=== PATIENT | male | born 1960 | race Caucasian/White ===

== ENCOUNTER 2020-02-14 16:19 | Inpatient (IN) ==
[2020-02-14] MEDS ORDERED: PIPERACILLIN/TAZOBACTAM 4.5 GM/120 ML BAG IV ONE (16:47)
[2020-02-14] MEDS ORDERED: SODIUM CHLORIDE 0.9% 1000ML 2,000 ML IV ONE (16:47)
[2020-02-14] MEDS ORDERED: ACETAMINOPHEN 1,000 MG/100 ML VIAL IV STA (16:47)
[2020-02-14] MEDS ORDERED: PIPERACILL/TAZOBAC CONSULT ACTIVE PRN ×2 (16:47→21:33)
--- NOTE | 2020-02-14 17:05 | Emergency Department Note ---
Impression & Plan Sepsis, Cellulitis, Elevated troponin, Acute hypokalemia ED Provider Note NAME: GUSTAVO DODD AGE: 59 SEX: M ARRIVES VIA: Walk-In INFORMANT: Patient, ED PROVIDER(S): Zelalem Dos Santos MD CHIEF COMPLAINT: Weakness, fever PLAN: Disposition: Admit MEDICAL DECISION MAKING: The patient is a pleasant 59-year-old gentleman with a past medical history of basal cell carcinoma who presents emergency department with fevers and increased confusion over the past 48 hours with generalized weakness and body aches in the setting of having a suspected basal cell carcinoma resection of the left forehead nonhealing lesion that had been present for approximately 2 years with a family history of skin cancer on 02/09, he was prescribed Bactrim for prophylaxis but he did not get this filled till yesterday, in the setting of having symptoms of vertigo over the past several weeks for which she had an order for an outpatient MRI of his brain. On arrival the patient is in no acute distress, afebrile with stable vital signs. He appears clinically dry. He has a 4 cm suture site of the left forehead with mild surrounding erythema and warmth without any purulent discharge. Neck is supple full range of motion. He has no focal neuro deficits though he does exhibit generalized weakness throughout. Abdomen is benign. EKG without overt acute ischemia. Chest x-ray negative for acute cardiopulmonary process. WBC 18.8K with neutrophil predominance. H/H 11.1/34.prior values for comparison. Platelets within normal limits. Chemistry without acidosis. Potassium 3.3 with repletion provided. AST 108 and otherwise electrolytes and LFTs unremarkable. Troponin 0.997, mildly elevated suspected to be related to demand. Procalcitonin is significantly elevated at 7.15. Upon arrival given the patient's presentation he was ordered for empiric broad- spectrum antibiotics with Zosyn and vancomycin. Patient's COVID-19 PCR was negative. On reevaluation patient was feeling improved after IV fluid hydration, APAP, antibiotics. I did review his results with the patient and his at the bedside and communicated our concern for sepsis. He is agreeable for admission. Case was discussed with Dr. Boyd, [facility] hospitalist, who will evaluate the patient for admission. CT abd pelvis, per preliminary [facility] report with evidence of cirrhosis. Otherwise, no acute process. Triage Nursing notes reviewed and agree them. Prior medical records reviewed Vital Signs: reviewed and remarkable for no significant abnormalities Differential diagnosis: Viral syndrome, otitis, pharyngitis, pneumonia, influenza, meningitis, urinary tract infection, sepsis, bacteremia, as well as other pathologies. ER treatment provided: See below Diagnostics interpreted by me: ECG: Sinus tachycardia, 118 bpm, no ectopy, nonspecific ST and T wave abnormality, no overt ST elevation or depression, QTC 555, QRS 96. Cardiac Monitoring: An order for continuous cardiac monitoring was placed and demonstrated sinus tachycardia, 118 bpm, no ectopy. Laboratory studies: See below Imaging studies: SINGLE VIEW CHEST CLINICAL HISTORY: Sepsis. FINDINGS: An AP, portable, upright chest radiograph is compared to study dated 04/07/2015. The examination is degraded by portable technique, apical lordotic positioning, and patient rotation. The heart is enlarged noting atherosclerotic calcification of the thoracic aorta. The pulmonary vasculature is noncongested. The lungs and pleural spaces are clear. No pneumothorax is seen. The bony thorax is grossly intact. IMPRESSION: Cardiomegaly with no active disease in the chest. -- UNENHANCED CT OF THE BRAIN; CT ANGIOGRAM OF THE BRAIN; CT ANGIOGRAM OF THE NECK CLINICAL HISTORY: Change in mental status. Vertigo. COMPARISON STUDY: No priors. TECHNIQUE: Unenhanced axial CT scan of the brain is performed. Subsequently, following the IV administration of 119 of Optiray 320, CT angiogram of the head and neck was performed from the aortic arch to the vertex. Images are reviewed in the axial, sagittal, and coronal planes. 3-D MIPS images are created and assessed. IV contrast was administered without complication. All measurements were calculated based on NASCET criteria. A dose lowering technique was utilized adhering to the principles of ALARA. CT DOSE: 1215.53 mGy.cm FINDINGS: Brain parenchyma: There is minimal microangiopathic disease. There is no hemorrhage, mass effect, or evidence of acute territorial ischemia by CT criteria. There is no evidence of enhancing mass lesion on the angiogram phase images. The ventricles, sulci, and cisterns are normal in configuration. Qureshi- white matter differentiation is preserved. A chronic lacunar infarct is noted in the right swartz radiata. No extra-axial fluid collection is seen. Thoracic aorta: There is atherosclerotic calcification of the thoracic aorta. Visualized portions of the thoracic aorta are normal in caliber. The aortic arch demonstrates standard 3-vessel anatomy. Right carotid arterial system: The right common carotid artery is widely patent, as are the right internal and external carotid arteries. Calcified plaque is noted in the carotid bulb. Left carotid arterial system: The left common carotid artery is widely patent, as are the left internal and external carotid arteries. Calcified plaque is noted in the carotid bulb. Vertebral arteries: The vertebral arteries are widely patent bilaterally noting a right-sided dominance. Subclavian arteries: Widely patent bilaterally. Intracranial vasculature: There is atherosclerotic calcification of the cavernous carotid arteries. The internal carotid arteries are patent at the skull base, as are the anterior and middle cerebral arteries bilaterally. The vertebrobasilar system and posterior cerebral arteries are widely patent. The right vertebral artery is dominant. 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 No additional aneurysm is identified. There is no high-grade stenosis or focal vessel cut off seen throughout the intracranial circulation. Jugular veins: Patent bilaterally. Dural sinuses: Patent. Lung apices: Partially visualized upper lobe lung parenchyma appears clear. A mildly enlarged right paratracheal lymph node measures 1.8 x 1.0 cm. Soft tissues: The visualized pharyngeal soft tissues are normal in appearance noting angiographic phase technique. The oropharyngeal airway appears widely patent. The salivary and thyroid glands are normal in appearance. No cervical lymphadenopathy is seen. Skeletal structures: The calvarium appears intact. The cervical spine is within normal limits. No lytic or blastic lesion is seen. Orbits: The bony orbits are intact. Orbital contents are normal as imaged. Sinuses and mastoids: The paranasal sinuses are clear. The mastoid air cells are well pneumatized. IMPRESSION: 1. There is no hemorrhage, mass effect, or evidence of acute territorial ischemia by CT criteria. 2. Unremarkable CT angiogram of the neck. 3. 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 4. Otherwise unremarkable CT angiogram of the brain. 5. A pathologically indeterminant and mildly enlarged right paratracheal lymph node is seen in the upper chest. -- [facility] Preliminary Findings Only See Final Report For Complete Findings CT ABDOMEN & PELVIS Without Contrast: There is a slightly nodular surface to the liver. The portal vein is mildly dilated measuring 1.9 cm in diameter. The spleen is upper limits of normal measuring 15 cm. Consider mild cirrhosis. No ascites is present. Constipation with 6 cm of stool in the rectum. No dilated bowel loops are present. The appendix is normal. No acute inflammatory changes are seen i nvolving the bowel. There is contrast within the renal collecting system bilaterally. No hydronephr osis or ureterolithiasis is seen. There is a 15 mm calcified sigmoid diverticula abutting the posterior bladder wall. Moderate osteophytosis in the lower thoracic and lower lumbar spine. No acute fracture or subluxation is seen.. Incidental note is made of mild cardiomegaly and moderate coronary and valvular calcification. Radiologist: Florian Moe MD Study ready at 20:24 and initial results transmitted at 20:44 Consultation(s): Case was discussed with Dr. Boyd, [facility] hospitalist, who will evaluate the patient for admission. HPI: The patient is a pleasant 59-year-old gentleman with a past medical history of basal cell carcinoma who presents emergency department with fevers and increased confusion over the past 48 hours with generalized weakness and body aches in the setting of having a suspected basal cell carcinoma resection of the left forehead nonhealing lesion that had been present for approximately 2 years with a family history of skin cancer on 02/09, he was prescribed Bactrim for prophylaxis but he did not get this filled till yesterday, in the setting of having symptoms of vertigo over the past several weeks for which outpatient MRI of his brain was ordered. Denies cough, congestion, CP, SOB, nausea, vomiting, diarrhea. ROS: See above HPI for pertinent positives & negatives. A total of 10 systems reviewed and were otherwise negative. PAST MEDICAL HISTORY:See Below PAST SURGICAL HISTORY:See Below FAMILY HISTORY:See Below SOCIAL HISTORY:See Below HOME MEDICATIONS:See Below ALLERGIES:See Below VITALS:See Below PHYSICAL EXAMINATION: GENERAL: Awake, alert, ill-appearing, in no distress HENT: Normocephalic, atraumatic. Oropharynx with dry mucous membranes and otherwise unremarkable. EYES: Normal conjunctiva. Sclera non-icteric. EOMI. No nystamgus. PEARRL. NECK: Supple. No nuchal rigidity. FROM. No JVD. RESPIRATORY: Clear to auscultation. CARDIAC: Regular rate, normal rhythm. Extremities warm and well perfused. Pulses equal. ABDOMEN: Soft, non-distended. No tenderness to palpation. No rebound or guarding. No masses. RECTAL: Deferred. MUSCULOSKELETAL: Chest examination reveals no tenderness. The back is symmetrical on inspection without obvious abnormality. There is no CVA tenderness to palpation. No joint edema. LOWER EXTREMITIES: Calves are equal size bilaterally and non-tender. No edema. No discoloration. NEURO: Normal sensorium. No focal sensory or motor deficits noted. Speech is fluent though he does have some delayed responses to questions. He has generalized weakness in all extremities with 4/5 strength. Intact finger-to- nose. SKIN: No rash or jaundice noted. ED COURSE: Critical Care: I have personally spent greater than 45 minutes of critical care time in the di rect management of this patient. This includes bedside care, interpretation of diagnostic studies, and testing, discussion with consultants, patient, and family members, and other required patient management activities. This 45 minutes is in excess of all separately billable procedures. Zelalem Dos Santos MD Past Med/Surg History Medical History Asthma Benign essential hypertension Diabetes mellitus Obstructive sleep apnea Surgical History History of vasectomy Family History Father Heart disease Hypertension, Onset Age: 50 Kidney disease, Onset Age: 30 Kidney stones as young man Myocardial infarction Passed in 2006 with heart attack age 78 Brother Asthma Prostate cancer, Onset Age: 61 Treated Radiation and hormonal. Cancer younger brother, skin cancer Mother Cancer Skin cancer Brother Cancer skin cancer Denies family history of Ovarian cancer Diabetes Breast cancer Lung cancer Colorectal cancer Stroke Social History Smoking Status: Never smoker Second Hand Exposure: No; Do You Dip or Chew Tobacco: No; Hx Alcohol Use: Yes Alcohol type: beer Alcohol Intake Frequency: 2-4 x/Month Hx Substance Use: No Preferred Language: Mohawk Communication Ability: Effective Communication Ability Comment: [place] Hearing Ability: Hard of Hearing Bin Filler Required: No Beliefs That Will Affect Care: None marital status: Current Living Situation: Spouse current occupational status: employed 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 How many Children do You have: 0 How many Children do You have Comment: 1 step child Other Information That Helps Us Care for You: No Feels Safe at Home: Yes Safety Concerns: Feels Safe At This Time Childhood Exposure to Second-Hand Smoke: No Seatbelt Use: always Sunscreen Use: Yes Assistive Devices: CPAP and Glasses Allergies Allergies Allergy/AdvReac Type Severity Reaction Status Date / Time No Known Allergies Allergy Verified 02/10/20 11:31 Home Meds Home Medications Medication Instructions Recorded Confirmed ibuprofen [Advil] 400 mg PO Q6H PRN 02/14/20 02/14/20 Previous Rx's Medication Instructions Recorded sulfamethoxazole 800 1 tab PO BID 14 Days #28 tab 02/12/20 mg-trimethoprim 160 mg tablet Results & Data (ED) Vital Signs Vital Signs - 24 hr 02/14/20 16:22 02/14/20 16:40 02/14/20 16:45 Temperature 39.4 C H Temperature Source Oral Pulse Rate 125 H 119 H 117 H Pulse Rate [Apical] Pulse Rate from SpO2 Sensor 120 H 117 H Pulse Rhythm [Apical] Pulse Strength [Apical] Respiratory Rate 18 28 H 33 H Respiratory Effort / Characteristics Non-Labored Respiratory Depth Normal Respiratory Pattern Blood Pressure 124/70 114/66 119/69 Blood Pressure [Left Arm] Blood Pressure Mean 88 74 90 Blood Pressure Mean [Left Arm] Pulse Oximetry 97 95 95 Oxygen Delivery Method Room Air Sepsis Recent Fever Within 48 Hours Yes Sepsis New/Unexplained Change in Mental Status Yes Sepsis Action Taken by Nursing Physician Notified 02/14/20 16:50 02/14/20 17:00 02/14/20 17:15 Temperature Temperature Source Pulse Rate 117 H 122 H Pulse Rate [Apical] Pulse Rate from SpO2 Sensor 117 H 123 H Pulse Rhythm [Apical] Pulse Strength [Apical] Respiratory Rate 22 21 14 Respiratory Effort / Characteristics Non-Labored Respiratory Depth Respiratory Pattern Blood Pressure 121/72 108/58 L Blood Pressure [Left Arm] Blood Pressure Mean 88 79 Blood Pressure Mean [Left Arm] Pulse Oximetry 93 94 92 Oxygen Delivery Method Room Air Sepsis Recent Fever Within 48 Hours Sepsis New/Unexplained Change in Mental Status Sepsis Action Taken by Nursing 02/14/20 17:30 02/14/20 17:34 02/14/20 17:45 Temperature Temperature Source Pulse Rate 112 H 109 H Pulse Rate [Apical] Pulse Rate from SpO2 Sensor Pulse Rhythm [Apical] Pulse Strength [Apical] Respiratory Rate 22 Respiratory Effort / Characteristics Non-Labored Respiratory Depth Respiratory Pattern Blood Pressure 101/66 101/51 L Blood Pressure [Left Arm] Blood Pressure Mean 72 54 Blood Pressure Mean [Left Arm] Pulse Oximetry 93 Oxygen Delivery Method Room Air Sepsis Recent Fever Within 48 Hours Sepsis New/Unexplained Change in Mental Status Sepsis Action Taken by Nursing 02/14/20 18:00 02/14/20 18:18 02/14/20 18:23 Temperature Temperature Source Pulse Rate 87 98 H 96 H Pulse Rate [Apical] Pulse Rate from SpO2 Sensor 98 H 96 H Pulse Rhythm [Apical] Pulse Strength [Apical] Respiratory Rate 10 L Respiratory Effort / Characteristics Respiratory Depth Respiratory Pattern Blood Pressure 104/59 L 104/61 Blood Pressure [Left Arm] Blood Pressure Mean 73 70 Blood Pressure Mean [Left Arm] Pulse Oximetry 96 96 Oxygen Delivery Method Sepsis Recent Fever Within 48 Hours Sepsis New/Unexplained Change in Mental Status Sepsis Action Taken by Nursing 02/14/20 18:30 02/14/20 18:48 02/14/20 19:00 Temperature 36.7 C Temperature Source Oral Pulse Rate 95 H 89 Pulse Rate [Apical] Pulse Rate from SpO2 Sensor 95 H Pulse Rhythm [Apical] Pulse Strength [Apical] Respiratory Rate 25 H 29 H Respiratory Effort / Characteristics Non-Labored Respiratory Depth Respiratory Pattern Blood Pressure 109/63 106/63 Blood Pressure [Left Arm] Blood Pressure Mean 70 78 Blood Pressure Mean [Left Arm] Pulse Oximetry 96 Oxygen Delivery Method Room Air Sepsis Recent Fever Within 48 Hours Sepsis New/Unexplained Change in Mental Status Sepsis Action Taken by Nursing 02/14/20 19:15 02/14/20 19:30 02/14/20 19:34 Temperature Temperature Source Pulse Rate 102 H 89 Pulse Rate [Apical] 90 Pulse Rate from SpO2 Sensor 89 Pulse Rhythm [Apical] Regular Pulse Strength [Apical] Normal Respiratory Rate 26 H 16 18 Respiratory Effort / Characteristics Respiratory Depth Normal Respiratory Pattern Regular Blood Pressure 121/73 98/59 L Blood Pressure [Left Arm] 98/59 L Blood Pressure Mean 92 71 Blood Pressure Mean [Left Arm] 72 Pulse Oximetry 97 97 Oxygen Delivery Method Room Air Sepsis Recent Fever Within 48 Hours Sepsis New/Unexplained Change in Mental Status Sepsis Action Taken by Nursing Laboratory Data Attestation: I reviewed the patient's lab results. Result diagrams: 02/14/20 16:50 02/14/20 16:50 Lab Results 02/14/20 02/14/2020 Range/Units 16:50 16:50 16:50 WBC 18.83 H (4.8-10.8) K/uL RBC 3.67 L (4.7-6.1) M/uL Hgb 11.1 L (14.0-18.0) g/dL POC Hgb (14.0-18.0) g/dl Hct 34.0 L (42-52) % POC Hct (42-52) % MCV 92.6 (80-100) fL MCH 30.2 (25-34) pg MCHC 32.6 (32-36) g/dL RDW Std Deviation 44.1 (36.4-46.3) fL RDW Coeff of Arely 13.1 (11.5-14.5) % Plt Count 160 (130-400) K/uL MPV 10.8 H (7.4-10.4) fL Immature Gran % (Auto) 0.3 % Neut % (Auto) 89.7 % Lymph % (Auto) 5.1 % Harris % (Auto) 4.8 % Eos % (Auto) 0.0 % Baso % (Auto) 0.1 % Neut # (Auto) 16.89 H (1.4-6.5) K/uL Lymph # (Auto) 0.96 L (1.2-3.4) K/uL Harris # (Auto) 0.91 H (0.11-0.59) K/uL Eos # (Auto) 0.00 (0-0.5) K/uL Baso # (Auto) 0.01 (0-0.2) K/uL Immature Gran # (Auto) 0.06 H (0.00-0.02) K/uL PT 13.7 H (9.0-12.0) Seconds INR 1.3 H (0.9-1.1) APTT 31.1 H (21.0-31.0) Seconds PTT Ratio 1.1 POC Sodium (135-144) mmol/L Sodium 131 L (136-145) mmol/L POC Potassium (3.3-5.0) mmol/L Potassium 3.3 L (3.5-5.1) mmol/L POC Chloride (101-112) mmol/L Chloride 97 L (98-107) mmol/L Carbon Dioxide 26 (21-32) mmol/L POC Total CO2 (24-31) mmol/L Anion Gap 8.0 (3-11) POC Anion Gap (16-25) mmol/L POC BUN (7-18) mg/dl BUN 16 (7-18) mg/dl Creatinine 1.15 (0.6-1.4) mg/dl POC Creatinine (0.6-1.3) mg/dl Est Cr Clr Drug Dosing 73.8 ml/min Est GFR ( Amer) 79.7 Est GFR (Non-Af Amer) 68.8 BUN/Creatinine Ratio 13.8 (10-20) Glucose 122 H (70-99) mg/dl POC Glucose (other) (70-99) mg/dl Lactate (0.4-2.0) mmol/L Calcium 9.2 (8.5-10.1) mg/dl POC Ioniz Calcium Kade (1.12-1.32) mmol/l Phosphorus 2.8 (2.5-4.9) mg/dl Magnesium 1.9 (1.8-2.4) mg/dl Total Bilirubin 1.1 H (0.2-1) mg/dl Direct Bilirubin 0.4 H (0-0.2) mg/dl AST 108 H (15-37) U/L ALT 30 (12-78) U/L Alkaline Phosphatase 93 (45-117) U/L Troponin I 0.997 H* (0-0.045) ng/ml Total Protein 6.9 (6.4-8.2) gm/dl Albumin 2.7 L (3.4-5.0) gm/dl Globulin 4.1 H (2.5-4.0) gm/dl Albumin/Globulin Ratio 0.7 L (0.9-2) Lipase 236 (73-393) U/L Procalcitonin (0-0.5) ng/ml TSH 1.350 (0.300-4.500) uIu/ml Urine Color Urine Appearance (Clear) Urine pH (4.5-7.5) Ur Specific [place] (1.000-1.030) Urine Protein (Negative) Urine Glucose (UA) (Negative) Urine Ketones (Negative) Urine Blood (Negative) Urine Nitrite (Negative) Urine Bilirubin (Negative) Urine Urobilinogen (Negative) Ur Leukocyte Esterase (Negative) Urine WBC (Auto) (0-5) /hpf Urine RBC (Auto) (0-4) /hpf U Hyaline Cast (Auto) (0-5) /lpf U Epithel Cells (Auto) (0-5) /lpf Urine Bacteria (Auto) (Negative) Urine Yeast Ethyl Alcohol mg/dL (0-3) mg/dl COVID-19 Eval Order COVID-19 PCR (Negative) 02/14/20 02/14/20 02/14/20 Range/Units 16:50 16:50 16:50 WBC (4.8-10.8) K/uL RBC (4.7-6.1) M/uL Hgb (14.0-18.0) g/dL POC Hgb (14.0-18.0) g/dl Hct (42-52) % POC Hct (42-52) % MCV (80-100) fL MCH (25-34) pg MCHC (32-36) g/dL RDW Std Deviation (36.4-46.3) fL RDW Coeff of Arely (11.5-14.5) % Plt Count (130-400) K/uL MPV (7.4-10.4) fL Immature Gran % (Auto) % Neut % (Auto) % Lymph % (Auto) % Harris % (Auto) % Eos % (Auto) % Baso % (Auto) % Neut # (Auto) (1.4-6.5) K/uL Lymph # (Auto) (1.2-3.4) K/uL Harris # (Auto) (0.11-0.59) K/uL Eos # (Auto) (0-0.5) K/uL Baso # (Auto) (0-0.2) K/uL Immature Gran # (Auto) (0.00-0.02) K/uL PT (9.0-12.0) Seconds INR (0.9-1.1) APTT (21.0-31.0) Seconds PTT Ratio POC Sodium (135-144) mmol/L Sodium (136-145) mmol/L POC Potassium (3.3-5.0) mmol/L Potassium (3.5-5.1) mmol/L POC Chloride (101-112) mmol/L Chloride (98-107) mmol/L Carbon Dioxide (21-32) mmol/L POC Total CO2 (24-31) mmol/L Anion Gap (3-11) POC Anion Gap (16-25) mmol/L POC BUN (7-18) mg/dl BUN (7-18) mg/dl Creatinine (0.6-1.4) mg/dl POC Creatinine (0.6-1.3) mg/dl Est Cr Clr Drug Dosing ml/min Est GFR ( Amer) Est GFR (Non-Af Amer) BUN/Creatinine Ratio (10-20) Glucose (70-99) mg/dl POC Glucose (other) (70-99) mg/dl Lactate (0.4-2.0) mmol/L Calcium (8.5-10.1) mg/dl POC Ioniz Calcium Kade (1.12-1.32) mmol/l Phosphorus (2.5-4.9) mg/dl Magnesium (1.8-2.4) mg/dl Total Bilirubin (0.2-1) mg/dl Direct Bilirubin (0-0.2) mg/dl AST (15-37) U/L ALT (12-78) U/L Alkaline Phosphatase (45-117) U/L Troponin I (0-0.045) ng/ml Total Protein (6.4-8.2) gm/dl Albumin (3.4-5.0) gm/dl Globulin (2.5-4.0) gm/dl Albumin/Globulin Ratio (0.9-2) Lipase (73-393) U/L Procalcitonin 7.15 H (0-0.5) ng/ml TSH (0.300-4.500) uIu/ml Urine Color Urine Appearance (Clear) Urine pH (4.5-7.5) Ur Specific [place] (1.000-1.030) Urine Protein (Negative) Urine Glucose (UA) (Negative) Urine Ketones (Negative) Urine Blood (Negative) Urine Nitrite (Negative) Urine Bilirubin (Negative) Urine Urobilinogen (Negative) Ur Leukocyte Esterase (Negative) Urine WBC (Auto) (0-5) /hpf Urine RBC (Auto) (0-4) /hpf U Hyaline Cast (Auto) (0-5) /lpf U Epithel Cells (Auto) (0-5) /lpf Urine Bacteria (Auto) (Negative) Urine Yeast Ethyl Alcohol mg/dL (0-3) mg/dl COVID-19 Eval Order Covid[address] [facility] COVID-19 PCR NEGATIVE (Negative) 02/14/20 02/14/20 02/14/20 Range/Units 17:06 17:10 19:20 WBC (4.8-10.8) K/uL RBC (4.7-6.1) M/uL Hgb (14.0-18.0) g/dL POC Hgb 11.6 L (14.0-18.0) g/dl Hct (42-52) % POC Hct 34 L (42-52) % MCV (80-100) fL MCH (25-34) pg MCHC (32-36) g/dL RDW Std Deviation (36.4-46.3) fL RDW Coeff of Arely (11.5-14.5) % Plt Count (130-400) K/uL MPV (7.4-10.4) fL Immature Gran % (Auto) % Neut % (Auto) % Lymph % (Auto) % Harris % (Auto) % Eos % (Auto) % Baso % (Auto) % Neut # (Auto) (1.4-6.5) K/uL Lymph # (Auto) (1.2-3.4) K/uL Harris # (Auto) (0.11-0.59) K/uL Eos # (Auto) (0-0.5) K/uL Baso # (Auto) (0-0.2) K/uL Immature Gran # (Auto) (0.00-0.02) K/uL PT (9.0-12.0) Seconds INR (0.9-1.1) APTT (21.0-31.0) Seconds PTT Ratio POC Sodium 131 L (135-144) mmol/L Sodium (136-145) mmol/L POC Potassium 3.3 (3.3-5.0) mmol/L Potassium (3.5-5.1) mmol/L POC Chloride 94 L (101-112) mmol/L Chloride (98-107) mmol/L Carbon Dioxide (21-32) mmol/L POC Total CO2 23 L (24-31) mmol/L Anion Gap (3-11) POC Anion Gap 19.0 (16-25) mmol/L POC BUN 16 (7-18) mg/dl BUN (7-18) mg/dl Creatinine (0.6-1.4) mg/dl POC Creatinine 0.9 (0.6-1.3) mg/dl Est Cr Clr Drug Dosing ml/min Est GFR ( Amer) Est GFR (Non-Af Amer) BUN/Creatinine Ratio (10-20) Glucose (70-99) mg/dl POC Glucose (other) 127 H (70-99) mg/dl Lactate 1.1 (0.4-2.0) mmol/L Calcium (8.5-10.1) mg/dl POC Ioniz Calcium Kade 1.12 (1.12-1.32) mmol/l Phosphorus (2.5-4.9) mg/dl Magnesium (1.8-2.4) mg/dl Total Bilirubin (0.2-1) mg/dl Direct Bilirubin (0-0.2) mg/dl AST (15-37) U/L ALT (12-78) U/L Alkaline Phosphatase (45-117) U/L Troponin I (0-0.045) ng/ml Total Protein (6.4-8.2) gm/dl Albumin (3.4-5.0) gm/dl Globulin (2.5-4.0) gm/dl Albumin/Globulin Ratio (0.9-2) Lipase (73-393) U/L Procalcitonin (0-0.5) ng/ml TSH (0.300-4.500) uIu/ml Urine Color Yellow Urine Appearance Clear (Clear) Urine pH 5.0 (4.5-7.5) Ur Specific [place] > 1.045 H (1.000-1.030) Urine Protein 1+ H (Negative) Urine Glucose (UA) Negative (Negative) Urine Ketones Negative (Negative) Urine Blood 3+ H (Negative) Urine Nitrite Negative (Negative) Urine Bilirubin Negative (Negative) Urine Urobilinogen Negative (Negative) Ur Leukocyte Esterase Negative (Negative) Urine WBC (Auto) 1-5 (0-5) /hpf Urine RBC (Auto) 0-4 (0-4) /hpf U Hyaline Cast (Auto) 1-5 (0-5) /lpf U Epithel Cells (Auto) 5-10 H (0-5) /lpf Urine Bacteria (Auto) Negative (Negative) Urine Yeast Not Reportable Ethyl Alcohol mg/dL (0-3) mg/dl COVID-19 Eval Order COVID-19 PCR (Negative) 02/14/20 Range/Units 19:22 WBC (4.8-10.8) K/uL RBC (4.7-6.1) M/uL Hgb (14.0-18.0) g/dL POC Hgb (14.0-18.0) g/dl Hct (42-52) % POC Hct (42-52) % MCV (80-100) fL MCH (25-34) pg MCHC (32-36) g/dL RDW Std Deviation (36.4-46.3) fL RDW Coeff of Arely (11.5-14.5) % Plt Count (130-400) K/uL MPV (7.4-10.4) fL Immature Gran % (Auto) % Neut % (Auto) % Lymph % (Auto) % Harris % (Auto) % Eos % (Auto) % Baso % (Auto) % Neut # (Auto) (1.4-6.5) K/uL Lymph # (Auto) (1.2-3.4) K/uL Harris # (Auto) (0.11-0.59) K/uL Eos # (Auto) (0-0.5) K/uL Baso # (Auto) (0-0.2) K/uL Immature Gran # (Auto) (0.00-0.02) K/uL PT (9.0-12.0) Seconds INR (0.9-1.1) APTT (21.0-31.0) Seconds PTT Ratio POC Sodium (135-144) mmol/L Sodium (136-145) mmol/L POC Potassium (3.3-5.0) mmol/L Potassium (3.5-5.1) mmol/L POC Chloride (101-112) mmol/L Chloride (98-107) mmol/L Carbon Dioxide (21-32) mmol/L POC Total CO2 (24-31) mmol/L Anion Gap (3-11) POC Anion Gap (16-25) mmol/L POC BUN (7-18) mg/dl BUN (7-18) mg/dl Creatinine (0.6-1.4) mg/dl POC Creatinine (0.6-1.3) mg/dl Est Cr Clr Drug Dosing ml/min Est GFR ( Amer) Est GFR (Non-Af Amer) BUN/Creatinine Ratio (10-20) Glucose (70-99) mg/dl POC Glucose (other) (70-99) mg/dl Lactate (0.4-2.0) mmol/L Calcium (8.5-10.1) mg/dl POC Ioniz Calcium Kade (1.12-1.32) mmol/l Phosphorus (2.5-4.9) mg/dl Magnesium (1.8-2.4) mg/dl Total Bilirubin (0.2-1) mg/dl Direct Bilirubin (0-0.2) mg/dl AST (15-37) U/L ALT (12-78) U/L Alkaline Phosphatase (45-117) U/L Troponin I (0-0.045) ng/ml Total Protein (6.4-8.2) gm/dl Albumin (3.4-5.0) gm/dl Globulin (2.5-4.0) gm/dl Albumin/Globulin Ratio (0.9-2) Lipase (73-393) U/L Procalcitonin (0-0.5) ng/ml TSH (0.300-4.500) uIu/ml Urine Color Urine Appearance (Clear) Urine pH (4.5-7.5) Ur Specific [place] (1.000-1.030) Urine Protein (Negative) Urine Glucose (UA) (Negative) Urine Ketones (Negative) Urine Blood (Negative) Urine Nitrite (Negative) Urine Bilirubin (Negative) Urine Urobilinogen (Negative) Ur Leukocyte Esterase (Negative) Urine WBC (Auto) (0-5) /hpf Urine RBC (Auto) (0-4) /hpf U Hyaline Cast (Auto) (0-5) /lpf U Epithel Cells (Auto) (0-5) /lpf Urine Bacteria (Auto) (Negative) Urine Yeast Ethyl Alcohol mg/dL < 3.0 (0-3) mg/dl COVID-19 Eval Order COVID-19 PCR (Negative) Administered Medications Acetaminophen (Acetaminophen 325 Mg Tab) 650 mg PO Q4H PRN PRN Reason: Pain or Fever Stop: 03/15/20 21:32 Last Admin: 02/15/20 02:58 Dose: 650 mg Documented by: [id number] Heparin Sodium (Porcine) (Heparin Sod 5,000 Unit/0.5 Ml Vial) 5,000 units SQ Q12 PIPER Stop: 03/15/20 21:59 Last Admin: 02/14/20 22:02 Dose: Not Given Documented by: [id number] Potassium Chloride/Sodium Chloride (Normal Saline W/20 Meq Kcl) 20 meq in 1,000 mls @ 100 mls/hr IV .Q10H PIPER Stop: 03/15/20 21:59 Last Admin: 02/14/20 22:15 Dose: 100 mls/hr Documented by: [id number] Vancomycin HCl 1,250 mg/ (Sodium Chloride) 275 mls @ 200 mls/hr IV Q12H PIPER; Protocol Stop: 02/17/20 03:59 Last Admin: 02/15/20 02:57 Dose: 200 mls/hr Documented by: [id number] Piperacillin Sod/Tazobactam (Sod 3.375 gm/ Dextrose) 115 mls @ 28.75 mls/hr IV Q8H PIPER; Protocol Stop: 02/16/20 21:59 Last Infusion: 02/15/20 02:30 Dose: 0 mls/hr Documented by: [id number] Admin: 02/14/20 22:23 Dose: 28.8 mls/hr Documented by: [id number] Discontinued Medications Sodium Chloride (Nss 1000ml) 2,000 mls @ 999 mls/hr IV .Q2H1M ONE Stop: 02/14/20 18:47 Last Infusion: 02/14/20 19:11 Dose: 0 mls/hr Documented by: [id number] Admin: 02/14/20 17:02 Dose: 999 mls/hr Documented by: [id number] Acetaminophen (Ofirmev) 1,000 mg in 100 mls @ 400 mls/hr IV NOW STA Stop: 02/14/20 17:01 Last Infusion: 02/14/20 17:17 Dose: 0 mls/hr Documented by: [id number] Admin: 02/14/20 17:02 Dose: 400 mls/hr Documented by: [id number] Piperacillin Sod/Tazobactam Sod (Zosyn) 4.5 gm in 120 mls @ 240 mls/hr IV NOW ONE Stop: 02/14/20 17:16 Last Infusion: 02/14/20 17:40 Dose: 0 mls/hr Documented by: [id number] Admin: 02/14/20 17:10 Dose: 240 mls/hr Documented by: [id number] Vancomycin HCl 1,750 mg/ (Sodium Chloride) 535 mls @ 200 mls/hr IV NOW ONE Stop: 02/14/20 19:58 Last Infusion: 02/14/20 21:43 Dose: 0 mls/hr Documented by: [id number] Admin: 02/14/20 18:21 Dose: 200 mls/hr Documented by: [id number] Lorazepam (Ativan) 1 mg in 2 mls @ 2 mls/min IV NOW STA Stop: 02/14/20 19:00 Last Admin: 02/14/20 19:24 Dose: 2 mls/min Documented by: [id number] Potassium Chloride (K Duncan / Wtr) 10 meq in 100 mls @ 100 mls/hr IV Q1H PIPER Stop: 02/14/20 21:14 Last Admin: 02/14/20 22:23 Dose: Not Given Documented by: [id number] Infusion: 02/14/20 21:43 Dose: 0 mls/hr Documented by: [id number] Admin: 02/14/20 20:45 Dose: 100 mls/hr Documented by: [id number] Multivitamins 10 ml/ Thiamine HCl 100 mg/ Folic Acid 1 mg/Sodium Chloride 1,011.2 mls @ 1,011.2 mls/hr IV .Q1H ONE Stop: 02/14/20 20:00 Last Infusion: 02/14/20 20:49 Dose: 0 mls/hr Documented by: [id number] Admin: 02/14/20 19:32 Dose: 1,011.2 mls/hr Documented by: [id number] Albumin Human (Albumin 25%) 50 mls @ 50 mls/hr IV Q1H PIPER Stop: 02/14/20 22:29 Last Infusion: 02/14/20 22:36 Dose: 0 mls/hr Documented by: [id number] Admin: 02/14/20 22:12 Dose: 50 mls/hr Documented by: [id number] Infusion: 02/14/20 22:12 Dose: 0 mls/hr Documented by: [id number] Infusion: 02/14/20 22:10 Dose: 0 mls/hr Documented by: [id number] Admin: 02/14/20 22:01 Dose: 50 mls/hr Documented by: [id number] Potassium Chloride (K Duncan / Wtr) 10 meq in 100 mls @ 100 mls/hr IV 2215 ONE Stop: 02/14/20 23:14 Last Infusion: 02/14/20 23:27 Dose: 0 mls/hr Documented by: [id number] Admin: 02/14/20 22:23 Dose: 100 mls/hr Documented by: [id number] Ioversol (Optiray 320 125ml) 119 ml IV ONCE ONE Stop: 02/14/20 18:07 Last Admin: 02/14/20 18:06 Dose: 119 ml Documented by: [id number] Ketorolac Tromethamine (Ketorolac Tromethamine 15 Mg/Ml Vial) 15 mg IV NOW STA Stop: 02/14/20 19:02 Last Admin: 02/14/20 19:24 Dose: 15 mg Documented by: [id number] Discharge Plan Visit Data Chief Complaint: Weakness Stated Complaint: VERTIGO ED Provider: Zelalem Dos Santos Discharge Problem: Sepsis, Cellulitis, Elevated troponin, Acute hypokalemia Patient Disposition: Admitted As Inpatient Discharge Instructions Interventions: ED Discharge Assessment Last Done: 02/14/20 21:14 Discharge Problem: Sepsis Qualifiers: Sepsis type: sepsis due to unspecified organism Sepsis acute organ dysfunction status: with acute organ dysfunction Severe sepsis acute organ dysfunction type: unspecified Severe sepsis shock status: without septic shock Qualified Code(s): A41.9 - Sepsis, unspecified organism
[2020-02-14 17:12] LABS: Basophils # (auto) 0.01 K/uL (0-0.2); Basophils % (auto) 0.1 %; Hemoglobin 11.1 g/dL (14.0-18.0); Immature Granulocytes # (auto) 0.06 K/uL (0.00-0.02); Immature Granulocytes % (auto) 0.3 %; Lymphocytes # (auto) 0.96 K/uL (1.2-3.4); Lymphocytes % (auto) 5.1 %; Mean Corpuscular Hemoglobin 30.2 pg (25-34); Mean Corpuscular Hgb Conc 32.6 g/dL (32-36); Mean Corpuscular Volume 92.6 fL (80-100); Mean Platelet Volume 10.8 fL (7.4-10.4); Monocytes # (auto) 0.91 K/uL (0.11-0.59); Monocytes % (auto) 4.8 %; Neutrophils # (auto) 16.89 K/uL (1.4-6.5); Neutrophils % (auto) 89.7 %; Platelet Count 160 K/uL (130-400); RDW Coefficient of Variation 13.1 % (11.5-14.5); RDW Standard Deviation 44.1 fL (36.4-46.3); Red Blood Count 3.67 M/uL (4.7-6.1); White Blood Count 18.83 K/uL (4.8-10.8)
[2020-02-14] MEDS ORDERED: VANCOMYCIN HCL 1,750 MG in SODIUM CHLORIDE 0.9% 500 ML IV ONE (17:18)
[2020-02-14] MEDS ORDERED: VANCOMYCIN CONSULT ACTIVE PRN ×2 (17:18→21:33)
[2020-02-14 17:22] LABS: iSTAT Creatinine 0.9 mg/dl (0.6-1.3); iSTAT Hemoglobin 11.6 g/dl (14.0-18.0); iSTAT Ionized Calcium 1.12 mmol/l (1.12-1.32); iSTAT Potassium 3.3 mmol/L (3.3-5.0)
[2020-02-14 17:23] LABS: INR 1.3 (0.9-1.1); Partial Thromboplastin Ratio 1.1; Partial Thromboplastin Time 31.1 Seconds (21.0-31.0); Prothrombin Time 13.7 Seconds (9.0-12.0)
[2020-02-14 17:32] LABS: Albumin Level 2.7 gm/dl (3.4-5.0); BUN Creatinine Ratio 13.8 (10-20); Bilirubin Direct 0.4 mg/dl (0-0.2); Calcium 9.2 mg/dl (8.5-10.1); Creatinine Clr Calc Pharmacy 73.8 ml/min; Est GFR (African American) 79.7; Est GFR (Non-African American) 68.8; Magnesium 1.9 mg/dl (1.8-2.4); Potassium 3.3 mmol/L (3.5-5.1)
--- NOTE | 2020-02-14 17:38 | XRay Report ---
SINGLE VIEW CHEST CLINICAL HISTORY: Sepsis. FINDINGS: An AP, portable, upright chest radiograph is compared to study dated 04/07/2015. The examina tion is degraded by portable technique, apical lordotic positioning, and patient rotation. The heart is enlarged noting atherosclerotic calcification of the thoracic aorta. The pulmonary vasculature is noncongested. The lungs and pleural spaces are clear. No pneumothorax is seen. The bony thorax is gr ossly intact. IMPRESSION: Cardiomegaly with no active disease in the chest. ACT 112: Negative or not required by law. Electronically signed by: Nahun Hager M.D. 02/14/2020 5:37 PM
[2020-02-14 17:53] LABS: Albumin Globulin Ratio 0.7 (0.9-2); Bilirubin,Total 1.1 mg/dl (0.2-1); Globulin 4.1 gm/dl (2.5-4.0); Phosphorus 2.8 mg/dl (2.5-4.9); Thyroid Stimulating Hormone 1.35 uIu/ml (0.300-4.500); Total Protein 6.9 gm/dl (6.4-8.2); Troponin I 0.997 ng/ml (0-0.045)
[2020-02-14] MEDS ORDERED: OPTIRAY 320 125ml IV ONE (18:06)
--- NOTE | 2020-02-14 18:34 | CT Scan Report ---
UNENHANCED CT OF THE BRAIN; CT ANGIOGRAM OF THE BRAIN; CT ANGIOGRAM OF THE NECK CLINICAL HISTORY: Change in mental status. Vertigo. COMPARISON STUDY: No priors. TECHNIQUE: Unenhanced axial CT scan of the brain is performed. Subsequently, following the IV adminis tration of 119 of Optiray 320, CT angiogram of the head and neck was performed from the aortic arch t o the vertex. Images are reviewed in the axial, sagittal, and coronal planes. 3-D MIPS images are cre ated and assessed. IV contrast was administered without complication. All measurements were calculate d based on NASCET criteria. A dose lowering technique was utilized adhering to the principles of ALA RA. CT DOSE: 1215.53 mGy.cm FINDINGS: Brain parenchyma: There is minimal microangiopathic disease. There is no hemorrhage, mass effect, or evidence of acute territorial ischemia by CT criteria. There is no evidence of enhancing mass lesion on the angiogram phase images. The ventricles, sulci, and cisterns are normal in configuration. Qureshi- white matter differentiation is preserved. A chronic lacunar infarct is noted in the right swartz rad iata. No extra-axial fluid collection is seen. Thoracic aorta: There is atherosclerotic calcification of the thoracic aorta. Visualized portions of the thoracic aorta are normal in caliber. The aortic arch demonstrates standard 3-vessel anatomy. Right carotid arterial system: The right common carotid artery is widely patent, as are the right int ernal and external carotid arteries. Calcified plaque is noted in the carotid bulb. Left carotid arterial system: The left common carotid artery is widely patent, as are the left director internal communications al and external carotid arteries. Calcified plaque is noted in the carotid bulb. Vertebral arteries: The vertebral arteries are widely patent bilaterally noting a right-sided dominan ce. Subclavian arteries: Widely patent bilaterally. Intracranial vasculature: There is atherosclerotic calcification of the cavernous carotid arteries. T he internal carotid arteries are patent at the skull base, as are the anterior and middle cerebral ar teries bilaterally. The vertebrobasilar system and posterior cerebral arteries are widely patent. The right vertebral artery is dominant. 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 No additional aneurysm is identified. There is no high-grade stenosis or focal vessel cut off seen throughout the intracranial circulation. Jugular veins: Patent bilaterally. Dural sinuses: Patent. Lung apices: Partially visualized upper lobe lung parenchyma appears clear. A mildly enlarged right p aratracheal lymph node measures 1.8 x 1.0 cm. Soft tissues: The visualized pharyngeal soft tissues are normal in appearance noting angiographic pha se technique. The oropharyngeal airway appears widely patent. The salivary and thyroid glands are nor mal in appearance. No cervical lymphadenopathy is seen. Skeletal structures: The calvarium appears intact. The cervical spine is within normal limits. No lyt ic or blastic lesion is seen. Orbits: The bony orbits are intact. Orbital contents are normal as imaged. Sinuses and mastoids: The paranasal sinuses are clear. The mastoid air cells are well pneumatized. IMPRESSION: 1. There is no hemorrhage, mass effect, or evidence of acute territorial ischemia by CT criteria. 2. Unremarkable CT angiogram of the neck. 3. 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 4. Otherwise unremarkable CT angiogram of the brain. 5. A pathologically indeterminant and mildly enlarged right paratracheal lymph node is seen in the up per chest. ACT 112: Negative or not required by law. Electronically signed by: Nahun Hager M.D. 02/14/2020 6:33 PM
[2020-02-14] MEDS ORDERED: LORazepam 1 MG/2 ML VIAL IV STA (18:59)
[2020-02-14] MEDS ORDERED: MULTI-VITAMIN INFUSION 10 ML, THIAMINE HCL 100 MG, FOLIC ACID 1 MG in SODIUM CHLORIDE 0... IV ONE (19:01)
[2020-02-14] MEDS ORDERED: KETOROLAC TROMETHAMINE 15 MG/ML VIAL IV STA (19:01)
[2020-02-14 19:34] LABS: Appearance Urine Clear (Clear); Bacteria Urine Automated Negative (Negative); Bilirubin Urine Negative (Negative); Blood Urine 3+ (Negative); Color Urine Yellow; Glucose Urine UA Negative (Negative); Ketones Urine Negative (Negative); Leukocyte Esterase Urine Negative (Negative); Nitrite Urine Negative (Negative); Protein Urine 1+ (Negative); RBC Urine Automated 0-4 /hpf (0-4); Specific Gravity Urine > 1.045 (1.000-1.030); Urobilinogen Urine Negative (Negative)
--- NOTE | 2020-02-14 20:09 | History & Physical Report ---
Date of Service February 14, 2020 Assessment & Plan (1) Elevated troponin: The patient will be admitted to telemetry for serial cardiac enzymes, serial EKG's, cardiac rhythm monitoring and a 2-D echocardiogram with Dopplers. Troponin upon admission 0.997. Patient with new heart murmur, symptoms of generalized weakness, confusion, vertigo and sepsis over the past month Concern regarding possibility of endocarditis. Continue vancomycin IV and Zosyn IV begun in the ED for empiric treatment. Consult cardiology Present on Admission?: Yes (2) Heart murmur: See above Present on Admission?: Yes (3) Vertigo: MRI brain had been arranged outpatient setting per PCP due to concerns regarding an acoustic neuroma. We also be concerned regarding possibility of septic emboli. Present on Admission?: Yes (4) Confusion: As noted above. Order MRI brain to further assess vertigo and confusion, with possibility of septic emboli Present on Admission?: Yes (5) Generalized weakness: Part of symptom complex Present on Admission?: Yes (6) Sepsis: Empiric treatment as noted above Present on Admission?: Yes (7) Urinary incontinence: Unclear etiology. We will need assessment for BPH if not already performed. It infection, potential source for endocarditis and/or septic emboli. Present on Admission?: Yes (8) Abnormal LFTs: Follow serial laboratories May be alcohol-related Order acute hepatitis profile If labs are still elevated in the morning, may consider getting ultrasound right upper quadrant Present on Admission?: Yes (9) Hypokalemia: Receiving K riders in the ED x2 Place on NSS + KCl 20 mEq 100 mils per hour Repeat laboratories in a.m. Present on Admission?: Yes (10) Alcohol use: Unclear actual volume of alcohol patient intakes. He is receiving a banana bag from the ED. We will place on thiamine 100 mg p.o. daily, folic acid 1 mg p.o. daily and multivitamin daily Present on Admission?: Yes (11) COVID-19 ruled out by laboratory testing: History of Present Illness Chief Complaint: The patient was brought to the emergency department due to worsening confusion, generalized weakness and body aches over the past 48 hours Primary Care Provider: Sebastian Greene MD The patient is a 59-year-old male with a past medical history including basal cell skin cancer, central positional vertigo, urinary incontinence and osteoarthritis of the right knee. He reports that for approximately 1 month he has had persistent and intermittently worsening symptoms of vertigo. Over the past 48 hours he has experienced worsening confusion, generalized muscle aches and body aches, generalized weakness and fatigue. He denies any recent travels or sick exposures. He reports that alcohol use is twice weekly. He denies any tick bites. He has not had any symptoms prior to the past month. He did see his PCP, who had arranged for an MRI of brain to be done sometime this week. In the emergency department, work-up included abnormal labs: AST 108, troponin 0 0.997, albumin 2.7, pro-Bull 7.15, potassium 3.3, sodium 131. Patient was COVID-[address] of the head without contrast was normal. 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 In the emergency department, patient was given a banana bag, vancomycin 1750 mg IV, Zosyn 4.5 g IV, Tylenol 1 g IV, Toradol 15 mg IV, Lorazepam 1 mg IV and normal saline boluses of 2 L. Allergies Allergy/AdvReac Type Severity Reaction Status Date / Time No Known Allergies Allergy Verified 02/10/20 11:31 Home Medications Home Medications Medication Instructions Recorded Confirmed Type sulfamethoxazole 800 1 tab PO BID 14 Days #28 tab 02/12/20 02/14/20 Rx mg-trimethoprim 160 mg tablet ibuprofen [Advil] 400 mg PO Q6H PRN 02/14/20 02/14/20 History Past Med/Surg History Medical History Asthma Benign essential hypertension Diabetes mellitus Obstructive sleep apnea Surgical History History of vasectomy Family History Father Heart disease Hypertension, Onset Age: 50 Kidney disease, Onset Age: 30 Kidney stones as young man Myocardial infarction Passed in 2005 with heart attack age 78 Brother Asthma Prostate cancer, Onset Age: 61 Treated Radiation and hormonal. 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: No marital status: Current Living Situation: Spouse current occupational status: employed 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 How many Children do You have: 0 How many Children do You have Comment: 1 step child Feels Safe at Home: Yes Childhood Exposure to Second-Hand Smoke: No Seatbelt Use: always Sunscreen Use: Yes Review of Systems Review of Systems: The patient denies chest pain, palpitations, shortness of breath, dyspnea on exertion, cough, lower extremity swelling, sore throat, fevers, chills, sweats, nausea, vomiting, diarrhea , constipation, abdominal pain, pelvic pain, blood in urine or stool, dysuria, urinary frequency or urgency, headache, memory loss, loss of consciousness, rash, abnormal bruising or bleeding, focal weakness, numbness or tingling in arms or legs, neck pain, or night sweats. The review of systems is otherwise negative other than for that already noted above, and at least 10 systems have been reviewed. Physical Exam Physical Exam: The patient is awake, alert and oriented 3, looks unkempt, sutures in left upper frontal forehead area, sitting upright in bed and in no acute distress. HEENT--PERRL, EOMI, mucous membranes and oropharynx dry. Neck--supple. No JVD. No bruits. Thyroid normal, trachea midline, no adenopathy. Heart--normal S1 and S2. No murmurs, rubs or gallops. Lungs--clear bilaterally, no respiratory distress, no accessory muscle use. Abdomen--normal bowel sounds and soft. Nontender. Nondistended. Extremities--no cyanosis or clubbing. Dermatologic--normal skin turgor, normal color, no abnormal lymph nodes, no rash. Neurologic--cranial nerves II through XII grossly intact. Rheumatologic--normal range of motion. Psychiatric--normal affect. Results & Data Results & Data ([facility]) Vital Signs (Past 12 Hours) Vital Signs Temp Pulse Pulse Resp BP BP Pulse Ox 02/14/20 19:34 90 18 98/59 L 97 02/14/20 19:30 89 16 98/59 L 97 02/14/20 19:15 102 H 26 H 121/73 02/14/20 19:00 89 29 H 106/63 02/14/20 18:48 98.1 F 02/14/20 18:30 95 H 25 H 109/63 96 02/14/20 18:23 96 H 10 L 104/61 96 02/14/20 18:18 98 H 96 02/14/20 18:00 87 104/59 L 02/14/20 17:45 109 H 101/51 L 02/14/20 17:34 22 93 02/14/20 17:30 112 H 101/66 02/14/20 17:15 122 H 14 108/58 L 92 02/14/20 17:00 117 H 21 121/72 94 02/14/20 16:50 22 93 02/14/20 16:45 117 H 33 H 119/69 95 02/14/20 16:40 119 H 28 H 114/66 95 02/14/20 16:22 102.9 F H 125 H 18 124/70 97 Laboratory Results Laboratory Results WBC 18.83 K/uL (4.8-10.8) H 02/14/20 16:50 RBC 3.67 M/uL (4.7-6.1) L 02/14/20 16:50 Hgb 11.1 g/dL (14.0-18.0) L 02/14/20 16:50 POC Hgb 11.6 g/dl (14.0-18.0) L 02/14/20 17:06 Hct 34.0 % (42-52) L 02/14/20 16:50 POC Hct 34 % (42-52) L 02/14/20 17:06 MCV 92.6 fL (80-100) 02/14/20 16:50 MCH 30.2 pg (25-34) 02/14/20 16:50 MCHC 32.6 g/dL (32-36) 02/14/20 16:50 RDW Std Deviation 44.1 fL (36.4-46.3) 02/14/20 16:50 RDW Coeff of Arely 13.1 % (11.5-14.5) 02/14/20 16:50 Plt Count 160 K/uL (130-400) 02/14/20 16:50 MPV 10.8 fL (7.4-10.4) H 02/14/20 16:50 Immature Gran % (Auto) 0.3 % 02/14/20 16:50 Neut % (Auto) 89.7 % 02/14/20 16:50 Lymph % (Auto) 5.1 % 02/14/20 16:50 [place] % (Auto) 4.8 % 02/14/20 16:50 Eos % (Auto) 0.0 % 02/14/20 16:50 Baso % (Auto) 0.1 % 02/14/20 16:50 Neut # (Auto) 16.89 K/uL (1.4-6.5) H 02/14/20 16:50 Lymph # (Auto) 0.96 K/uL (1.2-3.4) L 02/14/20 16:50 Acadia # (Auto) 0.91 K/uL (0.11-0.59) H 02/14/20 16:50 Eos # (Auto) 0.00 K/uL (0-0.5) 02/14/20 16:50 Baso # (Auto) 0.01 K/uL (0-0.2) 02/14/20 16:50 Immature Gran # (Auto) 0.06 K/uL (0.00-0.02) H 02/14/20 16:50 PT 13.7 Seconds (9.0-12.0) H 02/14/20 16:50 INR 1.3 (0.9-1.1) H 02/14/20 16:50 APTT 31.1 Seconds (21.0-31.0) H 02/14/20 16:50 PTT Ratio 1.1 02/14/20 16:50 POC Sodium 131 mmol/L (135-144) L 02/14/20 17:06 Sodium 131 mmol/L (136-145) L 02/14/20 16:50 POC Potassium 3.3 mmol/L (3.3-5.0) 02/14/20 17:06 Potassium 3.3 mmol/L (3.5-5.1) L 02/14/20 16:50 POC Chloride 94 mmol/L (101-112) L 02/14/20 17:06 Chloride 97 mmol/L (98-107) L 02/14/20 16:50 Carbon Dioxide 26 mmol/L (21-32) 02/14/20 16:50 POC Total CO2 23 mmol/L (24-31) L 02/14/20 17:06 Anion Gap 8.0 (3-11) 02/14/20 16:50 POC Anion Gap 19.0 mmol/L (16-25) 02/14/20 17:06 POC BUN 16 mg/dl (7-18) 02/14/20 17:06 BUN 16 mg/dl (7-18) 02/14/20 16:50 Creatinine 1.15 mg/dl (0.6-1.4) 02/14/20 16:50 POC Creatinine 0.9 mg/dl (0.6-1.3) 02/14/20 17:06 Est Cr Clr Drug Dosing 73.8 ml/min 02/14/20 16:50 Est GFR ( Amer) 79.7 02/14/20 16:50 Est GFR (Non-Af Amer) 68.8 02/14/20 16:50 BUN/Creatinine Ratio 13.8 (-) 02/14/20 16:50 Glucose 122 mg/dl (70-99) H 02/14/20 16:50 POC Glucose (other) 127 mg/dl (70-99) H 02/14/20 17:06 Lactate 1.1 mmol/L (0.4-2.0) 02/14/20 17:10 Calcium 9.2 mg/dl (8.5-10.1) 02/14/20 16:50 POC Ioniz Calcium Kade 1.12 mmol/l (1.12-1.32) 02/14/20 17:06 Phosphorus 2.8 mg/dl (2.5-4.9) 02/14/20 16:50 Magnesium 1.9 mg/dl (1.8-2.4) 02/14/20 16:50 Total Bilirubin 1.1 mg/dl (0.2-1) H 02/14/20 16:50 Direct Bilirubin 0.4 mg/dl (0-0.2) H 02/14/20 16:50 AST 108 U/L (15-37) H 02/14/20 16:50 ALT 30 U/L (12-78) 02/14/20 16:50 Alkaline Phosphatase 93 U/L (45-117) 02/14/20 16:50 Troponin I 0.997 ng/ml (0-0.045) H* 02/14/20 16:50 Total Protein 6.9 gm/dl (6.4-8.2) 02/14/20 16:50 Albumin 2.7 gm/dl (3.4-5.0) L 02/14/20 16:50 Globulin 4.1 gm/dl (2.5-4.0) H 02/14/20 16:50 Albumin/Globulin Ratio 0.7 (0.9-2) L 02/14/20 16:50 Lipase 236 U/L (73-393) 02/14/20 16:50 Procalcitonin 7.15 ng/ml (0-0.5) H 02/14/20 16:50 TSH 1.350 uIu/ml (0.300-4.500) 02/14/20 16:50 Urine Color Yellow 02/14/20 19:20 Urine Appearance Clear (Clear) 02/14/20 19:20 Urine pH 5.0 (4.5-7.5) 02/14/20 19:20 Ur Specific [place] > 1.045 (1.000-1.030) H 02/14/20 19:20 Urine Protein 1+ (Negative) H 02/14/20 19:20 Urine Glucose (UA) Negative (Negative) 02/14/20 19:20 Urine Ketones Negative (Negative) 02/14/20 19:20 Urine Blood 3+ (Negative) H 02/14/20 19:20 Urine Nitrite Negative (Negative) 02/14/20 19:20 Urine Bilirubin Negative (Negative) 02/14/20 19:20 Urine Urobilinogen Negative (Negative) 02/14/20 19:20 Ur Leukocyte Esterase Negative (Negative) 02/14/20 19:20 Urine WBC (Auto) 1-5 /hpf (0-5) 02/14/20 19:20 Urine RBC (Auto) 0-4 /hpf (0-4) 02/14/20 19:20 U Hyaline Cast (Auto) 1-5 /lpf (0-5) 02/14/20 19:20 U Epithel Cells (Auto) 5-10 /lpf (0-5) H 02/14/20 19:20 Urine Bacteria (Auto) Negative (Negative) 02/14/20 19:20 Urine Yeast Not Reportable 02/14/20 19:20 Ethyl Alcohol mg/dL < 3.0 mg/dl (0-3) 02/14/20 19:22 COVID-19 Eval Order Covid19 Done at [facility] 02/14/20 16:50 COVID-19 PCR NEGATIVE (Negative) 02/14/20 16:50 Diagnostic Findings [facility], [place] [phone] XRay Report Patient: GUSTAVO DODD Date: 02/14/20 MR#: [id number]: [address] [facility] Acct ID:[id number]: [facility]: 1960[facility] Zip[facility] [place] [address] Age: 59Location: ED Sex: MRoom/Bed: Att Phy:Diagnosis: VERTIGO Tameka Phy: Sebastian Greene, MDService Date: 02/14/20 Fam Phy:Interpreting Phy: Nahun Hager MD Admit Phy: Ordering Phy: Zelalem Dos Santos M.D. cc: ~ SINGLE VIEW CHEST CLINICAL HISTORY: Sepsis. FINDINGS: An AP, portable, upright chest radiograph is compared to study dated 04/07/2015. The examination is degraded by portable technique, apical lordotic positioning, and patient rotation. The heart is enlarged noting atherosclerotic calcification of the thoracic aorta. The pulmonary vasculature is noncongested. The lungs and pleural spaces are clear. No pneumothorax is seen. The bony thorax is grossly intact. IMPRESSION: Cardiomegaly with no active disease in the chest. ACT 112: Negative or not required by law. Electronically signed by: Nahun Hager M.D. 02/14/2020 5:37 PM Dictated: 02/14/201735 Transcribed: 02/14/201735 [place], [place] [phone] CT Scan Report Patient: GUSTAVO DODD Date: 02/14/20 MR#: [id number]: [address] Acct ID:[id number]: Date: 1960[place] [facility] [address] Age: 59Location: ED Sex: MRoom/Bed: Att Phy:Diagnosis: VERTIGO Tameka Phy: GreeneSebastian, MDService Date: 02/14/20 [facility] Phy:Interpreting Phy: Nahun Hager MD Admit Phy: Ordering Phy: Zelalem Dos Santos M.D. cc: ~ UNENHANCED CT OF THE BRAIN; CT ANGIOGRAM OF THE BRAIN; CT ANGIOGRAM OF THE NECK CLINICAL HISTORY: Change in mental status. Vertigo. COMPARISON STUDY: No priors. TECHNIQUE: Unenhanced axial CT scan of the brain is performed. Subsequently, following the IV administration of 119 of Optiray 320, CT angiogram of the head and neck was performed from the aortic arch to the vertex. Images are reviewed in the axial, sagittal, and coronal planes. 3-D MIPS images are created and assessed. IV contrast was administered without complication. All measurements were calculated based on NASCET criteria. A dose lowering technique was utilized adhering to the principles of ALARA. CT DOSE: 1215.53 mGy.cm FINDINGS: Brain parenchyma: There is minimal microangiopathic disease. There is no hemorrhage, mass effect, or evidence of acute territorial ischemia by CT criteria. There is no evidence of enhancing mass lesion on the angiogram phase images. The ventricles, sulci, and cisterns are normal in configuration. Qureshi- white matter differentiation is preserved. A chronic lacunar infarct is noted in the right swartz radiata. No extra-axial fluid collection is seen. Thoracic aorta: There is atherosclerotic calcification of the thoracic aorta. Visualized portions of the thoracic aorta are normal in caliber. The aortic arch demonstrates standard 3-vessel anatomy. Right carotid arterial system: The right common carotid artery is widely patent, as are the right internal and external carotid arteries. Calcified plaque is noted in the carotid bulb. Left carotid arterial system: The left common carotid artery is widely patent, as are the left internal and external carotid arteries. Calcified plaque is noted in the carotid bulb. Vertebral arteries: The vertebral arteries are widely patent bilaterally noting a right-sided dominance. Subclavian arteries: Widely patent bilaterally. Intracranial vasculature: There is atherosclerotic calcification of the cavernous carotid arteries. The internal carotid arteries are patent at the skull base, as are the anterior and middle cerebral arteries bilaterally. The vertebrobasilar system and posterior cerebral arteries are widely patent. The right vertebral artery is dominant. 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 No additional aneurysm is identified. There is no high-grade stenosis or focal vessel cut off seen throughout the intracranial circulation. Jugular veins: Patent bilaterally. Dural sinuses: Patent. Lung apices: Partially visualized upper lobe lung parenchyma appears clear. A mildly enlarged right paratracheal lymph node measures 1.8 x 1.0 cm. Soft tissues: The visualized pharyngeal soft tissues are normal in appearance noting angiographic phase technique. The oropharyngeal airway appears widely patent. The salivary and thyroid glands are normal in appearance. No cervical lymphadenopathy is seen. Skeletal structures: The calvarium appears intact. The cervical spine is within normal limits. No lytic or blastic lesion is seen. Orbits: The bony orbits are intact. Orbital contents are normal as imaged. Sinuses and mastoids: The paranasal sinuses are clear. The mastoid air cells are well pneumatized. IMPRESSION: 1. There is no hemorrhage, mass effect, or evidence of acute territorial ischemia by CT criteria. 2. Unremarkable CT angiogram of the neck. 3. 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 4. Otherwise unremarkable CT angiogram of the brain. 5. A pathologically indeterminant and mildly enlarged right paratracheal lymph node is seen in the upper chest. ACT 112: Negative or not required by law. Electronically signed by: Nahun Hager M.D. 02/14/2020 6:33 PM Dictated: 02/14/201819 Transcribed: 02/14/201819 Code Status & VTE Plan Code Status Full code VTE Prophylaxis Plan VTE Prophylaxis will be ordered: Yes PG Care Time/CCT Total # of Minutes Spent Total Time Spent with Patient: Total time spent is greater than 50% in coord ination of care (as documented) at patient's floor/unit and/or counseling patient: Coding Level of Care Code 53604 OBS Care - Level 3 Diagnoses Elevated troponin R77.8 Heart murmur R01.1 Vertigo R42 Confusion R41.0 Generalized weakness R53.1 Sepsis A41.9; R65.20 Sepsis acute organ dysfunction status: with acute organ dysfunction Sepsis type: sepsis due to unspecified organism Severe sepsis acute organ dysfunction type: unspecified Severe sepsis shock status: without septic shock Urinary incontinence R32 Abnormal LFTs R94.5 Hypokalemia E87.6 Alcohol use Z72.89 COVID-19 ruled out by laboratory testing Z03.818 (1) Sepsis Sepsis acute organ dysfunction status: with acute organ dysfunction Sepsis type: sepsis due to unspecified organism Severe sepsis acute organ dysfunction type: unspecified Severe sepsis shock status: without septic shock Qualified Code(s): A41.9 - Sepsis, unspecified organism; R65.20 - Severe sepsis without septic shock
[2020-02-14] MEDS: POTASSIUM CHLORIDE / WTR 10 MEQ/100 ML PLCT IV SCH ×2 (20:45→22:23)
[2020-02-14] MEDS ORDERED: ONDANSETRON INJ 2 MG/ML 2 ML VIAL IV PRN (21:33)
[2020-02-14] MEDS ORDERED: MAGNESIUM HYDROXIDE SUSP 30 ML UDC PO PRN (21:33)
[2020-02-14] MEDS ORDERED: ALUMINUM/MAGNESIUM SUSP 30 ML UDC PO PRN (21:33)
[2020-02-14] MEDS ORDERED: LORazepam 3 MG/6 ML VIAL IV PRN (21:34)
[2020-02-14] MEDS ORDERED: LORazepam 1 MG/2 ML VIAL IV PRN (21:34)
[2020-02-14] MEDS ORDERED: LORazepam 2 MG/4 ML VIAL IV PRN (21:34)
[2020-02-14] MEDS ORDERED: ATIVAN IV ALCOHOL WITHDRAWL IV PRN (21:34)
[2020-02-14] MEDS: ALBUMIN 25% 50 ML IV SCH ×2 (22:01→22:12)
[2020-02-14] MEDS: HEPARIN SOD 5,000 UNIT/0.5 ML VIAL SQ SCH (22:02)
[2020-02-14] MEDS ORDERED: POTASSIUM CHLORIDE / WTR 10 MEQ/100 ML PLCT IV ONE (22:15)
[2020-02-14] MEDS: NSS + 20MEQ KCL 20 MEQ/1,000 ML BAG IV SCH (22:15)
[2020-02-14] MEDS: PIPERACILLIN/TAZOBACTAM 3.375 GM in DEXTROSE 5% 100 ML IV SCH (22:23)
[2020-02-14 22:52] LABS: Hepatitis B Surface Antigen Neg (Neg)
[2020-02-14 23:21] LABS: Hepatitis C IgG 13Yrs+Old_Rflx Neg (Neg)
[2020-02-15] MEDS: ACETAMINOPHEN 325 MG TAB PO PRN (02:58)
[2020-02-15] MEDS ORDERED: VANCOMYCIN HCL 1,250 MG in SODIUM CHLORIDE 0.9% 250 ML IV SCH (04:00)
[2020-02-15] MEDS ORDERED: IBUPROFEN 200 MG TAB PO STA (04:30)
[2020-02-15] MEDS: PIPERACILLIN/TAZOBACTAM 3.375 GM in DEXTROSE 5% 100 ML IV SCH (05:56)
--- NOTE | 2020-02-15 07:06 | CT Scan Report ---
CT SCAN OF THE ABDOMEN AND PELVIS WITHOUT CONTRAST CLINICAL HISTORY: sepsis, urinary urgency COMPARISON STUDY: No previous studies for comparison. TECHNIQUE: CT scan of the abdomen and pelvis was performed from the lung bases to the proximal femurs . Images are reviewed in the axial, sagittal, and coronal planes. IV contrast was not administered fo r this examination. A dose lowering technique was utilized adhering to the principles of ALARA. CT DOSE: 697.19 mGy.cm FINDINGS: Lower chest: There are dependent atelectatic changes. There are coronary artery calcifications. Liver: The liver has a cirrhotic morphology. There is a 1 cm hypodense lesion within the left lobe pe ripherally. There is an 8 mm hypodense lesion within the right lobe. A third 5 mm lesion is also visu alized within the right lobe. Gallbladder: Unremarkable. Spleen: Enlarged measuring 14.5 cm. Pancreas: Unremarkable. Adrenal glands: Unremarkable. Kidneys: There is contrast and excretion secondary to a prior enhanced CT scan. There is a 14 mm righ t renal cyst Bowel: There are no transition zones indicate bowel obstruction. There is no evidence of acute divert iculitis. There is no evidence of acute appendicitis. Peritoneum: There is no intraperitoneal free air or abdominal ascites. Vasculature: The abdominal aorta is normal in course and caliber. Adenopathy: None. Pelvic viscera: The bladder, and pelvic viscera are unremarkable. Skeletal structures: No destructive osseous lesions are seen. IMPRESSION: 1. No evidence of bowel obstruction. No evidence of free air 2. Cirrhotic morphology the liver. Mild splenomegaly. 3. No evidence of acute diverticulitis. No evidence of acute appendicitis. 4. Small hepatic hypodensities, possibly cysts but incompletely characterized on this noncontrast reina dy ACT 112: Negative or not required by law. Electronically signed by: Kole Wolfe M.D. 02/15/2020 7:04 AM
[2020-02-15] MEDS: FOLIC ACID 1 MG TAB PO SCH (08:25)
[2020-02-15] MEDS: ASPIRIN 81 MG ECTAB PO SCH (08:25)
[2020-02-15] MEDS: HEPARIN SOD 5,000 UNIT/0.5 ML VIAL SQ SCH ×2 (08:25→20:32)
[2020-02-15] MEDS: CEROVITE ADV FORMULA TAB PO SCH (08:25)
[2020-02-15] MEDS: THIAMINE HCL 100 MG TAB PO SCH (08:25)
[2020-02-15] MEDS: NSS + 20MEQ KCL 20 MEQ/1,000 ML BAG IV SCH ×2 (08:48→22:40)
[2020-02-15 08:56] LABS: Hematocrit (blood only) 30.2 % (42-52); Immature Granulocytes # (auto) 0.02 K/uL (0.00-0.02); Immature Granulocytes % (auto) 0.2 %; Lymphocytes # (auto) 0.85 K/uL (1.2-3.4); Lymphocytes % (auto) 6.7 %; Mean Corpuscular Hemoglobin 30.6 pg (25-34); Mean Corpuscular Hgb Conc 33.1 g/dL (32-36); Mean Corpuscular Volume 92.4 fL (80-100); Monocytes # (auto) 0.25 K/uL (0.11-0.59); Neutrophils # (auto) 11.54 K/uL (1.4-6.5); Neutrophils % (auto) 91.1 %; Platelet Count 104 K/uL (130-400); RDW Coefficient of Variation 13.2 % (11.5-14.5); RDW Standard Deviation 44.8 fL (36.4-46.3); Red Blood Count 3.27 M/uL (4.7-6.1); White Blood Count 12.66 K/uL (4.8-10.8)
[2020-02-15 09:34] LABS: Albumin Level 2.2 gm/dl (3.4-5.0); BUN Creatinine Ratio 18.3 (10-20); Calcium 8.4 mg/dl (8.5-10.1); Creatinine Clr Calc Pharmacy 85.9 ml/min; Est GFR (African American) 95.5; Est GFR (Non-African American) 82.4; Potassium 3.3 mmol/L (3.5-5.1)
[2020-02-15 09:38] LABS: Albumin Globulin Ratio 0.7 (0.9-2); Bilirubin,Total 1.1 mg/dl (0.2-1); Globulin 3.4 gm/dl (2.5-4.0); Total Protein 5.6 gm/dl (6.4-8.2); Troponin I 0.58 ng/ml (0-0.045)
[2020-02-15] MEDS ORDERED: GADOBUTROL 65ML VIAL IV ONE (11:04)
--- NOTE | 2020-02-15 11:24 | Magnetic Resonance Report ---
MRI OF THE BRAIN WITHOUT AND WITH IV CONTRAST CLINICAL HISTORY: Vertigo, endocarditis concerns for septic emboli. COMPARISON STUDY: Head CT and CTA of the head February 14, 2020. TECHNIQUE: Utilizing a 1.5 Ambreen magnet and dedicated coil, multiplanar, multiecho imaging of the br ain was performed pre and postcontrast administration. IV administration of 8.5 mL of Gadavist contr ast was uneventful. FINDINGS: The diffusion-weighted sequence demonstrates multiple foci of increased signal intensity wi thin the bilateral cerebellar hemispheres, the largest of which is an 8 mm focus within the right cer ebellar hemisphere. This is mildly hyperintense on the diffusion-weighted sequence and slightly hypoi ntense on the ADC map. There is an adjacent 5 mm focus. Note is also made of a 5 mm focus of restrict ed diffusion within the left cerebellar hemisphere that is slightly hypointense on the ADC map. A few small foci of increased signal intensity within the right frontoparietal region are noted on diffusi on-weighted sequence, the largest of which is an 11 x 8 mm periventricular right frontal lobe focus o n axial image 13. This demonstrates mild enhancement on postcontrast images. This focus is slightly h yperintense on the ADC map. A 5 mm periventricular left frontal lobe focus on image 14 is hypointense on the ADC map. There is an additional 3 mm superior left frontal lobe focus of restricted diffusion . There is no mass effect. There is no hemorrhage. Ventricular system is normal. The basilar cisterns are patent. No additional sites of abnormal parenchymal enhancement are present. Calvarial signal is normal. Orbits are unremarkable. Additional white matter T2 hyperintense foci reflect small vessel d isease. IMPRESSION: Multiple small supratentorial and infratentorial infarcts. These are consistent with embo lic infarcts, likely septic given the history. The largest 11 x 8 mm periventricular right frontal lo be infarct demonstrates mild enhancement. These infarcts are acute to subacute and may be of slightly varying ages given the appearance on the ADC map. ACT 112: Negative or not required by law. Electronically signed by: Taz Grant M.D. 02/15/2020 11:23 AM
[2020-02-15] MEDS: NAFCILLIN SODIUM 2,000 MG in DEXTROSE 5% 100 ML IV SCH ×3 (11:52→20:31)
--- NOTE | 2020-02-15 13:33 | XCELERA ---
[id number]
--- NOTE | 2020-02-15 15:10 | Cardiology Consultation ---
Date of Consultation February 15, 2020 Assessment & Plan (1) Endocarditis: IV abx x6 weeks Follow blood cultures and sensitivities No need for TAYLOR as vegetation is visible on atrial side of posterior mitral leaflet on TTE (2) Severe aortic stenosis: Plan for surveillance echo Outpatient cardiology follow up Abx prophylaxis for endocarditis and severely calcified aortic valve Fasting lipid panel tomorrow morning; if w/ hyperlipidemia, plan to start statin (3) Elevated troponin: Troponin peaked at 0.997 Repeat troponin 0.580 This is likely demand ischemia secondary to severe aortic stenosis Supervising Physician Co-Signing Physician Notes Patient seen and examined with Dr. Fuentes. Agree with her assessment and plan. Impression: 1. 2 x 0.8 cm vegetation seen on the atrial side of the posterior mitral leaflet. 2. Severe, asymptomatic aortic stenosis. 3. Severe left ventricle hypertrophy. 4. Mild troponin elevation, demand ischemia. 5. Mild mitral stenosis. Suggest: 1. Agree with long-term IV antibiotics. 2. No need for TAYLOR as vegetation visible on transthoracic echocardiogram. 3. Surveillance echocardiograms. History of Present Illness Attending Physician: Edmond Smyth DO History of Present Illness Wilian Monteiro is a 59 yo male who was admitted to the hospital yesterday evening with elevated troponin and new heart murmur in the setting of acute vertigo x4 weeks. Pt reports that he has had an intentional 100 lb. weight loss over the past 1.5 years. Patient lost this weight by changing his diet (including portion control), walking 3.5 miles per day for exercise, weight lifting a few times per week for additional exercise, and working at [employer] (staying busy on his feet throughout the day). He hit his 100 pound weight loss aaliyah about 5 weeks ago. Interestingly, patient started with an acute episode of vertigo about 4 weeks ago during a shift at [employer]. He describes the vertigo as feeling like the room is rocking and moving around him. These episodes of vertigo have been intermittent over the past 4 weeks but slightly improved and decreased in frequency about 2 weeks ago. Patient also had decreased appetite at onset of vertigo and he reports an additional unintentional 10 pound weight loss. His appetite has slowly returned to baseline over the past 2 weeks. The vertigo is exacerbated with positional changes, most specifically upon standing. He was seen by his PCP for this concern on Saturday (02/10/20, 5 days ago) and an MRI was ordered. During that PCP visit, patient also had excision of basal cell carcinoma from his left frontal scalp. Pt states that he was prescribed Bactrim DS but he admits that he was unable to get this abx from the pharmacy until Saturday (2 days ago) so he did not start taking it until that time. At the end of last week (about 4 days ago), patient had a gradual onset of not feeling well. He states that he overall felt generalized malaise/generalized weakness and Saturday morning (2 days ago), he woke up with chills and his clothes soaked in sweat. Yesterday evening patient presented to the ED due to some confusion, generalized weakness, and body aches. He also reports that he was febrile with Tmax of 102.9 F. He was COVID-negative on testing. Patient was found to have elevated troponin at 0.997 and a new heart murmur. Leukocytosis at 18.83. Hgb and Hct 11.1 and 34.0. Na 131, K 3.3, Cr 1.15. He was started on vancomycin IV and Zosyn IV. Blood cx positive x1 w/ staph aureus. On evaluation today, patient states that he is feeling much better. He does report persistent intermittent dizziness, especially with positional changes and standing. He denies CP, palpitations, tachycardia, LOC, or syncope. He also denies LAKE, changes in vision, abdominal pain, nausea, vomiting, changes in bowel habits, leg pain, or leg swelling. Medical hx: Patient does report a remote history of HTN and hyperlipidemia when [he] weighed 300 pounds. He states that he was previously on an antihypertensive but he discontinued that medication approximately 8 years ago. Patient is not compliant with outpatient follow up and he admits to not seeing his PCP or any physician regularly over the past ~8 years. He is currently not on any medications as an outpatient other than Advil prn for pain and Bactrim s/p the basal cell carcinoma removal from his left frontal scalp. He denies a personal hx of [place]. Family hx: Father at age 78 from fatal [place]; he also had skin cancer. Mom is alive, age 86, and she is doing well. He has 3 brothers, one of whom has prostate cancer and another one with skin cancer. Social hx: Alcohol use previously -- drinking a couple beers a few times a week but denies alcohol use in the past 4 weeks since onset of vertigo. Never smoker. No other drug use. Allergies Allergy/AdvReac Type Severity Reaction Status Date / Time No Known Allergies Allergy Verified 02/10/20 11:31 Home Medications Home Medications Medication Instructions Recorded Confirmed Type sulfamethoxazole 800 1 tab PO BID 14 Days #28 tab 02/12/20 02/14/20 Rx mg-trimethoprim 160 mg tablet ibuprofen [Advil] 400 mg PO Q6H PRN 02/14/20 02/14/20 History Patient History Medical History (Updated 02/15/20 @ 15:34 by Lizette Fuentes DO) Asthma Benign essential hypertension Diabetes mellitus Endocarditis Obstructive sleep apnea Severe aortic stenosis Surgical History History of vasectomy Family History Father Heart disease Hypertension, Onset Age: 50 Kidney disease, Onset Age: 30 Kidney stones as young man Myocardial infarction Passed in 2005 with heart attack age 78 Brother Asthma Prostate cancer, Onset Age: 61 Treated Radiation and hormonal. Cancer younger brother, skin cancer Mother Cancer Skin cancer Brother Cancer skin cancer Denies family history of Ovarian cancer Diabetes Breast cancer Lung cancer Colorectal cancer Stroke Social History Smoking Status: Never smoker Second Hand Exposure: No; Do You Dip or Chew Tobacco: No; Hx Alcohol Use: Yes Alcohol type: beer Alcohol Intake Frequency: 2-4 x/Month Hx Substance Use: No Preferred Language: [place] Communication Ability: Effective Communication Ability Comment: [facility] Hearing Ability: Hard of Hearing Legal Nurse Consultant Required: No Beliefs That Will Affect Care: None marital status: Current Living Situation: Spouse current occupational status: employed 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 How many Children do You have: 0 How many Children do You have Comment: 1 step child Other Information That Helps Us Care for You: No Feels Safe at Home: Yes Safety Concerns: Feels Safe At This Time Childhood Exposure to Second-Hand Smoke: No Seatbelt Use: always Sunscreen Use: Yes Assistive Devices: None Review of Systems Constitutional: + fever, + chills, + body aches, + fatigue and + weakness Eyes: no worsening vision and no problem reported Ear, Nose, Mouth, Throat: + dizziness; no sore throat Respiratory: no cough and no dyspnea Cardiovascular: no chest pain, no palpitations, no lightheadedness, no syncope and no edema Gastrointestinal: no abdominal pain, no nausea, no vomiting and no diarrhea/loose stools Musculoskeletal: no swelling Neurologic: + dizziness; no headache(s) Physical Exam Physical Exam: GENERAL: Appears well. No acute distress. Well developed and well nourished. Vital signs reviewed. EYES: EOMI. Anicteric sclerae. HENT: Moist mucous membranes. RESPIRATORY: Clear to auscultation bilaterally. No wheezing, rales, or rhonchi. CARDIOVASCULAR: Regular rate and rhythm. 3/6 crescendo decrescendo systolic murmur; S2 is not heard at the apex. No edema. ABDOMEN: Soft, non-tender and non-distended. No palpable masses. Normal bowel sounds. EXTREMITIES: No edema. Non-tender. SKIN: Warm, dry. On left frontal scalp, there is an ~2cm incision with sutures in place that is well-healing w/ minimal surrounding erythema, no discharge or bleeding from healing incision. NEUROLOGIC: A/Ox3. Normal speech. No facial droop. No focal deficits. PSYCHIATRIC: Cooperative. Appropriate mood and affect. Results & Data ([facility]) Vital Signs (Past 12 Hours) Vital Signs Temp Pulse Resp BP Pulse Ox 02/15/20 12:26 36.6 C 86 19 95/58 L 96 02/15/20 07:58 36.3 C L 91 H 20 98/56 L 95 02/15/20 06:12 38 C H 02/15/20 04:29 39.4 C H 129 H 20 94/55 L 95 PG Care Time/CCT Total # of Minutes Spent Total Time Spent with Patient: Total time spent is greater than 50% in coordination of care (as documented) at patient's floor/unit and/or counseling patient: Coding Level of Care Code 00356 Inpt Consult Level 4 Diagnoses Endocarditis I38 Severe aortic stenosis I35.0 Elevated troponin R77.8
--- NOTE | 2020-02-15 15:45 | Electrocardiogram Report ---
Test Reason : Blood Pressure : / mmHG Vent. Rate : 118 BPM Atrial Rate : 118 BPM P-R Int : 144 ms QRS Dur : 096 ms QT Int : 396 ms P-R-T Axes : 006 024 095 degrees QTc Int : 555 ms Sinus tachycardia Nonspecific ST and T wave abnormality Minimal voltage criteria for LVH, may be normal variant Prolonged QT Abnormal ECG No previous ECGs available Confirmed by Gallito De La Rosa ([id number]) on 02/15/2020 3:44:49 PM Referred By: REFERRED SELF Confirmed By:Gallito De La Rosa
--- NOTE | 2020-02-15 16:06 | Electrocardiogram Report ---
Test Reason : Blood Pressure : / mmHG Vent. Rate : 098 BPM Atrial Rate : 098 BPM P-R Int : 166 ms QRS Dur : 102 ms QT Int : 390 ms P-R-T Axes : 062 015 118 degrees QTc Int : 497 ms Normal sinus rhythm Minimal voltage criteria for LVH, may be normal variant Prolonged QT Abnormal ECG When compared with ECG of 14-FEB-2020 16:48, (unconfirmed) T wave inversion more evident in Lateral leads Confirmed by Gallito De La Rosa ([id number]) on 02/15/2020 4:05:45 PM Referred By: REFERRED SELF Confirmed By:Gallito De La Rosa
--- NOTE | 2020-02-15 17:00 | Hospitalist Progress Note ---
Date of Service February 15, 2020 Assessment & Plan (1) Endocarditis: diagnosis based on MSSA positive blood cultures and vegetation on posterior mitral valve continue Nafcillin IV MRI brain with numerous septic emboli which would explain vertigo, confusion, fevers over past few weeks repeat blood cultures tomorrow consult ID for recommendations, anticipating 6 weeks of IV antibiotics could be difficult because patient does not have insurance (2) Elevated troponin: The patient will be admitted to telemetry for serial cardiac enzymes, serial EKG's, cardiac rhythm monitoring and a 2-D echocardiogram with Dopplers. Troponin upon admission 0.99, trending down no concern for ischemia at this time, he has endocarditis (3) Heart murmur: loudest at apex has mitral regurgitation from vegetation but also has that is severe (4) Vertigo: MRI brain had been arranged outpatient setting per PCP due to concerns regarding an acoustic neuroma. MRI brain today 02/14 shows numerous septic emboli (5) Confusion: As noted above. related to septic emboli (6) Generalized weakness: Part of symptom complex (7) Sepsis: Empiric treatment as noted above continue Nafcillin no signs of sepsis at this time (8) Urinary incontinence: Unclear etiology. We will need assessment for BPH if not already performed. It infection, potential source for endocarditis and/or septic emboli. (9) Abnormal LFTs: Follow serial laboratories May be alcohol-related Order acute hepatitis profile (10) Hypokalemia: Receiving K riders in the ED x2 Place on NSS + KCl 20 mEq 100 mils per hour Repeat laboratories in a.m. K is stable today (11) Alcohol use: Unclear actual volume of alcohol patient intakes. He is receiving a banana bag from the ED. We will place on thiamine 100 mg p.o. daily, folic acid 1 mg p.o. daily and multivitamin daily (12) COVID-19 ruled out by laboratory testing: (13) Severe aortic stenosis: Admission and Anticipated Discharge Date Admission Date: February 14, 2020 Subjective patient says he is feeling better in general since starting antibiotics had a fever, sweats this morning reviewed labs, WBC going down blood cultures positive for MSSA discussed with Dr. De La Rosa, he notes a vegetation on posterior mitral valve leaflet MRI brain with numerous septic emboli he says he has an appetite today no new neurological symptoms discussed with CM, patient does not have insurance, will make home IV antibiotics difficult/expensive Review of Systems Review of Systems: All systems reviewed & are unremarkable except as noted in Subjective Constitutional: + fever, + chills, + sweats and + weakness; no fatigue Respiratory: no cough and no dyspnea Cardiovascular: no chest pain, no syncope and no edema Gastrointestinal: + early satiety; no abdominal pain, no nausea, no vomiting, no constipation and no diarrhea/loose stools Physical Exam Constitutional: WD/WN, vitals as above Neck: trachea midline, no thyromegaly Respiratory: normal respiratory effort, lungs clear to auscultation Cardiovascular: Rate/Rhythm: regular rate and regular rhythm Heart Sounds: normal S1, normal S2 and + murmur (systolic, louder at apex) Vessels: no JVD Extremities: normal capillary refill; no edema Gastrointestinal (Abdomen): normal bowel sounds, soft, nontender, no hepatosplenomegaly Musculoskeletal: no cyanosis or clubbing, extremities motor strength 5/5 Skin: no rashes, warm and dry Neurologic: patellar DTR's 2+ bilat, sensation intact and PERRL, EOMI, accommodation nl, no face palsy, no dysarthria Psychiatric: A+Ox3, euthymic affect Lymphatic: no cervical or axillary lymphadenopathy Results & Data Results & Data ([facility]) Vital Signs (Past 12 Hours) Vital Signs Temp Pulse Resp BP Pulse Ox 02/15/20 15:17 36.7 C 94 H 21 95/61 L 97 02/15/20 12:26 36.6 C 86 19 95/58 L 96 02/15/20 07:58 36.3 C L 91 H 20 98/56 L 95 02/15/20 06:12 38 C H Laboratory Results Laboratory Results - last 24 hr 02/14/20 02/14/20 02/14/20 16:50 16:50 16:50 WBC 18.83 H RBC 3.67 L Hgb 11.1 L POC Hgb Hct 34.0 L POC Hct MCV 92.6 MCH 30.2 MCHC 32.6 RDW Std Deviation 44.1 RDW Coeff of Arely 13.1 Plt Count 160 MPV 10.8 H Immature Gran % (Auto) 0.3 Neut % (Auto) 89.7 Lymph % (Auto) 5.1 Norton % (Auto) 4.8 Eos % (Auto) 0.0 Baso % (Auto) 0.1 Neut # (Auto) 16.89 H Lymph # (Auto) 0.96 L Norton # (Auto) 0.91 H Eos # (Auto) 0.00 Baso # (Auto) 0.01 Immature Gran # (Auto) 0.06 H PT 13.7 H INR 1.3 H APTT 31.1 H PTT Ratio 1.1 POC Sodium Sodium 131 L POC Potassium Potassium 3.3 L POC Chloride Chloride 97 L Carbon Dioxide 26 POC Total CO2 Anion Gap 8.0 POC Anion Gap POC BUN BUN 16 Creatinine 1.15 POC Creatinine Est Cr Clr Drug Dosing 73.8 Est GFR ( Amer) 79.7 Est GFR (Non-Af Amer) 68.8 BUN/Creatinine Ratio 13.8 Glucose 122 H POC Glucose (other) Lactate Calcium 9.2 POC Ioniz Calcium Kade Phosphorus 2.8 Magnesium 1.9 Total Bilirubin 1.1 H Direct Bilirubin 0.4 H AST 108 H ALT 30 Alkaline Phosphatase 93 Troponin I 0.997 H* Total Protein 6.9 Albumin 2.7 L Globulin 4.1 H Albumin/Globulin Ratio 0.7 L Lipase 236 Folate Procalcitonin TSH 1.350 Urine Color Urine Appearance Urine pH Ur Specific Icard Urine Protein Urine Glucose (UA) Urine Ketones Urine Blood Urine Nitrite Urine Bilirubin Urine Urobilinogen Ur Leukocyte Esterase Urine WBC (Auto) Urine RBC (Auto) U Hyaline Cast (Auto) U Epithel Cells (Auto) Urine Bacteria (Auto) Urine Yeast Ethyl Alcohol mg/dL COVID-19 Eval Order COVID-19 PCR Hepatitis A IgM Ab Hep Bs Antigen Hep B Core IgM Ab Hepatitis C Antibody Bld Cult Staph aureus PCR Blood Culture MRSA PCR 02/14/20 02/14/20 02/14/20 16:50 16:50 16:50 WBC RBC Hgb POC Hgb Hct POC Hct MCV MCH MCHC RDW Std Deviation RDW Coeff of Arely Plt Count MPV Immature Gran % (Auto) Neut % (Auto) Lymph % (Auto) Norton % (Auto) Eos % (Auto) Baso % (Auto) Neut # (Auto) Lymph # (Auto) Norton # (Auto) Eos # (Auto) Baso # (Auto) Immature Gran # (Auto) PT INR APTT PTT Ratio POC Sodium Sodium POC Potassium Potassium POC Chloride Chloride Carbon Dioxide POC Total CO2 Anion Gap POC Anion Gap POC BUN BUN Creatinine POC Creatinine Est Cr Clr Drug Dosing Est GFR ( Amer) Est GFR (Non-Af Amer) BUN/Creatinine Ratio Glucose POC Glucose (other) Lactate Calcium POC Ioniz Calcium Kade Phosphorus Magnesium Total Bilirubin Direct Bilirubin AST ALT Alkaline Phosphatase Troponin I Total Protein Albumin Globulin Albumin/Globulin Ratio Lipase Folate Procalcitonin 7.15 H TSH Urine Color Urine Appearance Urine pH Ur Specific Icard Urine Protein Urine Glucose (UA) Urine Ketones Urine Blood Urine Nitrite Urine Bilirubin Urine Urobilinogen Ur Leukocyte Esterase Urine WBC (Auto) Urine RBC (Auto) U Hyaline Cast (Auto) U Epithel Cells (Auto) Urine Bacteria (Auto) Urine Yeast Ethyl Alcohol mg/dL COVID-19 Eval Order Covid19 Done at [facility] COVID-19 PCR NEGATIVE Hepatitis A IgM Ab Hep Bs Antigen Hep B Core IgM Ab Hepatitis C Antibody Bld Cult Staph aureus PCR Blood Culture MRSA PCR 02/14/20 02/14/20 02/14/20 16:50 17:06 17:10 WBC RBC Hgb POC Hgb 11.6 L Hct POC Hct 34 L MCV MCH MCHC RDW Std Deviation RDW Coeff of Arely Plt Count MPV Immature Gran % (Auto) Neut % (Auto) Lymph % (Auto) Norton % (Auto) Eos % (Auto) Baso % (Auto) Neut # (Auto) Lymph # (Auto) Norton # (Auto) Eos # (Auto) Baso # (Auto) Immature Gran # (Auto) PT INR APTT PTT Ratio POC Sodium 131 L Sodium POC Potassium 3.3 Potassium POC Chloride 94 L Chloride Carbon Dioxide POC Total CO2 23 L Anion Gap POC Anion Gap 19.0 POC BUN 16 BUN Creatinine POC Creatinine 0.9 Est Cr Clr Drug Dosing Est GFR ( Amer) Est GFR (Non-Af Amer) BUN/Creatinine Ratio Glucose POC Glucose (other) 127 H Lactate 1.1 Calcium POC Ioniz Calcium Kade 1.12 Phosphorus Magnesium Total Bilirubin Direct Bilirubin AST ALT Alkaline Phosphatase Troponin I Total Protein Albumin Globulin Albumin/Globulin Ratio Lipase Folate Procalcitonin TSH Urine Color Urine Appearance Urine pH Ur Specific Icard Urine Protein Urine Glucose (UA) Urine Ketones Urine Blood Urine Nitrite Urine Bilirubin Urine Urobilinogen Ur Leukocyte Esterase Urine WBC (Auto) Urine RBC (Auto) U Hyaline Cast (Auto) U Epithel Cells (Auto) Urine Bacteria (Auto) Urine Yeast Ethyl Alcohol mg/dL COVID-19 Eval Order COVID-19 PCR Hepatitis A IgM Ab Hep Bs Antigen Hep B Core IgM Ab Hepatitis C Antibody Bld Cult Staph aureus PCR Positive A Blood Culture MRSA PCR Negative 02/14/20 02/14/20 02/14/20 19:20 19:22 21:48 WBC RBC Hgb POC Hgb Hct POC Hct MCV MCH MCHC RDW Std Deviation RDW Coeff of Arely Plt Count MPV Immature Gran % (Auto) Neut % (Auto) Lymph % (Auto) Norton % (Auto) Eos % (Auto) Baso % (Auto) Neut # (Auto) Lymph # (Auto) Norton # (Auto) Eos # (Auto) Baso # (Auto) Immature Gran # (Auto) PT INR APTT PTT Ratio POC Sodium Sodium POC Potassium Potassium POC Chloride Chloride Carbon Dioxide POC Total CO2 Anion Gap POC Anion Gap POC BUN BUN Creatinine POC Creatinine Est Cr Clr Drug Dosing Est GFR ( Amer) Est GFR (Non-Af Amer) BUN/Creatinine Ratio Glucose POC Glucose (other) Lactate Calcium POC Ioniz Calcium Kade Phosphorus Magnesium Total Bilirubin Direct Bilirubin AST ALT Alkaline Phosphatase Troponin I Total Protein Albumin Globulin Albumin/Globulin Ratio Lipase Folate 15.10 Procalcitonin TSH Urine Color Yellow Urine Appearance Clear Urine pH 5.0 Ur Specific Icard > 1.045 H Urine Protein 1+ H Urine Glucose (UA) Negative Urine Ketones Negative Urine Blood 3+ H Urine Nitrite Negative Urine Bilirubin Negative Urine Urobilinogen Negative Ur Leukocyte Esterase Negative Urine WBC (Auto) 1-5 Urine RBC (Auto) 0-4 U Hyaline Cast (Auto) 1-5 U Epithel Cells (Auto) 5-10 H Urine Bacteria (Auto) Negative Urine Yeast Not Reportable Ethyl Alcohol mg/dL < 3.0 COVID-19 Eval Order COVID-19 PCR Hepatitis A IgM Ab Hep Bs Antigen Hep B Core IgM Ab Hepatitis C Antibody Bld Cult Staph aureus PCR Blood Culture MRSA PCR 02/14/20 02/14/20 02/15/20 21:48 21:48 08:32 WBC 12.66 H RBC 3.27 L Hgb 10.0 L POC Hgb Hct 30.2 L POC Hct MCV 92.4 MCH 30.6 MCHC 33.1 RDW Std Deviation 44.8 RDW Coeff of Arely 13.2 Plt Count 104 L MPV 11.0 H Immature Gran % (Auto) 0.2 Neut % (Auto) 91.1 Lymph % (Auto) 6.7 Norton % (Auto) 2.0 Eos % (Auto) 0.0 Baso % (Auto) 0.0 Neut # (Auto) 11.54 H Lymph # (Auto) 0.85 L Norton # (Auto) 0.25 Eos # (Auto) 0.00 Baso # (Auto) 0.00 Immature Gran # (Auto) 0.02 PT INR APTT PTT Ratio POC Sodium Sodium POC Potassium Potassium POC Chloride Chloride Carbon Dioxide POC Total CO2 Anion Gap POC Anion Gap POC BUN BUN Creatinine POC Creatinine Est Cr Clr Drug Dosing Est GFR ( Amer) Est GFR (Non-Af Amer) BUN/Creatinine Ratio Glucose POC Glucose (other) Lactate Calcium POC Ioniz Calcium Kade Phosphorus Magnesium Total Bilirubin Direct Bilirubin AST ALT Alkaline Phosphatase Troponin I Total Protein Albumin Globulin Albumin/Globulin Ratio Lipase Folate Procalcitonin TSH Urine Color Urine Appearance Urine pH Ur Specific Icard Urine Protein Urine Glucose (UA) Urine Ketones Urine Blood Urine Nitrite Urine Bilirubin Urine Urobilinogen Ur Leukocyte Esterase Urine WBC (Auto) Urine RBC (Auto) U Hyaline Cast (Auto) U Epithel Cells (Auto) Urine Bacteria (Auto) Urine Yeast Ethyl Alcohol mg/dL COVID-19 Eval Order COVID-19 PCR Hepatitis A IgM Ab Pending Hep Bs Antigen Neg Hep B Core IgM Ab Pending Hepatitis C Antibody Neg Bld Cult Staph aureus PCR Blood Culture MRSA PCR 02/15/20 08:32 WBC RBC Hgb POC Hgb Hct POC Hct MCV MCH MCHC RDW Std Deviation RDW Coeff of Arely Plt Count MPV Immature Gran % (Auto) Neut % (Auto) Lymph % (Auto) Norton % (Auto) Eos % (Auto) Baso % (Auto) Neut # (Auto) Lymph # (Auto) Norton # (Auto) Eos # (Auto) Baso # (Auto) Immature Gran # (Auto) PT INR APTT PTT Ratio POC Sodium Sodium 139 D POC Potassium Potassium 3.3 L POC Chloride Chloride 106 Carbon Dioxide 25 POC Total CO2 Anion Gap 8.0 POC Anion Gap POC BUN BUN 18 Creatinine 0.99 POC Creatinine Est Cr Clr Drug Dosing 85.9 Est GFR ( Amer) 95.5 Est GFR (Non-Af Amer) 82.4 BUN/Creatinine Ratio 18.3 Glucose 127 H POC Glucose (other) Lactate Calcium 8.4 L POC Ioniz Calcium Kade Phosphorus Magnesium Total Bilirubin 1.1 H Direct Bilirubin AST 80 H ALT 28 Alkaline Phosphatase 68 Troponin I 0.580 H* Total Protein 5.6 L Albumin 2.2 L Globulin 3.4 Albumin/Globulin Ratio 0.7 L Lipase Folate Procalcitonin TSH Urine Color Urine Appearance Urine pH Ur Specific Icard Urine Protein Urine Glucose (UA) Urine Ketones Urine Blood Urine Nitrite Urine Bilirubin Urine Urobilinogen Ur Leukocyte Esterase Urine WBC (Auto) Urine RBC (Auto) U Hyaline Cast (Auto) U Epithel Cells (Auto) Urine Bacteria (Auto) Urine Yeast Ethyl Alcohol mg/dL COVID-19 Eval Order COVID-19 PCR Hepatitis A IgM Ab Hep Bs Antigen Hep B Core IgM Ab Hepatitis C Antibody Bld Cult Staph aureus PCR Blood Culture MRSA PCR Microbiology 02/14/20 17:10 Blood Aerobic Blood Culture - Preliminary No growth in Aerobic bottle after 24 hours. 02/14/20 17:10 Blood Anaerobic Blood Culture - Preliminary Gram positive cocci in chains 02/14/20 19:20 Urine,Clean Catch Urine Culture - Preliminary No growth - Less than 1,000 colonies/mL, Final report to follow. 02/14/20 16:50 Blood Aerobic Blood Culture - Preliminary Gram positive cocci clusters 02/14/20 16:50 Blood Anaerobic Blood Culture - Preliminary Gram positive cocci clusters Medications Administered Current Inpatient Medications Acetaminophen (Acetaminophen 325 Mg Tab) 650 mg PO Q4H PRN PRN Reason: Pain or Fever Stop: 03/15/20 21:32 Last Admin: 02/15/20 02:58 Dose: 650 mg Documented by: Al Hydrox/Mg Hydrox/Simethicone (Aluminum/Magnesium Susp 30 Ml Udc) 15 ml PO Q4H PRN PRN Reason: Dyspepsia Stop: 03/15/20 21:32 Aspirin (Aspirin 81 Mg Ectab) [facility] [place] Stop: 03/16/20 08:59 Last Admin: 02/15/20 08:25 Dose: 81 mg Documented by: Folic Acid (Folic Acid 1 Mg Tab) 1 mg PO QAM [facility] Stop: 03/16/20 08:59 Last Admin: 02/15/20 08:25 Dose: 1 mg Documented by: Heparin Sodium (Porcine) (Heparin Sod 5,000 Unit/0.5 Ml Vial) 5,000 units SQ Q12 [facility] Stop: 03/15/20 21:59 Last Admin: 02/15/20 08:25 Dose: 5,000 units Documented by: Potassium Chloride/Sodium Chloride (Normal Saline W/20 Meq Kcl) 20 meq in 1,000 mls @ 100 mls/hr IV .Q10H PIPER Stop: 03/15/20 21:59 Last Admin: 02/15/20 08:48 Dose: 100 mls/hr Documented by: Lorazepam (Ativan) 1 mg in 2 mls @ 2 mls/min IV UD PRN; Protocol PRN Reason: EtOH Withdrawl AWSS Score 6,7 Stop: 03/15/20 21:33 Lorazepam (Ativan) 2 mg in 4 mls @ 4 mls/min IV UD PRN; Protocol PRN Reason: EtOH Withdrawl AWSS Score 8,9 Stop: 03/15/20 21:33 Lorazepam (Ativan) 3 mg in 6 mls @ 4 mls/min IV ONCE PRN; Protocol PRN Reason: EtOH Withdrawl AWSS Score >=10 Stop: 03/15/20 21:33 Nafcillin Sodium 2,000 mg/ (Dextrose) 100 mls @ 100 mls/hr IV Q4H PIPER; Protocol Stop: 02/29/20 11:59 Last Infusion: 02/15/20 16:45 Dose: Infused Documented by: Magnesium Hydroxide (Magnesium Hydroxide Susp 30 Ml Udc) 30 ml PO Q12H PRN PRN Reason: Constipation Stop: 03/15/20 21:32 Multivitamins/Minerals (Cerovite Adv Formula Tab) 1 tab PO QAM [facility] Stop: 03/16/20 08:59 Last Admin: 02/15/20 08:25 Dose: 1 tab Documented by: Ondansetron HCl (Ondansetron Inj 2 Mg/Ml 2 Ml Vial) 4 mg IV Q6H PRN PRN Reason: Nausea Stop: 03/15/20 21:32 Thiamine HCl (Thiamine Hcl 100 Mg Tab) 100 mg PO QAM [facility] Stop: 03/16/20 08:59 Last Admin: 02/15/20 08:25 Dose: 100 mg Documented by: PG Care Time/CCT Total # of Minutes Spent Total Time Spent: 37 Total Time Spent with Patient: Total time spent is greater than 50% in coordination of care (as documented) at patient's floor/unit and/or counseling patient: Coding Level of Care Code 57768 Subseq Hosp Care Lvl 3 Diagnoses Endocarditis I38 Elevated troponin R77.8 Heart murmur R01.1 Vertigo R42 Confusion R41.0 Generalized weakness R53.1 Sepsis A41.9; R65.20 Sepsis acute organ dysfunction status: with acute organ dysfunction Sepsis type: sepsis due to unspecified organism Severe sepsis acute organ dysfunction type: unspecified Severe sepsis shock status: without septic shock Urinary incontinence R32 Abnormal LFTs R94.5 Hypokalemia E87.6 Alcohol use Z72.89 COVID-19 ruled out by laboratory testing Z03.818 Severe aortic stenosis I35.0 (1) Sepsis Sepsis acute organ dysfunction status: with acute organ dysfunction Sepsis type: sepsis due to unspecified organism Severe sepsis acute organ dysfunction type: unspecified Severe sepsis shock status: without septic shock Qualified Code(s): A41.9 - Sepsis, unspecified organism; R65.20 - Severe sepsis without septic shock
[2020-02-16] MEDS: NAFCILLIN SODIUM 2,000 MG in DEXTROSE 5% 100 ML IV SCH ×6 (00:20→19:41)
[2020-02-16] MEDS: ACETAMINOPHEN 325 MG TAB PO PRN ×3 (01:16→19:41)
[2020-02-16 02:52] LABS: Hepatitis A Antibody IgM NON-REACTIVE (NON-REACTIVE); Hepatitis B Core Antibody IgM NON-REACTIVE (NON-REACTIVE)
[2020-02-16 07:27] LABS: Chol HDL Ratio 5; Cholesterol 81 mg/dl (0-200); HDL Cholesterol 16 mg/dl; LDL Cholesterol Calculated 43 mg/dl; Triglycerides 111 mg/dl (0-150); VLDL Cholesterol 22 mg/dl
[2020-02-16] MEDS: NSS + 20MEQ KCL 20 MEQ/1,000 ML BAG IV SCH ×2 (08:08→19:41)
[2020-02-16] MEDS: THIAMINE HCL 100 MG TAB PO SCH (08:11)
[2020-02-16] MEDS: FOLIC ACID 1 MG TAB PO SCH (08:11)
[2020-02-16] MEDS: ASPIRIN 81 MG ECTAB PO SCH (08:11)
[2020-02-16] MEDS: HEPARIN SOD 5,000 UNIT/0.5 ML VIAL SQ SCH ×2 (08:11→19:41)
[2020-02-16] MEDS: CEROVITE ADV FORMULA TAB PO SCH (08:11)
[2020-02-16 08:13] LABS: Hematocrit (blood only) 29.8 % (42-52); Hemoglobin 9.8 g/dL (14.0-18.0); Mean Corpuscular Hemoglobin 30.7 pg (25-34); Mean Corpuscular Hgb Conc 32.9 g/dL (32-36); Mean Corpuscular Volume 93.4 fL (80-100); RDW Coefficient of Variation 13.2 % (11.5-14.5); RDW Standard Deviation 45.1 fL (36.4-46.3); Red Blood Count 3.19 M/uL (4.7-6.1); White Blood Count 9.14 K/uL (4.8-10.8)
[2020-02-16 08:19] LABS: BUN Creatinine Ratio 18.6 (10-20); Calcium 8.2 mg/dl (8.5-10.1); Creatinine Clr Calc Pharmacy 107.8 ml/min; Est GFR (African American) 113.1; Est GFR (Non-African American) 97.6; Potassium 3.4 mmol/L (3.5-5.1)
[2020-02-16 08:32] LABS: Mean Platelet Volume 11.1 fL (7.4-10.4); Platelet Count 99 K/uL (130-400)
[2020-02-16 08:33] LABS: Echinocytes 1+; Eosinophils # (auto) 0.03 K/uL (0-0.5); Eosinophils % (auto) 0.3 %; Giant Platelets 1+; Immature Granulocytes # (auto) 0.03 K/uL (0.00-0.02); Immature Granulocytes % (auto) 0.3 %; Lymphocytes # (auto) 0.57 K/uL (1.2-3.4); Lymphocytes % (auto) 6.2 %; Monocytes # (auto) 0.56 K/uL (0.11-0.59); Monocytes % (auto) 6.1 %; Neutrophils # (auto) 7.95 K/uL (1.4-6.5); Neutrophils % (auto) 87.1 %; Platelet Estimate Decreased (Normal)
--- NOTE | 2020-02-16 10:28 | Cardiology Consultation ---
Date of Consultation February 16, 2020 Assessment & Plan (1) Endocarditis: IV abx x6 weeks per medicine team. No need for TAYLOR as vegetation is visible on atrial side of posterior mitral leaflet on TTE (2) Severe aortic stenosis: Plan for surveillance echo Outpatient cardiology follow up Abx for endocarditis and severely calcified aortic valve Fasting lipid profile without hyperlipidemia; no evidence to start statin at this time. (3) Elevated troponin: Troponin peaked at 0.997, repeat troponin 0.580 at 0832 on 02/15/20. This is likely demand ischemia secondary to severe aortic stenosis History of Present Illness Attending Physician: Edmond Smyth DO History of Present Illness Patient seen and evaluated at bedside this morning. Currently being treated for endocarditis with Nafcillin IV. He reports worsening generalized weakness and fatigue. He has a good appetite and is eating well without nausea or vomiting. Patient has no new complaints or concerns today. He denies CP, SOB, lightheadedness, dizziness, tachycardia, palpitations, or edema. Allergies Allergy/AdvReac Type Severity Reaction Status Date / Time No Known Allergies Allergy Verified 02/10/20 11:31 Home Medications Home Medications Medication Instructions Recorded Confirmed Type sulfamethoxazole 800 1 tab PO BID 14 Days #28 tab 02/12/20 02/14/20 Rx mg-trimethoprim 160 mg tablet ibuprofen [Advil] 400 mg PO Q6H PRN 02/14/20 02/14/20 History Patient History Medical History (Updated 02/15/20 @ 15:34 by Lizette Fuentes DO) Asthma Benign essential hypertension Diabetes mellitus Endocarditis Obstructive sleep apnea Severe aortic stenosis Surgical History History of vasectomy Family History Father Heart disease Hypertension, Onset Age: 50 Kidney disease, Onset Age: 30 Kidney stones as young man Myocardial infarction Passed in 2006 with heart attack age 78 Brother Asthma Prostate cancer, Onset Age: 61 Treated Radiation and hormonal. Cancer younger brother, skin cancer Mother Cancer Skin cancer Brother Cancer skin cancer Denies family history of Ovarian cancer Diabetes Breast cancer Lung cancer Colorectal cancer Stroke Social History Smoking Status: Never smoker Second Hand Exposure: No; Do You Dip or Chew Tobacco: No; Hx Alcohol Use: Yes Alcohol type: beer Alcohol Intake Frequency: 2-4 x/Month Hx Substance Use: No Preferred Language: Yi Communication Ability: Effective Communication Ability Comment: [place] Hearing Ability: Hard of Hearing Solderer Required: No Beliefs That Will Affect Care: None marital status: Current Living Situation: Spouse current occupational status: employed 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 How many Children do You have: 0 How many Children do You have Comment: 1 step child Other Information That Helps Us Care for You: No Feels Safe at Home: Yes Safety Concerns: Feels Safe At This Time Childhood Exposure to Second-Hand Smoke: No Seatbelt Use: always Sunscreen Use: Yes Assistive Devices: Walker Review of Systems Constitutional: + body aches, + fatigue and + weakness; no fever and no chills Ear, Nose, Mouth, Throat: no dizziness Respiratory: no cough and no dyspnea Cardiovascular: no chest pain, no dyspnea, no palpitations, no lightheadedness, no syncope, no edema and no calf pain Gastrointestinal: no abdominal pain, no nausea and no vomiting Musculoskeletal: no swelling Neurologic: no dizziness and no headache(s) Physical Exam Physical Exam: GENERAL: Appears well but tired. No acute distress. Vital signs reviewed. EYES: EOMI. Anicteric sclerae. HENT: Moist mucous membranes. RESPIRATORY: Clear to auscultation bilaterally. No wheezing, rales, or rhonchi. CARDIOVASCULAR: Regular rate and rhythm. 3/6 crescendo decrescendo systolic murmur; S2 is not heard at the apex. No edema. ABDOMEN: Soft and non-tender. Normal bowel sounds. EXTREMITIES: No edema. Non-tender. SKIN: Warm and dry. Healing laceration, ~2cm, on left frontal scalp s/p excision of basal cell carcinoma; sutures are in place, well healing without discharge, minimal surrounding erythema. PSYCHIATRIC: Cooperative. Appropriate mood and affect. Results & Data ([facility]) Vital Signs (Past 12 Hours) Vital Signs Temp Pulse Pulse Resp BP Pulse Ox 02/16/20 07:28 36.8 C 85 19 111/70 97 02/16/20 03:58 36.6 C 82 17 97/59 L 97 02/15/20 23:59 96 H 02/15/20 23:28 37.8 C H 98 H 17 100/63 94 PG Care Time/CCT Total # of Minutes Spent Total Time Spent with Patient: Total time spent is greater than 50% in coordination of care (as documented) at patient's floor/unit and/or counseling patient: Coding Diagnoses Endocarditis I38 Severe aortic stenosis I35.0 Elevated troponin R77.8
--- NOTE | 2020-02-16 11:05 | Cardiology Progress Note ---
Date of Service February 16, 2020 Assessment & Plan (1) Endocarditis: IV abx x6 weeks per medicine team. No need for TAYLOR as vegetation is visible on atrial side of posterior mitral leaflet on TTE (2) Severe aortic stenosis: Plan for surveillance echo Outpatient cardiology follow up Abx for endocarditis and severely calcified aortic valve Fasting lipid profile without hyperlipidemia; no evidence to start statin at this time. (3) Elevated troponin: Troponin peaked at 0.997, repeat troponin 0.580 at 0832 on 02/15/20. This is likely demand ischemia secondary to severe aortic stenosis Admission and Anticipated Discharge Date Admission Date: February 14, 2020 Subjective Patient seen and evaluated at bedside this morning. Currently being treated for endocarditis with Nafcillin IV. He reports worsening generalized weakness and fatigue. He has a good appetite and is eating well without nausea or vomiting. Patient has no new complaints or concerns today. He denies CP, SOB, lightheadedness, dizziness, tachycardia, palpitations, or edema. Review of Systems Review of Systems: CONSTITUTIONAL: + fatigue, + weakness; no fever and no chills RESP: no cough and no dyspnea CARDIO: no chest pain, no dyspnea, no palpitations, no lightheadedness, no syncope, no edema, and no calf pain GI: no abdominal pain, no nausea, and no vomiting MS: no swelling NEURO: no dizziness and no headaches Physical Exam Physical Exam: GENERAL: Appears well but tired. No acute distress. Vital signs reviewed. EYES: EOMI. Anicteric sclerae. HENT: Moist mucous membranes. RESPIRATORY: Clear to auscultation bilaterally. No wheezing, rales, or rhonchi. CARDIOVASCULAR: Regular rate and rhythm. 3/6 crescendo decrescendo systolic murmur; S2 is not heard at the apex. No edema. ABDOMEN: Soft and non-tender. Normal bowel sounds. EXTREMITIES: No edema. Non-tender. SKIN: Warm and dry. Healing laceration, ~2cm, on left frontal scalp s/p excision of basal cell carcinoma; sutures are in place, well healing without discharge, minimal surrounding erythema. PSYCHIATRIC: Cooperative. Appropriate mood and affect. Results & Data ([facility]) Vital Signs (Past 12 Hours) Vital Signs Temp Pulse Pulse Resp BP Pulse Ox 02/16/20 07:28 36.8 C 85 19 111/70 97 10/13/20 03:58 36.6 C 82 17 97/59 L 97 02/15/20 23:59 96 H 02/15/20 23:28 37.8 C H 98 H 17 100/63 94 PG Care Time/CCT Total # of Minutes Spent Total Time Spent with Patient: Total time spent is greater than 50% in coordination of care (as documented) at patient's floor/unit and/or counseling patient: Coding Level of Care Code 06841 Subseq Hosp Care Lvl 3 Diagnoses Endocarditis I38 Severe aortic stenosis I35.0 Elevated troponin R77.8
--- NOTE | 2020-02-16 12:45 | Hospitalist Progress Note ---
Date of Service February 16, 2020 Assessment & Plan (1) Endocarditis: diagnosis based on MSSA positive blood cultures and vegetation on posterior mitral valve continue Nafcillin IV, still spiking fevers, will change to Vancomycin, await ID consult MRI brain with numerous septic emboli which would explain vertigo, confusion, fevers over past few weeks repeat blood cultures drawn today WBC is normal at 9k consult ID for recommendations, anticipating 6 weeks of IV antibiotics could be difficult because patient does not have insurance (2) Elevated troponin: Troponin upon admission 0.99, trending down no concern for ischemia at this time, he has endocarditis no wall motion changes on echo (3) Heart murmur: loudest at apex has mitral regurgitation from vegetation but also has that is severe (4) Vertigo: MRI brain had been arranged outpatient setting per PCP due to concerns regarding an acoustic neuroma. MRI brain 02/14 shows numerous septic emboli (5) Confusion: As noted above. related to septic emboli (6) Generalized weakness: Part of symptom complex (7) Sepsis: Empiric treatment as noted above change back to Vancomycin as he has fevers on the Nafcillin no signs of sepsis at this time (8) Urinary incontinence: Unclear etiology. We will need assessment for BPH if not already performed. It infection, potential source for endocarditis and/or septic emboli. (9) Abnormal LFTs: Follow serial laboratories May be alcohol-related hepatitis B/C negative (10) Hypokalemia: K up to 3.4 (11) Alcohol use: Unclear actual volume of alcohol patient intakes. He is receiving a banana bag from the ED. We will place on thiamine 100 mg p.o. daily, folic acid 1 mg p.o. daily and multivitamin daily (12) Severe aortic stenosis: noted on echo Admission and Anticipated Discharge Date Admission Date: February 14, 2020 Subjective patient doing okay today, still with a fever, not eating great but better than previous days reviewed lab work, WBC is normal at 9k, Hb 9.8, plts 99k, K is 3.4, Cr 0.79 discussed plan with patient for ID consult and likely needing 6 weeks of IV ant ibiotics he says that the insurance he belongs to will help pay the costs explained that he will likely be here the rest of the week Review of Systems Review of Systems: All systems reviewed & are unremarkable except as noted in Subjective Constitutional: + fever, + sweats, + fatigue and + weakness; no chills Respiratory: no cough and no dyspnea Cardiovascular: no chest pain and no edema Gastrointestinal: no abdominal pain, no nausea, no vomiting, no constipation and no diarrhea/loose stools Physical Exam Constitutional: WD/WN, vitals as above Neck: trachea midline, no thyromegaly Respiratory: normal respiratory effort, lungs clear to auscultation Cardiovascular: Rate/Rhythm: regular rate and regular rhythm Heart Sounds: normal S1, normal S2 and + murmur (systolic, louder at apex) Vessels: no JVD Extremities: normal capillary refill; no edema Gastrointestinal (Abdomen): normal bowel sounds, soft, nontender, no hepatosplenomegaly Musculoskeletal: no cyanosis or clubbing, extremities motor strength 5/5 Skin: no rashes, warm and dry Neurologic: patellar DTR's 2+ bilat, sensation intact and PERRL, EOMI, accommodation nl, no face palsy, no dysarthria Psychiatric: A+Ox3, euthymic affect Lymphatic: no cervical or axillary lymphadenopathy Results & Data Results & Data ([facility]) Vital Signs (Past 12 Hours) Vital Signs Temp Pulse Resp BP Pulse Ox 02/16/20 12:08 38.7 C H 99 H 19 109/69 99 02/16/20 07:28 36.8 C 85 19 111/70 97 02/16/20 03:58 36.6 C 82 17 97/59 L 97 Laboratory Results Laboratory Results - last 24 hr 02/14/20 02/16/20 02/16/20 21:48 06:33 06:37 WBC 9.14 RBC 3.19 L Hgb 9.8 L Hct 29.8 L MCV 93.4 MCH 30.7 MCHC 32.9 RDW Std Deviation 45.1 RDW Coeff of Arely 13.2 Plt Count 99 L MPV 11.1 H Immature Gran % (Auto) 0.3 Neut % (Auto) 87.1 Lymph % (Auto) 6.2 Real % (Auto) 6.1 Eos % (Auto) 0.3 Baso % (Auto) 0.0 Neut # (Auto) 7.95 H Lymph # (Auto) 0.57 L Real # (Auto) 0.56 Eos # (Auto) 0.03 Baso # (Auto) 0.00 Immature Gran # (Auto) 0.03 H Platelet Estimate Decreased L Giant Platelets 1+ Echinocytes 1+ Sodium Potassium Chloride Carbon Dioxide Anion Gap BUN Creatinine Est Cr Clr Drug Dosing Est GFR ( Amer) Est GFR (Non-Af Amer) BUN/Creatinine Ratio Glucose Calcium Triglycerides 111 Cholesterol 81 LDL Cholesterol, Calc 43 VLDL Cholesterol, Calc 22 HDL Cholesterol 16 Cholesterol/HDL Ratio 5 Hepatitis A IgM Ab NON-REACTIVE Hep B Core IgM Ab NON-REACTIVE 02/16/20 06:37 WBC RBC Hgb Hct MCV MCH MCHC RDW Std Deviation RDW Coeff of Arely Plt Count MPV Immature Gran % (Auto) Neut % (Auto) Lymph % (Auto) Real % (Auto) Eos % (Auto) Baso % (Auto) Neut # (Auto) Lymph # (Auto) Real # (Auto) Eos # (Auto) Baso # (Auto) Immature Gran # (Auto) Platelet Estimate Giant Platelets Echinocytes Sodium 138 Potassium 3.4 L Chloride 107 Carbon Dioxide 26 Anion Gap 5.0 BUN 15 Creatinine 0.79 Est Cr Clr Drug Dosing 107.8 Est GFR ( Amer) 113.1 Est GFR (Non-Af Amer) 97.6 BUN/Creatinine Ratio 18.6 Glucose 112 H Calcium 8.2 L Triglycerides Cholesterol LDL Cholesterol, Calc VLDL Cholesterol, Calc HDL Cholesterol Cholesterol/HDL Ratio Hepatitis A IgM Ab Hep B Core IgM Ab Medications Administered Current Inpatient Medications Acetaminophen (Acetaminophen 325 Mg Tab) 650 mg PO Q4H PRN PRN Reason: Pain or Fever Stop: 03/15/20 21:32 Last Admin: 02/16/20 12:13 Dose: 650 mg Documented by: Al Hydrox/Mg Hydrox/Simethicone (Aluminum/Magnesium Susp 30 Ml Udc) 15 ml PO Q4H PRN PRN Reason: Dyspepsia Stop: 03/15/20 21:32 Aspirin (Aspirin 81 Mg Ectab) [facility] Stop: 03/16/20 08:59 Last Admin: 02/16/20 08:11 Dose: 81 mg Documented by: Folic Acid (Folic Acid 1 Mg Tab) 1 mg PO QAM [facility] Stop: 03/16/20 08:59 Last Admin: 02/16/20 08:11 Dose: 1 mg Documented by: Heparin Sodium (Porcine) (Heparin Sod 5,000 Unit/0.5 Ml Vial) 5,000 units SQ Q12 [facility] Stop: 03/15/20 21:59 Last Admin: 02/16/20 08:11 Dose: 5,000 units Documented by: Potassium Chloride/Sodium Chloride (Normal Saline W/20 Meq Kcl) 20 meq in 1,000 mls @ 100 mls/hr IV .Q10H [facility] Stop: 03/15/20 21:59 Last Admin: 02/16/20 08:08 Dose: 100 mls/hr Documented by: Lorazepam (Ativan) 1 mg in 2 mls @ 2 mls/min IV UD PRN; Protocol PRN Reason: EtOH Withdrawl AWSS Score 6,7 Stop: 03/15/20 21:33 Lorazepam (Ativan) 2 mg in 4 mls @ 4 mls/min IV UD PRN; Protocol PRN Reason: EtOH Withdrawl AWSS Score 8,9 Stop: 03/15/20 21:33 Lorazepam (Ativan) 3 mg in 6 mls @ 4 mls/min IV ONCE PRN; Protocol PRN Reason: EtOH Withdrawl AWSS Score >=10 Stop: 03/15/20 21:33 Nafcillin Sodium 2,000 mg/ (Dextrose) 100 mls @ 100 mls/hr IV Q4H [facility]; Protocol Stop: 02/29/20 11:59 Last Infusion: 02/16/20 12:28 Dose: Infused Documented by: Magnesium Hydroxide (Magnesium Hydroxide Susp 30 Ml Udc) 30 ml PO Q12H PRN PRN Reason: Constipation Stop: 03/15/20 21:32 Multivitamins/Minerals (Cerovite Adv Formula Tab) 1 tab PO QAM [facility] Stop: 03/16/20 08:59 Last Admin: 02/16/20 08:11 Dose: 1 tab Documented by: Ondansetron HCl (Ondansetron Inj 2 Mg/Ml 2 Ml Vial) 4 mg IV Q6H PRN PRN Reason: Nausea Stop: 03/15/20 21:32 Thiamine HCl (Thiamine Hcl 100 Mg Tab) 100 mg PO QAM [facility] Stop: 03/16/20 08:59 Last Admin: 02/16/20 08:11 Dose: 100 mg Documented by: PG Care Time/CCT Total # of Minutes Spent Total Time Spent with Patient: Total time spent is greater than 50% in coordination of care (as documented) at patient's floor/unit and/or counseling patient: Coding Level of Care Code 65344 Subseq Hosp Care Lvl 3 Diagnoses Endocarditis I38 Elevated troponin R77.8 Heart murmur R01.1 Vertigo R42 Confusion R41.0 Generalized weakness R53.1 Sepsis A41.9; R65.20 Sepsis acute organ dysfunction status: with acute organ dysfunction Sepsis type: sepsis due to unspecified organism Severe sepsis acute organ dysfunction type: unspecified Severe sepsis shock status: without septic shock Urinary incontinence R32 Abnormal LFTs R94.5 Hypokalemia E87.6 Alcohol use Z72.89 Severe aortic stenosis I35.0 (1) Sepsis Sepsis acute organ dysfunction status: with acute organ dysfunction Sepsis type: sepsis due to unspecified organism Severe sepsis acute organ dysfunction type: unspecified Severe sepsis shock status: without septic shock Qualified Code(s): A41.9 - Sepsis, unspecified organism; R65.20 - Severe sepsis without septic shock
--- NOTE | 2020-02-16 14:13 | Electrocardiogram Report ---
Test Reason : Blood Pressure : / mmHG Vent. Rate : 090 BPM Atrial Rate : 000 BPM P-R Int : 000 ms QRS Dur : 096 ms QT Int : 424 ms P-R-T Axes : 000 004 089 degrees QTc Int : 518 ms Normal sinus rhythm Minimal voltage criteria for LVH, may be normal variant ( Saw product ) Prolonged QT Abnormal ECG When compared with ECG of 15-FEB-2020 06:49, Nonspecific T wave abnormality, improved in Lateral leads Confirmed by Gallito De La Rosa ([id number]) on 02/16/2020 2:12:41 PM Referred By: REFERRED SELF Confirmed By:Gallito De La Rosa
[2020-02-16] MEDS ORDERED: VANCOMYCIN TROUGH ONE (15:30)
[2020-02-16] MEDS ORDERED: VANCOMYCIN HCL 1,000 MG in SODIUM CHLORIDE 0.9% 250 ML IV SCH (21:45)
[2020-02-16] MEDS ORDERED: VANCOMYCIN CONSULT ACTIVE PRN (21:45)
[2020-02-16] MEDS ORDERED: VANCOMYCIN HCL 2,250 MG in SODIUM CHLORIDE 0.9% 500 ML IV SCH (22:00)
[2020-02-17] MEDS ORDERED: IBUPROFEN 200 MG TAB PO ONE (00:09)
[2020-02-17] MEDS: ACETAMINOPHEN 325 MG TAB PO PRN (00:17)
[2020-02-17] MEDS ORDERED: SODIUM CHLORIDE 0.9% 1000ML 1,000 ML IV ONE (00:32)
[2020-02-17 01:06] LABS: Eosinophils # (auto) 0.04 K/uL (0-0.5); Eosinophils % (auto) 0.3 %; Hematocrit (blood only) 31.5 % (42-52); Hemoglobin 10.6 g/dL (14.0-18.0); Immature Granulocytes # (auto) 0.04 K/uL (0.00-0.02); Immature Granulocytes % (auto) 0.3 %; Lymphocytes # (auto) 0.92 K/uL (1.2-3.4); Mean Corpuscular Hemoglobin 31.2 pg (25-34); Mean Corpuscular Volume 92.6 fL (80-100); Mean Platelet Volume 11.5 fL (7.4-10.4); Monocytes # (auto) 0.62 K/uL (0.11-0.59); Monocytes % (auto) 5.4 %; Neutrophils # (auto) 9.81 K/uL (1.4-6.5); Platelet Count 121 K/uL (130-400); RDW Coefficient of Variation 13.4 % (11.5-14.5); RDW Standard Deviation 44.8 fL (36.4-46.3); White Blood Count 11.43 K/uL (4.8-10.8)
[2020-02-17 01:34] LABS: Creatinine Clr Calc Pharmacy 110.6 ml/min; Est GFR (African American) 114.3; Est GFR (Non-African American) 98.6; Potassium 3.7 mmol/L (3.5-5.1)
[2020-02-17 01:35] LABS: Albumin Level 2.2 gm/dl (3.4-5.0); BUN Creatinine Ratio 20.7 (10-20); Calcium 7.9 mg/dl (8.5-10.1)
[2020-02-17 01:40] LABS: Albumin Globulin Ratio 0.6 (0.9-2); Bilirubin,Total 0.6 mg/dl (0.2-1); Globulin 3.5 gm/dl (2.5-4.0); Mean Corpuscular Hgb Conc 33.7 g/dL (32-36); Total Protein 5.7 gm/dl (6.4-8.2)
[2020-02-17] MEDS ORDERED: VANCOMYCIN HCL 1,500 MG in SODIUM CHLORIDE 0.9% 500 ML IV SCH (06:00)
[2020-02-17] MEDS: NSS + 20MEQ KCL 20 MEQ/1,000 ML BAG IV SCH ×2 (08:11→10:39)
[2020-02-17] MEDS: THIAMINE HCL 100 MG TAB PO SCH (08:13)
[2020-02-17] MEDS: ASPIRIN 81 MG ECTAB PO SCH (08:13)
[2020-02-17] MEDS: FOLIC ACID 1 MG TAB PO SCH (08:13)
[2020-02-17] MEDS: CEROVITE ADV FORMULA TAB PO SCH (08:13)
[2020-02-17] MEDS: HEPARIN SOD 5,000 UNIT/0.5 ML VIAL SQ SCH ×2 (08:13→22:19)
[2020-02-17] MEDS ORDERED: NAFCILLIN SODIUM 2,000 MG in DEXTROSE 5% 100 ML IV ONE (10:15)
--- NOTE | 2020-02-17 10:25 | Hospitalist Progress Note ---
Date of Service February 17, 2020 Assessment & Plan (1) Endocarditis: diagnosis based on MSSA positive blood cultures and vegetation on posterior mitral valve continue Nafcillin 12gm/day total, currently on 2gm IV q4 Nafcillin provides [employer] penetration MRI brain with numerous septic emboli which would explain vertigo, confusion, fevers over past few weeks repeat blood cultures drawn 02/15, still positive WBC is 11k consult ID for recommendations -- need negative blood cultures, then place PICC, treat with nafcillin for 6 weeks will need to follow labs weekly can refer for follow up with ID as outpatient in a few weeks once he is discharged (2) Elevated troponin: Troponin upon admission 0.99, trending down no concern for ischemia at this time, he has endocarditis no wall motion changes on echo (3) Heart murmur: loudest at apex has mitral regurgitation from vegetation but also has that is severe (4) Vertigo: MRI brain had been arranged outpatient setting per PCP due to concerns regarding an acoustic neuroma. MRI brain 02/14 shows numerous septic emboli PT/OT consulted (5) Confusion: As noted above. related to septic emboli (6) Generalized weakness: Part of symptom complex (7) Sepsis: Empiric treatment as noted above continue Nafcillin no signs of sepsis at this time (8) Urinary incontinence: Unclear etiology. We will need assessment for BPH if not already performed. It infection, potential source for endocarditis and/or septic emboli. (9) Abnormal LFTs: Follow serial laboratories May be alcohol-related hepatitis B/C negative (10) Hypokalemia: resolved (11) Alcohol use: Unclear actual volume of alcohol patient intakes. continue thiamine 100 mg p.o. daily, folic acid 1 mg p.o. daily and multivitamin daily (12) Severe aortic stenosis: noted on echo Admission and Anticipated Discharge Date Admission Date: February 14, 2020 Subjective patient says he is feeling a lot better today, breathing well, no fever/chills this morning reviewed ID consult, appreciate recommendations for Nafcillin for [employer] penetration needs blood cultures to be clean, the place PICC, plan for 6 weeks from negative cultures patient aware of the plan he is eating great, no nausea or vomiting c/o back pain, he says it is chronic, worse with sleeping in hospital bed reviewed labs, WBC 11k, Hb 10.6, plts 121, Cr 0.77 and electrolytes stable blood cultures from 02/15 still positive Review of Systems Review of Systems: All systems reviewed & are unremarkable except as noted in Subjective Constitutional: + fatigue and + weakness; no fever, no chills and no sweats Musculoskeletal: + back pain Physical Exam Constitutional: WD/WN, vitals as above Neck: trachea midline, no thyromegaly Respiratory: normal respiratory effort, lungs clear to auscultation Cardiovascular: Rate/Rhythm: regular rate and regular rhythm Heart Sounds: normal S1, normal S2 and + murmur (systolic, louder at apex) Vessels: no JVD Extremities: normal capillary refill; no edema Gastrointestinal (Abdomen): normal bowel sounds, soft, nontender, no hepatosplenomegaly Musculoskeletal: no cyanosis or clubbing, extremities motor strength 5/5 Skin: no rashes, warm and dry Neurologic: patellar DTR's 2+ bilat, sensation intact and PERRL, EOMI, accommodation nl, no face palsy, no dysarthria Psychiatric: A+Ox3, euthymic affect Lymphatic: no cervical or axillary lymphadenopathy Results & Data Results & Data ([facility]) Vital Signs (Past 12 Hours) Vital Signs Temp Pulse Pulse Resp BP Pulse Ox 02/17/20 07:53 36.4 C L 88 19 107/66 97 02/17/20 03:39 36.7 C 98 H 14 98/61 L 94 02/16/20 23:59 87 02/16/20 23:51 37.8 C H 100 H 16 128/78 95 Laboratory Results Laboratory Results - last 24 hr 02/17/20 02/17/20 02/17/20 00:55 00:55 00:55 WBC 11.43 H RBC 3.40 L Hgb 10.6 L Hct 31.5 L MCV 92.6 MCH 31.2 MCHC 33.7 RDW Std Deviation 44.8 RDW Coeff of Arely 13.4 Plt Count 121 L MPV 11.5 H Immature Gran % (Auto) 0.3 Neut % (Auto) 86.0 Lymph % (Auto) 8.0 Elk % (Auto) 5.4 Eos % (Auto) 0.3 Baso % (Auto) 0.0 Neut # (Auto) 9.81 H Lymph # (Auto) 0.92 L Elk # (Auto) 0.62 H Eos # (Auto) 0.04 Baso # (Auto) 0.00 Immature Gran # (Auto) 0.04 H Sodium 138 Potassium 3.7 Chloride 110 H Carbon Dioxide 21 Anion Gap 7.0 BUN 16 Creatinine 0.77 Est Cr Clr Drug Dosing 110.6 Est GFR ( Amer) 114.3 Est GFR (Non-Af Amer) 98.6 BUN/Creatinine Ratio 20.7 H Glucose 108 H Lactate 1.2 Calcium 7.9 L Total Bilirubin 0.6 D AST 40 H ALT 27 Alkaline Phosphatase 86 Total Protein 5.7 L Albumin 2.2 L Globulin 3.5 Albumin/Globulin Ratio 0.6 L Medications Administered Current Inpatient Medications Acetaminophen (Acetaminophen 325 Mg Tab) 650 mg PO Q4H PRN PRN Reason: Pain or Fever Stop: 03/15/20 21:32 Last Admin: 02/17/20 00:17 Dose: 650 mg Documented by: Al Hydrox/Mg Hydrox/Simethicone (Aluminum/Magnesium Susp 30 Ml Udc) 15 ml PO Q4 H PRN PRN Reason: Dyspepsia Stop: 03/15/20 21:32 Aspirin (Aspirin 81 Mg Ectab) [facility] Stop: 03/16/20 08:59 Last Admin: 02/17/20 08:13 Dose: 81 mg Documented by: Folic Acid (Folic Acid 1 Mg Tab) 1 mg PO QAM [facility] Stop: 03/16/20 08:59 Last Admin: 02/17/20 08:13 Dose: 1 mg Documented by: Heparin Sodium (Porcine) (Heparin Sod 5,000 Unit/0.5 Ml Vial) 5,000 units SQ Q12 [facility] Stop: 03/15/20 21:59 Last Admin: 02/17/20 08:13 Dose: 5,000 units Documented by: Potassium Chloride/Sodium Chloride (Normal Saline W/20 Meq Kcl) 20 meq in 1,000 mls @ 100 mls/hr IV .Q10H [facility] Stop: 03/15/20 21:59 Last Admin: 02/17/20 08:11 Dose: 100 mls/hr Documented by: Lorazepam (Ativan) 1 mg in 2 mls @ 2 mls/min IV UD PRN; Protocol PRN Reason: EtOH Withdrawl AWSS Score 6,7 Stop: 03/15/20 21:33 Lorazepam (Ativan) 2 mg in 4 mls @ 4 mls/min IV UD PRN; Protocol PRN Reason: EtOH Withdrawl AWSS Score 8,9 Stop: 03/15/20 21:33 Lorazepam (Ativan) 3 mg in 6 mls @ 4 mls/min IV ONCE PRN; Protocol PRN Reason: EtOH Withdrawl AWSS Score >=10 Stop: 03/15/20 21:33 Nafcillin Sodium 2,000 mg/ (Dextrose) 108 mls @ 100 mls/hr IV Q4H [facility] Stop: 03/30/20 13:59 Nafcillin Sodium 2,000 mg/ (Dextrose) 108 mls @ 100 mls/hr IV ONE ONE Stop: 02/17/20 11:19 Magnesium Hydroxide (Magnesium Hydroxide Susp 30 Ml Udc) 30 ml PO Q12H PRN PRN Reason: Constipation Stop: 03/15/20 21:32 Multivitamins/Minerals (Cerovite Adv Formula Tab) 1 tab PO QAM [facility] Stop: 03/16/20 08:59 Last Admin: 02/17/20 08:13 Dose: 1 tab Documented by: Ondansetron HCl (Ondansetron Inj 2 Mg/Ml 2 Ml Vial) 4 mg IV Q6H PRN PRN Reason: Nausea Stop: 03/15/20 21:32 Thiamine HCl (Thiamine Hcl 100 Mg Tab) 100 mg PO QAM [facility] Stop: 03/16/20 08:59 Last Admin: 02/17/20 08:13 Dose: 100 mg Documented by: PG Care Time/CCT Total # of Minutes Spent Total Time Spent with Patient: Total time spent is greater than 50% in coordi nation of care (as documented) at patient's floor/unit and/or counseling patient: Coding Level of Care Code 90340 Subseq Hosp Care Lvl 2 Diagnoses Endocarditis I38 Elevated troponin R77.8 Heart murmur R01.1 Vertigo R42 Confusion R41.0 Generalized weakness R53.1 Sepsis A41.9; R65.20 Sepsis acute organ dysfunction status: with acute organ dysfunction Sepsis type: sepsis due to unspecified organism Severe sepsis acute organ dysfunction type: unspecified Severe sepsis shock status: without septic shock Urinary incontinence R32 Abnormal LFTs R94.5 Hypokalemia E87.6 Alcohol use Z72.89 Severe aortic stenosis I35.0 (1) Sepsis Sepsis acute organ dysfunction status: with acute organ dysfunction Sepsis type: sepsis due to unspecified organism Severe sepsis acute organ dysfunction type: unspecified Severe sepsis shock status: without septic shock Qualified Code(s): A41.9 - Sepsis, unspecified organism; R65.20 - Severe sepsis without septic shock
--- NOTE | 2020-02-17 10:54 | Cardiology Progress Note ---
Date of Service February 17, 2020 Assessment & Plan (1) Endocarditis: Continue IV abx per ID and medicine team. Vegetation (2 x 0.8 cm) visible on atrial side of posterior mitral leaflet on TTE; no need for TAYLOR at this time (2) Severe aortic stenosis: Will need outpatient surveillance echos Outpatient cardiology follow up Abx for endocarditis and severely calcified aortic valve Fasting lipid profile without hyperlipidemia; no evidence to start statin at this time Plan to recheck FLP in 1 year (3) Elevated troponin: Troponin peaked at 0.997, repeat troponin 0.580 at 0832 on 02/15/20. This is likely demand ischemia secondary to severe aortic stenosis Admission and Anticipated Discharge Date Admission Date: February 14, 2020 Supervising Physician Co-Signing Physician Notes Patient seen and examined with Dr. Fuentes. Agree with her assessment plan. Subjective Patient seen and evaluated in room this morning; he was laying in bed and only complaint was chronic back pain, exacerbated by laying in the hospital bed. Patient requested to get OOB to chair. With assistance of NA, we helped patient transfer to chair at bedside. He reports that this sitting in the chair does slightly decrease the back pain. He has no other complaints or concerns today. Patient states that he is overall "feeling much better." He is currently afebrile and denies sweats or chills. He also denies CP, SOB, lightheadedness, dizziness, nausea, vomiting, or LE swelling. Review of Systems Review of Systems: CONSTITUTIONAL: no fever, no sweats and no chills RESP: no cough and no dyspnea CARDIO: no chest pain, no dyspnea, no palpitations, no lightheadedness, no syncope, no edema, and no calf pain GI: no abdominal pain, no nausea, and no vomiting MS: +back pain and no swelling NEURO: no dizziness and no headaches Physical Exam Physical Exam: GENERAL: Appears well. No acute distress. Vital signs reviewed. EYES: EOMI. Anicteric sclerae. HENT: Moist mucous membranes. RESPIRATORY: Clear to auscultation bilaterally. No wheezing, rales, or rhonchi. CARDIOVASCULAR: Regular rate and rhythm. 3/6 crescendo decrescendo systolic murmur. No edema. ABDOMEN: Soft and non-tender. Normal bowel sounds. EXTREMITIES: No edema. Non-tender. SKIN: Warm and dry. PSYCHIATRIC: Cooperative. Appropriate mood and affect. Results & Data ([facility]) Vital Signs (Past 12 Hours) Vital Signs Temp Pulse Pulse Resp BP Pulse Ox 02/17/20 07:53 36.4 C L 88 19 107/66 97 02/17/20 03:39 36.7 C 98 H 14 98/61 L 94 02/16/20 23:59 87 02/16/20 23:51 37.8 C H 100 H 16 128/78 95 PG Care Time/CCT Total # of Minutes Spent Total Time Spent with Patient: Total time spent is greater than 50% in coordination of care (as documented) at patient's floor/unit and/or counseling patient: Coding Level of Care Code 59933 Subseq Hosp Care Lvl 3 Diagnoses Endocarditis I38 Severe aortic stenosis I35.0 Elevated troponin R77.8
[2020-02-17] MEDS: NAFCILLIN SODIUM 2,000 MG in DEXTROSE 5% 100 ML IV SCH ×3 (13:45→22:19)
[2020-02-17] MEDS ORDERED: VANCOMYCIN TROUGH ONE ×2 (21:30→23:30)
[2020-02-18] MEDS: NAFCILLIN SODIUM 2,000 MG in DEXTROSE 5% 100 ML IV SCH ×6 (01:50→21:57)
[2020-02-18] MEDS: ACETAMINOPHEN 325 MG TAB PO PRN (06:44)
[2020-02-18 08:31] LABS: Basophils # (auto) 0.02 K/uL (0-0.2); Basophils % (auto) 0.1 %; Eosinophils # (auto) 0.05 K/uL (0-0.5); Eosinophils % (auto) 0.4 %; Hematocrit (blood only) 28.6 % (42-52); Hemoglobin 9.3 g/dL (14.0-18.0); Immature Granulocytes # (auto) 0.08 K/uL (0.00-0.02); Immature Granulocytes % (auto) 0.6 %; Lymphocytes # (auto) 0.91 K/uL (1.2-3.4); Lymphocytes % (auto) 6.8 %; Mean Corpuscular Hemoglobin 30.4 pg (25-34); Mean Corpuscular Hgb Conc 32.5 g/dL (32-36); Mean Corpuscular Volume 93.5 fL (80-100); Mean Platelet Volume 11.1 fL (7.4-10.4); Monocytes # (auto) 0.93 K/uL (0.11-0.59); Neutrophils # (auto) 11.37 K/uL (1.4-6.5); Neutrophils % (auto) 85.1 %; Platelet Count 122 K/uL (130-400); RDW Coefficient of Variation 13.6 % (11.5-14.5); RDW Standard Deviation 46.5 fL (36.4-46.3); Red Blood Count 3.06 M/uL (4.7-6.1); White Blood Count 13.36 K/uL (4.8-10.8)
[2020-02-18] MEDS: HEPARIN SOD 5,000 UNIT/0.5 ML VIAL SQ SCH ×2 (08:32→22:00)
[2020-02-18] MEDS: THIAMINE HCL 100 MG TAB PO SCH (08:38)
[2020-02-18] MEDS: CEROVITE ADV FORMULA TAB PO SCH (08:39)
[2020-02-18] MEDS: ASPIRIN 81 MG ECTAB PO SCH (08:39)
[2020-02-18] MEDS: FOLIC ACID 1 MG TAB PO SCH (08:39)
[2020-02-18 09:14] LABS: Calcium 8.4 mg/dl (8.5-10.1); Creatinine Clr Calc Pharmacy 108.9 ml/min; Est GFR (Non-African American) 96.6; Potassium 2.8 mmol/L (3.5-5.1)
[2020-02-18] MEDS: POTASSIUM CHLORIDE CRTAB 20 MEQ TABCR PO SCH ×2 (15:00→22:00)
--- NOTE | 2020-02-18 22:25 | Hospitalist Progress Note ---
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 MRI brain with numerous septic emboli which would explain vertigo, confusion, fevers over past few weeks repeat blood cultures drawn 02/15, still positive WBC is 13k, still with periodic fevers consult ID for recommendations -- need negative blood cultures, then place PICC, treat with nafcillin for 6 weeks will need to follow labs weekly can refer for follow up with ID as outpatient in a few weeks once he is discharged (2) Elevated troponin: Troponin upon admission 0.99, trending down no concern for ischemia at this time, he has endocarditis no wall motion changes on echo (3) Heart murmur: loudest at apex has mitral regurgitation from vegetation but also has that is severe (4) Vertigo: MRI brain had been arranged outpatient setting per PCP due to concerns regarding an acoustic neuroma. MRI brain 02/14 shows numerous septic emboli PT/OT consulted (5) Confusion: As noted above. related to septic emboli (6) Generalized weakness: Part of symptom complex (7) Sepsis: Empiric treatment as noted above continue Nafcillin no signs of sepsis at this time (8) Urinary incontinence: Unclear etiology. We will need assessment for BPH if not already performed. It infection, potential source for endocarditis and/or septic emboli. (9) Abnormal LFTs: Follow serial laboratories May be alcohol-related hepatitis B/C negative (10) Hypokalemia: resolved (11) Alcohol use: Unclear actual volume of alcohol patient intakes. continue thiamine 100 mg p.o. daily, folic acid 1 mg p.o. daily and multivitamin daily (12) Severe aortic stenosis: noted on echo Admission and Anticipated Discharge Date Admission Date: February 14, 2020 Subjective patient is doing well, no fever today, he is eating well he has been doing exercises in his room, trying to get stronger less back pain today, he is happy to have a private room reviewed labs, WBC 13k, blood cultures from two days ago with MSSA, repeat cultures drawn today d/w CM, look for cheaper option when it comes to Nafcillin Review of Systems Review of Systems: All systems reviewed & are unremarkable except as noted in Subjective Constitutional: + fever (yesterday) and + weakness; no chills, no sweats and no fatigue Respiratory: no cough and no dyspnea Cardiovascular: no chest pain, no lightheadedness, no syncope and no edema Gastrointestinal: no abdominal pain, no nausea, no vomiting, no constipation and no diarrhea/loose stools Musculoskeletal: + back pain Physical Exam Constitutional: WD/WN, vitals as above Neck: trachea midline, no thyromegaly Respiratory: normal respiratory effort, lungs clear to auscultation Cardiovascular: Rate/Rhythm: regular rate and regular rhythm Heart Sounds: normal S1, normal S2 and + murmur (systolic, louder at apex) Vessels: no JVD Extremities: normal capillary refill; no edema Gastrointestinal (Abdomen): normal bowel sounds, soft, nontender, no hepatosplenomegaly Musculoskeletal: no cyanosis or clubbing, extremities motor strength 5/5 Skin: no rashes, warm and dry Neurologic: patellar DTR's 2+ bilat, sensation intact and PERRL, EOMI, accommodation nl, no face palsy, no dysarthria Psychiatric: A+Ox3, euthymic affect Lymphatic: no cervical or axillary lymphadenopathy Results & Data Results & Data ([facility]) Vital Signs (Past 12 Hours) Vital Signs Temp Pulse Resp BP Pulse Ox 02/18/20 16:05 36.7 C 98 H 16 109/68 98 Laboratory Results Laboratory Results - last 24 hr 02/18/20 02/18/20 07:58 07:58 WBC 13.36 H RBC 3.06 L Hgb 9.3 L Hct 28.6 L MCV 93.5 MCH 30.4 MCHC 32.5 RDW Std Deviation 46.5 H RDW Coeff of Arely 13.6 Plt Count 122 L MPV 11.1 H Immature Gran % (Auto) 0.6 Neut % (Auto) 85.1 Lymph % (Auto) 6.8 [place]al[place] % (Auto) 7.0 Eos % (Auto) 0.4 Baso % (Auto) 0.1 Neut # (Auto) 11.37 H Lymph # (Auto) 0.91 L [place] # (Auto) 0.93 H Eos # (Auto) 0.05 Baso # (Auto) 0.02 Immature Gran # (Auto) 0.08 H Sodium 139 Potassium 2.8 L D Chloride 109 H Carbon Dioxide 22 Anion Gap 8.0 BUN 10 D Creatinine 0.81 Est Cr Clr Drug Dosing 108.9 Est GFR ( Amer) 112.0 Est GFR (Non-Af Amer) 96.6 BUN/Creatinine Ratio 12.0 Glucose 107 H Calcium 8.4 L Microbiology 02/14/20 17:10 Blood Aerobic Blood Culture - Preliminary No growth in Aerobic bottle after 48 hours. 02/14/20 17:10 Blood Anaerobic Blood Culture - Preliminary Enterococcus faecalis Staphylococcus aureus 02/16/20 08:14 Blood Aerobic Blood Culture - Preliminary Staphylococcus aureus 02/16/20 08:14 Blood Anaerobic Blood Culture - Preliminary No growth in Anaerobic bottle after 48 hours. 02/16/20 08:22 Blood Aerobic Blood Culture - Preliminary Staphylococcus aureus 02/16/20 08:22 Blood Anaerobic Blood Culture - Final 02/14/20 16:50 Blood Aerobic Blood Culture - Final Staphylococcus aureus 02/14/20 16:50 Blood Anaerobic Blood Culture - Final Staphylococcus aureus 02/14/20 19:20 Urine,Clean Catch Urine Culture - Final No growth - less than 1,000 colonies/mL. Medications Administered Current Inpatient Medications Acetaminophen (Acetaminophen 325 Mg Tab) 650 mg PO Q4H PRN PRN Reason: Pain or Fever Stop: 03/15/20 21:32 Last Admin: 02/18/20 06:44 Dose: 650 mg Documented by: Al Hydrox/Mg Hydrox/Simethicone (Aluminum/Magnesium Susp 30 Ml Udc) 15 ml PO Q4H PRN PRN Reason: Dyspepsia Stop: 03/15/20 21:32 Aspirin (Aspirin 81 Mg Ectab) 81 mg PO [facility] Stop: 03/16/20 08:59 Last Admin: 02/18/20 08:39 Dose: 81 mg Documented by: Folic Acid (Folic Acid 1 Mg Tab) [facility] Stop: 03/16/20 08:59 Last Admin: 02/18/20 08:39 Dose: 1 mg Documented by: Heparin Sodium (Porcine) (Heparin Sod 5,000 Unit/0.5 Ml Vial) 5,000 units SQ Q12 [facility] Stop: 03/15/20 21:59 Last Admin: 02/18/20 22:00 Dose: 5,000 units Documented by: Nafcillin Sodium 2,000 mg/ (Dextrose) 108 mls @ 100 mls/hr IV Q4H [facility] Stop: 03/30/20 13:59 Last Admin: 02/18/20 21:57 Dose: 100 mls/hr Documented by: Magnesium Hydroxide (Magnesium Hydroxide Susp 30 Ml Udc) 30 ml PO Q12H PRN PRN Reason: Constipation Stop: 03/15/20 21:32 Last Admin: 02/18/20 11:53 Dose: 30 ml Documented by: Multivitamins/Minerals (Cerovite Adv Formula Tab) 1 tab PO [facility] Stop: 03/16/20 08:59 Last Admin: 02/18/20 08:39 Dose: 1 tab Documented by: Ondansetron HCl (Ondansetron Inj 2 Mg/Ml 2 Ml Vial) 4 mg IV Q6H PRN PRN Reason: Nausea Stop: 03/15/20 21:32 Potassium Chloride (Potassium Chloride 20 Meq Tabcr) 20 meq PO TID [facility] Stop: 03/19/20 13:59 Last Admin: 02/18/20 22:00 Dose: 20 meq Documented by: Thiamine HCl (Thiamine Hcl 100 Mg Tab) 100 mg PO QAM [facility] Stop: 03/16/20 08:59 Last Admin: 02/18/20 08:38 Dose: 100 mg Documented by: PG Care Time/CCT Total # of Minutes Spent Total Time Spent with Patient: Total time spent is greater than 50% in coordination of care (as documented) at patient's floor/unit and/or counseling patient: Coding Level of Care Code 42227 Subseq Hosp Care Lvl 2 Diagnoses Endocarditis I38 Elevated troponin R77.8 Heart murmur R01.1 Vertigo R42 Confusion R41.0 Generalized weakness R53.1 Sepsis A41.9; R65.20 Sepsis acute organ dysfunction status: with acute organ dysfunction Sepsis type: sepsis due to unspecified organism Severe sepsis acute organ dysfunction type: unspecified Severe sepsis shock status: without septic shock Urinary incontinence R32 Abnormal LFTs R94.5 Hypokalemia E87.6 Alcohol use Z72.89 Severe aortic stenosis I35.0 (1) Sepsis Sepsis acute organ dysfunction status: with acute organ dysfunction Sepsis type: sepsis due to unspecified organism Severe sepsis acute organ dysfunction type: unspecified Severe sepsis shock status: without septic shock Qualified Code(s): A41.9 - Sepsis, unspecified organism; R65.20 - Severe sepsis without septic shock
[2020-02-19] MEDS: NAFCILLIN SODIUM 2,000 MG in DEXTROSE 5% 100 ML IV SCH ×7 (02:56→21:10)
[2020-02-19] MEDS: ACETAMINOPHEN 325 MG TAB PO PRN ×2 (06:24→23:36)
[2020-02-19 08:26] LABS: Basophils # (auto) 0.01 K/uL (0-0.2); Basophils % (auto) 0.1 %; Eosinophils # (auto) 0.03 K/uL (0-0.5); Eosinophils % (auto) 0.3 %; Hematocrit (blood only) 27.4 % (42-52); Hemoglobin 9.1 g/dL (14.0-18.0); Immature Granulocytes # (auto) 0.06 K/uL (0.00-0.02); Immature Granulocytes % (auto) 0.5 %; Lymphocytes # (auto) 0.74 K/uL (1.2-3.4); Lymphocytes % (auto) 6.5 %; Mean Corpuscular Hgb Conc 33.2 g/dL (32-36); Mean Corpuscular Volume 93.2 fL (80-100); Mean Platelet Volume 10.8 fL (7.4-10.4); Monocytes # (auto) 0.88 K/uL (0.11-0.59); Monocytes % (auto) 7.7 %; Neutrophils # (auto) 9.71 K/uL (1.4-6.5); Neutrophils % (auto) 84.9 %; Platelet Count 120 K/uL (130-400); RDW Coefficient of Variation 13.7 % (11.5-14.5); RDW Standard Deviation 46.9 fL (36.4-46.3); Red Blood Count 2.94 M/uL (4.7-6.1); White Blood Count 11.43 K/uL (4.8-10.8)
[2020-02-19] MEDS: CEROVITE ADV FORMULA TAB PO SCH (08:38)
[2020-02-19] MEDS: THIAMINE HCL 100 MG TAB PO SCH (08:38)
[2020-02-19] MEDS: POTASSIUM CHLORIDE CRTAB 20 MEQ TABCR PO SCH ×3 (08:38→21:11)
[2020-02-19] MEDS: ASPIRIN 81 MG ECTAB PO SCH (08:38)
[2020-02-19] MEDS: FOLIC ACID 1 MG TAB PO SCH (08:38)
[2020-02-19] MEDS: HEPARIN SOD 5,000 UNIT/0.5 ML VIAL SQ SCH ×2 (08:39→21:11)
[2020-02-19 08:51] LABS: BUN Creatinine Ratio 13.5 (10-20); Calcium 8.3 mg/dl (8.5-10.1); Creatinine Clr Calc Pharmacy 108.9 ml/min; Est GFR (Non-African American) 96.6
--- NOTE | 2020-02-19 09:59 | Cardiology Progress Note ---
Date of Service February 19, 2020 Assessment & Plan (1) Endocarditis: -vegetation noted on the atrial side of the posterior mitral leaflet. -blood cultures positive for methicillin sensitive Staph aureus. -continue IV nafcillin. (2) Severe aortic stenosis: -asymptomatic thus far. -will continue with surveillance echocardiograms. (3) Elevated troponin: -likely a supply demand mismatch at time of presentation. -troponin peaked at 0.99. Admission and Anticipated Discharge Date Admission Date: February 14, 2020 Subjective The patient is resting comfortably in the bedside chair without complaints of chest pain or dyspnea. Low back pain is improving. Physical Exam Physical Exam: In general is well-developed well-nourished white male in no acute distress. HEENT exam is negative. Neck is supple with delayed and prolonged carotid upstrokes. Transmitted murmur is noted bilaterally. No JVD. Lungs are clear without rales, rhonchi, or wheezes. Abdomen is obese without bruits. Extremities reveal intact radial artery pulses bilaterally. There is 1 to 2+ nonpitting edema in the pretibial regions bilaterally. Results & Data ([facility]) Vital Signs (Past 12 Hours) Vital Signs Temp Pulse Pulse Resp BP BP Pulse Ox 02/19/20 08:17 36.9 C 93 H 18 110/70 96 02/19/20 00:30 37.4 C 110 H 24 122/63 93 02/18/20 23:04 36.8 C 110 H 18 120/69 97 PG Care Time/CCT Total # of Minutes Spent Total Time Spent with Patient: Total time spent is greater than 50% in coordination of care (as documented) at patient's floor/unit and/or counseling patient: Coding Level of Care Code 82899 Subseq Hosp Care Lvl 3 Diagnoses Endocarditis I38 Severe aortic stenosis I35.0 Elevated troponin R77.8
--- NOTE | 2020-02-19 22:35 | Hospitalist Progress Note ---
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 MRI brain with numerous septic emboli which would explain vertigo, confusion, fevers over past few weeks repeat blood cultures drawn 02/15 were positive for MSSA repeat blood cultures on 02/17 show no growth thus far no fever today for 24 hours, WBC down to 11k hopeful that his cultures will be sterile finally consult ID for recommendations -- need negative blood cultures, then place PICC, treat with nafcillin for 6 weeks will need to follow labs weekly can refer for follow up with ID as outpatient in a few weeks once he is discharged (2) Elevated troponin: Troponin upon admission 0.99, trending down no concern for ischemia at this time, he has endocarditis no wall motion changes on echo (3) Heart murmur: loudest at apex has mitral regurgitation from vegetation but also has that is severe (4) Vertigo: MRI brain had been arranged outpatient setting per PCP due to concerns regarding an acoustic neuroma. MRI brain 02/14 shows numerous septic emboli PT/OT consulted (5) Confusion: As noted above. related to septic emboli (6) Generalized weakness: Part of symptom complex (7) Sepsis: Empiric treatment as noted above continue Nafcillin no signs of sepsis at this time (8) Urinary incontinence: Unclear etiology. We will need assessment for BPH if not already performed. It infection, potential source for endocarditis and/or septic emboli. (9) Abnormal LFTs: Follow serial laboratories May be alcohol-related hepatitis B/C negative (10) Hypokalemia: low at 3.0 but improving continue 20mEq TID replacement (11) Alcohol use: Unclear actual volume of alcohol patient intakes. continue thiamine 100 mg p.o. daily, folic acid 1 mg p.o. daily and multivitamin daily (12) Severe aortic stenosis: noted on echo Admission and Anticipated Discharge Date Admission Date: February 14, 2020 Subjective patient feeling the best he has felt in days no fever for 24 hours which is a first for him blood cultures from yesterday show no growth so far he feels like he is getting stronger he had a BM yesterday reviewed labs, K is 3.0, WBC is 11k, Hb 9 discussed that if blood cultures show no growth through tomorrow then we can get a PICC on Saturday Review of Systems Review of Systems: All systems reviewed & are unremarkable except as noted in Subjective Constitutional: no fever, no chills and no sweats Respiratory: no cough and no dyspnea Cardiovascular: no chest pain, no palpitations, no syncope and no edema Gastrointestinal: no abdominal pain, no nausea, no vomiting, no constipation and no diarrhea/loose stools Physical Exam Constitutional: WD/WN, vitals as above Neck: trachea midline, no thyromegaly Respiratory: normal respiratory effort, lungs clear to auscultation Cardiovascular: Rate/Rhythm: regular rate and regular rhythm Heart Sounds: normal S1, normal S2 and + murmur (systolic, louder at apex) Vessels: no JVD Extremities: normal capillary refill; no edema Gastrointestinal (Abdomen): normal bowel sounds, soft, nontender, no hepatosplenomegaly Musculoskeletal: no cyanosis or clubbing, extremities motor strength 5/5 Skin: no rashes, warm and dry Neurologic: patellar DTR's 2+ bilat, sensation intact and PERRL, EOMI, accommodation nl, no face palsy, no dysarthria Psychiatric: A+Ox3, euthymic affect Lymphatic: no cervical or axillary lymphadenopathy Results & Data Results & Data ([facility]) Vital Signs (Past 12 Hours) Vital Signs Temp Pulse Resp BP Pulse Ox 02/19/20 15:14 36.8 C 90 16 125/70 99 Laboratory Results Laboratory Results - last 24 hr 02/19/20 02/19/20 08:11 08:11 WBC 11.43 H RBC 2.94 L Hgb 9.1 L Hct 27.4 L MCV 93.2 MCH 31.0 MCHC 33.2 RDW Std Deviation 46.9 H RDW Coeff of Arely 13.7 Plt Count 120 L MPV 10.8 H Immature Gran % (Auto) 0.5 Neut % (Auto) 84.9 Lymph % (Auto) 6.5 [place]iken % (Auto) 7.7 Eos % (Auto) 0.3 Baso % (Auto) 0.1 Neut # (Auto) 9.71 H Lymph # (Auto) 0.74 L [place]iken # (Auto) 0.88 H Eos # (Auto) 0.03 Baso # (Auto) 0.01 Immature Gran # (Auto) 0.06 H Sodium 138 Potassium 3.0 L Chloride 106 Carbon Dioxide 25 Anion Gap 7.0 BUN 11 Creatinine 0.81 Est Cr Clr Drug Dosing 108.9 Est GFR ( Amer) 112.0 Est GFR (Non-Af Amer) 96.6 BUN/Creatinine Ratio 13.5 Glucose 119 H Calcium 8.3 L Medications Administered Current Inpatient Medications Acetaminophen (Acetaminophen 325 Mg Tab) 650 mg PO Q4H PRN PRN Reason: Pain or Fever Stop: 03/15/20 21:32 Last Admin: 02/19/20 06:24 Dose: 650 mg Documented by: Al Hydrox/Mg Hydrox/Simethicone (Aluminum/Magnesium Susp 30 Ml Udc) 15 ml PO Q4H PRN PRN Reason: Dyspepsia Stop: 03/15/20 21:32 Aspirin (Aspirin 81 Mg Ectab) 81 mg PO [facility] Stop: 03/16/20 08:59 Last Admin: 02/19/20 08:38 Dose: 81 mg Documented by: Folic Acid (Folic Acid 1 Mg Tab) 1 mg PO [facility] Stop: 03/16/20 08:59 Last Admin: 02/19/20 08:38 Dose: 1 mg Documented by: Heparin Sodium (Porcine) (Heparin Sod 5,000 Unit/0.5 Ml Vial) 5,000 units SQ Q12 [facility] Stop: 03/15/20 21:59 Last Admin: 02/19/20 21:11 Dose: 5,000 units Documented by: Nafcillin Sodium 2,000 mg/ (Dextrose) 108 mls @ 100 mls/hr IV Q4H [facility] Stop: 03/30/20 13:59 Last Infusion: 02/19/20 22:15 Dose: Infused Documented by: Magnesium Hydroxide (Magnesium Hydroxide Susp 30 Ml Udc) 30 ml PO Q12H PRN PRN Reason: Constipation Stop: 03/15/20 21:32 Last Admin: 02/18/20 11:53 Dose: 30 ml Documented by: Multivitamins/Minerals (Cerovite Adv Formula Tab) 1 tab PO [facility] Stop: 03/16/20 08:59 Last Admin: 02/19/20 08:38 Dose: 1 tab Documented by: Ondansetron HCl (Ondansetron Inj 2 Mg/Ml 2 Ml Vial) 4 mg IV Q6H PRN PRN Reason: Nausea Stop: 03/15/20 21:32 Potassium Chloride (Potassium Chloride 20 Meq Tabcr) 20 meq PO TID [facility] Stop: 03/19/20 13:59 Last Admin: 02/19/20 21:11 Dose: 20 meq Documented by: Thiamine HCl (Thiamine Hcl 100 Mg Tab) 100 mg PO QAM [facility] Stop: 03/16/20 08:59 Last Admin: 02/19/20 08:38 Dose: 100 mg Documented by: PG Care Time/CCT Total # of Minutes Spent Total Time Spent with Patient: Total time spent is greater than 50% in coordination of care (as documented) at patient's floor/unit and/or counseling patient: Coding Level of Care Code 12162 Subseq Hosp Care Lvl 2 Diagnoses Endocarditis I38 Elevated troponin R77.8 Heart murmur R01.1 Vertigo R42 Confusion R41.0 Generalized weakness R53.1 Sepsis A41.9; R65.20 Sepsis acute organ dysfunction status: with acute organ dysfunction Sepsis type: sepsis due to unspecified organism Severe sepsis acute organ dysfunction type: unspecified Severe sepsis shock status: without septic shock Urinary incontinence R32 Abnormal LFTs R94.5 Hypokalemia E87.6 Alcohol use Z72.89 Severe aortic stenosis I35.0 (1) Sepsis Sepsis acute organ dysfunction status: with acute organ dysfunction Sepsis type: sepsis due to unspecified organism Severe sepsis acute organ dysfunction type: unspecified Severe sepsis shock status: without septic shock Qualified Code(s): A41.9 - Sepsis, unspecified organism; R65.20 - Severe sepsis without septic shock
[2020-02-20] MEDS: NAFCILLIN SODIUM 2,000 MG in DEXTROSE 5% 100 ML IV SCH ×6 (01:53→22:55)
[2020-02-20 06:04] LABS: Basophils # (auto) 0.01 K/uL (0-0.2); Basophils % (auto) 0.1 %; Eosinophils # (auto) 0.06 K/uL (0-0.5); Eosinophils % (auto) 0.6 %; Hematocrit (blood only) 26.9 % (42-52); Hemoglobin 8.8 g/dL (14.0-18.0); Immature Granulocytes # (auto) 0.05 K/uL (0.00-0.02); Immature Granulocytes % (auto) 0.5 %; Lymphocytes # (auto) 0.96 K/uL (1.2-3.4); Lymphocytes % (auto) 10.2 %; Mean Corpuscular Hemoglobin 30.6 pg (25-34); Mean Corpuscular Hgb Conc 32.7 g/dL (32-36); Mean Corpuscular Volume 93.4 fL (80-100); Monocytes # (auto) 0.82 K/uL (0.11-0.59); Monocytes % (auto) 8.8 %; Neutrophils # (auto) 7.47 K/uL (1.4-6.5); Neutrophils % (auto) 79.8 %; Platelet Count 139 K/uL (130-400); RDW Standard Deviation 47.1 fL (36.4-46.3); Red Blood Count 2.88 M/uL (4.7-6.1); White Blood Count 9.37 K/uL (4.8-10.8)
[2020-02-20 06:38] LABS: BUN Creatinine Ratio 15.5 (10-20); Calcium 8.6 mg/dl (8.5-10.1); Creatinine Clr Calc Pharmacy 119.2 ml/min; Est GFR (African American) 116.2; Est GFR (Non-African American) 100.3; Potassium 3.2 mmol/L (3.5-5.1)
[2020-02-20] MEDS: POTASSIUM CHLORIDE CRTAB 20 MEQ TABCR PO SCH ×3 (09:48→20:28)
[2020-02-20] MEDS: ACETAMINOPHEN 325 MG TAB PO PRN ×2 (09:48→23:00)
[2020-02-20] MEDS: THIAMINE HCL 100 MG TAB PO SCH (09:48)
[2020-02-20] MEDS: HEPARIN SOD 5,000 UNIT/0.5 ML VIAL SQ SCH ×2 (09:49→20:28)
[2020-02-20] MEDS: FOLIC ACID 1 MG TAB PO SCH (09:49)
[2020-02-20] MEDS: CEROVITE ADV FORMULA TAB PO SCH (09:49)
[2020-02-20] MEDS: ASPIRIN 81 MG ECTAB PO SCH (09:49)
--- NOTE | 2020-02-20 18:56 | Hospitalist Progress Note ---
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 MRI brain with numerous septic emboli which would explain vertigo, confusion, fevers over past few weeks repeat blood cultures drawn 02/15 were positive for MSSA repeat blood cultures on 02/17 show no growth thus far at 48 hours no fever for 48 hours, WBC down to 9k hopeful that his cultures will be sterile finally consult ID for recommendations -- need negative blood cultures, then place PICC, treat with nafcillin for 6 weeks will need to follow labs weekly can refer for follow up with ID as outpatient in a few weeks once he is discharged (2) Elevated troponin: Troponin upon admission 0.99, trending down no concern for ischemia at this time, he has endocarditis no wall motion changes on echo (3) Heart murmur: loudest at apex has mitral regurgitation from vegetation but also has that is severe (4) Vertigo: MRI brain had been arranged outpatient setting per PCP due to concerns regarding an acoustic neuroma. MRI brain 02/14 shows numerous septic emboli PT/OT consulted (5) Confusion: As noted above. related to septic emboli (6) Generalized weakness: Part of symptom complex (7) Sepsis: Empiric treatment as noted above continue Nafcillin no signs of sepsis at this time (8) Urinary incontinence: Unclear etiology. We will need assessment for BPH if not already performed. It infection, potential source for endocarditis and/or septic emboli. (9) Abnormal LFTs: Follow serial laboratories May be alcohol-related hepatitis B/C negative (10) Hypokalemia: low at 3.0 but improving continue 20mEq TID replacement (11) Alcohol use: Unclear actual volume of alcohol patient intakes. continue thiamine 100 mg p.o. daily, folic acid 1 mg p.o. daily and multivitamin daily (12) Severe aortic stenosis: noted on echo Admission and Anticipated Discharge Date Admission Date: February 14, 2020 Subjective patient doing well, no fever for 36 hours blood cultures still negative eating really well has some mild back pain Review of Systems Review of Systems: All systems reviewed & are unremarkable except as noted in Subjective Physical Exam Constitutional: WD/WN, vitals as above Neck: trachea midline, no thyromegaly Respiratory: normal respiratory effort, lungs clear to auscultation Cardiovascular: Rate/Rhythm: regular rate and regular rhythm Heart Sounds: normal S1, normal S2 and + murmur (systolic, louder at apex) Vessels: no JVD Extremities: normal capillary refill; no edema Gastrointestinal (Abdomen): normal bowel sounds, soft, nontender, no hepatosplenomegaly Musculoskeletal: no cyanosis or clubbing, extremities motor strength 5/5 Skin: no rashes, warm and dry Neurologic: patellar DTR's 2+ bilat, sensation intact and PERRL, EOMI, accommodation nl, no face palsy, no dysarthria Psychiatric: A+Ox3, euthymic affect Lymphatic: no cervical or axillary lymphadenopathy Results & Data Results & Data ([facility]) Vital Signs (Past 12 Hours) Vital Signs Temp Pulse Resp BP Pulse Ox 02/20/20 15:24 37.3 C 88 16 106/66 98 02/20/20 08:38 37.0 C 93 H 18 94/63 L 97 Laboratory Results Laboratory Results - last 24 hr 02/20/20 02/20/20 05:25 05:25 WBC 9.37 RBC 2.88 L Hgb 8.8 L Hct 26.9 L MCV 93.4 MCH 30.6 MCHC 32.7 RDW Std Deviation 47.1 H RDW Coeff of Arely 14.0 Plt Count 139 MPV 11.0 H Immature Gran % (Auto) 0.5 Neut % (Auto) 79.8 Lymph % (Auto) 10.2 Stewart % (Auto) 8.8 Eos % (Auto) 0.6 Baso % (Auto) 0.1 Neut # (Auto) 7.47 H Lymph # (Auto) 0.96 L Stewart # (Auto) 0.82 H Eos # (Auto) 0.06 Baso # (Auto) 0.01 Immature Gran # (Auto) 0.05 H Sodium 138 Potassium 3.2 L Chloride 107 Carbon Dioxide 25 Anion Gap 6.0 BUN 12 Creatinine 0.74 Est Cr Clr Drug Dosing 119.2 Est GFR ( Amer) 116.2 Est GFR (Non-Af Amer) 100.3 BUN/Creatinine Ratio 15.5 Glucose 96 Calcium 8.6 Medications Administered Current Inpatient Medications Acetaminophen (Acetaminophen 325 Mg Tab) 650 mg PO Q4H PRN PRN Reason: Pain or Fever Stop: 03/15/20 21:32 Last Admin: 02/20/20 09:48 Dose: 650 mg Documented by: Al Hydrox/Mg Hydrox/Simethicone (Aluminum/Magnesium Susp 30 Ml Udc) 15 ml PO Q4H PRN PRN Reason: Dyspepsia Stop: 03/15/20 21:32 Aspirin (Aspirin 81 Mg Ectab) 81 mg PO [facility] Stop: 03/16/20 08:59 Last Admin: 02/20/20 09:49 Dose: 81 mg Documented by: Folic Acid (Folic Acid 1 Mg Tab) 1 mg PO [facility] Stop: 03/16/20 08:59 Last Admin: 02/20/20 09:49 Dose: 1 mg Documented by: Heparin Sodium (Porcine) (Heparin Sod 5,000 Unit/0.5 Ml Vial) 5,000 units SQ Q12 [facility] Stop: 03/15/20 21:59 Last Admin: 02/20/20 09:49 Dose: 5,000 units Documented by: Nafcillin Sodium 2,000 mg/ (Dextrose) 108 mls @ 100 mls/hr IV Q4H [facility] Stop: 03/30/20 13:59 Last Admin: 02/20/20 18:07 Dose: 100 mls/hr Documented by: Magnesium Hydroxide (Magnesium Hydroxide Susp 30 Ml Udc) 30 ml PO Q12H PRN PRN Reason: Constipation Stop: 03/15/20 21:32 Last Admin: 02/18/20 11:53 Dose: 30 ml Documented by: Multivitamins/Minerals (Cerovite Adv Formula Tab) 1 tab PO [facility] Stop: 03/16/20 08:59 Last Admin: 02/20/20 09:49 Dose: 1 tab Documented by: Ondansetron HCl (Ondansetron Inj 2 Mg/Ml 2 Ml Vial) 4 mg IV Q6H PRN PRN Reason: Nausea Stop: 03/15/20 21:32 Potassium Chloride (Potassium Chloride 20 Meq Tabcr) 20 meq PO TID [facility] Stop: 03/19/20 13:59 Last Admin: 02/20/20 14:04 Dose: 20 meq Documented by: Thiamine HCl (Thiamine Hcl 100 Mg Tab) 100 mg PO [facility] Stop: 03/16/20 08:59 Last Admin: 02/20/20 09:48 Dose: 100 mg Documented by: PG Care Time/CCT Total # of Minutes Spent Total Time Spent with Patient: Total time spent is greater than 50% in coordination of care (as documented) at patient's floor/unit and/or counseling p atient: Coding Level of Care Code 32378 Subseq Hosp Care Lvl 2 Diagnoses Endocarditis I38 Elevated troponin R77.8 Heart murmur R01.1 Vertigo R42 Confusion R41.0 Generalized weakness R53.1 Sepsis A41.9; R65.20 Sepsis acute organ dysfunction status: with acute organ dysfunction Sepsis type: sepsis due to unspecified organism Severe sepsis acute organ dysfunction type: unspecified Severe sepsis shock status: without septic shock Urinary incontinence R32 Abnormal LFTs R94.5 Hypokalemia E87.6 Alcohol use Z72.89 Severe aortic stenosis I35.0 (1) Sepsis Sepsis acute organ dysfunction status: with acute organ dysfunction Sepsis type: sepsis due to unspecified organism Severe sepsis acute organ dysfunction type: unspecified Severe sepsis shock status: without septic shock Qualified Code(s): A41.9 - Sepsis, unspecified organism; R65.20 - Severe sepsis without septic shock
[2020-02-21] MEDS: NAFCILLIN SODIUM 2,000 MG in DEXTROSE 5% 100 ML IV SCH ×5 (01:38→17:14)
[2020-02-21] MEDS: ACETAMINOPHEN 325 MG TAB PO PRN ×2 (08:43→17:19)
[2020-02-21] MEDS: ASPIRIN 81 MG ECTAB PO SCH (08:44)
[2020-02-21] MEDS: THIAMINE HCL 100 MG TAB PO SCH (08:45)
[2020-02-21] MEDS: FOLIC ACID 1 MG TAB PO SCH (08:45)
[2020-02-21] MEDS: CEROVITE ADV FORMULA TAB PO SCH (08:45)
[2020-02-21] MEDS: POTASSIUM CHLORIDE CRTAB 20 MEQ TABCR PO SCH ×2 (08:45→14:17)
[2020-02-21] MEDS: HEPARIN SOD 5,000 UNIT/0.5 ML VIAL SQ SCH (08:47)
[2020-02-21] MEDS: traMADol HCL 50 MG TABLET PO PRN ×3 (11:33→19:15)
[2020-02-21] MEDS ORDERED: FUROSEMIDE 40 MG in SYRINGE 0 ML IV ONE (12:00)
--- NOTE | 2020-02-21 15:26 | Discharge Summary ---
Date of Service February 21, 2020 Admission HPI Per Admitting Provider The patient is a 59-year-old male with a past medical history including basal cell skin cancer, central positional vertigo, urinary incontinence and osteoarthritis of the right knee. He reports that for approximately 1 month he has had persistent and intermittently worsening symptoms of vertigo. Over the past 48 hours he has experienced worsening confusion, generalized muscle aches and body aches, generalized weakness and fatigue. He denies any recent travels or sick exposures. He reports that alcohol use is twice weekly. He denies any tick bites. He has not had any symptoms prior to the past month. He did see his PCP, who had arranged for an MRI of brain to be done sometime this week. In the emergency department, work-up included abnormal labs: AST 108, troponin 0 0.997, albumin 2.7, pro-Bull 7.15, potassium 3.3, sodium 131. Patient was COVID-[address] of the head without contrast was normal. 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 In the emergency department, patient was given a banana bag, vancomycin 1750 mg IV, Zosyn 4.5 g IV, Tylenol 1 g IV, Toradol 15 mg IV, Lorazepam 1 mg IV and normal saline boluses of 2 L. 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, severe mitral regurgitation, developing heart failure Discharge Exam Constitutional WD/WN, vitals as above Neck trachea midline, no thyromegaly Respiratory normal respiratory effort, lungs clear to auscultation Cardiovascular Rate/Rhythm: regular rate and regular rhythm Heart Sounds: normal S1, normal S2 and + murmur (systolic, louder at apex) Vessels: no JVD Extremities: normal capillary refill and + edema (pitting to the knees bilate rally) Gastrointestinal (Abdomen) normal bowel sounds, soft, nontender, no hepatosplenomegaly Musculoskeletal no cyanosis or clubbing, extremities motor strength 5/5 Skin no rashes, warm and dry Neurologic patellar DTR's 2+ bilat, sensation intact and PERRL, EOMI, accommodation nl, no face palsy, no dysarthria Psychiatric A+Ox3, euthymic affect Lymphatic no cervical or axillary lymphadenopathy Discharge Data Allergies Allergy/AdvReac Type Severity Reaction Status Date / Time No Known Allergies Allergy Verified 02/10/20 11:31 Consultations 02/14/20 19:04 ED Decision to Admit Stat 02/14/20 21:33 Consult Cardiology Routine Consult Case Management - Discharge Planning Routine 02/15/20 15:10 Consult Infectious Diseases Routine 02/21/20 15:13 Burn CD for patient Stat Ordered Studies 02/14/20 16:47 CT head/brain wo con Stat 02/14/20 16:57 CT angio head w con Stat CT angio neck with con Stat 02/14/20 18:58 CT abd pelvis wo con Urgent 02/15/20 09:18 MR brain wo/w con Urgent Hospital Course (1) Endocarditis: diagnosis based on MSSA positive blood cultures and vegetation on posterior mitral valve on 02/14 treated with Nafcillin 12gm/day total, currently on 2gm IV q4 since 02/14 MRI brain with numerous septic emboli which would explain vertigo, confusion, fevers over past few weeks of note, his [employer] [place] symptoms have been completely resolved for a week now repeat blood cultures drawn 02/15 were positive for MSSA repeat blood cultures on 02/17 showed no growth at 48 hours but now have gram positive cocci in clusters final results from cultures from 02/17 still pending would suggest repeating blood cultures at [facility] no fever for 72 hours, WBC down to 9k will transfer to [facility] [place] based on repeat echo on 02/20 with worsening mitral reg urgitation continue Nafcillin but will need ID consult, probably need more than one antibiotic at this point spoke with cardiothoracic surgeon Dr. Franz, no emergent need for valve replacement but will need one in future, prefers sterile blood cultures first (2) Mitral regurgitation: repeat echo on 02/20 with 3x2cm mass on posterior mitral valve consistent with vegetation the E wave was measured at 3.2, increased from 1.7 on 02/14 proj engineer suggests severe mitral regurgitation developing peripheral edema, lungs are clear (3) Heart failure: developing significant peripheral edema over past 48 hours due to severe and severe mitral regurgitation gave a dose of Lasix 40mg IV this morning, excellent response suspect Lasix 40mg IV BID will be sufficient but defer to cardiology at [facility] [place] (4) Elevated troponin: Troponin upon admission 0.99, trended down no concern for ischemia at this time, he has endocarditis no wall motion changes on echo will need left heart cath prior to valve, can be done at [facility] [place] (5) Vertigo: MRI brain 02/14 shows numerous septic emboli PT/OT consulted, doing well, no REAL E[employer] [place] symptoms (6) Confusion: As noted above. related to septic emboli resolved (7) Generalized weakness: improving, PT/OT consulted (8) Sepsis: Empiric treatment as noted above continue Nafcillin no signs of sepsis at this time (9) Urinary incontinence: Unclear etiology. (10) Abnormal LFTs: improved hepatitis B/C negative (11) Hypokalemia: low at 3.0 but improving continue 20mEq TID replacement may need more now that he will be on lasix (12) Alcohol use: Unclear actual volume of alcohol patient intakes. continue thiamine 100 mg p.o. daily, folic acid 1 mg p.o. daily and multivitamin daily (13) Severe aortic stenosis: noted on echo certainly could be making mitral regurgitation worse (14) DVT prophylaxis: has been on Heparin 5000 q12 since time of admission Total Time Total Time Spent Total Time Spent (In Minutes): 60 minutes Total Time Includes: Examination of the Patient, Discharge Planning, Medication Reconciliation and Communication With Other Providers (Dr. Ritter, physicians at [facility] over the phone for transfer) Discharge Plan Discharge Items Patient Disposition: Transfer Acute Care Hospital Reason For Visit: SEPSIS, POSSIBLE ENDOCARDITIS Discharge Diagnosis: MSSA bacteremia Mitral valve endocarditis, posterior leaflet Severe mitral regurgitation Acute heart failure Vertigo/confusion due to septic emboli to brain Condition on Discharge: Serious Activity: Resume your previous activity Non-emergency contact: Primary Care Provider Call non-emergency contact if: you have any medication questions Follow-up/Referrals: Sebastian Greene MD [Primary Care Provider] - Diet: Carb Consistent or DM2 and Heart Healthy Fluids: 1500ml (6 cups) Addtl Attending Provider Instructions: transfer to [facility] will be under care of the Internal Medicine service with consults to ID, cardiology, cardiothoracic surgery Pending Studies at Discharge: No Stand-Alone Forms: My [facility] Skilled Items Patient informed of condition?: Yes DNR: No Discharge Level of Care: Other Communicable Disease: No Discharge Prognosis: Deteriorating Lines: Peripheral IV Urinary Catheter: No Medications and DC Order Prescriptions: Discontinued sulfamethoxazole-trimethoprim 800-160 mg tablet 1 tab PO BID 14 Days Qty: 28 RF: 0 ibuprofen [Advil] 100 mg Tablet 400 mg PO Q6H PRN (Reason: Fever Or Pain) RF: 0 Discharge Orders: Discharge Order (Routine); Ordered 02/21/20 Ordered By: Edmond Smyth Admission Data Admit Date/Time: 02/14/20 20:08 Attending Provider: Edmond Smyth Admit Provider: Ab Boyd Primary Care Provider: Sebastian Greene Other Providers: Ab Boyd ; Gallito De La Rosa ; Tj Villasenor ; Tiana Fraser ; Dwayne Moe I. ; Aditya Gray II ; Dilcia Porras ; John Maya ; [facility] Coding Level of Care Code D/C Day Management >30 mins Diagnoses Endocarditis I38 Mitral regurgitation I34.0 Heart failure I50.9 Elevated troponin R77.8 Vertigo R42 Confusion R41.0 Generalized weakness R53.1 Sepsis A41.9; R65.20 Sepsis acute organ dysfunction status: with acute organ dysfunction Sepsis type: sepsis due to unspecified organism Severe sepsis acute organ dysfunction type: unspecified Severe sepsis shock status: without septic shock Urinary incontinence R32 Abnormal LFTs R94.5 Hypokalemia E87.6 Alcohol use Z72.89 Severe aortic stenosis I35.0 DVT prophylaxis Z29.9
== END 2020-02-21 19:45 | disposition short-term general hospital (02) | DRG 871 ==
LOC: ED 16:19 → SUATTDRO 20:08 → 2S 20:08 → 3E 02-17 10:17

== ENCOUNTER 2023-12-05 11:25 | Inpatient (IN) ==
[2023-12-05 12:11] LABS: Basophils # (auto) 0.02 K/uL (0.00-0.20); Basophils % (auto) 0.3 %; Eosinophils # (auto) 0.29 K/uL (0.00-0.50); Eosinophils % (auto) 4.4 %; Hematocrit (blood only) 34.2 % (42.0-52.0); Hemoglobin 10.3 g/dl (14.0-18.0); Immature Granulocytes # (auto) 0.02 K/uL (0.01-0.20); Immature Granulocytes % (auto) 0.3 %; Lymphocytes # (auto) 0.64 K/uL (1.20-3.40); Lymphocytes % (auto) 9.6 %; Mean Corpuscular Hgb Conc 30.1 g/dL (32.0-36.0); Mean Corpuscular Volume 92.9 fL (80.0-100.0); Mean Platelet Volume 11.2 fL (9.4-12.4); Neutrophils # (auto) 5.07 K/uL (1.40-6.50); Neutrophils % (auto) 76.4 %; Platelet Count 198 K/uL (130-400); RDW Coefficient of Variation 16.5 % (11.5-14.5); RDW Standard Deviation 57.1 fL (36.4-46.3); Red Blood Count 3.68 M/uL (4.70-6.10); White Blood Count 6.64 K/ul (4.8-10.8)
[2023-12-05 12:24] LABS: Alanine Aminotransferase 9 U/L (7-52); Albumin Globulin Ratio 1.3 (0.9-2); Albumin Level 4.2 gm/dl (3.4-5.0); Alkaline Phosphatase 85 U/L (34-104); Anion Gap 11 (3-11); Aspartate Aminotransferase 18 U/L (13-39); Blood Urea Nitrogen 37 mg/dl (6-23); Calcium 9.8 mg/dl (8.6-10.3); Carbon Dioxide 27 mmol/L (21-32); Chloride 99 mmol/L (98-107); Est GFR (African American) 46.3 ml/min; Globulin 3.2 gm/dl (2.5-4.0); Glucose 81 mg/dl (70-99(Fasting)); Lipase 13 U/L (11-82); Potassium 4.2 mmol/L (3.5-5.1); Sodium 137 mmol/L (136-145); Total Protein 7.4 gm/dl (6.0-8.3)
[2023-12-05 12:30] LABS: Troponin I High Sensitivity 42.4 pg/ml (0-20)
--- NOTE | 2023-12-05 12:37 | XRay Report ---
XR chest 1V portable HISTORY: Chest pain, nonspecific COMPARISON: Chest 02/14/2020. FINDINGS: No pneumothorax. There are poststernotomy changes and cardiac valve prostheses. The heart i s mildly enlarged. There are calcifications within the aortic knob. There is mild central pulmonary v ascular congestion without overt edema. Small right pleural effusion and right basilar densities are noted. IMPRESSION: 1. Cardiomegaly with mild congestive change. 2. Small right pleural effusion with nonspecific right basilar densities. This favors atelectasis fro m the pleural effusion. ACT 112: Negative or not required by law. Electronically signed by: Jv Cobos M.D. 12/05/2023 12:36 PM
--- NOTE | 2023-12-05 12:40 | Emergency Department Note ---
Impression & Plan Anasarca, USHA (acute kidney injury), Pleural effusion, Anemia ED Provider Note NAME: GUSTAVO DODD AGE: 63 SEX: M : 1960 ARRIVES VIA: Walk-In INFORMANT: Patient, the patient's significant other ED PROVIDER(S): Galltio Guaman DO CHIEF COMPLAINT: Swelling HPI: The patient is a 63-year-old male who has a history of endocarditis who presented to the emergency department for an evaluation of lower extremity swelling. The patient's been having worsening symptoms over the course last few weeks. He went to see his audit partner today. He was felt to be suffering from severe volume overload. He was sent to the emergency department for further evaluation and likely inpatient management. The patient himself denies having any chest pain but has noted some shortness of breath especially with exertion as well as orthopnea. He denies having any fever. He is noticed abdominal swelling as well. The patient states has been compliant with his outpatient medications. ROS: See above HPI for pertinent positives & negatives. A total of 10 systems reviewed and were otherwise negative. PAST MEDICAL HISTORY: See Below PAST SURGICAL HISTORY: See Below FAMILY HISTORY: See Below SOCIAL HISTORY: See Below HOME MEDICATIONS: See Below ALLERGIES: See Below VITALS: See Below PHYSICAL EXAMINATION: GENERAL: Patient is awake alert in no acute distress patient is resting comfortably and showing no signs of anxiety EYES: The conjunctivae are clear. The pupils are round and reactive. EARS, NOSE, MOUTH AND THROAT: The nose is without any evidence of any deformity. Mucous membranes are moist. Tongue is midline. NECK: The neck is nontender and supple. RESPIRATORY: Diminished breath sounds are noted both bases. There were rales at both bases. There is no tachypnea or conversational dyspnea. CARDIOVASCULAR: Irregular heart sounds were noted to auscultation. Mild systolic murmur was appreciated. There is no MUSCULOSKELETAL/EXTREMITIES: There is no evidence of gross deformity full range of motion is noted in the hips and shoulders. SKIN: Chronic venous stasis changes were noted to both lower extremities. There is pedal edema noted in both lower extremities. NEUROLOGIC: Patient is awake alert and oriented x3 MEDICAL DECISION MAKING: The patient is a 63-year-old male who presented to the emergency department for an evaluation of difficulty with leg swelling and weakness. The patient has a history of a valve replaced in the past because of endocarditis. The patient was seen in his audit partner office today and sent to the emergency department for further evaluation. The patient was experiencing anasarca. The patient was felt to be a candidate for inpatient management for his volume overload. I discussed the patient's laboratory and radiographic studies with him. I discussed his condition with the on-call [facility] Hospitalist group. They have agreed to evaluate the patient in the emergency department for further management and disposition. Triage Nursing notes reviewed. Prior medical records reviewed Vital Signs: reviewed and remarkable for no significant abnormalities Differential diagnosis: Reactive airway disease, pneumonia, pneumothorax, COPD, CHF, infections, cardiac ischemia, pulmonary embolism, musculoskeletal, gastrointestinal, as well as other pathologies. ER treatment provided: See below Diagnostics interpreted by me: ECG: EKG was obtained in the emergency department. My interpretation is atrial fibrillation at 85 bpm. No PVCs were noted. Low voltage was noted throughout. Nonspecific ST segment abnormalities are noted. This was compared to a tracing from February 16, 2020. The changes are new compared to the previous tracing. Cardiac Monitoring: An order was placed for continuous cardiac monitoring. The monitor shows a rate of 102 bpm with atrial fibrillation. Laboratory studies: As stated above and show below. Imaging studies: See below. Radiographic imaging was reviewed by myself Consultation(s): I discussed this case with Soumya who is on-call for the [facility] Hospitalist group. Past Med/Surg History Problem List (Updated 12/05/23 @ 13:43 by Jazmín Cobb PA-C) USHA (acute kidney injury) Scrotal erythema Chronic venous stasis Chronic atrial fibrillation Acute on chronic right-sided heart failure Prerenal azotemia Hypokalemia Hypokalemia Abnormal breath sounds Cerebellar ataxia Polyuria Bacteremia due to Enterococcus H/O heart valve replacement with bioprosthetic valve Gait instability RLS (restless legs syndrome) Excessive daytime sleepiness Screening PSA (prostate specific antigen) Nocturia Bacteremia due to Staphylococcus aureus (Acute 02/22/20) Cirrhosis of liver (Acute 02/28/20) Hematochezia (Acute 02/24/20) History of aortic valve replacement (Acute 03/07/20) History of mitral valve replacement (Acute 03/07/20) Hypervolemia (Acute 03/01/20) Injury of kidney (Acute 03/01/20) Intracranial septic embolism (Acute 02/22/20) Sleep apnea in adult Malnutrition DVT prophylaxis Heart failure Mitral regurgitation Severe aortic stenosis Endocarditis Acute hypokalemia (Acute) Alcohol use Generalized weakness Heart murmur Hypokalemia Basal cell carcinoma Screening PSA (prostate specific antigen) Central positional vertigo Osteoarthritis of knee Medical History Embolic stroke involving cerebellar artery Acute hypoxemic respiratory failure (03/01/20) Confusion Abnormal LFTs Elevated troponin Cellulitis Sepsis Vertigo Urinary incontinence Benign essential hypertension Asthma Obstructive sleep apnea Surgical History History of vasectomy Family History Father Heart disease Hypertension, Onset Age: 50 Kidney disease, Onset Age: 30 Kidney stones as young man Myocardial infarction Passed in 2005 with heart attack age 78 Brother Asthma Prostate cancer, Onset Age: 61 Treated Radiation and hormonal. Cancer younger brother, skin cancer Mother Cancer Skin cancer Brother Cancer skin cancer Denies family history of Ovarian cancer Diabetes Breast cancer Lung cancer Colorectal cancer Stroke Social History Smoking Status: Never smoker Second Hand Exposure: No; Do You Dip or Chew Tobacco: No; Hx Alcohol Use: Yes Alcohol type: beer Alcohol Intake Frequency: 2-4 x/Month Hx Substance Use: No Preferred Language: Irish Communication Ability: Effective Communication Ability Comment: PALA Hearing Ability: Hard of Hearing Securities Attorney Required: No Beliefs That Will Affect Care: None marital status: Current Living Situation: Spouse current occupational status: employed 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 How many Children do You have: 0 How many Children do You have Comment: 1 step child Feels Safe at Home: Yes Childhood Exposure to Second-Hand Smoke: No Seatbelt Use: always Sunscreen Use: Yes Assistive Devices: Glasses Allergies Allergies Allergy/AdvReac Type Severity Reaction Status Date / Time amoxicillin Allergy Intermediate Rash Verified 12/05/23 13:07 cyclobenzaprine AdvReac Intermediate Rash Verified 12/05/23 13:07 Home Meds Home Medications Medication Instructions Recorded Confirmed apixaban 5 mg tablet 5 mg PO DAILY 12/05/23 12/05/23 aspirin 81 mg capsule 81 mg PO DAILY 12/05/23 12/05/23 atenolol 50 mg tablet 50 mg PO BID 12/05/23 12/05/23 chlorthalidone 25 mg tablet 50 mg PO MOWEFR 12/05/23 12/05/23 cholecalciferol (vitamin D3) 125 125 mcg PO DAILY 12/05/23 12/05/23 mcg (5,000 unit) tablet (Vitamin D3) coenzyme Q10 100 mg capsule 100 mg PO DAILY 12/05/23 12/05/23 (CoQ-10) furosemide 40 mg tablet 40 mg PO DAILY 12/05/23 12/05/23 magnesium 100 mg capsule 100 mg PO DAILY 12/05/23 12/05/23 olmesartan 20 mg tablet 20 mg PO DAILY 12/05/23 12/05/23 potassium chloride 20 mEq 20 meq PO WEFR 12/05/23 12/05/23 tablet,extended release Results & Data (ED) Vital Signs Vital Signs - 24 hr 12/05/23 11:29 12/05/23 12:41 12/05/23 12:43 Temperature 36.3 C L Temperature Source Oral Pulse Rate 99 H 75 Pulse Rate [Apical] 75 Pulse Rhythm Regular Pulse Rhythm [Apical] Regular Pulse Strength [Apical] Normal Respiratory Rate 24 Respiratory Effort / Characteristics Non-Labored Spontaneous Non-Labored Spontaneous Respiratory Depth Normal Normal Blood Pressure 131/84 Blood Pressure [Right Arm] 133/77 Blood Pressure Mean 99 Blood Pressure Mean [Right Arm] 95 Blood Pressure Position [Right Arm] Semi-fowlers Pulse Oximetry 95 93 94 Oxygen Delivery Method Room Air Room Air Room Air Sepsis Recent Fever Within 48 Hours No Sepsis New/Unexplained Change in Mental Status N/A Sepsis Action Taken by Nursing No Action Required 12/05/23 13:03 Temperature Temperature Source Pulse Rate 102 H Pulse Rate [Apical] Pulse Rhythm Pulse Rhythm [Apical] Pulse Strength [Apical] Respiratory Rate Respiratory Effort / Characteristics Respiratory Depth Blood Pressure Blood Pressure [Right Arm] Blood Pressure Mean Blood Pressure Mean [Right Arm] Blood Pressure Position [Right Arm] Pulse Oximetry Oxygen Delivery Method Sepsis Recent Fever Within 48 Hours Sepsis New/Unexplained Change in Mental Status Sepsis Action Taken by Shelter Medications Current Medication List: was personally reviewed by me Laboratory Data Attestation: I reviewed the patient's lab results. 12/05/23 11:53 12/05/23 11:53 Lab Results 12/05/23 12/05/23 Range/Units 11:53 12:15 WBC 6.64 (4.8-10.8) K/ul RBC 3.68 L (4.70-6.10) M/uL Hgb 10.3 L (14.0-18.0) g/dl Hct 34.2 L (42.0-52.0) % MCV 92.9 (80.0-100.0) fL MCH 28.0 (25.0-34.0) pg MCHC 30.1 L (32.0-36.0) g/dL RDW Std Deviation 57.1 H (36.4-46.3) fL RDW Coeff of Arely 16.5 H (11.5-14.5) % Plt Count 198 (130-400) K/uL MPV 11.2 (9.4-12.4) fL Immature Gran % (Auto) 0.3 % Neut % (Auto) 76.4 % Lymph % (Auto) 9.6 % [place] % (Auto) 9.0 % Eos % (Auto) 4.4 % Baso % (Auto) 0.3 % Neut # (Auto) 5.07 (1.40-6.50) K/uL Lymph # (Auto) 0.64 L (1.20-3.40) K/uL [place] # (Auto) 0.60 H (0.11-0.59) K/uL Eos # (Auto) 0.29 (0.00-0.50) K/uL Baso # (Auto) 0.02 (0.00-0.20) K/uL Immature Gran # (Auto) 0.02 (0.01-0.20) K/uL PT Cancelled INR Cancelled APTT Cancelled PTT Ratio Cancelled Sodium 137 (136-145) mmol/L Potassium 4.2 (3.5-5.1) mmol/L Chloride 99 (98-107) mmol/L Carbon Dioxide 27 (21-32) mmol/L Anion Gap 11 (3-11) BUN 37 H (6-23) mg/dl Creatinine 1.76 H (0.6-1.4) mg/dl Est Cr Clr Drug Dosing Not Reportable Est GFR ( Amer) 46.3 ml/min Est GFR (Non-Af Amer) 40.0 ml/min BUN/Creatinine Ratio 21.0 H (10-20) Glucose 81 (70-99(Fasting)) mg/dl Calcium 9.8 (8.6-10.3) mg/dl Total Bilirubin 1.0 (0.2-1.0) mg/dl AST 18 (13-39) U/L ALT 9 (7-52) U/L Alkaline Phosphatase 85 (34-104) U/L Troponin I High Sens 42.4 H (0-20) pg/ml B-Natriuretic Peptide 1079 H (0-100) pg/ml Total Protein 7.4 (6.0-8.3) gm/dl Albumin 4.2 (3.4-5.0) gm/dl Globulin 3.2 (2.5-4.0) gm/dl Albumin/Globulin Ratio 1.3 (0.9-2) Lipase 13 (11-82) U/L Urine Color Yellow Urine Appearance Clear (Clear) Urine pH 5.5 (4.5-7.5) Ur Specific [place] 1.008 (1.000-1.030) Urine Protein Negative (Negative) Urine Glucose (UA) Negative (Negative) Urine Ketones Negative (Negative) Urine Blood Trace H (Negative) Urine Nitrite Negative (Negative) Urine Bilirubin Negative (Negative) Urine Urobilinogen Negative (Negative) Ur Leukocyte Esterase Negative (Negative) Urine WBC (Auto) 0-5 (0-5) /hpf Urine RBC (Auto) 3-5 H (0-2) /hpf U Hyaline Cast (Auto) 0-2 (0-2) /lpf U Epithel Cells (Auto) 0-2 (0-2) /hpf Urine Bacteria (Auto) None Seen (None Seen) Administered Medications Discontinued Medications Furosemide (Furosemide 40 Mg/4 Ml Vial) 40 mg IV ONE ONE Stop: 12/05/23 13:24 Last Admin: 12/05/23 13:32 Dose: 40 mg Documented By: JULIAN Imaging Data Attestation: I personally reviewed and interpreted this imaging study as follows: My Impression: 1 view chest x-ray was obtained in the emergency department. My interpretation is right-sided pleural effusion, final report below. Radiologist's Impression: Chest X-Ray 08/01/24 11:33 XR chest 1V portable HISTORY: Chest pain, nonspecific COMPARISON: Chest 02/14/2020. FINDINGS: No pneumothorax. There are poststernotomy changes and cardiac valve prostheses. The heart is mildly enlarged. There are calcifications within the aortic knob. There is mild central pulmonary vascular congestion without overt edema. Small right pleural effusion and right basilar densities are noted. IMPRESSION: 1. Cardiomegaly with mild congestive change. 2. Small right pleural effusion with nonspecific right basilar densities. This favors atelectasis from the pleural effusion. ACT 112: Negative or not required by law. Electronically signed by: Jv Cobos M.D. 12/05/2023 12:36 PM Discharge Plan Visit Data Chief Complaint: Referred by Doctor Stated Complaint: REF BY DOC, FLUID RETENTION, RELATED HEART ISSUES ED Provider: Gallito Guaman Discharge Problem: Anasarca, USHA (acute kidney injury), Pleural effusion, Anemia Patient Disposition: Being Evaluated by Hospitalist Forms Stand Alone Forms: [facility] Prescriptions Prescriptions: No Action furosemide 40 mg Tablet 40 mg PO DAILY chlorthalidone 25 mg Tablet 50 mg PO MOWEFR magnesium 100 mg Capsule 100 mg PO DAILY atenolol 50 mg Tablet 50 mg PO BID olmesartan 20 mg Tablet 20 mg PO DAILY coenzyme Q10 [CoQ-10] 100 mg Capsule 100 mg PO DAILY cholecalciferol (vitamin D3) [Vitamin D3] 125 mcg (5,000 unit) Tablet 125 mcg PO DAILY apixaban 5 mg Tablet 5 mg PO DAILY potassium chloride 20 mEq Tablet Extended Release 20 meq PO MOWEFR aspirin 81 mg Capsule 81 mg PO DAILY Referrals Referrals: PCP,NO [Physician] -
[2023-12-05 12:46] LABS: Appearance Urine Clear (Clear); Bacteria Urine Automated None Seen (None Seen); Bilirubin Urine Negative (Negative); Blood Urine Trace (Negative); Cast Urine Automated 0-2 /lpf (0-2); Color Urine Yellow; Epithelial Cell Urine Auto 0-2 /hpf (0-2); Glucose Urine UA Negative (Negative); Ketones Urine Negative (Negative); Leukocyte Esterase Urine Negative (Negative); Nitrite Urine Negative (Negative); Protein Urine Negative (Negative); Specific Gravity Urine 1.008 (1.000-1.030); Urobilinogen Urine Negative (Negative); WBC Urine Automated 0-5 /hpf (0-5); pH Urine 5.5 (4.5-7.5)
--- NOTE | 2023-12-05 12:49 | History & Physical Report ---
Date of Service December 05, 2023 Assessment & Plan (1) Acute on chronic right-sided heart failure: (2) History of mitral valve replacement: (3) History of aortic valve replacement: (4) Chronic atrial fibrillation: (5) Chronic venous stasis: (6) Scrotal erythema: (7) USHA (acute kidney injury): Plan This is a 63-year-old male who has significant past medical history of mitral valve endocarditis with both Staph aureus and Enterococcus facialis bacteremia with large mitral vegetation, leaflet perforation, perivalvular abscess along with subsequent aortic valve stenosis in which pt underwent bioprosthetic MVR and AVR in Feb, chronic atrial fibrillation, 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 Acute on chronic right-sided heart failure history of bioprosthetic mitral and aortic valve replacements history of endocarditis elevated troponin admit to PCU obtain echocardiogram to evaluate prosthesis and overall heart function Echavarria catheter placed, strict I's and O's, daily standing weights, FR 1800 mL give Lasix 40mg IV x 1 now and start 40mg IV BID, may need titrated based on response recent TSH 4.93 and t4 1.3 cycle trops, likely demand ischemia in setting of volume overload USHA ? if component of CKD, cr elevated > 1.4 since September pt also reports taking 6 advil daily due to arthritis avoid nephrotoxic agents, monitor renal function may improve with diuresis, consider nephro consult if worsening Chronic Atrial fibrillation continue atenolol, obtain echo continue apixaban, pt reports only taking once daily due to increased bleeding with twice daily, will administer twice daily while inpt and monitor Chronic ambulatory dysfunction Hx of CVA due to septic emboli at baseline pt is able to self transfer, but mostly stays in wheel chair PT/OT Scrotal Edema Scrotal wound Chronic b/l venous stasis change consult wound care VENUS on CPAP at HS: bringing in machine DVT ppx: Eliquis FULL CODE PCP: Yuriy Dempsey Dispo: admit to PCU for IV diuresis Pt was seen and examined in collaboration with Dr. Liang, please see addendum A total of 76 minutes was spent coordinating, documenting, and providing care for this patient excluding time spent in the performance of separately billed services. This included personally viewing all current laboratories and imaging studies, medication reconciliation, outpatient chart review, and discussion with specialists. 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 He just recently establish with new primary care provider Yuriy Roselyn. he was seen in clinic today by Dr. Young. His report was reviewed. Postoperatively from his valve replacements he followed with [facility] cardiology and those reports described past intolerance to loop diuretics resulting in nausea and vomiting although patient has most recently been on Lasix for the last few days without these such symptoms. He also has been maintained on chlorthalidone 50 mg 3 times a week. He states over the last year he notes increased lower extremity swelling. He does not monitor his weights but states, "if you put 2 and 2 together I have likely gained weight." He complains of shortness of breath at rest as well as with exertion, orthopnea and has been required to sleep with his head elevated for the last 4 months. He also reports significant scrotal swelling, pain and redness. He has been using [id number] creams and ointments without much relief. In clinic patient today was noted to be significantly edematous with anasarca and was referred to the ED for admission and IV diuresis. In ED patient was remained hemodynamically stable and he is saturating without oxygen supplementation. Lab work notable for H&H 10.3 and 34.2, BUN 37, creatinine 1.76, troponin 42.4, BNP 1079 and chest x-ray that revealed cardiomegaly with mild vascular congestion and small right pleural effusion. His medications were reviewed and reconciled. He reports taking his medications daily. He currently is maintained on Eliquis once a day. He states when he took it twice a day this causes significant bleeding and therefore he will not take it twice a day. He has also been maintained on aspirin therapy. He does not smoke or drink alcohol. His is at bedside who also helps elicit history. At baseline patient is able to do self transfers but mostly remains in a wheelchair. He also reports mostly been incontinent of urine and states this has been due to his history of stroke. He last moved his bowels this morning. He reports he has severe osteoarthritis and balance dysfunction. Because of this he utilizes advil 6 tabs daily. Allergies Allergy/AdvReac Type Severity Reaction Status Date / Time amoxicillin Allergy Intermediate Rash Verified 12/05/23 13:07 cyclobenzaprine AdvReac Intermediate Rash Verified 12/05/23 13:07 Home Medications Medication Instructions Recorded Confirmed Type apixaban 5 mg tablet 5 mg PO DAILY 12/05/23 12/05/23 History aspirin 81 mg capsule 81 mg PO DAILY 12/05/23 12/05/23 History atenolol 50 mg tablet 50 mg PO BID 12/05/23 12/05/23 History chlorthalidone 25 mg tablet 50 mg PO MOWEFR 12/05/23 12/05/23 History cholecalciferol (vitamin D3) 125 125 mcg PO DAILY 12/05/23 12/05/23 History mcg (5,000 unit) tablet (Vitamin D3) coenzyme Q10 100 mg capsule 100 mg PO DAILY 12/05/23 12/05/23 History (CoQ-10) furosemide 40 mg tablet 40 mg PO DAILY 12/05/23 12/05/23 History magnesium 100 mg capsule 100 mg PO DAILY 12/05/23 12/05/23 History olmesartan 20 mg tablet 20 mg PO DAILY 12/05/23 12/05/23 History potassium chloride 20 mEq 20 meq PO MOWEFR 12/05/23 12/05/23 History tablet,extended release Past Med/Surg History Problem List (Updated 12/05/23 @ 15:32 by John Wallace) Sleep apnea History of endocarditis USHA (acute kidney injury) Scrotal erythema Chronic venous stasis Chronic atrial fibrillation Acute on chronic right-sided heart failure Prerenal azotemia Hypokalemia Hypokalemia Abnormal breath sounds Cerebellar ataxia Polyuria Bacteremia due to Enterococcus H/O heart valve replacement with bioprosthetic valve Gait instability RLS (restless legs syndrome) Excessive daytime sleepiness Screening PSA (prostate specific antigen) Nocturia Bacteremia due to Staphylococcus aureus (Acute 02/22/20) Cirrhosis of liver (Acute 02/28/20) Hematochezia (Acute 02/24/20) History of aortic valve replacement (Acute 03/07/20) History of mitral valve replacement (Acute 03/07/20) Hypervolemia (Acute 03/01/20) Injury of kidney (Acute 03/01/20) Intracranial septic embolism (Acute 02/22/20) Sleep apnea in adult Malnutrition DVT prophylaxis Heart failure Mitral regurgitation Severe aortic stenosis Endocarditis Acute hypokalemia (Acute) Alcohol use Generalized weakness Heart murmur Hypokalemia Basal cell carcinoma Screening PSA (prostate specific antigen) Central positional vertigo Osteoarthritis of knee Medical History Embolic stroke involving cerebellar artery Acute hypoxemic respiratory failure (03/01/20) Confusion Abnormal LFTs Elevated troponin Cellulitis Sepsis Vertigo Urinary incontinence Benign essential hypertension Asthma Obstructive sleep apnea Surgical History History of vasectomy Family History Father Heart disease Hypertension, Onset Age: 50 Kidney disease, Onset Age: 30 Kidney stones as young man Myocardial infarction Passed in 2005 with heart attack age 78 Brother Asthma Prostate cancer, Onset Age: 61 Treated Radiation and hormonal. Cancer younger brother, skin cancer Mother Cancer Skin cancer Brother Cancer skin cancer Denies family history of Ovarian cancer Diabetes Breast cancer Lung cancer Colorectal cancer Stroke Social History Smoking Status: Never smoker Second Hand Exposure: No; Do You Dip or Chew Tobacco: No; Hx Alcohol Use: No Hx Substance Use: No Preferred Language: [place] Communication Ability: Effective Communication Ability Comment: [place] Hearing Ability: Hard of Hearing Pc Technician Required: No Beliefs That Will Affect Care: None marital status: Current Living Situation: Spouse current occupational status: employed 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 How many Children do You have: 0 How many Children do You have Comment: 1 step child Other Information That Helps Us Care for You: No Feels Safe at Home: Yes Safety Concerns: Feels Safe At This Time Childhood Exposure to Second-Hand Smoke: No Seatbelt Use: always Sunscreen Use: Yes Assistive Devices: CPAP and Walker Review of Systems Review of Systems: All systems reviewed & are unremarkable except as noted in HPI & below Physical Exam Physical Exam: Constitutional: Chronically ill appearing M, WD/WN, vitals as above, NAD, sitting up in bed, pleasant, conversing easily Head: Normocephalic, Atraumatic Eyes: PERRL, conjunctivae normal, anicteric sclerae ENMT: external ear and nose normal, oropharynx normal Neck: trachea midline, no thyromegaly normal visual inspection Respiratory: normal respiratory effort, lungs clear to auscultation, no wheeze, rales, rhonchi. Normal insp/exp effort, no accessory muscle use Cardiovascular: IRR/IRR 1/6 LISETH LUSB, +2 bilateral edema through proximal lower ext, b/l scaly venous stasis changes Vessels: no JVD or carotid bruit Chest: normal inspection of chest Abdomen: Distended protuberant abdomen, firm NT, +BS Musculoskeletal: no cyanosis or clubbing, AROM x 4 Skin: no rashes, warm and dry normal turgor Neurologic: PERRL, EOMI, accommodation nl, no face palsy, no dysarthria CN's II-XI intact bilaterally and moves all extremities Psychiatric: A+Ox3, euthymic affect Lymphatic: no cervical or axillary lymphadenopathy : +erythematous scrotal area, swollen scrotum, +echavarria cath draining yellow urine Results & Data Results & Data Vital Signs (Past 12 Hours) Vital Signs Temp Pulse Resp BP Pulse Ox O2 Del Method 12/05/23 11:29 36.3 C L 99 H 20 131/84 95 Room Air Laboratory Results I have independently reviewed and interpreted patient's admitting labs including CBC, CMP, bnp, mag and troponin. Diagnostic Findings Chest X-Ray 12/05/23 11:33 XR chest 1V portable HISTORY: Chest pain, nonspecific COMPARISON: Chest 02/14/2020. FINDINGS: No pneumothorax. There are poststernotomy changes and cardiac valve prostheses. The heart is mildly enlarged. There are calcifications within the aortic knob. There is mild central pulmonary vascular congestion without overt edema. Small right pleural effusion and right basilar densities are noted. IMPRESSION: 1. Cardiomegaly with mild congestive change. 2. Small right pleural effusion with nonspecific right basilar densities. This favors atelectasis from the pleural effusion. ACT 112: Negative or not required by law. Electronically signed by: Jv Cobos M.D. 12/05/2023 12:36 PM ECG Additional Comments: I have independently reviewed and interpreted patient's admitting EKG which revealed: afib, left post fasicular block, qtc 462ms COVID-19 Results Results COVID-19 Adm Lab Results: RBC 3.68 M/uL (4.70-6.10) L 12/05/23 WBC 6.64 K/ul (4.8-10.8) 12/05/23 Hgb 10.3 g/dl (14.0-18.0) L 12/05/23 Hct 34.2 % (42.0-52.0) L 12/05/23 Plt Count 198 K/uL (130-400) 12/05/23 Neutrophils (%) (Auto) 76.4 % 12/05/23 Lymphocytes (%) (Auto) 9.6 % 12/05/23 Monocytes # (Auto) 0.60 K/uL (0.11-0.59) H 12/05/23 Eosinophils # (Auto) 0.29 K/uL (0.00-0.50) 12/05/23 Immature Granulocyte % (Auto) 0.3 % 12/05/23 Neutrophils # (Auto) 5.07 K/uL (1.40-6.50) 12/05/23 Lymphocytes # (Auto) 0.64 K/uL (1.20-3.40) L 12/05/23 Monocytes # (Auto) 0.60 K/uL (0.11-0.59) H 12/05/23 Eosinophils # (Auto) 0.29 K/uL (0.00-0.50) 12/05/23 Basophils # (Auto) 0.02 K/uL (0.00-0.20) 12/05/23 Immature Granulocyte # (Auto) 0.02 K/uL (0.01-0.20) 4 Na 137 mmol/L (136-145) 12/05/23 K 4.2 mmol/L (3.5-5.1) 12/05/23 Cl 99 mmol/L (98-107) 12/05/23 CO2 27 mmol/L (21-32) 12/05/23 Anion Gap 11 (3-11) 12/05/23 BUN 37 mg/dl (6-23) H 12/05/23 Creatinine 1.76 mg/dl (0.6-1.4) H 12/05/23 BUN/Creatinine Ratio 21.0 (10-20) H 12/05/23 Glucose Level 81 mg/dl (70-99(Fasting)) 12/05/23 Ca 9.8 mg/dl (8.6-10.3) 12/05/23 Total Bilirubin 1.0 mg/dl (0.2-1.0) 12/05/23 AST/SGOT 18 U/L (13-39) 12/05/23 ALT/SGPT 9 U/L (7-52) 12/05/23 Alkaline Phosphatase 85 U/L (34-104) 12/05/23 Total Protein 7.4 gm/dl (6.0-8.3) 12/05/23 Albumin 4.2 gm/dl (3.4-5.0) 12/05/23 Globulin 3.2 gm/dl (2.5-4.0) 12/05/23 Albumin/Globulin Ratio 1.3 (0.9-2) 12/05/23 PTT 30 Seconds (21-31) 12/05/23 INR 1.2 (0.9-1.1) H 12/05/23 Chest X-Ray 12/05/23 Code Status & VTE Plan Code Status FULL CODE VTE Prophylaxis Plan VTE Prophylaxis will be ordered: No Reason for no VTE drug order: Treatment not indicated Supervising Physician Co-Signing Physician Notes Patient was seen and examined independently at bedside. Chart reviewed. Case discussed with Jazmín BOWIE and agree with the documentation above with regards to HPI, PE and A/P. Being admitted for acute on chronic right right sided failure with USHA and is on iv lasix 40 bid and having good diuresis, on echavarria. Cardio following. Follow response to diuretics, labs in am. Rest as per the note above.
[2023-12-05] MEDS: FUROSEMIDE 40 MG/4 ML VIAL IV ONE (13:32)
--- NOTE | 2023-12-05 15:08 | Cardiology Consultation ---
Date of Consultation December 05, 2023 Assessment & Plan (1) Acute on chronic right-sided heart failure: (2) USHA (acute kidney injury): (3) Chronic atrial fibrillation: (4) History of aortic valve replacement: (5) History of mitral valve replacement: (6) History of endocarditis: (7) Sleep apnea: Plan Acute on chronic decompensated right heart failure, underlying severe RV dysfunction, severe pulmonary hypertension, chronic atrial fibrillation Recommendations: 1. Furosemide 40 mg IV twice a day to start 2. Consider retrial of spironolactone pending renal dysfunction 3. Lara catheter 4. Strict I's and O's 5. Daily standing weights if possible 6. Restrict sodium to less than 1,500 mg/day 7. Restrict fluids to less than 2,000 mL/day 8. Home CPAP QHS and when napping during the day. 9. Discontinue and avoid NSAID's 10. Change atenolol to metoprolol succinate 11. Continue apixaban (Eliquis) anticoagulation 12. Maintain telemetry 13. Daily labs I spent a total of 48 minutes on the date of service in preparation, delivery, and documentation of the care provided to this patient excluding any time spent in the performance of separately billed services. This visit was a split-shared visit with the substantive portion of the medical decision making performed by the supervising simonizer/billing provider. Supervising Physician Co-Signing Physician Notes Patient was seen and personally examined. Inpatient studies at outpatient evaluation reviewed in detail. Assessment and plan as defined above. Care and management discussed personally with advanced provider and endorsed Subacute presentation with profound right heart failure manifesting as marked lower extremity edema increased abdominal girth and weight gain. Echocardiogram with preserved LV systolic function with hypokinetic right heart. Moderately elevated valve prosthesis gradients aortic and mitral and significant elevation in right heart pressure We will plan on diuresis as above patient already responding to IV furosemide but suspect greater than 30 pounds of volume overload I spent a total of 20 minutes on the date of service in preparation, delivery, and documentation of the care provided to this patient excluding any time spent in the perform History of Present Illness Reason for Consultation: CHF Requesting Physician: Mihaela Gongoraist Service Attending Physician: [facility] History of Present Illness Mr. Wilian Monteiro is a complex 63-year-old male who established cardiology care with Dr. Haskins on December 05, 2023 having previously been followed by [facility]. Patient notably markedly volume overloaded on presentation, chronically volume overloaded though with significant worsening over the last 3 to 4 weeks. Patient describes "blowing up like a balloon." Notes worsening shortness of breath, orthopnea without PND, abdominal bloating/distention, penile/scrotal edema, and worsening bilateral lower extremity peripheral edema. Weights not obtained due to inability to stand on the scale. Notes past poor tolerance to loop diuretics. Recent medication changes included changing chlorthalidone from daily to 2 tablets 3 days/week in September 2023, the addition of Benicar, titration of atenolol to twice per day, and the addition of furosemide on December 03, 2023. EKG on presentation revealed atrial fibrillation. Telemetry without significant arrhythmias. Chest x-ray revealed cardiomegaly with mild congestive change, small right pleural effusion. Patient notes receiving 40 mg of IV Lasix with significant urine output and some improvement in dyspnea. No chest pain. No palpitations. No PND. No dizziness or syncope. No fevers or chills. Past Medical and Surgical History: History of mitral valve endocarditis, MSSA bacteremia February 2020 Preoperative severe aortic valve stenosis February 22, 2022 Coronary Angiography ([facility]): Right dominant coronary anatomy, without obstructive coronary artery disease. 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 Father with an NV of 78. 3 brothers, oldest with prostate cancer. Social History: Never smoker. No smokeless tobacco. No alcohol. No illegal drug use. to [place]. 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 Primarily wheelchair-bound Allergies Allergy/AdvReac Type Severity Reaction Status Date / Time amoxicillin Allergy Intermediate Rash Verified 12/05/23 13:07 cyclobenzaprine AdvReac Intermediate Rash Verified 12/05/23 13:07 Home Medications Medication Instructions Recorded Confirmed Type apixaban 5 mg tablet 5 mg PO DAILY 12/05/23 12/05/23 History aspirin 81 mg capsule 81 mg PO DAILY 12/05/23 12/05/23 History atenolol 50 mg tablet 50 mg PO BID 12/05/23 12/05/23 History chlorthalidone 25 mg tablet 50 mg PO MOWEFR 12/05/23 12/05/23 History cholecalciferol (vitamin D3) 125 125 mcg PO DAILY 12/05/23 12/05/23 History mcg (5,000 unit) tablet (Vitamin D3) coenzyme Q10 100 mg capsule 100 mg PO DAILY 12/05/23 12/05/23 History (CoQ-10) furosemide 40 mg tablet 40 mg PO DAILY 12/05/23 12/05/23 History magnesium 100 mg capsule 100 mg PO DAILY 12/05/23 12/05/23 History olmesartan 20 mg tablet 20 mg PO DAILY 12/05/23 12/05/23 History potassium chloride 20 mEq 20 meq PO MOWEFR 12/05/23 12/05/23 History tablet,extended release Patient History Medical History Embolic stroke involving cerebellar artery Acute hypoxemic respiratory failure (03/01/20) Confusion Abnormal LFTs Elevated troponin Cellulitis Sepsis Vertigo Urinary incontinence Benign essential hypertension Asthma Obstructive sleep apnea Surgical History History of vasectomy Family History Father Heart disease Hypertension, Onset Age: 50 Kidney disease, Onset Age: 30 Kidney stones as young man Myocardial infarction Passed in 2005 with heart attack age 78 Brother Asthma Prostate cancer, Onset Age: 61 Treated Radiation and hormonal. Cancer younger brother, skin cancer Mother Cancer Skin cancer Brother Cancer skin cancer Denies family history of Ovarian cancer Diabetes Breast cancer Lung cancer Colorectal cancer Stroke Social History Smoking Status: Never smoker Second Hand Exposure: No; Do You Dip or Chew Tobacco: No; Hx Alcohol Use: No Hx Substance Use: No Preferred Language: Spanish Communication Ability: Effective Communication Ability Comment: [place] Hearing Ability: Hard of Hearing Drafting Instructor Required: No Beliefs That Will Affect Care: None marital status: Current Living Situation: Spouse current occupational status: employed 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 How many Children do You have: 0 How many Children do You have Comment: 1 step child Other Information That Helps Us Care for You: No Feels Safe at Home: Yes Safety Concerns: Feels Safe At This Time Childhood Exposure to Second-Hand Smoke: No Seatbelt Use: always Sunscreen Use: Yes Assistive Devices: CPAP and Walker Review of Systems Review of Systems: Complete Review of Systems is as stated above, negative, or noncontributory. Physical Exam Physical Exam: General: A&Ox3. NAD. Hard of hearing. HENT: Normocephalic. Atraumatic. Eyes: PER. Conjunctiva pink, sclera clear. Neck: JVD. HJR. Heart: Irregularly irregular at 100 bpm. Grade II/ systolic murmur heard best at the LLSB. No diastolic murmur appreciated. No rub. Lungs: Diminished. Left basilar rales. No wheeze. Abdomen: +BS. Somewhat firm. Nontender. No masses or organomegaly. Extremities: 2-3+ chronic indurated edema. Cool extremities. No clubbing. Left great toenail lifted, first and second toenail bloody from recent mechanical injury. Pulses: radial=2/4, posterior tibial=0/4. Results & Data Vital Signs (Past 12 Hours) Vital Signs Temp Pulse Pulse Resp BP BP Pulse Ox 12/05/23 14:08 102 H 22 129/68 90 12/05/23 13:03 102 H 12/05/23 12:43 75 24 133/77 94 12/05/23 12:41 75 24 93 12/05/23 11:29 36.3 C L 99 H 20 131/84 95 O2 Del Method 12/05/23 14:08 Room Air 12/05/23 13:03 12/05/23 12:43 Room Air 12/05/23 12:41 Room Air 12/05/23 11:29 Room Air Laboratory Results Cardiac Enzymes 12/05/23 Range/Units 11:53 AST 18 (13-39) U/L Troponin I High Sens 42.4 H (0-20) pg/ml B-Natriuretic Peptide 1079 H (0-100) pg/ml Coagulation 12/05/23 Range/Units 11:53 PT Cancelled APTT Cancelled B-Natriuretic Peptide 1079 H (0-100) pg/ml CBC 12/05/23 Range/Units 11:53 WBC 6.64 (4.8-10.8) K/ul RBC 3.68 L (4.70-6.10) M/uL Hgb 10.3 L (14.0-18.0) g/dl Hct 34.2 L (42.0-52.0) % Plt Count 198 (130-400) K/uL Neut # (Auto) 5.07 (1.40-6.50) K/uL Lymph # (Auto) 0.64 L (1.20-3.40) K/uL Rabun # (Auto) 0.60 H (0.11-0.59) K/uL Eos # (Auto) 0.29 (0.00-0.50) K/uL Baso # (Auto) 0.02 (0.00-0.20) K/uL Comprehensive Metabolic Panel 12/05/23 Range/Units 11:53 Sodium 137 (136-145) mmol/L Potassium 4.2 (3.5-5.1) mmol/L Chloride 99 (98-107) mmol/L Carbon Dioxide 27 (21-32) mmol/L BUN 37 H (6-23) mg/dl Creatinine 1.76 H (0.6-1.4) mg/dl Glucose 81 (70-99(Fasting)) mg/dl Calcium 9.8 (8.6-10.3) mg/dl AST 18 (13-39) U/L ALT 9 (7-52) U/L Alkaline Phosphatase 85 (34-104) U/L Total Protein 7.4 (6.0-8.3) gm/dl Albumin 4.2 (3.4-5.0) gm/dl Diagnostic Findings August 11, 2022 TTE Interpretation Summary ([facility]) Technically difficult study due to body habitus per the report Normal left ventricular wall motion with exception of paradoxical septal motion consistent with right ventricular volume overload, LVEF 65% [id number] concentric LVH Moderate dilatation of the right ventricle Severe right ventricular hypokinesis Moderate left atrial dilatation Well-seated aortic valve replacement LV OT/aortic valve ratio is 0.4 consistent with possible mild prosthetic stenosis, trace to mild insufficiency Well-seated mitral valve replacement with mean diastolic mitral valve gradient of 9 millimeters Hg suggestive of some degree of prosthetic stenosis trace mitral regurgitation noted [id number]-[id number] tricuspid regurgitation, pulmonary artery systolic pressure severely elevated at 65 millimeters Hg EKG on 12/05/2023 revealed atrial fibrillation at 91 beats per minute, age undetermined inferior infarct pattern present, otherwise nonspecific diffuse T- wave flattening and baseline artifact present. TTE: Completed prior to my evaluation, pending interpretation
[2023-12-05] MEDS ORDERED: ONDANSETRON INJ 2 MG/ML 2 ML VIAL IV PRN (15:27)
[2023-12-05] MEDS ORDERED: FAMOTIDINE 20 MG TAB PO PRN (15:27)
[2023-12-05 15:52] LABS: INR 1.2 (0.9-1.1); Partial Thromboplastin Ratio 1.1; Partial Thromboplastin Time 30 Seconds (21-31); Prothrombin Time 12.6 Seconds (9.0-12.0)
[2023-12-05] MEDS: Patient's HEIGHT &/or WEIGHT Needed STA (16:55)
[2023-12-05] MEDS: ACETAMINOPHEN 325 MG TAB PO PRN (16:55)
--- OUTSIDE RECORDS SUMMARY | 2023-12-05 18:58 | External Medical Summary | Summary of Care ---
Author Name Unknown Organization [facility] Address [address] [place] [address] Phone [phone] Care Team Providers Care Truck Supervisor Name Role Phone SeptemberDirk MD Primary Care Provider [phone] Reason for Visit * Reason Comments eRx-Medication Refill Encounter Details Date Type Department Care Team (Late st Contact Info) Description 11/01/2023 Refill [facility] [address] [facility] [place] [id number] SeptemberDirk MD [address] [place] [address] Allergies Active Allergy Reactions Criticality Noted Date Comments Bumetanide Nausea/vomiting 09/15/2020 Cyclobenzaprine Rash 09/15/2020 Apixaban Nausea/vomiting 09/15/2020 Furosemide Nausea/vomiting 09/15/2020 Penicillins Rash 12/20/2016 Vomiting per patient Ropinirole Rash 09/15/2020 documented as of this encounter (statuses as of 11/01/2023) Medications Medication Sig Dispensed Refills Start Date End Date Status Potassium Chloride ER 20 MEQ Oral Tablet Extended Release Take 20 mEq by mouth daily. 20 meq daily then 2 tabs three times a week with the chlorthalidone Active Aspirin 81 MG Oral Tablet Chewable Take 1 Tablet by mouth in the morning. Active Vitamin D3 125 MCG (5000 UT) Oral Capsule Take 1 Capsule by mouth in the morning. Active Multivitamin Adult Oral Tablet Take by mouth daily. Active CoQ10 100 MG Oral Capsule Take by mouth daily. Active Magnesium 100 MG Oral Capsule Take 1 Capsule by mouth in the morning. Active Atenolol 50 MG Oral Tablet (Tenormin) Take 1 Tablet by mouth in the morning. Active Potassium Chloride ER 20 MEQ Oral Tablet Extended Release Take 1 Tablet by mouth in the morning. Active Chlorthalidone 25 MG Oral Tablet (Hygroton)Indic ations:Chronic right-sided heart failure (HCC),Hypertens ion goal BP (blood pressure) < 140/90 Take 2 Tablets by mouth in the morning. Three times weekly. 180 Tablet 3 4 Active Olmesartan Medoxomil 20 MG Oral Tablet (Benicar)Indica tions:Hypertens ion goal BP (blood pressure) < 140/90,Chronic right-sided heart failure (HCC) Take 1 Tablet by mouth in the morning. 90 Tablet 3 4 Active Apixaban 5 MG Oral Tablet (Eliquis) Take 1 Tablet by mouth in the morning and 1 Tablet before bedtime. 180 Tablet 3 4 Active Apixaban 5 MG Oral Tablet (Eliquis) Take 1 Tablet by mouth daily. 11/01/19 24 Discontinued documented as of this encounter (statuses as of 11/01/2023) Active Problems Problem Noted Date Diagnosed Date Chronic right-sided heart failure 09/10/2023 Chronic venous stasis dermatitis 09/10/2023 History of endocarditis 09/10/2023 Overview: 2020 Hypertension goal BP (blood pressure) < 140/90 0 09/10/2023 S/P AVR 09/10/2023 S/P MVR (mitral valve repair) 09/10/2023 Poor balance 09/10/2023 documented as of this encounter (statuses as of 11/01/2023) Social History Tobacco Use Types Packs/Day Years Used Date Smoking Tobacco: Never Smokeless Tobacco: Never Alcohol Use Standard Drinks/Week Comments No 0 (1 standard drink = 0.6 oz pur e alcohol) Sex and Gender Information Value Date Recorded Sex Assigned at Not on file Gender Identity Not on file Sexual Orientation Not on file Job Start Date Occupation Industry Not on file Not on file Not on file documented as of this encounter Miscellaneous Notes * Telephone Encounter - Dirk Teran MD - 11/01/2023 4:45 PM EDTSigned Prescriptions: Disp Refills Apixaban 5 MG Oral Tablet (Eliquis) 180 Ta*3 Sig: Take 1 Tablet by mouth in the morning and 1 Tablet before bedtime.Authorizing Provider: DIRK TERAN * Telephone Encounter - Milena Shipley [facility] - 11/01/2023 2:52 PM EDTPending Prescriptions: Disp Refills Apixaban 5 MG Oral Tablet (Eliquis) Sig: Take 1 Tablet by mouth. Electronically signed by Milena Shipley [facility] at 11/01/2023 2:52 PM EDT * Telephone Encounter - Milena Shipley RP - 11/01/2023 2:48 PM EDT Eliquis documented as "historical" at 09/15/2020 OV for 1 tablet daily. Per adherence tracker, med not filled. Per pcp OV on 09/09, Eliquis 5 mg documented as pt taking 1 tab twice daily. Pharmacists cannot authorize refills for meds listed as "historical" in chart. Please approve with updated directions if appropriate. Thank you, Milena Shipley, PharmD Clinical Pharmacist [facility] [phone] 11/01/2023, 2:49 PM Electronically signed by Milena Shipley [facility] at 11/01/2023 2:52 PM EDT documented in this encounter Plan of Treatment Upcoming Encounters Date Type Department Care Team (Latest Contact Info) Description 12/02/2023 8:40 AM EDT Office Visit [address] [phone] Dirk Teran MD [address] [facility] [place] [address] 12/05/2023 10:00 AM EDT Office Visit Cardiology, [facility] [address] [place] [address] Armin Young, [address] [place] [address] 12/19/2023 1:39 PM EDT Hospital Encounter [facility], Operating Room [facility] [address] [place] [phone] Titi Burgos MD [address] [place] [address] 12/19/2023 1:39 PM EDT - 12/19/2023 2:18 PM EDT Surgery OR [facility], Operating Room [facility] [address] [place] [phone] Titi Burgos MD [address] [place] [address] LEFT EXTRACAPSULAR CATARACT REMOVAL WITH INTRAOCULAR LENS 12/31/2023 10:31 AM EDT Hospital Encounter [facility], Operating Room [facility] [address] [place] [phone] Titi Burgos MD [address] [place] [address] 12/31/2023 10:31 AM EDT - 12/31/2023 11:10 AM EDT Surgery OR [facility], Operating Room [facility] [address] [place] [phone] Titi Burgos MD [address] Rai [address] [place] [id number] RIGHT EXTRACAPSULAR CATARACT REMOVAL WITH INTRAOCULAR LENS 04/01/2024 10:40 AM EST Office Visit [facility] [address] [place] [phone] September, Dirk Olvera MD [address] [place] [address] Scheduled Procedures Name Priority Associated Diagnoses Date/Ti me EXTRACAPSULAR CATARACT REMOVAL WITH INTRAOCULAR LENS Combined 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 cataract of left eye 12/19/2023 1:39 PM EDT EXTRACAPSULAR CATARACT REMOVAL WITH INTRAOCULAR LENS Combined 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 cataract of right eye 12/31/2023 10:31 AM EDT Health Maintenance Due Date Last Done Comments Pneumococcal Vaccine: Pediatrics (0 to 5 Years) and At-Risk Patients (6 to 64 Years) (1 of 2 - PCV) 1965 Depression Screening 1971 HIV Screening 1974 Albumin/Creatinine Ratio 1977 Hepatitis C Screening 1977 DTaP,Tdap,and Td Vaccines (1 - Tdap) 1978 Colonoscopy 2004 Fecal Occult Blood Test 2004 Sigmoidoscopy 2004 Zoster Vaccines (1 of 2) 2009 COVID-19 Vaccine (1 - 2022-2 4 season) 2023 Influenza Vaccine (FLU shot) (Season Ended) 2024 GFR 10/14/2024 10/15/2023, 09/10/2023, 09/15/2020 Cologuard 10/08/2025 10/08/2022 Colorectal Cancer Screening 10/08/2025 Diabetes Screening 10/14/2026 10/15/2023, 09/10/2023, 09/10/2023 Lipid Panel 09/09/2028 09/10/2023 GARDASIL-HPV IMMUNIZATION SERIES Aged Out No longer eligible b ased on patient's age to complete this topic Hepatitis B Aged Out No longer eligi ble based on patient's age to complete this topic MENINGOCOCCAL (MENACTRA/MENVEO) Aged Out No longer eligible b ased on patient's age to complete this topic documented as of this encounter Medical Devices Not on filedocumented as of this encounter Care Teams Truck Supervisor Relationship Specialty Start Date End Date September, Dirk Olvera MD [address] [facility] [place] [id number] PCP - General Family Medicine 09/10/23 documented as of this encounter
--- OUTSIDE RECORDS SUMMARY | 2023-12-05 18:58 | External Medical Summary | Summary of Care ---
Author Name Unknown Organization [facility] Address [address] [place] [address] Phone [phone] Care Team Providers Care Sr. Operations Manager Name Role Phone RoselynYuriy MD Primary Care Provider [phone] Reason for Visit * Reason Onset Date Comments MyCode Nonconsent - Not interested at this time 12/02/2023 Encounter Details Date Type Department Care Team (Late st Contact Info) Description 12/02/2023 Orders Only Outcomes Research Department [address] [place] [address] Flori Kelly CHRA MyCode Nonconsent Documentation Allergies Active Allergy Reactions Criticality Noted Date Comments Bumetanide Nausea/vomiting 09/15/2020 Cyclobenzaprine Rash 09/15/2020 Furosemide Nausea/vomiting 09/15/2020 Penicillins Rash 12/20/2016 Vomiting per patient Ropinirole Rash 09/15/2020 documented as of this encounter (statuses as of 12/02/2023) Medications Medication Sig Dispensed Refills Start Date End Date Status Potassium Chloride ER 20 MEQ Oral Tablet Extended Release Take 1 Tablet by mouth in the morning. 20 meq daily then 2 tabs three times a week with the chlorthalidone . Active Aspirin 81 MG Oral Tablet Chewable Take 1 Tablet by mouth in the morning. Active Vitamin D3 125 MCG (5000 UT) Oral Capsule Take 1 Capsule by mouth in the morning. Active Multivitamin Adult Oral Tablet Take by mouth daily. Active CoQ10 100 MG Oral Capsule Take by mouth daily. Acti ve Magnesium 100 MG Oral Capsule Take 1 Capsule by mouth in the morning. Active Atenolol 50 MG Oral Tablet (Tenormin) Take 1 Tablet by mouth in the morning. Active Chlorthalidone 25 MG Oral Tablet (Hygroton)Indicat ions:Chronic right-sided heart failure (HCC),Hypertensio n goal BP (blood pressure) < 140/90 Take 2 Tablets by mouth in the morning. Three times weekly. 180 Tablet 3 09/10/2023 Active Olmesartan Medoxomil 20 MG Oral Tablet (Benicar)Indicati ons:Hypertension goal BP (blood pressure) < 140/90,Chronic right-sided heart failure (HCC) Take 1 Tablet by mouth in the morning. 90 Tablet 3 09/27/2023 Active Apixaban 5 MG Oral Tablet (Eliquis) Take 1 Tablet by mouth in the morning and 1 Tablet before bedtime. 180 Tablet 3 11/01/2023 Active Furosemide 40 MG Oral Tablet (Lasix)Indication s:Anasarca,Lower extremity edema Take 1 Tablet by mouth in the morning. 30 Tablet 11 12/02/2023 Active documented as of this encounter (statuses as of 12/02/2023) Active Problems Problem Noted Date Diagnosed Date Chronic right-sided heart failure 09/10/2023 Chronic venous stasis dermatitis 09/10/2023 History of endocarditis 09/10/2023 Overview: 2020 Hypertension goal BP (blood pressure) < 140/90 0 09/10/2023 S/P AVR 09/10/2023 S/P MVR (mitral valve repair) 09/10/2023 Poor balance 09/10/2023 documented as of this encounter (statuses as of 12/02/2023) Social History Tobacco Use Types Packs/Day Years [...] on file documented as of this encounter Progress Notes * Flori Kelly CHRA - 12/02/2023 9:15 AM EDT Jolene Nonconsent Documentation Wilian Monteiro was approached in the clinic regarding participation in the [employer] and did not consent. documented in this encounter Plan of Treatment Upcoming Encounters Date Type Department Care Team (Latest Contact Info) Description 12/02/2023 9:40 AM EDT Laboratory Laboratory, [place] [address] [facility] [address] [place], Laboratory [address] [facility] [place] [address] Arrived 12/05/2023 10:00 AM EDT Office Visit Cardiology, [facility] [address] [place] [address] Armin Young DO [address] [place] [address] 12/11/2023 1:00 PM EDT Cardiac Studies Cardiac Studies, [facility] [address] [place] [address] 12/19/2023 1:40 PM EDT Hospital Encounter OR [facility], Operating Room [facility] [address] [place] [address] Titi Burgos MD [address] [address] 12/19/2023 1:40 PM EDT - 12/19/2023 2:19 PM EDT Surgery OR [facility], Operating Room [facility] [address] [place] [address] Titi Burgos MD [address] [place] [address], [place] [address] LEFT EXTRACAPSULAR CATARACT REMOVAL WITH INTRAOCULAR LENS 12/31/2023 10:31 AM EDT Hospital Encounter OR [facility], Operating Room [facility] [address] [place] [address] Titi Burgos MD [address] [place] [address] 12/31/2023 10:31 AM EDT - 12/31/2023 11:10 AM EDT Surgery OR [facility], Operating Room [facility] [address] [place] [address] Titi Burgos MD [address] [place] [address] RIGHT EXTRACAPSULAR CATARACT REMOVAL WITH INTRAOCULAR LENS 01/03/2024 7:40 AM EDT Office Visit [facility] [address] [place] [address] SeptemberYuriy MD [address] [place] [address] Scheduled Procedures Name Priority Associated Diagnoses Date/Ti me EXTRACAPSULAR CATARACT REMOVAL WITH INTRAOCULAR LENS Combined 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 cataract of left eye 12/19/2023 1:40 PM EDT EXTRACAPSULAR CATARACT REMOVAL WITH INTRAOCULAR [...] 4 season) 2023 Influenza Vaccine (FLU shot) (#1) 2024 GFR 10/14/2024 10/15/2023, 09/10/2023, 09/15/2020 Cologuard 10/08/2025 10/08/2022 Colorectal Cancer Screening 10/08/2025 Diabetes Screening 10/14/2026 10/15/2023, 09/10/2023, 09/10/2023 Lipid Panel 09/09/2028 09/10/2023 HPV (Gardasil) Vaccine Aged Out No lo nger eligible based on patient's age to complete this topic Hepatitis B Vaccine Aged Out No longe r eligible based on patient's age to complete this topic MENINGOCOCCAL (MENACTRA/MENVEO) Aged Out No longer eligible b ased on patient's age to complete this topic documented as of this encounter Medical Devices Not on filedocumented as of this encounter Care Teams Sr. Operations Manager Relationship Specialty Start Date End Date September, Yuriy Olvera MD [address] [place] [address] PCP - General Family Medicine 09/10/23 documented as of this encounter
--- OUTSIDE RECORDS SUMMARY | 2023-12-05 18:58 | External Medical Summary | Summary of Care ---
Author Name Unknown Organization [facility] Address [address] [place] [address] Phone [phone] Care Team Providers Care Business Office Technology Instructor Name Role Phone SeptemberYuriy MD Primary Care Provider Reason for Visit * Reason Onset Date Comments Appointment 09/10/2023 Encounter Details Date Type Department Care Team (Late st Contact Info) Description 09/10/2023 Telephone [facility] [place] [address] [place] [facility] [address] SeptemberYuriy MD [address] [place] [address] Appointment Allergies Active Allergy Reactions Criticality Noted Date Comments Bumetanide Nausea/vomiting 09/15/2020 Cyclobenzaprine Rash 09/15/2020 Apixaban Nausea/vomiting 09/15/2020 Furosemide Nausea/vomiting 09/15/2020 Penicillins Rash 12/20/2016 Vomiting per patient Ropinirole Rash 09/15/2020 documented as of this encounter (statuses as of 11/02/2023) Medications Medication Sig Dispensed Refills Start Date [...] times weekly. 180 Tablet 3 09/10/2023 Active documented as of this encounter (statuses as of 11/02/2023) Active Problems Problem Noted Date Diagnosed Date Chronic right-sided heart failure 09/10/2023 Chronic venous stasis dermatitis 09/10/2023 History of endocarditis 09/10/2023 Overview: 2020 Hypertension goal BP (blood pressure) < 140/90 0 09/10/2023 S/P AVR 09/10/2023 S/P MVR (mitral valve repair) 09/10/2023 Poor balance 09/10/2023 documented as of this encounter (statuses as of 11/02/2023) Social History Tobacco Use Types Packs/Day Years [...] encounter Miscellaneous Notes * Telephone Encounter - Jv Stevens OSA - 09/10/2023 9:29 AM EDT Is this for a new patient, referral, I am not ure what to do here. There is new patient appts available if that is the case. There is also return appts for almost all providers available as well. Please advise. Please let me know. * Telephone Encounter - Genny Buenrostro OSA - 09/10/2023 9:16 AM EDT Please call Pt to Schedule Cardiology. I wasn't able to find an appt. documented in this encounter Plan of Treatment Upcoming Encounters Date Type Department Care Team (Latest Contact Info) Description 12/02/2023 8:40 AM EDT Office Visit [facility] [address] [place] [facility] [phone] SeptemberYuriy MD [address] [place] [facility] [address] 12/05/2023 10:00 AM EDT Office Visit Cardiology, [facility] [address] [place] [address] Armin Young DO [address] [place] [address] 12/19/2023 1:39 PM EDT Hospital Encounter OR [facility], Operating Room [facility] [address] [place] [phone] Titi Burgos MD [address] [address] 12/19/2023 1:39 PM EDT - 12/19/2023 2:18 PM EDT Surgery OR [facility], Operating Room [facility] [address] [place] [address] Titi Burgos MD [address] [place] [address] LEFT EXTRACAPSULAR CATARACT REMOVAL WITH INTRAOCULAR LENS 12/31/2023 10:31 AM EDT Hospital Encounter OR [facility], Operating Room [facility] [address] [place] [address] Titi Burgos MD [address] [address] 12/31/2023 10:31 AM EDT - 12/31/2023 11:10 AM EDT Surgery OR [facility], Operating Room [facility] [address] [place] [address] Titi Burgos MD [address] [place] [address] RIGHT EXTRACAPSULAR CATARACT REMOVAL WITH INTRAOCULAR LENS 04/01/2024 10:40 AM EST Office Visit [facility] [address] [place] [address] SeptemberYuriy MD [address] [place] [address] Scheduled Procedures Name Priority Associated Diagnoses Date/Ti [...] filedocumented as of this encounter Care Teams Business Office Technology Instructor Relationship Specialty Start Date End Date September, Yuriy Olvera MD [address] [place] [address] PCP - General Family Medicine 09/10/23 documented as of this encounter
--- OUTSIDE RECORDS SUMMARY | 2023-12-05 18:58 | External Medical Summary | Summary of Care ---
Author Name Unknown Organization [facility] Address [address] [facility] [place] [address] Phone [phone] Care Team Providers Care Shuttle Driver Name Role Phone RoselynYuriy MD Primary Care Provider [phone] Reason for Visit * Reason Onset Date Comments Medical Records Request 12/02/2023 Encounter Details Date Type Department Care Team (Late st Contact Info) Description 12/02/2023 Telephone Cardiology, [facility] [address] [place] [address] Armin Young, [address] [place] [address] Medical Records Request Allergies Active Allergy Reactions Criticality Noted Date Comments Bumetanide Nausea/vomiting 09/15/2020 Cyclobenzaprine Rash 09/15/2020 Furosemide Nausea/vomiting 09/15/2020 Penicillins Rash 12/20/2016 Vomiting per patient Ropinirole Rash 09/15/2020 documented as of this encounter (statuses as of 12/03/2023) Medications Medication Sig Dispensed Refills Start Date [...] as of this encounter (statuses as of 12/03/2023) Active Problems Problem Noted Date Diagnosed Date Chronic right-sided heart failure 09/10/2023 Chronic venous stasis dermatitis 09/10/2023 History of endocarditis 09/10/2023 Overview: 2020 Hypertension goal BP (blood pressure) < 140/90 0 09/10/2023 S/P AVR 09/10/2023 S/P MVR (mitral valve repair) 09/10/2023 Poor balance 09/10/2023 documented as of this encounter (statuses as of 12/03/2023) Social History Tobacco Use Types Packs/Day Years [...] encounter Miscellaneous Notes * Telephone Encounter - Raina Thornton CMA - 12/03/2023 4:20 PM EDT Faxed stat records request to [facility] (F: [phone]) and received transmission confirmation. * Telephone Encounter - Torri Riggins OSA - 12/03/2023 8:48 AM EDT Person calling: Wilian Relationship to patient: self Number to return call: [phone] Reason for call(brief): medical history Pharmacy: na Provider Name:Dr. Young Detailed message to office:Patient was only following outpatient with Dr. Ritter. He had his procedure with Dr. Gallito Honeycutt in [place]. Thanks * Telephone Encounter - Ebonie Ricci CMA - 12/02/2023 4:35 PM EDT Left detailed message on patient's identified VM attempted to collect information on patient's previous cardiac hx. It appears he was previously following with Dr. Ritter at [facility]? Review of chart shows patient has hx of AVR & MVR - where was this performed? documented in this encounter Plan of Treatment Upcoming Encounters Date Type Department Care Team (Latest Contact Info) Description 12/05/2023 10:00 AM EDT Office Visit Cardiology, [facility] [address] [address] Armin Young, [address] [place] [address] 12/11/2023 1:00 PM EDT [facility] [address] [address] 12/19/2023 1:40 PM EDT Hospital Encounter OR [facility], Operating Room [facility] [address] [phone] Titi Burgos MD [address] [place] [address] 12/19/2023 1:40 PM EDT - 12/19/2023 2:19 PM EDT Surgery OR [facility], Operating Room [facility] [address] [place] [facility] [place] [address] Titi Burgos MD [address] [address] LEFT EXTRACAPSULAR CATARACT REMOVAL WITH INTRAOCULAR LENS 12/31/2023 10:31 AM EDT Hospital Encounter [facility] [place] [address] Titi Burgos MD [address] [place] [address] 12/31/2023 10:31 AM EDT - 12/31/2023 11:10 AM EDT Surgery OR [facility], Operating Room [facility] [address] [place] [address] Titi Burgos MD [address] [place] [address] RIGHT EXTRACAPSULAR CATARACT REMOVAL WITH INTRAOCULAR LENS 01/03/2024 7:40 AM EDT Office Visit [facility] [address] [place] [address] MayYuriy MD [address] [place], [place] [address] Scheduled Procedures Name Priority Associated Diagnoses Date/Ti [...] of 2) 2009 COVID-19 Vaccine (1 - season) 2023 Influenza Vaccine (FLU shot) (#1) 2024 GFR 12/01/2024 12/02/2023, 10/04, 09/10/2023, Additional history exists Cologuard 10/08/2025 10/08/2022 Colorectal Cancer Screening 10/08/2025 Diabetes Screening 12/01/2026 12/02/2023, 0 10/15/2023, 09/10/2023, Additional history exists Lipid Panel 09/09/2028 09/10/2023 HPV (Gardasil) Vaccine Aged Out No lo nger eligible based on patient's age to complete this topic Hepatitis B Vaccine Aged Out No longe r eligible based on patient's age to complete this topic MENINGOCOCCAL (MENACTRA/MENVEO) Aged Out No longer eligible based on patient's age to complete this topic documented as of this encounter Medical Devices Not on filedocumented as of this encounter Care Teams Shuttle Driver Relationship Specialty Start Date End Date September, Yuriy Olvera MD [address] [place] [address] PCP - General Family Medicine 09/10/23 documented as of this encounter
--- OUTSIDE RECORDS SUMMARY | 2023-12-05 18:58 | External Medical Summary ---
Author Name Unknown Address Unknown Organization [id number]:[facility] [place] - [address] [facility] [address] [facility] [address] Laboratory Report Ordering Provider Test Date Status 12/02/2023 09:41:36 Final Observation Date Value Abnormality Reference (Units ) Status TSH 12/02/2023 09:41:36 4.93 Above high normal 0. 27-4.20 (uIU/mL) Final Performing Location [facility] - [address] [facility] [address]
--- OUTSIDE RECORDS SUMMARY | 2023-12-05 18:58 | External Medical Summary ---
Author Name Unknown Address Unknown Organization [id number][place] [place] [address] [facility] [place] [address] Laboratory Report Ordering Provider Test Date Status 12/02/2023 09:41:36 Final Observation Date Value Abnormality Reference (Units ) Status BUN 12/02/2023 09:41:36 30 Above high normal 6-20 (mg/dL) Final Creatinine 12/02/2023 09:41:36 1.5 Above high normal 0.6-1.2 (mg/dL) Final Glomerular filtration rate/1.73 sq M.predicted [Volume Rate/Area] in Serum, Plasma or Blood by Creatinine-based formula (CKD-EPI) 12/02/2023 09:41:36 52 Below low normal >=60 (mL/min) Final eGFR is calculated based on the CKD-EPI 2020 equation. Sodium 12/02/2023 09:41:36 142 135-146 (m mol/L) Final Potassium 12/02/2023 09:41:36 4.7 3.5-5.1 (m mol/L) Final Cl 12/02/2023 09:41:36 102 98-107 (mm ol/L) Final CO2 12/02/2023 09:41:36 27 22-32 (mmo l/L) Final Anion gap 12/02/2023 09:41:36 13 7-15 (mmol /L) Final Glucose 12/02/2023 09:41:36 81 70-120 (mg /dL) Final Albumin 12/02/2023 09:41:36 4.1 3.8-5.0 (g /dL) Final AST (Aspartate aminotransferase) 12/02/2023 09:41:36 17 10-50 (U/L) Final Alk Phos 12/02/2023 09:41:36 95 35-130 (U/ L) Final Bilirubin, Total 12/02/2023 09:41:36 0.7 <=1 .2 (mg/dL) Final Calcium 12/02/2023 09:41:36 9.4 8.4-10.2 ( mg/dL) Final Protein 12/02/2023 09:41:36 6.6 6.0-8.3 (g /dL) Final ALT (Alanine aminotransferase) 12/02/2023 09:41:36 11 10-50 (U/L) Final Performing Location [facility] [place] [address] [facility] [address]
--- OUTSIDE RECORDS SUMMARY | 2023-12-05 18:58 | External Medical Summary | Summary of Care ---
Author Name Unknown Organization [facility] Address [address] [place] [address] Phone [phone] Care Team Providers Care Spot Facer Name Role Phone SeptemberYuriy MD Primary Care Provider [phone] Reason for Visit * Reason Onset Date Comments Medication Management 09/17/2023 Encounter Details Date Type Department Care Team (Late st Contact Info) Description 09/17/2023 Telephone [facility] [address] [place] [address] SeptemberYuriy MD [address] [place] [address] Medication Management Allergies Active Allergy Reactions Criticality Noted Date Comments Bumetanide Nausea/vomiting 09/15/2020 Cyclobenzaprine Rash 09/15/2020 Apixaban Nausea/vomiting 09/15/2020 Furosemide Nausea/vomiting 09/15/2020 Penicillins Rash 12/20/2016 Vomiting per patient Ropinirole Rash 09/15/2020 documented as of this encounter (statuses as of 10/02/2023) Medications Medication Sig Dispensed Refills Start Date [...] Capsule by mouth in the morning. Active Apixaban 5 MG Oral Tablet (Eliquis) Take 1 Tablet by mouth daily. Active Atenolol 50 MG Oral Tablet (Tenormin) [...] the morning. 90 Tablet 3 09/27/2023 Active documented as of this encounter (statuses as of 10/02/2023) Active Problems Problem Noted Date Diagnosed Date Chronic right-sided heart failure 09/10/2023 Chronic venous stasis dermatitis 09/10/2023 History of endocarditis 09/10/2023 Overview: 2020 Hypertension goal BP (blood pressure) < 140/90 0 09/10/2023 S/P AVR 09/10/2023 S/P MVR (mitral valve repair) 09/10/2023 Poor balance 09/10/2023 documented as of this encounter (statuses as of 10/02/2023) Social History Tobacco Use Types Packs/Day Years [...] encounter Miscellaneous Notes * Telephone Encounter - Nancy Momin LPN - 10/02/2023 8:07 AM EDT Patient aware and verbalized understanding, will comply He started the medication on Saturday. Lab appt scheduled. * Telephone Encounter - Ariadna Isaacs OSA - 10/02/2023 8:04 AM EDT Reason for patient's call: Returning Call Caller was transferred to [facility] at the nurse line. * Telephone Encounter - Julia Schuster LPN - 10/01/2023 4:35 PM EDT Left a message for the patient to return our call. * Telephone Encounter - Yuriy Dempsey MD - 09/27/2023 2:23 PM EDT Medication sent to [facility] in [place]. He should monitor blood pressures on home BP cuff to ensure not hypotensive. Repeat BMP to monitor kidney function and electrolytes in 2 weeks. Order placed. Yuriy Dempsey MD * Telephone Encounter - Dianne Madera OSA - 09/26/2023 3:31 PM EDT Patient calling to find out why his medication has not been called in yet * Telephone Encounter - Irish Lafleur OSA - 09/24/2023 11:24 AM EDT Patient has been notified of the message and is agreeable to start the medication * Telephone Encounter - Arlen Cullen LPN - 09/17/2023 11:39 AM EDT Detailed message left on identified machine. If patient calls back please find out if he is agreeable to starting medication * Telephone Encounter - Arlen Cullen LPN - 09/17/2023 11:37 AM EDT ----- Message from Yuriy Dempsey MD sent at 09/13/2023 4:50 PM EDT ----- Lab work notable for elevated creatinine and decreased GFR. If this remains high over the next few months, he will be diagnosed with chronic kidney disease. Given borderline elevated blood pressures at the appointment and impaired kidney function, I would recommend starting low dose olmesartan which will help control BP while also providing protection to the kidneys. If agreeable, will send medication to desired pharmacy. Yuriy Dempsey MD documented in this encounter Plan of Treatment Upcoming Encounters Date Type Department Care Team (Latest Contact Info) Description 10/15/2023 9:30 AM EDT Laboratory Laboratory, [place] [address] [place] [address] [facility] [address] [place] [address] 12/02/2023 8:40 AM EDT Office Visit [facility] [address] [facility] [place] [address] Yuriy Dempsey MD [address] [place] [address] 12/05/2023 10:00 AM EDT Office Visit Cardiology, [facility] [address] [address] Armin Young, [address] [address] 12/19/2023 1:38 PM EDT Hospital Encounter OR [facility], Operating Room [facility] [address] [address] Titi Burgos MD [address] [place] [address] 12/19/2023 1:38 PM EDT - 12/19/2023 2:17 PM EDT Surgery OR [facility], Operating Room [facility] [address] [place] [address] Titi Burgos MD [address] [place] [address] LEFT EXTRACAPSULAR CATARACT REMOVAL WITH INTRAOCULAR LENS 12/31/2023 10:31 AM EDT Hospital Encounter OR [facility], Operating Room [facility] [address] [place] [address] Titi Burgos MD [address] [place] [address] 12/31/2023 10:31 AM EDT - 12/31/2023 11:10 AM EDT Surgery OR [facility], Operating Room [facility] [address] [place] [address] Titi Burgos MD [address] [place] [address] RIGHT EXTRACAPSULAR CATARACT REMOVAL WITH INTRAOCULAR LENS 04/01/2024 10:40 AM EST Office Visit [facility] [address] [facility] [place] [phone] Yuriy Dempsey MD [address] [facility] [place] [address] Scheduled Orders Name Type Priority Associated Diagnoses Orde r Schedule BASIC METABOLIC PANEL Lab Routine Hypertension goal BP (blood pressure) < 140/90 Chronic right-sided heart failure (HCC) Expected: 09/27/2023 (Approximate), Expires: 09/26/2024 Scheduled Procedures Name Priority Associated Diagnoses Date/Ti me EXTRACAPSULAR CATARACT REMOVAL WITH INTRAOCULAR LENS Combined 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 cataract of left eye 12/19/2023 1:38 PM EDT EXTRACAPSULAR CATARACT REMOVAL WITH INTRAOCULAR [...] Vaccine (FLU shot) (Season Ended) 2024 GFR 09/09/2024 09/10/2023, 09/15/2020 Cologuard 10/08/2025 10/08/2022 Colorectal Cancer Screening 10/08/2025 Diabetes Screening 09/09/2026 09/10/2023, 09/10/2023 Lipid Panel 09/09/2028 09/10/2023 GARDASIL-HPV [...] Not on filedocumented as of this encounter Visit Diagnoses Diagnosis Hypertension goal BP (blood pressure) < 140/90- Primary Unspecified essential hypertension Chronic right-sided heart failure (HCC) Congestive heart failure, unspecified Combined 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 cataract of left eye Other and combined forms of senile cataract Combined 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 cataract of right eye Other and combined forms of senile cataract documented in this encounter Care Teams Spot Facer Relationship Specialty Start Date End Date May, Yuriy Olvera MD [address] [place] [address] PCP - General Family Medicine 09/10/23 documented as of this encounter
--- OUTSIDE RECORDS SUMMARY | 2023-12-05 18:58 | External Medical Summary | Summary of Care ---
Author Name Unknown Organization [facility] Address [address] [place] [address] Phone [phone] Care Team Providers Care Head Refrigerating Engineer Name Role Phone SeptemberYuriy MD Primary Care Provider [phone] Reason for Visit * Reason Onset Date Comments Other 09/11/2023 Encounter Details Date Type Department Care Team (Late st Contact Info) Description 09/11/2023 Telephone [facility] [address] [place] [address] SeptemberYuriy MD [address] [place] [address] Other Allergies Active Allergy Reactions Criticality Noted Date Comments Bumetanide Nausea/vomiting 09/15/2020 Cyclobenzaprine Rash 09/15/2020 Apixaban Nausea/vomiting 09/15/2020 Furosemide Nausea/vomiting 09/15/2020 Penicillins Rash 12/20/2016 Vomiting per patient Ropinirole Rash 09/15/2020 documented as of this encounter (statuses as of 10/29/2023) Medications Medication Sig Dispensed Refills Start Date [...] as of this encounter (statuses as of 10/29/2023) Active Problems Problem Noted Date Diagnosed Date Chronic right-sided heart failure 09/10/2023 Chronic venous stasis dermatitis 09/10/2023 History of endocarditis 09/10/2023 Overview: 2020 Hypertension goal BP (blood pressure) < 140/90 0 09/10/2023 S/P AVR 09/10/2023 S/P MVR (mitral valve repair) 09/10/2023 Poor balance 09/10/2023 documented as of this encounter (statuses as of 10/29/2023) Social History Tobacco Use Types Packs/Day Years [...] encounter Miscellaneous Notes * Telephone Encounter - Julia Schuster LPN - 09/13/2023 9:43 AM EDT Forms faxed to Dr. Ritter's office. 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 Yuriy Dempsey MD * Telephone Encounter - Agata Garcia OSA - 09/12/2023 3:04 PM EDT Please send forms to stop blood thinner for dental procedure to Dr. Ritter Phone # for Dr. Ritter [phone] * Telephone Encounter - Julia Schuster LPN - 09/11/2023 5:56 PM EDT If patient calls back please inform him that the dentists office is requesting that he holds his anticoagulation medication (Eliquis) and this needs to be ok'ed by his ground support equipment assembler as they prescribedthis medication and Dr. Dempsey has only seen the patient one time on 09/10/2023. Dr. Dempsey is requesting cardiology fill out the form. Would the patient like me to send the forms over to Dr. Ritter's office? * Telephone Encounter - Juliette Zapata LPN - 09/11/2023 4:45 PM EDT Pt calling back, he is confused as to why cardiology needs to be envolved? The dentist prescribed abx to take prior to tooth extraction due to having heart valves replaces this would reduce his risk of infection. He last saw Dr Ritter with [facility] over a year ago. * Telephone Encounter - Nancy Robles LPN - 09/11/2023 3:40 PM EDT Patient states that he is in the process of changing cardiologists He is requesting that PCP (Dr. Dempsey) complete the form Please advise * Telephone Encounter - Julia Schuster LPN - 09/11/2023 11:03 AM EDT Left generic message on answering machine asking patient to return our call. If patient calls back please ask him to contact his Winding Machine Operator to get clearance for oral surgery. Paperwork for oral surgery was sent here that we can send to his Cardiologists office if a fax number or office is supplied. documented in this encounter Plan of Treatment Upcoming Encounters Date Type Department Care Team (Latest Contact Info) Description 12/02/2023 8:40 AM EDT Office Visit [facility] [address] [place] [phone] Yuriy Dempsey MD [address] [place] [address] 12/05/2023 10:00 AM EDT Office Visit Cardiology, [facility] [address] [place] [address] Armin Young DO [address] [place] [address] 12/19/2023 1:39 PM EDT Hospital Encounter OR [facility], Operating Room [facility] [address] [place] [phone] Titi Burgos MD [address] [address] 12/19/2023 1:39 PM EDT - 12/19/2023 2:18 PM EDT Surgery OR [facility], Operating Room [facility] [address] [place] [phone] Titi Burgos MD [address] [place] [address] LEFT EXTRACAPSULAR CATARACT REMOVAL WITH INTRAOCULAR LENS 12/31/2023 10:31 AM EDT Hospital Encounter OR [facility], Operating Room [facility] [address] [place] [phone] Titi Burgos MD [address] [address] 12/31/2023 10:31 AM EDT - 12/31/2023 11:10 AM EDT Surgery OR [facility], Operating Room [facility] [address] [place] [phone] Titi Burgos MD [address] [place] [address] RIGHT EXTRACAPSULAR CATARACT REMOVAL WITH INTRAOCULAR LENS 04/01/2024 10:40 AM EST Office Visit [facility] [address] [place] [phone] SeptemberYuriy MD [address] [place] [address] Scheduled Procedures Name Priority Associated Diagnoses Date/Ti [...] filedocumented as of this encounter Care Teams Head Refrigerating Engineer Relationship Specialty Start Date End Date September, Yuriy Olvera MD [address] [place] [address] PCP - General Family Medicine 09/10/23 documented as of this encounter
--- OUTSIDE RECORDS SUMMARY | 2023-12-05 18:58 | External Medical Summary | Summary of Care ---
Author Name Unknown Organization [facility] Address [address] [place] [address] Phone [phone] Care Team Providers Care Machine Setter Automatic Name Role Phone Yuriy Dempsey MD Primary Care Provider [phone] Reason for Visit * Reason Comments Outpatient Testing Encounter Details Date Type Department Care Team (Late st Contact Info) Description 12/02/2023 9:40 AM EDT Laboratory Laboratory, [place] [address] [place] [address] [facility] [address] [place] [address] Anasarca; Lower extremity edema Allergies Active Allergy Reactions Criticality Noted Date [...] dermatitis 09/10/2023 History of endocarditis 09/10/2023 Overview: 2019 Hypertension goal BP (blood pressure) < 140/90 [...] on file documented as of this encounter Plan of Treatment Upcoming Encounters Date Type Department Care Team (Latest Contact Info) Description 12/05/2023 10:00 AM EDT Office Visit Cardiology, [address] [place] [address] Armin Young, [address] [place] [address] 12/11/2023 1:00 PM EDT Cardiac Studies Cardiac Studies, [facility] [address] [place] [address] 12/19/2023 1:40 PM EDT Hospital Encounter OR [facility], Operating Room [facility] [address] [place] [address] Titi Burgos MD [address] [place] [address] 12/19/2023 1:40 PM EDT - 12/19/2023 2:19 PM EDT Surgery OR [facility], Operating Room [facility] [address] [place] [address] Titi Burgos MD [address] [place] [address] LEFT EXTRACAPSULAR CATARACT REMOVAL WITH INTRAOCULAR LENS 12/31/2023 10:31 AM EDT Hospital Encounter OR [facility], Operating Room [facility] [address] [place] [address] Titi Burgos MD [address] [place] [address] 12/31/2023 10:31 AM EDT - 12/31/2023 11:10 AM EDT Surgery OR [facility], Operating Room [facility] [address] [place] [address] Titi Burgos MD [address] [place] [address] RIGHT EXTRACAPSULAR CATARACT REMOVAL WITH INTRAOCULAR LENS 01/03/2024 7:40 AM EDT Office Visit [facility] [address] [place] [address] Yuriy Dempsey MD [address] [place] [address] Pending Results Name Type Priority Associated Diagnoses Date /Time CBC WITH WBC DIFFERENTIAL Lab Routine Anasarca Lower extremity edema 12/02/2023 9:41 AM EDT COMPREHENSIVE METABOLIC PANEL Lab Routine Anasarca Lower extremity edema 12/02/2023 9:41 AM EDT BNP, NT-PRO Lab Routine Anasarca Lower extremity edema 12/02/2023 9:41 AM EDT TSH WITH FREE T4 IF INDICATED Lab Routine Anasarca Lower extremity edema 12/02/2023 9:41 AM EDT CBC Lab Routine Anasarca Lower extremity edema 12/02/2023 9:41 AM EDT DIFFERENTIAL, AUTOMATED Lab Routine Anasarca Lower extremity edema 12/02/2023 9:41 AM EDT Scheduled Procedures Name Priority Associated Diagnoses Date/Ti [...] as of this encounter Visit Diagnoses Diagnosis Anasarca Edema Lower extremity edema Edema Combined 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 cataract of left eye Other and combined forms of senile cataract Combined 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 cataract of right eye Other and combined forms of senile cataract documented in this encounter Care Teams Machine Setter Automatic Relationship Specialty Start Date End Date September, Yuriy Olvera MD [address] [place] [address] PCP - General Family Medicine 09/10/23 documented as of this encounter
--- OUTSIDE RECORDS SUMMARY | 2023-12-05 18:58 | External Medical Summary ---
Author Name Unknown Address Unknown Organization [id number]:LABORATORY [facility] - [address] [place] [address] Laboratory Report Ordering Provider Test Date Status 12/02/2023 09:41:36 Final Observation Date Value Abnormality Reference (Units ) Status SYNC LEUKOCYTES IN BLOOD BY AUTOMATED COUNT 12/02/2023 09:41:36 6.17 4.00-10.80 (K/uL) Final Segs 12/02/2023 09:41:36 76.5 Above high normal 40.0-75.0 (%) Final Lymphs % 12/02/2023 09:41:36 9.6 Below low normal 18.0-42.0 (%) Final Monos 12/02/2023 09:41:36 10.0 1.0-11.0 (%) Final Eosinophils 12/02/2023 09:41:36 3.2 0.0-6.0 (%) Final Basos 12/02/2023 09:41:36 0.2 0.0-2.0 (%) Final Immature Granulocyte, Percent 12/02/2023 09:41:36 0.5 0.0-2.0 (%) Final Absolute Segs 12/02/2023 09:41:36 4.72 1.80-7.70 (K/uL) Final Lymphs, absolute 12/02/2023 09:41:36 0.59 Below low normal 1.00-4.80 (K/ul) Final Monos, Abs 12/02/2023 09:41:36 0.62 0.00-1.10 (K/uL) Final Eos, Abs 12/02/2023 09:41:36 0.20 0.00-0.70 (K/uL) Final Basos, Abs 12/02/2023 09:41:36 0.01 0.00-0.20 (K/uL) Final Immature Granulocytes, Number 12/02/2023 09:41:36 0.03 0.00-0.20 (K/uL) Final Performing Location LABORATORY [facility] - [address] [facility] [address]
--- OUTSIDE RECORDS SUMMARY | 2023-12-05 18:58 | External Medical Summary ---
Author Name Unknown Address Unknown Organization [id number]:[facility] [address] [facility] [address] Laboratory Report Ordering Provider Test Date Status 12/02/2023 09:41:36 Final Observation Date Value Abnormality Reference (Units ) Status WBC, Total 12/02/2023 09:41:36 6.17 4.00-10.80 (K/uL) Final RBC 12/02/2023 09:41:36 3.35 4.50-5.25 (M/uL) Final Hemoglobin 12/02/2023 09:41:36 9.8 Below low normal 14.0-16.8 (g/dL) Final HCT 12/02/2023 09:41:36 32.6 Below low normal 40.0-48.4 (%) Final MCV 12/02/2023 09:41:36 97.3 82.0-99.5 (fL) Final MCH 12/02/2023 09:41:36 29.3 27.0-34.0 (pg) Final MCHC 12/02/2023 09:41:36 30.1 32.0-36.0 (g/dL) Final RDW 12/02/2023 09:41:36 16.8 11.5-15.5 (%) Final Platelets 12/02/2023 09:41:36 178 140-400 (K/uL) Final MPV 12/02/2023 09:41:36 11.0 6.6-11.1 (fL) Final Nucleated erythrocytes/100 leukocytes [Ratio] in Blood by Automated count 12/02/2023 09:41:36 0 <=0 (/100 WBCs) Final Performing Location [facility] [place] [address] [place] [address]
--- OUTSIDE RECORDS SUMMARY | 2023-12-05 18:58 | External Medical Summary ---
Author Name Unknown Address Unknown Organization [id number]:[facility] [place] [address] [place] [address] Laboratory Report Ordering Provider Test Date Status DIRK,12/02/2023 09:41:36 Final Exclude Heart Failure: <300 pg/mL
Diagnose Heart Failure:
Age <50 yr: >450 pg/mL
50-75 yr: >900 pg/mL
>75 yr: >1800 pg/mL
GFR is 30-59 mL/min: >1200 pg/mL or Age- adjusted values
GFR <30 mL/min: do not use, not reliable

Prognostic threshold: 1000 pg/mL Observation Date Value Abnormality Reference (Units ) Status BNP, Pro-hormone 12/02/2023 09:41:36 9811 Above high no rmal <300 (pg/mL) Final Performing Location [facility] [place] [address] [place] [address]
--- OUTSIDE RECORDS SUMMARY | 2023-12-05 18:58 | External Medical Summary ---
Author Name Unknown Address Unknown Organization [id number]:LABORATORY [facility] - [address] [place] [address] Laboratory Report Ordering Provider Test Date Status 12/02/2023 09:41:36 Final Observation Date Value Abnormality Reference (Units ) Status T4, Free 12/02/2023 09:41:36 1.3 0.9-1.7 (n g/dL) Final Performing Location LABORATORY [facility] - [address] [place] [address]
--- OUTSIDE RECORDS SUMMARY | 2023-12-05 18:58 | External Medical Summary ---
Author Name Unknown Address Unknown Organization K01[place] [place] [facility] [address] [facility] [address] Laboratory Report Ordering Provider Test Date Status 10/15/2023 09:33:27 Final Observation Date Value Abnormality Reference (Units ) Status BUN 10/15/2023 09:33:27 27 Above high normal 6-20 (mg/dL) Final Creatinine 10/15/2023 09:33:27 1.5 Above high normal 0.6-1.2 (mg/dL) Final Glomerular filtration rate/1.73 sq M.predicted [Volume Rate/Area] in Serum, Plasma or Blood by Creatinine-based formula (CKD-EPI) 10/15/2023 09:33:27 50 Below low normal >=60 (mL/min) Final eGFR is calculated based on the CKD-EPI 2020 equation Sodium 10/15/2023 09:33:27 140 135-146 (m mol/L) Final Potassium 10/15/2023 09:33:27 4.6 3.5-5.1 (m mol/L) Final Cl 10/15/2023 09:33:27 101 98-107 (mm ol/L) Final CO2 10/15/2023 09:33:27 28 22-32 (mmo l/L) Final Anion gap 10/15/2023 09:33:27 11 7-15 (mmol /L) Final Glucose 10/15/2023 09:33:27 81 70-120 (mg /dL) Final Calcium 10/15/2023 09:33:27 9.3 8.4-10.2 ( mg/dL) Final Performing Location [facility] [place] [address] [place] [address]
--- OUTSIDE RECORDS SUMMARY | 2023-12-05 18:58 | External Medical Summary | Summary of Care ---
Author Name Unknown Organization [facility] Address [address] [place] [address] Phone [phone] Care Team Providers Care Line Tester Name Role Phone SeptemberYuriy MD Primary Care Provider [phone] Reason for Visit * Reason Comments Outpatient Testing Encounter Details Date Type Department Care Team (Late st Contact Info) Description 10/15/2023 9:30 AM EDT Laboratory Laboratory, [place] [address] [place] [address] [place], Laboratory [address] [place] [address] Hypertension goal BP (blood pressure) < 140/90; Chronic right-sided heart failure (HCC) Allergies Active Allergy Reactions Criticality Noted Date Comments Bumetanide Nausea/vomiting 09/15/2020 Cyclobenzaprine Rash 09/15/2020 Apixaban Nausea/vomiting 09/15/2020 Furosemide Nausea/vomiting 09/15/2020 Penicillins Rash 12/20/2016 Vomiting per patient Ropinirole Rash 09/15/2020 documented as of this encounter (statuses as of 10/15/2023) Medications Medication Sig Dispensed Refills Start Date [...] as of this encounter (statuses as of 10/15/2023) Active Problems Problem Noted Date Diagnosed Date Chronic right-sided heart failure 09/10/2023 Chronic venous stasis dermatitis 09/10/2023 History of endocarditis 09/10/2023 Overview: 2020 Hypertension goal BP (blood pressure) < 140/90 0 09/10/2023 S/P AVR 09/10/2023 S/P MVR (mitral valve repair) 09/10/2023 Poor balance 09/10/2023 documented as of this encounter (statuses as of 10/15/2023) Social History Tobacco Use Types Packs/Day Years [...] Description 12/02/2023 8:40 AM EDT [facility] [place] [address] [facility] [address] Yuriy Dempsey MD [address] [place] [address] 12/05/2023 10:00 AM EDT Office Visit Cardiology, [facility] [address] [place] [address] Armin Young, [address] [place] [address] 12/19/2023 1:39 PM EDT Hospital Encounter OR [facility], Operating Room [facility] [address] [place] [address] Titi Burgos MD [address] [address] 12/19/2023 1:39 PM EDT - 12/19/2023 2:18 PM EDT Surgery OR [facility], Operating Room [facility] [address] [place] [address] Titi Burgos MD [address] [address] LEFT EXTRACAPSULAR CATARACT REMOVAL WITH INTRAOCULAR LENS 12/31/2023 10:31 AM EDT Hospital Encounter OR [facility], Operating Room [facility] [address] [place] [address] Titi Burgos MD [address] [place] [address] 12/31/2023 10:31 AM EDT - 12/31/2023 11:10 AM EDT Surgery OR [facility], Operating Room [facility] [address] [place] [address] Titi Burgos MD [address] [address] RIGHT EXTRACAPSULAR CATARACT REMOVAL WITH INTRAOCULAR LENS 04/01/2024 10:40 AM EST Office Visit [facility] [address] [place] [phone] Yuriy Dempsey MD [address] [place] [address] Pending Results Name Type Priority Associated Diagnoses Date /Time BASIC METABOLIC PANEL Lab Routine Hypertension goal BP (blood pressure) < 140/90 Chronic right-sided heart failure (HCC) 10/15/2023 9:33 AM EDT Scheduled Procedures Name Priority Associated [...] Diagnosis Hypertension goal BP (blood pressure) < 140/90 Unspecified essential hypertension Chronic right-sided heart failure (HCC) Congestive heart failure, unspecified Combined 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 cataract of left eye Other and combined forms of senile cataract Combined 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 cataract of right eye Other and combined forms of senile cataract documented in this encounter Care Teams Line Tester Relationship Specialty Start Date End Date September, Yuriy Olvera MD [address] [place] [address] PCP - General Family Medicine 09/10/23 documented as of this encounter
--- OUTSIDE RECORDS SUMMARY | 2023-12-05 18:58 | External Medical Summary | Summary of Care ---
Author Name Unknown Organization [facility] Address [address] [facility] [address] Phone [phone] Care Team Providers Care Highway Administrative Engineer Name Role Phone SeptemberYuriy MD Primary Care Provider [phone] Reason for Referral * Precert (Within 10 days (routine)) - Authorized Specialty Diagnoses / Procedures Referred By Contac t Referred To Contact Cardiac Studies Diagnoses Anasarca Lower extremity edema S/P AVR S/P MVR (mitral valve repair) Procedures ECHO, COMPLETE (2D), TRANS-THORACIC Yuriy Dempsey MD [address] [address] Referral ID Status Reason Start Date Expiration Date V isits Requested Visits Authorized [id number] Authorized Precert 12/02/2023 999 999 Reason for Visit * Reason Comments pre-op exam Cataracts Encounter Details Date Type Department Care Team (Late st Contact Info) Description 12/02/2023 8:40 AM EDT Office Visit [facility] [address] [phone] Yuriy Dempsey MD [address] [place] [place] [phone] Cortical age-related cataract of both eyes*; Anasarca; Lower extremity edema; Hypertension goal BP (blood pressure) < 140/90; Chronic right-sided heart failure (HCC); S/P AVR; S/P MVR (mitral valve repair) Allergies Active Allergy Reactions Criticality Noted Date [...] before bedtime. 180 Tablet 3 4 Active Furosemide 40 MG Oral Tablet (Lasix)Indicati ons:Anasarca,Lo wer extremity edema Take 1 Tablet by mouth in the morning. 30 Tablet 11 4 Active Potassium Chloride ER 20 MEQ Oral Tablet Extended Release Take 1 Tablet by mouth in the morning. 12/02/19 24 Discontinued documented as of this encounter [...] on file documented as of this encounter Last Filed Vital Signs Vital Sign Reading Time Taken Comments Blood Pressure 112/80 12/02/2023 8:41 AM EDT Pulse 76 12/02/2023 8:41 AM EDT Temperature 36.6 C (97.8 F) 12/02/2023 8:41 AM ED T Respiratory Rate 18 12/02/2023 8:41 AM EDT Oxygen Saturation - - Inhaled Oxygen Concentration - - Weight - - Height - - Body Mass Index - - documented in this encounter Progress Notes * Yuriy Dempsey MD - 12/02/2023 8:50 AM EDT Images from the original note were not included. Assessment and Plan 1. Cortical age-related cataract of both eyes Patient appropriate to proceed with surgery. No changes to medications. 2. Anasarca Tense edema of the lower extremities bilaterally with scrotal edema and edema of left>right arm.Vitals stable so we will evaluate on an outpatient basis for now. Worsening heart failure versus liver disease versus kidney disease. Lab work as below for further evaluation. Echocardiogram to evaluate aortic and mitral valve. Follow up with Cardiology as scheduled this week. Start Lasix 40 mg luis fernando y. - CBC WITH WBC DIFFERENTIAL; Future - COMPREHENSIVE METABOLIC PANEL; Future - BNP, NT-PRO; Future - TSH WITH FREE T4 IF INDICATED; Future - ECHO, COMPLETE (2D), TRANS-THORACIC; Future - Furosemide 40 MG Oral Tablet (Lasix); Take 1 Tablet by mouth in the morning. Dispense: 30 Tablet;Refill: 11 3. Lower extremity edema - CBC WITH WBC DIFFERENTIAL; Future - COMPREHENSIVE METABOLIC PANEL; Future - BNP, NT-PRO; Future - TSH WITH FREE T4 IF INDICATED; Future - ECHO, COMPLETE (2D), TRANS-THORACIC; Future - Furosemide 40 MG Oral Tablet (Lasix); Take 1 Tablet by mouth in the morning. Dispense: 30 Tablet;Refill: 11 4. Hypertension goal BP (blood pressure) < 140/90 5. Chronic right-sided heart failure (HCC) 6. S/P AVR - ECHO, COMPLETE (2D), TRANS-THORACIC; Future 7. S/P MVR (mitral valve repair) - ECHO, COMPLETE (2D), TRANS-THORACIC; Future Wrap-Up Follow up as scheduled. History of Present Illness The patient is a 63 year old male with past medical history of hypertension, chronic right-sided heart failure status post aortic valve replacement and mitral valve repair anticoagulated on Eliquis who presents for preop evaluation prior to cataract surgery scheduled for 12/19/2023 and 12/31/[address] Burgos. Patient reports difficulty seeing television shows and halos around lights. He does have transportation to and from the appointment. No changes to medications are required prior to surgery. Patient does note lower extremity edema worsening over the last 2 months. He also has has some edema in the left hand. Difficulty getting a weight due to patient being wheelchair-bound. Medication should not be contributory. He does have a history of right-sided heart failure and aortic valve replacement along with mitral valve repair in 2019. Denies chest pain or shortness of breath specifically. He was not currently taking any diuretics other than chlorthalidone. He does have follow up with Cardiology on 12/05/2023. No past medical history on file. No past surgical history on file. No family history on file. Social History Socioeconomic History Marital status: Spouse name: Not on file Number of children: Not on file Years of education: Not on file Highest education level: Not on file Occupational History Not on file Tobacco Use Smoking status: Never Smokeless tobacco: Never Substance and Sexual Activity Alcohol use: No Drug use: No Sexual activity: Not on file Other Topics Concern Not on file Social History Narrative Not on file Social Determinants of Health Financial Resource Strain: Not on file Food Insecurity: Not on file Transportation Needs: Not on file Social Connections: Unknown (12/02/2023) Social Connections How often do you feel lonely or isolated from those around you? (Adult - for ages 18 years and over): Not on file Housing Stability: Not on file Review of patient's allergies indicates: Allergen Reactions Bumex [Bumetanide] Nausea/vomiting Cyclobenzaprine Rash Lasix [Furosemide] Nausea/vomiting Penicillins Rash Vomiting per patient Ropinirole Rash Physical Exam Vitals: 12/02/23 0841 Temp: 36.6 C (97.8 F) Pulse: 76 Resp: 18 BP: 112/80 Physical Exam Physical Exam Vitals reviewed. Constitutional: General: He is not in acute distress. Comments: Using wheelchair for mobility. Cardiovascular: Rate and Rhythm: Normal rate and regular rhythm. Pulmonary: Effort: Pulmonary effort is normal. No respiratory distress. Musculoskeletal: Comments: Tense edema of the lower extremities bilaterally. Scrotal edema present. Edema of the left arm. Skin: Comments: Stasis dermatitis of the legs bilaterally. Neurological: General: No focal deficit present. Mental Status: He is alert. This note has been completed in part utilizing [employer] Speech Voice Recognition Software. Due to technical limitations of the software, grammatical errors, random word insertions, prounoun errors, and incomplete sentences may occur. Any formal questions or concerns about the content, text, or information contained within the body of this dictation should be directly addressed to the provider for clarification. documented in this encounter Nursing Notes * Yoly Hernández LPN - 12/02/2023 8:41 AM EDT The patient has been properly identified by confirmation of name and date of . Chief Complaint Patient presents with pre-op exam Cataracts documented in this encounter Plan of Treatment Upcoming Encounters Date Type Department Care Team (Latest Contact Info) Description 12/02/2023 9:40 AM EDT Laboratory Laboratory, [facility] [address] [place] [phone] [facility] [address] [place] [address] Anasarca; Lower extremity edema 12/05/2023 10:00 AM EDT Office Visit Cardiology, [facility] [place] [address] [place] [address] Armin Young, [address] [place] [address] 12/11/2023 1:00 PM EDT Cardiac Studies Cardiac Studies, [facility] [place] [address] [place] [address] 12/19/2023 1:40 PM EDT Hospital Encounter OR [facility], Operating Room [facility] [address] [place] [phone] Titi Burgos MD [address] [address] 12/19/2023 1:40 PM EDT - 12/19/2023 2:19 PM EDT Surgery OR [facility], Operating Room [facility] [address] [place] [phone] Titi Burgos MD [address] [place] [address] LEFT EXTRACAPSULAR CATARACT REMOVAL WITH INTRAOCULAR LENS 12/31/2023 10:31 AM EDT Hospital Encounter OR [facility], Operating Room [facility] [address] [place] [phone] Titi Burgos MD [address] [address] 12/31/2023 10:31 AM EDT - 12/31/2023 11:10 AM EDT Surgery OR [facility], Operating Room [facility] [address] [place] [phone] Titi Burgos MD [address] [place] [address] RIGHT EXTRACAPSULAR CATARACT REMOVAL WITH INTRAOCULAR LENS 01/03/2024 7:40 AM EDT Office Visit [facility] [address] [place] [address] SeptemberYuriy MD [address] [facility] [place] [address] Scheduled Orders Name Type Priority Associated Diagnoses Orde r Schedule CBC WITH WBC DIFFERENTIAL Lab Routine Anasarca Lower extremity edema Expected: 12/02/2023 (Approximate), Expires: 12/01/2024 COMPREHENSIVE METABOLIC PANEL Lab Routine Anasarca Lower extremity edema Expected: 12/02/2023 (Approximate), Expires: 12/01/2024 BNP, NT-PRO Lab Routine Anasarca Lower extremity edema Expected: 12/02/2023 (Approximate), Expires: 12/01/2024 TSH WITH FREE T4 IF INDICATED Lab Routine Anasarca Lower extremity edema Expected: 12/02/2023 (Approximate), Expires: 12/01/2024 ECHO, COMPLETE (2D), TRANS-THORACIC Echocardiology Routine Anasarca Lower extremity edema S/P AVR S/P MVR (mitral valve repair) Expected: 12/02/2023 (Approximate), Expires: 12/01/2024 Scheduled Procedures Name Priority Associated Diagnoses Date/Ti [...] as of this encounter Visit Diagnoses Diagnosis Cortical age-related cataract of both eyes- Primary Cortical senile cataract Anasarca Edema Lower extremity edema Edema Hypertension goal BP (blood pressure) < 140/90 Unspecified essential hypertension Chronic right-sided heart failure (HCC) Congestive heart failure, unspecified S/P AVR Heart valve replaced by other means S/P MVR (mitral valve repair) Other postprocedural status Anasarca Edema Lower extremity edema Edema Combined 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 cataract of left eye Other and combined forms of senile cataract Combined 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 cataract of right eye Other and combined forms of senile cataract documented in this encounter Care Teams Highway Administrative Engineer Relationship Specialty Start Date End Date September, Yuriy Olvera MD [address] [place] [address] PCP - General Family Medicine 09/10/23 documented as of this encounter
--- OUTSIDE RECORDS SUMMARY | 2023-12-05 18:58 | External Medical Summary | Summary of Care ---
Author Name Unknown Organization [facility] Address [address] [facility] [address] [place] [address] Phone [phone] Care Team Providers Care Textile Stylist Name Role Phone RoselynYuriy MD Primary Care Provider [phone] Reason for Visit * Reason Onset Date Comments Medical Records Request 12/02/2023 Encounter Details Date Type Department Care Team (Late st Contact Info) Description 12/02/2023 Telephone Cardiology, [facility] [address] [place] [address] Armin Young, [address] [place] [address] Medical Records Request Allergies Active Allergy Reactions Criticality Noted Date Comments Bumetanide Nausea/vomiting 09/15/2020 Cyclobenzaprine Rash 09/15/2020 Furosemide Nausea/vomiting 09/15/2020 Penicillins Rash 12/20/2016 Vomiting per patient Ropinirole Rash 09/15/2020 documented as of this encounter (statuses as of 12/04/2023) Medications Medication Sig Dispensed Refills Start Date [...] as of this encounter (statuses as of 12/04/2023) Active Problems Problem Noted Date Diagnosed Date Chronic right-sided heart failure 09/10/2023 Chronic venous stasis dermatitis 09/10/2023 History of endocarditis 09/10/2023 Overview: 2020 Hypertension goal BP (blood pressure) < 140/90 0 09/10/2023 S/P AVR 09/10/2023 S/P MVR (mitral valve repair) 09/10/2023 Poor balance 09/10/2023 documented as of this encounter (statuses as of 12/04/2023) Social History Tobacco Use Types Packs/Day Years [...] encounter Miscellaneous Notes * Telephone Encounter - Armin Young DO - 12/04/2023 2:13 PM EDT Records received and reviewed. [facility] nursing team Armin J Hannah, DO * Telephone Encounter - Raina Thornton CMA - 12/03/2023 4:20 PM EDT Faxed stat records request to [facility] (F: [phone]) and received transmission confirmation. * Telephone Encounter - Torri Riggins OSA - 12/03/2023 8:48 AM EDT Person calling: Wilian Relationship to patient: self Number to return call: [phone] Reason for call(brief): medical history Pharmacy: na Provider Name:Dr. Young Detailed message to office:Patient was only following outpatient with Dr. Ritter. He had his procedure with Dr. Gallito Honeycutt in [place]. Thanks * Telephone Encounter - Ebonie Ricci CMA - 12/02/2023 4:35 PM EDT Left detailed message on patient's identified VM attempted to collect information on patient's previous cardiac hx. It appears he was previously following with Dr. Ritter at [facility]? Review of chart shows patient has hx of AVR & MVR - where was this performed? documented in this encounter Plan of Treatment Upcoming Encounters Date Type Department Care Team (Latest Contact Info) Description 12/05/2023 10:00 AM EDT Office Visit Cardiology, [facility] [address] [facility] [place] [address] Armin Young DO [address] [place] [address] 12/11/2023 1:00 PM EDT Cardiac Studies Cardiac Studies, [facility] [address] [place] [address] 12/19/2023 1:40 PM EDT Hospital Encounter OR [facility], Operating Room [facility] [address] [place] [address] Titi Burgos MD [address] [address] 12/19/2023 1:40 PM EDT - 12/19/2023 2:19 PM EDT Surgery OR [facility], Operating Room [facility] [address] [place] [phone] Titi Burgos MD [address] [address] LEFT EXTRACAPSULAR CATARACT REMOVAL WITH INTRAOCULAR LENS 12/31/2023 10:31 AM EDT Hospital Encounter OR [facility], Operating Room [facility] [address] [place] [phone] Titi Burgos MD [address] [address] 12/31/2023 10:31 AM EDT - 12/31/2023 11:10 AM EDT Surgery OR [facility], Operating Room [facility] [address] [place] [phone] Titi Burgos MD [address] [address] RIGHT EXTRACAPSULAR CATARACT REMOVAL WITH INTRAOCULAR LENS 01/03/2024 7:40 AM EDT Office Visit [facility] [address] [place] [facility] [place] [address] Yuriy Dempsey MD [address] [place] [address] Scheduled Procedures Name Priority Associated Diagnoses Date/Ti [...] filedocumented as of this encounter Care Teams Textile Stylist Relationship Specialty Start Date End Date September, Yuriy Olvera MD [address] [place] [address] PCP - General Family Medicine 09/10/23 documented as of this encounter
--- OUTSIDE RECORDS SUMMARY | 2023-12-05 18:59 | External Medical Summary | Summary of Care ---
Author Name Unknown Organization [facility] Address [address] [place] [place] [place] [address] Phone [phone] Care Team Providers Care Director [place] Sales Name Role Phone SeptemberYuriy MD Primary Care Provider Reason for Referral * Evaluate & Treat - Unlimited Visits (Within 10 days (routine)) - Pending Review Specialty Diagnoses / Procedures Referred By Dante duval Referred To Contact Physical Therapy / Physical Medicine And Rehab Diagnoses Poor balance Primary osteoarthritis of both knees Yuriy Dempsey MD [address] [place] [address] Referral ID Status Reason Start Date Expiration Date Visits Requested Visits Authorized [id number] Pending Review Specialty Services Required 09/17/2023 999 999 Question Answer Referral Priority Within 10 days (routine) Where should this appointment be scheduled? Ramonita Comments Knee pain Reason for Visit * Reason Onset Date Comments Advice 09/16/2023 Referral 09/16/2023 Fax 09/16/2023 Encounter Details Date Type Department Care Team (Late st Contact Info) Description 09/16/2023 [facility]phone [facility] [address] [phone] Yuriy Dempsey MD [address] [place] [address] Advice; Referral; Fax Allergies Active Allergy Reactions Criticality Noted Date Comments Bumetanide Nausea/vomiting 09/15/2020 Cyclobenzaprine Rash 09/15/2020 Apixaban Nausea/vomiting 09/15/2020 Furosemide Nausea/vomiting 09/15/2020 Penicillins Rash 12/20/2016 Vomiting per patient Ropinirole Rash 09/15/2020 documented as of this encounter (statuses as of 09/18/2023) Medications Medication Sig Dispensed Refills Start Date End Date Status Potassium Chloride ER 20 MEQ Oral Tablet Extended Release Take 20 mEq by mouth daily. 20 meq daily then 2 tabs three times a week with the chlorthalidone 0 Active Aspirin 81 MG Oral Tablet Chewable Take 1 Tablet by mouth in the morning. 0 Active Vitamin D3 125 MCG (5000 UT) Oral Capsule Take 1 Capsule by mouth in the morning. 0 Active Multivitamin Adult Oral Tablet Take by mouth daily. 0 Active CoQ10 100 MG Oral Capsule Take by mouth daily. 0 Acti ve Magnesium 100 MG Oral Capsule Take 1 Capsule by mouth in the morning. 0 Active Apixaban 5 MG Oral Tablet (Eliquis) Take 1 Tablet by mouth daily. 0 Active Atenolol 50 MG Oral Tablet (Tenormin) Take 1 Tablet by mouth in the morning. 0 Active Potassium Chloride ER 20 MEQ Oral Tablet Extended Release Take 1 Tablet by mouth in the morning. 0 Active Chlorthalidone 25 MG Oral Tablet (Hygroton)Indicat ions:Chronic right-sided heart failure (HCC),Hypertensio n goal BP (blood pressure) < 140/90 Take 2 Tablets by mouth in the morning. Three times weekly. 180 Tablet 3 09/10/2023 Active documented as of this encounter (statuses as of 09/18/2023) Active Problems Problem Noted Date Diagnosed Date Chronic right-sided heart failure 09/10/2023 Chronic venous stasis dermatitis 09/10/2023 History of endocarditis 09/10/2023 Overview: 2019 Hypertension goal BP (blood pressure) < 140/90 0 09/10/2023 S/P AVR 09/10/2023 S/P MVR (mitral valve repair) 09/10/2023 Poor balance 09/10/2023 documented as of this encounter (statuses as of 09/18/2023) Social History Tobacco Use Types Packs/Day Years [...] encounter Miscellaneous Notes * Telephone Encounter - Monika Helton OSA - 09/18/2023 9:49 AM EDT Caller requesting the following information to be faxed: Name/Company of caller: Wilian Monteiro Information requested to be faxed: PT referral Fax number: [phone] Attention to Name/Company: [facility] Any additional information?: * Telephone Encounter - Yuriy Dempsey MD - 09/17/2023 12:36 PM EDT Referral to PT placed. Yuriy Dempsey MD * Telephone Encounter - Arpita Barkley LPN - 09/17/2023 12:00 PM EDT Can a referral be placed, thank you! * Telephone Encounter - Ariadna Isaacs OSA - 09/16/2023 11:16 AM EDT Has the patient been seen for this problem? (Y/N)?: Y If No, an appt needs to be scheduled before a referral will be placed (exception: proceed with referral request if referral request is for a yearly routine appointment with speciality) Patient Name: Wilian Monteiro Patient Primary care provider: Yuriy Dempsey MD Does this need to be an insurance referral (Y/N)?: Y If Yes, does the insurance referral need to be placed into the [employer] system? Name of preferred specialist: [facility] Type of specialist: Physical Therapy Location of specialist: [facility] Phone #: Specialist's Fax #: NA Reason for visit: PT for Knees Date of visit: 09/23/2023 documented in this encounter Plan of Treatment Upcoming Encounters Date Type Department Care Team (Late st Contact Info) Description 04/01/2024 10:40 AM EST Office Visit [facility] [address] [place] [address] SeptemberYuriy MD [address] [place] [address] Scheduled Referrals Name Type Priority Associated Diagnoses Orde r Schedule PHYSICAL THERAPY REFERRAL OP Referral Within 10 days (routine) Poor balance Primary osteoarthritis of both knees Ordered: 09/17/2023 Health Maintenance Due Date Last Done Comments [...] as of this encounter Visit Diagnoses Diagnosis Poor balance- Primary Other symptoms involving nervous and musculoskeletal systems Primary osteoarthritis of both knees Primary localized osteoarthrosis, lower leg documented in this encounter Care Teams Director [place] Sales Relationship Specialty Start Date End Date September, Yuriy Olvera MD [address] [place] [address] PCP - General Family Medicine 09/10/23 documented as of this encounter
--- OUTSIDE RECORDS SUMMARY | 2023-12-05 18:59 | External Medical Summary | Summary of Care ---
Author Name Unknown Organization [facility] Address [address] [place] [address] Phone [phone] Care Team Providers Care Retreader Name Role Phone SeptemberYuriy MD Primary Care Provider [phone] Reason for Visit * Reason Onset Date Comments Referral 09/18/2023 PT Referral Encounter Details Date Type Department Care Team (Late st Contact Info) Description 09/18/2023 Telephone [facility] [address] [place] [address] SeptemberYuriy MD [address] [place] [address] Referral (PT Referral) Allergies Active Allergy Reactions Criticality Noted Date Comments Bumetanide Nausea/vomiting 09/15/2020 Cyclobenzaprine Rash 09/15/2020 Apixaban Nausea/vomiting 09/15/2020 Furosemide Nausea/vomiting 09/15/2020 Penicillins Rash 12/20/2016 Vomiting per patient Ropinirole Rash 09/15/2020 documented as of this encounter (statuses as of 09/20/2023) Medications Medication Sig Dispensed Refills Start Date [...] as of this encounter (statuses as of 09/20/2023) Active Problems Problem Noted Date Diagnosed Date Chronic right-sided heart failure 09/10/2023 Chronic venous stasis dermatitis 09/10/2023 History of endocarditis 09/10/2023 Overview: 2020 Hypertension goal BP (blood pressure) < 140/90 0 09/10/2023 S/P AVR 09/10/2023 S/P MVR (mitral valve repair) 09/10/2023 Poor balance 09/10/2023 documented as of this encounter (statuses as of 09/20/2023) Social History Tobacco Use Types Packs/Day Years [...] encounter Miscellaneous Notes * Telephone Encounter - Linsey Barajas OSA - 09/20/2023 12:19 PM EDT LMOM. Letter sent. 09/20/2023 * Telephone Encounter - Linsey Barajas OSA - 09/18/2023 8:38 AM EDT LMOM asking patient where he wants to go for PT. 09/18/2023 documented in this encounter Plan of Treatment Upcoming Encounters Date Type Department Care Team (Late st Contact Info) Description 12/02/2023 8:40 AM EDT Office Visit [place] [address] [place] [facility] [place] [phone] SeptemberYuriy MD [address] [place] [address] 12/05/2023 10:00 AM EDT Office Visit Cardiology, [facility] [address] [facility] [place] [address] Armin Young DO [address] [facility] [place] [address] 04/01/2024 10:40 AM EST Office Visit [facility] [address] [place] [facility] [place] [phone] Yuriy Dempsey MD [address] [place] [address] Health Maintenance Due Date Last Done Comments [...] filedocumented as of this encounter Care Teams Retreader Relationship Specialty Start Date End Date September, Yuriy Olvera MD [address] [place] [address] PCP - General Family Medicine 09/10/23 documented as of this encounter
--- OUTSIDE RECORDS SUMMARY | 2023-12-05 18:59 | External Medical Summary | Summary of Care ---
Author Name Unknown Organization [facility] Address [address] [facility] [place] [address] Phone [phone] Care Team Providers Care Shirt Operator Name Role Phone SeptemberYuriy MD Primary Care Provider [phone] Reason for Visit * Reason Onset Date Comments Appointment 09/18/2023 Encounter Details Date Type Department Care Team (Late st Contact Info) Description 09/18/2023 Telephone Cardiology, [facility] [address] [place] [address] Armin Young, [address] [place] [address] Appointment Allergies Active Allergy Reactions Criticality Noted [...] encounter Miscellaneous Notes * Telephone Encounter - Malou Boles OSA - 09/18/2023 11:15 AM EDT Pt returned call and is aware of appt date and time * Telephone Encounter - Malou Boles OSA - 09/18/2023 10:38 AM EDT Called pt back to give pt Date and Time of Cardiology appt LMOM to call [phone] Pt is scheduled for new pt 12/05/23 at 10:[address] Young at [facility] Cardiology Pt only wanted appt at [facility] documented in this encounter Plan of Treatment Upcoming Encounters Date Type Department Care Team (Late st Contact Info) Description 12/05/2023 10:00 AM EDT Office Visit Cardiology, [facility] [address] [place] [address] Armin Young, [address] [place] [address] 04/01/2024 10:40 AM EST Office Visit [facility] [address] [place] [address] September, Yuriy Olvera MD [address] [place] [address] Health Maintenance Due Date Last Done Comments [...] filedocumented as of this encounter Care Teams Shirt Operator Relationship Specialty Start Date End Date September, Yuriy Olvera MD [address] [place] [address] PCP - General Family Medicine 09/10/23 documented as of this encounter
--- OUTSIDE RECORDS SUMMARY | 2023-12-05 18:59 | External Medical Summary | Summary of Care ---
Author Name Unknown Organization [facility] Address [address] [facility] [place] [place] [address] Phone [phone] Care Team Providers Care Hole Filler Name Role Phone Yuriy Dempsey MD Primary Care Provider [phone] Reason for Referral * Evaluate & Treat - Unlimited Visits (Within 10 days (routine)) - Authorized Specialty Diagnoses / Procedures Referred By Contact Referred To Contact Cardiovascular Medicine / Cardiology Diagnoses Chronic right-sided heart failure (HCC) Yuriy Dempsey MD [address] [place] [address] Referral ID Status Reason Start Date Expiration Date Visits Requested Visits Authorized [id number] Authorized Specialty Services Required 09/10/2023 999 999 Question Answer Referral Priority Within 10 days (routine) Where should this appointment be scheduled? [facility] To which of the following clinics are you referring your patient? Heart Failure Clinic Comments Right sided heart failure, previously following with [facility] Reason for Visit * Reason Comments NEW PATIENT Pt here today to yosef lacy PCP. Encounter Details Date Type Department Care Team (Latest Contact Info) Description 09/10/2023 8:00 AM EDT [facility] [address] [place] [address] Yuriy Dempsey MD [address] [place] [address] Chronic right-sided heart failure (HCC)*; Chronic venous stasis dermatitis; History of endocarditis; Hypertension goal BP (blood pressure) < 140/90; S/P AVR; S/P MVR (mitral valve repair); Poor balance; Screening for cardiovascular condition; Screening for diabetes mellitus Allergies Active Allergy Reactions Criticality Noted Date Comments Bumetanide Nausea/vomiting 09/15/2020 Cyclobenzaprine Rash 09/15/2020 Apixaban Nausea/vomiting 09/15/2020 Furosemide Nausea/vomiting 09/15/2020 Penicillins Rash 12/20/2016 Vomiting per patient Ropinirole Rash 09/15/2020 documented as of this encounter (statuses as of 09/10/2023) Medications Medication Sig Dispensed Refills Start Date [...] Oral Capsule Take by mouth daily. 0 Active Magnesium 100 MG Oral Capsule Take [...] 0 Active Chlorthalidone 25 MG Oral Tablet (Hygroton)Mehnaz cations:Chroni c right-sided heart failure (HCC),Hyperten alf goal BP (blood pressure) < 140/90 Take 2 Tablets by mouth in the morning. Three times weekly. 180 Tablet 3 4 Active Metoprolol Tartrate 50 MG Oral Tablet (Lopressor) Take 50 mg by mouth 2 times a day. 0 09/10/19 24 Discontinued(Devon mclain preference/disc ontinuation) Chlorthalidone 25 MG Oral Tablet (Hygroton) Take 1 Tablet by mouth. Three times weekly 0 09/10/19 24 Discontinued traMADol HCl 50 MG Oral Tablet (Ultram) Take 50 mg by mouth every 6 hours as needed. 0 09/10/19 24 Discontinued(Wi dication List Clean Up) Melatonin 5 MG Oral Capsule Take 5 mg by mouth at bedtime. 0 09/10/19 24 Discontinued(Pa tient preference/disc ontinuation) Gabapentin 100 MG Oral Capsule (Neurontin) Take 100 mg by mouth at bedtime. 0 09/10/19 24 Discontinued(Pa tient preference/disc ontinuation) documented as of this encounter (statuses as of 09/10/2023) Active Problems Problem Noted Date Diagnosed Date Chronic right-sided heart failure 09/10/2023 Chronic venous stasis dermatitis 09/10/2023 History of endocarditis 09/10/2023 Overview: 2019 Hypertension goal BP (blood pressure) < 140/90 0 09/10/2023 S/P AVR 09/10/2023 S/P MVR (mitral valve repair) 09/10/2023 Poor balance 09/10/2023 documented as of this encounter (statuses as of 09/10/2023) Social History Tobacco Use Types Packs/Day Years [...] Sign Reading Time Taken Comments Blood Pressure 140/82 09/10/2023 8:05 AM EDT Pulse 103 09/10/2023 8:05 AM EDT Temperature 37 C (98.6 F) 09/10/2023 8:05 AM EDT Respiratory Rate 18 09/10/2023 8:05 AM EDT Oxygen Saturation 98% 09/10/2023 8:05 AM EDT Inhaled Oxygen Concentration - - Weight 120.7 kg (266 lb) 09/10/2023 8:05 AM EDT Height 172.7 cm (5' 8") 09/10/2023 8:05 AM EDT Body Mass Index 40.45 09/10/2023 8:05 AM EDT documented in this encounter Progress Notes * Yuriy Dempsey MD - 09/10/2023 7:54 AM EDT Images from the original note were not included. Assessment and Plan Patient presents to establish care with the office. He has a history of right- sided heart failure. Currently is taking atenolol and chlorthalidone for blood pressure control. He unfortunately has nottolerated loop diuretics in the past. We will increase his chlorthalidone to 50 mg daily. We did discuss risk of electrolyte abnormalities, however, patient is agreeable given he was tolerated this well recently. Declined trial of loop diuretic again. We need to check renal function along with electrolytes. This will be done today. I would consider an Evans/Arb for better blood pressure control as long as renal function allows it. 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 He should continue his aspirin and Eliquis. We will refer to Cardiology through [facility] per his request. He should continue to wrap his legs to assist with chronic venous stasis dermatitis. He should continue to follow with [facility] for his impaired balance. We did discuss potential referral to the balance Center at [facility] if things continue to worsen. This all seems to be stemming from the embolic foci in the brain that were noted in early 2020. From a health maintenance perspective he was up-to-date on colon cancer screening. We will discuss vaccines at next appointment. Screening lab work was ordered as below. We will see him every 6 months. 1. Chronic right-sided heart failure (HCC) - Chlorthalidone 25 MG Oral Tablet (Hygroton); Take 2 Tablets by mouth in the morning. Three times weekly. Dispense: 180 Tablet; Refill: 3 - CARDIOLOGY REFERRAL OP 2. Chronic venous stasis dermatitis 3. History of endocarditis 4. Hypertension goal BP (blood pressure) < 140/90 - Chlorthalidone 25 MG Oral Tablet (Hygroton); Take 2 Tablets by mouth in the morning. Three times weekly. Dispense: 180 Tablet; Refill: 3 - COMPREHENSIVE METABOLIC PANEL; Future - CBC; Future 5. S/P AVR 6. S/P MVR (mitral valve repair) 7. Poor balance 8. Screening for cardiovascular condition - LIPID PANEL WITH DIRECT LDL IF TG IS HIGH; Future 9. Screening for diabetes mellitus - HEMOGLOBIN A1C; Future Wrap-Up Follow up in 6 months. History of Present Illness The patient is a 63 year old male with past medical history of endocarditis, atrial fibrillation oneliquis, HTN, s/p MVR, s/p AVR who presents to establish care with the office. Patient is a 63-year-old male who presents to establish care with the office. We reviewed his past medical history. He has a history of right-sided heart failure, history of aortic and mitral valve replacement following endocarditis in 2019, atrial fibrillation. His current medications include atenolol 50 mg once daily, Eliquis 5 mg twice daily, chlorthalidone 25 mg daily. He was previously on Lasix and Bumex per Cardiology, however, he did not tolerate the Lasix due to nausea and vomiting and did not tolerate the Bumex due to urinary frequency. He tells me today he would rather than be on Bumex and have to stand at the toilet for the entire day. Due to his intolerance of loop diuretics he was transitioned back to chlorthalidone which he was tolerated well. Blood pressure in office today is 140/82. I do not see any documentation of him being on an Evans/Arb or spironolactone previously. Does have difficulty with fluid retention especially in the legs. He has chronic venous stasis dermatitis for which he uses Telfa and Evans bandages on the legs bilaterally. He does take a baby aspirin along with magnesium and potassium supplementation. He has not had lab work in over a year per his report due to missed appointments. Following his episode of endocarditis he was on Plavix. In early 2020 Plavix was discontinued and shortly thereafter he had significant worsening imbalance. He reports that MRI of the brain followingthis episode showed new infarcts. He was evaluated by Dr. Mckeon of Neurology at that time who ordered an MRI of the C- spine and T-spine to rule out mass. Since that time his balance has been poor and he currently uses a rolling walker to ambulate. Physical Exam Vitals: 09/10/23 0805 Temp: 37 C (98.6 F) Pulse: 103 Resp: 18 SpO2: 98% BP: 140/82 BMI: 40.45 Physical Exam Physical Exam Vitals reviewed. Constitutional: General: He is not in acute distress. Comments: Using rolling walker to assist with ambulation. Cardiovascular: Rate and Rhythm: Normal rate and regular rhythm. Heart sounds: No murmur heard. Pulmonary: Effort: Pulmonary effort is normal. No respiratory distress. Breath sounds: Normal breath sounds. No wheezing. Musculoskeletal: Comments: 1+ edema of the legs bilaterally. Legs are wrapped in Evans wrap. He does have significant stasis dermatitis. Neurological: Mental Status: He is alert. Time: I spent a total of 40-54 minutes (exact time 50 mins) on the date of service in preparation, delivery, and documentation of the care provided to the patient excluding any time spent in the performance of separately billed services. This note has been completed in part utilizing [employer] Speech Voice Recognition Software. Due to technical limitations of the software, grammatical errors, random word insertions, prounoun errors, and incomplete sentences may occur. Any formal questions or concerns about the content, text, or information contained within the body of this dictation should be directly addressed to the provider for clarification. documented in this encounter Nursing Notes * Aiyana Cespedes LPN - 09/10/2023 7:56 AM EDT Chief Complaint Patient presents with NEW PATIENT Pt here today to establish a PCP. documented in this encounter Plan of Treatment Upcoming Encounters Date Type Department Care Team (Late st Contact Info) Description 04/01/2024 10:40 AM EST Office Visit [facility] [address] [place] [phone] Yuriy Dempsey MD [address] [place] [address] Pending Results Name Type Priority Associated Diagnoses Date /Time LIPID PANEL WITH DIRECT LDL IF TG IS HIGH Lab Routine Screening for cardiovascular condition 09/10/2023 8:53 AM EDT HEMOGLOBIN A1C Lab Routine Screening for diabetes mellitus 09/10/2023 8:53 AM EDT COMPREHENSIVE METABOLIC PANEL Lab Routine Hypertension goal BP (blood pressure) < 140/90 09/10/2023 8:53 AM EDT CBC Lab Routine Hypertension goal BP (blood pressure) < 140/90 09/10/2023 8:53 AM EDT Scheduled Orders Name Type Priority Associated Diagnoses Orde r Schedule LIPID PANEL WITH DIRECT LDL IF TG IS HIGH Lab Routine Screening for cardiovascular condition Expected: 09/10/2023 (Approximate), Expires: 09/09/2024 HEMOGLOBIN A1C Lab Routine Screening for diabetes mellitus Expected: 09/10/2023 (Approximate), Expires: 09/09/2024 COMPREHENSIVE METABOLIC PANEL Lab Routine Hypertension goal BP (blood pressure) < 140/90 Expected: 09/10/2023 (Approximate), Expires: 09/09/2024 CBC Lab Routine Hypertension goal BP (blood pressure) < 140/90 Expected: 09/10/2023 (Approximate), Expires: 09/09/2024 Scheduled Referrals Name Type Priority Associated Diagnoses Orde r Schedule CARDIOLOGY REFERRAL OP Referral Within 10 days (routine) Chronic right-sided heart failure (HCC) Ordered: 09/10/2023 Health Maintenance Due Date Last Done Comments Diabetes Screening 1959 Lipid Panel 1959 Pneumococcal Vaccine: Pediat rics (0 to 5 Years) and At-Risk Patients (6 to 64 Years) (1 of 2 - PCV) 1965 Depression Screening 1971 HIV Screening 1974 Albumin/Creatinine Ratio 1977 Hepatitis C Screening 1977 DTaP,Tdap,and Td Vaccines (1 - Tdap) 1978 Colonoscopy 2004 Fecal Occult Blood Test 2004 Sigmoidoscopy 2004 Zoster Vaccines (1 of 2) 2009 GFR 09/15/2021 09/15/2020 COVID-19 Vaccine (1 - 2022-2 4 season) 2023 Influenza Vaccine (FLU shot) (Season Ended) 2024 Cologuard 10/08/2025 10/08/2022 Colorectal Cancer Screening 10/08/2025 GARDASIL-HPV IMMUNIZATION SERIES Aged Out No longer eligible based on patient's age to complete this topic Hepatitis B Aged Out No longer eligi ble based on patient's age to complete this topic MENINGOCOCCAL (MENACTRA/MENVEO) Aged Out No longer eligible based on patient's age to complete this topic documented as of this encounter Medical Devices Not on filedocumented as of this encounter Visit Diagnoses Diagnosis Chronic right-sided heart failure (HCC)- Primary Congestive heart failure, unspecified Chronic venous stasis dermatitis History of endocarditis Personal history of other diseases of circulatory system Hypertension goal BP (blood pressure) < 140/90 Unspecified essential hypertension S/P AVR Heart valve replaced by other means S/P MVR (mitral valve repair) Other postprocedural status Poor balance Other symptoms involving nervous and musculoskeletal systems Screening for cardiovascular condition Screening for other and unspecified cardiovascular conditions Screening for diabetes mellitus documented in this encounter Care Teams Hole Filler Relationship Specialty Start Date End Date September, Yuriy Olvera MD [address] [place] [address] PCP - General Family Medicine 09/10/23 documented as of this encounter
--- OUTSIDE RECORDS SUMMARY | 2023-12-05 18:59 | External Medical Summary | Summary of Care ---
Author Name Unknown Organization [facility] Address [address] [place] [address] Phone [phone] Care Team Providers Care Green Tire Inspector Name Role Phone SeptemberYuriy MD Primary Care Provider [phone] Reason for Visit * Reason Onset Date Comments Medication Management 09/17/2023 Encounter Details Date Type Department Care Team (Late st Contact Info) Description 09/17/2023 Telephone [facility] [address] [place] [address] SeptemberYuriy MD [address] [place] [address] Medication Management Allergies Active Allergy Reactions Criticality Noted Date Comments Bumetanide Nausea/vomiting 09/15/2020 Cyclobenzaprine Rash 09/15/2020 Apixaban Nausea/vomiting 09/15/2020 Furosemide Nausea/vomiting 09/15/2020 Penicillins Rash 12/20/2016 Vomiting per patient Ropinirole Rash 09/15/2020 documented as of this encounter (statuses as of 10/01/2023) Medications Medication Sig Dispensed Refills Start Date [...] as of this encounter (statuses as of 10/01/2023) Active Problems Problem Noted Date Diagnosed Date Chronic right-sided heart failure 09/10/2023 Chronic venous stasis dermatitis 09/10/2023 History of endocarditis 09/10/2023 Overview: 2020 Hypertension goal BP (blood pressure) < 140/90 0 09/10/2023 S/P AVR 09/10/2023 S/P MVR (mitral valve repair) 09/10/2023 Poor balance 09/10/2023 documented as of this encounter (statuses as of 10/01/2023) Social History Tobacco Use Types Packs/Day Years [...] our call. * Telephone Encounter - Yuriy Dempsye MD - 09/27/2023 2:23 PM EDT Medication sent to [facility] in [place]. He should monitor blood pressures on home [...] Description 12/02/2023 8:40 AM EDT Office Visit [facility] [address] [facility] [address] SeptemberYuriy MD [address] [place] [address] 12/05/2023 10:00 AM EDT Office Visit Cardiology, [facility] [address] [place] [address] Armin Young DO [address] [place] [address] 12/19/2023 1:38 PM EDT Hospital Encounter [facility] Operating [facility] [address] [place] [phone] Titi Burgos MD [address] [address] 12/19/2023 1:38 PM EDT - 12/19/2023 2:17 PM EDT Surgery OR [facility] Operating Room [facility] [address] [place] [phone] Titi Burgos MD [address] [place] [address], [place] [address] LEFT EXTRACAPSULAR CATARACT REMOVAL WITH INTRAOCULAR LENS 12/31/2023 10:31 AM EDT Hospital Encounter OR [facility], Operating Room [facility] [address] [place] [phone] Titi Burgos MD [address] [address] 12/31/2023 10:31 AM EDT - 12/31/2023 11:10 AM EDT Surgery OR [facility], Operating Room [facility] [address] [place] [phone] Titi Burgos MD [address] [place] [address] RIGHT EXTRACAPSULAR CATARACT REMOVAL WITH INTRAOCULAR LENS 04/01/2024 10:40 AM EST Office Visit [facility] [address] [place] [address] SeptemberYuriy MD [address], [place] [phone] Scheduled Orders Name Type Priority Associated Diagnoses [...] cataract documented in this encounter Care Teams Green Tire Inspector Relationship Specialty Start Date End Date September, Yuriy Olvera MD [address] [place] [address] PCP - General Family Medicine 09/10/23 documented as of this encounter
--- OUTSIDE RECORDS SUMMARY | 2023-12-05 18:59 | External Medical Summary | Summary of Care ---
Author Name Unknown Organization [facility] Address [address] [place] [address] Phone [phone] Care Team Providers Care Qa Tester Name Role Phone SeptemberYuriy MD Primary Care Provider [phone] Reason for Visit * Reason Onset Date Comments Fax 09/17/2023 Encounter Details Date Type Department Care Team (Late st Contact Info) Description 09/17/2023 Telephone [facility] [address] [place] [address] SeptemberYuriy MD [address] [place] [address] Fax Allergies Active Allergy Reactions Criticality Noted Date Comments Bumetanide Nausea/vomiting 09/15/2020 Cyclobenzaprine Rash 09/15/2020 Apixaban Nausea/vomiting 09/15/2020 Furosemide Nausea/vomiting 09/15/2020 Penicillins Rash 12/20/2016 Vomiting per patient Ropinirole Rash 09/15/2020 documented as of this encounter (statuses as of 09/25/2023) Medications Medication Sig Dispensed Refills Start Date [...] as of this encounter (statuses as of 09/25/2023) Active Problems Problem Noted Date Diagnosed Date Chronic right-sided heart failure 09/10/2023 Chronic venous stasis dermatitis 09/10/2023 History of endocarditis 09/10/2023 Overview: 2020 Hypertension goal BP (blood pressure) < 140/90 0 09/10/2023 S/P AVR 09/10/2023 S/P MVR (mitral valve repair) 09/10/2023 Poor balance 09/10/2023 documented as of this encounter (statuses as of 09/25/2023) Social History Tobacco Use Types Packs/Day Years [...] encounter Miscellaneous Notes * Telephone Encounter - Arpita Barkley LPN - 09/25/2023 11:27 AM EDT Attempted to call patient , no answer left a detailed messaging informing the patient [facility] needs a clearance faxed to them and per Dr. Dempsey the clearance will need to come from [facility] due to them being the ones currently treating the patient with the anticoagulation therapy. I left the fax number for [facility] in the message as well and asked the patient to call back if hehas any questions. * Telephone Encounter - Kristi Gallagher OSA - 09/23/2023 11:57 AM EDT Forms need to be faxed per leia at [facility]. Never received. Pts surgery will need to be rescheduled til done. Please fax to [phone] * Telephone Encounter - Yuriy Dempsey MD - 09/19/2023 3:55 PM EDT Patient needs cleared by cardiology to stop his anticoagulation given his history of multiple valvereplacements. Currently following with [facility] but transitioning to [facility]. Form was previously faxed to [facility] for them to clear patient to stop anticoagulation given their knowle dge of the patient. I have only seen him once. Yuriy Dempsey MD * Telephone Encounter - Aiyana Cespedes LPN - 09/17/2023 3:20 PM EDT Forms placed on doctor's desk to be filled out. * Telephone Encounter - Leela Shaffer OSA - 09/17/2023 2:25 PM EDT Received a call asking if fax was received by office. Name/Company sending fax: dr [facility] Office What fax is pertaining to: Medical clearance for procedure on 09/23, form must be received by 09/22at 12pm Date(s) they sent request: 09/09/23 09/17/23 Verified fax number they are sending to is correct (Y or N): yes Callback Number for the clinic to call to verified if fax was received: [phone] documented in this encounter Plan of Treatment Upcoming Encounters Date Type Department Care Team (Latest Contact Info) Description 12/02/2023 8:40 AM EDT Office Visit [facility] [place] [address] [facility] [phone] Yuriy Dempsey MD [address] [facility] [address] 12/05/2023 10:00 AM EDT Office Visit Cardiology, [facility] [address] [place] [address] Armin Young DO [address] [place] [address] 12/19/2023 1:38 PM EDT Hospital Encounter OR [facility], Operating [facility] [address] [place] [phone] Titi Burgos MD [address] [address] 12/19/2023 1:38 PM EDT - 12/19/2023 2:17 PM EDT Surgery OR [facility], Operating Room [facility] [address] [place] [phone] Titi Burgos MD [address] [place] [address] LEFT EXTRACAPSULAR CATARACT REMOVAL WITH INTRAOCULAR LENS 12/31/2023 10:31 AM EDT Hospital Encounter OR [facility], Operating Room [facility] [address] [place] [phone] Titi Burgos MD [address] [place] [address] 12/31/2023 10:31 AM EDT - 12/31/2023 11:10 AM EDT Surgery OR [facility] Operating [facility] [address] [place] [phone] Titi Burgos MD [address] [place] [address], [place] [address] RIGHT EXTRACAPSULAR CATARACT REMOVAL WITH INTRAOCULAR LENS 04/01/2024 10:40 AM EST Office Visit [facility] [address] [facility] [place] [phone] SeptemberYuriy MD [address], [place] [phone] Scheduled Procedures Name Priority Associated Diagnoses Date/Ti [...] filedocumented as of this encounter Care Teams Qa Tester Relationship Specialty Start Date End Date September, Yuriy Olvera MD [address] [place] [address] PCP - General Family Medicine 09/10/23 documented as of this encounter
--- OUTSIDE RECORDS SUMMARY | 2023-12-05 18:59 | External Medical Summary | Summary of Care ---
Author Name Unknown Organization [facility] Address [address] [place] [address] Phone [phone] Care Team Providers Care Oil Burner Name Role Phone Yuriy Dempsey MD Primary Care Provider [phone] Reason for Referral * Evaluate & Treat - Unlimited Visits (Within 10 days (routine)) - Pending Review Specialty Diagnoses / Procedures Referred By Dante duval Referred To Contact Physical Therapy / Physical Medicine And Rehab Diagnoses Poor balance Primary osteoarthritis of both knees Yuriy Dempsey MD [address] [place] [address] Referral ID Status Reason Start Date Expiration Date Visits Requested Visits Authorized [id number] Pending Review Specialty Services Required 09/17/2023 999 999 Question Answer Referral Priority Within 10 days (routine) Where should this appointment be scheduled? Mihaela Comments Knee pain Reason for Visit * Reason Onset Date Comments Advice 09/16/2023 Referral 09/16/2023 Encounter Details Date Type Department Care Team (Late st Contact Info) Description 09/16/[address] [facility] [place] [address] [place] [address] Yuriy Dempsey MD [address] [place] [facility] [place] [address] Advice; Referral Allergies Active Allergy Reactions Criticality Noted Date Comments Bumetanide Nausea/vomiting 09/15/2020 Cyclobenzaprine Rash 09/15/2020 Apixaban Nausea/vomiting 09/15/2020 Furosemide Nausea/vomiting 09/15/2020 Penicillins Rash 12/20/2016 Vomiting per patient Ropinirole Rash 09/15/2020 documented as of this encounter (statuses as of 09/17/2023) Medications Medication Sig Dispensed Refills Start Date [...] as of this encounter (statuses as of 09/17/2023) Active Problems Problem Noted Date Diagnosed Date Chronic right-sided heart failure 09/10/2023 Chronic venous stasis dermatitis 09/10/2023 History of endocarditis 09/10/2023 Overview: 2020 Hypertension goal BP (blood pressure) < 140/90 0 09/10/2023 S/P AVR 09/10/2023 S/P MVR (mitral valve repair) 09/10/2023 Poor balance 09/10/2023 documented as of this encounter (statuses as of 09/17/2023) Social History Tobacco Use Types Packs/Day Years [...] encounter Miscellaneous Notes * Telephone Encounter - Yuriy Dempsey MD [...] referral need to be placed into the [employer] system? Name of preferred specialist: [facility] Type of specialist: Physical Therapy Location of specialist: [facility] Phone #: Specialist's Fax #: NA Reason for visit: PT for Knees Date of visit: 09/23/2023 documented in this encounter Plan of Treatment Upcoming Encounters Date Type Department Care Team (Late st Contact Info) Description 04/01/2024 10:40 AM EST Office Visit [facility] [address] [facility] [place] [address] Yuriy Dempsey MD [address] [place] [address] Scheduled Referrals Name Type Priority Associated Diagnoses [...] leg documented in this encounter Care Teams Oil Burner Relationship Specialty Start Date End Date September, Yuriy Olvera MD [address] [place] [address] PCP - General Family Medicine 09/10/23 documented as of this encounter
--- OUTSIDE RECORDS SUMMARY | 2023-12-05 18:59 | External Medical Summary | Summary of Care ---
Author Name Unknown Organization [facility] Address [address] [place] [address] Phone [phone] Care Team Providers Care Profiler Name Role Phone SeptemberYuriy MD Primary Care Provider [phone] Reason for Visit * Reason Onset Date Comments Referral 09/18/2023 PT Referral Encounter Details Date Type Department Care Team (Late st Contact Info) Description 09/18/2023 Telephone [facility] [address] [place] [address] SeptemberYuriy MD [address] [place] [address] Referral (PT Referral) Allergies Active Allergy Reactions Criticality Noted Date Comments Bumetanide Nausea/vomiting 09/15/2020 Cyclobenzaprine Rash 09/15/2020 Apixaban Nausea/vomiting 09/15/2020 Furosemide Nausea/vomiting 09/15/2020 Penicillins Rash 12/20/2016 Vomiting per patient Ropinirole Rash 09/15/2020 documented as of this encounter (statuses as of 09/23/2023) Medications Medication Sig Dispensed Refills Start Date [...] as of this encounter (statuses as of 09/23/2023) Active Problems Problem Noted Date Diagnosed Date Chronic right-sided heart failure 09/10/2023 Chronic venous stasis dermatitis 09/10/2023 History of endocarditis 09/10/2023 Overview: 2020 Hypertension goal BP (blood pressure) < 140/90 0 09/10/2023 S/P AVR 09/10/2023 S/P MVR (mitral valve repair) 09/10/2023 Poor balance 09/10/2023 documented as of this encounter (statuses as of 09/23/2023) Social History Tobacco Use Types Packs/Day Years [...] encounter Miscellaneous Notes * Telephone Encounter - Carolina Bustamante OSA - 09/23/2023 10:29 AM EDT Pt returning call please call pt at [phone] * Telephone Encounter - Linsey Barajas OSA - 09/20/2023 12:19 PM EDT LMOM. Letter sent. 09/20/2023 * Telephone Encounter - Linsey Barajas OSA - 09/18/2023 8:38 AM EDT LMOM asking patient where he wants to go for PT. 09/18/2023 documented in this encounter Plan of Treatment Upcoming Encounters Date Type Department Care Team (Latest Contact Info) Description 12/02/2023 8:40 AM EDT Office Visit [facility] [address] [place] [address] SeptemberYuriy MD [address] [place] [address] 12/05/2023 10:00 AM EDT Office Visit Cardiology, [facility] [address] [place] [address] Armin Young DO [address] [place] [address] 12/19/2023 1:38 PM EDT Hospital Encounter OR [facility], Operating Room [facility] [address] [place] [address] Titi Burgos MD [address] [address] 12/19/2023 1:38 PM EDT - 12/19/2023 2:17 PM EDT Surgery OR [facility], Operating Room [facility] [address] [place] [phone] Titi Burgos MD [address] [address] LEFT EXTRACAPSULAR CATARACT REMOVAL WITH INTRAOCULAR LENS 12/31/2023 12:50 PM EDT Hospital Encounter OR [facility], Operating Room [facility] [address] [place] [address] Titi Burgos MD [address] [address] 12/31/2023 12:50 PM EDT - 12/31/2023 1:29 PM EDT Surgery OR [facility], Operating Room [facility] [address] [place] [address] Titi Burgos MD [address] [address] RIGHT EXTRACAPSULAR CATARACT REMOVAL WITH INTRAOCULAR LENS 04/01/2024 10:40 AM EST Office Visit [facility] [address] [place] [address] SeptemberYuriy MD [address] [place] [address] Scheduled Procedures Name Priority Associated Diagnoses Date/Ti me EXTRACAPSULAR CATARACT REMOVAL WITH INTRAOCULAR LENS Combined 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 cataract of left eye 12/19/2023 1:38 PM EDT EXTRACAPSULAR CATARACT REMOVAL WITH INTRAOCULAR LENS Combined 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 cataract of right eye 12/31/2023 12:50 PM EDT Health Maintenance Due Date Last Done [...] filedocumented as of this encounter Care Teams Profiler Relationship Specialty Start Date End Date September, Yuriy Olvera MD [address] [place] [address] PCP - General Family Medicine 09/10/23 documented as of this encounter
--- OUTSIDE RECORDS SUMMARY | 2023-12-05 18:59 | External Medical Summary | Summary of Care ---
Author Name Unknown Organization [facility] Address [address] [place] [address] Phone [phone] Care Team Providers Care Tombstone Polisher Name Role Phone SeptemberYuriy MD Primary Care Provider [phone] Reason for Visit * Reason Onset Date Comments Referral 09/18/2023 PT Referral Encounter Details Date Type Department Care Team (Late st Contact Info) Description 09/18/2023 Telephone [facility] [address] [place] [address] SeptemberYuriy MD [address] [place] [address] Referral (PT Referral) Allergies Active [...] Description 04/01/2024 10:40 AM EST Office Visit [facility] [address] [place] [address] September, Yuriy Olvera MD [address] [place] [address] Health Maintenance Due Date Last Done Comments [...] filedocumented as of this encounter Care Teams Tombstone Polisher Relationship Specialty Start Date End Date September, Yuriy Olvera MD [address] [facility] [place] [phone] PCP - General Family Medicine 09/10/23 documented as of this encounter
--- OUTSIDE RECORDS SUMMARY | 2023-12-05 18:59 | External Medical Summary | Summary of Care ---
Author Name Unknown Organization [facility] Address [address] [place] [address] Phone [phone] Care Team Providers Care Knotter Name Role Phone SeptemberYuriy MD Primary Care Provider [phone] Reason for Visit * Reason Onset Date Comments Medication Management 09/17/2023 Encounter Details Date Type Department Care Team (Late st Contact Info) Description 09/17/[address] [facility] [address] [place] [address] SeptemberYuriy MD [address] [place] [address] Medication Management Allergies Active Allergy Reactions Criticality Noted Date Comments Bumetanide Nausea/vomiting 09/15/2020 Cyclobenzaprine Rash 09/15/2020 Apixaban Nausea/vomiting 09/15/2020 Furosemide Nausea/vomiting 09/15/2020 Penicillins Rash 12/20/2016 Vomiting per patient Ropinirole Rash 09/15/2020 documented as of this encounter (statuses as of 09/27/2023) Medications Medication Sig Dispensed Refills Start Date [...] as of this encounter (statuses as of 09/27/2023) Active Problems Problem Noted Date Diagnosed Date Chronic right-sided heart failure 09/10/2023 Chronic venous stasis dermatitis 09/10/2023 History of endocarditis 09/10/2023 Overview: 2020 Hypertension goal BP (blood pressure) < 140/90 0 09/10/2023 S/P AVR 09/10/2023 S/P MVR (mitral valve repair) 09/10/2023 Poor balance 09/10/2023 documented as of this encounter (statuses as of 09/27/2023) Social History Tobacco Use Types Packs/Day Years [...] PM EDT Medication sent to [facility] in [place]. He should monitor blood pressures on home [...] Description 12/02/2023 8:40 AM EDT Office Visit [address] [phone] Yuriy [facility] [address] [facility] [address] 12/05/2023 10:00 AM EDT Office Visit Cardiology, [facility] [address] [place] [address] Armin Young, [address] [place] [address] 12/19/2023 1:38 PM EDT Hospital Encounter OR [facility], Operating Room [facility] [address] [place] [phone] Titi Burgos MD [address] [place] [address] 12/19/2023 1:38 PM EDT - 12/19/2023 2:17 PM EDT Surgery OR [facility], Operating Room [facility] [address] [place] [address] Titi Burgos MD [address] [place] [address] LEFT EXTRACAPSULAR CATARACT REMOVAL WITH INTRAOCULAR LENS 12/31/2023 10:31 AM EDT Hospital Encounter OR [facility], Operating Room [facility] [address] [place] [address] Titi Burgos MD [address] [place] [address] 12/31/2023 10:31 AM EDT - 12/31/2023 11:10 AM EDT Surgery OR [facility], Operating Room [facility] [address] [place] [address] Titi Burgos MD [address] [facility] [address] [place] [address], [place] [address] RIGHT EXTRACAPSULAR CATARACT REMOVAL WITH INTRAOCULAR LENS 04/01/2024 10:40 AM EST Office Visit [facility] [address] [place] [facility] [place] [facility] [address] September, Yuriy Olvera MD [address] [place] [address] Scheduled Orders Name Type Priority Associated Diagnoses [...] cataract documented in this encounter Care Teams Knotter Relationship Specialty Start Date End Date September, Yuriy Olvera MD [address] [place] [address] PCP - General Family Medicine 09/10/23 documented as of this encounter
--- OUTSIDE RECORDS SUMMARY | 2023-12-05 18:59 | External Medical Summary | Summary of Care ---
Author Name Unknown Organization [facility] Address [address] [place] [address] Phone [phone] Care Team Providers Care Box Office Clerk Name Role Phone SeptemberYuriy MD Primary Care Provider [phone] Reason for Visit * Reason Onset Date Comments Referral 09/18/2023 PT Referral Encounter Details Date Type Department Care Team (Late st Contact Info) Description 09/18/2023 Telephone [facility] [address] [place] [address] SeptemberYuriy MD [address] [place] [address] Referral (PT Referral) Allergies Active [...] Telephone Encounter - Linsey Barajas OSA - 09/23/2023 10:52 AM EDT LMOM. Please see messages below when patient calls. 09/23/2023 * Telephone Encounter - Carolina Bustamante OSA - 09/23/2023 10:29 AM EDT Pt returning call please call pt at [phone] * Telephone Encounter - Linsey Barajas OSA - 09/20/2023 12:19 PM EDT LMOM. Letter sent. 09/20/2023 * Telephone Encounter - Linsey Barajas OSA - 09/18/2023 8:38 AM EDT LMOM asking patient where he wants to go for PT. 09/18/2023 documented in this encounter Plan of Treatment Upcoming Encounters Date Type Department Care Team (Latest Contact Info) Description 12/02/2023 8:40 AM EDT Office Visit [facility] [address] [place] [address] SeptemberYuriy MD [address] [place] [address] 12/05/2023 10:00 AM EDT Office Visit Cardiology, [facility] [address] [place] [address] Armin Young, [address] [place] [address] 12/19/2023 1:38 PM EDT Hospital Encounter OR [facility], Operating Room [facility] [address] [place] [phone] Titi Burgos MD [facility] [address] [address] 12/19/2023 1:38 PM EDT - 12/19/2023 2:17 PM EDT Surgery OR [facility], Operating Room [facility] [address] [place] [address] Titi Burgos MD [address] [place] [address] LEFT EXTRACAPSULAR CATARACT REMOVAL WITH INTRAOCULAR LENS 12/31/2023 12:50 PM EDT Hospital Encounter OR [facility], Operating Room [facility] [address] [place] [address] Titi Burgos MD [address] [address] 12/31/2023 12:50 PM EDT - 12/31/2023 1:29 PM EDT Surgery OR [facility], Operating Room [facility] [address] [place] [phone] Titi Burgos MD [address] [address] RIGHT EXTRACAPSULAR CATARACT REMOVAL WITH INTRAOCULAR LENS 04/01/2024 10:40 AM EST Office Visit [facility] [address] [place] [phone] Yuriy Dempsey MD [address] [place] [address] Scheduled Procedures Name Priority Associated Diagnoses Date/Ti [...] filedocumented as of this encounter Care Teams Box Office Clerk Relationship Specialty Start Date End Date September, Yuriy Olvera MD [address] [place] [address] PCP - General Family Medicine 09/10/23 documented as of this encounter
--- OUTSIDE RECORDS SUMMARY | 2023-12-05 18:59 | External Medical Summary | Summary of Care ---
Author Name Unknown Organization [facility] Address [address] [place] [address] Phone [phone] Care Team Providers Care Animal Damage Control Agent Name Role Phone SeptemberYuriy MD Primary Care Provider [phone] Reason for Visit * Reason Onset Date Comments Medication Management 09/17/2023 Encounter Details Date Type Department Care Team (Late st Contact Info) Description 09/17/2023 Telephone [facility] [address] [place] [address] SeptemberYuriy MD [address] [place] [address] Medication Management Allergies Active Allergy [...] encounter Miscellaneous Notes * Telephone Encounter - Ariadna Isaacs OSA - 10/02/2023 8:04 AM EDT Reason for patient's call: Returning Call Caller was transferred to [facility] at the nurse line. * Telephone Encounter - Julia Schuster LPN - 10/01/2023 4:35 PM EDT Left a message for the patient to return our call. * Telephone Encounter - Yuriy Dempsey MD - 09/27/2023 2:23 PM EDT Medication sent to [facility] in [place]. He should monitor blood pressures on home [...] Description 12/02/2023 8:40 AM EDT Office Visit [facility] [address] [place] [address] Yuriy Dempsey MD [address] [place] [address] 12/05/2023 10:00 AM EDT Office Visit Cardiology, [facility] [address] [place] [address] Armin Young DO [address] [place] [address] 12/19/2023 1:38 PM EDT Hospital Encounter OR [facility], Operating Room [facility] [address] [place] [phone] Titi Burgos MD [address] [address] 12/19/2023 1:38 PM EDT - 12/19/2023 2:17 PM EDT Surgery OR [facility], Operating Room [facility] [address] [place] [phone] Titi Burgos MD [address] [place] [address] LEFT EXTRACAPSULAR CATARACT REMOVAL WITH INTRAOCULAR LENS 12/31/2023 10:31 AM EDT Hospital Encounter OR [facility], Operating Room [facility] [address] [place] [phone] Titi Burgos MD [address] [place] [address] 12/31/2023 10:31 AM EDT - 12/31/2023 11:10 AM EDT Surgery OR [facility], Operating Room [facility] [address] [place] [phone] Titi Burgos MD [address] [place] [address] RIGHT EXTRACAPSULAR CATARACT REMOVAL WITH INTRAOCULAR LENS 04/01/2024 10:40 AM EST Office Visit [facility] [address] [place] [address] SeptemberYuriy MD [address] [place] [address] Scheduled Orders Name Type Priority Associated Diagnoses [...] cataract documented in this encounter Care Teams Animal Damage Control Agent Relationship Specialty Start Date End Date September, Yuriy Olvera MD [address] [place] [address] PCP - General Family Medicine 09/10/23 documented as of this encounter
--- OUTSIDE RECORDS SUMMARY | 2023-12-05 18:59 | External Medical Summary | Summary of Care ---
Author Name Unknown Organization [facility] Address [address] [place] [address] Phone [phone] Care Team Providers Care Ream Cutter Name Role Phone SeptemberYuriy MD Primary Care Provider [phone] Reason for Visit * Reason Onset Date Comments Referral 09/18/2023 PT Referral Encounter Details Date Type Department Care Team (Late st Contact Info) Description 09/18/2023 Telephone [facility] [address] [place] [address] SeptemberYuriy MD [address] [place] [address] Referral (PT Referral) Allergies Active [...] Description 04/01/2024 10:40 AM EST Office Visit [facility] [address] [place] [address] September, Yuriy Olvera MD [address] [place] [address] Health Maintenance Due Date Last Done Comments [...] filedocumented as of this encounter Care Teams Ream Cutter Relationship Specialty Start Date End Date September, Yuriy Olvera MD [address] [facility] [place] [phone] PCP - General Family Medicine 09/10/23 documented as of this encounter
--- OUTSIDE RECORDS SUMMARY | 2023-12-05 18:59 | External Medical Summary | Summary of Care ---
Author Name Unknown Organization [facility] Address [address] [place] [address] Phone [phone] Care Team Providers Care Play Writer Name Role Phone SeptemberYuriy MD Primary Care Provider [phone] Reason for Visit * Reason Onset Date Comments Fax 09/17/2023 Encounter Details Date Type Department Care Team (Late st Contact Info) Description 09/17/2023 Telephone [facility] [address] [place] [address] SeptemberYuriy MD [address] [place] [address] Fax Allergies Active Allergy Reactions [...] encounter Miscellaneous Notes * Telephone Encounter - Kristi Gallagher OSA - 09/23/2023 11:57 AM EDT Forms need to be faxed per leia at [facility] oral facial surgeons. Never received. Pts surgery will need to be rescheduled til done. Please fax to [phone] * Telephone Encounter - Yuriy Dempsey MD - 09/19/2023 3:55 PM EDT Patient needs cleared by cardiology to stop his anticoagulation given his history of multiple valvereplacements. Currently following with [facility] but transitioning to [facility] Cardiology. Form was previously faxed to [facility] Cardiology for them to clear patient to [...] call to verified if fax was received: [phone] documented in this encounter Plan of Treatment Upcoming Encounters Date Type Department Care Team (Latest Contact Info) Description 12/02/2023 8:40 AM EDT Office Visit [facility] [address] [facility] [phone] Yuriy Dempsey MD [address] [place] [address] 12/05/2023 10:00 AM EDT Office Visit Cardiology, [facility] [address] [place] [address] Armin Young, DO [address] [place] [address] 12/19/2023 1:38 PM EDT Hospital Encounter OR [facility], Operating Room [facility] [address] [place] [address] Titi Burgos MD [address] [place] [address] 12/19/2023 1:38 PM EDT - 12/19/2023 2:17 PM EDT Surgery OR [facility], Operating Room [facility] [address] [place] [address] Titi Burgos MD [address] [place] [address] LEFT EXTRACAPSULAR CATARACT REMOVAL WITH INTRAOCULAR LENS 12/31/2023 12:50 PM EDT Hospital Encounter OR [facility], Operating Room [facility] [address] [place] [address] Titi Burgos MD [address] [place] [address] 12/31/2023 12:50 PM EDT - 12/31/2023 1:29 PM EDT Surgery OR [facility], Operating Room [facility] [address] [place] [address] Titi Burgos MD [address] [place] [address] RIGHT EXTRACAPSULAR CATARACT REMOVAL WITH INTRAOCULAR LENS 04/01/2024 10:40 AM EST Office Visit [facility] [address] [place] [phone] Yuriy Dempsey MD [address] [place] [address] Scheduled Procedures Name Priority Associated Diagnoses Date/Ti [...] filedocumented as of this encounter Care Teams Play Writer Relationship Specialty Start Date End Date September, Yuriy Olvera MD [address] [facility] [place] [address] PCP - General Family Medicine 09/10/23 documented as of this encounter
--- OUTSIDE RECORDS SUMMARY | 2023-12-05 19:00 | External Medical Summary ---
Author Name Unknown Address Unknown Organization [id number]:[facility] - [address] [facility] [place] [address] Laboratory Report Ordering Provider Test Date Status 09/10/2023 08:53:03 Final Observation Date Value Abnormality Reference (Units ) Status BUN 09/10/2023 08:53:03 18 6-20 (mg/dL) Final Creatinine 09/10/2023 08:53:03 1.4 Above high normal 0.6-1.2 (mg/dL) Final Glomerular filtration rate/1.73 sq M.predicted [Volume Rate/Area] in Serum, Plasma or Blood by Creatinine-based formula (CKD-EPI) 09/10/2023 08:53:03 59 Below low normal >=60 (mL/min) Final eGFR is calculated based on the CKD-EPI 2020 equation Sodium 09/10/2023 08:53:03 136 135-146 (m mol/L) Final Potassium 09/10/2023 08:53:03 4.3 3.5-5.1 (m mol/L) Final Cl 09/10/2023 08:53:03 97 Below low normal 98- 107 (mmol/L) Final CO2 09/10/2023 08:53:03 28 22-32 (mmo l/L) Final Anion gap 09/10/2023 08:53:03 11 7-15 (mmol /L) Final Glucose 09/10/2023 08:53:03 95 70-120 (mg /dL) Final Albumin 09/10/2023 08:53:03 4.1 3.8-5.0 (g /dL) Final AST (Aspartate aminotransferase) 09/10/2023 08:53:03 22 10-50 (U/L) Fin al Alk Phos 09/10/2023 08:53:03 118 35-130 (U/ L) Final Bilirubin, Total 09/10/2023 08:53:03 1.1 <=1 .2 (mg/dL) Final Calcium 09/10/2023 08:53:03 9.6 8.4-10.2 ( mg/dL) Final Protein 09/10/2023 08:53:03 6.7 6.0-8.3 (g /dL) Final ALT (Alanine aminotransferase) 09/10/2023 08:53:03 17 10-50 (U/L) Catrachito basilio Performing Location [facility] - [address] [facility] [address]
--- OUTSIDE RECORDS SUMMARY | 2023-12-05 19:00 | External Medical Summary ---
Author Name Unknown Address Unknown Organization [id number]:[facility] [place] [address] [facility] [address] Laboratory Report Ordering Provider Test Date Status 09/10/2023 08:53:03 Final Observation Date Value Abnormality Reference (Units ) Status HbA1C 09/10/2023 08:53:03 5.6 4.0-5.6 (% ) Final The use of HbA1c to monitor glycemic status is based on normal hemoglobin and HbA composition. This test should not be used in patients with abnormal hemoglobin that affects the half life of the red blood cell or the in vivo glycation rates. Glucose, estimated average 09/10/2023 08:53:03 114 <126 (mg/dL) Final Performing Location [facility] [place] [address] [facility] [address]
--- OUTSIDE RECORDS SUMMARY | 2023-12-05 19:00 | External Medical Summary ---
Author Name Unknown Address Unknown Organization [id number][place] [place] [address] [facility] [address] Laboratory Report Ordering Provider Test Date Status DIRK,09/10/2023 08:53:03 Final Observation Date Value Abnormality Reference (Units ) Status Triglyceride 09/10/2023 08:53:03 41 <=174 ( mg/dL) Final Triglyceride Reference Range s (mg/dL):
<150 Acceptable
150-174 Borderline high
175-499 High
>=500 Very high Cholesterol 09/10/2023 08:53:03 120 <200 (mg /dL) Final Total Cholesterol Reference Ranges (mg/dL):
<200 Desirable
200-239 Borderline high
>=240 High HDL 09/10/2023 08:53:03 60 >39 (mg/dL ) Final HDL Cholesterol Reference Ra nges (mg/dL):
>=60 High (Desirable)
<50 Low (Undesirable) For Females
<40 Low (Undesirable) For Males NON-HDL CHOLESTEROL 09/10/2023 08:53:03 60 <=159 (mg/dL) Final Non-HDL Cholesterol Referenc e Range (mg/dL):
<100 Target level for high risk ASCVD patient
<130 Optimal for general population
130-159 Near optimal for general population
160-189 Borderline High
190-219 High
>=220 Very High LDL, (calculated) 09/10/2023 08:53:03 52 <= 129 (mg/dL) Final LDL Cholesterol Reference Ra nges (mg/dL):
<70 Target level for high risk ASCVD patient
<100 Optimal for general population
100-129 Near optimal for general population
130-159 Borderline high
160-189 High
>=190 Very high [place]forming Location [facility] [place] [address] [place] [address]
--- OUTSIDE RECORDS SUMMARY | 2023-12-05 19:00 | External Medical Summary | Summary of Care ---
Author Name Unknown Organization [facility] Address [address] [place] [address] Phone [phone] Care Team Providers Care Locks Tender Name Role Phone SeptemberYuriy MD Primary Care Provider [phone] Reason for Visit * Reason Comments Outpatient Testing Encounter Details Date Type Department Care Team (Late st Contact Info) Description 09/10/2023 9:00 AM EDT Laboratory Laboratory, [place] [address] [place] [facility] [place] [address] [place] [address] [place] [address] Screening for cardiovascular condition; Screening for diabetes mellitus; Hypertension goal BP (blood pressure) < 140/90 Allergies Active Allergy Reactions Criticality Noted Date [...] BP (blood pressure) < 140/90 0 09/10/2023 documented as of this encounter (statuses [...] as of this encounter Plan of Treatment Pending Results Name Type Priority Associated Diagnoses [...] pressure) < 140/90 09/10/2023 8:53 AM EDT Health Maintenance Due Date Last Done Comments Diabetes Screening 1959 Lipid Panel 1959 Pneumococcal Vaccine: Pediat rics (0 to 5 Years) and At-Risk Patients (6 to 64 Years) (1 of 2 - PCV) 1965 Depression Screening 1971 HIV Screening 1974 Hepatitis C Screening 1977 DTaP,Tdap,and Td Vaccines [...] as of this encounter Visit Diagnoses Diagnosis Screening for cardiovascular condition Screening for other and unspecified cardiovascular conditions Screening for diabetes mellitus Hypertension goal BP (blood pressure) < 140/90 Unspecified essential hypertension documented in this encounter Care Teams Locks Tender Relationship Specialty Start Date End Date September, Yuriy Olvera MD [address] [place] [address] PCP - General Family Medicine 09/10/23 documented as of this encounter
--- OUTSIDE RECORDS SUMMARY | 2023-12-05 19:00 | External Medical Summary ---
Author Name Unknown Address Unknown Organization [id number]:[facility] [place] - [address] [facility] [address] Laboratory Report Ordering Provider Test Date Status 09/10/2023 08:53:03 Final Observation Date Value Abnormality Reference (Units ) Status WBC, Total 09/10/2023 08:53:03 7.37 4.00-10.80 (K/uL) Final RBC 09/10/2023 08:53:03 3.59 4.50-5.25 (M/uL) Final Hemoglobin 09/10/2023 08:53:03 10.8 Below low normal 14.0-16.8 (g/dL) Final HCT 09/10/2023 08:53:03 34.6 Below low normal 40.0-48.4 (%) Final MCV 09/10/2023 08:53:03 96.4 82.0-99.5 (fL) Final MCH 09/10/2023 08:53:03 30.1 27.0-34.0 (pg) Final MCHC 09/10/2023 08:53:03 31.2 32.0-36.0 (g/dL) Final RDW 09/10/2023 08:53:03 15.0 11.5-15.5 (%) Final Platelets 09/10/2023 08:53:03 172 140-400 (K/uL) Final MPV 09/10/2023 08:53:03 11.2 6.6-11.1 (fL) Final Nucleated erythrocytes/100 leukocytes [Ratio] in Blood by Automated count 09/10/2023 08:53:03 0 <=0 (/100 WBCs) Final Performing Location [facility] [place] - [address] [place] [address]
[2023-12-05] MEDS: HYDROmorphone INJ 0.5 MG/0.5 ML SYR IV STA (20:32)
[2023-12-05] MEDS ORDERED: MELATONIN 3 MG TAB PO PRN (21:00)
[2023-12-05] MEDS: PHENAZOPYRIDINE HCL 200 MG TAB PO STA (21:06)
[2023-12-05] MEDS: APIXABAN 5 MG TABLET PO SCH (21:07)
[2023-12-05] MEDS: POTASSIUM CHLORIDE CRTAB 20 MEQ TABCR PO SCH (21:08)
[2023-12-05] MEDS: ATENOLOL 50 MG TABLET PO SCH (21:08)
[2023-12-06 06:16] LABS: Basophils # (auto) 0.01 K/uL (0.00-0.20); Basophils % (auto) 0.2 %; Eosinophils # (auto) 0.26 K/uL (0.00-0.50); Eosinophils % (auto) 5.2 %; Hematocrit (blood only) 30.1 % (42.0-52.0); Hemoglobin 9.1 g/dl (14.0-18.0); Immature Granulocytes # (auto) 0.03 K/uL (0.01-0.20); Immature Granulocytes % (auto) 0.6 %; Lymphocytes # (auto) 0.62 K/uL (1.20-3.40); Lymphocytes % (auto) 12.4 %; Mean Corpuscular Hemoglobin 28.2 pg (25.0-34.0); Mean Corpuscular Hgb Conc 30.2 g/dL (32.0-36.0); Mean Corpuscular Volume 93.2 fL (80.0-100.0); Mean Platelet Volume 10.4 fL (9.4-12.4); Monocytes # (auto) 0.62 K/uL (0.11-0.59); Monocytes % (auto) 12.4 %; Neutrophils # (auto) 3.47 K/uL (1.40-6.50); Neutrophils % (auto) 69.2 %; Platelet Count 155 K/uL (130-400); RDW Coefficient of Variation 16.5 % (11.5-14.5); RDW Standard Deviation 57.3 fL (36.4-46.3); Red Blood Count 3.23 M/uL (4.70-6.10); White Blood Count 5.01 K/ul (4.8-10.8)
[2023-12-06 06:39] LABS: Albumin Globulin Ratio 1.3 (0.9-2); Albumin Level 3.5 gm/dl (3.4-5.0); BUN Creatinine Ratio 21.2 (10-20); Bilirubin,Total 0.8 mg/dl (0.2-1.0); Calcium 8.8 mg/dl (8.6-10.3); Creatinine Clr Calc Pharmacy 46.5 ml/min; Est GFR (African American) 40.2 ml/min; Est GFR (Non-African American) 34.7 ml/min; Globulin 2.7 gm/dl (2.5-4.0); Magnesium 1.7 mg/dl (1.7-2.4); Total Protein 6.2 gm/dl (6.0-8.3)
[2023-12-06] MEDS: FUROSEMIDE 40 MG/4 ML VIAL IV SCH (08:14)
[2023-12-06] MEDS: CHOLECALCIFEROL 125 MCG (5,000 UNITS) TAB PO SCH (08:19)
[2023-12-06] MEDS: ASPIRIN 81 MG ECTAB PO SCH (08:19)
[2023-12-06] MEDS: PHENAZOPYRIDINE HCL 200 MG TAB PO SCH (08:22)
[2023-12-06] MEDS ORDERED: NON-FORMULARY MEDICATION (Coenzyme Q10 [Coq-10] 100 mg Capsule) PO SCH (09:00)
--- NOTE | 2023-12-06 09:14 | Cardiology Progress Note ---
Date of Service December 06, 2023 Assessment & Plan (1) Acute on chronic right-sided heart failure: (2) USHA (acute kidney injury): (3) Chronic atrial fibrillation: (4) History of aortic valve replacement: (5) History of mitral valve replacement: (6) History of endocarditis: (7) Sleep apnea: Plan Acute on chronic decompensated right heart failure Elevated AVR velocities at 3.3 m/s likely consistent with size of valve present. Bioprosthetic mitral valve not well-visualized, with at least moderate prosthetic valve obstruction. Severe pulmonary hypertension, RVSP elevated at greater than 60. Chronic atrial fibrillation/flutter Obstructive sleep apnea, [facility] physiology Recommendations: 1. Continue IV Furosemide 2. Hold off on low dose spironolactone, RE: renal dysfunction 3. Change atenolol 50 BID to metoprolol succinate, 50 BID for now given acute decompensation, likely needing 100 mg BID when compensated. 4. Continue apixaban (Eliquis) anticoagulation 5. Home CPAP QHS and when napping during the day. 6. Maintain telemetry 7. Daily labs 8. Lara catheter 9. Strict I's and O's 10. Daily standing weights if possible 11. Restrict sodium to less than 1,500 mg/day 12. Restrict fluids to less than 2,000 mL/day 13. No NSAID's 14. Reecho next week, additional TTE images of mitral valve prosthesis. I spent a total of 33 minutes on the date of service in preparation, delivery, and documentation of the care provided to this patient excluding any time spent in the performance of separately billed services. This visit was a split-shared visit with the substantive portion of the medical decision making performed by the supervising emergency room registered nurse/billing provider. Admission and Anticipated Discharge Date Admission Date: December 05, 2023 Supervising Physician Co-Signing Physician Notes Patient was seen and personally examined, chart, medications, telemetry reviewed. Assessment and plan as well outlined above. Care and management discussed and personally endorsed with advanced provider Acute on chronic right heart failure with marked volume overload involving abdomen and lower extremities. Responding to IV diuretics but will need to follow renal function closely. Anticoagulant apixaban. Will need to follow his renal function may potentially decline I spent a total of 18 minutes on the date of service in preparation, delivery, and documentation of the care provided to this patient excluding any time spent in the performance of separately billed services Subjective Patient seen and examined. Chart, medications, telemetry reviewed. Feeling less bloated. Frustrated with all the interruptions during breakfast. I's/O's -1250 mL overall, as recorded. December 05, 2023 TTE Interpretation Summary ([facility], Dr. Aals): Normal size left ventricle. Moderate concentric LVH. Normal LV wall motion. Ejection fraction 65 to 70%. Flattened septum consistent with RV pressure overload. Moderate to severely dilated right ventricle. Mild to moderately reduced RV systolic function. Moderately dilated left atrium. Severely dilated right atrium. Bioprosthetic aortic valve. Prosthetic valve leaflets appear mobile. Velocities are increased at 3.3 m/s but likely consistent with size of valve present. No aortic regurgitation is present. Bioprosthetic mitral valve observed, not well-visualized, appearing thickened and possibly restricted mobility. Doppler assessment reflective of moderate prosthetic valve obstruction. Significant mitral regurgitation is absent. Moderate tricuspid regurgitation. RVSP elevated at greater than 60. Telemetry: Coarse atrial fibrillation/flutter, rate controlled Review of Systems Review of Systems: Complete Review of Systems is as stated above, negative, or noncontributory. Physical Exam Physical Exam: General: A&Ox3. NAD. HENT: Normocephalic. Atraumatic. Eyes: PER. Conjunctiva pink, sclera clear. Neck: JVD. Heart: Slightly irregular at 100 bpm. Grade II/ systolic murmur heard best at the LLSB. No diastolic murmur appreciated. No rub. Lungs: Diminished. Clear. No wheeze. Abdomen: +BS. Less firm. Nontender. No masses or organomegaly. Extremities: 2+ chronic indurated edema. No clubbing. No cyanosis. Pulses: radial=2/4, posterior tibial=0/4. Results & Data Vital Signs (Past 12 Hours) Vital Signs Temp Pulse Pulse Resp BP Pulse Ox O2 Del Method 12/06/23 07:50 36.4 C L 67 18 124/73 94 Room Air 12/06/23 06:53 67 12/06/23 03:17 36.6 C 67 18 121/69 97 CPAP 12/05/23 23:06 36.9 C 79 20 112/68 95 Room Air 12/05/23 22:50 73 Laboratory Results Cardiac Enzymes 12/05/23 12/05/2324 Range/Units 11:53 15:00 05:58 AST 18 12 L (13-39) U/L Troponin I High Sens 42.4 H 42.3 H (0-20) pg/ml B-Natriuretic Peptide 1079 H (0-100) pg/ml Coagulation 12/05/23 12/05/23 Range/Units 11:53 15:00 PT Cancelled 12.6 H APTT Cancelled 30 B-Natriuretic Peptide 1079 H (0-100) pg/ml CBC 12/05/23 12/06/23 Range/Units 11:53 05:58 WBC 6.64 5.01 (4.8-10.8) K/ul RBC 3.68 L 3.23 L (4.70-6.10) M/uL Hgb 10.3 L 9.1 L (14.0-18.0) g/dl Hct 34.2 L 30.1 L (42.0-52.0) % Plt Count 198 155 (130-400) K/uL Neut # (Auto) 5.07 3.47 (1.40-6.50) K/uL Lymph # (Auto) 0.64 L 0.62 L (1.20-3.40) K/uL Trigg # (Auto) 0.60 H 0.62 H (0.11-0.59) K/uL Eos # (Auto) 0.29 0.26 (0.00-0.50) K/uL Baso # (Auto) 0.02 0.01 (0.00-0.20) K/uL Comprehensive Metabolic Panel 12/05/23 12/06/23 Range/Units 11:53 05:58 Sodium 137 141 (136-145) mmol/L Potassium 4.2 4.0 (3.5-5.1) mmol/L Chloride 99 102 (98-107) mmol/L Carbon Dioxide 27 32 (21-32) mmol/L BUN 37 H 42 H (6-23) mg/dl Creatinine 1.76 H 1.98 H (0.6-1.4) mg/dl Glucose 81 90 (70-99(Fasting)) mg/dl Calcium 9.8 8.8 (8.6-10.3) mg/dl AST 18 12 L (13-39) U/L ALT 9 7 (7-52) U/L Alkaline Phosphatase 85 75 (34-104) U/L Total Protein 7.4 6.2 (6.0-8.3) gm/dl Albumin 4.2 3.5 (3.4-5.0) gm/dl Intake and Output 12/05/23 12/06/23 12/06/23 22:59 06:59 14:59 Intake Total 100 / 200 100 / 200 Output Total 950 / 1450 500 / 1450 Balance -850 / -1250 -400 / -1250 Intake: Oral 100 / 200 100 / 200 Output: Urine Amount (Catheter) 950 / 1450 500 / 1450 Lara/Indwelling 950 / 1450 500 / 1450 Other: Weight 115.3 kg 115.4 kg Weight Measurement Method Built in [facility] Built in [facility]
[2023-12-06] MEDS: POLYETHYLENE (MIRALAX) 17 GM PACK PO PRN (13:50)
--- NOTE | 2023-12-06 16:00 | Hospitalist Progress Note ---
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 Acute on chronic right-sided heart failure History of bioprosthetic mitral and aortic valve replacements History of endocarditis Elevated troponin Remains stable in telemetry unit Has been feeling much better since admission with diuresis Lara catheter placed, strict I's and O's, daily standing weights, FR 1800 mL Lasix 40mg IV x 1 now and start 40mg IV BID, may need titrated based on response Recent TSH 4.93 and t4 1.3 Serial cardiac enzymes are unremarkable for any ACS and the mild elevation is seems to be demand ischemia Appreciate cardiology input and recommendation Echo of the heart noted Will continue current medications and monitor in the telemetry unit USHA Possible component of CKD, cr elevated > 1.4 since September Pt also reports taking 6 advil daily due to arthritis Avoid nephrotoxic agents, monitor renal function Kidney function is worse with diuretics which is 1.98 as of 12/06/2023 Expected to to be worse with continued diuresis If requires we will involve nephrology and for now monitor PRP and electrolytes Chronic Atrial fibrillation continue atenolol, obtain echo continue apixaban, pt reports only taking once daily due to increased bleeding with twice daily, will administer twice daily while inpt and monitor Rate is controlled and with continue with the current medications Chronic ambulatory dysfunction Hx of CVA due to septic emboli at baseline pt is able to self transfer, but mostly stays in wheel chair PT/OT Scrotal Edema Scrotal wound Chronic b/l venous stasis change consult wound care Secondary to fluid overload and was right-sided heart failure VENUS on CPAP at HS: bringing in machine DVT ppx: Cherelle FULL CODE PCP: Yuriy Dempsey Dispo: admit to PCU for IV diuresis Admission and Anticipated Discharge Date Admission Date: December 05, 2023 Subjective 12/06/2023 The patient was seen and examined in telemetry unit He has been feeling much better since admission Denies any significant symptoms Review of Systems Review of Systems: All systems reviewed and are unremarkable except as noted below Physical Exam Physical Exam: Lying in bed without any acute distress Constitutional: well developed, well nourished, + ill appearing and + obese Eyes: PERRL, conjunctivae normal, anicteric sclerae ENMT: external ear and nose normal, oropharynx normal Neck: trachea midline, no thyromegaly Respiratory: + respiratory distress (None to minimal respiratory distress at rest) Auscultation: + diminished lung sounds and + crackles (Minimal bibasilar crackles) Cardiovascular: Rate/Rhythm: regular rate and regular rhythm; not tachycardic Heart Sounds: normal S1, normal S2 and + murmur (2/6 ESM over precordium) Extremities: + edema (2+ edema bilaterally chronic with skin changes) Gastrointestinal (Abdomen): Inspection/Auscultation: + abdomen distended (Soft) and normal bowel sounds Percussion/Palpation: abdomen soft; abdomen nontender Musculoskeletal: No acute arthritis involving any of the joint Neurologic: normal touch/pain/proprioception and moves all extremities; no focal motor deficits Psychiatric: A+Ox3, euthymic affect Lymphatic: no cervical or axillary lymphadenopathy Results & Data Results & Data Vital Signs (Past 12 Hours) Vital Signs Temp Pulse Pulse Resp BP Pulse Ox O2 Del Method 12/06/23 15:55 37.4 C 83 20 136/77 90 Room Air 12/06/23 11:42 36.9 C 67 18 155/67 H 91 Nasal Cannula 12/06/23 07:50 36.4 C L 67 18 124/73 94 Room Air 12/06/23 06:53 67 O2 Flow Rate 12/06/23 15:55 12/06/23 11:42 1 12/06/23 07:50 12/06/23 06:53 Laboratory Results Short CBC 12/06/23 Range/Units 05:58 WBC 5.01 (4.8-10.8) K/ul Hgb 9.1 L (14.0-18.0) g/dl Hct 30.1 L (42.0-52.0) % Plt Count 155 (130-400) K/uL BMP 12/06/23 05:58 Sodium 141 Potassium 4.0 Chloride 102 Carbon Dioxide 32 BUN 42 H Creatinine 1.98 H Glucose 90 Calcium 8.8 Liver Function 12/06/23 Range/Units 05:58 Total Bilirubin 0.8 (0.2-1.0) mg/dl AST 12 L (13-39) U/L ALT 7 (7-52) U/L Alkaline Phosphatase 75 (34-104) U/L Albumin 3.5 (3.4-5.0) gm/dl Medications Administered Current Inpatient Medications Acetaminophen (Acetaminophen 325 Mg Tab) 650 mg PO Q4H PRN PRN Reason: Pain or Fever Stop: 01/04/24 15:26 Last Admin: 12/05/23 21:07 Dose: 650 mg Apixaban (Apixaban 5 Mg Tablet) 5 mg PO BID [facility] Stop: 01/04/24 20:59 Last Admin: 12/06/23 08:17 Dose: 5 mg Aspirin (Aspirin 81 Mg Ectab) 81 mg PO DAILY [facility] Stop: 01/05/24 08:59 Last Admin: 12/06/23 08:19 Dose: 81 mg Famotidine (Famotidine 20 Mg Tab) 20 mg PO DAILY PRN PRN Reason: Heartburn Stop: 01/04/24 15:26 Furosemide (Furosemide 40 Mg/4 Ml Vial) 40 mg IV BID17 [facility] Stop: 01/05/24 08:59 Last Admin: 12/06/23 08:14 Dose: 40 mg Melatonin (Melatonin 3 Mg Tab) 6 mg PO HS PRN PRN Reason: Sleep Stop: 01/04/24 20:59 Metoprolol Succinate (Metoprolol Succ 50mg Ext Rel Tab) 50 mg PO BID [facility] Stop: 01/05/24 20:59 Ondansetron HCl (Ondansetron Inj 2 Mg/Ml 2 Ml Vial) 4 mg IV Q6H PRN PRN Reason: Nausea Stop: 01/04/24 15:26 Phenazopyridine HCl (Phenazopyridine Hcl 200 Mg Tab) 200 mg PO TID [facility] Stop: 12/08/23 20:59 Last Admin: 12/06/23 13:50 Dose: 200 mg Polyethylene Glycol (Polyethylene (Miralax) 17 Gm Pack) 17 gm PO DAILY PRN PRN Reason: Constipation Stop: 01/04/24 15:26 Last Admin: 12/06/23 13:50 Dose: 17 gm Potassium Chloride (Potassium Chloride Crtab 20 Meq Tabcr) 20 meq PO BID [facility] Stop: 01/04/24 20:59 Last Admin: 12/06/23 08:17 Dose: 20 meq Vitamin D (Cholecalciferol 125 Mcg (5,000 Units) Tab) 125 mcg PO DAILY [facility] Stop: 01/05/24 08:59 Last Admin: 12/06/23 08:19 Dose: 125 mcg
[2023-12-06] MEDS: METOPROLOL SUCC 50MG EXT REL TAB PO SCH (21:50)
--- NOTE | 2023-12-06 22:19 | Electrocardiogram Report ---
Test Reason : Blood Pressure : / mmHG Vent. Rate : 085 BPM Atrial Rate : 000 BPM P-R Int : 000 ms QRS Dur : 088 ms QT Int : 384 ms P-R-T Axes : 000 205 093 degrees QTc Int : 456 ms Atrial flutter Right superior axis deviation Nonspecific ST abnormality Abnormal ECG When compared with ECG of 16-FEB-2020 06:41, Atrial flutter has replaced Sinus rhythm QRS axis Shifted left Nonspecific T wave abnormality now evident in Inferior leads QT has shortened Confirmed by Rudy Tang ([id number]) on 12/06/2023 10:19:20 PM Referred By: REFERRED SELF Confirmed By:Rudy Tang
--- NOTE | 2023-12-06 22:26 | Electrocardiogram Report ---
Test Reason : Blood Pressure : / mmHG Vent. Rate : 067 BPM Atrial Rate : 068 BPM P-R Int : 192 ms QRS Dur : 112 ms QT Int : 452 ms P-R-T Axes : 000 063 242 degrees QTc Int : 477 ms Possible Atrial flutter Nonspecific ST abnormality Abnormal ECG When compared with ECG of 05-DEC-2023 11:47, No significant change Confirmed by Rudy Tang ([id number]) on 12/06/2023 10:26:40 PM Referred By: REFERRED SELF Confirmed By:Rudy Tang
[2023-12-07 07:30] LABS: Basophils # (auto) 0.01 K/uL (0.00-0.20); Basophils % (auto) 0.2 %; Eosinophils # (auto) 0.28 K/uL (0.00-0.50); Eosinophils % (auto) 4.9 %; Hematocrit (blood only) 30.4 % (42.0-52.0); Hemoglobin 9.4 g/dl (14.0-18.0); Immature Granulocytes # (auto) 0.03 K/uL (0.01-0.20); Immature Granulocytes % (auto) 0.5 %; Lymphocytes # (auto) 0.57 K/uL (1.20-3.40); Mean Corpuscular Hemoglobin 28.6 pg (25.0-34.0); Mean Corpuscular Hgb Conc 30.9 g/dL (32.0-36.0); Mean Corpuscular Volume 92.4 fL (80.0-100.0); Mean Platelet Volume 11.2 fL (9.4-12.4); Monocytes # (auto) 0.66 K/uL (0.11-0.59); Monocytes % (auto) 11.5 %; Neutrophils # (auto) 4.17 K/uL (1.40-6.50); Neutrophils % (auto) 72.9 %; Platelet Count 162 K/uL (130-400); RDW Coefficient of Variation 16.7 % (11.5-14.5); RDW Standard Deviation 56.8 fL (36.4-46.3); Red Blood Count 3.29 M/uL (4.70-6.10); White Blood Count 5.72 K/ul (4.8-10.8)
[2023-12-07 07:36] LABS: BUN Creatinine Ratio 22.7 (10-20); Calcium 9.2 mg/dl (8.6-10.3); Creatinine Clr Calc Pharmacy 52.3 ml/min; Est GFR (African American) 46.3 ml/min; Magnesium 1.6 mg/dl (1.7-2.4); Phosphorus 3.5 mg/dl (2.5-4.9); Potassium 3.4 mmol/L (3.5-5.1)
[2023-12-07] MEDS: POTASSIUM CHLORIDE CRTAB 20 MEQ TABCR PO STA (08:59)
[2023-12-07] MEDS: MAGNESIUM OXIDE 400 MG TAB PO SCH (08:59)
--- NOTE | 2023-12-07 09:06 | Cardiology Progress Note ---
Date of Service December 07, 2023 Assessment & Plan (1) Acute on chronic right-sided heart failure: (2) USHA (acute kidney injury): (3) Chronic atrial fibrillation: (4) History of aortic valve replacement: (5) History of mitral valve replacement: (6) History of endocarditis: (7) Sleep apnea: Plan Improving signs and symptoms of acute on chronic decompensated right heart failure Elevated AVR velocities at 3.3 m/s likely consistent with size of valve present. Bioprosthetic mitral valve not well-visualized, with at least moderate prosthetic valve obstruction. Severe pulmonary hypertension, RVSP elevated at greater than 60. Chronic atrial fibrillation/flutter Obstructive sleep apnea, Pickwickian physiology Recommendations: 1. Continue IV Furosemide 2. Additional potassium supplementation now 3. Continue apixaban (Eliquis) anticoagulation 4. Home CPAP QHS and when napping during the day. 5. Maintain telemetry 6. Daily labs 7. Lara catheter 8. Strict I's and O's 9. Daily standing weights if possible 10. Restrict sodium to less than 1,500 mg/day 11. Restrict fluids to less than 2,000 mL/day 12. No NSAID's 13. Reecho next week, additional TTE images of mitral valve prosthesis. 14. Atenolol 50 BID change to metoprolol succinate 50 BID for now, likely needin g 100 mg BID when compensated. 15. ? Future trial of low dose spironolactone I spent a total of 22 minutes on the date of service in preparation, delivery, and documentation of the care provided to this patient excluding any time spent in the performance of separately billed services. This visit was a split-shared visit with the substantive portion of the medical decision making performed by the supervising grease maker/billing provider. Admission and Anticipated Discharge Date Admission Date: December 05, 2023 Supervising Physician Co-Signing Physician Notes Patient was seen and personally examined, chart, medications, telemetry reviewed. Assessment and plan as well outlined above. Care and management discussed and personally endorsed with advanced provider Acute on chronic right heart failure with marked volume overload involving abdo men and lower extremities. Responding to IV diuretics, greater than 4-1/2 L diuresis to date. Renal function improved from day prior We will continue IV diuretics with full plan as above encourage patient to use CPAP during the night as well as while sleeping during the day I spent a total of 18 minutes on the date of service in preparation, delivery, and documentation of the care provided to this patient excluding any time spent in the performance of separately billed services Subjective Patient seen and examined. Chart, medications, telemetry reviewed. Feeling better overall. Less edematous. No chest pain. Improved dyspnea. No palpitations. I's/O's -1250 mL, -3,481 ml, negative 4,731 mls overall Telemetry: Coarse atrial fibrillation/flutter, 100 bpm currently, rate controlled over the last 24 hours. December 05, 2023 TTE Interpretation Summary ([facility], Dr. Alas): Normal size left ventricle. Moderate concentric LVH. Normal LV wall motion. Ejection fraction 65 to 70%. Flattened septum consistent with RV pressure overload. Moderate to severely dilated right ventricle. Mild to moderately reduced RV systolic function. Moderately dilated left atrium. Severely dilated right atrium. Bioprosthetic aortic valve. Prosthetic valve leaflets appear mobile. Velocities are increased at 3.3 m/s but likely consistent with size of valve present. No aortic regurgitation is present. Bioprosthetic mitral valve observed, not well-visualized, appearing thickened and possibly restricted mobility. Doppler assessment reflective of moderate prosthetic valve obstruction. Significant mitral regurgitation is absent. Moderate tricuspid regurgitation. RVSP elevated at greater than 60. Review of Systems Review of Systems: Complete Review of Systems is as stated above, negative, or noncontributory. Physical Exam Physical Exam: General: A&Ox3. NAD. HENT: Normocephalic. Atraumatic. Eyes: PER. Conjunctiva pink, sclera clear. Neck: JVD. Heart: Irregularly irregular at 104 bpm. Grade II/ systolic murmur heard best at the LLSB. No diastolic murmur appreciated. No rub. Lungs: Diminished. Clear. No wheeze. Abdomen: +BS. Less firm. Nontender. No masses or organomegaly. Extremities: 1-2+ chronic indurated edema. No clubbing. No cyanosis. Pulses: radial=2/4, posterior tibial=0/4. Results & Data Vital Signs (Past 12 Hours) Vital Signs Temp Pulse Pulse Resp BP Pulse Ox O2 Del Method 12/07/23 08:28 69 12/07/23 07:58 36.8 C 74 18 121/70 90 Room Air 12/07/23 04:00 36.5 C 73 20 122/71 87 L Room Air 12/06/23 23:30 87 12/06/23 23:29 36.5 C 73 18 117/62 91 Room Air Laboratory Results CBC 12/07/23 Range/Units 06:52 WBC 5.72 (4.8-10.8) K/ul RBC 3.29 L (4.70-6.10) M/uL Hgb 9.4 L (14.0-18.0) g/dl Hct 30.4 L (42.0-52.0) % Plt Count 162 (130-400) K/uL Neut # (Auto) 4.17 (1.40-6.50) K/uL Lymph # (Auto) 0.57 L (1.20-3.40) K/uL [place] # (Auto) 0.66 H (0.11-0.59) K/uL Eos # (Auto) 0.28 (0.00-0.50) K/uL Baso # (Auto) 0.01 (0.00-0.20) K/uL Comprehensive Metabolic Panel 12/07/23 Range/Units 06:52 Sodium 143 (136-145) mmol/L Potassium 3.4 L (3.5-5.1) mmol/L Chloride 99 (98-107) mmol/L Carbon Dioxide 35 H (21-32) mmol/L BUN 40 H (6-23) mg/dl Creatinine 1.76 H (0.6-1.4) mg/dl Glucose 90 (70-99(Fasting)) mg/dl Calcium 9.2 (8.6-10.3) mg/dl Intake and Output 12/06/23 12/07/23 12/07/23 22:59 06:59 14:59 Intake Total 480 / 1320 100 / 1320 Output Total 2801 / 4801 1000 / 4801 Balance -2321 / -3481 -900 / -3481 Intake: Oral 480 / 1320 100 / 1320 Output: Urine Amount (Catheter) 2800 / 4800 1000 / 4800 Lara/Indwelling 2800 / 4800 1000 / 4800 # Bowel Movements
--- NOTE | 2023-12-07 15:52 | Hospitalist Progress Note ---
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 Acute on chronic right-sided heart failure History of bioprosthetic mitral and aortic valve replacements History of endocarditis Elevated troponin Remains stable in telemetry unit Has been feeling much better since admission with diuresis Lara catheter placed, strict I's and O's, daily standing weights, FR 1800 mL Lasix 40mg IV x 1 now and start 40mg IV BID, may need titrated based on response Recent TSH 4.93 and t4 1.3 Serial cardiac enzymes are unremarkable for any ACS and the mild elevation is seems to be demand ischemia Appreciate cardiology input and recommendation Echo of the heart noted Will continue current medications and monitor in the telemetry unit Has had negative balance of 6432 mL and he has been feeling a lot better Electrolytes will be adjusted and will continue the current dose of diuretics USHA Possible component of CKD, cr elevated > 1.4 since September Pt also reports taking 6 advil daily due to arthritis Avoid nephrotoxic agents, monitor renal function Kidney function is worse with diuretics which is 1.98 as of 12/06/2023 Expected to to be worse with continued diuresis If requires we will involve nephrology and for now monitor PRP and electrolytes Kidney function has been stable and will monitor Chronic Atrial fibrillation continue atenolol, obtain echo continue apixaban, pt reports only taking once daily due to increased bleeding with twice daily, will administer twice daily while inpt and monitor Rate is controlled and with continue with the current medications Slightly tachycardic at 105 and will observe Chronic ambulatory dysfunction Hx of CVA due to septic emboli at baseline pt is able to self transfer, but mostly stays in wheel chair PT/OT Scrotal Edema Scrotal wound Chronic b/l venous stasis change consult wound care Secondary to fluid overload and was right-sided heart failure Edema has been slightly better VENUS on CPAP at HS: bringing in machine DVT ppx: Cherelle FULL CODE PCP: Yuriy Dempsey Dispo: admit to PCU for IV diuresis Admission and Anticipated Discharge Date Admission Date: December 05, 2023 Subjective 12/06/2023 The patient was seen and examined in telemetry unit He has been feeling much better since admission Denies any significant symptoms 12/07/2023 Patient was seen and examined in telemetry unit He has been feeling much better and has had minus more than 4 L of fluid He denies any chest pain, palpitation or shortness of breath Review of Systems Review of Systems: All systems reviewed and are unremarkable except as noted below Physical Exam Physical Exam: Lying in bed without any acute distress Constitutional: well developed, well nourished, + ill appearing and + obese Eyes: PERRL, conjunctivae normal, anicteric sclerae ENMT: external ear and nose normal, oropharynx normal Neck: trachea midline, no thyromegaly Respiratory: + respiratory distress (None to minimal respiratory distress at rest) Auscultation: + diminished lung sounds and + crackles (Minimal bibasilar crackles) Cardiovascular: Rate/Rhythm: regular rate and regular rhythm; not tachycardic Heart Sounds: normal S1, normal S2 and + murmur (2/6 ESM over precordium) Extremities: + edema (2+ edema bilaterally chronic with skin changes) Gastrointestinal (Abdomen): Inspection/Auscultation: + abdomen distended (Soft) and normal bowel sounds Percussion/Palpation: abdomen soft; abdomen nontender Neurologic: normal touch/pain/proprioception and moves all extremities; no focal motor deficits Psychiatric: A+Ox3, euthymic affect Lymphatic: no cervical or axillary lymphadenopathy Results & Data Results & Data Vital Signs (Past 12 Hours) Vital Signs Temp Pulse Pulse Resp BP Pulse Ox O2 Del Method 12/07/23 15:23 105 H 12/07/23 15:12 36.2 C L 77 16 114/70 89 L CPAP 12/07/23 11:22 36.7 C 84 16 122/73 89 L Room Air 12/07/23 08:28 69 12/07/23 08:00 Room Air 12/07/23 07:58 36.8 C 74 18 121/70 90 Room Air 12/07/23 04:00 36.5 C 73 20 122/71 87 L Room Air Laboratory Results Short CBC 12/07/23 Range/Units 06:52 WBC 5.72 (4.8-10.8) K/ul Hgb 9.4 L (14.0-18.0) g/dl Hct 30.4 L (42.0-52.0) % Plt Count 162 (130-400) K/uL BMP 12/07/23 06:52 Sodium 143 Potassium 3.4 L Chloride 99 Carbon Dioxide 35 H BUN 40 H Creatinine 1.76 H Glucose 90 Calcium 9.2 Medications Administered Current Inpatient Medications Acetaminophen (Acetaminophen 325 Mg Tab) 650 mg PO Q4H PRN PRN Reason: Pain or Fever Stop: 01/04/24 15:26 Last Admin: 12/05/23 21:07 Dose: 650 mg Apixaban (Apixaban 5 Mg Tablet) 5 mg PO BID PIPER Stop: 01/04/24 20:59 Last Admin: 12/07/23 08:49 Dose: 5 mg Aspirin (Aspirin 81 Mg Ectab) 81 mg PO DAILY PIPER Stop: 01/05/24 08:59 Last Admin: 12/07/23 08:49 Dose: 81 mg Famotidine (Famotidine 20 Mg Tab) 20 mg PO DAILY PRN PRN Reason: Heartburn Stop: 01/04/24 15:26 Furosemide (Furosemide 40 Mg/4 Ml Vial) 40 mg IV [id number] [facility] Stop: 01/05/24 08:59 Last Admin: 12/07/23 08:59 Dose: 40 mg Magnesium Oxide (Magnesium Oxide 400 Mg Tab) 400 mg PO BID PIPER Stop: 01/06/24 08:59 Last Admin: 12/07/23 08:59 Dose: 400 mg Melatonin (Melatonin 3 Mg Tab) 6 mg PO HS PRN PRN Reason: Sleep Stop: 01/04/24 20:59 Metoprolol Succinate (Metoprolol Succ 50mg Ext Rel Tab) 50 mg PO BID PIPER Stop: 01/05/24 20:59 Last Admin: 12/07/23 08:49 Dose: 50 mg Ondansetron HCl (Ondansetron Inj 2 Mg/Ml 2 Ml Vial) 4 mg IV Q6H PRN PRN Reason: Nausea Stop: 01/04/24 15:26 Phenazopyridine HCl (Phenazopyridine Hcl 200 Mg Tab) 200 mg PO TID [facility] Stop: 12/08/23 20:59 Last Admin: 12/07/23 14:09 Dose: 200 mg Polyethylene Glycol (Polyethylene (Miralax) 17 Gm Pack) 17 gm PO DAILY PRN PRN Reason: Constipation Stop: 01/04/24 15:26 Last Admin: 12/06/23 13:50 Dose: 17 gm Potassium Chloride (Potassium Chloride Crtab 20 Meq Tabcr) 20 meq PO BID [facility] Stop: 01/04/24 20:59 Last Admin: 12/07/23 09:07 Dose: 20 meq Vitamin D (Cholecalciferol 125 Mcg (5,000 Units) Tab) 125 mcg PO DAILY [facility] Stop: 01/05/24 08:59 Last Admin: 12/07/23 08:49 Dose: 125 mcg
[2023-12-08 05:13] LABS: Basophils # (auto) 0.01 K/uL (0.00-0.20); Basophils % (auto) 0.2 %; Eosinophils # (auto) 0.29 K/uL (0.00-0.50); Hematocrit (blood only) 29.2 % (42.0-52.0); Immature Granulocytes # (auto) 0.02 K/uL (0.01-0.20); Immature Granulocytes % (auto) 0.3 %; Lymphocytes # (auto) 0.67 K/uL (1.20-3.40); Lymphocytes % (auto) 11.5 %; Mean Corpuscular Hemoglobin 28.7 pg (25.0-34.0); Mean Corpuscular Hgb Conc 30.8 g/dL (32.0-36.0); Mean Platelet Volume 11.1 fL (9.4-12.4); Monocytes # (auto) 0.78 K/uL (0.11-0.59); Monocytes % (auto) 13.4 %; Neutrophils # (auto) 4.04 K/uL (1.40-6.50); Neutrophils % (auto) 69.6 %; Platelet Count 165 K/uL (130-400); RDW Coefficient of Variation 16.7 % (11.5-14.5); RDW Standard Deviation 56.4 fL (36.4-46.3); Red Blood Count 3.14 M/uL (4.70-6.10); White Blood Count 5.81 K/ul (4.8-10.8)
[2023-12-08 05:26] LABS: BUN Creatinine Ratio 26.3 (10-20); Calcium 9.5 mg/dl (8.6-10.3); Creatinine Clr Calc Pharmacy 57.5 ml/min; Est GFR (Non-African American) 44.9 ml/min; Magnesium 1.6 mg/dl (1.7-2.4); Phosphorus 3.4 mg/dl (2.5-4.9); Potassium 3.6 mmol/L (3.5-5.1)
--- NOTE | 2023-12-08 08:45 | Cardiology Progress Note ---
Date of Service December 08, 2023 Assessment & Plan (1) Acute on chronic right-sided heart failure: (2) USHA (acute kidney injury): (3) Chronic atrial fibrillation: (4) History of aortic valve replacement: (5) History of mitral valve replacement: (6) History of endocarditis: (7) Sleep apnea: Plan Improving signs and symptoms of acute on chronic decompensated right heart failure Elevated AVR velocities at 3.3 m/s likely consistent with size of valve present. Bioprosthetic mitral valve not well-visualized, with at least moderate prosthetic valve obstruction. Severe pulmonary hypertension, RVSP elevated at greater than 60. Chronic atrial fibrillation/flutter Obstructive sleep apnea, Pickwickian physiology Recommendations: 1. Continue IV Furosemide as prescribed 2. Additional potassium and magnesium supplementation ordered 3. Trial low dose spironolactone tomorrow if creatinine improved. 4. Continue apixaban (Eliquis) anticoagulation 5. Home CPAP QHS and when napping during the day. 6. Maintain telemetry 7. Daily labs 8. Continue Lara catheter, strict I's and O's, sodium and fluid restrictions, No NSAID's 9. Reecho next week, additional TTE images of mitral valve prosthesis 10. Atenolol changed to metoprolol succinate this admission, rates acceptably controlled. This visit was a split-shared visit with the substantive portion of the medical decision making performed by the supervising plant and instrument engineer/billing provider. Please refer to Dr. Alas's documentation. Admission and Anticipated Discharge Date Admission Date: December 05, 2023 Supervising Physician Co-Signing Physician Notes . Assessment and plan as well outlined above. Care and management discussed and personally endorsed with advanced provider Acute on chronic right heart failure with marked volume overload involving abdomen and lower extremities. Responding to IV diuretics renal function stable We will continue IV diuretics with full plan as above encourage patient to use CPAP during the night as well as while sleeping during the day I spent a total of 15 minutes on the date of service in preparation, delivery, and documentation of the care provided to this patient excluding any time spent in the performance of separately billed services Subjective Patient seen and examined. Chart, medications, telemetry reviewed. Feeling better overall. Less bloated. Intermittent cough productive of phlegm. No subjective fevers or chills. No chest pain or discomfort. No palpitations. I's/O's -1250 mL, -3,481 ml, -3,501 (-8,232 mL's overall) Telemetry: Atrial flutter, 70's to the low 100's. Review of Systems Review of Systems: Complete Review of Systems is as stated above, negative, or noncontributory. Physical Exam Physical Exam: General: A&Ox3. NAD. HENT: Normocephalic. Atraumatic. Eyes: PER. Conjunctiva pink, sclera clear. Neck: JVD. Heart: Irregularly irregular 100 bpm. Grade II/ systolic murmur heard best at the LLSB. No diastolic murmur appreciated. No rub. Lungs: Diminished at the bases. Clear. No wheeze. No rales. No rhonchi. Abdomen: +BS. Less firm. Nontender. No masses or organomegaly. Extremities: 1-2+ chronic indurated edema. No clubbing. No cyanosis. Pulses: radial=2/4, posterior tibial=0/4. Results & Data Vital Signs (Past 12 Hours) Vital Signs Temp Pulse Pulse Resp BP Pulse Ox O2 Del Method 12/08/23 07:59 37.1 C 78 18 104/59 L 92 Nasal Cannula 12/08/23 07:36 71 12/08/23 03:08 36.6 C 77 18 118/69 93 BiPAP 12/07/23 22:52 37.0 C 100 H 18 125/72 93 CPAP 12/07/23 21:50 107 H O2 Flow Rate 12/08/23 07:59 3 12/08/23 07:36 12/08/23 03:08 12/07/23 22:52 3 12/07/23 21:50 Laboratory Results CBC 12/08/23 Range/Units 04:41 WBC 5.81 (4.8-10.8) K/ul RBC 3.14 L (4.70-6.10) M/uL Hgb 9.0 L (14.0-18.0) g/dl Hct 29.2 L (42.0-52.0) % Plt Count 165 (130-400) K/uL Neut # (Auto) 4.04 (1.40-6.50) K/uL Lymph # (Auto) 0.67 L (1.20-3.40) K/uL [place] # (Auto) 0.78 H (0.11-0.59) K/uL Eos # (Auto) 0.29 (0.00-0.50) K/uL Baso # (Auto) 0.01 (0.00-0.20) K/uL Comprehensive Metabolic Panel 12/08/23 Range/Units 04:41 Sodium 142 (136-145) mmol/L Potassium 3.6 (3.5-5.1) mmol/L Chloride 98 (98-107) mmol/L Carbon Dioxide 36 H (21-32) mmol/L BUN 42 H (6-23) mg/dl Creatinine 1.60 H (0.6-1.4) mg/dl Glucose 105 H (70-99(Fasting)) mg/dl Calcium 9.5 (8.6-10.3) mg/dl Intake and Output 12/07/23 12/08/23 12/08/23 22:59 06:59 14:59 Intake Total 650 / 750 100 / 750 Output Total 2200 / 4251 850 / 4251 Balance -1550 / -3501 -750 / -3501 Intake: Oral 650 / 750 100 / 750 Output: Urine Amount (Catheter) 2200 / 4250 850 / 4250 Lara/Indwelling 2200 / 4250 850 / 4250 Other: Weight 114.6 kg Patient Weight 12/09/23 06:59 Weight 114.6 kg Diagnostic Findings December 05, 2023 TTE Interpretation Summary ([facility], Dr. Alas): Normal size left ventricle. Moderate concentric LVH. Normal LV wall motion. Ejection fraction 65 to 70%. Flattened septum consistent with RV pressure overload. Moderate to severely dilated right ventricle. Mild to moderately reduced RV systolic function. Moderately dilated left atrium. Severely dilated right atrium. Bioprosthetic aortic valve. Prosthetic valve leaflets appear mobile. Velocities are increased at 3.3 m/s but likely consistent with size of valve present. No aortic regurgitation is present. Bioprosthetic mitral valve observed, not well-visualized, appearing thickened and possibly restricted mobility. Doppler assessment reflective of moderate prosthetic valve obstruction. Significant mitral regurgitation is absent. Moderate tricuspid regurgitation. RVSP elevated at greater than 60.
[2023-12-08] MEDS: MAGNESIUM SULFATE / D5W 1 GM/100 ML BAG IV SCH (09:47)
[2023-12-08] MEDS: POTASSIUM CHLORIDE 10 MEQ TABCR PO ONE (09:47)
--- NOTE | 2023-12-08 14:00 | Hospitalist Progress Note ---
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 Acute on chronic right-sided heart failure History of bioprosthetic mitral and aortic valve replacements History of endocarditis Elevated troponin Remains stable in telemetry unit Has been feeling much better since admission with diuresis Lara catheter placed, strict I's and O's, daily standing weights, FR 1800 mL Lasix 40mg IV x 1 now and start 40mg IV BID, may need titrated based on response Recent TSH 4.93 and t4 1.3 Serial cardiac enzymes are unremarkable for any ACS and the mild elevation is seems to be demand ischemia Appreciate cardiology input and recommendation Echo of the heart noted Will continue current medications and monitor in the telemetry unit Has had negative balance of 6432 Electrolytes will be adjusted and will continue the current dose of diuretics Clinically much better today and has had negative balance of 8132 mL Will continue current intravenous furosemide and monitor PRP and electrolytes USHA Possible component of CKD, cr elevated > 1.4 since September Pt also reports taking 6 advil daily due to arthritis Avoid nephrotoxic agents, monitor renal function Kidney function is worse with diuretics which is 1.98 as of 12/06/2023 Expected to to be worse with continued diuresis If requires we will involve nephrology and for now monitor PRP and electrolytes Kidney function has been stable and will monitor Chronic Atrial fibrillation continue atenolol, obtain echo continue apixaban, pt reports only taking once daily due to increased bleeding with twice daily, will administer twice daily while inpt and monitor Rate is controlled and with continue with the current medications Slightly tachycardic at 105 and will observe Heart rate is better controlled today at 70 Chronic ambulatory dysfunction Hx of CVA due to septic emboli at baseline pt is able to self transfer, but mostly stays in wheel chair PT/OT-Appreciate PT and OT input and recommended to continue therapy in the hospital for now Scrotal Edema Scrotal wound Chronic b/l venous stasis change consult wound care Secondary to fluid overload and was right-sided heart failure Edema has been slightly better VENUS on CPAP at HS: bringing in machine DVT ppx: Eliquis FULL CODE PCP: Yuriy Dempsey Dispo: admit to PCU for IV diuresis Admission and Anticipated Discharge Date Admission Date: December 05, 2023 Subjective 12/06/2023 The patient was seen and examined in telemetry unit He has been feeling much better since admission Denies any significant symptoms 12/07/2023 Patient was seen and examined in telemetry unit He has been feeling much better and has had minus more than 4 L of fluid He denies any chest pain, palpitation or shortness of breath 12/08/2023 The patient was seen and examined in telemetry unit He has been feeling much better and saturating normally on 3 L now Has had enough diuresis Denies any cardiac symptoms Review of Systems Review of Systems: All systems reviewed and are unremarkable except as noted below Physical Exam Physical Exam: Lying in bed without any acute distress Constitutional: well developed, well nourished, + ill appearing and + obese Eyes: PERRL, conjunctivae normal, anicteric sclerae ENMT: external ear and nose normal, oropharynx normal Neck: trachea midline, no thyromegaly Respiratory: + respiratory distress (None to minimal respiratory distress at rest) Auscultation: + diminished lung sounds and + crackles (Minimal bibasilar crackles) Cardiovascular: Rate/Rhythm: regular rate and regular rhythm; not tachycardic Heart Sounds: normal S1, normal S2 and + murmur (2/6 ESM over precordium) Extremities: + edema (2+ edema bilaterally chronic with skin changes) Gastrointestinal (Abdomen): Inspection/Auscultation: + abdomen distended (Soft) and normal bowel sounds Percussion/Palpation: abdomen soft; abdomen nontender Neurologic: normal touch/pain/proprioception and moves all extremities; no focal motor deficits Psychiatric: A+Ox3, euthymic affect Lymphatic: no cervical or axillary lymphadenopathy Results & Data Results & Data Vital Signs (Past 12 Hours) Vital Signs Temp Pulse Pulse Resp BP Pulse Ox O2 Del Method 12/08/23 12:14 36.6 C 70 18 115/66 90 Room Air 12/08/23 08:00 Nasal Cannula 12/08/23 07:59 37.1 C 78 18 104/59 L 92 Nasal Cannula 12/08/23 07:36 71 12/08/23 03:08 36.6 C 77 18 118/69 93 BiPAP O2 Flow Rate 12/08/23 12:14 12/08/23 08:00 3 12/08/23 07:59 3 12/08/23 07:36 12/08/23 03:08 Laboratory Results Short CBC 12/08/23 Range/Units 04:41 WBC 5.81 (4.8-10.8) K/ul Hgb 9.0 L (14.0-18.0) g/dl Hct 29.2 L (42.0-52.0) % Plt Count 165 (130-400) K/uL BMP 12/08/23 04:41 Sodium 142 Potassium 3.6 Chloride 98 Carbon Dioxide 36 H BUN 42 H Creatinine 1.60 H Glucose 105 H Calcium 9.5 Medications Administered Current Inpatient Medications Acetaminophen (Acetaminophen 325 Mg Tab) 650 mg PO Q4H PRN PRN Reason: Pain or Fever Stop: 01/04/24 15:26 Last Admin: 12/08/23 06:47 Dose: 650 mg Apixaban (Apixaban 5 Mg Tablet) 5 mg PO BID [facility] Stop: 01/04/24 20:59 Last Admin: 12/08/23 08:38 Dose: 5 mg Aspirin (Aspirin 81 Mg Ectab) 81 mg PO DAILY [facility] Stop: 01/05/24 08:59 Last Admin: 12/08/23 08:38 Dose: 81 mg Famotidine (Famotidine 20 Mg Tab) 20 mg PO DAILY PRN PRN Reason: Heartburn Stop: 01/04/24 15:26 Furosemide (Furosemide 40 Mg/4 Ml Vial) 40 mg IV BID17 [facility] Stop: 01/05/24 08:59 Last Admin: 12/08/23 08:38 Dose: 40 mg Magnesium Oxide (Magnesium Oxide 400 Mg Tab) 400 mg PO BID [facility] Stop: 01/06/24 08:59 Last Admin: 12/08/23 08:38 Dose: 400 mg Melatonin (Melatonin 3 Mg Tab) 6 mg PO HS PRN PRN Reason: Sleep Stop: 01/04/24 20:59 Metoprolol Succinate (Metoprolol Succ 50mg Ext Rel Tab) 50 mg PO BID [facility] Stop: 01/05/24 20:59 Last Admin: 12/08/23 08:38 Dose: 50 mg Ondansetron HCl (Ondansetron Inj 2 Mg/Ml 2 Ml Vial) 4 mg IV Q6H PRN PRN Reason: Nausea Stop: 01/04/24 15:26 Phenazopyridine HCl (Phenazopyridine Hcl 200 Mg Tab) 200 mg PO TID [facility] Stop: 12/08/23 20:59 Last Admin: 12/08/23 08:38 Dose: 200 mg Polyethylene Glycol (Polyethylene (Miralax) 17 Gm Pack) 17 gm PO DAILY PRN PRN Reason: Constipation Stop: 01/04/24 15:26 Last Admin: 12/06/23 13:50 Dose: 17 gm Potassium Chloride (Potassium Chloride Crtab 20 Meq Tabcr) 20 meq PO BID [facility] Stop: 01/04/24 20:59 Last Admin: 12/08/23 08:38 Dose: 20 meq Vitamin D (Cholecalciferol 125 Mcg (5,000 Units) Tab) 125 mcg PO DAILY [facility] Stop: 01/05/24 08:59 Last Admin: 12/08/23 08:38 Dose: 125 mcg
[2023-12-09 08:57] LABS: Basophils # (auto) 0.01 K/uL (0.00-0.20); Basophils % (auto) 0.2 %; Eosinophils % (auto) 6.3 %; Hematocrit (blood only) 31.5 % (42.0-52.0); Hemoglobin 9.3 g/dl (14.0-18.0); Immature Granulocytes # (auto) 0.03 K/uL (0.01-0.20); Immature Granulocytes % (auto) 0.5 %; Lymphocytes # (auto) 0.59 K/uL (1.20-3.40); Lymphocytes % (auto) 9.3 %; Mean Corpuscular Hgb Conc 29.5 g/dL (32.0-36.0); Mean Corpuscular Volume 94.9 fL (80.0-100.0); Mean Platelet Volume 10.9 fL (9.4-12.4); Monocytes # (auto) 0.76 K/uL (0.11-0.59); Neutrophils # (auto) 4.53 K/uL (1.40-6.50); Neutrophils % (auto) 71.7 %; Platelet Count 169 K/uL (130-400); RDW Coefficient of Variation 16.7 % (11.5-14.5); RDW Standard Deviation 58.4 fL (36.4-46.3); Red Blood Count 3.32 M/uL (4.70-6.10); White Blood Count 6.32 K/ul (4.8-10.8)
[2023-12-09 09:19] LABS: Calcium 9.4 mg/dl (8.6-10.3); Potassium 3.9 mmol/L (3.5-5.1)
[2023-12-09 09:24] LABS: BUN Creatinine Ratio 26.9 (10-20); Creatinine Clr Calc Pharmacy 58.8 ml/min; Est GFR (African American) 53.6 ml/min; Est GFR (Non-African American) 46.3 ml/min; Phosphorus 3.2 mg/dl (2.5-4.9)
[2023-12-09] MEDS: AMMONIUM LACTATE 12% LOTION 225 GM BTL EXT SCH (11:16)
--- NOTE | 2023-12-09 13:06 | Cardiology Progress Note ---
Date of Service December 09, 2023 Assessment & Plan (1) Acute on chronic right-sided heart failure: (2) USHA (acute kidney injury): (3) Chronic atrial fibrillation: (4) History of aortic valve replacement: (5) History of mitral valve replacement: (6) History of endocarditis: (7) Sleep apnea: Plan Improving signs and symptoms of acute on chronic decompensated right heart failure Elevated AVR velocities at 3.3 m/s likely consistent with size of valve present. Bioprosthetic mitral valve not well-visualized, with at least moderate prosthetic valve obstruction. Severe pulmonary hypertension, RVSP elevated at greater than 60. Chronic atrial fibrillation/flutter Obstructive sleep apnea, [place] physiology Recommendations: 1. Continue IV Furosemide as prescribed 2. Additional potassium supplementation ordered 3. Hold off on adding low dose spironolactone for now. 4. Continue apixaban (Eliquis) anticoagulation 5. Home CPAP QHS and when napping during the day. 6. Maintain telemetry 7. Daily labs 8. Continue Lara catheter, strict I's and O's, sodium and fluid restrictions, No NSAID's 9. Atenolol changed to metoprolol succinate this admission; may need to increase metoprolol after diuresis. Admission and Anticipated Discharge Date Admission Date: December 05, 2023 Supervising Physician Co-Signing Physician Notes Attending attestation: Case reviewed with the advanced practitioner. I have personally performed a history and physical examination on the patient. I have reviewed the advanced practitioner's documentation on the date of service referenced in note, and I agree with, and take responsibility for the plan of care. Acute on chronic right heart failure with massive volume overload. Making progr ess on IV diuretics. Renal function stable. Continue IV furosemide, Lara catheter. I spent a total of 20 minutes coordinating, documenting, and providing care for this patient excluding time spent in the performance of separately billed services or time spent by another provider. Armin Young, Subjective Patient seen and examined. Chart, medications, telemetry reviewed. Notes improvement every day. Intermittent cough productive of phlegm. Scrotal edema has improved by 50%. No fevers or chills. No chest pain or discomfort. No palpitations. I's/O's: -1250 mL, -3,481 ml, -3,501, -1,067 mLs (-9,299 mL's overall) Telemetry: Atrial flutter in the low 100's, occasional PVC. Review of Systems Review of Systems: Complete Review of Systems is as stated above, negative, or noncontributory. Physical Exam Physical Exam: General: A&Ox3. NAD. HENT: Normocephalic. Atraumatic. Eyes: PER. Conjunctiva pink, sclera clear. Neck: JVD. Heart: Irregularly irregular 100 bpm. Grade II/ systolic murmur heard best at the LLSB. No diastolic murmur appreciated. No rub. Lungs: Diminished at the bases. Clear. No wheeze. No rales. No rhonchi. Abdomen: +BS. Less firm. Extremities: 1-2+ chronic indurated edema. No clubbing. No cyanosis. Pulses: radial=2/4, posterior tibial=0/4. Results & Data Vital Signs (Past 12 Hours) Vital Signs Temp Pulse Pulse Resp BP Pulse Ox O2 Del Method 12/09/23 12:14 37.1 C 87 21 116/70 87 L Room Air 12/09/23 08:15 36.7 C 106 H 19 131/75 86 L Room Air 12/09/23 07:45 Nasal Cannula 12/09/23 07:32 71 12/09/23 04:00 36.5 C 76 20 123/74 93 Room Air, CPAP O2 Flow Rate 12/09/23 12:14 12/09/23 08:15 12/09/23 07:45 2 12/09/23 07:32 12/09/23 04:00 Laboratory Results CBC 12/09/23 Range/Units 08:30 WBC 6.32 (4.8-10.8) K/ul RBC 3.32 L (4.70-6.10) M/uL Hgb 9.3 L (14.0-18.0) g/dl Hct 31.5 L (42.0-52.0) % Plt Count 169 (130-400) K/uL Neut # (Auto) 4.53 (1.40-6.50) K/uL Lymph # (Auto) 0.59 L (1.20-3.40) K/uL Crisp # (Auto) 0.76 H (0.11-0.59) K/uL Eos # (Auto) 0.40 (0.00-0.50) K/uL Baso # (Auto) 0.01 (0.00-0.20) K/uL Comprehensive Metabolic Panel 12/09/23 Range/Units 08:30 Sodium 143 (136-145) mmol/L Potassium 3.9 (3.5-5.1) mmol/L Chloride 97 L (98-107) mmol/L Carbon Dioxide 40 H (21-32) mmol/L BUN 42 H (6-23) mg/dl Creatinine 1.56 H (0.6-1.4) mg/dl Glucose 108 H (70-99(Fasting)) mg/dl Calcium 9.4 (8.6-10.3) mg/dl Intake and Output 12/08/23 12/09/23 12/09/23 22:59 06:59 14:59 Intake Total 120 / 1085 Output Total 1201 / 2152 2151 Balance -1081 / -1067 -1 / -1067 Intake: Oral 120 / 885 Output: Urine Amount (Catheter) 1199 / 0 Lara/Indwelling 1199 # Bowel Movements
[2023-12-09] MEDS: POTASSIUM CHLORIDE 10 MEQ TABCR PO ONE (13:30)
--- NOTE | 2023-12-09 15:32 | Hospitalist Progress Note ---
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 Acute on chronic right-sided heart failure History of bioprosthetic mitral and aortic valve replacements History of endocarditis Elevated troponin Remains stable in telemetry unit Has been feeling much better since admission with diuresis Lara catheter placed, strict I's and O's, daily standing weights, FR 1800 mL Lasix 40mg IV x 1 now and start 40mg IV BID, may need titrated based on response Recent TSH 4.93 and t4 1.3 Serial cardiac enzymes are unremarkable for any ACS and the mild elevation is seems to be demand ischemia Appreciate cardiology input and recommendation Echo of the heart noted Will continue current medications and monitor in the telemetry unit Has had negative balance of 6432 Electrolytes will be adjusted and will continue the current dose of diuretics Clinically much better today and has had negative balance of 8132 mL Will continue current intravenous furosemide and monitor PRP and electrolytes Clinically much better with cumulative negative balance of 9849 mL Will continue intravenous Lasix for now and monitor electrolytes USHA Possible component of CKD, cr elevated > 1.4 since September Pt also reports taking 6 advil daily due to arthritis Avoid nephrotoxic agents, monitor renal function Kidney function is worse with diuretics which is 1.98 as of 12/06/2023 Expected to to be worse with continued diuresis If requires we will involve nephrology and for now monitor PRP and electrolytes Kidney function remains stable with BUN/creatinine of 42/1.56 as of 12/09/2023 which seems to be stable Chronic Atrial fibrillation continue atenolol, obtain echo continue apixaban, pt reports only taking once daily due to increased bleeding with twice daily, will administer twice daily while inpt and monitor Rate is controlled and with continue with the current medications Slightly tachycardic at 105 and will observe Heart rate is better controlled today at 70 Chronic ambulatory dysfunction Hx of CVA due to septic emboli at baseline pt is able to self transfer, but mostly stays in wheel chair PT/OT-Appreciate PT and OT input and recommended to continue therapy in the hospital for now Scrotal Edema Scrotal wound Chronic b/l venous stasis change consult wound care Secondary to fluid overload and was right-sided heart failure Edema has been much better VENUS on CPAP at HS: bringing in machine DVT ppx: Cherelle FULL CODE PCP: Yuriy Dempsey Dispo: admit to PCU for IV diuresis Admission and Anticipated Discharge Date Admission Date: December 05, 2023 Subjective 12/06/2023 The patient was seen and examined in telemetry unit He has been feeling much better since admission Denies any significant symptoms 12/07/2023 Patient was seen and examined in telemetry unit He has been feeling much better and has had minus more than 4 L of fluid He denies any chest pain, palpitation or shortness of breath 12/08/2023 The patient was seen and examined in telemetry unit He has been feeling much better and saturating normally on 3 L now Has had enough diuresis Denies any cardiac symptoms 12/09/2023 The patient was seen and examined in telemetry unit He has been feeling much better and has been requiring 2 L to maintain saturation now Denies any chest pain, palpitation or shortness of breath Edema of the legs and edema of the scrotum are much better Review of Systems Review of Systems: All systems reviewed and are unremarkable except as noted below Physical Exam Physical Exam: Lying in bed without any acute distress Constitutional: well developed, well nourished, + ill appearing and + obese Eyes: PERRL, conjunctivae normal, anicteric sclerae ENMT: external ear and nose normal, oropharynx normal Neck: trachea midline, no thyromegaly Respiratory: + respiratory distress (None to minimal respiratory distress at rest) Auscultation: + diminished lung sounds and + crackles (Minimal bibasilar crackles) Cardiovascular: Rate/Rhythm: regular rate and regular rhythm; not tachycardic Heart Sounds: normal S1, normal S2 and + murmur (2/6 ESM over precordium) Extremities: + edema (1+ edema bilaterally chronic with skin changes) Gastrointestinal (Abdomen): Inspection/Auscultation: + abdomen distended (Soft) and normal bowel sounds Percussion/Palpation: abdomen soft; abdomen nontender Neurologic: normal touch/pain/proprioception and moves all extremities; no focal motor deficits Psychiatric: A+Ox3, euthymic affect Lymphatic: no cervical or axillary lymphadenopathy Results & Data Results & Data Vital Signs (Past 12 Hours) Vital Signs Temp Pulse Pulse Resp BP Pulse Ox O2 Del Method 12/09/23 13:15 94 Nasal Cannula 12/09/23 12:14 37.1 C 87 21 116/70 87 L Room Air 12/09/23 08:15 36.7 C 106 H 19 131/75 86 L Room Air 12/09/23 07:45 Nasal Cannula 12/09/23 07:32 71 12/09/23 04:00 36.5 C 76 20 123/74 93 Room Air, CPAP O2 Flow Rate 12/09/23 13:15 2 12/09/23 12:14 12/09/23 08:15 12/09/23 07:45 2 12/09/23 07:32 12/09/23 04:00 Laboratory Results Short CBC 12/09/23 Range/Units 08:30 WBC 6.32 (4.8-10.8) K/ul Hgb 9.3 L (14.0-18.0) g/dl Hct 31.5 L (42.0-52.0) % Plt Count 169 (130-400) K/uL BMP 12/09/23 08:30 Sodium 143 Potassium 3.9 Chloride 97 L Carbon Dioxide 40 H BUN 42 H Creatinine 1.56 H Glucose 108 H Calcium 9.4 Medications Administered Current Inpatient Medications Acetaminophen (Acetaminophen 325 Mg Tab) 650 mg PO Q4H PRN PRN Reason: Pain or Fever Stop: 01/04/24 15:26 Last Admin: 12/08/23 20:26 Dose: 650 mg Apixaban (Apixaban 5 Mg Tablet) 5 mg PO BID [facility] Stop: 01/04/24 20:59 Last Admin: 12/09/23 08:30 Dose: 5 mg Aspirin (Aspirin 81 Mg Ectab) 81 mg PO DAILY [facility] Stop: 01/05/24 08:59 Last Admin: 12/09/23 08:30 Dose: 81 mg Famotidine (Famotidine 20 Mg Tab) 20 mg PO DAILY PRN PRN Reason: Heartburn Stop: 01/04/24 15:26 Furosemide (Furosemide 40 Mg/4 Ml Vial) 40 mg IV BID17 [facility] Stop: 01/05/24 08:59 Last Admin: 12/09/23 08:30 Dose: 40 mg Lactic Acid (Ammonium Lactate 12% Lotion 225 Gm Btl) 1 gm EXT BID [facility] Stop: 01/08/24 10:44 Last Admin: 12/09/23 11:16 Dose: 1 gm Magnesium Oxide (Magnesium Oxide 400 Mg Tab) 400 mg PO BID [facility] Stop: 01/06/24 08:59 Last Admin: 12/09/23 08:30 Dose: 400 mg Melatonin (Melatonin 3 Mg Tab) 6 mg PO HS PRN PRN Reason: Sleep Stop: 01/04/24 20:59 Metoprolol Succinate (Metoprolol Succ 50mg Ext Rel Tab) 50 mg PO BID [facility] Stop: 01/05/24 20:59 Last Admin: 12/09/23 08:30 Dose: 50 mg Ondansetron HCl (Ondansetron Inj 2 Mg/Ml 2 Ml Vial) 4 mg IV Q6H PRN PRN Reason: Nausea Stop: 01/04/24 15:26 Polyethylene Glycol (Polyethylene (Miralax) 17 Gm Pack) 17 gm PO DAILY PRN PRN Reason: Constipation Stop: 01/04/24 15:26 Last Admin: 12/06/23 13:50 Dose: 17 gm Potassium Chloride (Potassium Chloride Crtab 20 Meq Tabcr) 20 meq PO BID [facility] Stop: 01/04/24 20:59 Last Admin: 12/09/23 08:30 Dose: 20 meq Vitamin D (Cholecalciferol 125 Mcg (5,000 Units) Tab) 125 mcg PO DAILY [facility] Stop: 01/05/24 08:59 Last Admin: 12/09/23 08:30 Dose: 125 mcg
[2023-12-10 06:41] LABS: BUN Creatinine Ratio 26.6 (10-20); Calcium 9.3 mg/dl (8.6-10.3); Creatinine Clr Calc Pharmacy 47.3 ml/min; Est GFR (African American) 43.9 ml/min; Est GFR (Non-African American) 37.9 ml/min; Phosphorus 3.2 mg/dl (2.5-4.9)
--- NOTE | 2023-12-10 12:40 | Cardiology Progress Note ---
Date of Service December 10, 2023 Assessment & Plan (1) Acute on chronic right-sided heart failure: (2) USHA (acute kidney injury): (3) Chronic atrial fibrillation: (4) History of aortic valve replacement: (5) History of mitral valve replacement: (6) History of endocarditis: (7) Sleep apnea: Plan Improving signs and symptoms of acute on chronic decompensated right heart failure Elevated AVR velocities at 3.3 m/s likely consistent with size of valve present. Bioprosthetic mitral valve not well-visualized, with at least moderate prosthetic valve obstruction. Severe pulmonary hypertension, RVSP elevated at greater than 60. Chronic atrial fibrillation/flutter Obstructive sleep apnea, [facility] physiology Recommendations: 1. Continue IV Furosemide as prescribed.Creatinine trending up slightly as of 12/10/2023, continue 40 mg of furosemide twice daily for now, with plans to potentially reduce dose and discontinue Lara catheter on 12/11/2023. 2. Continue potassium supplementation. 3. Hold off on adding low dose spironolactone for now. 4. Continue apixaban (Eliquis) anticoagulation 5. Home CPAP QHS and when napping during the day. 6. Maintain telemetry 7. Daily labs 8. Continue Lara catheter, strict I's and O's, sodium and fluid restrictions, No NSAID's 9. Atenolol changed to metoprolol succinate this admission; may need to increase metoprolol after diuresis. Admission and Anticipated Discharge Date Admission Date: December 05, 2023 Subjective Patient seen in cardiology follow-up. He notes that he feels like his swelling and breathing has improved significantly. Continues to diurese. If intake and output is correct, net -11 L thus far this admission. Lara catheter remains in place draining clear yellow urine. Telemetry reveals atrial fibrillation in the 80s. Physical Exam Physical Exam: General: A&Ox3. NAD. HENT: Normocephalic. Atraumatic. Eyes: PER. Conjunctiva pink, sclera clear. Neck: JVD. Heart: Irregularly irregular 100 bpm. Grade II/ systolic murmur heard best at the LLSB. No diastolic murmur appreciated. No rub. Lungs: Diminished at the bases. Clear. No wheeze. No rales. No rhonchi. Abdomen: +BS. Less firm. Extremities: 1-2+ chronic indurated edema. No clubbing. No cyanosis. Pulses: radial=2/4, posterior tibial=0/4. Results & Data Vital Signs (Past 12 Hours) Vital Signs Temp Pulse Resp BP Pulse Ox O2 Del Method O2 Flow Rate 12/10/23 11:10 36.2 C L 81 17 102/65 96 Nasal Cannula 2 12/10/23 08:00 Nasal Cannula 2 12/10/23 07:45 36.9 C 107 H 18 112/67 Nasal Cannula 2 12/10/23 03:26 37.0 C 105 H 18 100/57 L 92 Nasal Cannula 2 Laboratory Results Comprehensive Metabolic Panel 12/10/23 Range/Units 05:59 Sodium 143 (136-145) mmol/L Potassium 4.0 (3.5-5.1) mmol/L Chloride 97 L (98-107) mmol/L Carbon Dioxide 39 H (21-32) mmol/L BUN 49 H (6-23) mg/dl Creatinine 1.84 H (0.6-1.4) mg/dl Glucose 103 H (70-99(Fasting)) mg/dl Calcium 9.3 (8.6-10.3) mg/dl Intake and Output 12/09/23 12/10/23 12/10/23 22:59 06:59 14:59 Intake Total 675 / 1325 50 / 1325 250 / 250 Output Total 1900 / 3750 700 / 3750 Balance -1225 / -2425 -650 / -2425 250 / 250 Intake: Oral 675 / 1325 50 / 1325 250 / 250 Output: Urine 400 / 400 Urine Amount (Catheter) 1500 / 3350 700 / 3350 Lara/Indwelling 1500 / 3350 700 / 3350 Other: Weight 103.6 kg
--- NOTE | 2023-12-10 16:37 | Hospitalist Progress Note ---
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 Acute on chronic right-sided heart failure History of bioprosthetic mitral and aortic valve replacements History of endocarditis Elevated troponin Remains stable in telemetry unit Has been feeling much better since admission with diuresis Lara catheter placed, strict I's and O's, daily standing weights, FR 1800 mL Lasix 40mg IV x 1 now and start 40mg IV BID, may need titrated based on response Recent TSH 4.93 and t4 1.3 Serial cardiac enzymes are unremarkable for any ACS and the mild elevation is seems to be demand ischemia Appreciate cardiology input and recommendation Echo of the heart noted Will continue current medications and monitor in the telemetry unit Has had negative balance of 6432 Electrolytes will be adjusted and will continue the current dose of diuretics Clinically much better today and has had negative balance of 8132 mL Will continue current intravenous furosemide and monitor PRP and electrolytes Clinically much better with cumulative negative balance of 9849 mL Will continue intravenous Lasix for now and monitor electrolytes Clinically much improved with cumulative negative balance of 12,834 mL Plan to continue intravenous Lasix today and monitor creatinine tomorrow and possible transition to oral furosemide Will ask for PT OT evaluation Will DC Lara as well USHA Possible component of CKD, cr elevated > 1.4 since September Pt also reports taking 6 advil daily due to arthritis Avoid nephrotoxic agents, monitor renal function Kidney function is worse with diuretics which is 1.98 as of 12/06/2023 Expected to to be worse with continued diuresis If requires we will involve nephrology and for now monitor PRP and electrolytes Kidney function remains stable with BUN/creatinine of 42/1.56 as of 12/09/2023 which seems to be stable Kidney function has been deteriorating with BUN and creatinine up at 49/1.8 Expected to come down with discontinuation of Lasix and giving smaller doses Chronic Atrial fibrillation continue atenolol, obtain echo continue apixaban, pt reports only taking once daily due to increased bleeding with twice daily, will administer twice daily while inpt and monitor Rate is controlled and with continue with the current medications Slightly tachycardic at 105 and will observe Heart rate is better controlled today at 70 Little tachycardic likely complicated by mild dehydration Chronic ambulatory dysfunction Hx of CVA due to septic emboli at baseline pt is able to self transfer, but mostly stays in wheel chair PT/OT-Appreciate PT and OT input and recommended to continue therapy in the hospital for now Scrotal Edema Scrotal wound Chronic b/l venous stasis change consult wound care Secondary to fluid overload and was right-sided heart failure Edema has been much better Edema of the scrotum has improved a lot VENUS on CPAP at HS: bringing in machine DVT ppx: Cherelle FULL CODE PCP: Yuriy Dempsey Dispo: admit to PCU for IV diuresis Admission and Anticipated Discharge Date Admission Date: December 05, 2023 Subjective 12/06/2023 The patient was seen and examined in telemetry unit He has been feeling much better since admission Denies any significant symptoms 12/07/2023 Patient was seen and examined in telemetry unit He has been feeling much better and has had minus more than 4 L of fluid He denies any chest pain, palpitation or shortness of breath 12/08/2023 The patient was seen and examined in telemetry unit He has been feeling much better and saturating normally on 3 L now Has had enough diuresis Denies any cardiac symptoms 12/09/2023 The patient was seen and examined in telemetry unit He has been feeling much better and has been requiring 2 L to maintain saturation now Denies any chest pain, palpitation or shortness of breath Edema of the legs and edema of the scrotum are much better 12/10/2023 The patient was seen and examined in telemetry unit He has been stable without any cardiac or respiratory symptoms Ambulating in the room without any difficulties Has been diuresing enough. Review of Systems Review of Systems: All systems reviewed and are unremarkable except as noted below Physical Exam Physical Exam: Lying in bed without any acute distress Constitutional: well developed, well nourished, + ill appearing and + obese Eyes: PERRL, conjunctivae normal, anicteric sclerae ENMT: external ear and nose normal, oropharynx normal Neck: trachea midline, no thyromegaly Respiratory: + respiratory distress (None to minimal respiratory distress at rest) Auscultation: + diminished lung sounds and + crackles (Minimal bibasilar crackles) Cardiovascular: Rate/Rhythm: regular rate and regular rhythm; not tachycardic Heart Sounds: normal S1, normal S2 and + murmur (2/6 ESM over precordium) Extremities: + edema (1+ edema bilaterally chronic with skin changes) Gastrointestinal (Abdomen): Inspection/Auscultation: + abdomen distended (Soft) and normal bowel sounds Percussion/Palpation: abdomen soft; abdomen nontender Neurologic: normal touch/pain/proprioception and moves all extremities; no focal motor deficits Psychiatric: A+Ox3, euthymic affect Lymphatic: no cervical or axillary lymphadenopathy Results & Data Results & Data Vital Signs (Past 12 Hours) Vital Signs Temp Pulse Resp BP Pulse Ox O2 Del Method O2 Flow Rate 12/10/23 14:37 36.5 C 101 H 17 104/65 94 Nasal Cannula 2 12/10/23 11:10 36.2 C L 81 17 102/65 96 Nasal Cannula 2 12/10/23 08:00 Nasal Cannula 2 12/10/23 07:45 36.9 C 107 H 18 112/67 Nasal Cannula 2 Laboratory Results [facility] [place] 12/10/23 05:59 Sodium 143 Potassium 4.0 Chloride 97 L Carbon Dioxide 39 H BUN 49 H Creatinine 1.84 H Glucose 103 H Calcium 9.3 Medications Administered Current Inpatient Medications Acetaminophen (Acetaminophen 325 Mg Tab) 650 mg PO Q4H PRN PRN Reason: Pain or Fever Stop: 01/04/24 15:26 Last Admin: 12/10/23 09:22 Dose: 650 mg Apixaban (Apixaban 5 Mg Tablet) 5 mg PO BID [facility] Stop: 01/04/24 20:59 Last Admin: 12/10/23 07:53 Dose: 5 mg Aspirin (Aspirin 81 Mg Ectab) 81 mg PO DAILY [facility] Stop: 01/05/24 08:59 Last Admin: 12/10/23 07:53 Dose: 81 mg Famotidine (Famotidine 20 Mg Tab) 20 mg PO DAILY PRN PRN Reason: Heartburn Stop: 01/04/24 15:26 Furosemide (Furosemide 40 Mg/4 Ml Vial) 40 mg IV BID17 [facility] Stop: 01/05/24 08:59 Last Admin: 12/10/23 16:32 Dose: 40 mg Lactic Acid (Ammonium Lactate 12% Lotion 225 Gm Btl) 1 gm EXT BID [facility] Stop: 01/08/24 10:44 Last Admin: 12/10/23 07:53 Dose: 1 gm Magnesium Oxide (Magnesium Oxide 400 Mg Tab) 400 mg PO BID [facility] Stop: 01/06/24 08:59 Last Admin: 12/10/23 07:53 Dose: 400 mg Melatonin (Melatonin 3 Mg Tab) 6 mg PO HS PRN PRN Reason: Sleep Stop: 01/04/24 20:59 Metoprolol Succinate (Metoprolol Succ 25mg Ext Rel Tab) 75 mg PO BID [facility] Stop: 01/09/24 20:59 Ondansetron HCl (Ondansetron Inj 2 Mg/Ml 2 Ml Vial) 4 mg IV Q6H PRN PRN Reason: Nausea Stop: 01/04/24 15:26 Polyethylene Glycol (Polyethylene (Miralax) 17 Gm Pack) 17 gm PO DAILY PRN PRN Reason: Constipation Stop: 01/04/24 15:26 Last Admin: 12/06/23 13:50 Dose: 17 gm Potassium Chloride (Potassium Chloride Crtab 20 Meq Tabcr) 20 meq PO BID [facility] Stop: 01/04/24 20:59 Last Admin: 12/10/23 09:22 Dose: 20 meq Vitamin D (Cholecalciferol 125 Mcg (5,000 Units) Tab) 125 mcg PO DAILY [facility] Stop: 01/05/24 08:59 Last Admin: 12/10/23 07:53 Dose: 125 mcg
[2023-12-10] MEDS: METOPROLOL SUCC 25MG EXT REL TAB PO SCH (21:01)
[2023-12-11 06:39] LABS: Basophils # (auto) 0.01 K/uL (0.00-0.20); Basophils % (auto) 0.2 %; Eosinophils # (auto) 0.45 K/uL (0.00-0.50); Eosinophils % (auto) 9.3 %; Hematocrit (blood only) 27.7 % (42.0-52.0); Hemoglobin 8.6 g/dl (14.0-18.0); Immature Granulocytes # (auto) 0.01 K/uL (0.01-0.20); Immature Granulocytes % (auto) 0.2 %; Lymphocytes # (auto) 0.52 K/uL (1.20-3.40); Lymphocytes % (auto) 10.7 %; Mean Corpuscular Hemoglobin 28.9 pg (25.0-34.0); Mean Platelet Volume 11.2 fL (9.4-12.4); Monocytes # (auto) 0.64 K/uL (0.11-0.59); Monocytes % (auto) 13.2 %; Neutrophils # (auto) 3.22 K/uL (1.40-6.50); Neutrophils % (auto) 66.4 %; Platelet Count 179 K/uL (130-400); RDW Coefficient of Variation 16.1 % (11.5-14.5); RDW Standard Deviation 54.8 fL (36.4-46.3); Red Blood Count 2.98 M/uL (4.70-6.10); White Blood Count 4.85 K/ul (4.8-10.8)
[2023-12-11 07:01] LABS: BUN Creatinine Ratio 31.2 (10-20); Calcium 9.1 mg/dl (8.6-10.3); Creatinine Clr Calc Pharmacy 45.6 ml/min; Est GFR (African American) 42.5 ml/min; Est GFR (Non-African American) 36.7 ml/min; Magnesium 2.1 mg/dl (1.7-2.4); Phosphorus 4.3 mg/dl (2.5-4.9); Potassium 3.9 mmol/L (3.5-5.1)
--- NOTE | 2023-12-11 11:34 | Cardiology Progress Note ---
Date of Service December 11, 2023 Assessment & Plan (1) Acute on chronic right-sided heart failure: (2) USHA (acute kidney injury): (3) Chronic atrial fibrillation: (4) History of aortic valve replacement: (5) History of mitral valve replacement: (6) History of endocarditis: (7) Sleep apnea: Plan Improving signs and symptoms of acute on chronic decompensated right heart failure Elevated AVR velocities at 3.3 m/s likely consistent with size of valve present. Bioprosthetic mitral valve not well-visualized, with at least moderate prosthetic valve obstruction. Severe pulmonary hypertension, RVSP elevated at greater than 60. Chronic atrial fibrillation/flutter Obstructive sleep apnea, [facility] physiology Repeat echo on 12/10/23, revealed unchanged valve indices. Recommendations: 1. DC IV furosemide and change to oral torsemide 20 mg daily -DC Lara catheter 2. Continue potassium supplementation. 3. Hold off on adding low dose spironolactone for now. 4. Continue apixaban (Eliquis) anticoagulation 5. Home CPAP QHS and when napping during the day. Increase activity. Admission and Anticipated Discharge Date Admission Date: December 05, 2023 Subjective Patient seen in cardiology follow-up of his chief complaint of shortness of breath and leg and abdominal edema. Is continue to diurese well. Net fluid balance -13 L. Physical Exam Physical Exam: General: A&Ox3. NAD. HENT: Normocephalic. Atraumatic. Eyes: PER. Conjunctiva pink, sclera clear. Neck: JVD. Heart: Irregularly irregular 100 bpm. Grade II/ systolic murmur heard best at the LLSB. No diastolic murmur appreciated. No rub. Lungs: Diminished at the bases. Clear. No wheeze. No rales. No rhonchi. Abdomen: +BS. Less firm. Extremities: 1+ chronic indurated edema. No clubbing. No cyanosis, chronic stasis dermatitis Results & Data Vital Signs (Past 12 Hours) Vital Signs Temp Pulse Pulse Resp BP Pulse Ox O2 Del Method 12/11/23 10:44 36.3 C L 82 17 103/63 97 Nasal Cannula 12/11/23 09:30 Nasal Cannula 12/11/23 07:41 36.7 C 86 19 113/68 92 Oxymask 12/11/23 06:15 76 12/11/23 04:00 88 CPAP 12/11/23 03:08 37.3 C 97 H 18 99/58 L 93 CPAP 12/11/23 00:00 107 H O2 Flow Rate 12/11/23 10:44 2 12/11/23 09:30 2 12/11/23 07:41 2 12/11/23 06:15 12/11/23 04:00 2 12/11/23 03:08 12/11/23 00:00 Laboratory Results CBC 12/11/23 Range/Units 06:03 WBC 4.85 (4.8-10.8) K/ul RBC 2.98 L (4.70-6.10) M/uL Hgb 8.6 L (14.0-18.0) g/dl Hct 27.7 L (42.0-52.0) % Plt Count 179 (130-400) K/uL Neut # (Auto) 3.22 (1.40-6.50) K/uL Lymph # (Auto) 0.52 L (1.20-3.40) K/uL [place] # (Auto) 0.64 H (0.11-0.59) K/uL Eos # (Auto) 0.45 (0.00-0.50) K/uL Baso # (Auto) 0.01 (0.00-0.20) K/uL Comprehensive Metabolic Panel 12/11/23 Range/Units 06:03 Sodium 143 (136-145) mmol/L Potassium 3.9 (3.5-5.1) mmol/L Chloride 98 (98-107) mmol/L Carbon Dioxide 39 H (21-32) mmol/L BUN 59 H (6-23) mg/dl Creatinine 1.89 H (0.6-1.4) mg/dl Glucose 92 (70-99(Fasting)) mg/dl Calcium 9.1 (8.6-10.3) mg/dl Intake and Output 12/10/23 12/11/23 12/11/23 22:59 06:59 14:59 Intake Total 250 / 840 100 / 840 Output Total 525 / 5 Balance 250 / -1285 -425 / -1285 Intake: Oral 250 / 840 100 / 840 Output: Urine Amount (Catheter) 525 / 2124 Lara/Indwelling / 2124 Other: Weight 101.5 kg
--- NOTE | 2023-12-11 15:24 | Hospitalist Progress Note ---
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 Acute on chronic right-sided heart failure History of bioprosthetic mitral and aortic valve replacements History of endocarditis Elevated troponin Remains stable in telemetry unit Has been feeling much better since admission with diuresis Lara catheter placed, strict I's and O's, daily standing weights, FR 1800 mL Lasix 40mg IV x 1 now and start 40mg IV BID, may need titrated based on response Recent TSH 4.93 and t4 1.3 Serial cardiac enzymes are unremarkable for any ACS and the mild elevation is seems to be demand ischemia Appreciate cardiology input and recommendation Echo of the heart noted Will continue current medications and monitor in the telemetry unit Has had negative balance of 6432 Electrolytes will be adjusted and will continue the current dose of diuretics Clinically much better today and has had negative balance of 8132 mL Will continue current intravenous furosemide and monitor PRP and electrolytes Clinically much better with cumulative negative balance of 9849 mL Will continue intravenous Lasix for now and monitor electrolytes Clinically much improved with cumulative negative balance of 12,834 mL Plan to continue intravenous Lasix today and monitor creatinine tomorrow and possible transition to oral furosemide Discontinue Lasix and monitor PRBC tomorrow and other electrolytes Ask for PT OT evaluation Will DC Lara as well USHA Possible component of CKD, cr elevated > 1.4 since September Pt also reports taking 6 advil daily due to arthritis Avoid nephrotoxic agents, monitor renal function Kidney function is worse with diuretics which is 1.98 as of 12/06/2023 Expected to to be worse with continued diuresis If requires we will involve nephrology and for now monitor PRP and electrolytes Kidney function remains stable with BUN/creatinine of 42/1.56 as of 12/09/2023 which seems to be stable Kidney function has been deteriorating with BUN and creatinine up at 49/1.8 Expected to come down with discontinuation of Lasix and giving smaller doses Creatinine has been going up gradually which is expected and will monitor Chronic Atrial fibrillation continue atenolol, obtain echo continue apixaban, pt reports only taking once daily due to increased bleeding with twice daily, will administer twice daily while inpt and monitor Rate is controlled and with continue with the current medications Slightly tachycardic at 105 and will observe Heart rate is better controlled today at 70 Little tachycardic likely complicated by mild dehydration Heart rate remains high at around 99 Chronic ambulatory dysfunction Hx of CVA due to septic emboli at baseline pt is able to self transfer, but mostly stays in wheel chair PT/OT-Appreciate PT and OT input and recommended to continue therapy in the hospital for now Scrotal Edema Scrotal wound Chronic b/l venous stasis change consult wound care Secondary to fluid overload and was right-sided heart failure Edema has been much better Edema of the scrotum has improved a lot VENUS on CPAP at HS: bringing in machine DVT ppx: Cherelle FULL CODE PCP: Yuriy Dempsey Dispo: admit to PCU for IV diuresis Admission and Anticipated Discharge Date Admission Date: December 05, 2023 Subjective 12/06/2023 The patient was seen and examined in telemetry unit He has been feeling much better since admission Denies any significant symptoms 12/07/2023 Patient was seen and examined in telemetry unit He has been feeling much better and has had minus more than 4 L of fluid He denies any chest pain, palpitation or shortness of breath 12/08/2023 The patient was seen and examined in telemetry unit He has been feeling much better and saturating normally on 3 L now Has had enough diuresis Denies any cardiac symptoms 12/09/2023 The patient was seen and examined in telemetry unit He has been feeling much better and has been requiring 2 L to maintain saturation now Denies any chest pain, palpitation or shortness of breath Edema of the legs and edema of the scrotum are much better 12/10/2023 The patient was seen and examined in telemetry unit He has been stable without any cardiac or respiratory symptoms Ambulating in the room without any difficulties Has been diuresing enough. 12/11/2023 The patient was seen and examined in telemetry unit He has been feeling much better Has had diuresis over 13 L since admission Denies any significant symptoms Review of Systems Review of Systems: All systems reviewed and are unremarkable except as noted below Physical Exam Physical Exam: Lying in bed without any acute distress Constitutional: well developed, well nourished, + ill appearing and + obese Eyes: PERRL, conjunctivae normal, anicteric sclerae ENMT: external ear and nose normal, oropharynx normal Neck: trachea midline, no thyromegaly Respiratory: + respiratory distress (None to minimal respiratory distress at rest) Auscultation: + diminished lung sounds and + crackles (Minimal bibasilar crackles) Cardiovascular: Rate/Rhythm: regular rate and regular rhythm; not tachycardic Heart Sounds: normal S1, normal S2 and + murmur (2/6 ESM over precordium) Extremities: + edema (1+ edema bilaterally chronic with skin changes) Gastrointestinal (Abdomen): Inspection/Auscultation: + abdomen distended (Soft) and normal bowel sounds Percussion/Palpation: abdomen soft; abdomen nontender Skin: Bilateral leg swelling is much better.Scrotal swelling has improved Neurologic: normal touch/pain/proprioception and moves all extremities; no focal motor deficits Psychiatric: A+Ox3, euthymic affect Lymphatic: no cervical or axillary lymphadenopathy Results & Data Results & Data Vital Signs (Past 12 Hours) Vital Signs Temp Pulse Pulse Resp BP Pulse Ox O2 Del Method 12/11/23 14:24 36.7 C 99 H 17 100/63 96 Nasal Cannula 12/11/23 13:44 108 H 12/11/23 10:44 36.3 C L 82 17 103/63 97 Nasal Cannula 12/11/23 09:30 Nasal Cannula 12/11/23 07:41 36.7 C 86 19 113/68 92 Oxymask 12/11/23 06:15 76 12/11/23 04:00 88 CPAP O2 Flow Rate 12/11/23 14:24 2 12/11/23 13:44 12/11/23 10:44 2 12/11/23 09:30 2 12/11/23 07:41 2 12/11/23 06:15 12/11/23 04:00 2 Laboratory Results Short CBC 12/11/23 Range/Units 06:03 WBC 4.85 (4.8-10.8) K/ul Hgb 8.6 L (14.0-18.0) g/dl Hct 27.7 L (42.0-52.0) % Plt Count 179 (130-400) K/uL BMP 12/11/23 06:03 Sodium 143 Potassium 3.9 Chloride 98 Carbon Dioxide 39 H BUN 59 H Creatinine 1.89 H Glucose 92 Calcium 9.1 Medications Administered Current Inpatient Medications Acetaminophen (Acetaminophen 325 Mg Tab) 650 mg PO Q4H PRN PRN Reason: Pain or Fever Stop: 01/04/24 15:26 Last Admin: 12/10/23 09:22 Dose: 650 mg Apixaban (Apixaban 5 Mg Tablet) 5 mg PO BID [facility] Stop: 01/04/24 20:59 Last Admin: 12/11/23 09:36 Dose: 5 mg Aspirin (Aspirin 81 Mg Ectab) 81 mg PO DAILY [facility] Stop: 01/05/24 08:59 Last Admin: 12/11/23 09:36 Dose: 81 mg Famotidine (Famotidine 20 Mg Tab) 20 mg PO DAILY PRN PRN Reason: Heartburn Stop: 01/04/24 15:26 Lactic Acid (Ammonium Lactate 12% Lotion 225 Gm Btl) 1 gm EXT BID [facility] Stop: 01/08/24 10:44 Last Admin: 12/11/23 09:36 Dose: 1 gm Magnesium Oxide (Magnesium Oxide 400 Mg Tab) 400 mg PO BID [facility] Stop: 01/06/24 08:59 Last Admin: 12/11/23 09:36 Dose: 400 mg Melatonin (Melatonin 3 Mg Tab) 6 mg PO HS PRN PRN Reason: Sleep Stop: 01/04/24 20:59 Metoprolol Succinate (Metoprolol Succ 25mg Ext Rel Tab) 75 mg PO BID [facility] Stop: 01/09/24 20:59 Last Admin: 12/11/23 09:36 Dose: 75 mg Ondansetron HCl (Ondansetron Inj 2 Mg/Ml 2 Ml Vial) 4 mg IV Q6H PRN PRN Reason: Nausea Stop: 01/04/24 15:26 Polyethylene Glycol (Polyethylene (Miralax) 17 Gm Pack) 17 gm PO DAILY PRN PRN Reason: Constipation Stop: 01/04/24 15:26 Last Admin: 12/06/23 13:50 Dose: 17 gm Potassium Chloride (Potassium Chloride Crtab 20 Meq Tabcr) 20 meq PO BID [facility] Stop: 01/04/24 20:59 Last Admin: 12/11/23 09:39 Dose: 20 meq Torsemide (Torsemide 20 Mg Tab) 20 mg PO QAM [facility] Stop: 01/11/24 08:59 Vitamin D (Cholecalciferol 125 Mcg (5,000 Units) Tab) 125 mcg PO DAILY [facility] Stop: 01/05/24 08:59 Last Admin: 12/11/23 09:36 Dose: 125 mcg
[2023-12-12 06:27] LABS: Basophils # (auto) 0.01 K/uL (0.00-0.20); Basophils % (auto) 0.2 %; Eosinophils # (auto) 0.48 K/uL (0.00-0.50); Eosinophils % (auto) 9.7 %; Hematocrit (blood only) 28.3 % (42.0-52.0); Hemoglobin 8.8 g/dl (14.0-18.0); Immature Granulocytes # (auto) 0.02 K/uL (0.01-0.20); Immature Granulocytes % (auto) 0.4 %; Lymphocytes # (auto) 0.57 K/uL (1.20-3.40); Lymphocytes % (auto) 11.5 %; Mean Corpuscular Hemoglobin 28.9 pg (25.0-34.0); Mean Corpuscular Hgb Conc 31.1 g/dL (32.0-36.0); Mean Corpuscular Volume 92.8 fL (80.0-100.0); Mean Platelet Volume 11.5 fL (9.4-12.4); Monocytes % (auto) 12.1 %; Neutrophils # (auto) 3.26 K/uL (1.40-6.50); Neutrophils % (auto) 66.1 %; Platelet Count 199 K/uL (130-400); RDW Coefficient of Variation 16.2 % (11.5-14.5); RDW Standard Deviation 55.9 fL (36.4-46.3); Red Blood Count 3.05 M/uL (4.70-6.10); White Blood Count 4.94 K/ul (4.8-10.8)
[2023-12-12 07:23] LABS: Calcium 9.2 mg/dl (8.6-10.3); Creatinine Clr Calc Pharmacy 45.5 ml/min; Est GFR (African American) 42.8 ml/min; Est GFR (Non-African American) 36.9 ml/min; Magnesium 2.2 mg/dl (1.7-2.4)
[2023-12-12] MEDS: TORSEMIDE 20 MG TAB PO SCH (08:47)
--- NOTE | 2023-12-12 11:23 | Cardiology Progress Note ---
Date of Service December 12, 2023 Assessment & Plan (1) Acute on chronic right-sided heart failure: (2) USHA (acute kidney injury): (3) Chronic atrial fibrillation: (4) History of aortic valve replacement: (5) History of mitral valve replacement: (6) History of endocarditis: (7) Sleep apnea: Plan Improving signs and symptoms of acute on chronic decompensated right heart failure Elevated AVR velocities at 3.3 m/s likely consistent with size of valve present. Bioprosthetic mitral valve not well-visualized, with at least moderate prosthetic valve obstruction. Severe pulmonary hypertension, RVSP elevated at greater than 60. Chronic atrial fibrillation/flutter Obstructive sleep apnea, [facility] physiology Repeat echo on 12/10/23, revealed unchanged valve indices. Recommendations: Stable for discharge on the following medications: Eliquis 5 mg twice daily Aspirin 81 mg daily Potassium chloride 20 mill equivalents daily Magnesium oxide 400 mg daily Metoprolol succinate 75 mg twice daily Torsemide 20 mg daily Outpatient cardiology follow-up to be arranged. Admission and Anticipated Discharge Date Admission Date: December 05, 2023 Subjective Patient seen in cardiology follow-up. Denies subjective complaints. Lara catheter removed yesterday and he has been irritating spontaneously. Telemetry reveals rate controlled atrial fibrillation in the 70s to 80s. Review of Systems Review of Systems: All systems reviewed & are unremarkable except as noted in HPI & below Physical Exam Physical Exam: General: A&Ox3. NAD. HENT: Normocephalic. Atraumatic. Eyes: PER. Conjunctiva pink, sclera clear. Neck: JVD. Heart: Irregularly irregular 100 bpm. Grade II/ systolic murmur heard best at the LLSB. No diastolic murmur appreciated. No rub. Lungs: Diminished at the bases. Clear. No wheeze. No rales. No rhonchi. Abdomen: +BS. Less firm. Extremities: 1+ chronic indurated edema. No clubbing. No cyanosis, chronic stasis dermatitis Results & Data Vital Signs (Past 12 Hours) Vital Signs Temp Pulse Pulse Resp BP Pulse Ox O2 Del Method 12/12/23 10:46 36.4 C L 89 19 107/69 90 Room Air 12/12/23 08:50 Nasal Cannula 12/12/23 07:19 36.6 C 83 18 109/69 98 Nasal Cannula 12/12/23 05:46 83 12/12/23 03:46 37.0 C 87 18 105/67 96 CPAP O2 Flow Rate 12/12/23 10:46 12/12/23 08:50 2 12/12/23 07:19 2 12/12/23 05:46 12/12/23 03:46
--- NOTE | 2023-12-12 12:39 | Hospitalist Progress Note ---
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 Acute on chronic right-sided heart failure H/O Bioprosthetic mitral and aortic valve replacements H/O Endocarditis Elevated troponin secondary to above Hypoxia secondary to above Severe pulmonary hypertension --CXR:Cardiomegaly with mild congestive change. Small right pleural effusion with nonspecific right basilar densities. This favors atelectasis from the pleural effusion. --ECHO: Moderate concentric LVH, EF 65 to 70%. Flattened septum consistent with RV pressure overload. Right ventricle is moderate to severely dilated. Right ventricular systolic function is mild to moderately reduced. Left atrium is moderately dilated. Right atrium is severely dilated. Bioprosthetic arctic valve. Prosthetic valve leaflets appear mobile. Velocities are increased at 3. 3 m/s but likely consistent with signs of valve present. No aortic regurgitation is present. Bioprosthetic mitral valve. Prosthetic leaflets are not well-visualized. They appear thickened and possibly restricted in mobility. Doppler assessment reflective of moderate prosthetic valve obstruction. Significant mitral regurgitation is present. Moderate tricuspid regurgitation. Right ventricular systolic pressure is elevated > 60 mmHg. -- IV Lasix transition to torsemide 20 mg daily --Continue potassium, magnesium supplement -Continue metoprolol 75 mg twice a day --Appreciate cardiology input --Weaned off of supplemental oxygen at rest --2 step: Needs 4 L supplemental oxygen with activity -- Advised to monitor weight regularly --Plan to discharge home today --Needs follow-up with cardiology on discharge Patient not interested in rehab placement USHA Possible component of CKD, cr elevated > 1.4 since September Cr:1.8 today We will advised to get repeat blood work in 1 week as outpatient monitor renal function Avoid nephrotoxic agents as able Monitor renal function Chronic Atrial fibrillation Atenolol changed to metoprolol succinate 75 mg twice a day On Eliquis for anticoagulation Chronic ambulatory dysfunction H/O CVA due to septic emboli Pt is able to self transfer, but mostly stays in wheel chair PT/OT-Appreciate PT and OT input and recommended to continue therapy in the hospital Patient refused rehab placement Scrotal Edema Scrotal wound Chronic b/l venous stasis change consult wound care Secondary to fluid overload and was right-sided heart failure Volume status much improved VENUS CPAP HS DVT px: Eliquis CODE STATUS FULL CODE Disposition Home Admission and Anticipated Discharge Date Admission Date: December 05, 2023 Subjective Patient is seen and examined at bedside States feeling better today Denies any chest pain, dyspnea, nausea, vomiting, abdominal pain Volume status much improved Discussed with cardiology today Had to stop earlier today Plan to discharge home today Not interested in rehab placement Review of Systems Review of Systems: All systems reviewed & are unremarkable except as noted in Subjective Physical Exam Physical Exam: Physical Exam: Vitals signs as noted above General Appearance:Obese, no apparent distress Head: normocephalic, Atraumatic Eyes: normal inspection, EOMI Neck: supple, Trachea midline Respiratory/Chest: Normal breath sounds, CTA, No accessory muscle use Cardiovascular: Irregularly irregular, +murmur Abdomen/GI:Soft, Non tender, Bowel sounds present Extremities/Musculoskeletal:normal inspection, Chronic venous stasis changes, 1- 2 edema Neurologic/Psych:AAOX3, grossly no focal neurological deficits Skin: normal color, warm Results & Data Results & Data Vital Signs (Past 12 Hours) Vital Signs Temp Pulse Pulse Pulse Pulse Pulse Pulse 12/12/23 11:45 103 H 104 H 102 H 97 H 12/12/23 10:46 36.4 C L 89 12/12/23 08:50 12/12/23 07:19 36.6 C 83 12/12/23 05:46 83 12/12/23 03:46 37.0 C 87 Pulse Pulse Resp Resp Resp Resp Resp 12/12/23 11:45 100 H 90 23 21 19 17 12/12/23 10:46 19 12/12/23 08:50 12/12/23 07:19 18 12/12/23 05:46 12/12/23 03:46 18 Resp Resp BP Pulse Ox Pulse Ox Pulse Ox Pulse Ox 12/12/23 11:45 19 16 83 L 85 L 86 L 12/12/23 10:46 107/69 90 12/12/23 08:50 12/12/23 07:19 109/69 98 12/12/23 05:46 12/12/23 03:46 105/67 96 Pulse Ox Pulse Ox Pulse Ox O2 Del Method O2 Flow Rate O2 Flow Rate O2 Flow Rate 12/12/23 11:45 93 83 L 89 L 1 2 12/12/23 10:46 Room Air 12/12/23 08:50 Nasal Cannula 2 12/12/23 07:19 Nasal Cannula 2 12/12/23 05:46 12/12/23 03:46 CPAP O2 Flow Rate O2 Flow Rate 12/12/23 11:45 3 4 12/12/23 10:46 12/12/23 08:50 12/12/23 07:19 12/12/23 05:46 12/12/23 03:46 Laboratory Results Short CBC 12/12/23 Range/Units 05:33 WBC 4.94 (4.8-10.8) K/ul Hgb 8.8 L (14.0-18.0) g/dl Hct 28.3 L (42.0-52.0) % Plt Count 199 (130-400) K/uL BMP 12/12/23 05:33 Sodium 144 Potassium 4.0 Chloride 99 Carbon Dioxide 34 H BUN 64 H Creatinine 1.88 H Glucose 90 Calcium 9.2
--- NOTE | 2023-12-12 13:16 | Discharge Summary ---
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 He just recently establish with new primary care provider Yuriy Dempsey. he was seen in clinic today by Dr. Young. His report was reviewed. Postoperatively from his valve replacements he followed with [facility] cardiology and those reports described past intolerance to loop diuretics resulting in nausea and vomiting although patient has most recently been on Lasix for the last few days without these such symptoms. He also has been maintained on chlorthalidone 50 mg 3 times a week. He states over the last year he notes increased lower extremity swelling. He does not monitor his weights but states, "if you put 2 and 2 together I have likely gained weight." He complains of shortness of breath at rest as well as with exertion, orthopnea and has been required to sleep with his head elevated for the last 4 months. He also reports significant scrotal swelling, pain and redness. He has been using [id number] creams and ointments without much relief. In clinic patient today was noted to be significantly edematous with anasarca and was referred to the ED for admission and IV diuresis. In ED patient was remained hemodynamically stable and he is saturating without oxygen supplementation. Lab work notable for H&H 10.3 and 34.2, BUN 37, creatinine 1.76, troponin 42.4, BNP 1079 and chest x-ray that revealed cardiomegaly with mild vascular congestion and small right pleural effusion. His medications were reviewed and reconciled. He reports taking his medications daily. He currently is maintained on Eliquis once a day. He states when he took it twice a day this causes significant bleeding and therefore he will not take it twice a day. He has also been maintained on aspirin therapy. He does not smoke or drink alcohol. His is at bedside who also helps elicit history. At baseline patient is able to do self transfers but mostly remains in a wheelchair. He also reports mostly been incontinent of urine and states this has been due to his history of stroke. He last moved his bowels this morning. He reports he has severe osteoarthritis and balance dysfunction. Because of this he utilizes advil 6 tabs daily. Admission Exam Per Admitting Provider Constitutional: Chronically ill appearing M, WD/WN, vitals as above, NAD, sitting up in bed, pleasant, conversing easily Head: Normocephalic, Atraumatic Eyes: PERRL, conjunctivae normal, anicteric sclerae ENMT: external ear and nose normal, oropharynx normal Neck: trachea midline, no thyromegaly normal visual inspection Respiratory: normal respiratory effort, lungs clear to auscultation, no wheeze, rales, rhonchi. Normal insp/exp effort, no accessory muscle use Cardiovascular: IRR/IRR 1/6 LISETH LUSB, +2 bilateral edema through proximal lower ext, b/l scaly venous stasis changes Vessels: no JVD or carotid bruit Chest: normal inspection of chest Abdomen: Distended protuberant abdomen, firm NT, +BS Musculoskeletal: no cyanosis or clubbing, AROM x 4 Skin: no rashes, warm and dry normal turgor Neurologic: PERRL, EOMI, accommodation nl, no face palsy, no dysarthria CN's II-XI intact bilaterally and moves all extremities Psychiatric: A+Ox3, euthymic affect Lymphatic: no cervical or axillary lymphadenopathy : +erythematous scrotal area, swollen scrotum, +echavarria cath draining yellow urine Principal Diagnosis Acute on chronic right-sided heart failure Hypoxia Severe pulmonary hypertension Acute kidney injury Discharge Data Allergies Allergy/AdvReac Type Severity Reaction Status Date / Time amoxicillin Allergy Intermediate Rash Verified 12/05/23 13:07 cyclobenzaprine AdvReac Intermediate Rash Verified 12/05/23 13:07 Consultations 12/05/23 12:35 ED Decision to Admit Stat 12/05/23 13:14 Consult Cardiology Routine Procedures Performed Laboratory Results WBC 4.94 K/ul (4.8-10.8) 12/12/23 05:33 RBC 3.05 M/uL (4.70-6.10) L 12/12/23 05:33 Hgb 8.8 g/dl (14.0-18.0) L 12/12/23 05:33 Hct 28.3 % (42.0-52.0) L 12/12/23 05:33 MCV 92.8 fL (80.0-100.0) 12/12/23 05:33 MCH 28.9 pg (25.0-34.0) 12/12/23 05:33 MCHC 31.1 g/dL (32.0-36.0) L 12/12/23 05:33 RDW Std Deviation 55.9 fL (36.4-46.3) H 12/12/23 05:33 RDW Coeff of Arely 16.2 % (11.5-14.5) H 12/12/23 05:33 Plt Count 199 K/uL (130-400) 12/12/23 05:33 MPV 11.5 fL (9.4-12.4) 12/12/23 05:33 Immature Gran % (Auto) 0.4 % 12/12/23 05:33 Neut % (Auto) 66.1 % 12/12/23 05:33 Lymph % (Auto) 11.5 % 12/12/23 05:33 [place] % (Auto) 12.1 % 12/12/23 05:33 Eos % (Auto) 9.7 % 12/12/23 05:33 Baso % (Auto) 0.2 % 12/12/23 05:33 Neut # (Auto) 3.26 K/uL (1.40-6.50) 12/12/23 05:33 Lymph # (Auto) 0.57 K/uL (1.20-3.40) L 12/12/23 05:33 [place] # (Auto) 0.60 K/uL (0.11-0.59) H 12/12/23 05:33 Eos # (Auto) 0.48 K/uL (0.00-0.50) 12/12/23 05:33 Baso # (Auto) 0.01 K/uL (0.00-0.20) 12/12/23 05:33 Immature Gran # (Auto) 0.02 K/uL (0.01-0.20) 12/12/23 05:33 PT 12.6 Seconds (9.0-12.0) H 12/05/23 15:00 INR 1.2 (0.9-1.1) H 12/05/23 15:00 APTT 30 Seconds (21-31) 12/05/23 15:00 PTT Ratio 1.1 12/05/23 15:00 Sodium 144 mmol/L (136-145) 12/12/23 05:33 Potassium 4.0 mmol/L (3.5-5.1) 12/12/23 05:33 Chloride 99 mmol/L (98-107) 12/12/23 05:33 Carbon Dioxide 34 mmol/L (21-32) H 12/12/23 05:33 Anion Gap 11 (3-11) 12/12/23 05:33 BUN 64 mg/dl (6-23) H 12/12/23 05:33 Creatinine 1.88 mg/dl (0.6-1.4) H 12/12/23 05:33 Est Cr Clr Drug Dosing 45.5 ml/min 12/12/23 05:33 Est GFR ( Amer) 42.8 ml/min 12/12/23 05:33 Est GFR (Non-Af Amer) 36.9 ml/min 12/12/23 05:33 BUN/Creatinine Ratio 34.0 (10-20) H 12/12/23 05:33 Glucose 90 mg/dl (70-99(Fasting)) 12/12/23 05:33 Calcium 9.2 mg/dl (8.6-10.3) 12/12/23 05:33 Phosphorus 4.3 mg/dl (2.5-4.9) D 12/11/23 06:03 Magnesium 2.2 mg/dl (1.7-2.4) 12/12/23 05:33 Total Bilirubin 0.8 mg/dl (0.2-1.0) 12/06/23 05:58 AST 12 U/L (13-39) L 12/06/23 05:58 ALT 7 U/L (7-52) 12/06/23 05:58 Alkaline Phosphatase 75 U/L (34-104) 12/06/23 05:58 Troponin I High Sens 42.3 pg/ml (0-20) H 12/05/23 15:00 B-Natriuretic Peptide 1079 pg/ml (0-100) H 12/05/23 11:53 Total Protein 6.2 gm/dl (6.0-8.3) 12/06/23 05:58 Albumin 3.5 gm/dl (3.4-5.0) 12/06/23 05:58 Globulin 2.7 gm/dl (2.5-4.0) 12/06/23 05:58 Albumin/Globulin Ratio 1.3 (0.9-2) 12/06/23 05:58 Lipase 13 U/L (11-82) 12/05/23 11:53 Urine Color Yellow 12/05/23 12:15 Urine Appearance Clear (Clear) 12/05/23 12:15 Urine pH 5.5 (4.5-7.5) 12/05/23 12:15 Ur Specific [place] 1.008 (1.000-1.030) 12/05/23 12:15 Urine Protein Negative (Negative) 12/05/23 12:15 Urine Glucose (UA) Negative (Negative) 12/05/23 12:15 Urine Ketones Negative (Negative) 12/05/23 12:15 Urine Blood Trace (Negative) H 12/05/23 12:15 Urine Nitrite Negative (Negative) 12/05/23 12:15 Urine Bilirubin Negative (Negative) 12/05/23 12:15 Urine Urobilinogen Negative (Negative) 12/05/23 12:15 Ur Leukocyte Esterase Negative (Negative) 12/05/23 12:15 Urine WBC (Auto) 0-5 /hpf (0-5) 12/05/23 12:15 Urine RBC (Auto) 3-5 /hpf (0-2) H 12/05/23 12:15 U Hyaline Cast (Auto) 0-2 /lpf (0-2) 12/05/23 12:15 U Epithel Cells (Auto) 0-2 /hpf (0-2) 12/05/23 12:15 Urine Bacteria (Auto) None Seen (None Seen) 12/05/23 12:15 Impressions Chest X-Ray 12/05/23 11:33 XR chest 1V portable HISTORY: Chest pain, nonspecific COMPARISON: Chest 02/14/2020. FINDINGS: No pneumothorax. There are poststernotomy changes and cardiac valve prostheses. The heart is mildly enlarged. There are calcifications within the aortic knob. There is mild central pulmonary vascular congestion without overt edema. Small right pleural effusion and right basilar densities are noted. IMPRESSION: 1. Cardiomegaly with mild congestive change. 2. Small right pleural effusion with nonspecific right basilar densities. This favors atelectasis from the pleural effusion. ACT 112: Negative or not required by law. Electronically signed by: Jv Cobos M.D. 12/05/2023 12:36 PM Hospital Course (1) Acute on chronic right-sided heart failure: (2) History of mitral valve replacement: (3) History of aortic valve replacement: (4) Chronic atrial fibrillation: (5) Chronic venous stasis: (6) Scrotal erythema: (7) USHA (acute kidney injury): Plan This is a 63-year-old male who has significant past medical history of mitral valve endocarditis with both Staph aureus and Enterococcus facialis bacteremia with large mitral vegetation, leaflet perforation, perivalvular abscess along with subsequent aortic valve stenosis in which pt underwent bioprosthetic MVR and AVR in Feb, chronic atrial fibrillation, 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 Acute on chronic right-sided heart failure H/O Bioprosthetic mitral and aortic valve replacements H/O Endocarditis Elevated troponin secondary to above Hypoxia secondary to above Severe pulmonary hypertension --CXR:Cardiomegaly with mild congestive change. Small right pleural effusion with nonspecific right basilar densities. This favors atelectasis from the pleural effusion. --ECHO: Moderate concentric LVH, EF 65 to 70%. Flattened septum consistent with RV pressure overload. Right ventricle is moderate to severely dilated. Right ventricular systolic function is mild to moderately reduced. Left atrium is moderately dilated. Right atrium is severely dilated. Bioprosthetic arctic valve. Prosthetic valve leaflets appear mobile. Velocities are increased at 3.3 m/s but likely consistent with signs of valve present. No aortic regurgitation is present. Bioprosthetic mitral valve. Prosthetic leaflets are not well-visualized. They appear thickened and possibly restricted in mobility. Doppler assessment reflective of moderate prosthetic valve obstruction. Significant mitral regurgitation is present. Moderate tricuspid regurgitation. Right ventricular systolic pressure is elevated > 60 mmHg. -- IV Lasix transition to torsemide 20 mg daily --Continue potassium, magnesium supplement -Continue metoprolol 75 mg twice a day --Appreciate cardiology input --Weaned off of supplemental oxygen at rest --2 step: Needs 4 L supplemental oxygen with activity -- Advised to monitor weight regularly --Plan to discharge home today --Needs follow-up with cardiology on discharge Patient not interested in rehab placement USHA Possible component of CKD, cr elevated > 1.4 since September Cr:1.8 today We will advised to get repeat blood work in 1 week as outpatient monitor renal function Avoid nephrotoxic agents as able Monitor renal function Chronic Atrial fibrillation Atenolol changed to metoprolol succinate 75 mg twice a day On Eliquis for anticoagulation Chronic ambulatory dysfunction H/O CVA due to septic emboli Pt is able to self transfer, but mostly stays in wheel chair PT/OT-Appreciate PT and OT input and recommended to continue therapy in the hospital Patient refused rehab placement Scrotal Edema Scrotal wound Chronic b/l venous stasis change consult wound care Secondary to fluid overload and was right-sided heart failure Volume status much improved VENUS CPAP HS DVT px: Eliquis CODE STATUS FULL CODE Disposition Home Total Time Total Time Spent Total Time Spent (In Minutes): 56 minutes Discharge Plan Discharge Items Patient Disposition: Home - Self-Care Reason For Visit: ACUTE/CHRONIC CHF Discharge Diagnosis: Acute on chronic right-sided heart failure Hypoxia Severe pulmonary hypertension Acute kidney injury Activity: Per Instructions section Exercise/Sports: Gradually increase as tolerated Non-emergency contact: Primary Care Provider and [employer] Call non-emergency contact if: you have any medication questions, your symptoms worsen, your pain is concerning for you and you have a fever Follow-up/Referrals: Armin Young DO [[employer]elry [employer]] - (The Cardiology office will contact you for a follow up appointment.) Yuriy Dempsey MD [Primary Care Provider] - (Date & Time 12/18/2023 12:40 PM Provider Yuriy Dempsey MD [facility] ) Diet: Heart Healthy and Low Sodium (2gm) Fluids: 2000ml (8 cups) Addtl Attending Provider Instructions: Follow-up with your primary care physician on 12/18/2023 12:40 PM Follow-up with your water pumping station engineer Dr. Young in 2-3 weeks as advised -- Get blood work (basic metabolic panel) in 1 week to monitor your renal function and follow-up with the physician for further instructions --Use oxygen via nasal cannula 4 L with activity Seek immediate medical attention if your symptoms reoccur or worsen Please take all medications as instructed on discharge list below. Please call if you have any questions or problems. You can reach a [facility] hospitalist on duty at [facility] 24 hours a day by calling [phone] Call your Primary Care doctor if any of the following symptoms or problems start or get worse: * Shortness of breath or difficulty breathing * Wake up at night short of breath * Chest pain * Cough * Swelling of your hands, feet, or legs * More fatigued or tired with your normal activity * Palpitations - sudden fast heart beats WEIGHT * Weigh yourself every morning after using the bathroom. * Use the same scale. * Wear the same amount of clothing. * Write your weight down on a chart. * Call your Primary Care doctor if you gain more than 2-3 pounds in 1-2 days. MEDICATIONS * Use this discharge instruction sheet for medication instructions. * Take your medications at the time your doctor ordered. * Do not skip a dose of your medicines. * If you miss a dose of medicine, take it as soon as possible, but DO NOT DOUBLE A DOSE. * Read your medicine information when you get home. * Know all of the side effects of your medicine. If in doubt, ask your pharmacist * Call your Primary Care doctor's office if you have any side effects. * Be sure all of your doctors know what medicine and herbs you take (including cold, flu, and herbal medicine). Take the following with you to your follow-up doctor appointments: * Weight Chart * Medication List * List of questions Do not drink excessive alcohol, beer or wine. Pending Studies at Discharge: No Stand-Alone Forms: My [facility], Smoking Cessation Medications and DC Order Prescriptions: New metoprolol succinate 25 mg Tablet Extended Release 24 Hr 75 mg PO BID 30 Days Qty: 180 1RF torsemide 20 mg Tablet 20 mg PO QAM Qty: 30 1RF potassium chloride 20 mEq Tablet,Er Particles/Crystals 20 meq PO DAILY Qty: 30 1RF famotidine 20 mg Tablet 20 mg PO DAILY PRN (Reason: heartburn) Qty: 30 0RF magnesium oxide 400 mg (241.3 mg magnesium) Tablet 400 mg PO DAILY Qty: 30 1RF Continued coenzyme Q10 [CoQ-10] 100 mg Capsule 100 mg PO DAILY cholecalciferol (vitamin D3) [Vitamin D3] 125 mcg (5,000 unit) Tablet 125 mcg PO DAILY apixaban 5 mg Tablet 5 mg PO DAILY aspirin 81 mg Capsule 81 mg PO DAILY Held olmesartan 20 mg Tablet 20 mg PO DAILY Hold Instructions: Until further recommendations from your primary care physician/water pumping station engineer Discontinued furosemide 40 mg Tablet 40 mg PO DAILY chlorthalidone 25 mg Tablet 50 mg PO MOWEFR magnesium 100 mg Capsule 100 mg PO DAILY atenolol 50 mg Tablet 50 mg PO BID potassium chloride 20 mEq Tablet Extended Release 20 meq PO MOWEFR Discharge Orders: Discharge Order (Routine); Ordered 12/12/23 Ordered By: Oswaldo Guzman Admission Data Admit Date/Time: 12/05/23 12:29 Attending Provider: Oswaldo Guzman Admit Provider: Gerber Liang Primary Care Provider: Yuriy Dempsey Other Providers: Silvestre Alas; Gerber Liang
== END 2023-12-12 17:18 | disposition home or self-care (01) | DRG 292 ==
LOC: ED 11:25 → EDINP 12:29 → SUATTDRO 12:29 → EDINP 15:05 → 4W 17:27

== ENCOUNTER 2024-11-04 10:02 | Inpatient (IN) ==
--- NOTE | 2024-11-04 10:23 | Emergency Department Note ---
Impression & Plan CHF (congestive heart failure), Shortness of breath, Anemia, Elevated troponin ED Provider Note NAME: GUSTAVO DODD AGE: 64 SEX: M : 1960 ARRIVES VIA: Walk-In INFORMANT: Patient ED PROVIDER(S): Otto Orozco DO CHIEF COMPLAINT: Shortness of breath HPI: Patient is a 64-year-old male with a past medical history of USHA, chronic A-fib, ataxia, sepsis who presents to the ER for increased swelling and weight gain associated with shortness of breath which has been getting worse over the past several weeks. He notes he chronically wears 4 L nasal cannula. He takes his furosemide intermittently as he cannot get up and go to the bathroom. Denies any headache or change in vision. No chest pain but does have significant shortness of breath. No belly pain but admits to diffuse fullness. No dysuria, urgency, or frequency. No other exacerbating or remitting factors. ADDITIONAL HISTORY OBTAINED: Per HPI Chronic Medical/Social Conditions Affecting Care: Per HPI PAST MEDICAL HISTORY:See Below PAST SURGICAL HISTORY:See Below FAMILY HISTORY:See Below SOCIAL HISTORY:See Below HOME MEDICATIONS:See Below ALLERGIES:See Below VITALS:See Below PHYSICAL EXAMINATION: GENERAL: Sitting up in bed, alert, well appearing, obese, dyspneic with conversation, on chronic 4 L nasal cannula EYE EXAM: normal conjunctiva. OROPHARYNX: Dry mucous membranes NECK: supple, no nuchal rigidity, no adenopathy, non-tender LUNGS: Clear to auscultation. Normal chest wall mechanics HEART: no murmurs, S1 normal and S2 normal ABDOMEN: abdomen soft, non-tender, normo-active bowel sounds, no masses, no rebound or guarding. UPPER EXTREMITIES: upper extremities are grossly normal. LOWER EXTREMITIES: Pitting edema tracking bilaterally up in through the abdomen NEURO EXAM: Normal sensorium, cranial nerves II-XII grossly intact, normal speech, no gross weakness of arms, no gross weakness of legs. MEDICAL DECISION MAKING: Patient is a 64-year-old male with a past medical history of CHF who presents to the ER for shortness of breath. IV was established and blood work was obtained. Patient has been noncompliant with his diuretic. Labs showed no significant leukocytosis. Chronic anemia at 8.6. BMP with a creatinine 1.7. LFTs bilirubin was unremarkable. Troponin elevated in the 20s. BNP elevated at around 1500. Lipase was normal. Chest x-ray suggestive of failure. Patient was given IV Lasix. Updated bedside. Lara was placed. Discussed case with the hospitalist Dr. Frost for further evaluation management treatment. Consults/Care Managements Discussions: Per MDM Triage Nursing notes reviewed. Limited review of prior medical records performed Vital Signs: reviewed and remarkable for no significant abnormalities Differential diagnosis: Differential diagnoses includes but is not limited to pneumonia, bronchitis, COPD/Asthma exacerbation, pneumothorax, pulmonary embolism, congestive heart failure, acute coronary syndrome ER treatment provided: See below Diagnostics interpreted by me include EKG and cardiac monitoring as listed below: -Cardiac Monitoring: An order was placed for continuous cardiac monitoring. The monitor shows a rate of 95 with sinus rhythm. -ECG: Sinus rhythm rate of 98 Left axis Poor baseline in V1 QTc 467 -Laboratory studies:Interpreted by me as stated above in MDM and shown below. Imaging studies: Xrays: As interpreted by me: Portable AP upright 1 view of the chest shows pulmonary vascular congestion and commendation with right sided pleural effusion CTs show: none Procedures:none Critical Care: None Past Med/Surg History Problem List (Updated 11/04/24 @ 13:41 by Otto Orozco DO) Elevated troponin (Acute) Anemia (Acute) Shortness of breath (Acute) CHF (congestive heart failure) (Acute) Acute right-sided heart failure Sleep apnea History of endocarditis USHA (acute kidney injury) Scrotal erythema Chronic venous stasis Chronic atrial fibrillation Acute on chronic right-sided heart failure Prerenal azotemia Hypokalemia Hypokalemia Abnormal breath sounds Cerebellar ataxia Polyuria Bacteremia due to Enterococcus H/O heart valve replacement with bioprosthetic valve Gait instability RLS (restless legs syndrome) Excessive daytime sleepiness Screening PSA (prostate specific antigen) Nocturia Bacteremia due to Staphylococcus aureus (Acute 02/22/20) Cirrhosis of liver (Acute 02/28/20) Hematochezia (Acute 02/24/20) History of aortic valve replacement (Acute 03/07/20) History of mitral valve replacement (Acute 03/07/20) Hypervolemia (Acute 03/01/20) Injury of kidney (Acute 03/01/20) Intracranial septic embolism (Acute 02/22/20) Sleep apnea in adult Malnutrition DVT prophylaxis Heart failure Mitral regurgitation Severe aortic stenosis Endocarditis Acute hypokalemia (Acute) Alcohol use Generalized weakness Heart murmur Hypokalemia Basal cell carcinoma Screening PSA (prostate specific antigen) Central positional vertigo Osteoarthritis of knee Medical History Cerebellar ataxia (2020) Bilateral cataracts BPH (benign prostatic hyperplasia) Polyuria History of restless legs syndrome Gait instability since stroke, has a balance problem, uses a cane Hx of vertigo Chronic atrial fibrillation no caridoversion, follows with Hannah (12/12/23), takes eliquis Hx of basal cell carcinoma Hx of bacteremia (2019) USHA (acute kidney injury) (12/2023) recently hospitalized at [facility] "to drain fluid from my body" and was given IV lasix, which pt. 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, unsure of cause Cirrhosis of liver Dyspnea on exertion History of asthma Acute on chronic right-sided heart failure History of embolic stroke (2020) loss of balance, MRI showed new emboli in brain, currently has balance problems, no longer follows with neuro - takes eliquis Acute hypoxemic respiratory failure (03/01/20) hx Abnormal LFTs Benign essential hypertension Obstructive sleep apnea cpap with 2L oxygen - compliant Surgical History Hx of cataract extraction left Hx of basal cell carcinoma excision Hx of mitral valve replacement (02/2020) PSH- follows with Hannah at [facility] (12/12/23) Hx of aortic valve replacement (02/2020) PSH History of vasectomy Family History Father Heart disease Hypertension, Onset Age: 50 Kidney disease, Onset Age: 30 Kidney stones as young man Myocardial infarction Passed in 2006 with heart attack age 78 Brother Asthma Prostate cancer, Onset Age: 61 Treated Radiation and hormonal. Cancer younger brother, skin cancer Mother Cancer Skin cancer Brother Cancer skin cancer Denies family history of Ovarian cancer Diabetes Breast cancer Lung cancer Colorectal cancer Stroke Social History Smoking Status: Never smoker Tobacco Type: Cigarettes Second Hand Exposure: No; Do You Dip or Chew Tobacco: No; Hx Alcohol Use: Yes Alcohol type: beer Alcohol Intake Frequency: 2-4 x/Month Hx Substance Use: No Preferred Language: Palestinian Communication Ability: Effective Communication Ability Comment: [place] Hearing Ability: Hard of Hearing Manager [place] Required: No Beliefs That Will Affect Care: None marital status: Current Living Situation: Spouse current occupational status: employed 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 How many Children do You have: 0 How many Children do You have Comment: 1 step child Feels Safe at Home: Yes Childhood Exposure to Second-Hand Smoke: No Seatbelt Use: always Sunscreen Use: Yes Assistive Devices: Cane, CPAP, Glasses and Oxygen - at Night Allergies Allergies Allergy/AdvReac Type Severity Reaction Status Date / Time amoxicillin Allergy Intermediate Rash Verified 01/22/24 06:20 cyclobenzaprine AdvReac Intermediate Rash Verified 01/22/24 06:20 Home Meds Home Medications Medication Instructions Recorded Confirmed apixaban 5 mg tablet 5 mg PO QAM 12/05/23 11/04/24 aspirin 81 mg capsule 81 mg PO QAM 12/05/23 11/04/24 cholecalciferol (vitamin D3) 125 125 mcg PO DAILY 12/05/23 11/04/24 mcg (5,000 unit) tablet (Vitamin D3) coenzyme Q10 100 mg capsule 100 mg PO DAILY 12/05/23 11/04/24 (CoQ-10) metoprolol succinate 25 mg 100 mg PO BID 01/01/24 11/04/24 tablet,extended release 24 hr spironolactone 25 mg tablet 25 mg PO DAILY 11/04/24 11/04/24 Previous Rx's Medication Instructions Recorded magnesium oxide 400 mg (241.3 mg 400 mg PO DAILY #30 tabs 12/12/23 magnesium) tablet torsemide 20 mg tablet 20 mg PO QAM #30 tabs 12/12/23 Results & Data (ED) Vital Signs Vital Signs - 24 hr 11/04/24 10:06 11/04/24 10:39 11/04/24 11:22 Temperature 36.6 C Temperature Source Temporal Artery Scan Pulse Rate 99 H 98 H Pulse Rate [Apical] 98 H Respiratory Rate 24 22 Respiratory Effort / Characteristics Spontaneous Short of Breath Non-Labored Spontaneous Respiratory Depth Normal Blood Pressure 129/79 Blood Pressure [Left Arm] 136/87 Blood Pressure Mean 95 Blood Pressure Mean [Left Arm] 103 Blood Pressure Position [Left Arm] Lying Pulse Oximetry 93 96 Oxygen Delivery Method Nasal Cannula Nasal Cannula Oxygen Flow Rate 4 Sepsis Recent Fever Within 48 Hours No Sepsis New/Unexplained Change in Mental Status N/A Sepsis Action Taken by Nursing No Action Required 11/04/24 12:44 11/04/24 13:21 Temperature Temperature Source Pulse Rate 98 H Pulse Rate [Apical] 97 H Respiratory Rate 20 20 Respiratory Effort / Characteristics Non-Labored Spontaneous Respiratory Depth Normal Blood Pressure 155/89 H Blood Pressure [Left Arm] 141/82 H Blood Pressure Mean Blood Pressure Mean [Left Arm] 101 Blood Pressure Position [Left Arm] Pulse Oximetry 99 97 Oxygen Delivery Method Nasal Cannula Nasal Cannula Oxygen Flow Rate 4 4 Sepsis Recent Fever Within 48 Hours Sepsis New/Unexplained Change in Mental Status Sepsis Action Taken by Nursing Laboratory Data 11/04/24 10:28 11/04/24 10:28 Lab Results 11/04/24 11/04/24 Range/Units 10:28 12:31 WBC 5.71 (4.8-10.8) K/ul RBC 3.11 L (4.70-6.10) M/uL Hgb 8.6 L (14.0-18.0) g/dl Hct 30.1 L (42.0-52.0) % MCV 96.8 (80.0-100.0) fL MCH 27.7 (25.0-34.0) pg MCHC 28.6 L (32.0-36.0) g/dL RDW Std Deviation 56.9 H (36.4-46.3) fL RDW Coeff of Arely 15.9 H (11.5-14.5) % Plt Count 239 (130-400) K/uL MPV 10.9 (9.4-12.4) fL Immature Gran % (Auto) 0.4 % Neut % (Auto) 70.9 % Lymph % (Auto) 11.6 % [place] % (Auto) 11.6 % Eos % (Auto) 5.3 % Baso % (Auto) 0.2 % Neut # (Auto) 4.06 (1.40-6.50) K/uL Lymph # (Auto) 0.66 L (1.20-3.40) K/uL [place] # (Auto) 0.66 H (0.11-0.59) K/uL Eos # (Auto) 0.30 (0.00-0.50) K/uL Baso # (Auto) 0.01 (0.00-0.20) K/uL Immature Gran # (Auto) 0.02 (0.01-0.20) K/uL Sodium 143 (136-145) mmol/L Potassium 3.9 (3.5-5.1) mmol/L Chloride 101 (98-107) mmol/L Carbon Dioxide 34 H (21-32) mmol/L Anion Gap 8 (3-11) BUN 45 H (6-23) mg/dl Creatinine 1.79 H (0.6-1.4) mg/dl Est Cr Clr Drug Dosing Not Reportable eGFR 41.53 BUN/Creatinine Ratio 25.1 H (10-20) Glucose 94 (70-99(Fasting)) mg/dl Calcium 9.1 (8.6-10.3) mg/dl Total Bilirubin 0.8 (0.2-1.0) mg/dl AST 18 (13-39) U/L ALT 9 (7-52) U/L Alkaline Phosphatase 96 (34-104) U/L Troponin I High Sens 26.4 H 22.6 H (0-20) pg/ml B-Natriuretic Peptide 1763 H (0-100) pg/ml Total Protein 7.6 (6.0-8.3) gm/dl Albumin 3.9 (3.4-5.0) gm/dl Globulin 3.7 (2.5-4.0) gm/dl Albumin/Globulin Ratio 1.1 (0.9-2) Lipase 17 (11-82) U/L Administered Medications Discontinued Medications Furosemide (Furosemide 40 Mg/4 Ml Vial) 80 mg IV NOW STA Stop: 11/04/24 10:24 Last Admin: 11/04/24 11:09 Dose: 80 mg Documented By: DERIAN Lidocaine HCl (Lidocaine 2% Jelly 5 Ml Tube) Confirm Administered Dose 5 ml EXT .STK-MED ONE Stop: 11/04/24 10:48 Last Admin: 11/04/24 11:25 Dose: 5 ml Documented By: DERIAN Imaging Data Radiologist's Impression: Chest X-Ray 11/04/24 10:20 XR chest 1V portable CLINICAL HISTORY: Chest pain, nonspecific COMPARISON STUDY: 12/05/2023 FINDINGS: Stable cardiac valve repair. Stable cardiomegaly with pulmonary vascular congestion. There is a small to moderate right pleural effusion and associated consolidation at the right base, increased. No pneumothorax. IMPRESSION: CHF with increased right pleural effusion and right lower lung consolidation. ACT 112: Negative or not required by law. Electronically signed by: Wade Stuart M.D. 11/04/2024 10:42 AM Discharge Plan Visit Data Chief Complaint: Swelling/Edema to Extremity Stated Complaint: WATER WEIGHT GAIN ED Provider: Otto Orozco Discharge Problem: CHF (congestive heart failure), Shortness of breath, Anemia, Elevated troponin Patient Disposition: Admitted As Inpatient Condition: Fair Discharge Instructions Interventions: ED Discharge Assessment Last Done: 11/04/24 13:21 Forms Stand Alone Forms: My [employer] Prescriptions Prescriptions: No Action coenzyme Q10 [CoQ-10] 100 mg Capsule 100 mg PO DAILY cholecalciferol (vitamin D3) [Vitamin D3] 125 mcg (5,000 unit) Tablet 125 mcg PO DAILY apixaban 5 mg Tablet 5 mg PO QAM Rx Instructions: per pt he only takes one tab daily aspirin 81 mg Capsule 81 mg PO QAM torsemide 20 mg Tablet 20 mg PO QAM Qty: 30 1RF magnesium oxide 400 mg (241.3 mg magnesium) Tablet 400 mg PO DAILY Qty: 30 1RF metoprolol succinate 25 mg tablet extended release 24 hr 100 mg PO BID spironolactone 25 mg tablet 25 mg PO DAILY Referrals Referrals: Yuriy Dempsey MD [Primary Care Provider] - Discharge Problem: CHF (congestive heart failure) Qualifiers: Heart failure type: unspecified Heart failure chronicity: acute Qualified Code(s): I50.9 - Heart failure, unspecified Anemia Qualifiers: Anemia type: unspecified type Qualified Code(s): D64.9 - Anemia, unspecified
--- NOTE | 2024-11-04 10:44 | XRay Report ---
XR chest 1V portable CLINICAL HISTORY: Chest pain, nonspecific COMPARISON STUDY: 12/05/2023 FINDINGS: Stable cardiac valve repair. Stable cardiomegaly with pulmonary vascular congestion. There is a small to moderate right pleural effusion and associated consolidation at the right base, increas ed. No pneumothorax. IMPRESSION: CHF with increased right pleural effusion and right lower lung consolidation. ACT 112: Negative or not required by law. Electronically signed by: Wade Stuart M.D. 11/04/2024 10:42 AM
[2024-11-04 10:45] LABS: Hematocrit (blood only) 30.1 % (42.0-52.0); Hemoglobin 8.6 g/dl (14.0-18.0); Immature Granulocytes # (auto) 0.02 K/uL (0.01-0.20); Immature Granulocytes % (auto) 0.4 %; Mean Corpuscular Hemoglobin 27.7 pg (25.0-34.0); Mean Corpuscular Volume 96.8 fL (80.0-100.0); Platelet Count 239 K/uL (130-400); RDW Standard Deviation 56.9 fL (36.4-46.3); Red Blood Count 3.11 M/uL (4.70-6.10); White Blood Count 5.71 K/ul (4.8-10.8)
[2024-11-04 11:06] LABS: Alanine Aminotransferase 9 U/L (7-52); Albumin Globulin Ratio 1.1 (0.9-2); Alkaline Phosphatase 96 U/L (34-104); Anion Gap 8 (3-11); Bilirubin,Total 0.8 mg/dl (0.2-1.0); Blood Urea Nitrogen 45 mg/dl (6-23); Calcium 9.1 mg/dl (8.6-10.3); Carbon Dioxide 34 mmol/L (21-32); Chloride 101 mmol/L (98-107); Globulin 3.7 gm/dl (2.5-4.0); Glucose 94 mg/dl (70-99(Fasting)); Lipase 17 U/L (11-82); Potassium 3.9 mmol/L (3.5-5.1); Sodium 143 mmol/L (136-145); Total Protein 7.6 gm/dl (6.0-8.3)
[2024-11-04] MEDS: FUROSEMIDE 40 MG/4 ML VIAL IV STA (11:09)
[2024-11-04] MEDS: LIDOCAINE 2% JELLY 5 ML TUBE EXT ONE (11:25)
--- NOTE | 2024-11-04 12:06 | History & Physical Report ---
Date of Service November 04, 2024 Assessment & Plan (1) Acute on chronic right-sided heart failure: Plan: Presented with increasing shortness of breath and increasing swelling of the legs and abdomen for the last few weeks Has been noncompliant with diuretics at home Chest x-ray evidence of acute CHF with elevated BNP Received furosemide 80 mg IV in the emergency room and will be continued Continue spironolactone Cardiology evaluation and monitor PRP and electrolytes Right pleural effusion Doubt any pneumonia associated with it If the effusion is not any better with diuretics may need to involve pulmonary for thoracentesis (2) Chronic atrial fibrillation: Plan: History of chronic atrial fibrillation Has been on beta-lisa and the rate seems to be reasonably controlled Beta-lisa doses may need to be changed due to increased heart rate Minimally increased troponin Troponin was 26.4 and will repeat another set Doubt any ACS (3) H/O heart valve replacement with bioprosthetic valve: Plan: History of endocarditis and also bioprosthetic valve replacement of aortic and mitral valve Denies any chest pain and/or palpitation Will get an echo to document cardiac function (4) History of endocarditis: (5) Chronic venous stasis: Plan: Both the legs are bandaged Will get wound care evaluation while in the hospital (6) Sleep apnea: (7) Cirrhosis of liver: Plan: Will get ultrasound of the abdomen to find out if any ascites (8) Intracranial septic embolism: (9) Generalized weakness: Plan: Complaining of decreased mobility due to weakness and pain in the knee joint Does not have any acute arthritis involving any of the joint Will get PT OT evaluation Plan DVT prophylaxis Has been on Eliquis CODE STATUS DNR/DNI Discussed with the and the patient in detail History of Present Illness Chief Complaint: Increasing swelling of legs and abdomen and shortness of breath for the last few weeks Primary Care Provider: Yuriy Dempsey MD He is a 64-year-old obese male with significant past medical history of aortic and mitral valve replacement with history of endocarditis, chronic atrial fibrillation, history of CVA due to septic emboli, ambulatory dysfunction, hypertension chronic right heart failure and also history of sleep apnea and history of cirrhosis apparently has been complaining of increasing swelling of the legs and abdomen for the last few weeks. He has been taking his torsemide the way he is supposed to be and also complaining of increasing shortness of breath at rest and with minimal ambulation for the last few weeks too. He denies any chest pain or any palpitation. No nausea or vomiting and no fever and no chills. He has chronic venous stasis on both sides. He was noted to have CHF with increase BNP in the emergency room and received 80 mg of IV Lasix and was admitted to telemetry unit for continuation of care. Allergies Allergy/AdvReac Type Severity Reaction Status Date / Time amoxicillin Allergy Intermediate Rash Verified 01/22/24 06:20 cyclobenzaprine AdvReac Intermediate Rash Verified 01/22/24 06:20 Home Medications Medication Instructions Recorded Confirmed Type apixaban 5 mg tablet 5 mg PO QAM 12/05/23 11/04/24 History aspirin 81 mg capsule 81 mg PO QAM 12/05/23 11/04/24 History cholecalciferol (vitamin D3) 125 125 mcg PO DAILY 12/05/23 11/04/24 History mcg (5,000 unit) tablet (Vitamin D3) coenzyme Q10 100 mg capsule 100 mg PO DAILY 12/05/23 11/04/24 History (CoQ-10) magnesium oxide 400 mg (241.3 mg 400 mg PO DAILY #30 tabs 12/12/23 11/04/24 Rx magnesium) tablet torsemide 20 mg tablet 20 mg PO QAM #30 tabs 12/12/23 11/04/24 Rx metoprolol succinate 25 mg 100 mg PO BID 01/01/24 11/04/24 History tablet,extended release 24 hr spironolactone 25 mg tablet 25 mg PO DAILY 11/04/24 11/04/24 History Past Med/Surg History Problem List (Updated 02/16/24 @ 00:09 by Yared Soria) Acute right-sided heart failure Sleep apnea History of endocarditis USHA (acute kidney injury) Scrotal erythema Chronic venous stasis Chronic atrial fibrillation Acute on chronic right-sided heart failure Prerenal azotemia Hypokalemia Hypokalemia Abnormal breath sounds Cerebellar ataxia Polyuria Bacteremia due to Enterococcus H/O heart valve replacement with bioprosthetic valve Gait instability RLS (restless legs syndrome) Excessive daytime sleepiness Screening PSA (prostate specific antigen) Nocturia Bacteremia due to Staphylococcus aureus (Acute 02/22/20) Cirrhosis of liver (Acute 02/28/20) Hematochezia (Acute 02/24/20) History of aortic valve replacement (Acute 03/07/20) History of mitral valve replacement (Acute 03/07/20) Hypervolemia (Acute 03/01/20) Injury of kidney (Acute 03/01/20) Intracranial septic embolism (Acute 02/22/20) Sleep apnea in adult Malnutrition DVT prophylaxis Heart failure Mitral regurgitation Severe aortic stenosis Endocarditis Acute hypokalemia (Acute) Alcohol use Generalized weakness Heart murmur Hypokalemia Basal cell carcinoma Screening PSA (prostate specific antigen) Central positional vertigo Osteoarthritis of knee Medical History Cerebellar ataxia (2020) Bilateral cataracts BPH (benign prostatic hyperplasia) Polyuria History of restless legs syndrome Gait instability since stroke, has a balance problem, uses a cane Hx of vertigo Chronic atrial fibrillation no caridoversion, follows with Hannah (12/12/23), takes eliquis Hx of basal cell carcinoma Hx of bacteremia (2019) USHA (acute kidney injury) (12/2023) recently hospitalized at [facility] "to drain fluid from my body" and was given IV lasix, which pt. 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, unsure of cause Cirrhosis of liver Dyspnea on exertion History of asthma Acute on chronic right-sided heart failure History of embolic stroke (2020) loss of balance, MRI showed new emboli in brain, currently has balance problems, no longer follows with neuro - takes eliquis Acute hypoxemic respiratory failure (03/01/20) hx Abnormal LFTs Benign essential hypertension Obstructive sleep apnea cpap with 2L oxygen - compliant Surgical History Hx of cataract extraction left Hx of basal cell carcinoma excision Hx of mitral valve replacement (02/2020) PSH- follows with Hannah at [facility] (12/12/23) Hx of aortic valve replacement (02/2020) PS History of vasectomy Family History Father Heart disease Hypertension, Onset Age: 50 Kidney disease, Onset Age: 30 Kidney stones as young man Myocardial infarction Passed in 2006 with heart attack age 77 Brother Asthma Prostate cancer, Onset Age: 61 Treated Radiation and hormonal. Cancer younger brother, skin cancer Mother Cancer Skin cancer Brother Cancer skin cancer Denies family history of Ovarian cancer Diabetes Breast cancer Lung cancer Colorectal cancer Stroke Social History Smoking Status: Never smoker Tobacco Type: Cigarettes Second Hand Exposure: No; Do You Dip or Chew Tobacco: No; Hx Alcohol Use: Yes Alcohol type: beer Alcohol Intake Frequency: 2-4 x/Month Hx Substance Use: No Preferred Language: Latvian Communication Ability: Effective Communication Ability Comment: [place] Hearing Ability: Hard of Hearing Bee Farmer Required: No Beliefs That Will Affect Care: None marital status: Current Living Situation: Spouse current occupational status: employed 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 How many Children do You have: 0 How many Children do You have Comment: 1 step child Feels Safe at Home: Yes Childhood Exposure to Second-Hand Smoke: No Seatbelt Use: always Sunscreen Use: Yes Assistive Devices: Cane, CPAP, Glasses and Oxygen - at Night Review of Systems Review of Systems: All systems reviewed and are unremarkable except as noted below Physical Exam Physical Exam: Lying in bed with minimal distress due to shortness of breath Constitutional: well developed, well nourished, + ill appearing and + obese Eyes: PERRL, conjunctivae normal, anicteric sclerae ENMT: external ear and nose normal, oropharynx normal Neck: trachea midline, no thyromegaly Respiratory: + respiratory distress ( mild to moderat e respiratory distress at rest) Cardiovascular: Rate/Rhythm: regular rate and regular rhythm; not tachycardic Heart Sounds: normal S1, normal S2 and + murmur Extremities: + edema ( 1-2+ edema bilaterally with chronic skin changes) Gastrointestinal (Abdomen): Inspection/Auscultation: + abdomen distended and normal bowel sounds Percussion/Palpation: abdomen soft; abdomen nontender Musculoskeletal: Osteoarthritis involving multiple joints but no acute arthritis Skin: Bilateral venous stasis involving the legs Neurologic: normal touch/pain/proprioception and moves all extremities; no focal motor deficits generally weak Lymphatic: no cervical or axillary lymphadenopathy Results & Data Results & Data Vital Signs (Past 12 Hours) Vital Signs Temp Pulse Pulse Resp BP BP Pulse Ox 11/04/24 11:22 98 H 22 136/87 96 11/04/24 10:39 98 H 11/04/24 10:06 36.6 C 99 H 24 129/79 93 O2 Del Method O2 Flow Rate 11/04/24 11:22 Nasal Cannula 4 11/04/24 10:39 11/04/24 10:06 Nasal Cannula Laboratory Results Short CBC 11/04/24 Range/Units 10:28 WBC 5.71 (4.8-10.8) K/ul Hgb 8.6 L (14.0-18.0) g/dl Hct 30.1 L (42.0-52.0) % Plt Count 239 (130-400) K/uL BMP 11/04/24 10:28 Sodium 143 Potassium 3.9 Chloride 101 Carbon Dioxide 34 H BUN 45 H Creatinine 1.79 H Glucose 94 Calcium 9.1 Liver Function 11/04/24 Range/Units 10:28 Total Bilirubin 0.8 (0.2-1.0) mg/dl AST 18 (13-39) U/L ALT 9 (7-52) U/L Alkaline Phosphatase 96 (34-104) U/L Albumin 3.9 (3.4-5.0) gm/dl
--- NOTE | 2024-11-04 14:19 | Cardiology Consultation ---
Date of Consultation November 04, 2024 Assessment & Plan (1) Right-sided congestive heart failure: (2) Pickwickian syndrome: (3) S/P AVR (aortic valve replacement): (4) S/P MVR (mitral valve replacement): (5) Atrial fibrillation: (6) Elevated troponin: Plan Acute on chronic decompensated right heart failure, underlying severe right ventricular dysfunction, severe pulmonary hypertension, chronic atrial fibrillation, history of endocarditis and severe aortic valve stenosis status post mitral and aortic valve replacements. Recommendations: 1. IV diuresis, evaluating response to current regimen, likely requiring continuous IV infusion +/- ongoing pulse dosing. 2. Continue spironolactone 3. Lara catheter in place 4. Strict I's and O's 5. Restrict sodium to less than 1,500 mg/day 6. Restrict fluids to less than 2,000 mL/day 7. Continue supplemental oxygen and CPAP therapy at night and when napping during the day. 8. Continue current dose of metoprolol succinate, rate control strategy for the permanent atrial fibrillation. Heart rates acceptable at present. 9. 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 Maintain telemetry 11. Daily labs 12. Discontinue and avoid NSAID's 13. Compliance with medications/diuretics addressed. Supervising Physician Co-Signing Physician Notes Patient was seen and personally examined. Full assessment and plan as outlined by advanced provider as above. Care and management discussed and personally endorsed. 64-year-old male with acute on chronic decompensated right heart failure multifactorial. Patient with at least 30 pound weight gain of fluid predomin antly manifesting in abdominal girth and lower extremity edema moderate-sized pleural effusion present Lara catheter in place and patient receiving IV Bumex. May require IV Lasix infusion Continue oxygen supplementation and CPAP at night Echocardiogram with preserved LV systolic function, normally functioning bioprosthesis in the aortic and mitral valve position. Severe right ventricular enlargement and at least moderate elevation right heart pressures History of Present Illness Reason for Consultation: CHF Requesting Physician: [facility], Dr. Gael Frost MD Attending Physician: [facility], Dr. Gael Frost MD History of Present Illness Patient is a 64-year-old male who presented to the [facility] ER on November 04, 2024 with "lots of fluid gain." Patient describes "getting behind on the medications," unable to take the prescribed diuretic regimen (torsemide 100 AM and 50 in the afternoon, spironolactone 25 mg/day) due to frequent urination, inability to stand to urinate secondary to bilateral knee pain. Describes worsening shortness of breath, orthopnea, abdominal bloating, penile/scrotal edema, and to lesser extent lower extremity peripheral edema. Patient unable to be weighed, with reported significant weight gain. Patient compliant with supplemental oxygen and CPAP therapies. Notes Advil decreases effectiveness of diuretic therapy. High-sensitivity troponin minimally elevated 26.4 -> 22.6 pg/mL. EKG without acute change. Patient chest pain-free. No palpitations, fevers, chills, nausea, vomiting, melena or hematochezia. + Intermittent epistaxis. Chest x-ray on presentation revealed congestive heart failure with moderate size right pleural effusion, possible right lower lung consolidation. Patient received 80 mg IV Lasix with brisk diuresis. Lara catheter placed. Telemetry with rate controlled chronic atrial fibrillation Patient last evaluated in the office by Dr. Young in December 2023. Four appointments canceled since, one by the provider and three by the patient. Past Medical and Surgical History: History of mitral valve endocarditis, MSSA bacteremia February 2020 Preoperative severe aortic valve stenosis February 22, 2022 Coronary Angiography ([facility]): Right dominant coronary anatomy, without obstructive coronary artery disease. 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 Father with an IN of 78. 3 brothers, oldest with prostate cancer. Social History: Never smoker. No smokeless tobacco. No alcohol. No illegal drug use. to [employer]. 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 Allergies Allergy/AdvReac Type Severity Reaction Status Date / Time amoxicillin Allergy Intermediate Rash Verified 01/22/24 06:20 cyclobenzaprine AdvReac Intermediate Rash Verified 01/22/24 06:20 Home Medications Medication Instructions Recorded Confirmed Type apixaban 5 mg tablet 5 mg PO QAM 12/05/23 11/04/24 History aspirin 81 mg capsule 81 mg PO QAM 12/05/23 11/04/24 History cholecalciferol (vitamin D3) 125 125 mcg PO DAILY 12/05/23 11/04/24 History mcg (5,000 unit) tablet (Vitamin D3) coenzyme Q10 100 mg capsule 100 mg PO DAILY 12/05/23 11/04/24 History (CoQ-10) magnesium oxide 400 mg (241.3 mg 400 mg PO DAILY #30 tabs 12/12/23 11/04/24 Rx magnesium) tablet torsemide 20 mg tablet 20 mg PO QAM #30 tabs 12/12/23 11/04/24 Rx metoprolol succinate 25 mg 100 mg PO BID 01/01/24 11/04/24 History tablet,extended release 24 hr spironolactone 25 mg tablet 25 mg PO DAILY 11/04/24 11/04/24 History Patient History Medical History Cerebellar ataxia (2020) Bilateral cataracts BPH (benign prostatic hyperplasia) Polyuria History of restless legs syndrome Gait instability since stroke, has a balance problem, uses a cane Hx of vertigo Chronic atrial fibrillation no caridoversion, follows with Hannah (12/12/23), takes eliquis Hx of basal cell carcinoma Hx of bacteremia (2019) USHA (acute kidney injury) (12/2023) recently hospitalized at [facility] "to drain fluid from my body" and was given IV lasix, which pt. 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, unsure of cause Cirrhosis of liver Dyspnea on exertion History of asthma Acute on chronic right-sided heart failure History of embolic stroke (2020) loss of balance, MRI showed new emboli in brain, currently has balance problems, no longer follows with neuro - takes eliquis Acute hypoxemic respiratory failure (03/01/20) hx Abnormal LFTs Benign essential hypertension Obstructive sleep apnea cpap with 2L oxygen - compliant Surgical History Hx of cataract extraction left Hx of basal cell carcinoma excision Hx of mitral valve replacement (02/2020) PSH- follows with Hannah at [facility] (12/12/23) Hx of aortic valve replacement (02/2020) PSH History of vasectomy Family History Father Heart disease Hypertension, Onset Age: 50 Kidney disease, Onset Age: 30 Kidney stones as young man Myocardial infarction Passed in 2006 with heart attack age 78 Brother Asthma Prostate cancer, Onset Age: 61 Treated Radiation and hormonal. Cancer younger brother, skin cancer Mother Cancer Skin cancer Brother Cancer skin cancer Denies family history of Ovarian cancer Diabetes Breast cancer Lung cancer Colorectal cancer Stroke Social History Smoking Status: Never smoker Tobacco Type: Cigarettes Second Hand Exposure: No; Do You Dip or Chew Tobacco: No; Hx Alcohol Use: Yes Alcohol type: beer Alcohol Intake Frequency: 2-4 x/Month Hx Substance Use: No Preferred Language: Greek Communication Ability: Effective Communication Ability Comment: [facility] Hearing Ability: Hard of Hearing Clinical Medical Assistant Required: No Beliefs That Will Affect Care: None marital status: Current Living Situation: Spouse current occupational status: employed 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 How many Children do You have: 0 How many Children do You have Comment: 1 step child Other Information That Helps Us Care for You: No Feels Safe at Home: Yes Safety Concerns: Feels Safe At This Time Childhood Exposure to Second-Hand Smoke: No Seatbelt Use: always Sunscreen Use: Yes Assistive Devices: Cane, CPAP, Glasses, Oxygen - at Night, Walker and Wheelchair Review of Systems Review of Systems: Complete Review of Systems is as stated above, negative, or noncontributory Physical Exam Physical Exam: General: Comfortable. Cooperative. No acute distress. Somewhat hard of hearing. HENT: Normocephalic. Atraumatic. Eyes: PER. Conjunctiva pink, sclera clear. Neck: JVD. HJR. Heart: Irregularly irregular at 90 bpm. Grade II/ systolic murmur heard best at the LLSB. No diastolic murmur appreciated. No rub. Lungs: Diminished. Decreased. Right anterior rales. No wheeze. Abdomen: +BS. Distended. Firm. Nontender. No overt organomegaly. Extremities: 2+ chronic indurated edema with thickened dry scaling, mild erythema. Pulses: Posterior tibial=0/4. Results & Data Vital Signs (Past 12 Hours) Vital Signs Temp Pulse Pulse Resp BP BP Pulse Ox 11/04/24 13:21 98 H 20 155/89 H 97 11/04/24 12:44 97 H 20 141/82 H 99 11/04/24 11:22 98 H 22 136/87 96 11/04/24 10:39 98 H 11/04/24 10:06 36.6 C 99 H 24 129/79 93 O2 Del Method O2 Flow Rate 11/04/24 13:21 Nasal Cannula 4 11/04/24 12:44 Nasal Cannula 4 11/04/24 11:22 Nasal Cannula 4 11/04/24 10:39 11/04/24 10:06 Nasal Cannula Laboratory Results Cardiac Enzymes 11/04/24 11/04/24 Range/Units 10:28 12:31 AST 18 (13-39) U/L Troponin I High Sens 26.4 H 22.6 H (0-20) pg/ml B-Natriuretic Peptide 1763 H (0-100) pg/ml Coagulation 11/04/24 Range/Units 10:28 B-Natriuretic Peptide 1763 H (0-100) pg/ml CBC 11/04/24 Range/Units 10:28 WBC 5.71 (4.8-10.8) K/ul RBC 3.11 L (4.70-6.10) M/uL Hgb 8.6 L (14.0-18.0) g/dl Hct 30.1 L (42.0-52.0) % Plt Count 239 (130-400) K/uL Neut # (Auto) 4.06 (1.40-6.50) K/uL Lymph # (Auto) 0.66 L (1.20-3.40) K/uL Hartley # (Auto) 0.66 H (0.11-0.59) K/uL Eos # (Auto) 0.30 (0.00-0.50) K/uL Baso # (Auto) 0.01 (0.00-0.20) K/uL Comprehensive Metabolic Panel 11/04/24 Range/Units 10:28 Sodium 143 (136-145) mmol/L Potassium 3.9 (3.5-5.1) mmol/L Chloride 101 (98-107) mmol/L Carbon Dioxide 34 H (21-32) mmol/L BUN 45 H (6-23) mg/dl Creatinine 1.79 H (0.6-1.4) mg/dl Glucose 94 (70-99(Fasting)) mg/dl Calcium 9.1 (8.6-10.3) mg/dl AST 18 (13-39) U/L ALT 9 (7-52) U/L Alkaline Phosphatase 96 (34-104) U/L Total Protein 7.6 (6.0-8.3) gm/dl Albumin 3.9 (3.4-5.0) gm/dl Intake and Output 11/03/24 11/04/24 11/04/24 22:59 06:59 14:59 Output Total 1000 / 1000 Balance -1000 / -1000 Output: Urine Amount (Catheter) 1000 / 1000 Coude 1000 / 1000 Other: Weight 116.5 kg Weight Measurement Method Built in [facility] Patient Weight 11/05/24 06:59 Weight 116.5 kg PG Care Time/CCT Total # of Minutes Spent Total Time Spent with Patient: Total time spent is greater than 50% in coordination of care (as documented) at patient's floor/unit and/or counseling patient: Coding Level of Care Code 14174 INT INP/OBS CARE 3/75MIN Diagnoses Right-sided congestive heart failure I50.810 Pickwickian syndrome E66.2 S/P AVR (aortic valve replacement) Z95.2 S/P MVR (mitral valve replacement) Z95.2 Atrial fibrillation I48.91 Elevated troponin R79.89
--- NOTE | 2024-11-04 16:24 | Ultrasound Report ---
Clinical history: Check for ascites Technique: A sonographic survey was performed of all 4 quadrants of the abdomen Findings: A moderate amount of ascites is seen in all 4 quadrants. No other definite abnormality is seen on this limited study Impression: Moderate amount of ascites Electronically signed by Ayo Yee 11-04-2024 4:24 PM
[2024-11-04] MEDS: METOPROLOL SUCC 50MG EXT REL TAB PO SCH (20:05)
[2024-11-05 06:17] LABS: Hematocrit (blood only) 26.9 % (42.0-52.0); Hemoglobin 7.7 g/dl (14.0-18.0); Immature Granulocytes # (auto) 0.01 K/uL (0.01-0.20); Immature Granulocytes % (auto) 0.2 %; Mean Corpuscular Hemoglobin 27.8 pg (25.0-34.0); Mean Corpuscular Volume 97.1 fL (80.0-100.0); Platelet Count 219 K/uL (130-400); RDW Standard Deviation 56.8 fL (36.4-46.3); Red Blood Count 2.77 M/uL (4.70-6.10); White Blood Count 5.38 K/ul (4.8-10.8)
[2024-11-05 06:35] LABS: Anion Gap 7.0 (3-11); Blood Urea Nitrogen 43.0 mg/dl (6-23); Calcium 8.8 mg/dl (8.6-10.3); Carbon Dioxide 36.0 mmol/L (21-32); Chloride 102.0 mmol/L (98-107); Creatinine Clr Calc Pharmacy 57.8 ml/min; Glucose 88.0 mg/dl (70-99(Fasting)); Magnesium 2.2 mg/dl (1.7-2.4); Potassium 3.9 mmol/L (3.5-5.1); Sodium 145.0 mmol/L (136-145)
[2024-11-05 06:43] LABS: Ovalocytes 1+; Polychromasia 1+
[2024-11-05] MEDS ORDERED: NON-FORMULARY MEDICATION (Coenzyme Q10 [Coq-10] 100 mg Capsule) PO SCH (09:00)
[2024-11-05] MEDS ORDERED: FUROSEMIDE 40 MG/4 ML VIAL IV SCH (09:00)
[2024-11-05] MEDS: FUROSEMIDE 40 MG/4 ML VIAL IV SCH (09:04)
[2024-11-05] MEDS: SPIRONOLACTONE 25 MG TAB PO SCH ×2 (09:04→17:08)
[2024-11-05] MEDS: ASPIRIN 81 MG ECTAB PO SCH (09:05)
[2024-11-05] MEDS: CHOLECALCIFEROL 125 MCG (5,000 UNITS) TAB PO SCH (09:05)
[2024-11-05] MEDS: MAGNESIUM OXIDE 400 MG TAB PO SCH (09:05)
[2024-11-05] MEDS: APIXABAN 5 MG TABLET PO SCH (09:05)
--- NOTE | 2024-11-05 10:29 | Cardiology Progress Note ---
Date of Service November 05, 2024 Assessment & Plan (1) Right-sided congestive heart failure: (2) Pickwickian syndrome: (3) S/P AVR (aortic valve replacement): (4) S/P MVR (mitral valve replacement): (5) Atrial fibrillation: (6) Elevated troponin: Plan Acute decompensated right heart failure, underlying severe right ventricular dysfunction, pulmonary hypertension, chronic atrial fibrillation/flutter, history of endocarditis and severe aortic valve stenosis status post mitral and aortic valve replacements. Recommendations: 1. Continue IV diuresis, increasing furosemide to 80 mg twice a day 2. Continue spironolactone 3. Lara catheter in place 4. Strict I's and O's 5. Restrict sodium to less than 1,500 mg/day 6. Restrict fluids to less than 2,000 mL/day 7. Continue supplemental oxygen and CPAP therapy at night and when napping during the day. 8. Continue current dose of metoprolol succinate, rate control strategy for the permanent atrial fibrillation. Heart rates acceptable at present. 9. Continue anticoagulation detention 10. Maintain telemetry 11. Daily labs 12. Avoid NSAID's 13. Anemia workup as per Hospitalist Service Admission and Anticipated Discharge Date Admission Date: November 04, 2024 Supervising Physician Co-Signing Physician Notes Patient was seen and personally examined. Chart, medications, telemetry reviewed. Full assessment and plan as outlined by advanced provider above. Care and management discussed in detail and personally endorsed Acute on chronic decompensated right heart failure with diffuse anasarca. Weight gain of at least 30 pounds. Patient responded to initial dose IV diuretics with only minimal improvement in lower extremity edema with significant thigh, presacral edema and increased abdominal girth present. Renal function tolerating diuresis Plan as outlined increase diuretic dosing. Furosemide 80 mg IV twice daily Increase spironolactone to 25 mg twice per day Metolazone 2.5 mg p.o. prior to next furosemide dose Continue oxygen supplementation and CPAP Chronic anemia present Checking iron indices Subjective Patient seen and examined. Chart, medications, telemetry reviewed "I need more Lasix." Urine output 3,600 mL over the past 24 hours, -2,700 mL fluid balance + Low back pain, bilateral knee pain. Breathing improved. No chest pain. No palpitations. Review of Systems Review of Systems: Complete Review of Systems is as stated above, negative, or noncontributory Physical Exam Physical Exam: General: No acute distress HENT: Normocephalic. Atraumatic. Eyes: PER. Conjunctiva pink, sclera clear. Neck: JVD. HJR. Heart: Irregularly irregular at 100 bpm. Grade II/ systolic murmur heard best at the LLSB. No diastolic murmur appreciated. No rub. Lungs: Diminished. Decreased. Right anterior rales. No wheeze. Abdomen: +BS. Distended. Firm. Nontender. No overt organomegaly. Extremities: 2+ chronic indurated edema with thickened dry scaling, mild erythema. Pulses: Posterior tibial=0/4. Results & Data Vital Signs (Past 12 Hours) Vital Signs Temp Pulse Pulse Resp BP Pulse Ox O2 Del Method 11/05/24 07:55 98 H 11/05/24 07:26 37.0 C 97 H 19 114/69 96 Nasal Cannula 11/05/24 02:38 36.4 C L 99 H 21 123/76 95 Nasal Cannula 11/04/24 22:38 36.8 C 99 H 20 115/71 96 Nasal Cannula O2 Flow Rate 11/05/24 07:55 11/05/24 07:26 4 11/05/24 02:38 4 11/04/24 22:38 4 Laboratory Results Cardiac Enzymes 11/04/24 11/04/24 11/04/24 Range/Units 10:28 12:31 16:19 AST 18 (13-39) U/L Troponin I High Sens 26.4 H 22.6 H 23.6 H (0-20) pg/ml B-Natriuretic Peptide 1763 H (0-100) pg/ml Coagulation 11/04/24 Range/Units 10:28 B-Natriuretic Peptide 1763 H (0-100) pg/ml CBC 11/04/24 11/05/24 Range/Units 10:28 05:26 WBC 5.71 5.38 (4.8-10.8) K/ul RBC 3.11 L 2.77 L (4.70-6.10) M/uL Hgb 8.6 L 7.7 L (14.0-18.0) g/dl Hct 30.1 L 26.9 L (42.0-52.0) % Plt Count 239 219 (130-400) K/uL Neut # (Auto) 4.06 3.69 (1.40-6.50) K/uL Lymph # (Auto) 0.66 L 0.58 L (1.20-3.40) K/uL Amelia # (Auto) 0.66 H 0.80 H (0.11-0.59) K/uL Eos # (Auto) 0.30 0.29 (0.00-0.50) K/uL Baso # (Auto) 0.01 0.01 (0.00-0.20) K/uL Comprehensive Metabolic Panel 11/04/24 11/05/24 Range/Units 10:28 05:26 Sodium 143 145 (136-145) mmol/L Potassium 3.9 3.9 (3.5-5.1) mmol/L Chloride 101 102 (98-107) mmol/L Carbon Dioxide 34 H 36 H (21-32) mmol/L BUN 45 H 43 H (6-23) mg/dl Creatinine 1.79 H 1.58 H (0.6-1.4) mg/dl Glucose 94 88 (70-99(Fasting)) mg/dl Calcium 9.1 8.8 (8.6-10.3) mg/dl AST 18 (13-39) U/L ALT 9 (7-52) U/L Alkaline Phosphatase 96 (34-104) U/L Total Protein 7.6 (6.0-8.3) gm/dl Albumin 3.9 (3.4-5.0) gm/dl Intake and Output 11/04/24 11/05/24 11/05/24 22:59 06:59 14:59 Intake Total 500 / 900 400 / 900 Output Total 2300 / 3600 300 / 3600 Balance -1800 / -2700 100 / -2700 Intake: Oral 500 / 900 400 / 900 Output: Urine Amount (Catheter) 2300 / 3600 300 / 3600 Coude 2300 / 3600 300 / 3600 Diagnostic Findings November 04, 2024 TTE ([facility], Dr. Alas): Normal size left ventricle. Moderate concentric LVH. Normal LV wall motion. LVEF 65 to 70%. Moderately dilated left atrium. Moderate to severely dilated right ventricle. Mildly reduced RV systolic function. Severely dilated right atrium. Bioprosthetic mitral valve, with normal gradient; bioprosthesis leaflets thickened but move well. Mitral valve velocities do not suggest significant stenosis. Mild tricuspid regurgitation. RVSP 45 to 50 mmHg. In comparison to prior study of 12/05/2023, right heart pressures are improved. Telemetry: Atrial fibrillation/flutter, heart rates in the 90s to low 100s. One 8 beat run of wide-complex tachycardia at 07:19:07 this morning, asymptomatic PG Care Time/CCT Total # of Minutes Spent Total Time Spent with Patient: Total time spent is greater than 50% in coordination of care (as documented) at patient's floor/unit and/or counseling patient: Coding Level of Care Code 09486 SUB INP/OBS CARE 3/50MIN Diagnoses Right-sided congestive heart failure I50.810 Pickwickian syndrome E66.2 S/P AVR (aortic valve replacement) Z95.2 S/P MVR (mitral valve replacement) Z95.2 Atrial fibrillation I48.91 Elevated troponin R79.89
[2024-11-05] MEDS: ACETAMINOPHEN 1,000 MG/100 ML VIAL IV STA (10:31)
--- NOTE | 2024-11-05 13:48 | Hospitalist Progress Note ---
Date of Service November 05, 2024 Assessment & Plan (1) Acute on chronic right-sided heart failure: Plan: Presented with increasing shortness of breath and increasing swelling of the legs and abdomen for the last few weeks Has been noncompliant with diuretics at home Chest x-ray evidence of acute CHF with elevated BNP Continue on IV Lasix 80 mg twice daily along with metolazone. Potassium supplement added Strict input and output monitoring (2) Chronic atrial fibrillation: Plan: History of chronic atrial fibrillation Has been on beta-lisa and the rate seems to be reasonably controlled Minimally increased troponin Demand ischemia Troponin mildly elevated with no delta gap Monitor for chest pain (3) H/O heart valve replacement with bioprosthetic valve: Plan: History of endocarditis and also bioprosthetic valve replacement of aortic and mitral valve Denies any chest pain and/or palpitation Echo shows EF of 65-70%; RV systolic function mildly reduced (4) Chronic venous stasis: Plan: Both the legs are bandaged Will get wound care evaluation while in the hospital (5) Sleep apnea: (6) Cirrhosis of liver: Plan: Moderate amount of ascites seen in Abd usg will consider paracentesis if abdomen continues to be distended after diuresis (7) Intracranial septic embolism: (8) Generalized weakness: Plan: Complaining of decreased mobility due to weakness and pain in the knee joint Does not have any acute arthritis involving any of the joint Will get PT OT evaluation Plan DVT prophylaxis Has been on Eliquis CODE STATUS DNR/DNI Time spent evaluating patient, direct bedside care, chart review, placing orders, interpretation of diagnostic studies, discussion with consultants, patient, and family members, as well as other required patient management activities is 50 minutes Please note the above document was generated using voice recognition software. It may contain grammatical, syntax or spelling errors. Any formal questions or concerns about the content, text or information contained within the body of this dictation should be directly addressed to the provider for clarification Admission and Anticipated Discharge Date Admission Date: November 04, 2024 Subjective Patient seen and examined at bedside. He reports that he is feels better compared to previous day. However continues to have significant fluid overload. Review of Systems Review of Systems: All systems reviewed & are unremarkable except as noted in Subjective Physical Exam Physical Exam: Constitutional: Awake alert oriented x 3; not in distress. Neck: trachea midline, no thyromegaly normal visual inspection Respiratory: Bilateral basal crackles present. Cardiovascular: RRR, no murmur, no edema Vessels: no JVD or carotid bruit Chest: normal inspection of chest Abdomen: normal bowel sounds, soft, nontender, no hepatosplenomegaly. Pitting edema in lower abdomen Musculoskeletal: Bilateral pitting edema 4+ present Neurologic: PERRL, EOMI, accommodation nl, no face palsy, no dysarthria CN's II- XI intact bilaterally and moves all extremities Results & Data Results & Data Vital Signs (Past 12 Hours) Vital Signs Temp Pulse Pulse Resp BP Pulse Ox O2 Del Method 11/05/24 11:38 101/63 11/05/24 11:15 36.9 C 98 H 19 96/57 L 95 Nasal Cannula 11/05/24 10:00 Nasal Cannula 11/05/24 07:55 98 H 11/05/24 07:26 37.0 C 97 H 19 114/69 96 Nasal Cannula 11/05/24 02:38 36.4 C L 99 H 21 123/76 95 Nasal Cannula O2 Flow Rate 11/05/24 11:38 11/05/24 11:15 4 11/05/24 10:00 4 11/05/24 07:55 11/05/24 07:26 4 11/05/24 02:38 4
[2024-11-05] MEDS: POTASSIUM CHLORIDE CRTAB 20 MEQ TABCR PO SCH (15:38)
[2024-11-06] MEDS: ACETAMINOPHEN 325 MG TAB PO PRN (00:12)
[2024-11-06 06:07] LABS: Anion Gap 7.0 (3-11); Blood Urea Nitrogen 47.0 mg/dl (6-23); Calcium 9.1 mg/dl (8.6-10.3); Carbon Dioxide 37.0 mmol/L (21-32); Chloride 99.0 mmol/L (98-107); Creatinine Clr Calc Pharmacy 48.3 ml/min; Glucose 94.0 mg/dl (70-99(Fasting)); Iron 35.0 mcg/dl (35-175); Magnesium 2.0 mg/dl (1.7-2.4); Potassium 4.3 mmol/L (3.5-5.1); Sodium 143.0 mmol/L (136-145); Total Iron Binding Cap Calc 427.0 mcg/dl (250-450); Transferrin 305.0 mg/dl (200-360); Transferrin (FE) Percent Satur 8.0 % (20-50)
[2024-11-06] MEDS: ACETAMINOPHEN 1,000 MG/100 ML VIAL IV STA (10:00)
[2024-11-06] MEDS: FUROSEMIDE 40 MG/4 ML VIAL IV SCH (13:36)
[2024-11-06] MEDS ORDERED: IRON SUCROSE 200 MG in SODIUM CHLORIDE 0.9% 100 ML IV ONE (13:50)
--- NOTE | 2024-11-06 14:03 | Cardiology Progress Note ---
Date of Service November 06, 2024 Assessment & Plan (1) Right-sided congestive heart failure: (2) Pickwickian syndrome: (3) S/P AVR (aortic valve replacement): (4) S/P MVR (mitral valve replacement): (5) Atrial fibrillation: (6) Elevated troponin: Plan Acute decompensated right heart failure, underlying severe right ventricular dysfunction, pulmonary hypertension, chronic atrial fibrillation/flutter, history of endocarditis and severe aortic valve stenosis status post mitral and aortic valve replacements. Recommendations: 1. Continue IV diuresis, increasing furosemide to 80 mg TID (order placed) 2. Continue spironolactone; add Jardiance 10mg qday (order placed) 3. Lara catheter in place 4. Strict I's and O's 5. Restrict sodium to less than 2,000 mg/day 6. Restrict fluids to less than 2,000 mL/day 7. Continue supplemental oxygen and CPAP therapy at night and when napping during the day. 8. Continue current dose of metoprolol succinate, rate control strategy for the permanent atrial fibrillation. Heart rates acceptable at present. 9. Continue anticoagulation care home 10. Maintain telemetry 11. Daily labs 12. Avoid NSAID's 13. Severe Iron Deficiency Anemia: Start IV iron, Venofer x 3 doses or as per pharmacy (order placed) I provided 55 min of care in regards to management of acute on chronic HFpEF Noe Lord MD Admission and Anticipated Discharge Date Admission Date: November 04, 2024 Subjective Patient seen and examined at bedside. He reports that he is feels better compared to previous day. However continues to have significant fluid overload. Review of Systems Review of Systems: Complete Review of Systems is as stated above, negative, or noncontributory Physical Exam Physical Exam: GEN: AAOx3; NAD HEENT: No JVD CV:Irregular rhythm; normal rate; no M/R/G PULM: CTA b/l; no W/R/R ABD: soft; NTND EXT: 2+ pitting edema to upper thighs Results & Data Vital Signs (Past 12 Hours) Vital Signs Temp Pulse Resp BP Pulse Ox O2 Del Method O2 Flow Rate 11/06/24 11:04 36.6 C 99 H 19 104/64 96 Nasal Cannula 4 11/06/24 08:00 Nasal Cannula 4 11/06/24 07:19 36.7 C 99 H 19 147/87 H 98 Nasal Cannula 4 11/06/24 03:08 36.7 C 96 H 20 118/72 98 Nasal Cannula 4 Results BMP Results: Sodium 143 mmol/L (136-145) 11/06/24 Potassium 4.3 mmol/L (3.5-5.1) 11/06/24 Chloride 99 mmol/L (98-107) 11/06/24 Carbon Dioxide 37 mmol/L (21-32) H 11/06/24 Anion Gap 7 (3-11) 11/06/24 BUN 47 mg/dl (6-23) H 11/06/24 Creatinine 1.89 mg/dl (0.6-1.4) H 11/06/24 Glucose 94 mg/dl (70-99(Fasting)) 11/06/24 PG Care Time/CCT Total # of Minutes Spent Total Time Spent with Patient: Total time spent is greater than 50% in coordination of care (as documented) at patient's floor/unit and/or counseling patient: Coding Level of Care Code 52426 SUB INP/OBS CARE 3/50MIN History Detailed Exam Detailed Medical Decision Making Moderate Complexity Diagnoses Right-sided congestive heart failure I50.810 Pickwickian syndrome E66.2 S/P AVR (aortic valve replacement) Z95.2 S/P MVR (mitral valve replacement) Z95.2 Atrial fibrillation I48.91 Elevated troponin R79.89 Time Spent (min) 55 Updated Medication List Medication Instructions Recorded Confirmed Type apixaban 5 mg tablet 5 mg PO QAM 12/05/23 11/04/24 History aspirin 81 mg capsule 81 mg PO QAM 12/05/23 11/04/24 History cholecalciferol (vitamin D3) 125 125 mcg PO DAILY 12/05/23 11/04/24 History mcg (5,000 unit) tablet (Vitamin D3) coenzyme Q10 100 mg capsule 100 mg PO DAILY 12/05/23 11/04/24 History (CoQ-10) magnesium oxide 400 mg (241.3 mg 400 mg PO DAILY #30 tabs 12/12/23 11/04/24 Rx magnesium) tablet torsemide 20 mg tablet 20 mg PO QAM #30 tabs 12/12/23 11/04/24 Rx metoprolol succinate 25 mg 100 mg PO BID 01/01/24 11/04/24 History tablet,extended release 24 hr spironolactone 25 mg tablet 25 mg PO DAILY 11/04/24 11/04/24 History
--- NOTE | 2024-11-06 14:22 | Hospitalist Progress Note ---
Date of Service November 06, 2024 Assessment & Plan (1) Acute on chronic right-sided heart failure: Plan: Presented with increasing shortness of breath and increasing swelling of the legs and abdomen for the last few weeks Has been noncompliant with diuretics at home Chest x-ray evidence of acute CHF with elevated BNP Echo shows EF of 65-70%; RV systolic function mildly reduced Lasix increased to 80 mg 3 times daily; Jardiance added on 11/06/2024. discussed with cardiolog Continue strict input and output monitoring (2) Chronic atrial fibrillation: Plan: History of chronic atrial fibrillation Has been on beta-lisa and the rate seems to be reasonably controlled on eliquis, continue Minimally increased troponin Demand ischemia Troponin mildly elevated with no delta gap Monitor for chest pain (3) H/O heart valve replacement with bioprosthetic valve: Plan: History of endocarditis and also bioprosthetic valve replacement of aortic and mitral valve Denies any chest pain and/or palpitation (4) Chronic venous stasis: Plan: wound care evaluated patient on 11/05/2024. (5) Sleep apnea: (6) Cirrhosis of liver: Plan: Moderate amount of ascites seen in Abd usg will consider paracentesis if abdomen continues to be distended after diuresis (7) Intracranial septic embolism: (8) Generalized weakness: Plan: Complaining of decreased mobility due to weakness and pain in the knee joint Does not have any acute arthritis involving any of the joint continue PT/OT Plan DVT prophylaxis Has been on Eliquis CODE STATUS DNR/DNI Time spent evaluating patient, direct bedside care, chart review, placing orders, interpretation of diagnostic studies, discussion with consultants, patient, and family members, as well as other required patient management activities is 50 minutes Please note the above document was generated using voice recognition software. It may contain grammatical, syntax or spelling errors. Any formal questions or concerns about the content, text or information contained within the body of this dictation should be directly addressed to the provider for clarification Admission and Anticipated Discharge Date Admission Date: November 04, 2024 Subjective Patient continues to report improvement in the symptoms. Urine output of 4800 cc in last 24 hours. Reports improvement in the bilateral leg swelling and edema Review of Systems Review of Systems: All systems reviewed & are unremarkable except as noted in Subjective Physical Exam Physical Exam: Constitutional: Awake alert oriented x 3; not in distress. Neck: trachea midline, no thyromegaly normal visual inspection Respiratory: Bilateral basal crackles present. Cardiovascular: RRR, no murmur, no edema Vessels: no JVD or carotid bruit Chest: normal inspection of chest Abdomen: normal bowel sounds, soft, nontender, no hepatosplenomegaly. Pitting edema in lower abdomen Musculoskeletal: Bilateral pitting edema 4+ present Neurologic: PERRL, EOMI, accommodation nl, no face palsy, no dysarthria CN's II- XI intact bilaterally and moves all extremities Results & Data Results & Data Vital Signs (Past 12 Hours) Vital Signs Temp Pulse Resp BP Pulse Ox O2 Del Method O2 Flow Rate 11/06/24 11:04 36.6 C 99 H 19 104/64 96 Nasal Cannula 4 11/06/24 08:00 Nasal Cannula 4 11/06/24 07:19 36.7 C 99 H 19 147/87 H 98 Nasal Cannula 4 11/06/24 03:08 36.7 C 96 H 20 118/72 98 Nasal Cannula 4
[2024-11-06] MEDS: EMPAGLIFLOZIN 10 MG TAB PO SCH (14:25)
[2024-11-06] MEDS: IRON SUCROSE 200 MG in SODIUM CHLORIDE 0.9% 100 ML IV ONE (15:10)
[2024-11-06] MEDS: POLYETHYLENE (MIRALAX) 17 GM PACK PO SCH (15:30)
[2024-11-07 06:08] LABS: Anion Gap 5.0 (3-11); Blood Urea Nitrogen 48.0 mg/dl (6-23); Calcium 9.2 mg/dl (8.6-10.3); Carbon Dioxide 42.0 mmol/L (21-32); Chloride 94.0 mmol/L (98-107); Creatinine Clr Calc Pharmacy 45.9 ml/min; Glucose 95.0 mg/dl (70-99(Fasting)); Magnesium 1.8 mg/dl (1.7-2.4); Potassium 4.4 mmol/L (3.5-5.1); Sodium 141.0 mmol/L (136-145)
[2024-11-07] MEDS: ACETAMINOPHEN 1,000 MG/100 ML VIAL IV PRN (09:51)
[2024-11-07 11:02] LABS: Uric Acid 13.5 mg/dl (2.6-7.2)
--- NOTE | 2024-11-07 11:25 | Cardiology Progress Note ---
Date of Service November 07, 2024 Assessment & Plan (1) Right-sided congestive heart failure: (2) Pickwickian syndrome: (3) S/P AVR (aortic valve replacement): (4) S/P MVR (mitral valve replacement): (5) Atrial fibrillation: (6) Elevated troponin: Plan Acute decompensated right heart failure, underlying severe right ventricular dysfunction, pulmonary hypertension, chronic atrial fibrillation/flutter, history of endocarditis and severe aortic valve stenosis status post mitral and aortic valve replacements. Recommendations: 1. Continue IV diuresis with lasix 80mg TID 2. Continue spironolactone; continue Jardiance 10mg qday 3. Lara catheter in place 4. Strict I's and O's 5. Restrict sodium to less than 2,000 mg/day 6. Restrict fluids to less than 2,000 mL/day 7. Continue supplemental oxygen and CPAP therapy at night and when napping during the day. 8. Continue current dose of metoprolol succinate, rate control strategy for the permanent atrial fibrillation. Heart rates acceptable at present. 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 Maintain telemetry 11. Daily labs 12. Avoid NSAID's 13. Severe Iron Deficiency Anemia: Continue IV iron, Venofer x 3 doses I provided 55 min of care in regards to management of acute on chronic HFpEF Noe Lord MD Admission and Anticipated Discharge Date Admission Date: November 04, 2024 Subjective Patient continues to make urine. Still volume overloaded Denies chest pain. No N/V/LAKE; afebrile. No PND or Orthopnea. Review of Systems Review of Systems: Complete Review of Systems is as stated above, negative, or noncontributory Physical Exam Physical Exam: GEN: AAOx3; NAD HEENT: No JVD CV:Irregular rhythm; normal rate; no M/R/G PULM: CTA b/l; no W/R/R ABD: soft; NTND EXT: 1+ pitting edema to upper thighs Results & Data Vital Signs (Past 12 Hours) Vital Signs Temp Pulse Pulse Resp BP Pulse Ox O2 Del Method 11/07/24 11:12 37 C 100 H 21 101/62 96 Nasal Cannula 11/07/24 09:16 99 H 11/07/24 09:01 93 Nasal Cannula 11/07/24 08:00 Nasal Cannula 11/07/24 07:13 37 C 100 H 23 122/75 94 Nasal Cannula 11/07/24 03:01 37.3 C 93 H 19 124/75 98 Nasal Cannula 11/06/24 23:47 99 H O2 Flow Rate 11/07/24 11:12 5 11/07/24 09:16 11/07/24 09:01 3 11/07/24 08:00 3 11/07/24 07:13 5 11/07/24 03:01 4 11/06/24 23:47 Results Complete Blood Count Results: RBC 2.77 M/uL (4.70-6.10) L 11/05/24 WBC 5.38 K/ul (4.8-10.8) 11/05/24 Hgb 7.7 g/dl (14.0-18.0) L 11/05/24 Hct 26.9 % (42.0-52.0) L 11/05/24 Plt Count 219 K/uL (130-400) 11/05/24 Results BMP Results: Sodium 141 mmol/L (136-145) 11/07/24 Potassium 4.4 mmol/L (3.5-5.1) 11/07/24 Chloride 94 mmol/L (98-107) L 11/07/24 Carbon Dioxide 42 mmol/L (21-32) H* 11/07/24 Anion Gap 5 (3-11) 11/07/24 BUN 48 mg/dl (6-23) H 11/07/24 Creatinine 1.99 mg/dl (0.6-1.4) H 11/07/24 Glucose 95 mg/dl (70-99(Fasting)) 11/07/24 Results Cardiology Web EHR Widget: Cardiology Consultation 11/04/24 14:10 Cardiology Progress Note 11/06/24 13:58 Electrocardiogram 12/06/23 05:02 Echocardiogram 11/04/24 15:00 Transthoracic Echocardiogram 02/15/20 09:02 Transesophageal Echocardiogram 02/29/20 00:00 Troponin I 0.580 ng/ml (0-0.045) H* 02/15/20 08:32 Troponin I High Sens 23.6 pg/ml (0-20) H 11/04/24 16:19 B-Natriuretic Peptide 1763 pg/ml (0-100) H 11/04/24 10:28 APTT 30 Seconds (21-31) 12/05/23 15:00 PT 12.6 Seconds (9.0-12.0) H 12/05/23 15:00 INR 1.2 (0.9-1.1) H 12/05/23 15:00 Sodium 141 mmol/L (136-145) 11/07/24 05:04 Potassium 4.4 mmol/L (3.5-5.1) 11/07/24 05:04 BUN 48 mg/dl (6-23) H 11/07/24 05:04 Creatinine 1.99 mg/dl (0.6-1.4) H 11/07/24 05:04 Glucose 95 mg/dl (70-99(Fasting)) 11/07/24 05:04 Magnesium 1.8 mg/dl (1.7-2.4) 11/07/24 05:04 AST 18 U/L (13-39) 11/04/24 10:28 ALT 9 U/L (7-52) 11/04/24 10:28 TSH 3.810 uIu/ml (0.300-4.500) 07/06/20 08:45 Cholesterol 81 mg/dl (0-200) 02/16/20 06:33 LDL Cholesterol, Calc 43 mg/dl 02/16/20 06:33 HDL Cholesterol 16 mg/dl 02/16/20 06:33 Triglycerides 111 mg/dl (0-150) 02/16/20 06:33 WBC 5.38 K/ul (4.8-10.8) 11/05/24 05:26 Hgb 7.7 g/dl (14.0-18.0) L 11/05/24 05:26 Plt Count 219 K/uL (130-400) 11/05/24 05:26 PG Care Time/CCT Total # of Minutes Spent Total Time Spent with Patient: Total time spent is greater than 50% in coordination of care (as documented) at patient's floor/unit and/or counseling patient: Coding [place] [address] SUB INP/OBS CARE 3/50MIN Patient Type Established History Comprehensive Exam Comprehensive Medical Decision Making High Complexity Diagnoses Right-sided congestive heart failure I50.810 Pickwickian syndrome E66.2 S/P AVR (aortic valve replacement) Z95.2 S/P MVR (mitral valve replacement) Z95.2 Atrial fibrillation I48.91 Elevated troponin R79.89 Time Spent (min) 55 Updated Medication List Medication Instructions Recorded Confirmed Type apixaban 5 mg tablet 5 mg PO QAM 12/05/23 11/04/24 History aspirin 81 mg capsule 81 mg PO QAM 12/05/23 11/04/24 History cholecalciferol (vitamin D3) 125 125 mcg PO DAILY 12/05/23 11/04/24 History mcg (5,000 unit) tablet (Vitamin D3) coenzyme Q10 100 mg capsule 100 mg PO DAILY 12/05/23 11/04/24 History (CoQ-10) magnesium oxide 400 mg (241.3 mg 400 mg PO DAILY #30 tabs 12/12/23 11/04/24 Rx magnesium) tablet torsemide 20 mg tablet 20 mg PO QAM #30 tabs 12/12/23 11/04/24 Rx metoprolol succinate 25 mg 100 mg PO BID 01/01/24 11/04/24 History tablet,extended release 24 hr spironolactone 25 mg tablet 25 mg PO DAILY 11/04/24 11/04/24 History Meds Home Medications and Allergies Home Medications Medication Instructions Recorded Confirmed Type apixaban 5 mg tablet 5 mg PO QAM 12/05/23 11/04/24 History aspirin 81 mg capsule 81 mg PO QAM 12/05/23 11/04/24 History cholecalciferol (vitamin D3) 125 125 mcg PO DAILY 12/05/23 11/04/24 History mcg (5,000 unit) tablet (Vitamin D3) coenzyme Q10 100 mg capsule 100 mg PO DAILY 12/05/23 11/04/24 History (CoQ-10) metoprolol succinate 25 mg 100 mg PO BID 01/01/24 11/04/24 History tablet,extended release 24 hr spironolactone 25 mg tablet 25 mg PO DAILY 11/04/24 11/04/24 History Allergies Allergy/AdvReac Type Severity Reaction Status Date / Time amoxicillin Allergy Intermediate Rash Verified 01/22/24 06:20 cyclobenzaprine AdvReac Intermediate Rash Verified 01/22/24 06:20
[2024-11-07] MEDS: predniSONE 20 MG TAB PO SCH (11:36)
--- NOTE | 2024-11-07 11:39 | Hospitalist Progress Note ---
Date of Service November 07, 2024 Assessment & Plan (1) Acute on chronic right-sided heart failure: Plan: Presented with increasing shortness of breath and increasing swelling of the legs and abdomen for the last few weeks Has been noncompliant with diuretics at home Chest x-ray evidence of acute CHF with elevated BNP Echo shows EF of 65-70%; RV systolic function mildly reduced Lasix increased to 80 mg 3 times daily; Jardiance added on 11/06/2024. discussed with cardiology Continue strict input and output monitoring Left knee pain Possible gout/pseudogout Patient reports increasing pain, swelling of left knee from 11/06/2024; Will obtain x-ray of the knee Empirically started on prednisone 40 mg; will monitor response Uric acid of 13.5 mg/DL (2) Chronic atrial fibrillation: Plan: History of chronic atrial fibrillation Has been on beta-lisa and the rate seems to be reasonably controlled on eliquis, continue. Patient reports that he has been taking Eliquis 5 mg once a day given his history of nosebleeds. I discussed with patient that the dosing is not adequate for stroke prophylaxis, and he is at risk for stroke but patient reports stated that he prefers to be on once a day Eliquis. Minimally increased troponin Demand ischemia Troponin mildly elevated with no delta gap Monitor for chest pain (3) H/O heart valve replacement with bioprosthetic valve: Plan: History of endocarditis and also bioprosthetic valve replacement of aortic and mitral valve Denies any chest pain and/or palpitation (4) Chronic venous stasis: Plan: wound care evaluated patient on 11/05/2024. (5) Sleep apnea: (6) Cirrhosis of liver: Plan: Moderate amount of ascites seen in Abd usg will consider paracentesis if abdomen continues to be distended after diuresis (7) Intracranial septic embolism: (8) Generalized weakness: Plan: Complaining of decreased mobility due to weakness and pain in the knee joint Does not have any acute arthritis involving any of the joint continue PT/OT Plan DVT prophylaxis Has been on Eliquis CODE STATUS DNR/DNI Time spent evaluating patient, direct bedside care, chart review, placing orders, interpretation of diagnostic studies, discussion with consultants, patient, and family members, as well as other required patient management activities is 50 minutes Please note the above document was generated using voice recognition software. It may contain grammatical, syntax or spelling errors. Any formal questions or concerns about the content, text or information contained within the body of this dictation should be directly addressed to the provider for clarification Admission and Anticipated Discharge Date Admission Date: November 04, 2024 Subjective Patient seen and examined at bedside. He reports pain in his left knee; ROM limited by pain. Urine output is reassuring with output of 6800 mL in last 24 hours. Review of Systems Review of Systems: All systems reviewed & are unremarkable except as noted in Subjective Physical Exam Physical Exam: Constitutional: Awake alert oriented x 3; not in distress. Neck: trachea midline, no thyromegaly normal visual inspection Respiratory: Bilateral basal crackles present. Cardiovascular: RRR, no murmur, no edema Vessels: no JVD or carotid bruit Chest: normal inspection of chest Abdomen: normal bowel sounds, soft, nontender, no hepatosplenomegaly. Pitting edema in lower abdomen Musculoskeletal: Bilateral pitting edema 2+ present; Chronic skin changes. Tenderness, slight increased warmth on left knee Neurologic: PERRL, EOMI, accommodation nl, no face palsy, no dysarthria CN's II- XI intact bilaterally and moves all extremities Results & Data Results & Data Vital Signs (Past 12 Hours) Vital Signs Temp Pulse Pulse Resp BP Pulse Ox O2 Del Method 11/07/24 11:12 37 C 100 H 21 101/62 96 Nasal Cannula 11/07/24 09:16 99 H 11/07/24 09:01 93 Nasal Cannula 11/07/24 08:00 Nasal Cannula 11/07/24 07:13 37 C 100 H 23 122/75 94 Nasal Cannula 11/07/24 03:01 37.3 C 93 H 19 124/75 98 Nasal Cannula 11/06/24 23:47 99 H O2 Flow Rate 11/07/24 11:12 5 11/07/24 09:16 11/07/24 09:01 3 11/07/24 08:00 3 11/07/24 07:13 5 11/07/24 03:01 4 11/06/24 23:47
[2024-11-07] MEDS: IRON SUCROSE 200 MG in SODIUM CHLORIDE 0.9% 100 ML IV SCH (13:22)
--- NOTE | 2024-11-07 13:27 | XRay Report ---
XR knee LT 1 or 2V routine CLINICAL HISTORY: Left knee pain and swelling. COMPARISON: Left knee radiographs June 29, 2020. FINDINGS: Medial translation of the femur with respect to the tibia is noted. There is severe left k nee osteoarthritis with tricompartmental joint space narrowing and osteophytosis. Inferior and superi or patellar spurring is noted. There are no acute fractures. Possible small to moderate left knee juan manuel nt effusion. IMPRESSION: 1. Severe left knee osteoarthritis. 2. No acute fractures. Possible small to moderate left knee joint effusion. ACT 112: Negative or not required by law. Electronically signed by: Taz Grant M.D. 11/07/2024 1:26 PM
[2024-11-07] MEDS ORDERED: MICONAZOLE NITRATE POWDER 85 GM EXT PRN (17:45)
[2024-11-08 06:36] LABS: Anion Gap 7.0 (3-11); Blood Urea Nitrogen 57.0 mg/dl (6-23); Calcium 9.5 mg/dl (8.6-10.3); Carbon Dioxide 42.0 mmol/L (21-32); Chloride 92.0 mmol/L (98-107); Creatinine Clr Calc Pharmacy 48.6 ml/min; Glucose 117.0 mg/dl (70-99(Fasting)); Magnesium 2.1 mg/dl (1.7-2.4); Potassium 4.6 mmol/L (3.5-5.1); Sodium 141.0 mmol/L (136-145)
--- NOTE | 2024-11-08 10:44 | Hospitalist Progress Note ---
Date of Service November 08, 2024 Assessment & Plan (1) Acute on chronic right-sided heart failure: Plan: Presented with increasing shortness of breath and increasing swelling of the legs and abdomen for the last few weeks Has been noncompliant with diuretics at home Chest x-ray evidence of acute CHF with elevated BNP Echo shows EF of 65-70%; RV systolic function mildly reduced Continue on lasix 80 mg 3 times daily;also on spironolactone Jardiance added on 11/06/2024. Continue strict input and output monitoring Left knee pain Possible gout/pseudogout Patient reports increasing pain, swelling of left knee from 11/06/2024; X-ray shows severe left knee osteoarthritis with small to moderate left knee joint effusion Empirically started on prednisone 40 mg; reports improvement Uric acid of 13.5 mg/DL; will need addition of allopurinol after acute flare has improved. (2) Chronic atrial fibrillation: Plan: History of chronic atrial fibrillation Has been on beta-lisa and the rate seems to be reasonably controlled on eliquis, continue. Patient reports that he has been taking Eliquis 5 mg once a day given his history of nosebleeds. I discussed with patient that the dosing is not adequate for stroke prophylaxis, and he is at risk for stroke but patient reports stated that he prefers to be on once a day Eliquis. Minimally increased troponin Demand ischemia Troponin mildly elevated with no delta gap Monitor for chest pain (3) H/O heart valve replacement with bioprosthetic valve: Plan: History of endocarditis and also bioprosthetic valve replacement of aortic and mitral valve Denies any chest pain and/or palpitation (4) Chronic venous stasis: Plan: wound care evaluated patient on 11/05/2024. (5) Sleep apnea: (6) Cirrhosis of liver: Plan: Moderate amount of ascites seen in Abd usg will consider paracentesis if abdomen continues to be distended after diuresis (7) Intracranial septic embolism: (8) Generalized weakness: Plan: Complaining of decreased mobility due to weakness and pain in the knee joint Does not have any acute arthritis involving any of the joint continue PT/OT Plan DVT prophylaxis Has been on Eliquis CODE STATUS DNR/DNI Time spent evaluating patient, direct bedside care, chart review, placing orders, interpretation of diagnostic studies, discussion with consultants, patient, and family members, as well as other required patient management activities is 50 minutes Please note the above document was generated using voice recognition software. It may contain grammatical, syntax or spelling errors. Any formal questions or concerns about the content, text or information contained within the body of this dictation should be directly addressed to the provider for clarification Admission and Anticipated Discharge Date Admission Date: November 04, 2024 Subjective Patient seen and examined at bedside. He reports improvement in pain of the left knee. Continued improvement in bilateral lower extremity edema. Review of Systems Review of Systems: All systems reviewed & are unremarkable except as noted in Subjective Physical Exam Physical Exam: Constitutional: Awake alert oriented x 3; not in distress. Neck: trachea midline, no thyromegaly normal visual inspection Respiratory: Bilateral basal crackles present. Cardiovascular: RRR, no murmur, no edema Vessels: no JVD or carotid bruit Chest: normal inspection of chest Abdomen: normal bowel sounds, soft, nontender, no hepatosplenomegaly. Pitting edema in lower abdomen Musculoskeletal: Bilateral pitting edema 2+ present; Chronic skin changes. Tenderness, slight increased warmth on left knee; improved Neurologic: PERRL, EOMI, accommodation nl, no face palsy, no dysarthria CN's II- XI intact bilaterally and moves all extremities Results & Data Results & Data Vital Signs (Past 12 Hours) Vital Signs Temp Pulse Pulse Resp BP Pulse Ox O2 Del Method 11/08/24 07:55 Nasal Cannula 11/08/24 07:40 36.5 C 87 20 131/81 98 Nasal Cannula 11/08/24 02:54 36.3 C L 92 H 15 115/72 99 Nasal Cannula 11/08/24 00:23 99 H 11/08/24 00:14 Nasal Cannula 11/07/24 22:55 37.0 C 97 H 16 117/70 97 Nasal Cannula O2 Flow Rate 11/08/24 07:55 2 11/08/24 07:40 4 11/08/24 02:54 2 11/08/24 00:23 11/08/24 00:14 2 11/07/24 22:55 2
--- NOTE | 2024-11-08 11:18 | Cardiology Progress Note ---
Date of Service November 08, 2024 Assessment & Plan (1) Right-sided congestive heart failure: (2) Pickwickian syndrome: (3) S/P AVR (aortic valve replacement): (4) S/P MVR (mitral valve replacement): (5) Atrial fibrillation: (6) Elevated troponin: Plan Acute decompensated right heart failure, underlying severe right ventricular dysfunction, pulmonary hypertension, chronic atrial fibrillation/flutter, history of endocarditis and severe aortic valve stenosis status post mitral and aortic valve replacements. Recommendations: 1. Continue IV diuresis with lasix 80mg TID 2. Continue spironolactone; continue Jardiance 10mg qday 3. Lara catheter in place 4. Strict I's and O's 5. Restrict sodium to less than 2,000 mg/day 6. Restrict fluids to less than 2,000 mL/day 7. Continue supplemental oxygen and CPAP therapy at night and when napping during the day. 8. Continue current dose of metoprolol succinate, rate control strategy for the permanent atrial fibrillation. Heart rates acceptable at present. 9. 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 Maintain telemetry 11. Daily labs 12. Avoid NSAID's 13. Severe Iron Deficiency Anemia: Continue IV iron, Venofer x 3 doses (total) I provided 55 min of care in regards to management of acute on chronic HFpEF Noe Lord MD Admission and Anticipated Discharge Date Admission Date: November 04, 2024 Subjective Improving LE edema. Diuresing No chest pain. No N/V/LAKE; afebrile. No PND or orthopnea. No palpitations. Review of Systems Review of Systems: Complete Review of Systems is as stated above, negative, or noncontributory Physical Exam Physical Exam: GEN: AAOx3; NAD HEENT: No JVD CV:Irregular rhythm; normal rate; no M/R/G PULM: CTA b/l; no W/R/R ABD: soft; NTND EXT: 1+ pitting edema to upper thighs Results & Data Vital Signs (Past 12 Hours) Vital Signs Temp Pulse Pulse Resp BP Pulse Ox O2 Del Method 11/08/24 07:55 Nasal Cannula 11/08/24 07:40 36.5 C 87 20 131/81 98 Nasal Cannula 11/08/24 02:54 36.3 C L 92 H 15 115/72 99 Nasal Cannula 11/08/24 00:23 99 H 11/08/24 00:14 Nasal Cannula O2 Flow Rate 11/08/24 07:55 2 11/08/24 07:40 4 11/08/24 02:54 2 11/08/24 00:23 11/08/24 00:14 2 Results BMP Results: Sodium 141 mmol/L (136-145) 11/08/24 Potassium 4.6 mmol/L (3.5-5.1) 11/08/24 Chloride 92 mmol/L (98-107) L 11/08/24 Carbon Dioxide 42 mmol/L (21-32) H* 11/08/24 Anion Gap 7 (3-11) 11/08/24 BUN 57 mg/dl (6-23) H 11/08/24 Creatinine 1.88 mg/dl (0.6-1.4) H 11/08/24 Glucose 117 mg/dl (70-99(Fasting)) H 11/08/24 Results CBC w Diff Results: RBC 2.77 M/uL (4.70-6.10) L 11/05/24 WBC 5.38 K/ul (4.8-10.8) 11/05/24 Hgb 7.7 g/dl (14.0-18.0) L 11/05/24 Hct 26.9 % (42.0-52.0) L 11/05/24 MCV 97.1 fL (80.0-100.0) 11/05/24 MCH 27.8 pg (25.0-34.0) 11/05/24 MCHC 28.6 g/dL (32.0-36.0) L 11/05/24 RDW Standard Deviation 56.8 fL (36.4-46.3) H 11/05/24 RDW Coefficient of Variation 15.9 % (11.5-14.5) H 11/05/24 Plt Count 219 K/uL (130-400) 11/05/24 MPV 11.1 fL (9.4-12.4) 11/05/24 Neutrophils (%) (Auto) 68.5 % 11/05/24 Lymphocytes (%) (Auto) 10.8 % 11/05/24 Monocytes # (Auto) 0.80 K/uL (0.11-0.59) H 11/05/24 Eosinophils # (Auto) 0.29 K/uL (0.00-0.50) 11/05/24 Immature Granulocyte % (Auto) 0.2 % 11/05/24 Neutrophils # (Auto) 3.69 K/uL (1.40-6.50) 11/05/24 Lymphocytes # (Auto) 0.58 K/uL (1.20-3.40) L 11/05/24 Monocytes # (Auto) 0.80 K/uL (0.11-0.59) H 11/05/24 Eosinophils # (Auto) 0.29 K/uL (0.00-0.50) 11/05/24 Basophils # (Auto) 0.01 K/uL (0.00-0.20) 11/05/24 Immature Granulocyte # (Auto) 0.01 K/uL (0.01-0.20) 5 Giant Platelets 1+ 02/16/20 Polychromasia 1+ 11/05/24 Echinocytes 1+ 02/16/20 Ovalocytes 1+ 11/05/24 PG Care Time/CCT Total # of Minutes Spent Total Time Spent with Patient: Total time spent is greater than 50% in coordination of care (as documented) at patient's floor/unit and/or counseling patient: [place] [address] SUB INP/OBS CARE 3/50MIN Patient Type Established History Comprehensive Exam Comprehensive Medical Decision Making High Complexity Diagnoses Right-sided congestive heart failure I50.810 Pickwickian syndrome E66.2 S/P AVR (aortic valve replacement) Z95.2 S/P MVR (mitral valve replacement) Z95.2 Atrial fibrillation I48.91 Elevated troponin R79.89 Time Spent (min) 55 Meds Home Medications and Allergies Home Medications Medication Instructions Recorded Confirmed Type apixaban 5 mg tablet 5 mg PO QAM 12/05/23 11/04/24 History aspirin 81 mg capsule 81 mg PO QAM 12/05/23 11/04/24 History cholecalciferol (vitamin D3) 125 125 mcg PO DAILY 12/05/23 11/04/24 History mcg (5,000 unit) tablet (Vitamin D3) coenzyme Q10 100 mg capsule 100 mg PO DAILY 12/05/23 11/04/24 History (CoQ-10) metoprolol succinate 25 mg 100 mg PO BID 01/01/24 11/04/24 History tablet,extended release 24 hr spironolactone 25 mg tablet 25 mg PO DAILY 11/04/24 11/04/24 History Allergies Allergy/AdvReac Type Severity Reaction Status Date / Time amoxicillin Allergy Intermediate Rash Verified 01/22/24 06:20 cyclobenzaprine AdvReac Intermediate Rash Verified 01/22/24 06:20
[2024-11-09 07:04] LABS: Anion Gap 8.0 (3-11); Blood Urea Nitrogen 64.0 mg/dl (6-23); Calcium 9.4 mg/dl (8.6-10.3); Carbon Dioxide 44.0 mmol/L (21-32); Chloride 88.0 mmol/L (98-107); Creatinine Clr Calc Pharmacy 45.8 ml/min; Glucose 98.0 mg/dl (70-99(Fasting)); Potassium 5.0 mmol/L (3.5-5.1); Sodium 140.0 mmol/L (136-145)
--- NOTE | 2024-11-09 11:44 | Cardiology Progress Note ---
Date of Service November 09, 2024 Assessment & Plan (1) Right-sided congestive heart failure: (2) Pickwickian syndrome: (3) S/P AVR (aortic valve replacement): (4) S/P MVR (mitral valve replacement): (5) Atrial fibrillation: (6) Elevated troponin: Plan Acute decompensated right heart failure, underlying severe right ventricular dysfunction, pulmonary hypertension, chronic atrial fibrillation/flutter, history of endocarditis and severe aortic valve stenosis status post mitral and aortic valve replacements. Responding well to diuretics, 4.8 L of urine output noted in the last 24 hours, negative fluid balance of 3.6 L Potassium level has trended up to 5 mmol/L. Will therefore hold spironolactone and potassium chloride for now. Recommendations: 1. Continue IV diuresis with lasix 80mg TID 2. Continue Jardiance 10mg qday 3. Lara catheter in place 4. Strict I's and O's 5. Restrict sodium to less than 2,000 mg/day 6. Restrict fluids to less than 2,000 mL/day 7. Continue supplemental oxygen and CPAP therapy at night and when napping during the day. 8. Continue current dose of metoprolol succinate, rate control strategy for the permanent atrial fibrillation. Heart rates acceptable at present. 9. 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 Maintain telemetry 11. Daily labs Amrin Young DO Admission and Anticipated Discharge Date Admission Date: November 04, 2024 Subjective Patient seen in cardiology follow up. He was sitting in the bedside chair upright, without acute complaints. Lara catheter in place. Review of Systems Review of Systems: Complete Review of Systems is as stated above, negative, or noncontributory Physical Exam Constitutional: WD/WN, vitals as above Eyes: PERRL, conjunctivae normal, anicteric sclerae Respiratory: Auscultation: + diminished lung sounds (decreased BS bilaterally at the bases ) Cardiovascular: Rate/Rhythm: + irregularly irregular Heart Sounds: + murmur (1/6 SM ) Extremities: + edema (1-2 + LE edema, chronic venous stasis changes ) Gastrointestinal (Abdomen): Percussion/Palpation: + ascites; abdomen nontender Neurologic: PERRL, EOMI, accommodation nl, no face palsy, no dysarthria Results & Data Vital Signs (Past 12 Hours) Vital Signs Temp Pulse Pulse Resp BP Pulse Ox O2 Del Method 11/09/24 10:46 36.3 C L 101 H 22 105/65 98 Nasal Cannula 11/09/24 07:31 36.5 C 20 147/82 H 99 Nasal Cannula 11/09/24 07:25 Nasal Cannula 11/09/24 03:58 36.6 C 77 18 116/73 93 CPAP 11/09/24 00:05 97 H O2 Flow Rate 11/09/24 10:46 4 11/09/24 07:31 3 11/09/24 07:25 2 11/09/24 03:58 11/09/24 00:05 Laboratory Results Comprehensive Metabolic Panel 11/09/24 Range/Units 05:29 Sodium 140 (136-145) mmol/L Potassium 5.0 (3.5-5.1) mmol/L Chloride 88 L (98-107) mmol/L Carbon Dioxide 44 H* (21-32) mmol/L BUN 64 H (6-23) mg/dl Creatinine 1.91 H (0.6-1.4) mg/dl Glucose 98 (70-99(Fasting)) mg/dl Calcium 9.4 (8.6-10.3) mg/dl Intake and Output 11/08/24 11/09/24 11/09/24 22:59 06:59 14:59 Intake Total 510 / 1160 150 / 1160 Output Total 2800 / 4801 700 / 4801 625 / 625 Balance -2290 / -3641 -550 / -3641 -625 / -625 Intake: IV 110 / 210 100 / 210 Acetaminophen 1,000 mg In 100 100 / 100 ml @ 400 mls/hr IV DAILY PRN Rx #:[id number] Iron Sucrose 200 mg In Sodium 110 / 110 Chloride 0.9% 100 ml @ 220 mls/ hr IV DAILY@1300 PIPER Rx#: [id number] Oral 400 / 950 50 / 950 Output: Urine Amount (Catheter) 2800 / 4800 700 / 4800 625 / 625 Coude 2800 / 4800 700 / 4800 625 / 625 Other: Weight 107.5 kg Weight Measurement Method Built in [facility] PG Care Time/CCT Total # of Minutes Spent Total Time Spent with Patient: Total time spent is greater than 50% in coordination of care (as documented) at patient's floor/unit and/or counseling patient: Coding Level of Care Code 61142 SUB INP/OBS CARE MIN Diagnoses Right-sided congestive heart failure I50.810 Pickwickian syndrome E66.2 S/P AVR (aortic valve replacement) Z95.2 S/P MVR (mitral valve replacement) Z95.2 Permanent atrial fibrillation I48.21 Atrial fibrillation type: permanent Elevated troponin R79.89 (5) Atrial fibrillation Atrial fibrillation type: permanent Qualified Code(s): I48.21 - Permanent atrial fibrillation
--- NOTE | 2024-11-09 11:47 | Hospitalist Progress Note ---
Date of Service November 09, 2024 Assessment & Plan (1) Acute on chronic right-sided heart failure: Plan: Presented with increasing shortness of breath and increasing swelling of the legs and abdomen for the last few weeks Has been noncompliant with diuretics at home Chest x-ray evidence of acute CHF with elevated BNP Echo shows EF of 65-70%; RV systolic function mildly reduced Continue on lasix 80 mg 3 times daily;also on spironolactone Jardiance added on 11/06/2024. Continue strict input and output monitoring Left knee pain Possible gout Patient reports increasing pain, swelling of left knee from 11/06/2024; X-ray shows severe left knee osteoarthritis with small to moderate left knee joint effusion Empirically started on prednisone 40 mg; reports improvement.He also reported previous history of pain, swelling on his left toe which seems consistent with a gout flare in the past. Uric acid of 13.5 mg/DL; will need addition of allopurinol after acute flare has improved. (2) Chronic atrial fibrillation: Plan: History of chronic atrial fibrillation Has been on beta-lisa and the rate seems to be reasonably controlled on eliquis, continue. Patient reports that he has been taking Eliquis 5 mg once a day given his history of nosebleeds. I discussed with patient that the dosing is not adequate for stroke prophylaxis, and he is at risk for stroke but patient reports stated that he prefers to be on once a day Eliquis. Minimally increased troponin Demand ischemia Troponin mildly elevated with no delta gap Monitor for chest pain (3) H/O heart valve replacement with bioprosthetic valve: Plan: History of endocarditis and also bioprosthetic valve replacement of aortic and mitral valve Denies any chest pain and/or palpitation (4) Chronic venous stasis: Plan: wound care evaluated patient on 11/05/2024. (5) Sleep apnea: (6) Cirrhosis of liver: Plan: Moderate amount of ascites seen in Abd usg will consider paracentesis if abdomen continues to be distended after diuresis (7) Intracranial septic embolism: (8) Generalized weakness: Plan: Complaining of decreased mobility due to weakness continue PT/OT Plan DVT prophylaxis Has been on Eliquis CODE STATUS DNR/DNI Time spent evaluating patient, direct bedside care, chart review, placing orders, interpretation of diagnostic studies, discussion with consultants, patient, and family members, as well as other required patient management activities is 50 minutes Please note the above document was generated using voice recognition software. It may contain grammatical, syntax or spelling errors. Any formal questions or concerns about the content, text or information contained within the body of this dictation should be directly addressed to the provider for clarification Admission and Anticipated Discharge Date Admission Date: November 04, 2024 Subjective Patient continues to report improvement in bilateral lower extremity swelling and edema. His weight has improved from 116kg on admission to 107kg. Review of Systems Review of Systems: All systems reviewed & are unremarkable except as noted in Subjective Physical Exam Physical Exam: Constitutional: Awake alert oriented x 3; not in distress. Neck: trachea midline, no thyromegaly normal visual inspection Respiratory: Bilateral basal crackles present. Cardiovascular: RRR, no murmur, no edema Vessels: no JVD or carotid bruit Chest: normal inspection of chest Abdomen: normal bowel sounds, soft, nontender, no hepatosplenomegaly. Pitting edema in lower abdomen Musculoskeletal: Bilateral pitting edema 2+ present; Chronic skin changes. Tenderness, slight increased warmth on left knee; improved Neurologic: PERRL, EOMI, accommodation nl, no face palsy, no dysarthria CN's II- XI intact bilaterally and moves all extremities Results & Data Results & Data Vital Signs (Past 12 Hours) Vital Signs Temp Pulse Pulse Resp BP Pulse Ox O2 Del Method 11/09/24 10:46 36.3 C L 101 H 22 105/65 98 Nasal Cannula 11/09/24 07:31 36.5 C 20 147/82 H 99 Nasal Cannula 11/09/24 07:25 Nasal Cannula 11/09/24 03:58 36.6 C 77 18 116/73 93 CPAP 11/09/24 00:05 97 H O2 Flow Rate 11/09/24 10:46 4 11/09/24 07:31 3 11/09/24 07:25 2 11/09/24 03:58 11/09/24 00:05
--- NOTE | 2024-11-09 18:34 | Electrocardiogram Report ---
Test Reason : Blood Pressure : */* mmHG Vent. Rate : 76 BPM Atrial Rate : 220 BPM P-R Int : * ms QRS Dur : 104 ms QT Int : 404 ms P-R-T Axes : * 237 92 degrees QTcB Int : 454 ms Atrial fibrillation Lateral infarct , age undetermined Abnormal ECG When compared with ECG of 06-Dec-2023 05:02, Lateral infarct is now Present Inferior infarct is now Present Confirmed by Marvin Lovelace ([id number]) on 11/09/2024 6:34:00 PM Referred By: REFERRED SELF Confirmed By: Marvin Lovelace
[2024-11-10 06:03] LABS: Anion Gap 9.0 (3-11); Blood Urea Nitrogen 74.0 mg/dl (6-23); Calcium 9.7 mg/dl (8.6-10.3); Carbon Dioxide 45.0 mmol/L (21-32); Chloride 86.0 mmol/L (98-107); Creatinine Clr Calc Pharmacy 42.5 ml/min; Glucose 101.0 mg/dl (70-99(Fasting)); Potassium 4.4 mmol/L (3.5-5.1); Sodium 140.0 mmol/L (136-145)
--- NOTE | 2024-11-10 11:17 | Cardiology Progress Note ---
Date of Service November 10, 2024 Assessment & Plan (1) Right-sided congestive heart failure: (2) Pickwickian syndrome: (3) S/P AVR (aortic valve replacement): (4) S/P MVR (mitral valve replacement): (5) Atrial fibrillation: Plan Acute decompensated right heart failure, underlying severe right ventricular dysfunction, pulmonary hypertension, chronic atrial fibrillation/flutter, history of endocarditis and severe aortic valve stenosis for which patient underwent surgical mitral and aortic valve replacements with bioprosthesis. Responding well to diuretics, 5 L of urine output noted in the last 24 hours, negative fluid balance of 4.5 L in last 24 hours. Doubt daily weight is accurate given the variability. Recommendations: 1. Given increase in creatinine and CO2, reduce furosemide dose from 80 mg IV TID to 80 mg x 1 today. Potassium chloride and spironolactone on hold for potassium level of 5 mmol/l on 11/09/24 which is improving 2. Continue Jardiance 10mg qday 3. Lara catheter in place 4. Strict I's and O's 5. Restrict sodium to less than 2,000 mg/day 6. Restrict fluids to less than 2,000 mL/day 7. Continue supplemental oxygen and CPAP therapy at night and when napping during the day. 8. Continue current dose of metoprolol succinate, rate control strategy for the permanent atrial fibrillation. Heart rates acceptable at present. 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 Maintain telemetry 11. Daily labs Patient with difficulty tolerating diuretics at home due in part to poor mobility with knee pain limiting his ability to get to bathroom and incontinence. Outpatient treatment with a GPP-1 agonist is a consideration to help with weight loss , take pressure off of his knees. Armin Young DO Admission and Anticipated Discharge Date Admission Date: November 04, 2024 Subjective Patient seen in cardiology follow up. Patient continues to feel subjective improvement from a stanpoint of lower extremity edema and shortness of breath. Telemetry reveals AF with ventricular rate of 100 bpm at rest. Review of Systems Review of Systems: Complete Review of Systems is as stated above, negative, or noncontributory Physical Exam Constitutional: WD/WN, vitals as above Eyes: PERRL, conjunctivae normal, anicteric sclerae Respiratory: Auscultation: + diminished lung sounds (decreased BS bilaterally at the bases ) Cardiovascular: Rate/Rhythm: + irregularly irregular Heart Sounds: + murmur (1/6 SM ) Extremities: + edema (1-2 + LE edema, chronic venous stasis changes ) Gastrointestinal (Abdomen): Percussion/Palpation: + ascites; abdomen nontender Neurologic: PERRL, EOMI, accommodation nl, no face palsy, no dysarthria Results & Data Vital Signs (Past 12 Hours) Vital Signs Temp Pulse Pulse Resp BP Pulse Ox O2 Del Method 11/10/24 07:57 80 11/10/24 07:13 36.4 C L 80 17 121/65 91 Nasal Cannula 11/10/24 02:36 36.7 C 99 H 20 107/68 90 Nasal Cannula O2 Flow Rate 11/10/24 07:57 11/10/24 07:13 4 11/10/24 02:36 4.0 Coding [place] [address] SUB INP/OBS CARE 3/50MIN Patient Type Established History Problem Focused Exam Detailed Medical Decision Making Moderate Complexity Diagnoses Right-sided congestive heart failure I50.810 Pickwickian syndrome E66.2 S/P AVR (aortic valve replacement) Z95.2 S/P MVR (mitral valve replacement) Z95.2 Permanent atrial fibrillation I48.21 Atrial fibrillation type: permanent (5) Atrial fibrillation Atrial fibrillation type: permanent Qualified Code(s): I48.21 - Permanent atrial fibrillation
[2024-11-10] MEDS: FUROSEMIDE 40 MG/4 ML VIAL IV ONE (12:10)
--- NOTE | 2024-11-10 14:43 | Hospitalist Progress Note ---
Date of Service November 10, 2024 Assessment & Plan (1) Acute on chronic right-sided heart failure: Plan: Presented with increasing shortness of breath and increasing swelling of the legs and abdomen for the last few weeks Has been noncompliant with diuretics at home Chest x-ray evidence of acute CHF with elevated BNP Echo shows EF of 65-70%; RV systolic function mildly reduced During the hospitalization, patient was diuresed with Lasix 80 mg 3 times daily with improvement in lower extremity edema and swelling. Spironolactone and Jardiance also added. Plan to switch over to p.o. diuretic at the time of discharge. Left knee pain Possible gout Patient reports increasing pain, swelling of left knee from 11/06/2024; X-ray shows severe left knee osteoarthritis with small to moderate left knee joint effusion Empirically started on prednisone 40 mg; reports improvement.He also reported previous history of pain, swelling on his left toe which seems consistent with a gout flare in the past. Uric acid of 13.5 mg/DL; will need addition of allopurinol after acute flare has improved. (2) Chronic atrial fibrillation: Plan: History of chronic atrial fibrillation Has been on beta-lisa and the rate seems to be reasonably controlled on eliquis, continue. Patient reports that he has been taking Eliquis 5 mg once a day given his history of nosebleeds. I discussed with patient that the dosing is not adequate for stroke prophylaxis, and he is at risk for stroke but patient reports stated that he prefers to be on once a day Eliquis. Minimally increased troponin Demand ischemia Troponin mildly elevated with no delta gap Monitor for chest pain (3) H/O heart valve replacement with bioprosthetic valve: Plan: History of endocarditis and also bioprosthetic valve replacement of aortic and mitral valve Denies any chest pain and/or palpitation (4) Chronic venous stasis: Plan: wound care evaluated patient on 11/05/2024. (5) Sleep apnea: (6) Cirrhosis of liver: Plan: Moderate amount of ascites seen in Abd usg will consider paracentesis if abdomen continues to be distended after diuresis (7) Intracranial septic embolism: (8) Generalized weakness: Plan: Complaining of decreased mobility due to weakness continue PT/OT Plan DVT prophylaxis Has been on Eliquis CODE STATUS DNR/DNI Time spent evaluating patient, direct bedside care, chart review, placing orders, interpretation of diagnostic studies, discussion with consultants, patient, and family members, as well as other required patient management activities is 50 minutes Please note the above document was generated using voice recognition software. It may contain grammatical, syntax or spelling errors. Any formal questions or concerns about the content, text or information contained within the body of this dictation should be directly addressed to the provider for clarification Admission and Anticipated Discharge Date Admission Date: November 04, 2024 Subjective Patient seen and examined at bedside. He continues to report feeling better; significant improvement in lower extremity edema. Denies being short of breath. No significant events overnight Review of Systems Review of Systems: All systems reviewed & are unremarkable except as noted in Subjective Physical Exam Physical Exam: Constitutional: Awake alert oriented x 3; not in distress. Neck: trachea midline, no thyromegaly normal visual inspection Respiratory: Bilateral basal crackles present. Cardiovascular: RRR, no murmur, no edema Vessels: no JVD or carotid bruit Chest: normal inspection of chest Abdomen: normal bowel sounds, soft, nontender, no hepatosplenomegaly. Pitting edema in lower abdomen Musculoskeletal: Bilateral pitting edema 1+ present; Chronic skin changes. Tenderness, slight increased warmth on left knee; improved Neurologic: PERRL, EOMI, accommodation nl, no face palsy, no dysarthria CN's II- XI intact bilaterally and moves all extremities Results & Data Results & Data Vital Signs (Past 12 Hours) Vital Signs Temp Pulse Pulse Resp BP Pulse Ox O2 Del Method 11/10/24 08:45 Nasal Cannula 11/10/24 07:57 80 11/10/24 07:13 36.4 C L 80 17 121/65 91 Nasal Cannula O2 Flow Rate 11/10/24 08:45 4 11/10/24 07:57 11/10/24 07:13 4
[2024-11-11 06:18] LABS: Blood Urea Nitrogen 77 mg/dl (6-23); Calcium 9.3 mg/dl (8.6-10.3); Carbon Dioxide > 45 mmol/L (21-32); Chloride 87 mmol/L (98-107); Creatinine Clr Calc Pharmacy 41.4 ml/min; Glucose 111 mg/dl (70-99(Fasting)); Potassium 4.2 mmol/L (3.5-5.1); Sodium 140 mmol/L (136-145)
--- NOTE | 2024-11-11 11:23 | Cardiology Progress Note ---
Date of Service November 11, 2024 Assessment & Plan (1) Right-sided congestive heart failure: (2) Pickwickian syndrome: (3) S/P AVR (aortic valve replacement): (4) S/P MVR (mitral valve replacement): (5) Atrial fibrillation: Plan Acute decompensated right heart failure, underlying severe right ventricular dysfunction, pulmonary hypertension, chronic atrial fibrillation/flutter, history of endocarditis and severe aortic valve stenosis for which patient underwent surgical mitral and aortic valve replacements with bioprosthesis. Responding well to diuretics. Recommendations: 1. Given increase in creatinine and CO2, furosemide dose decreased to 80 mg IV x 1 for 11/10 and 11/11. 2. Continue Jardiance 10mg daily 3. Lara catheter in place 4. Hold spironolactone as creatinine had trended above baseline. Anticipate need to accept some degree of azotemia to keep volume status satisfactory. 5. Now on prednisone for gout flair. 6. Continue eliquis for stroke prophylaxis. Patient with difficulty tolerating diuretics at home due in part to poor mobility with knee pain limiting his ability to get to bathroom and incontinence. Outpatient treatment with a GPP-1 agonist is a consideration to help with weight loss , take pressure off of his knees. Armin Young, DO Admission and Anticipated Discharge Date Admission Date: November 04, 2024 Subjective Patient seen in cardiology follow up. His spouse, Apoorva, accompanies him at the bedside today. Notes right knee pain and is now being treated for gout flair. Shortness of breath and leg edema markedly improved compared to initial presentation. Telemetry reveals atrial fibrillation with rate in the 80s at rest. Physical Exam Constitutional: WD/WN, vitals as above Eyes: PERRL, conjunctivae normal, anicteric sclerae Respiratory: Auscultation: + diminished lung sounds (decreased BS bilaterally at the bases ) Cardiovascular: Rate/Rhythm: + irregularly irregular Heart Sounds: + murmur (1/6 SM ) Extremities: + edema (1-2 + LE edema, chronic venous stasis changes ) Gastrointestinal (Abdomen): Percussion/Palpation: + ascites; abdomen nontender Neurologic: PERRL, EOMI, accommodation nl, no face palsy, no dysarthria Results & Data Vital Signs (Past 12 Hours) Vital Signs Temp Pulse Resp BP Pulse Ox O2 Del Method O2 Flow Rate 11/11/24 07:30 Nasal Cannula 2 11/11/24 07:12 36.5 C 66 18 111/57 L 99 Nasal Cannula 4 11/11/24 02:37 36.8 C 68 18 121/70 98 Nasal Cannula 4.0 Laboratory Results Comprehensive Metabolic Panel 11/11/24 Range/Units 05:01 Sodium 140 (136-145) mmol/L Potassium 4.2 (3.5-5.1) mmol/L Chloride 87 L (98-107) mmol/L Carbon Dioxide > 45 H* (21-32) mmol/L BUN 77 H (6-23) mg/dl Creatinine 2.08 H (0.6-1.4) mg/dl Glucose 111 H (70-99(Fasting)) mg/dl Calcium 9.3 (8.6-10.3) mg/dl Intake and Output 11/10/24 11/11/24 11/11/24 22:59 06:59 14:59 Intake Total 100 / 710 150 / 710 Output Total 1450 / 3450 1100 / 3450 Balance -1350 / -2740 -950 / -2740 Intake: Oral 100 / 710 150 / 710 Output: Urine Amount (Catheter) 1450 / 3450 1100 / 3450 Coude 1450 / 3450 1100 / 3450 Other: Weight 104 kg Weight Measurement Method [facility] Coding Level of Care Code 52498 SUB INP/OBS CARE 2/35MIN Diagnoses Right-sided congestive heart failure I50.810 Pickwickian syndrome E66.2 S/P AVR (aortic valve replacement) Z95.2 S/P MVR (mitral valve replacement) Z95.2 Permanent atrial fibrillation I48.21 Atrial fibrillation type: permanent (5) Atrial fibrillation Atrial fibrillation type: permanent Qualified Code(s): I48.21 - Permanent atrial fibrillation
[2024-11-11] MEDS: FUROSEMIDE 40 MG/4 ML VIAL IV ONE (11:48)
--- NOTE | 2024-11-11 14:04 | Hospitalist Progress Note ---
Date of Service November 11, 2024 Assessment & Plan (1) Acute on chronic right-sided heart failure: Plan: Presented with increasing shortness of breath and increasing swelling of the legs and abdomen for the last few weeks Has been noncompliant with diuretics at home Chest x-ray evidence of acute CHF with elevated BNP Echo shows EF of 65-70%; RV systolic function mildly reduced During the hospitalization, patient was diuresed with Lasix 80 mg 3 times daily with improvement in lower extremity edema and swelling. Spironolactone and Jardiance also added. Plan to switch over to p.o. diuretic at the time of discharge. Left knee pain-Resolved RIght knee pain- Acute Gout Flare Patient reports increasing pain, swelling of left knee from 11/06/2024; X-ray shows severe left knee osteoarthritis with small to moderate left knee joint effusion Empirically started on prednisone 40 mg; had improvement in left knee. Increasing pain/erythema on right knee on 11/11/2024; continue with prednisone 40 mg for now. Will obtain x-ray of the right knee. Uric acid level of 13.5 Mg per DL; will need to be started on allopurinol after gout flare is resolved with PCP. (2) Chronic atrial fibrillation: Plan: History of chronic atrial fibrillation Has been on beta-lisa and the rate seems to be reasonably controlled on eliquis, continue. Patient reports that he has been taking Eliquis 5 mg once a day given his history of nosebleeds. I discussed with patient that the dosing is not adequate for stroke prophylaxis, and he is at risk for stroke but patient reports stated that he prefers to be on once a day Eliquis. Minimally increased troponin Demand ischemia Troponin mildly elevated with no delta gap Monitor for chest pain (3) H/O heart valve replacement with bioprosthetic valve: Plan: History of endocarditis and also bioprosthetic valve replacement of aortic and mitral valve Denies any chest pain and/or palpitation (4) Chronic venous stasis: Plan: wound care evaluated patient on 11/05/2024. (5) Sleep apnea: (6) Cirrhosis of liver: Plan: Moderate amount of ascites seen in Abd usg significant improvement in abdominal distension with diuresis (7) Intracranial septic embolism: (8) Generalized weakness: Plan: Complaining of decreased mobility due to weakness continue PT/OT Plan DVT prophylaxis Has been on Eliquis CODE STATUS DNR/DNI Disposition-Possible DC to [facility] in next few days if patient continues to show signs of improvement Time spent evaluating patient, direct bedside care, chart review, placing orders, interpretation of diagnostic studies, discussion with consultants, patient, and family members, as well as other required patient management activities is 50 minutes Please note the above document was generated using voice recognition software. It may contain grammatical, syntax or spelling errors. Any formal questions or concerns about the content, text or information contained within the body of this dictation should be directly addressed to the provider for clarification Admission and Anticipated Discharge Date Admission Date: November 04, 2024 Subjective Patient seen and examined at bedside. He reports that he could not get much sleep due to noise. He reports pain in the right knee. Review of Systems Review of Systems: All systems reviewed & are unremarkable except as noted in Subjective Physical Exam Physical Exam: Constitutional: Awake alert oriented x 3; not in distress. Neck: trachea midline, no thyromegaly normal visual inspection Respiratory: Bilateral basal crackles present. Cardiovascular: RRR, no murmur, no edema Vessels: no JVD or carotid bruit Chest: normal inspection of chest Abdomen: normal bowel sounds, soft, nontender, no hepatosplenomegaly. Musculoskeletal: Bilateral pitting edema 1+ present; Chronic skin changes. left knee swelling/erythema resolved. right knee tender with erythema Neurologic: PERRL, EOMI, accommodation nl, no face palsy, no dysarthria CN's II- XI intact bilaterally and moves all extremities Results & Data Results & Data Vital Signs (Past 12 Hours) Vital Signs Temp Pulse Resp BP BP Pulse Ox O2 Del Method 11/11/24 11:45 36.4 C L 78 18 104/63 97 Nasal Cannula 11/11/24 07:30 Nasal Cannula 11/11/24 07:12 36.5 C 66 18 111/57 L 99 Nasal Cannula 11/11/24 02:37 36.8 C 68 18 121/70 98 Nasal Cannula O2 Flow Rate 11/11/24 11:45 3 11/11/24 07:30 2 11/11/24 07:12 4 11/11/24 02:37 4.0
--- NOTE | 2024-11-11 14:45 | XRay Report ---
XR knee RT 1 or 2V routine CLINICAL HISTORY: Severe right knee pain. COMPARISON: Right knee radiographs June 29, 2020. FINDINGS: There is mild medial translation of the femur with respect to the tibia. There is no joint effusion. There are no fractures. Severe medial compartment joint space narrowing is noted with bone -on-bone appearance. There is associated sclerosis and osteophytosis. There is also moderate joint sp dean narrowing with extensive osteophytosis of the patellofemoral articulation. IMPRESSION: 1. No fractures within the right knee. No joint effusion. 2. Severe tricompartmental osteoarthritis of the right knee, most pronounced within the medial compar tment. ACT 112: Negative or not required by law. Electronically signed by: Taz Grant M.D. 11/11/2024 2:44 PM
[2024-11-11] MEDS: ACETAMINOPHEN 1,000 MG/100 ML VIAL IV STA (20:59)
[2024-11-12 06:08] LABS: Anion Gap 6.0 (3-11); Blood Urea Nitrogen 80.0 mg/dl (6-23); Calcium 9.7 mg/dl (8.6-10.3); Carbon Dioxide 44.0 mmol/L (21-32); Chloride 90.0 mmol/L (98-107); Creatinine Clr Calc Pharmacy 45.8 ml/min; Glucose 115.0 mg/dl (70-99(Fasting)); Potassium 3.9 mmol/L (3.5-5.1); Sodium 140.0 mmol/L (136-145)
--- NOTE | 2024-11-12 12:15 | History & Physical Report ---
Date of Service November 12, 2024 Assessment & Plan (1) Right-sided congestive heart failure: (2) Pickwickian syndrome: (3) S/P AVR (aortic valve replacement): (4) S/P MVR (mitral valve replacement): (5) Atrial fibrillation: Plan Acute decompensated right heart failure, underlying severe right ventricular dysfunction, pulmonary hypertension, chronic atrial fibrillation/flutter, history of endocarditis and severe aortic valve stenosis for which patient underwent surgical mitral and aortic valve replacements with bioprosthesis. Responded well to diuretics. Recommendations: -Continue Eliquis 2.5 mg twice daily, I would speculate that this dose had previously been chosen due to the patient's renal insufficiency and past bleeding problems as based on his age and weight, 5 mg twice daily would be the appropriate dose for him. -Discharged on torsemide 40 mg daily, spironolactone 25 mg daily, Jardiance 10 mg daily, metoprolol succinate 100 mg twice daily, aspirin 81 mg daily. -Would ideally like for him to be on a higher dose of loop diuretic, but not feasible with regards to his limited mobility and incontinence which was previously because patient did not take any diuretic or take very intermittently. Patient with difficulty tolerating diuretics at home due in part to poor mobility with knee pain limiting his ability to get to bathroom and incontinence. Outpatient treatment with a GPP-1 agonist is a consideration to help with weight loss , take pressure off of his knees. Armin Young DO Admission and Anticipated Discharge Date Admission Date: November 04, 2024 History of Present Illness Primary Care Provider: Yuriy Dempsey MD Patient seen in cardiology follow up. Knee pain improved. Denies chest pain or shortness of breath. Allergies Allergy/AdvReac Type Severity Reaction Status Date / Time amoxicillin Allergy Intermediate Rash Verified 01/22/24 06:20 cyclobenzaprine AdvReac Intermediate Rash Verified 01/22/24 06:20 Home Medications Medication Instructions Recorded Confirmed Type apixaban 5 mg tablet 5 mg PO QAM 12/05/23 11/04/24 History aspirin 81 mg capsule 81 mg PO QAM 12/05/23 11/04/24 History cholecalciferol (vitamin D3) 125 125 mcg PO DAILY 12/05/23 11/04/24 History mcg (5,000 unit) tablet (Vitamin D3) coenzyme Q10 100 mg capsule 100 mg PO DAILY 12/05/23 11/04/24 History (CoQ-10) magnesium oxide 400 mg (241.3 mg 400 mg PO DAILY #30 tabs 12/12/23 11/04/24 Rx magnesium) tablet metoprolol succinate 25 mg 100 mg PO BID 01/01/24 11/04/24 History tablet,extended release 24 hr spironolactone 25 mg tablet 25 mg PO DAILY 11/04/24 11/04/24 History empagliflozin 10 mg tablet 10 mg PO DAILY #30 tabs 11/12/24 Rx (Jardiance) prednisone 20 mg tablet See Taper PO DAILY #30 tabs 11/12/24 Rx torsemide 20 mg tablet 40 mg (2 x 20 mg) PO QAM #30 tabs 11/12/24 11/04/24 Rx Past Med/Surg History Problem List (Updated 11/09/24 @ 11:45 by Armin Young DO) Atrial fibrillation S/P MVR (mitral valve replacement) S/P AVR (aortic valve replacement) Pickwickian syndrome Right-sided congestive heart failure Elevated troponin (Acute) Anemia (Acute) Shortness of breath (Acute) CHF (congestive heart failure) (Acute) Acute right-sided heart failure Sleep apnea History of endocarditis USHA (acute kidney injury) Scrotal erythema Chronic venous stasis Chronic atrial fibrillation Acute on chronic right-sided heart failure Prerenal azotemia Hypokalemia Hypokalemia Abnormal breath sounds Cerebellar ataxia Polyuria Bacteremia due to Enterococcus H/O heart valve replacement with bioprosthetic valve Gait instability RLS (restless legs syndrome) Excessive daytime sleepiness Screening PSA (prostate specific antigen) Nocturia Bacteremia due to Staphylococcus aureus (Acute 02/22/20) Cirrhosis of liver (Acute 02/28/20) Hematochezia (Acute 02/24/20) History of aortic valve replacement (Acute 03/07/20) History of mitral valve replacement (Acute 03/07/20) Hypervolemia (Acute 03/01/20) Injury of kidney (Acute 03/01/20) Intracranial septic embolism (Acute 02/22/20) Sleep apnea in adult Malnutrition DVT prophylaxis Heart failure Mitral regurgitation Severe aortic stenosis Endocarditis Acute hypokalemia (Acute) Alcohol use Generalized weakness Heart murmur Hypokalemia Basal cell carcinoma Screening PSA (prostate specific antigen) Central positional vertigo Osteoarthritis of knee Medical History Cerebellar ataxia (2020) Bilateral cataracts BPH (benign prostatic hyperplasia) Polyuria History of restless legs syndrome Gait instability since stroke, has a balance problem, uses a cane Hx of vertigo Chronic atrial fibrillation no caridoversion, follows with Hannah (12/12/23), takes eliquis Hx of basal cell carcinoma Hx of bacteremia (2019) USHA (acute kidney injury) (12/2023) recently hospitalized at [facility] "to drain fluid from my body" and was given IV lasix, which pt. 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, unsure of cause Cirrhosis of liver Dyspnea on exertion History of asthma Acute on chronic right-sided heart failure History of embolic stroke (2020) loss of balance, MRI showed new emboli in brain, currently has balance problems, no longer follows with neuro - takes eliquis Acute hypoxemic respiratory failure (03/01/20) hx Abnormal LFTs Benign essential hypertension Obstructive sleep apnea cpap with 2L oxygen - compliant Surgical History Hx of cataract extraction left Hx of basal cell carcinoma excision Hx of mitral valve replacement (02/2020) PSH- follows with Hannah at [facility] (12/12/23) Hx of aortic valve replacement (02/2020) PSH History of vasectomy Family History Father Heart disease Hypertension, Onset Age: 50 Kidney disease, Onset Age: 30 Kidney stones as young man Myocardial infarction Passed in 2006 with heart attack age 78 Brother Asthma Prostate cancer, Onset Age: 61 Treated Radiation and hormonal. 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 [employer] Required: No Beliefs That Will Affect Care: None marital status: Current Living Situation: Spouse current occupational status: employed 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 How many Children do You have: 0 How many Children do You have Comment: 1 step child Other Information That Helps Us Care for You: No Feels Safe at Home: Yes Safety Concerns: Feels Safe At This Time Childhood Exposure to Second-Hand Smoke: No Seatbelt Use: always Sunscreen Use: Yes Assistive Devices: Cane, Oxygen - Continuous, Walker and Wheelchair Physical Exam Constitutional: WD/WN, vitals as above Eyes: PERRL, conjunctivae normal, anicteric sclerae Respiratory: Auscultation: + diminished lung sounds (decreased BS bilaterally at the bases ) Cardiovascular: Rate/Rhythm: + irregularly irregular Heart Sounds: + murmur (1/6 SM ) Extremities: + edema (1-2 + LE edema, chronic venous stasis changes ) Gastrointestinal (Abdomen): Percussion/Palpation: + ascites; abdomen nontender Neurologic: PERRL, EOMI, accommodation nl, no face palsy, no dysarthria Results & Data Results & Data Vital Signs (Past 12 Hours) Vital Signs Temp Pulse Pulse Resp BP BP Pulse Ox 11/12/24 11:06 11/12/24 10:00 67 11/12/24 07:52 36.4 C L 67 17 112/65 97 11/12/24 04:20 36.4 C L 67 18 114/68 96 O2 Del Method O2 Flow Rate 11/12/24 11:06 Nasal Cannula, CPAP 11/12/24 10:00 11/12/24 07:52 Nasal Cannula 2 11/12/24 04:20 CPAP Laboratory Results Comprehensive Metabolic Panel 11/12/24 Range/Units 05:19 Sodium 140 (136-145) mmol/L Potassium 3.9 (3.5-5.1) mmol/L Chloride 90 L (98-107) mmol/L Carbon Dioxide 44 H* (21-32) mmol/L BUN 80 H (6-23) mg/dl Creatinine 1.88 H (0.6-1.4) mg/dl Glucose 115 H (70-99(Fasting)) mg/dl Calcium 9.7 (8.6-10.3) mg/dl Intake and Output 11/11/24 11/12/24 11/12/24 22:59 06:59 14:59 Intake Total 100 / 940 Output Total 1200 / 4500 800 / 4500 Balance -1100 / -3560 -800 / -3560 Intake: IV 100 / 100 Acetaminophen 1,000 mg In 100 100 / 100 ml @ 400 mls/hr IV NOW STA Rx#: [id number] Output: Urine Amount (Catheter) 1200 / 4500 800 / 4500 Coude 1200 / 4500 800 / 4500 Other: Weight 97.3 kg Weight Measurement Method Standing Scale Patient Weight 11/13/24 06:59 Weight 97.3 kg Code Status & VTE Plan VTE Prophylaxis Plan VTE Prophylaxis will be ordered: Yes PG Care Time/CCT Total # of Minutes Spent Total Time Spent with Patient: Total time spent is greater than 50% in coordination of care (as documented) at patient's floor/unit and/or counseling patient: Coding Level of Care Code 89124 INT INP/OBS CARE 2/55MIN Diagnoses Right-sided congestive heart failure I50.810 Pickwickian syndrome E66.2 S/P AVR (aortic valve replacement) Z95.2 S/P MVR (mitral valve replacement) Z95.2 Permanent atrial fibrillation I48.21 Atrial fibrillation type: permanent (5) Atrial fibrillation Atrial fibrillation type: permanent Qualified Code(s): I48.21 - Permanent atrial fibrillation
[2024-11-12 12:19] VITALS: BP 112/67; PULSE 70; RESP 18; TEMP 98.1; O2SAT 96
--- NOTE | 2024-11-12 15:01 | Discharge Summary ---
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 He has been taking his torsemide the way he is supposed to be and also complaining of increasing shortness of breath at rest and with minimal ambulation for the last few weeks too. He denie s any chest pain or any palpitation. No nausea or vomiting and no fever and no chills. He has chronic venous stasis on both sides. He was noted to have CHF with increase BNP in the emergency room and received 80 mg of IV Lasix and was admitted to telemetry unit for continuation of care. Admission Exam Per Admitting Provider Physical Exam: Lying in bed with minimal distress due to shortness of breath Constitutional: well developed, well nourished, + ill appearing and + obese Eyes: PERRL, conjunctivae normal, anicteric sclerae ENMT: external ear and nose normal, oropharynx normal Neck: trachea midline, no thyromegaly Respiratory: + respiratory distress ( mild to moderat e respiratory distress at rest) Cardiovascular: Rate/Rhythm: regular rate and regular rhythm; not tachycardic Heart Sounds: normal S1, normal S2 and + murmur Extremities: + edema ( 1-2+ edema bilaterally with chronic skin changes) Gastrointestinal (Abdomen): Inspection/Auscultation: + abdomen distended and normal bowel sounds Percussion/Palpation: abdomen soft; abdomen nontender Musculoskeletal: Osteoarthritis involving multiple joints but no acute arthritis Skin: Bilateral venous stasis involving the legs Neurologic: normal touch/pain/proprioception and moves all extremities; no focal motor deficits generally weak Lymphatic: no cervical or axillary lymphadenopathy Principal Diagnosis (1) Acute on chronic right-sided heart failure: (2) Acute Gout Flare Discharge Exam Constitutional: Awake alert oriented x 3; not in distress. Neck: trachea midline, no thyromegaly normal visual inspection Respiratory: Bilateral basal crackles present. Cardiovascular: RRR, no murmur, no edema Vessels: no JVD or carotid bruit Chest: normal inspection of chest Abdomen: normal bowel sounds, soft, nontender, no hepatosplenomegaly. Musculoskeletal: Bilateral pitting edema 1+ present; Chronic skin changes. left knee swelling/erythema resolved. right knee tender with erythema Neurologic: PERRL, EOMI, accommodation nl, no face palsy, no dysarthria CN's II- XI intact bilaterally and moves all extremities Discharge Data Allergies Allergy/AdvReac Type Severity Reaction Status Date / Time amoxicillin Allergy Intermediate Rash Verified 01/22/24 06:20 cyclobenzaprine AdvReac Intermediate Rash Verified 01/22/24 06:20 Consultations 11/04/24 11:24 ED Decision to Admit Stat 11/04/24 12:27 Consult Cardiology Routine Ordered Studies 11/04/24 13:33 US abdomen ltd ascites Routine Hospital Course (1) Acute on chronic right-sided heart failure: Presented with increasing shortness of breath and increasing swelling of the legs and abdomen for the last few weeks Has been noncompliant with diuretics at home Chest x-ray evidence of acute CHF with elevated BNP Echo shows EF of 65-70%; RV systolic function mildly reduced During the hospitalization, patient was diuresed with Lasix 80 mg 3 times daily with improvement in lower extremity edema and swelling. Spironolactone and Jardiance also added. Patient was placed on torsemide 40 mg at the time of the discharge. He was discharged to acute rehab. At the time of the discharge; discussion was done with patient regarding trial of void. However, patient did not want to remove the Lara citing that his knee pain has prevented him his mobility and he wont be able to go to the bathroom to urinate. I discussed doing trial of void at rehab. I also discussed the risks associated with catheter associated UTI; he verbalized understanding. Left knee pain-Resolved RIght knee pain- Acute Gout Flare Patient reports increasing pain, swelling of left knee from 11/06/2024; X-ray shows severe left knee osteoarthritis with small to moderate left knee joint effusion Empirically started on prednisone 40 mg; had improvement in left knee. Janet sing pain/erythema on right knee on 11/11/2024; prednisone was continued which resulted in improvement in the knee pain. Patient was discharged on a tapering dose of steroid. His uric acid was elevate d at 13.5; I discussed with him to follow-up with PCP and consider starting him on allopurinol to prevent further flares; he is agreeable. (2) Chronic atrial fibrillation: History of chronic atrial fibrillation Has been on beta-lisa and the rate seems to be reasonably controlled on eliquis, continue. Patient reports that he has been taking Eliquis 5 mg once a day given his history of nosebleeds. I discussed with patient that the dosing is not adequate for stroke prophylaxis, and he is at risk for stroke but patient reports stated that he prefers to be on once a day Eliquis. Please note the above document was generated using voice recognition software. It may contain grammatical, syntax or spelling errors. Any formal questions or concerns about the content, text or information contained within the body of this dictation should be directly addressed to the provider for clarification (3) H/O heart valve replacement with bioprosthetic valve: (4) Chronic venous stasis: (5) Sleep apnea: (6) Cirrhosis of liver: (7) Intracranial septic embolism: (8) Generalized weakness: Total Time Total Time Spent Total Time Spent (In Minutes): 45 Total Time Includes: Examination of the Patient, Discharge Planning, Medication Reconciliation, Communication With Other Providers and Other Discharge Plan Discharge Items Patient Disposition: Transfer Inpatient Rehab Fac Reason For Visit: CHF Discharge Diagnosis: Acute on chronic right-sided heart failure: Condition on Discharge: Fair Activity: Resume your previous activity Non-emergency contact: Primary Care Provider Call non-emergency contact if: you have any medication questions and your symptoms worsen Follow-up/Referrals: Yuriy Dempsey MD [Primary Care Provider] - 11/16/24 9:00 am (Date & Time 11/16/2024 9:00 AM Provider: Yuriy Dempsey MD [facility] ) Diet: Regular Addtl Attending Provider Instructions: You were admitted to the hospital with heart failure. You are treated with diuretics during the hospitalization leading to improvement in the leg swelling. Following medication changes has been made; Start taking torsemide 40 mg once a day Start taking Jardiance 10 mg once a day You are prescribed prednisone for the gout flare. Take it as follows; Take 40 mg daily for 4 days, then Take 20 mg for 4 days After the gout flare is over; you will need to be started on allopurinol to reduce the future risks of gout attacks. Please also discuss with your primary care doctor regarding GLP-1 agonist for weight loss/heart failure. As per your request, the Lara catheter has not been removed. You may do trial of void at the rehab. If you decide to use Lara catheter long-term; it need to be exchanged every 4 weeks. Pending Studies at Discharge: No Stand-Alone Forms: My [facility] Skilled Items Patient informed of condition?: Yes DNR: Yes Discharge Level of Care: Acute rehab Communicable Disease: No Discharge Prognosis: Stable Lines: None Urinary Catheter: Yes (Please change every 4 weeks) Medications and DC Order Prescriptions: New prednisone 20 mg Tablet See Taper PO DAILY Qty: 30 0RF Taper: Taper, Blank 40 mg DAILY for 4 Days 20 mg DAILY for 4 Days Jardiance 10 mg Tablet 10 mg PO DAILY Qty: 30 0RF Continued coenzyme Q10 [CoQ-10] 100 mg Capsule 100 mg PO DAILY cholecalciferol (vitamin D3) [Vitamin D3] 125 mcg (5,000 unit) Tablet 125 mcg PO DAILY apixaban 5 mg Tablet 5 mg PO QAM Rx Instructions: per pt he only takes one tab daily aspirin 81 mg Capsule 81 mg PO QAM magnesium oxide 400 mg (241.3 mg magnesium) Tablet 400 mg PO DAILY Qty: 30 1RF metoprolol succinate 25 mg tablet extended release 24 hr 100 mg PO BID spironolactone 25 mg tablet 25 mg PO DAILY Changed torsemide 20 mg Tablet 40 mg PO QAM Qty: 30 1RF Discharge Orders: Discharge Order (Routine); Ordered 11/12/24 Ordered By: Dani Reagan/Other Patient Handouts: Heart Failure Admission Data Admit Date/Time: 11/04/24 12:13 Attending Provider: Dani Shukla Admit Provider: Gael Frost Primary Care Provider: Yuriy Dempsey Other Providers: Deepika Askew; Armin Young; Silvestre Alas; Haja Segundo; Sebastian Singh; John Wallace; Nataly Sweeney; Chelsey Melgar; Sona Castillo; Celia Andrea; Deepika Qiu; Noe Lord; Umair Rojas; April Guidry; Merry Cabello; Elda Duke; Alber Thakkar; Samson Melo; Danielle Steiner; Cookie Boswell; Marvin Rowley; Gael Frost; [facility]
[2024-11-13] MEDS ORDERED: APIXABAN 2.5 MG TAB PO SCH (09:00)
--- NOTE | 2024-11-13 13:24 | Coding Query ---
CONGESTIVE HEART FAILURE To Promote full compliance with coding requirements relating to patient care, physician participation is requested in all cases of breakdown man uncertainty. Please assist us with the following questions. A diagnosis of Congestive Heart Failure is documented in the patient's medical record. To accurately code this diagnosis and to compare patient severity, we ask that you specify the type of heart failure by placing an X within the parenthesis (x). SYSTOLIC HEART FAILURE ( ) Acute ( ) Chronic ( ) Acute on Chronic ( ) Rheumatic ( ) Unknown DIASTOLIC HEART FAILURE ( ) Acute ( ) Chronic (X ) Acute on Chronic ( ) Rheumatic ( ) Unknown COMBINED SYSTOLIC AND DIASTOLIC HEART FAILURE ( ) Acute ( ) Chronic ( ) Acute on Chronic ( ) Rheumatic ( ) Unknown Was the CHF Present On Admission? Please check the appropriate box: (X ) Present on Admission ( ) Not Present On Admission ( ) Clinically undetermined Thank you Monica ABDI
== END 2024-11-12 14:05 | DRG 291 ==
LOC: ED 10:02 → 4W 12:13 → SUATTDRO 12:13 → 4W 13:21

== ENCOUNTER 2024-11-28 18:12 | Inpatient (IN) ==
[2024-11-28 19:00] LABS: Hematocrit (blood only) 37.6 % (42.0-52.0); Hemoglobin 12.0 g/dl (14.0-18.0); Immature Granulocytes # (auto) 0.16 K/uL (0.01-0.20); Immature Granulocytes % (auto) 0.9 %; Mean Corpuscular Hemoglobin 28.9 pg (25.0-34.0); Mean Corpuscular Volume 90.6 fL (80.0-100.0); Platelet Count 123 K/uL (130-400); RDW Standard Deviation 54.1 fL (36.4-46.3); Red Blood Count 4.15 M/uL (4.70-6.10); White Blood Count 17.80 K/ul (4.8-10.8)
[2024-11-28 19:15] LABS: Alanine Aminotransferase 17.0 U/L (7-52); Alkaline Phosphatase 112.0 U/L (34-104); Anion Gap 11.0 (3-11); Bilirubin,Total 1.6 mg/dl (0.2-1.0); Blood Urea Nitrogen 62.0 mg/dl (6-23); Calcium 9.2 mg/dl (8.6-10.3); Carbon Dioxide 32.0 mmol/L (21-32); Chloride 89.0 mmol/L (98-107); Creatinine Clr Calc Pharmacy 39.7 ml/min; Glucose 107.0 mg/dl (70-99(Fasting)); Magnesium 2.8 mg/dl (1.7-2.4); Potassium 3.6 mmol/L (3.5-5.1); Sodium 132.0 mmol/L (136-145); Total Protein 7.9 gm/dl (6.0-8.3)
[2024-11-28 19:26] LABS: INR 1.1 (0.9-1.1); Prothrombin Time 11.5 Seconds (9.0-12.0)
[2024-11-28 19:30] LABS: Thyroid Stimulating Hormone 2.123 uIu/ml (0.300-4.500)
--- NOTE | 2024-11-28 19:49 | Emergency Department Note ---
Impression & Plan Acute UTI, Generalized weakness, Elevated troponin, Fever, Renal insufficiency, Leukocytosis ED Provider Note NAME: GUSTAVO DODD AGE: 64 SEX: M : 1960 ARRIVES VIA: Ambulance INFORMANT: Patient ED PROVIDER(S): Zelalem Dos Santos MD CHIEF COMPLAINT: Generalized weakness, confusion, fever PLAN: Disposition: Admit MEDICAL DECISION MAKING: The patient is a pleasant 64-year-old gentleman with past medical history of CHF, atrial fibrillation on Eliquis, cirrhosis of the liver, CKD, restless leg syndrome who presents to the emergency department via EMS and then accompanied by his for evaluation of generalized weakness, fevers and burning with urination that began today in the setting of recently having a urinary catheter discontinued which was placed at this facility for admission for CHF and subsequent diuresis reports due to his arthritis and pain with getting up frequently to urinate the catheter was placed. He denies any urinary retention. He reports mild cough but nothing significant. On evaluation the patient is in no acute distress, febrile to 38.1 with heart in the 100s and vital signs otherwise stable. He appears euvolemic to slightly dry. EKG without overt acute ischemia. CXR negative for acute cardiopulmonary process per my personal preliminary review/interpretation. WBC 17.8 K with neutrophilia but no left shift. H/H improved from prior. Platelets 123K, nonspecific. Creatinine 2, similar to prior range of values in the setting of CKD. Chemistry without metabolic acidosis. Total bilirubin 1.6 and direct bili was 0.5, nonspecific with LFTs otherwise unremarkable. Initial high-sensitivity troponin 141 with repeat 191, nonspecific in the setting of the patient's febrile illness. BNP 1200, similar to prior in setting of history of CHF. Procalcitonin is elevated at 2.7. TSH within normal limits. UA is suspicious for infection with WBCs albeit without bacteria. Respiratory BioFire was negative. CT of the head negative for acute abnormalities. CT abdomen pelvis demonstrates evidence of cirrhosis. Cholelithiasis also noted however no evidence of cholecystitis. No ductal dilatation. Given patient's fever and leukocytosis empiric treatment initiated with IV cefepime and daptomycin. Patient and agree with plan for admission for further management. Case was discussed with Dr. Berg, [facility] hospitalist, who will evaluate the patient for admission. Triage Nursing notes reviewed and agree them. Prior/external medical records reviewed Vital Signs: reviewed Differential diagnosis: Viral syndrome, otitis, pharyngitis, pneumonia, influenza, meningitis, urinary tract infection, sepsis, bacteremia, as well as other pathologies. ER treatment provided: See below. Diagnostics interpreted by me: ECG: Atrial fibrillation, 102 bpm, ST abnormality, no overt ST ovation or depression, QTc 469, QRS 92. Cardiac Monitoring: An order for continuous cardiac monitoring was placed and demonstrated atrial fibrillation, 102 bpm, no ectopy. Laboratory studies: See below Imaging studies: See below Consultation(s): Case was discussed with Dr. Berg, [facility] hospitalist, who will evaluate the patient for admission. HPI: Per MDM. ROS: See above HPI for pertinent positives & negatives. A total of 10 systems reviewed and were otherwise negative. VITALS:See Below PHYSICAL EXAMINATION: GENERAL: Awake, alert, fatigued-appearing, in no distress HENT: Normocephalic, atraumatic. Oropharynx with dry mucous membranes and otherwise unremarkable. EYES: Normal conjunctiva. Sclera non-icteric. EOMI. No nystamgus. PEARRL. NECK: Supple. No nuchal rigidity. FROM. No JVD. RESPIRATORY: Clear to auscultation. CARDIAC: Regular rate, irregular rhythm. Extremities warm and well perfused. Pulses equal. ABDOMEN: Soft, non-distended. No tenderness to palpation. No rebound or guarding. No masses. MUSCULOSKELETAL: Chest examination reveals no tenderness. The back is symmetrical on inspection without obvious abnormality. There is no CVA tenderness to palpation. No joint edema. LOWER EXTREMITIES: Calves are equal size bilaterally and non-tender. No edema. No discoloration. NEURO: Cranial nerves II-XII grossly intact. No overt aphasia. 5/5 strength and SILT x 4 extremities. Intact [id number]. SKIN: No rash or jaundice noted. Zelalem Dos Santos MD Past Med/Surg History Problem List (Updated 11/29/24 @ 06:31 by Zelalem Dos Santos MD) Leukocytosis (Acute) Renal insufficiency (Acute) Fever (Acute) Elevated troponin (Acute) Fever Acute UTI (Acute) Atrial fibrillation S/P MVR (mitral valve replacement) S/P AVR (aortic valve replacement) Pickwickian syndrome Right-sided congestive heart failure Elevated troponin (Acute) Anemia (Acute) Shortness of breath (Acute) CHF (congestive heart failure) (Acute) Acute right-sided heart failure Sleep apnea History of endocarditis USHA (acute kidney injury) Scrotal erythema Chronic venous stasis Chronic atrial fibrillation Acute on chronic right-sided heart failure Prerenal azotemia Hypokalemia Hypokalemia Abnormal breath sounds Cerebellar ataxia Polyuria Bacteremia due to Enterococcus H/O heart valve replacement with bioprosthetic valve Gait instability RLS (restless legs syndrome) Excessive daytime sleepiness Screening PSA (prostate specific antigen) Nocturia Bacteremia due to Staphylococcus aureus (Acute 02/22/20) Cirrhosis of liver (Acute 02/28/20) Hematochezia (Acute 02/24/20) History of aortic valve replacement (Acute 03/07/20) History of mitral valve replacement (Acute 03/07/20) Hypervolemia (Acute 03/01/20) Injury of kidney (Acute 03/01/20) Intracranial septic embolism (Acute 02/22/20) Sleep apnea in adult Malnutrition DVT prophylaxis Heart failure Mitral regurgitation Severe aortic stenosis Endocarditis Acute hypokalemia (Acute) Alcohol use Generalized weakness (Acute) Heart murmur Hypokalemia Basal cell carcinoma Screening PSA (prostate specific antigen) Central positional vertigo Osteoarthritis of knee Medical History Cerebellar ataxia (2020) Bilateral cataracts BPH (benign prostatic hyperplasia) Polyuria History of restless legs syndrome Gait instability since stroke, has a balance problem, uses a cane Hx of vertigo Chronic atrial fibrillation no caridoversion, follows with Hannah (12/12/23), takes eliquis Hx of basal cell carcinoma Hx of bacteremia (2019) USHA (acute kidney injury) (12/2023) recently hospitalized at [facility] "to drain fluid from my body" and was given IV lasix, which pt. 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, unsure of cause Cirrhosis of liver Dyspnea on exertion History of asthma Acute on chronic right-sided heart failure History of embolic stroke (2020) loss of balance, MRI showed new emboli in brain, currently has balance problems, no longer follows with neuro - takes eliquis Acute hypoxemic respiratory failure (03/01/20) hx Abnormal LFTs Benign essential hypertension Obstructive sleep apnea cpap with 2L oxygen - compliant Surgical History Hx of cataract extraction left Hx of basal cell carcinoma excision Hx of mitral valve replacement (02/2020) PSH- follows with Hannah at [facility] (12/12/23) Hx of aortic valve replacement (02/2020) PSH History of vasectomy Family History Father Heart disease Hypertension, Onset Age: 50 Kidney disease, Onset Age: 30 Kidney stones as young man Myocardial infarction Passed in 2005 with heart attack age 78 Brother Asthma Prostate cancer, Onset Age: 61 Treated Radiation and hormonal. Cancer younger brother, skin cancer Mother Cancer Skin cancer Brother Cancer skin cancer Denies family history of Ovarian cancer Diabetes Breast cancer Lung cancer Colorectal cancer Stroke Social History Smoking Status: Never smoker Tobacco Type: Cigarettes Second Hand Exposure: No; Do You Dip or Chew Tobacco: No; Hx Alcohol Use: No Hx Substance Use: No Preferred Language: [place] Communication Ability: Effective Communication Ability Comment: [facility] Hearing Ability: Hard of Hearing College And Career Counselor Required: No Beliefs That Will Affect Care: None marital status: Current Living Situation: Spouse current occupational status: employed 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 How many Children do You have: 0 How many Children do You have Comment: 1 step child Other Information That Helps Us Care for You: No Feels Safe at Home: Yes Safety Concerns: Feels Safe At This Time Childhood Exposure to Second-Hand Smoke: No Seatbelt Use: always Sunscreen Use: Yes Assistive Devices: Glasses, Oxygen - Continuous and Walker Allergies Allergies Allergy/AdvReac Type Severity Reaction Status Date / Time amoxicillin Allergy Intermediate Rash Verified 01/22/24 06:20 cyclobenzaprine AdvReac Intermediate Rash Verified 01/22/24 06:20 wheat AdvReac Fatigued Unverified 11/28/24 22:46 Home Meds Home Medications Medication Instructions Recorded Confirmed apixaban 5 mg tablet 5 mg PO QAM 12/05/23 11/28/24 aspirin 81 mg capsule 81 mg PO QAM 12/05/23 11/28/24 cholecalciferol (vitamin D3) 125 125 mcg PO DAILY 12/05/23 11/28/24 mcg (5,000 unit) tablet (Vitamin D3) coenzyme Q10 100 mg capsule 100 mg PO DAILY 12/05/23 11/28/24 (CoQ-10) spironolactone 25 mg tablet 25 mg PO DAILY 11/04/24 11/28/24 allopurinol 100 mg tablet 100 mg PO DAILY 11/28/24 11/28/24 ammonium lactate 12 % lotion 1 applic topical BID 11/28/24 11/28/24 metoprolol succinate 100 mg 100 mg PO BID 11/28/24 11/28/24 tablet,extended release 24 hr Previous Rx's Medication Instructions Recorded magnesium oxide 400 mg (241.3 mg 400 mg PO DAILY #30 tabs 12/12/23 magnesium) tablet empagliflozin 10 mg tablet 10 mg PO DAILY #30 tabs 11/12/24 (Jardiance) torsemide 20 mg tablet 40 mg (2 x 20 mg) PO QAM #30 tabs 11/12/24 Results & Data (ED) Vital Signs Vital Signs - 24 hr 11/28/24 18:28 11/28/24 18:28 11/28/24 18:31 Temperature 38.1 C H Temperature Source Oral Pulse Rate 102 H 102 H Pulse Rate from SpO2 Sensor Respiratory Rate 18 Respiratory Effort / Characteristics Non-Labored Spontaneous Respiratory Depth Normal Respiratory Pattern Regular Blood Pressure 111/60 Blood Pressure Mean 77 Blood Pressure Position Sitting Pulse Oximetry 98 95 Oxygen Delivery Method Room Air Nasal Cannula Oxygen Flow Rate 4 Sepsis Recent Fever Within 48 Hours Yes Sepsis New/Unexplained Change in Mental Status N/A Sepsis Action Taken by Nursing Physician Notified 11/28/24 19:00 11/28/24 19:00 11/28/24 20:20 Temperature Temperature Source Pulse Rate 100 H 101 H Pulse Rate from SpO2 Sensor Respiratory Rate 20 16 Respiratory Effort / Characteristics Respiratory Depth Respiratory Pattern Blood Pressure 102/65 102/65 99/53 L Blood Pressure Mean 84 84 56 Blood Pressure Position Pulse Oximetry 97 98 Oxygen Delivery Method Oxygen Flow Rate Sepsis Recent Fever Within 48 Hours Sepsis New/Unexplained Change in Mental Status Sepsis Action Taken by Nursing 11/28/24 21:00 11/28/24 21:30 11/28/24 22:00 Temperature Temperature Source Pulse Rate 101 H 100 H 99 H Pulse Rate from SpO2 Sensor Respiratory Rate 23 21 21 Respiratory Effort / Characteristics Respiratory Depth Respiratory Pattern Blood Pressure 95/56 L 107/62 110/54 L Blood Pressure Mean 77 78 72 Blood Pressure Position Pulse Oximetry 98 98 94 Oxygen Delivery Method Oxygen Flow Rate Sepsis Recent Fever Within 48 Hours Sepsis New/Unexplained Change in Mental Status Sepsis Action Taken by Nursing 11/28/24 22:19 11/28/24 23:37 11/29/24 00:00 Temperature Temperature Source Pulse Rate 100 H 96 H 99 H Pulse Rate from SpO2 Sensor Respiratory Rate 18 21 Respiratory Effort / Characteristics Respiratory Depth Respiratory Pattern Blood Pressure 97/64 L 102/60 Blood Pressure Mean 72 64 Blood Pressure Position Pulse Oximetry 99 96 Oxygen Delivery Method Oxygen Flow Rate Sepsis Recent Fever Within 48 Hours Sepsis New/Unexplained Change in Mental Status Sepsis Action Taken by Nursing 11/29/24 00:30 11/29/24 01:01 11/29/24 01:06 Temperature Temperature Source Pulse Rate 99 H 99 H 99 H Pulse Rate from SpO2 Sensor 99 H Respiratory Rate 20 18 19 Respiratory Effort / Characteristics Respiratory Depth Respiratory Pattern Blood Pressure 121/64 135/70 Blood Pressure Mean 84 91 Blood Pressure Position Pulse Oximetry 98 98 99 Oxygen Delivery Method Oxygen Flow Rate Sepsis Recent Fever Within 48 Hours Sepsis New/Unexplained Change in Mental Status Sepsis Action Taken by Nursing 11/29/24 02:00 11/29/24 02:30 Temperature Temperature Source Pulse Rate 99 H 99 H Pulse Rate from SpO2 Sensor Respiratory Rate 22 20 Respiratory Effort / Characteristics Respiratory Depth Respiratory Pattern Blood Pressure 105/63 120/77 Blood Pressure Mean 74 89 Blood Pressure Position Pulse Oximetry 100 98 Oxygen Delivery Method Oxygen Flow Rate Sepsis Recent Fever Within 48 Hours Sepsis New/Unexplained Change in Mental Status Sepsis Action Taken by Nursing Laboratory Data Attestation: I reviewed the patient's lab results. 11/29/24 04:41 11/29/24 04:41 Lab Results 11/28/24 11/28/24 11/28/24 Range/Units 18:36 19:13 20:35 WBC 17.80 H (4.8-10.8) K/ul RBC 4.15 L (4.70-6.10) M/uL Hgb 12.0 L (14.0-18.0) g/dl Hct 37.6 L (42.0-52.0) % MCV 90.6 (80.0-100.0) fL MCH 28.9 (25.0-34.0) pg MCHC 31.9 L (32.0-36.0) g/dL RDW Std Deviation 54.1 H (36.4-46.3) fL RDW Coeff of Arely 16.5 H (11.5-14.5) % Plt Count 123 L (130-400) K/uL MPV 11.6 (9.4-12.4) fL Immature Gran % (Auto) 0.9 % Neut % (Auto) 88.6 % Lymph % (Auto) 2.9 % [place] % (Auto) 7.4 % Eos % (Auto) 0.1 % Baso % (Auto) 0.1 % Neut # (Auto) 15.79 H (1.40-6.50) K/uL Lymph # (Auto) 0.52 L (1.20-3.40) K/uL [place] # (Auto) 1.31 H (0.11-0.59) K/uL Eos # (Auto) 0.01 (0.00-0.50) K/uL Baso # (Auto) 0.01 (0.00-0.20) K/uL Immature Gran # (Auto) 0.16 (0.01-0.20) K/uL PT 11.5 (9.0-12.0) Seconds INR 1.1 (0.9-1.1) Sodium 132 L (136-145) mmol/L Potassium 3.6 (3.5-5.1) mmol/L Chloride 89 L (98-107) mmol/L Carbon Dioxide 32 (21-32) mmol/L Anion Gap 11 (3-11) BUN 62 H (6-23) mg/dl Creatinine 2.05 H (0.6-1.4) mg/dl Est Cr Clr Drug Dosing 39.7 ml/min eGFR 35.29 BUN/Creatinine Ratio 30.2 H (10-20) Glucose 107 H (70-99(Fasting)) mg/dl Lactate 1.3 (0.4-2.0) mmol/L Calcium 9.2 (8.6-10.3) mg/dl Phosphorus 2.8 (2.5-4.9) mg/dl Magnesium 2.8 H (1.7-2.4) mg/dl Total Bilirubin 1.6 H (0.2-1.0) mg/dl Direct Bilirubin 0.5 H (0-0.2) mg/dl AST 25 (13-39) U/L ALT 17 (7-52) U/L Alkaline Phosphatase 112 H (34-104) U/L Troponin I High Sens 141.8 H* (0-20) pg/ml B-Natriuretic Peptide 1226 H (0-100) pg/ml Total Protein 7.9 (6.0-8.3) gm/dl Albumin 3.9 (3.4-5.0) gm/dl Procalcitonin 2.76 H (0-0.5) ng/ml TSH 2.123 (0.300-4.500) uIu/ml Urine Color Yellow Urine Appearance Clear (Clear) Urine pH 6.0 (4.5-7.5) Ur Specific [place] 1.013 (1.000-1.030) Urine Protein 1+ H (Negative) Urine Glucose (UA) Trace H (Negative) Urine Ketones Trace H (Negative) Urine Blood 2+ H (Negative) Urine Nitrite Negative (Negative) Urine Bilirubin Negative (Negative) Urine Urobilinogen Negative (Negative) Ur Leukocyte Esterase 2+ H (Negative) Urine WBC (Auto) 21-50 H (0-5) /hpf Urine RBC (Auto) 0-2 (0-2) /hpf U Hyaline Cast (Auto) 3-5 H (0-2) /lpf U Epithel Cells (Auto) 0-2 (0-2) /hpf Urine Bacteria (Auto) None Seen (None Seen) Urine Comment Adenovirus (PCR) Not Detected (NotDetected) B. pertussis DNA (PCR) Not Detected (NotDetected) B.parapertussis DNA PCR Not Detected (NotDetected) C. pneumoniae DNA (PCR) Not Detected (NotDetected) Coronavirus OC43 (PCR) Not Detected (NotDetected) Coronavirus HKU1 (PCR) Not Detected (NotDetected) Coronavirus 229E (PCR) Not Detected (NotDetected) SARS-CoV-2 (PCR) Not Detected (NotDetected) Coronavirus NL63 (PCR) Not Detected (NotDetected) Human Metapneumovir PCR Not Detected (NotDetected) Influenza Type A (PCR) Not Detected (NotDetected) Influenza Type B (PCR) Not Detected (NotDetected) M. pneumoniae (PCR) Not Detected (NotDetected) Parainfluenza 1 (PCR) Not Detected (NotDetected) Parainfluenza 2 (PCR) Not Detected (NotDetected) Parainfluenza 3 (PCR) Not Detected (NotDetected) Parainfluenza 4 (PCR) Not Detected (NotDetected) RSV (PCR) Not Detected (NotDetected) Entero/Rhino (PCR) Not Detected (NotDetected) 11/28/24 Range/Units 20:38 WBC (4.8-10.8) K/ul RBC (4.70-6.10) M/uL Hgb (14.0-18.0) g/dl Hct (42.0-52.0) % MCV (80.0-100.0) fL MCH (25.0-34.0) pg MCHC (32.0-36.0) g/dL RDW Std Deviation (36.4-46.3) fL RDW Coeff of Arely (11.5-14.5) % Plt Count (130-400) K/uL MPV (9.4-12.4) fL Immature Gran % (Auto) % Neut % (Auto) % Lymph % (Auto) % [place] % (Auto) % Eos % (Auto) % Baso % (Auto) % Neut # (Auto) (1.40-6.50) K/uL Lymph # (Auto) (1.20-3.40) K/uL [place] # (Auto) (0.11-0.59) K/uL Eos # (Auto) (0.00-0.50) K/uL Baso # (Auto) (0.00-0.20) K/uL Immature Gran # (Auto) (0.01-0.20) K/uL PT (9.0-12.0) Seconds INR (0.9-1.1) Sodium (136-145) mmol/L Potassium (3.5-5.1) mmol/L Chloride (98-107) mmol/L Carbon Dioxide (21-32) mmol/L Anion Gap (3-11) BUN (6-23) mg/dl Creatinine (0.6-1.4) mg/dl Est Cr Clr Drug Dosing ml/min eGFR BUN/Creatinine Ratio (10-20) Glucose (70-99(Fasting)) mg/dl Lactate (0.4-2.0) mmol/L Calcium (8.6-10.3) mg/dl Phosphorus (2.5-4.9) mg/dl Magnesium (1.7-2.4) mg/dl Total Bilirubin (0.2-1.0) mg/dl Direct Bilirubin (0-0.2) mg/dl AST (13-39) U/L ALT (7-52) U/L Alkaline Phosphatase (34-104) U/L Troponin I High Sens 191.6 H* D (0-20) pg/ml B-Natriuretic Peptide (0-100) pg/ml Total Protein (6.0-8.3) gm/dl Albumin (3.4-5.0) gm/dl Procalcitonin (0-0.5) ng/ml TSH (0.300-4.500) uIu/ml Urine Color Urine Appearance (Clear) Urine pH (4.5-7.5) Ur Specific [place] (1.000-1.030) Urine Protein (Negative) Urine Glucose (UA) (Negative) Urine Ketones (Negative) Urine Blood (Negative) Urine Nitrite (Negative) Urine Bilirubin (Negative) Urine Urobilinogen (Negative) Ur Leukocyte Esterase (Negative) Urine WBC (Auto) (0-5) /hpf Urine RBC (Auto) (0-2) /hpf U Hyaline Cast (Auto) (0-2) /lpf U Epithel Cells (Auto) (0-2) /hpf Urine Bacteria (Auto) (None Seen) Urine Comment Adenovirus (PCR) (NotDetected) B. pertussis DNA (PCR) (NotDetected) B.parapertussis DNA PCR (NotDetected) C. pneumoniae DNA (PCR) (NotDetected) Coronavirus OC43 (PCR) (NotDetected) Coronavirus HKU1 (PCR) (NotDetected) Coronavirus 229E (PCR) (NotDetected) SARS-CoV-2 (PCR) (NotDetected) Coronavirus NL63 (PCR) (NotDetected) Human Metapneumovir PCR (NotDetected) Influenza Type A (PCR) (NotDetected) Influenza Type B (PCR) (NotDetected) M. pneumoniae (PCR) (NotDetected) Parainfluenza 1 (PCR) (NotDetected) Parainfluenza 2 (PCR) (NotDetected) Parainfluenza 3 (PCR) (NotDetected) Parainfluenza 4 (PCR) (NotDetected) RSV (PCR) (NotDetected) Entero/Rhino (PCR) (NotDetected) Administered Medications Sodium Chloride (Nss) 1,000 mls @ 50 mls/hr IV .Q20H PIPER Stop: 11/30/24 00:29 Last Admin: 11/29/24 05:11 Dose: 50 mls/hr Documented By: Discontinued Medications Sodium Chloride (Nss) 500 mls @ 999 mls/hr IV .Q31M ONE Stop: 11/28/24 20:15 Last Infusion: 11/28/24 21:06 Dose: Infused Documented By: Admin: 11/28/24 20:25 Dose: 999 mls/hr Documented By: NIRAV Daptomycin 925 mg/ Syringe 18.5 mls @ 9.25 mls/min IV NOW ONE; Protocol Stop: 11/28/24 19:58 Last Admin: 11/28/24 21:02 Dose: 9.25 mls/min Documented By: NIRAV Cefepime HCl (Maxipime 2000mg) 2,000 mg in 20 mls @ 5 mls/min IV NOW STA; Protocol Stop: 11/28/24 19:51 Last Admin: 11/28/24 20:25 Dose: 5 mls/min Documented By: NIRAV Imaging Data Radiologist's Impression: Abdomen/Pelvis CT 11/28/24 19:45 Exam(s): CT ABDOMEN + PELVIS Without Contrast EXAM: CT Abdomen and Pelvis Without Intravenous Contrast CLINICAL HISTORY: Sepsis, question urinary tract infection. TECHNIQUE: Axial computed tomography images of the abdomen and pelvis without intravenous contrast. CTDI is 25.81 mGy and DLP is 1272.31 mGy-cm. Automated exposure control was utilized for the study. A dose lowering technique was utilized adhering to the principles of ALARA. COMPARISON: CT abdomen and pelvis 02/14/2020 FINDINGS: Lung bases: Unremarkable. No mass. No consolidation. Pleural space: Small right pleural effusion. Heart: Cardiomegaly. ABDOMEN: Liver: Cirrhosis. No visualized mass. Gallbladder and bile ducts: Cholelithiasis. No ultrasound evidence of acute cholecystitis. No ductal dilation. Pancreas: Unremarkable. No ductal dilation. Spleen: Unremarkable. No splenomegaly. Adrenals: Unremarkable. No mass. Kidneys and ureters: Unremarkable. No obstructing stones. No hydronephrosis. Stomach and bowel: Unremarkable. No obstruction. No mucosal thickening. PELVIS: Appendix: Normal appendix. Bladder: Unremarkable. No stones. Reproductive: Unremarkable as visualized. ABDOMEN and PELVIS: Intraperitoneal space: Unremarkable. No free air. No significant fluid collection. Bones/joints: No acute fracture. No dislocation. Soft tissues: Gynecomastia is noted. Small bilateral fat-containing inguinal hernias. Vasculature: Mild atherosclerosis. No aneurysm. Lymph nodes: Unremarkable. No enlarged lymph nodes. IMPRESSION: 1. Cirrhosis. No visualized mass. 2. Cholelithiasis. No ultrasound evidence of acute cholecystitis. 3. Cardiomegaly. 4. Small right pleural effusion. Electronically signed by: Jaky Koch MD 11/28/24 23:[address] 11/28/24 19:45 Exam(s): CT HEAD Without Contrast EXAM: CT Head Without Intravenous Contrast CLINICAL HISTORY: Reason for exam: confusion. TECHNIQUE: Axial computed tomography images of the head/brain without intravenous contrast. CTDI is 37.95 mGy and DLP is 924 mGy-cm. Automated exposure control was utilized for the study. A dose lowering technique was utilized adhering to the principles of ALARA. COMPARISON: Prior head CT from March 17, 2022. FINDINGS: Brain: Unremarkable. No hemorrhage. Mild nonspecific white matter changes. No edema. Ventricles: Unremarkable. No ventriculomegaly. Bones/joints: Unremarkable. No acute fracture. Soft tissues: Unremarkable. Sinuses: Unremarkable as visualized. No acute sinusitis. Mastoid air cells: Unremarkable as visualized. No mastoid effusion. IMPRESSION: No evidence of acute intracranial pathology. Electronically signed by: Radha Pond MD 11/28/24 22:37 PM Discharge Plan Visit Data Chief Complaint: Illness Stated Complaint: "feeling strange" ED Provider: Zelalem Dos Santos Discharge Problem: Acute UTI, Generalized weakness, Elevated troponin, Fever, Renal insufficiency, Leukocytosis Patient Disposition: Admitted As Inpatient Condition: Fair Discharge Instructions Interventions: ED Discharge Assessment Last Done: 11/29/24 03:54 Discharge Problem: Fever Qualifiers: Fever type: unspecified Qualified Code(s): R50.9 - Fever, unspecified Leukocytosis Qualifiers: Leukocytosis type: unspecified Qualified Code(s): D72.829 - Elevated white blood cell count, unspecified
[2024-11-28 20:24] LABS: Chlamydia pneumoniae PCR Not Detected (NotDetected); Coronavirus 229E PCR Not Detected (NotDetected); Coronavirus CoV-2 (COVID19)PCR Not Detected (NotDetected); Coronavirus HKU1 PCR Not Detected (NotDetected); Coronavirus NL63 PCR Not Detected (NotDetected); Coronavirus OC43PCR Not Detected (NotDetected); Human Metapneumovirus PCR Not Detected (NotDetected); Parainfluenza Virus 1 PCR Not Detected (NotDetected); Parainfluenza Virus 2 PCR Not Detected (NotDetected); Parainfluenza Virus 3 PCR Not Detected (NotDetected); Parainfluenza Virus 4 PCR Not Detected (NotDetected); Respiratory Syncytial VirusPCR Not Detected (NotDetected); Rhinovirus/Enterovirus PCR Not Detected (NotDetected)
[2024-11-28] MEDS: SODIUM CHLORIDE 0.9% 500 ML IV ONE (20:25)
[2024-11-28] MEDS: CEFEPIME 2000MG 2,000 MG/20 ML SYR IV STA (20:25)
[2024-11-28] MEDS: DAPTOmycin 925 MG in SYRINGE 0 ML IV ONE (21:02)
[2024-11-28 21:21] LABS: Appearance Urine Clear (Clear); Bacteria Urine Automated None Seen (None Seen); Epithelial Cell Urine Auto 0-2 /hpf (0-2); Glucose Urine UA Trace (Negative); RBC Urine Automated 0-2 /hpf (0-2); WBC Urine Automated 21-50 /hpf (0-5)
--- NOTE | 2024-11-28 22:38 | CT Scan Report ---
Exam(s): CT HEAD Without Contrast EXAM: CT Head Without Intravenous Contrast CLINICAL HISTORY: Reason for exam: confusion. TECHNIQUE: Axial computed tomography images of the head/brain without intravenous contrast. CTDI is 37.95 mGy and DLP is 924 mGy-cm. Automated exposure control was utilized for the study. A dose lowering technique was utilized adhering to the principles of ALARA. COMPARISON: Prior head CT from March 17, 2022. FINDINGS: Brain: Unremarkable. No hemorrhage. Mild nonspecific white matter changes. No edema. Ventricles: Unremarkable. No ventriculomegaly. Bones/joints: Unremarkable. No acute fracture. Soft tissues: Unremarkable. Sinuses: Unremarkable as visualized. No acute sinusitis. Mastoid air cells: Unremarkable as visualized. No mastoid effusion. IMPRESSION: No evidence of acute intracranial pathology. Electronically signed by: Radha Pond MD 11/28/24 22:37 PM
--- NOTE | 2024-11-28 23:10 | CT Scan Report ---
Exam(s): CT ABDOMEN + PELVIS Without Contrast EXAM: CT Abdomen and Pelvis Without Intravenous Contrast CLINICAL HISTORY: Sepsis, question urinary tract infection. TECHNIQUE: Axial computed tomography images of the abdomen and pelvis without intravenous contrast. CTDI is 25.81 mGy and DLP is 1272.31 mGy-cm. Automated exposure control was utilized for the study. A dose lowering technique was utilized adhering to the principles of ALARA. COMPARISON: CT abdomen and pelvis 02/14/2020 FINDINGS: Lung bases: Unremarkable. No mass. No consolidation. Pleural space: Small right pleural effusion. Heart: Cardiomegaly. ABDOMEN: Liver: Cirrhosis. No visualized mass. Gallbladder and bile ducts: Cholelithiasis. No ultrasound evidence of acute cholecystitis. No ductal dilation. Pancreas: Unremarkable. No ductal dilation. Spleen: Unremarkable. No splenomegaly. Adrenals: Unremarkable. No mass. Kidneys and ureters: Unremarkable. No obstructing stones. No hydronephrosis. Stomach and bowel: Unremarkable. No obstruction. No mucosal thickening. PELVIS: Appendix: Normal appendix. Bladder: Unremarkable. No stones. Reproductive: Unremarkable as visualized. ABDOMEN and PELVIS: Intraperitoneal space: Unremarkable. No free air. No significant fluid collection. Bones/joints: No acute fracture. No dislocation. Soft tissues: Gynecomastia is noted. Small bilateral fat-containing inguinal hernias. Vasculature: Mild atherosclerosis. No aneurysm. Lymph nodes: Unremarkable. No enlarged lymph nodes. IMPRESSION: 1. Cirrhosis. No visualized mass. 2. Cholelithiasis. No ultrasound evidence of acute cholecystitis. 3. Cardiomegaly. 4. Small right pleural effusion. Electronically signed by: Jaky Koch MD 11/28/24 23:09 PM
--- NOTE | 2024-11-29 02:56 | History & Physical Report ---
Date of Service November 29, 2024 Assessment & Plan (1) Fever: Plan: 64-year-old male with past medical history significant for obstructive sleep apnea on CPAP, chronic right-sided heart failure, hypertension, chronic atrial fibrillation, CKD stage III, chronic venous stasis dermatitis, history of endocarditis, status post AVR, status post MVR, poor balance, ambulates with walker, history of CVA who lives at home with his comes in because of fevers. Patient states since 4 PM he is having fevers. Denies any headache. No runny nose or sore throat. No cough. No nausea or vomiting. No diarrhea. Has some pain while micturating and he attributes this to recent Lara catheter which was removed recently.. No chest pain. No shortness of breath. No abdominal pain. Currently resting comfortably and hemodynamically stable. Patient was recently in the hospital for acute on chronic right-sided heart failure and during that admission spironolactone Jardiance were ordered and also was discharged to rehab on torsemide 40 mg. At the time of discharge to rehab patient did not want to remove Lara. When he followed up with PCP on 11/23/2024 Lara was removed. Fever Has leukocytosis Procalcitonin 2.[address] head is okay. CT abdomen pelvis shows cholelithiasis but no evidence of acute cholecystitis Possible UTI Possible lower extremity cellulitis ER empirically give cefepime and Dapto which will be continued Will follow cultures Gentle fluids normal saline 50 mL/h Non-ST elevated LA Initial troponin 141 and repeat is 191 EKG showing junctional rhythm Patient denies any chest pain or shortness of breath Patient is on Eliquis and beta-lisa Will follow serial enzymes and echo Telemetry Will keep him n.p.o. Cardiac consult in a.m. for further recommendations Thrombocytopenia Platelets 123 Possible from ongoing infection Will follow the labs Anemia Chronic Hemoglobin is 12 which is better than previous We will follow repeat labs Chronic right-sided heart failure Continue home spironolactone and torsemide and Jardiance Getting gentle fluids monitor for volume overload Hypertension On metoprolol succinate & spironolactone and torsemide Will monitor A-fib Metoprolol succinate and Eliquis Monitor CKD stage III Presented with creatinine of 2 which is around baseline Will follow the labs Obstructive sleep apnea CPAP nightly History of CVA On Eliquis and aspirin History of bioprosthetic valve replacement History of cirrhosis of liver Continue diuretics Monitor for volume overload History of intracranial septic embolism DVT prophylaxis On Eliquis. Monitor platelets Disposition Telemetry Full code. History of Present Illness Chief Complaint: Fevers Primary Care Provider: Yuriy Dempsey MD 64-year-old male with past medical history significant for obstructive sleep apnea on CPAP, chronic right-sided heart failure, hypertension, chronic atrial fibrillation, CKD stage III, chronic venous stasis dermatitis, history of endocarditis, status post AVR, status post MVR, poor balance, ambulates with walker, history of CVA who lives at home with his comes in because of fevers. Patient states since 4 PM he is having fevers. Denies any headache. No runny nose or sore throat. No cough. No nausea or vomiting. No diarrhea. Has some pain while micturating and he attributes this to recent Lara catheter which was removed recently.. No chest pain. No shortness of breath. No abdominal pain. Currently resting comfortably and hemodynamically stable. Patient was recently in the hospital for acute on chronic right-sided heart failure and during that admission spironolactone Jardiance were ordered and also was discharged to rehab on torsemide 40 mg. At the time of discharge to rehab patient did not want to remove Lara. When he followed up with PCP on 11/23/2024 Lara was removed. Past medical history. As mentioned above Status post AVR and status post MVR as per records Social history. . No smoking. No alcohol use. No drug use. Family history. No family history on file. Allergies Allergy/AdvReac Type Severity Reaction Status Date / Time amoxicillin Allergy Intermediate Rash Verified 01/22/24 06:20 cyclobenzaprine AdvReac Intermediate Rash Verified 01/22/24 06:20 wheat AdvReac Fatigued Unverified 11/28/24 22:46 Home Medications Medication Instructions Recorded Confirmed Type apixaban 5 mg tablet 5 mg PO QAM 12/05/23 11/28/24 History aspirin 81 mg capsule 81 mg PO QAM 12/05/23 11/28/24 History cholecalciferol (vitamin D3) 125 125 mcg PO DAILY 12/05/23 11/28/24 History mcg (5,000 unit) tablet (Vitamin D3) coenzyme Q10 100 mg capsule 100 mg PO DAILY 12/05/23 11/28/24 History (CoQ-10) magnesium oxide 400 mg (241.3 mg 400 mg PO DAILY #30 tabs 12/12/23 11/28/24 Rx magnesium) tablet spironolactone 25 mg tablet 25 mg PO DAILY 11/04/24 11/28/24 History empagliflozin 10 mg tablet 10 mg PO DAILY #30 tabs 11/12/24 11/28/24 Rx (Jardiance) torsemide 20 mg tablet 40 mg (2 x 20 mg) PO QAM #30 tabs 11/12/24 11/28/24 Rx allopurinol 100 mg tablet 100 mg PO DAILY 11/28/24 11/28/24 History ammonium lactate 12 % lotion 1 applic topical BID 11/28/24 11/28/24 History metoprolol succinate 100 mg 100 mg PO BID 11/28/24 11/28/24 History tablet,extended release 24 hr Past Med/Surg History Problem List (Updated 11/29/24 @ 06:31 by Zelalem Dos Santos MD) Leukocytosis (Acute) Renal insufficiency (Acute) Fever (Acute) Elevated troponin (Acute) Fever Acute UTI (Acute) Atrial fibrillation S/P MVR (mitral valve replacement) S/P AVR (aortic valve replacement) Pickwickian syndrome Right-sided congestive heart failure Elevated troponin (Acute) Anemia (Acute) Shortness of breath (Acute) CHF (congestive heart failure) (Acute) Acute right-sided heart failure Sleep apnea History of endocarditis USHA (acute kidney injury) Scrotal erythema Chronic venous stasis Chronic atrial fibrillation Acute on chronic right-sided heart failure Prerenal azotemia Hypokalemia Hypokalemia Abnormal breath sounds Cerebellar ataxia Polyuria Bacteremia due to Enterococcus H/O heart valve replacement with bioprosthetic valve Gait instability RLS (restless legs syndrome) Excessive daytime sleepiness Screening PSA (prostate specific antigen) Nocturia Bacteremia due to Staphylococcus aureus (Acute 02/22/20) Cirrhosis of liver (Acute 02/28/20) Hematochezia (Acute 02/24/20) History of aortic valve replacement (Acute 03/07/20) History of mitral valve replacement (Acute 03/07/20) Hypervolemia (Acute 03/01/20) Injury of kidney (Acute 03/01/20) Intracranial septic embolism (Acute 02/22/20) Sleep apnea in adult Malnutrition DVT prophylaxis Heart failure Mitral regurgitation Severe aortic stenosis Endocarditis Acute hypokalemia (Acute) Alcohol use Generalized weakness (Acute) Heart murmur Hypokalemia Basal cell carcinoma Screening PSA (prostate specific antigen) Central positional vertigo Osteoarthritis of knee Medical History Cerebellar ataxia (2020) Bilateral cataracts BPH (benign prostatic hyperplasia) Polyuria History of restless legs syndrome Gait instability since stroke, has a balance problem, uses a cane Hx of vertigo Chronic atrial fibrillation no caridoversion, follows with Hannah (12/12/23), takes eliquis Hx of basal cell carcinoma Hx of bacteremia (2019) USHA (acute kidney injury) (12/2023) recently hospitalized at [facility] "to drain fluid from my body" and was given IV lasix, which pt. 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, unsure of cause Cirrhosis of liver Dyspnea on exertion History of asthma Acute on chronic right-sided heart failure History of embolic stroke (2020) loss of balance, MRI showed new emboli in brain, currently has balance problems, no longer follows with neuro - takes eliquis Acute hypoxemic respiratory failure (03/01/20) hx Abnormal LFTs Benign essential hypertension Obstructive sleep apnea cpap with 2L oxygen - compliant Surgical History Hx of cataract extraction left Hx of basal cell carcinoma excision Hx of mitral valve replacement (02/2020) PSH- follows with Hannah at [facility] (12/12/23) Hx of aortic valve replacement (02/2020) PSH History of vasectomy Family History Father Heart disease Hypertension, Onset Age: 50 Kidney disease, Onset Age: 30 Kidney stones as young man Myocardial infarction Passed in 2006 with heart attack age 78 Brother Asthma Prostate cancer, Onset Age: 61 Treated Radiation and hormonal. Cancer younger brother, skin cancer Mother Cancer Skin cancer Brother Cancer skin cancer Denies family history of Ovarian cancer Diabetes Breast cancer Lung cancer Colorectal cancer Stroke Social History Smoking Status: Never smoker Tobacco Type: Cigarettes Second Hand Exposure: No; Do You Dip or Chew Tobacco: No; Hx Alcohol Use: No Hx Substance Use: No Preferred Language: Persian Communication Ability: Effective Communication Ability Comment: ILIAMNA Hearing Ability: Hard of Hearing [employer] Required: No Beliefs That Will Affect Care: None marital status: Current Living Situation: Spouse current occupational status: employed 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 How many Children do You have: 0 How many Children do You have Comment: 1 step child Other Information That Helps Us Care for You: No Feels Safe at Home: Yes Safety Concerns: Feels Safe At This Time Childhood Exposure to Second-Hand Smoke: No Seatbelt Use: always Sunscreen Use: Yes Assistive Devices: Glasses, Oxygen - Continuous and Walker Review of Systems Review of Systems: All systems reviewed & are unremarkable except as noted in HPI & below Physical Exam Physical Exam: General- Not in acute distress Head- atraumatic Eyes- PERRL. ENT- oropharynx clear Neck- supple, no JVD. Lungs- clear to auscultation no wheezing or crackles Heart- regular rhythm; no murmur, no gallop. Abdomen- normal bowel sounds, soft, nontender, no distension Extremities- b/l lower extremity chronic skin changes seen. crusting of legs seen Neuro- alert, oriented PERRL, no facial palsy; no dysarthria; moves extremities Results & Data Results & Data Vital Signs (Past 12 Hours) Vital Signs Temp Pulse Resp BP Pulse Ox O2 Del Method O2 Flow Rate 11/29/24 02:00 99 H 22 105/63 100 11/29/24 01:06 99 H 19 99 11/29/24 01:01 99 H 18 135/70 98 11/29/24 00:30 99 H 20 121/64 98 11/29/24 00:00 99 H 21 102/60 96 11/28/24 23:37 96 H 18 97/64 L 99 11/28/24 22:19 100 H 11/28/24 22:00 99 H 21 110/54 L 94 11/28/24 21:30 100 H 21 107/62 98 11/28/24 21:00 101 H 23 95/56 L 98 11/28/24 20:20 101 H 16 99/53 L 98 11/28/24 19:00 102/65 11/28/24 19:00 100 H 20 102/65 97 11/28/24 18:31 102 H 11/28/24 18:28 95 Nasal Cannula 4 11/28/24 18:28 38.1 C H 102 H 18 111/60 98 Room Air Diagnostic Findings Laboratory Results WBC 17.80 K/ul (4.8-10.8) H 11/28/24 18:36 RBC 4.15 M/uL (4.70-6.10) L 11/28/24 18:36 Hgb 12.0 g/dl (14.0-18.0) L 11/28/24 18:36 Hct 37.6 % (42.0-52.0) L 11/28/24 18:36 MCV 90.6 fL (80.0-100.0) 11/28/24 18:36 MCH 28.9 pg (25.0-34.0) 11/28/24 18:36 MCHC 31.9 g/dL (32.0-36.0) L 11/28/24 18:36 RDW Std Deviation 54.1 fL (36.4-46.3) H 11/28/24 18:36 RDW Coeff of Arely 16.5 % (11.5-14.5) H 11/28/24 18:36 Plt Count 123 K/uL (130-400) L 11/28/24 18:36 MPV 11.6 fL (9.4-12.4) 11/28/24 18:36 Immature Gran % (Auto) 0.9 % 11/28/24 18:36 Neut % (Auto) 88.6 % 11/28/24 18:36 Lymph % (Auto) 2.9 % 11/28/24 18:36 Mcintosh % (Auto) 7.4 % 11/28/24 18:36 Eos % (Auto) 0.1 % 11/28/24 18:36 Baso % (Auto) 0.1 % 11/28/24 18:36 Neut # (Auto) 15.79 K/uL (1.40-6.50) H 11/28/24 18:36 Lymph # (Auto) 0.52 K/uL (1.20-3.40) L 11/28/24 18:36 Mcintosh # (Auto) 1.31 K/uL (0.11-0.59) H 11/28/24 18:36 Eos # (Auto) 0.01 K/uL (0.00-0.50) 11/28/24 18:36 Baso # (Auto) 0.01 K/uL (0.00-0.20) 11/28/24 18:36 Immature Gran # (Auto) 0.16 K/uL (0.01-0.20) 11/28/24 18:36 PT 11.5 Seconds (9.0-12.0) 11/28/24 18:36 INR 1.1 (0.9-1.1) 11/28/24 18:36 Sodium 132 mmol/L (136-145) L 11/28/24 18:36 Potassium 3.6 mmol/L (3.5-5.1) 11/28/24 18:36 Chloride 89 mmol/L (98-107) L 11/28/24 18:36 Carbon Dioxide 32 mmol/L (21-32) 11/28/24 18:36 Anion Gap 11 (3-11) 11/28/24 18:36 BUN 62 mg/dl (6-23) H 11/28/24 18:36 Creatinine 2.05 mg/dl (0.6-1.4) H 11/28/24 18:36 Est Cr Clr Drug Dosing 39.7 ml/min 11/28/24 18:36 eGFR 35.29 11/28/24 18:36 BUN/Creatinine Ratio 30.2 (10-20) H 11/28/24 18:36 Glucose 107 mg/dl (70-99(Fasting)) H 11/28/24 18:36 Lactate 1.3 mmol/L (0.4-2.0) 11/28/24 18:36 Calcium 9.2 mg/dl (8.6-10.3) 11/28/24 18:36 Phosphorus 2.8 mg/dl (2.5-4.9) 11/28/24 18:36 Magnesium 2.8 mg/dl (1.7-2.4) H 11/28/24 18:36 Total Bilirubin 1.6 mg/dl (0.2-1.0) H 11/28/24 18:36 Direct Bilirubin 0.5 mg/dl (0-0.2) H 11/28/24 18:36 AST 25 U/L (13-39) 11/28/24 18:36 ALT 17 U/L (7-52) 11/28/24 18:36 Alkaline Phosphatase 112 U/L (34-104) H 11/28/24 18:36 Troponin I High Sens 191.6 pg/ml (0-20) H* D 11/28/24 20:38 B-Natriuretic Peptide 1226 pg/ml (0-100) H 11/28/24 18:36 Total Protein 7.9 gm/dl (6.0-8.3) 11/28/24 18:36 Albumin 3.9 gm/dl (3.4-5.0) 11/28/24 18:36 Procalcitonin 2.76 ng/ml (0-0.5) H 11/28/24 18:36 TSH 2.123 uIu/ml (0.300-4.500) 11/28/24 18:36 Urine Color Yellow 11/28/24 20:35 Urine Appearance Clear (Clear) 11/28/24 20:35 Urine pH 6.0 (4.5-7.5) 11/28/24 20:35 Ur Specific [place] 1.013 (1.000-1.030) 11/28/24 20:35 Urine Protein 1+ (Negative) H 11/28/24 20:35 Urine Glucose (UA) Trace (Negative) H 11/28/24 20:35 Urine Ketones Trace (Negative) H 11/28/24 20:35 Urine Blood 2+ (Negative) H 11/28/24 20:35 Urine Nitrite Negative (Negative) 11/28/24 20:35 Urine Bilirubin Negative (Negative) 11/28/24 20:35 Urine Urobilinogen Negative (Negative) 11/28/24 20:35 Ur Leukocyte Esterase 2+ (Negative) H 11/28/24 20:35 Urine WBC (Auto) 21-50 /hpf (0-5) H 11/28/24 20:35 Urine RBC (Auto) 0-2 /hpf (0-2) 11/28/24 20:35 U Hyaline Cast (Auto) 3-5 /lpf (0-2) H 11/28/24 20:35 U Epithel Cells (Auto) 0-2 /hpf (0-2) 11/28/24 20:35 Urine Bacteria (Auto) None Seen (None Seen) 11/28/24 20:35 Urine Comment 11/28/24 20:35 Adenovirus (PCR) Not Detected (NotDetected) 11/28/24 19:13 B. pertussis DNA (PCR) Not Detected (NotDetected) 11/28/24 19:13 B.parapertussis DNA PCR Not Detected (NotDetected) 11/28/24 19:13 C. pneumoniae DNA (PCR) Not Detected (NotDetected) 11/28/24 19:13 Coronavirus OC43 (PCR) Not Detected (NotDetected) 11/28/24 19:13 Coronavirus HKU1 (PCR) Not Detected (NotDetected) 11/28/24 19:13 Coronavirus 229E (PCR) Not Detected (NotDetected) 11/28/24 19:13 SARS-CoV-2 (PCR) Not Detected (NotDetected) 11/28/24 19:13 Coronavirus NL63 (PCR) Not Detected (NotDetected) 11/28/24 19:13 Human Metapneumovir PCR Not Detected (NotDetected) 11/28/24 19:13 Influenza Type A (PCR) Not Detected (NotDetected) 11/28/24 19:13 Influenza Type B (PCR) Not Detected (NotDetected) 11/28/24 19:13 M. pneumoniae (PCR) Not Detected (NotDetected) 11/28/24 19:13 Parainfluenza 1 (PCR) Not Detected (NotDetected) 11/28/24 19:13 Parainfluenza 2 (PCR) Not Detected (NotDetected) 11/28/24 19:13 Parainfluenza 3 (PCR) Not Detected (NotDetected) 11/28/24 19:13 Parainfluenza 4 (PCR) Not Detected (NotDetected) 11/28/24 19:13 RSV (PCR) Not Detected (NotDetected) 11/28/24 19:13 Entero/Rhino (PCR) Not Detected (NotDetected) 11/28/24 19:13 Impressions Abdomen/Pelvis CT 11/28/24 19:45 Exam(s): CT ABDOMEN + PELVIS Without Contrast EXAM: CT Abdomen and Pelvis Without Intravenous Contrast CLINICAL HISTORY: Sepsis, question urinary tract infection. TECHNIQUE: Axial computed tomography images of the abdomen and pelvis without intravenous contrast. CTDI is 25.81 mGy and DLP is 1272.31 mGy-cm. Automated exposure control was utilized for the study. A dose lowering technique was utilized adhering to the principles of ALARA. COMPARISON: CT abdomen and pelvis 02/14/2020 FINDINGS: Lung bases: Unremarkable. No mass. No consolidation. Pleural space: Small right pleural effusion. Heart: Cardiomegaly. ABDOMEN: Liver: Cirrhosis. No visualized mass. Gallbladder and bile ducts: Cholelithiasis. No ultrasound evidence of acute cholecystitis. No ductal dilation. Pancreas: Unremarkable. No ductal dilation. Spleen: Unremarkable. No splenomegaly. Adrenals: Unremarkable. No mass. Kidneys and ureters: Unremarkable. No obstructing stones. No hydronephrosis. Stomach and bowel: Unremarkable. No obstruction. No mucosal thickening. PELVIS: Appendix: Normal appendix. Bladder: Unremarkable. No stones. Reproductive: Unremarkable as visualized. ABDOMEN and PELVIS: Intraperitoneal space: Unremarkable. No free air. No significant fluid collection. Bones/joints: No acute fracture. No dislocation. Soft tissues: Gynecomastia is noted. Small bilateral fat-containing inguinal hernias. Vasculature: Mild atherosclerosis. No aneurysm. Lymph nodes: Unremarkable. No enlarged lymph nodes. IMPRESSION: 1. Cirrhosis. No visualized mass. 2. Cholelithiasis. No ultrasound evidence of acute cholecystitis. 3. Cardiomegaly. 4. Small right pleural effusion. Electronically signed by: Jaky Koch MD 11/28/24 23:[address] 11/28/24 19:45 Exam(s): CT HEAD Without Contrast EXAM: CT Head Without Intravenous Contrast CLINICAL HISTORY: Reason for exam: confusion. TECHNIQUE: Axial computed tomography images of the head/brain without intravenous contrast. CTDI is 37.95 mGy and DLP is 924 mGy-cm. Automated exposure control was utilized for the study. A dose lowering technique was utilized adhering to the principles of ALARA. COMPARISON: Prior head CT from March 17, 2022. FINDINGS: Brain: Unremarkable. No hemorrhage. Mild nonspecific white matter changes. No edema. Ventricles: Unremarkable. No ventriculomegaly. Bones/joints: Unremarkable. No acute fracture. Soft tissues: Unremarkable. Sinuses: Unremarkable as visualized. No acute sinusitis. Mastoid air cells: Unremarkable as visualized. No mastoid effusion. IMPRESSION: No evidence of acute intracranial pathology. Electronically signed by: Radha Pond MD 11/28/24 22:37 PM ECG Additional Comments: ECG. Accelerated junctional rhythm rate of 102. ST depression in lateral leads. QTc 469 Code Status & VTE Plan VTE Prophylaxis Plan VTE Prophylaxis will be ordered: Yes
[2024-11-29] MEDS ORDERED: ACETAMINOPHEN 325 MG TAB PO PRN (03:54)
[2024-11-29] MEDS ORDERED: NITROGLYCERIN SL 0.4 MG/TAB TAB SL PRN (03:54)
[2024-11-29 04:57] LABS: Hematocrit (blood only) 30.0 % (42.0-52.0); Hemoglobin 9.7 g/dl (14.0-18.0); Immature Granulocytes # (auto) 0.05 K/uL (0.01-0.20); Immature Granulocytes % (auto) 0.4 %; Mean Corpuscular Hemoglobin 29.4 pg (25.0-34.0); Mean Corpuscular Volume 90.9 fL (80.0-100.0); Platelet Count 102 K/uL (130-400); RDW Standard Deviation 54.0 fL (36.4-46.3); Red Blood Count 3.30 M/uL (4.70-6.10); White Blood Count 11.86 K/ul (4.8-10.8)
[2024-11-29] MEDS: SODIUM CHLORIDE 0.9% 1,000 ML IV SCH (05:11)
[2024-11-29 05:21] LABS: Anion Gap 11.0 (3-11); Calcium 8.5 mg/dl (8.6-10.3); Carbon Dioxide 29.0 mmol/L (21-32); Chloride 95.0 mmol/L (98-107); Magnesium 2.8 mg/dl (1.7-2.4); Potassium 3.5 mmol/L (3.5-5.1); Sodium 135.0 mmol/L (136-145)
[2024-11-29 05:27] LABS: Blood Urea Nitrogen 63.0 mg/dl (6-23); Creatinine Clr Calc Pharmacy 45.7 ml/min; Glucose 110.0 mg/dl (70-99(Fasting))
--- NOTE | 2024-11-29 08:08 | XRay Report ---
XR chest 1V portable CLINICAL HISTORY: Sepsis COMPARISON STUDY: 11/04/2024 FINDINGS: Stable cardiac valve repair. Stable cardiomegaly with mild pulmonary vascular congestion. T here is a small right pleural effusion and mild associated consolidation at the right base, improved. No pneumothorax. IMPRESSION: CHF with small right pleural effusion, improved. ACT 112: Negative or not required by law. Electronically signed by: Wade Stuart M.D. 11/29/2024 8:06 AM
[2024-11-29] MEDS: CEFEPIME 2000MG 2,000 MG/20 ML SYR IV SCH (08:44)
[2024-11-29] MEDS: AMMONIUM LACTATE 12% LOTION 225 GM BTL EXT SCH (08:47)
[2024-11-29] MEDS ORDERED: NON-FORMULARY MEDICATION (Coenzyme Q10 [Coq-10] 100 mg Capsule) PO SCH (09:00)
--- NOTE | 2024-11-29 09:02 | Cardiology Consultation ---
Date of Consultation November 29, 2024 Assessment & Plan (1) Fever: (2) Leukocytosis: (3) Acute UTI: (4) Elevated troponin: (5) S/P MVR (mitral valve replacement): (6) S/P AVR (aortic valve replacement): (7) Pickwickian syndrome: Plan Assessment: 64 year old medically complex male presents with fever and urinary symptoms. Tachycardic on initial arrival with mild elevation in troponin without acute EKG changes. Cardiology consulted. Plan: 1. Fever 2. Leukocytosis 3. Suspected acute UTI 4. Elevated troponin -Patient with recent indwelling urinary catheter, symptomatic and removed on 11/23. suspect UTI, culture pending. Continued management per primary team -mild troponin elevation in the setting of a suspected acute infectious process with no acute EKG changes. will obtain echocardiogram to assess for any acute changes or wall motion abnormalities. History of [facility] in 2021 showing mild non- obstructive disease at [facility] [place] -Continue to monitor on telemetry -Continue Toprol xl 100mg PO BID, Torsemide 40mg PO QD, Spironolactone 25mg PO QD, Jardiance 10mg PO QDand ASA 81mg QD -Known longstanding chronic A-fib. Continue Eliquis 5. s/p MVR 6. s/p AVR -Remote history of bacteremia endocarditis with history of valve replacements. -Echocardiogram to examine for any acute abnormalities on valves in light of abnormal labs and presenting fever -Blood cultures pending. 7. Pickwickian syndrome -Euvolemic on today's exam -Continue Torsemide, Spironolactone, Toprol xl and Jardiance for HF regimen -CPAP HS Case has been discussed with Dr. Andrea. Further recommendations regarding plan of care as per her assessment. I spent a total of 50 minutes on the date of service in preparation, delivery, documentation of the care provided to the patient excluding any time spent in the performance of separately billed services. SANG Alvarez [facility] Cardiology [facility] Supervising Physician Co-Signing Physician Notes I have reviewed the advanced practitioner's documentation on the date of service referenced in note, and I agree with, and take responsibility for the plan of care. I spent a total of [30] minutes coordinating, documenting, and providing care for this patient excluding time spent in the performance of separately billed services or time spent by another provider. 64-year-old with history of heart failure with preserved ejection fraction, chronic kidney disease, hypertension, dyslipidemia history of MSSA bacteremia February 2020 post bioprosthetic mitral valve 27 mm Gloria Ward magna valve, bioprosthetic aortic valve 23 mm Gloria Ward magna valve and pericardial patch repair of the mitral valve annulus, chronic atrial fibrillation, history of CVA secondary to septic emboli recent admission from November 04 to for acute heart failure discharged to rehab and has been home for about 1 week. Yesterday had symptoms of urinary urgency frequency and burning sensation associated with chills and fever. as per also was slightly disoriented/loopy Emergency room noted to have urinary tract infection started on antibiotics, elevated troponins peak of 191 which are downtrending Vitals stable systolic murmur present Assessment and plan Elevated troponin secondary to demand supply ischemia Echocardiogram no significant change in gradients of aortic and mitral prosthetic valves. Will need to follow-up on blood cultures if positive blood cultures will likely need transesophageal echocardiogram for evaluation of the prosthetic valves. Currently appears euvolemic on torsemide Aldactone Jardiance - Paroxysmal A-fib on metoprolol continue with eliquis History of Present Illness Reason for Consultation: NSTEMI Requesting Physician: Mihaela Hospitalist Attending Physician: Gael Frost MD History of Present Illness HPI: Patient is a 64 year old male with complex cardiac history as noted below that presents for reports of "fevers". Patient also endorses pain with urination, but attributes that to his echavarria catheter being recently removed. (11/23/24) Most recent admission 11/04-11/12/24 for acute on chronic heart failure s/t "getting behind on his medications". Patient had stopped taking his diuretic therapies as prescribed at that time due to frequent urination and inability to stand due to bilateral knee pain. He was aggressively diuresed, and discharged to a rehab facility with a echavarria catheter in place. Upon seeing patient in examination today he offers no acute cardiac concerns. No chest pain, pressure or palpitations. No shortness of breath, PND, pre-syncope, syncope or edema. He reports that he feels that his catheter had become dislodged earlier in the week creating excruciating pain and then was removed on 11/23 with increased dysuria as well as urinary frequency. Patient is afebrile at time of exam. Past Medical and Surgical History: History of mitral valve endocarditis, MSSA bacteremia February 2020 Preoperative severe aortic valve stenosis February 22, 2022 Coronary Angiography ([facility]): Right dominant coronary anatomy, without obstructive coronary artery disease. 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 H/H 9.7/30.0 BNP 1226 High sensitivity troponin 141.8/191.6/157.0 Chest x-ray--CHF with small right pleural effusion, improved. CT ABD/Pelvis: IMPRESSION: 1. Cirrhosis. No visualized mass. 2. Cholelithiasis. No ultrasound evidence of acute cholecystitis. 3. Cardiomegaly. 4. Small right pleural effusion. Head CT: Negative (ordered for confusion) EKG on admission: suggest accelerated junctional rhythm, inferior infarct (cited previously), ? ST depression in lateral leads. Allergies Allergy/AdvReac Type Severity Reaction Status Date / Time amoxicillin Allergy Intermediate Rash Verified 01/22/24 06:20 cyclobenzaprine AdvReac Intermediate Rash Verified 01/22/24 06:20 wheat AdvReac Fatigued Unverified 11/28/24 22:46 Home Medications Medication Instructions Recorded Confirmed Type apixaban 5 mg tablet 5 mg PO QAM 12/05/23 11/28/24 History aspirin 81 mg capsule 81 mg PO QAM 12/05/23 11/28/24 History cholecalciferol (vitamin D3) 125 125 mcg PO DAILY 12/05/23 11/28/24 History mcg (5,000 unit) tablet (Vitamin D3) coenzyme Q10 100 mg capsule 100 mg PO DAILY 12/05/23 11/28/24 History (CoQ-10) magnesium oxide 400 mg (241.3 mg 400 mg PO DAILY #30 tabs 12/12/23 11/28/24 Rx magnesium) tablet spironolactone 25 mg tablet 25 mg PO DAILY 11/04/24 11/28/24 History empagliflozin 10 mg tablet 10 mg PO DAILY #30 tabs 11/12/24 11/28/24 Rx (Jardiance) torsemide 20 mg tablet 40 mg (2 x 20 mg) PO QAM #30 tabs 11/12/24 11/28/24 Rx allopurinol 100 mg tablet 100 mg PO DAILY 11/28/24 11/28/24 History ammonium lactate 12 % lotion 1 applic topical BID 11/28/24 11/28/24 History metoprolol succinate 100 mg 100 mg PO BID 11/28/24 11/28/24 History tablet,extended release 24 hr Patient History Medical History Cerebellar ataxia (2020) Bilateral cataracts BPH (benign prostatic hyperplasia) Polyuria History of restless legs syndrome Gait instability since stroke, has a balance problem, uses a cane Hx of vertigo Chronic atrial fibrillation no caridoversion, follows with Hannah (12/12/23), takes eliquis Hx of basal cell carcinoma Hx of bacteremia (2019) USHA (acute kidney injury) (12/2023) recently hospitalized at [facility] "to drain fluid from my body" and was given IV lasix, which pt. 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, unsure of cause Cirrhosis of liver Dyspnea on exertion History of asthma Acute on chronic right-sided heart failure History of embolic stroke (2020) loss of balance, MRI showed new emboli in brain, currently has balance problems, no longer follows with neuro - takes eliquis Acute hypoxemic respiratory failure (03/01/20) hx Abnormal LFTs Benign essential hypertension Obstructive sleep apnea cpap with 2L oxygen - compliant Surgical History Hx of cataract extraction left Hx of basal cell carcinoma excision Hx of mitral valve replacement (02/2020) PSH- follows with Hannah at [facility] (12/12/23) Hx of aortic valve replacement (02/2020) PSH History of vasectomy Family History Father Heart disease Hypertension, Onset Age: 50 Kidney disease, Onset Age: 30 Kidney stones as young man Myocardial infarction Passed in 2005 with heart attack age 78 Brother Asthma Prostate cancer, Onset Age: 61 Treated Radiation and hormonal. Cancer younger brother, skin cancer Mother Cancer Skin cancer Brother Cancer skin cancer Denies family history of Ovarian cancer Diabetes Breast cancer Lung cancer Colorectal cancer Stroke Social History Smoking Status: Never smoker Tobacco Type: Cigarettes Second Hand Exposure: No; Do You Dip or Chew Tobacco: No; Hx Alcohol Use: No Hx Substance Use: No Preferred Language: Panamanian Communication Ability: Effective Communication Ability Comment: [place]-SHAWNEE Hearing Ability: Hard of Hearing Pre Press Manager Required: No Beliefs That Will Affect Care: None marital status: Current Living Situation: Spouse current occupational status: employed 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 How many Children do You have: 0 How many Children do You have Comment: 1 step child Other Information That Helps Us Care for You: No Feels Safe at Home: Yes Safety Concerns: Feels Safe At This Time Childhood Exposure to Second-Hand Smoke: No Seatbelt Use: always Sunscreen Use: Yes Assistive Devices: Glasses, Oxygen - Continuous and Walker Review of Systems Review of Systems: All systems reviewed & are unremarkable except as noted in HPI & below Physical Exam Constitutional: well developed, well nourished and + overweight; no acute distress and not ill appearing Neck: normal visual inspection and trachea midline Respiratory: normal respiratory effort, lungs clear to auscultation Cardiovascular: Rate/Rhythm: + irregularly irregular Heart Sounds: normal S1, normal S2 and + murmur (+1/6 systolic) Vessels: dorsalis pedis pulses present; no JVD Skin: normal turgor chronic venous stasis dermatitis Psychiatric: A+Ox3, euthymic affect Results & Data Vital Signs (Past 12 Hours) Vital Signs Temp Pulse Pulse Resp BP BP Pulse Ox 11/29/24 07:06 80 20 105/69 100 11/29/24 07:03 100 H 11/29/24 06:17 80 18 95/59 L 100 11/29/24 05:57 99 07/27/25 05:36 11/29/24 05:36 36.9 C 80 20 99/63 L 98 11/29/24 05:15 83 20 95/56 L 94 11/29/24 03:00 83 19 108/66 99 11/29/24 02:30 99 H 20 120/77 98 11/29/24 02:00 99 H 22 105/63 100 11/29/24 01:06 99 H 19 99 11/29/24 01:01 99 H 18 135/70 98 11/29/24 00:30 99 H 20 121/64 98 11/29/24 00:00 99 H 21 102/60 96 11/28/24 23:37 96 H 18 97/64 L 99 11/28/24 22:19 100 H 11/28/24 22:00 99 H 21 110/54 L 94 11/28/24 21:30 100 H 21 107/62 98 11/28/24 21:00 101 H 23 95/56 L 98 O2 Del Method O2 Flow Rate 11/29/24 07:06 Nasal Cannula 4 11/29/24 07:03 11/29/24 06:17 Nasal Cannula 4 11/29/24 05:57 Nasal Cannula 4 11/29/24 05:36 Nasal Cannula 4 11/29/24 05:36 Nasal Cannula 4 11/29/24 05:15 Nasal Cannula 4 11/29/24 03:00 11/29/24 02:30 11/29/24 02:00 11/29/24 01:06 11/29/24 01:01 11/29/24 00:30 11/29/24 00:00 11/28/24 23:37 11/28/24 22:19 11/28/24 22:00 11/28/24 21:30 11/28/24 21:00 Laboratory Results Cardiac Enzymes 11/28/24 11/28/24 11/29/24 Range/Units 18:36 20:38 04:41 AST 25 (13-39) U/L Troponin I High Sens 141.8 H* 191.6 H* D 157.0 H* (0-20) pg/ml B-Natriuretic Peptide 1226 H (0-100) pg/ml Coagulation 11/28/24 Range/Units 18:36 PT 11.5 (9.0-12.0) Seconds B-Natriuretic Peptide 1226 H (0-100) pg/ml CBC 11/28/24 11/29/24 Range/Units 18:36 04:41 WBC 17.80 H 11.86 H (4.8-10.8) K/ul RBC 4.15 L 3.30 L (4.70-6.10) M/uL Hgb 12.0 L 9.7 L (14.0-18.0) g/dl Hct 37.6 L 30.0 L (42.0-52.0) % Plt Count 123 L 102 L (130-400) K/uL Neut # (Auto) 15.79 H 9.47 H (1.40-6.50) K/uL Lymph # (Auto) 0.52 L 0.92 L (1.20-3.40) K/uL [place] # (Auto) 1.31 H 1.34 H (0.11-0.59) K/uL Eos # (Auto) 0.01 0.07 (0.00-0.50) K/uL Baso # (Auto) 0.01 0.01 (0.00-0.20) K/uL Comprehensive Metabolic Panel 11/28/24 11/29/24 Range/Units 18:36 04:41 Sodium 132 L 135 L (136-145) mmol/L Potassium 3.6 3.5 (3.5-5.1) mmol/L Chloride 89 L 95 L (98-107) mmol/L Carbon Dioxide 32 29 (21-32) mmol/L BUN 62 H 63 H (6-23) mg/dl Creatinine 2.05 H 1.78 H (0.6-1.4) mg/dl Glucose 107 H 110 H (70-99(Fasting)) mg/dl Calcium 9.2 8.5 L (8.6-10.3) mg/dl Direct Bilirubin 0.5 H (0-0.2) mg/dl AST 25 (13-39) U/L ALT 17 (7-52) U/L Alkaline Phosphatase 112 H (34-104) U/L Total Protein 7.9 (6.0-8.3) gm/dl Albumin 3.9 (3.4-5.0) gm/dl Intake and Output 07/11/29/24 11/29/24 22:59 06:59 14:59 Intake Total 1000 / 1000 Output Total 250 / 450 200 / 450 150 / 150 Balance 750 / 550 -200 / 550 -150 / -150 Intake: IV 500 / 500 Sodium Chloride 0.9% 500 ml @ 500 / 500 999 mls/hr IV .Q31M [facility] Rx#: [id number] Other 500 / 500 Output: Urine 250 / 450 200 / 450 150 / 150 Other: Other Intake Source IV fluids Weight 92.6 kg 89.5 kg Weight Measurement Method Built in Bedscale Built in Bedscale Diagnostic Findings Echocardiogram 11/04/24 [facility] Moderate LVH LVEF 65-70% Left atrium moderately dilated RV moderately to severely dilated RA severely dilated Normal gradients for prosthetic aortic valve Presence of bioprosthetic mitral valve --leaflets are thickened but move well MV velocities do not suggest stenosis Mild TR right ventricular systolic pressure [id number] PG Care Time/CCT Total # of Minutes Spent Total Time Spent with Patient: Total time spent is greater than 50% in coordination of care (as documented) at patient's floor/unit and/or counseling patient: [place] [address] IN/OBS CONSULT LVL 5,80M Patient Type New Diagnoses Fever R50.9 Fever type: unspecified Leukocytosis D72.829 Leukocytosis type: unspecified Acute UTI N39.0 Elevated troponin R79.89 S/P MVR (mitral valve replacement) Z95.2 S/P AVR (aortic valve replacement) Z95.2 Pickwickian syndrome E66.2 Time Spent (min) 50 (1) Fever Fever type: unspecified Qualified Code(s): R50.9 - Fever, unspecified (2) Leukocytosis Leukocytosis type: unspecified Qualified Code(s): D72.829 - Elevated white blood cell count, unspecified
[2024-11-29] MEDS ORDERED: Nursing to Pharmacy Communication SCH (10:45)
[2024-11-29] MEDS: APIXABAN 5 MG TABLET PO SCH ×2 (10:52→11:19)
[2024-11-29] MEDS: CHOLECALCIFEROL 125 MCG (5,000 UNITS) TAB PO SCH ×2 (10:52→11:20)
[2024-11-29] MEDS: ASPIRIN 81 MG ECTAB PO SCH ×2 (10:52→11:20)
[2024-11-29] MEDS: SPIRONOLACTONE 25 MG TAB PO SCH ×2 (10:53→11:19)
[2024-11-29] MEDS: EMPAGLIFLOZIN 10 MG TAB PO SCH ×2 (10:53→11:20)
[2024-11-29] MEDS: METOPROLOL SUCC 50MG EXT REL TAB PO SCH ×2 (10:53→11:20)
[2024-11-29] MEDS: TORSEMIDE 20 MG TAB PO SCH ×2 (10:53→11:21)
[2024-11-29] MEDS: MAGNESIUM OXIDE 400 MG TAB PO SCH ×2 (10:53→11:20)
[2024-11-29 13:01] LABS: A calco-baum cmplx NotReported Not Detected (NotDetected); Bact fragilis Not Reported Not Detected (NotDetected); Blood Culture Id Panel See PCR Comment (NotDetected); C auris Not Reported Not Detected (NotDetected); Calbicans Not Reported Not Detected (NotDetected); Candida glabrata Not Reported Not Detected (NotDetected); Candida krusei Not Reported Not Detected (NotDetected); Cneoformans/gatti Not Reported Not Detected (NotDetected); Cparapsilosis Not Reported Not Detected (NotDetected); Ctropicalis Not Reported Not Detected (NotDetected); E cloacae compx Not Reported Not Detected (NotDetected); Efaecalis Not Reported Not Detected (NotDetected); Efaecium Not Reported Not Detected (NotDetected); Enterobacterales Not Reported Not Detected (NotDetected); Escherichia coli Not Reported Not Detected (NotDetected); H influenzae Not Reported Not Detected (NotDetected); K aerogenes Not Reported Not Detected (NotDetected); Koxytoca Not Reported Not Detected (NotDetected); Kpneumoniae grp Not Reported Not Detected (NotDetected); Lmonocyt Not Reported Not Detected (NotDetected); N meningitidis Not Reported Not Detected (NotDetected); P aeruginosa Not Reported Not Detected (NotDetected); Proteus spp Not Reported Not Detected (NotDetected); Salmonella spp Not Reported Not Detected (NotDetected); Staph lugdunensis Not Reported Not Detected (NotDetected); Staph spp. Not Reported Not Detected (NotDetected); Staphaureus Not Reported Not Detected (NotDetected); Staphepi Not Reported Not Detected (NotDetected); Stenmaltophilia Not Reported Not Detected (NotDetected); Strep agal(GrpB) Not Reported Not Detected (NotDetected); Strep pneum Not Reported Not Detected (NotDetected); Strep pyog (GrpA) Not Reported Not Detected (NotDetected); Strep spp Not Reported DETECTED (NotDetected)
[2024-11-29 13:34] LABS: Streptococcus spp DETECTED (NotDetected)
--- NOTE | 2024-11-29 15:24 | Communication Note ---
Date of Service: November 29, 2024 The patient was seen and examined in the emergency room in presence of significant other. He has significant past medical history including chronic atrial fibrillation, history of endocarditis and is status post AVR and is status post MVR, history of CVA, obstructive sleep apnea on CPAP and chronic preaccident heart failure was admitted with fever and noted to have increased troponin on admission. Likely has UTI and also possibility of lower extremity cellulitis and has been put on empirically cefepime and daptomycin. His serial troponins did not show any evidence of ACS and the high troponin is due to demand ischemic pattern. Awaiting urine and blood cultures and the patient remains free from any chest pain and/or palpitation. Appreciate cardiology input and recommendation and his echo did not show any significant change compared with prior echoes. Full progress note will be done tomorrow by the oncoming hospitalist. Dr Susan Frost
[2024-11-29] MEDS: DAPTOmycin 850 MG in SYRINGE 0 ML IV SCH (20:18)
[2024-11-30 06:20] LABS: Hematocrit (blood only) 31.0 % (42.0-52.0); Hemoglobin 9.9 g/dl (14.0-18.0); Immature Granulocytes # (auto) 0.04 K/uL (0.01-0.20); Immature Granulocytes % (auto) 0.5 %; Mean Corpuscular Hemoglobin 29.3 pg (25.0-34.0); Mean Corpuscular Volume 91.7 fL (80.0-100.0); Platelet Count 102 K/uL (130-400); RDW Standard Deviation 55.0 fL (36.4-46.3); Red Blood Count 3.38 M/uL (4.70-6.10); White Blood Count 8.08 K/ul (4.8-10.8)
--- NOTE | 2024-11-30 06:21 | Electrocardiogram Report ---
Test Reason : Blood Pressure : */* mmHG Vent. Rate : 102 BPM Atrial Rate : * BPM P-R Int : * ms QRS Dur : 92 ms QT Int : 360 ms P-R-T Axes : * 258 25 degrees QTcB Int : 469 ms Possible Atrial flutter Right superior axis deviation Inferior infarct (cited on or before 09-Nov-2024) Abnormal ECG When compared with ECG of 09-Nov-2024 13:18, Criteria for Lateral infarct are no longer Present Questionable change in initial forces of Inferior leads ST now depressed in Lateral leads Confirmed by Rudy Tang ([id number]) on 11/30/2024 6:21:03 AM Referred By: REFERRED SELF Confirmed By: Rudy Tang
--- NOTE | 2024-11-30 06:23 | Electrocardiogram Report ---
Test Reason : Blood Pressure : */* mmHG Vent. Rate : 100 BPM Atrial Rate : 100 BPM P-R Int : 140 ms QRS Dur : 104 ms QT Int : 392 ms P-R-T Axes : 65 -66 43 degrees QTcB Int : 509 ms Probable Atrial flutter Left axis deviation Minimal voltage criteria for LVH, may be normal variant ( Busy product ) Prolonged QT Abnormal ECG When compared with ECG of 28-Nov-2024 18:18, QT has lengthened Confirmed by Rudy Tang ([id number]) on 11/30/2024 6:23:12 AM Referred By: REFERRED SELF Confirmed By: Rudy Tang
[2024-11-30 06:40] LABS: Anion Gap 10.0 (3-11); Blood Urea Nitrogen 59.0 mg/dl (6-23); Calcium 8.8 mg/dl (8.6-10.3); Carbon Dioxide 30.0 mmol/L (21-32); Chloride 98.0 mmol/L (98-107); Creatinine Clr Calc Pharmacy 40.2 ml/min; Glucose 100.0 mg/dl (70-99(Fasting)); Magnesium 2.4 mg/dl (1.7-2.4); Potassium 3.4 mmol/L (3.5-5.1); Sodium 138.0 mmol/L (136-145)
--- NOTE | 2024-11-30 07:58 | Cardiology Progress Note ---
Date of Service November 30, 2024 Assessment & Plan (1) Fever: (2) Leukocytosis: (3) Acute UTI: (4) Elevated troponin: (5) S/P MVR (mitral valve replacement): (6) S/P AVR (aortic valve replacement): (7) Pickwickian syndrome: Plan 64 year old man presents with fever and urinary symptoms Consultation - Tachycardia; mild troponin elevation Urinary catheter secondary to retention Catheter recently removed Worsening dysuria post removal Started on Cefipime + Daptomycin Urinary Culture -Pending Hx: * HFPEF * Hx of CHF - 11/2024 - diuresed; sent to rehab with echavarria catheter secondary to urinary retention * S/P MVR (03/2020) * S/P AVR (03/2020) * Endocarditis * Obesity * CVA (septic embolic in the setting of endocarditis) * CKD Stage III * HTN * Hyperlipidemia * Chronic Venous Stasis Plan: * Fevers - resolved * Blood cultures + for Strep; Urine culture + for Proteus * Continue ABX as per primary team * ECHO -completed - no vegetation noted * If bacteremia does not clear - TAYLOR * + Aflutter/fib (chronic) * On DOAC for Afib/flutter * SBP 101 mmHG * HR better controlled * Continue Toprol XL 100 mg po BID * K+ goal 4.5-5 * Kdur 40 meq po BID on 11-30-2024 * Mag++ 2.4 * Check TSH * STOP Jardiance - + UTI * Creat 2 - no aldactone * Troponin elevation - cath at [place] in 2021 - mild, non-obstructive disease; consider nuclear stress as an outpt * 52 min spent addressing challenges, educating and advancing daily plan of care Samson Melo Admission and Anticipated Discharge Date Admission Date: November 29, 2024 Subjective Events Overnight: * None reported * Telemetry - aflutter - ventricular rate -80's; occasional bursts of ventircular rate just above 100 BPM Subjective: * No complaints Review of Systems Review of Systems: All systems reviewed & are unremarkable except as noted in HPI & below Physical Exam Physical Exam: Overweight No elevation in JVP S1S2 2/6 Systolic Murmur CTA B on anterior exam No c/c; trace edema - chronic dermatitis to bilateral LE Results & Data Vital Signs (Past 12 Hours) Vital Signs Temp Pulse Resp BP BP Pulse Ox O2 Del Method 11/30/24 07:17 36.8 C 86 18 101/62 95 Nasal Cannula 11/30/24 04:52 37.3 C 101 H 18 99/65 L 92 CPAP 11/30/24 00:00 37.5 C 103 H 18 100/64 93 Nasal Cannula 11/29/24 22:48 Nasal Cannula, Nasal CPAP 11/29/24 20:20 36.7 C 101 H 18 109/68 98 Nasal Cannula O2 Flow Rate 11/30/24 07:17 1 11/30/24 04:52 11/30/24 00:00 2 11/29/24 22:48 2 11/29/24 20:20 2.0 Laboratory Results Cardiac Enzymes 11/29/24 11/29/24 Range/Units 11:13 16:45 Troponin I High Sens 106.2 H* D 83.2 H* D (0-20) pg/ml CBC 11/30/24 Range/Units 06:03 WBC 8.08 (4.8-10.8) K/ul RBC 3.38 L (4.70-6.10) M/uL Hgb 9.9 L (14.0-18.0) g/dl Hct 31.0 L (42.0-52.0) % Plt Count 102 L (130-400) K/uL Neut # (Auto) 6.22 (1.40-6.50) K/uL Lymph # (Auto) 0.61 L (1.20-3.40) K/uL [place] # (Auto) 0.94 H (0.11-0.59) K/uL Eos # (Auto) 0.26 (0.00-0.50) K/uL Baso # (Auto) 0.01 (0.00-0.20) K/uL Comprehensive Metabolic Panel 11/30/24 Range/Units 06:03 Sodium 138 (136-145) mmol/L Potassium 3.4 L (3.5-5.1) mmol/L Chloride 98 (98-107) mmol/L Carbon Dioxide 30 (21-32) mmol/L BUN 59 H (6-23) mg/dl Creatinine 2.00 H (0.6-1.4) mg/dl Glucose 100 H (70-99(Fasting)) mg/dl Calcium 8.8 (8.6-10.3) mg/dl Intake and Output 07/27/25 07/28/25 07/28/25 22:59 06:59 14:59 Intake Total 490 / 1890 1400 / 1890 Output Total 1950 / 2800 550 / 2800 Balance -1460 / -910 850 / -910 Intake: IV 1000 / 1000 Sodium Chloride 0.9% 1,000 ml @ 1000 / 1000 50 mls/hr IV .Q20H [facility] Rx#: [id number] Oral 490 / 890 400 / 890 Output: Urine 1950 / 2800 550 / 2800 Other: Weight 90.3 kg Weight Measurement Method Built in [facility] Diagnostic Findings ECHOcardiogram: 11-29-2024 * LVEF 65-70% * Bioprosthetic AoV - mean gradient 20 - no change - trace AI * Bioprosthetic MV - mean gradient 4.3 - no significant MR * TR - mild * RVSP 30-40 mmHg Medications Administered Current Inpatient Medications Acetaminophen (Acetaminophen 325 Mg Tab) 650 mg PO Q4H PRN PRN Reason: Pain or Fever Stop: 12/29/24 03:53 Allopurinol (Allopurinol 100 Mg Tab) 100 mg PO DAILY@1100 [facility] Stop: 12/29/24 10:59 Last Admin: 11/29/24 11:19 Dose: 100 mg Apixaban (Apixaban 5 Mg Tablet) 5 mg PO QAM@1100 [facility] Stop: 12/29/24 10:59 Last Admin: 11/29/24 11:19 Dose: 5 mg Aspirin (Aspirin 81 Mg Ectab) 81 mg PO QAM@1100 [facility] Stop: 12/29/24 10:59 Last Admin: 11/29/24 11:20 Dose: 81 mg Empagliflozin (Empagliflozin 10 Mg Tab) 10 mg PO DAILY@1100 [facility] Stop: 12/29/24 10:59 Last Admin: 11/29/24 11:20 Dose: 10 mg Cefepime HCl (Maxipime 2000mg) 2,000 mg in 20 mls @ 5 mls/min IV Q12H [facility]; Protocol Stop: 12/09/24 07:59 Last Admin: 11/29/24 20:18 Dose: 5 mls/min Daptomycin 850 mg/ Syringe 17 mls @ 8.5 mls/min IV Q24H [facility]; Protocol Stop: 12/06/24 19:59 Last Admin: 11/29/24 20:18 Dose: 8.5 mls/min Lactic Acid (Ammonium Lactate 12% Lotion 225 Gm Btl) 1 gm EXT BID [facility] Stop: 12/29/24 08:59 Last Admin: 11/29/24 20:18 Dose: 1 gm Magnesium Oxide (Magnesium Oxide 400 Mg Tab) 400 mg PO DAILY@1100 [facility] Stop: 12/29/24 10:59 Last Admin: 11/29/24 11:20 Dose: 400 mg Metoprolol Succinate (Metoprolol Succ 50mg Ext Rel Tab) 100 mg PO BID@1099,2099 [facility] Stop: 12/29/24 10:59 Last Admin: 11/29/24 20:19 Dose: 100 mg Nitroglycerin (Nitroglycerin Sl 0.4 Mg/Tab Tab) 0.4 mg SL Q5M PRN PRN Reason: Chest Pain Stop: 12/29/24 03:53 Spironolactone (Spironolactone 25 Mg Tab) 25 mg PO DAILY@1099 [facility] Stop: 12/29/24 10:59 Last Admin: 11/29/24 11:19 Dose: 25 mg Torsemide (Torsemide 20 Mg Tab) 40 mg PO DAILY@1099 [facility] Stop: 12/29/24 10:59 Last Admin: 11/29/24 11:21 Dose: 40 mg Vitamin D (Cholecalciferol 125 Mcg (5,000 Units) Tab) 125 mcg PO DAILY@1099 [facility] Stop: 12/29/24 10:59 Last Admin: 11/29/24 11:20 Dose: 125 mcg PG Care Time/CCT Total # of Minutes Spent Total Time Spent with Patient: Total time spent is greater than 50% in coordination of care (as documented) at patient's floor/unit and/or counseling patient: Coding Level of Care Code 10931 SUB INP/OBS CARE 3/50MIN Diagnoses Fever R50.9 Fever type: unspecified Leukocytosis D72.829 Leukocytosis type: unspecified Acute UTI N39.0 Elevated troponin R79.89 S/P MVR (mitral valve replacement) Z95.2 S/P AVR (aortic valve replacement) Z95.2 Pickwickian syndrome E66.2 (1) Fever Fever type: unspecified Qualified Code(s): R50.9 - Fever, unspecified (2) Leukocytosis Leukocytosis type: unspecified Qualified Code(s): D72.829 - Elevated white blood cell count, unspecified
[2024-11-30] MEDS: POTASSIUM CHLORIDE CRTAB 20 MEQ TABCR PO STA (08:02)
--- NOTE | 2024-11-30 10:57 | Hospitalist Progress Note ---
Date of Service November 30, 2024 Assessment & Plan (1) Severe sepsis with acute organ dysfunction: (2) Demand ischemia: (3) Streptococcal bacteremia: (4) Urinary tract infection due to Proteus: (5) Chronic atrial fibrillation: (6) Hypokalemia: (7) Chronic hypoxic respiratory failure, on home oxygen therapy: (8) Chronic heart failure with preserved ejection fraction: (9) Chronic atrial fibrillation: Plan Patient 64-year-old gentleman presented with severe sepsis with organ dysfunction as evidenced by demand ischemia due to streptococcal bacteremia source most likely his lower extremity the cellulitis. Additionally patient with a Proteus UTI. Patient slowly improving Echocardiogram shows no definitive endocarditis Surveillance blood cultures to be drawn today Narrow antibiotics to cefepime only, discontinue daptomycin Consult infectious disease for streptococcal bacteremia Replace potassium Continue chronic cardiac meds for his congestive heart failure and atrial fibrillation, continue anticoagulation Monitor electrolytes Monitor renal function at bedside and updated Admission and Anticipated Discharge Date Admission Date: November 29, 2024 Subjective Patient still feeling quite fatigued and wiped out but improved compared to admission. No chest pain or shortness of breath Physical Exam Physical Exam: Constitutional: Alert, nontoxic, no acute distress HEENT: Mucous membranes moist. Lungs: Decreased breath sounds, prolonged, no wheezes CV: S1-S2, regular, systolic murmur Abdomen: Soft, nontender, nondistended Extremities: Some lower extremity edema, chronic lower extremity dermatitis with thickened skin and flaky skin with some mild erythema Neuro: No focal deficits Psych: Cooperative, normal mood Results & Data Results & Data Vital Signs (Past 12 Hours) Vital Signs Temp Pulse Pulse Resp BP BP Pulse Ox 11/30/24 08:00 102 H 11/30/24 07:17 36.8 C 86 18 101/62 95 11/30/24 04:52 37.3 C 101 H 18 99/65 L 92 11/30/24 00:00 37.5 C 103 H 18 100/64 93 O2 Del Method O2 Flow Rate 11/30/24 08:00 11/30/24 07:17 Nasal Cannula 1 11/30/24 04:52 CPAP 11/30/24 00:00 Nasal Cannula 2 Diagnostic Findings Reviewed imaging, laboratory and diagnostic studies. Pertinent findings as be low. WBCs 8.0 Hemoglobin 9.9, stable Potassium 3.4 Creatinine 2.0, stable Blood culture growing staph Streptococcus Urine culture growing Proteus
[2024-11-30] MEDS: MAGNESIUM HYDROXIDE SUSP 30 ML UDC PO PRN (11:03)
[2024-11-30] MEDS: POTASSIUM CHLORIDE CRTAB 20 MEQ TABCR PO SCH (11:03)
--- NOTE | 2024-11-30 14:31 | Infectious Disease Consult ---
Date of Service November 30, 2024 Telehealth Information I performed this visit using a real-time telehealth connection between my location and the patients location ([facility]). After connecting through interactive tele-video, patient was identified by name and date of and/or wristband check.Patient (or authorized healthcare payroll representative) was informed that this was a telemedicine visit and it was being conducted confidentially over secure lines. My office door was closed and no one else was present in the room with me.Patient (or authorized healthcare payroll representative) provided consent to proceed with the visit, expressed an understanding of privacy and security of the telemedicine visit, and gave permission to have a hospital payroll representative in the room in order to assist with the visit and to conduct portions of the visit, as needed. I informed the patient (or authorized healthcare payroll representative) that I reviewed their record and presented the opportunity for them to ask any questions regarding the visit today. The patient agreed to participate. Assessment & Plan (1) Streptococcal bacteremia: Plan: Assessment: Streptococcus anginosus bacteremia of unclear etiology R/o UTI w/ P mirabilis USHA on CKD Recent echavarria use (removed) Hx of endocarditis s/p AVR and MVR Hx of allergy to amox (rash) Recommendations: - continue cefepime to cover both Strep anginosus and P mirabilis - obtain TAYLOR to better evaluate the bioprosthetic valves - Repeat blood cultures (2 sets) - Will continue to follow The source of the Strep anginosus is unclear as this does not appear to be from the urinary tract: P mirabilis is discovered from the urine, instead. He may have two different infectious processes (ie., Strep bacteremi and GNR UTI) vs one (ie., Strep bacteremia). During this patient encounter, one or more of the following was provided in addition to my in person visit: disease transmission risk assessment and mitigation; public health investigation, analysis, and testing; and/or complex antimicrobial therapy counseling and treatment. I spent a total of 82 minutes coordinating, documenting, and providing care for this patient excluding time spent in the performance of separately billed services or time spent by another provider/QHP. History of Present Illness History of Present Illness This is a 64y/o male (Wilian) w/ hx of VENUS on CPAP, chronic R-sided HF, HTN, chronic A fib, CKD stage III, chronic venous stasis dermatitis, endocarditis s/p AVR and MVR (02/2020) and CVA, ambulating w/ a walker at baseline, who presented w/ [facility] for new onset fever and disorientation w/ generalized weakness (the symptoms lasted just a few hours before going to ED on Saturday). Per chart review the patient had echavarria placed for diuresis for HF, and the echavarria was malpositioned w/ pain, requiring removal of the echavarria (about 1 week ago): he had pain w/ urination after the event. Fever was noted on admission w/ leukocytosis. Strep anginosus was found on blood culture and 2 strains of P mirabilis in urine culture. He is feeling well overall but still weak. He has moderate to sever pain in b/l knees but that is chronic: nothing new. No diarrhea, n/v, abd pain, joint swelling, open wound, heachache, back pain, coughing, or chest pain. Stone, nursing staff, assisted during the encounter. Allergies Allergy/AdvReac Type Severity Reaction Status Date / Time amoxicillin Allergy Intermediate Rash Verified 01/22/24 06:20 cyclobenzaprine AdvReac Intermediate Rash Verified 01/22/24 06:20 wheat AdvReac Fatigued Unverified 11/28/24 22:46 Home Medications Medication Instructions Recorded Confirmed Type apixaban 5 mg tablet 5 mg PO QAM 12/05/23 11/28/24 History aspirin 81 mg capsule 81 mg PO QAM 12/05/23 11/28/24 History cholecalciferol (vitamin D3) 125 125 mcg PO DAILY 12/05/23 11/28/24 History mcg (5,000 unit) tablet (Vitamin D3) coenzyme Q10 100 mg capsule 100 mg PO DAILY 12/05/23 11/28/24 History (CoQ-10) magnesium oxide 400 mg (241.3 mg 400 mg PO DAILY #30 tabs 12/12/23 11/28/24 Rx magnesium) tablet spironolactone 25 mg tablet 25 mg PO DAILY 11/04/24 11/28/24 History empagliflozin 10 mg tablet 10 mg PO DAILY #30 tabs 11/12/24 11/28/24 Rx (Jardiance) torsemide 20 mg tablet 40 mg (2 x 20 mg) PO QAM #30 tabs 11/12/24 11/28/24 Rx allopurinol 100 mg tablet 100 mg PO DAILY 11/28/24 11/28/24 History ammonium lactate 12 % lotion 1 applic topical BID 11/28/24 11/28/24 History metoprolol succinate 100 mg 100 mg PO BID 11/28/24 11/28/24 History tablet,extended release 24 hr Patient History Medical History Cerebellar ataxia (2020) Bilateral cataracts BPH (benign prostatic hyperplasia) Polyuria History of restless legs syndrome Gait instability since stroke, has a balance problem, uses a cane Hx of vertigo Chronic atrial fibrillation no caridoversion, follows with Hannah (12/12/23), takes eliquis Hx of basal cell carcinoma Hx of bacteremia (2019) USHA (acute kidney injury) (12/2023) recently hospitalized at [facility] "to drain fluid from my body" and was given IV lasix, which pt. 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, unsure of cause Cirrhosis of liver Dyspnea on exertion History of asthma Acute on chronic right-sided heart failure History of embolic stroke (2020) loss of balance, MRI showed new emboli in brain, currently has balance problems, no longer follows with neuro - takes eliquis Acute hypoxemic respiratory failure (03/01/20) hx Abnormal LFTs Benign essential hypertension Obstructive sleep apnea cpap with 2L oxygen - compliant Surgical History Hx of cataract extraction left Hx of basal cell carcinoma excision Hx of mitral valve replacement (02/2020) PSH- follows with Hannah at [facility] (12/12/23) Hx of aortic valve replacement (02/2020) PS History of vasectomy Family History Father Heart disease Hypertension, Onset Age: 50 Kidney disease, Onset Age: 30 Kidney stones as young man Myocardial infarction Passed in 2006 with heart attack age 78 Brother Asthma Prostate cancer, Onset Age: 61 Treated Radiation and hormonal. Cancer younger brother, skin cancer Mother Cancer Skin cancer Brother Cancer skin cancer Denies family history of Ovarian cancer Diabetes Breast cancer Lung cancer Colorectal cancer Stroke Social History Smoking Status: Never smoker Tobacco Type: Cigarettes Second Hand Exposure: No; Do You Dip or Chew Tobacco: No; Hx Alcohol Use: No Hx Substance Use: No Preferred Language: Beninese Communication Ability: Effective Communication Ability Comment: [place] Hearing Ability: Hard of Hearing Saw Cleaner Required: No Beliefs That Will Affect Care: None marital status: Current Living Situation: Spouse current occupational status: employed 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 How many Children do You have: 0 How many Children do You have Comment: 1 step child Other Information That Helps Us Care for You: No Feels Safe at Home: Yes Safety Concerns: Feels Safe At This Time Childhood Exposure to Second-Hand Smoke: No Seatbelt Use: always Sunscreen Use: Yes Assistive Devices: Glasses, Oxygen - Continuous and Walker Review of Systems as HPI and all others negative Physical Exam Gen: no acute distress Lungs: breathing comfortably on NC Neuro: alert, awake, oriented x3, conversant Results & Data Vital Signs (Past 12 Hours) Vital Signs Temp Pulse Pulse Pulse Resp BP BP 11/30/24 11:27 36.6 C 104 H 20 107/64 11/30/24 08:00 102 H 11/30/24 07:17 36.8 C 86 18 101/62 11/30/24 04:52 37.3 C 101 H 18 99/65 L Pulse Ox O2 Del Method O2 Flow Rate 11/30/24 11:27 95 Nasal Cannula 1 11/30/24 08:00 11/30/24 07:17 95 Nasal Cannula 1 11/30/24 04:52 92 CPAP Laboratory Results WBC 17.8K ->-> 8K H 9.9 Plt 102K Cr 2 (CrCl 40.2) Troponin 191 ->-> 83 ProBNP 122 Blood cx (11/28): Streptococcus anginosus (2 of 4, the same set) UA (11/28): LE 2+, WBC 21-50 U cx (11/28): P mirabilis x2 RPPC (11/28): negative CXR: CHF with small right pleural effusion, improved. CT head: unremarkable CT A/P: 1. Cirrhosis. No visualized mass. 2. Cholelithiasis. No ultrasound evidence of acute cholecystitis. 3. Cardiomegaly. 4. Small right pleural effusion. TTE (11/29): no mention of vegetation
[2024-11-30] MEDS: APIXABAN 5 MG TABLET PO SCH (20:42)
[2024-11-30] MEDS: METOPROLOL SUCC 50MG EXT REL TAB PO SCH (21:25)
[2024-12-01] MEDS: ACETAMINOPHEN 1,000 MG/100 ML VIAL IV STA (01:12)
[2024-12-01 07:06] LABS: Anion Gap 7.0 (3-11); Blood Urea Nitrogen 64.0 mg/dl (6-23); Calcium 9.1 mg/dl (8.6-10.3); Carbon Dioxide 30.0 mmol/L (21-32); Chloride 100.0 mmol/L (98-107); Creatinine Clr Calc Pharmacy 38.5 ml/min; Glucose 92.0 mg/dl (70-99(Fasting)); Potassium 4.4 mmol/L (3.5-5.1); Sodium 137.0 mmol/L (136-145)
[2024-12-01] MEDS: TORSEMIDE 20 MG TAB PO SCH (08:26)
[2024-12-01] MEDS: MAGNESIUM OXIDE 400 MG TAB PO SCH (08:26)
[2024-12-01] MEDS: CHOLECALCIFEROL 125 MCG (5,000 UNITS) TAB PO SCH (08:27)
[2024-12-01] MEDS: ASPIRIN 81 MG ECTAB PO SCH (08:27)
[2024-12-01] MEDS: SPIRONOLACTONE 25 MG TAB PO SCH (08:29)
[2024-12-01] MEDS ORDERED: APIXABAN 5 MG TABLET PO SCH (09:00)
--- NOTE | 2024-12-01 09:03 | Cardiology Progress Note ---
Date of Service December 01, 2024 Assessment & Plan (1) Fever: (2) Leukocytosis: (3) Acute UTI: (4) Elevated troponin: (5) S/P MVR (mitral valve replacement): (6) S/P AVR (aortic valve replacement): (7) Pickwickian syndrome: Plan 64 year old man who presented to the ER with fevers and urinary symptoms. Urine culture positive Proteus mirabilis. Preliminary blood cultures positive Streptococcus anginosus. Plan: -Fevers resolved. -Continues on Cefepime per primary team/ID team. additional blood cultures pending. -ID has been consulted and recommends moving forward with TAYLOR -Patient reports that he has had a recent tooth infection/abscess; however, the dates of the initial infection seem to vary. Patient states that the infection actually occurred over a year ago, but extraction took place in jan 2024 with some prolonged issues. -Case discussed with Dr. Young with regards to moving forward with a TAYLOR to ensure no concerns for vegetation on his bioprosthetic valves. Will make NPO after midnight in preperation. -VS stable. -Continue Toprol xl 100mg PO BID. remains A-flutter on telemetry with no acute events overnight. -Continue Torsemide and Spironolactone, euvolemic on exam -Continue ASA 81mg and Eliquis. Denies any bleeding concerns. Case has been discussed with Dr. Young. Further recommendations regarding plan of care as per his assessment. I spent a total of 30 minutes on the date of service in preparation, delivery, documentation of the care provided to the patient excluding any time spent in the performance of separately billed services. SANG Alvarez [facility] Cardiology [facility] [place] Admission and Anticipated Discharge Date Admission Date: November 29, 2024 Supervising Physician Co-Signing Physician Notes Attending attestation: Case reviewed with the advanced practitioner. I have personally performed a history and physical examination on the patient. I have reviewed the advanced practitioner's documentation on the date of service referenced in note, and I agree with, and take responsibility for the plan of care. Patient has a history of [place] mitral valve endocarditis along with severe aortic valve stenosis with MSSA bacteremia, February 2020 prompting cardiac surgery at [facility] in March 2020 with placement of a bioprosthetic mitral valve and a bioprosthetic aortic valve. He also had a pericardial patch of the mitral valve annulus. His perioperative course was complicated by septic emboli to the brain. Patient with noted Streptococcus bacteremia, perhaps related to chronic venous stasis dermatitis of his lower legs which are mildly erythematous but improved compared to my most recent visit with him in the hospital at the time of his previous admission. He had a dental extraction performed in January,. At present he notes dysuria and subjective fever have improved. ID input noted and appreciated. Repeat blood cultures have been obtained with no growth thus far. Continue cefepime, aspirin, Eliquis, torsemide, metoprolol, spironolactone. Informed consent for transesophageal echocardiogram obtained. Consent form placed on his chart. With the patient's permission, I updated his spouse by phone. Questions answered to satisfaction. I spent a total of 25 minutes coordinating, documenting, and providing care for this patient excluding time spent in the performance of separately billed services or time spent by another provider. Armin Young, Subjective 12/01/2024: Patient seen and examined in follow up today. Feeling slightly better. VS stable, remains afebrile. Patient is out of bed in a chair with spouse visiting. Reports near resolution of urinary symptoms. Labs, vitals, diagnostics, telemetry and documentation reviewed. Telemetry reviewed showing A-flutter rates 70-108 bpm. Does not sustain elevated rates for prolonged period of time. Review of Systems Review of Systems: All systems reviewed & are unremarkable except as noted in HPI & below Physical Exam Constitutional: well developed, well nourished and + overweight; no acute distress and not ill appearing Neck: normal visual inspection and trachea midline Respiratory: normal respiratory effort, lungs clear to auscultation Cardiovascular: Rate/Rhythm: + irregularly irregular Heart Sounds: normal S1, normal S2 and + murmur (+1/6 systolic) Vessels: dorsalis pedis pulses present; no JVD Skin: normal turgor Psychiatric: A+Ox3, euthymic affect Results & Data Vital Signs (Past 12 Hours) Vital Signs Temp Pulse Resp BP Pulse Ox O2 Del Method O2 Flow Rate 12/01/24 07:26 36.7 C 71 18 97/63 L 99 Nasal Cannula 4 12/01/24 04:21 78 18 110/66 99 CPAP 11/30/24 21:55 37.2 C 86 18 100/63 96 Nasal Cannula Laboratory Results Comprehensive Metabolic Panel 12/01/24 Range/Units 05:59 Sodium 137 (136-145) mmol/L Potassium 4.4 D (3.5-5.1) mmol/L Chloride 100 (98-107) mmol/L Carbon Dioxide 30 (21-32) mmol/L BUN 64 H (6-23) mg/dl Creatinine 2.09 H (0.6-1.4) mg/dl Glucose 92 (70-99(Fasting)) mg/dl Calcium 9.1 (8.6-10.3) mg/dl Intake and Output 11/30/24 12/01/24 12/01/24 22:59 06:59 14:59 Intake Total 100 / 460 Output Total 500 / 1525 400 / 400 Balance -400 / -1065 -400 / -400 Intake: IV 100 / 100 Acetaminophen 1,000 mg In 100 100 / 100 ml @ 400 mls/hr IV NOW STA Rx#: [id number] Output: Urine 500 / 925 400 / 400 Other: Weight 90 kg Weight Measurement Method Built in [facility] Coding [place] [address] SUB INP/OBS CARE 3/50MIN Patient Type Established Diagnoses Fever R50.9 Fever type: unspecified Leukocytosis D72.829 Leukocytosis type: unspecified Acute UTI N39.0 Elevated troponin R79.89 S/P MVR (mitral valve replacement) Z95.2 S/P AVR (aortic valve replacement) Z95.2 Pickwickian syndrome E66.2 Time Spent (min) 55 Comment 30 minutes were spent by SANG Pinedo, [address] Young (1) Fever Fever type: unspecified Qualified Code(s): R50.9 - Fever, unspecified (2) Leukocytosis Leukocytosis type: unspecified Qualified Code(s): D72.829 - Elevated white blood cell count, unspecified
[2024-12-01] MEDS ORDERED: TORSEMIDE 20 MG TAB PO SCH (11:00)
--- NOTE | 2024-12-01 12:16 | Hospitalist Progress Note ---
Date of Service December 01, 2024 Assessment & Plan (1) Severe sepsis with acute organ dysfunction: (2) Demand ischemia: (3) Streptococcal bacteremia: (4) Urinary tract infection due to Proteus: (5) Chronic atrial fibrillation: (6) Hypokalemia: (7) Chronic hypoxic respiratory failure, on home oxygen therapy: (8) Chronic heart failure with preserved ejection fraction: (9) Chronic renal failure (CRF), stage 3b: (10) History of aortic valve replacement: (11) History of mitral valve replacement: Plan Patient significantly improved from streptococcal bacteremia and Proteus UTI. Continue cefepime Reviewed infectious disease recommendations Follow surveillance blood cultures. Reviewed cardiology recommendations that would consider TAYLOR only if bacteremia does not clear. Anticipate patient will need a prolonged course of IV antibiotics, not definitive clearly clear where streptococcal bacteremia came from. High suspicion it was from his lower extremities will need final recommendations from infectious disease Anticipate patient will need PICC line when surveillance blood cultures sterile Therapies Continue other outpatient medications Patient significantly improved can transition to [facility] Case management aware of probable need for home IV antibiotics. Voicemail left for patient's Admission and Anticipated Discharge Date Admission Date: November 29, 2024 Subjective Patient feeling significantly improved. Feels ready to go home. However, understands need for ongoing treatment for his bacteremia. Physical Exam Physical Exam: Constitutional: Alert, nontoxic HEENT: Mucous membranes moist. Lungs: Clear to auscultation, decreased, no wheezes rales or rhonchi CV: S1-S2, irregular, systolic murmur Abdomen: Soft, nontender, nondistended Extremities: No significant edema, chronic dermatitis lower extremities, ruborous changes seem to be improved, swelling decreased Neuro: No focal deficits Psych: Cooperative, normal mood Results & Data Results & Data Vital Signs (Past 12 Hours) Vital Signs Temp Pulse Resp BP Pulse Ox O2 Del Method O2 Flow Rate 12/01/24 11:13 36.7 C 91 H 18 107/68 97 Nasal Cannula 12/01/24 08:00 Nasal Cannula 2 12/01/24 07:26 36.7 C 71 18 97/63 L 99 Nasal Cannula 4 12/01/24 04:21 78 18 110/66 99 CPAP Diagnostic Findings Reviewed imaging, laboratory and diagnostic studies. Pertinent findings as below. Surveillance blood cultures pending Electrolytes stable Creatinine 2.09, essentially baseline
--- NOTE | 2024-12-01 15:29 | Infectious Disease Progress Nt ---
Date of Service December 01, 2024 Telehealth Information non-billble note. Assessment & Plan (1) Streptococcal bacteremia: Plan: Given, the susceptibility of the proteus, stop cefepime and start ampicillin to cover both Strep and Proteus. (2) UTI (urinary tract infection): Results & Data Vital Signs (Past 12 Hours) Vital Signs Temp Pulse Resp BP Pulse Ox O2 Del Method O2 Flow Rate 12/01/24 11:13 36.7 C 91 H 18 107/68 97 Nasal Cannula 12/01/24 08:00 Nasal Cannula 2 12/01/24 07:26 36.7 C 71 18 97/63 L 99 Nasal Cannula 4 12/01/24 04:21 78 18 110/66 99 CPAP
[2024-12-01] MEDS ORDERED: cefTRIAXone SODIUM 2,000 MG/50 ML BAG IV SCH (17:00)
[2024-12-02 06:13] LABS: Hematocrit (blood only) 32.8 % (42.0-52.0); Hemoglobin 10.2 g/dl (14.0-18.0); Mean Corpuscular Hemoglobin 28.8 pg (25.0-34.0); Mean Corpuscular Volume 92.7 fL (80.0-100.0); Platelet Count 128 K/uL (130-400); RDW Standard Deviation 54.4 fL (36.4-46.3); Red Blood Count 3.54 M/uL (4.70-6.10); White Blood Count 6.10 K/ul (4.8-10.8)
[2024-12-02 06:31] LABS: Anion Gap 8.0 (3-11); Blood Urea Nitrogen 64.0 mg/dl (6-23); Calcium 9.2 mg/dl (8.6-10.3); Carbon Dioxide 29.0 mmol/L (21-32); Chloride 101.0 mmol/L (98-107); Creatinine Clr Calc Pharmacy 34.6 ml/min; Glucose 111.0 mg/dl (70-99(Fasting)); Magnesium 2.4 mg/dl (1.7-2.4); Potassium 4.5 mmol/L (3.5-5.1); Sodium 138.0 mmol/L (136-145)
[2024-12-02] MEDS ORDERED: LIDOCAINE 2% 2 ML VIAL/AMP(20MG/ML) INFIL ONE (06:54)
[2024-12-02] MEDS ORDERED: PROPOFOL IV EMULSION 10 MG/ML 20 ML VIAL IV ONE ×2 (06:54→08:55)
--- NOTE | 2024-12-02 07:11 | History & Physical Bridge Note ---
Date of Service December 02, 2024 History & Physical Bridge Note I have examined the patient, reviewed the History & Physical and in the interval since the performance of the History & Physical I have noted the following changes of clinical significance: no changes noted
--- NOTE | 2024-12-02 07:16 | Anesthesiology Consultation ---
Date of Service December 02, 2024 Assessment & Plan (1) Encounter for pre-operative examination: Chart Review Chart Review: Acceptable Risk for Surgery History Surgery Operation Date: 12/02/24 07:15 Proposed Procedures p Transesophageal Echo w/Anesthesia - Armin Young DO Height/Weight Height: 5 ft 8 in Weight: 90 kg Allergies Allergy/AdvReac Type Severity Reaction Status Date / Time amoxicillin Allergy Intermediate Rash Verified 01/22/24 06:20 cyclobenzaprine AdvReac Intermediate Rash Verified 01/22/24 06:20 wheat AdvReac Fatigued Unverified 11/28/24 22:46 Medications Home Medications Medication Instructions Recorded Confirmed Last Taken apixaban 5 mg tablet 5 mg PO QAM 12/05/23 11/28/24 11/28/24 aspirin 81 mg capsule 81 mg PO QAM 12/05/23 11/28/24 11/28/24 cholecalciferol (vitamin D3) 125 125 mcg PO DAILY 12/05/23 11/28/24 11/28/24 mcg (5,000 unit) tablet (Vitamin D3) coenzyme Q10 100 mg capsule 100 mg PO DAILY 12/05/23 11/28/24 11/28/24 (CoQ-10) magnesium oxide 400 mg (241.3 mg 400 mg PO DAILY #30 tabs 12/12/23 11/28/24 11/28/24 magnesium) tablet spironolactone 25 mg tablet 25 mg PO DAILY 11/04/24 11/28/24 11/28/24 empagliflozin 10 mg tablet 10 mg PO DAILY #30 tabs 11/12/24 11/28/24 11/28/24 (Jardiance) torsemide 20 mg tablet 40 mg (2 x 20 mg) PO QAM #30 tabs 11/12/24 11/28/24 11/28/24 allopurinol 100 mg tablet 100 mg PO DAILY 11/28/24 11/28/24 11/28/24 ammonium lactate 12 % lotion 1 applic topical BID 11/28/24 11/28/24 11/28/24 metoprolol succinate 100 mg 100 mg PO BID 11/28/24 11/28/24 11/28/24 tablet,extended release 24 hr Active Medications Generic Name Dose Route Start Last Admin Trade Name Freq PRN Reason Stop Dose Admin Allopurinol 100 mg 12/01/24 09:00 12/01/24 08:27 Allopurinol 100 Mg Tab PO 12/31/24 08:59 100 mg DAILY PIPER Administration Apixaban 5 mg 11/30/24 21:00 12/01/24 20:27 Apixaban 5 Mg Tablet PO 12/30/24 20:59 5 mg BID PIPER Administration Aspirin 81 mg 12/01/24 09:00 12/01/24 08:27 Aspirin 81 Mg Ectab PO 12/31/24 08:59 81 mg QAM PIPER Administration Cefazolin Sodium 2,000 mg in 15 mls @ 3.75 mls/min 12/01/24 17:00 12/02/24 01:13 Ancef 2000mg IV 12/15/24 16:59 3.75 mls/min Q8H PIPER Administration Protocol Lactic Acid 1 gm 11/29/24 09:00 12/01/24 20:27 Ammonium Lactate 12% Lotion 225 Gm Btl EXT 12/29/24 08:59 1 gm BID PIPER Administration Magnesium Hydroxide 30 ml 11/30/24 10:41 12/01/24 08:25 Magnesium Hydroxide Susp 30 Ml Udc PO 12/30/24 10:40 30 ml BID PRN Administration Constipation Magnesium Oxide 400 mg 12/01/24 09:00 12/01/24 08:26 Magnesium Oxide 400 Mg Tab PO 12/31/24 08:59 400 mg DAILY PIPER Administration Metoprolol Succinate 100 mg 11/30/24 21:00 12/01/24 20:27 Metoprolol Succ 50mg Ext Rel Tab PO 12/30/24 20:59 100 mg BID PIPER Administration Spironolactone 25 mg 12/01/24 09:00 12/01/24 08:29 Spironolactone 25 Mg Tab PO 12/31/24 08:59 25 mg DAILY PIPER Administration Torsemide 40 mg 12/01/24 09:00 12/01/24 08:26 Torsemide 20 Mg Tab PO 12/31/24 08:59 40 mg DAILY PIPER Administration Vitamin D 125 mcg 12/01/24 09:00 12/01/24 08:27 Cholecalciferol 125 Mcg (5,000 Units) Tab PO 12/31/24 08:59 125 mcg DAILY PIPER Administration Past Medical History Medical History Cerebellar ataxia (2020) Bilateral cataracts BPH (benign prostatic hyperplasia) Polyuria History of restless legs syndrome Gait instability since stroke, has a balance problem, uses a cane Hx of vertigo Chronic atrial fibrillation no caridoversion, follows with Hannah (12/12/23), takes eliquis Hx of basal cell carcinoma Hx of bacteremia (2019) USHA (acute kidney injury) (12/2023) recently hospitalized at [facility] "to drain fluid from my body" and was given IV lasix, which pt. 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, unsure of cause Cirrhosis of liver Dyspnea on exertion History of asthma Acute on chronic right-sided heart failure History of embolic stroke (2020) loss of balance, MRI showed new emboli in brain, currently has balance problems, no longer follows with neuro - takes eliquis Acute hypoxemic respiratory failure (03/01/20) hx Abnormal LFTs Benign essential hypertension Obstructive sleep apnea cpap with 2L oxygen - compliant Past Family History Family History Father Heart disease Hypertension, Onset Age: 50 Kidney disease, Onset Age: 30 Kidney stones as young man Myocardial infarction Passed in 2006 with heart attack age 78 Brother Asthma Prostate cancer, Onset Age: 61 Treated Radiation and hormonal. Cancer younger brother, skin cancer Mother Cancer Skin cancer Brother Cancer skin cancer Denies family history of Ovarian cancer Diabetes Breast cancer Lung cancer Colorectal cancer Stroke Past Surgical History Surgical History Hx of cataract extraction left Hx of basal cell carcinoma excision Hx of mitral valve replacement (02/2020) PSH- follows with Hannah at [facility] (12/12/23) Hx of aortic valve replacement (02/2020) PSH History of vasectomy Social History Smoking Status: Never smoker Do You Dip or Chew Tobacco: No Hx Alcohol Use: No Alcohol type: beer alcohol intake frequency: 0-2 drinks per day Hx Substance Use: No substance use type: does not use Physical Exam Vital Signs Last Vital Signs Temp 37.0 C 12/02/24 03:18 Pulse 81 12/02/24 07:06 Resp 18 12/02/24 07:06 BP 104/62 12/02/24 07:06 Pulse Ox 98 12/02/24 07:06 O2 Del Method Nasal Cannula 12/02/24 07:06 O2 Flow Rate 2 12/02/24 07:06 Testing Laboratory Results 12/02/24 05:47 12/02/24 05:47 PT 11.5 Seconds (9.0-12.0) 11/28/24 18:36 INR 1.1 (0.9-1.1) 11/28/24 18:36 Urine Color Yellow 11/28/24 20:35 Urine Appearance Clear (Clear) 11/28/24 20:35 Urine pH 6.0 (4.5-7.5) 11/28/24 20:35 Ur Specific [place] 1.013 (1.000-1.030) 11/28/24 20:35 Urine Protein 1+ (Negative) H 11/28/24 20:35 Urine Glucose (UA) Trace (Negative) H 11/28/24 20:35 Urine Ketones Trace (Negative) H 11/28/24 20:35 Urine Nitrite Negative (Negative) 11/28/24 20:35 Ur Leukocyte Esterase 2+ (Negative) H 11/28/24 20:35 Urine WBC (Auto) 21-50 /hpf (0-5) H 11/28/24 20:35 Urine RBC (Auto) 0-2 /hpf (0-2) 11/28/24 20:35 U Hyaline Cast (Auto) 3-5 /lpf (0-2) H 11/28/24 20:35 U Epithel Cells (Auto) 0-2 /hpf (0-2) 11/28/24 20:35 Urine Bacteria (Auto) None Seen (None Seen) 11/28/24 20:35 11/30/24 14:04 Aerobic Blood Culture - Preliminary Blood No growth in Aerobic bottle after 24 hours. Anaerobic Blood Culture - Preliminary No growth in Anaerobic bottle after 24 hours. 11/30/24 12:52 Aerobic Blood Culture - Preliminary Blood No growth in Aerobic bottle after 24 hours. Anaerobic Blood Culture - Preliminary No growth in Anaerobic bottle after 24 hours. 11/28/24 20:35 Urine Culture - Final Urine,Clean Catch Proteus mirabilis Proteus mirabilis#2 11/28/24 18:36 Aerobic Blood Culture - Preliminary Blood Streptococcus anginosus Anaerobic Blood Culture - Preliminary Streptococcus anginosus 11/28/24 18:52 Aerobic Blood Culture - Preliminary Blood Streptococcus anginosus Anaerobic Blood Culture - Final Echocardiogram Date: 11/29/24 EF: 65-70% LV Function: normal aortic valve replaced - mean grad 20mmHg mitral valve replaced - normal gradients
--- NOTE | 2024-12-02 07:58 | Cardiology Progress Note ---
Date of Service December 02, 2024 Assessment & Plan Plan kyle has a history of saxman mitral valve endocarditis along with severe aortic valve stenosis with MSSA bacteremia, February 2020 prompting cardiac surgery at [facility] in March 2020 with placement of a biopro sthetic mitral valve and a bioprosthetic aortic valve. He also had a pericardial patch of the mitral valve annulus. His perioperative course was complicated by septic emboli to the brain. Patient with noted Streptococcus bacteremia, perhaps related to chronic venous stasis dermatitis of his lower legs which are mildly erythematous but improved compared to my most recent visit with him in the hospital at the time of his previous admission. He had a dental extraction performed in January,. At present he notes dysuria and subjective fever have improved. ID input noted and appreciated. Repeat blood cultures have been obtained with no growth thus far. Continue cefepime, aspirin, Eliquis, torsemide, metoprolol, spironolactone. Informed consent for transesophageal echocardiogram obtained. Consent form placed on his chart. With the patient's permission, I updated his spouse by phone. Questions answered to satisfaction. I spent a total of 25 minutes coordinating, documenting, and providing care for this patient excluding time spent in the performance of separately billed services or time spent by another provider. Admission and Anticipated Discharge Date Admission Date: November 29, 2024 Subjective Events Overnight: Subjective: Review of Systems Review of Systems: All systems reviewed & are unremarkable except as noted in HPI & below Results & Data Vital Signs (Past 12 Hours) Vital Signs Temp Pulse Resp BP Pulse Ox O2 Del Method O2 Flow Rate 12/02/24 07:06 81 18 104/62 98 Nasal Cannula 2 12/02/24 07:06 79 18 104/62 99 Nasal Cannula 2 12/02/24 03:18 37.0 C 100 H 18 107/70 99 CPAP 12/01/24 22:54 36.7 C 101 H 18 112/71 93 Nasal Cannula 12/01/24 20:15 36.7 C 92 H 18 104/68 98 Nasal Cannula Laboratory Results CBC 12/02/24 Range/Units 05:47 WBC 6.10 (4.8-10.8) K/ul RBC 3.54 L (4.70-6.10) M/uL Hgb 10.2 L (14.0-18.0) g/dl Hct 32.8 L (42.0-52.0) % Plt Count 128 L (130-400) K/uL Comprehensive Metabolic Panel 12/02/24 Range/Units 05:47 Sodium 138 (136-145) mmol/L Potassium 4.5 (3.5-5.1) mmol/L Chloride 101 (98-107) mmol/L Carbon Dioxide 29 (21-32) mmol/L BUN 64 H (6-23) mg/dl Creatinine 2.32 H (0.6-1.4) mg/dl Glucose 111 H (70-99(Fasting)) mg/dl Calcium 9.2 (8.6-10.3) mg/dl Intake and Output 12/01/24 12/02/24 12/02/24 22:59 06:59 14:59 Intake Total 300 / 1450 Output Total 650 / 2401 450 / 2401 Balance -350 / -951 -450 / -951 Intake: Oral 300 / 1450 Output: Urine 650 / 2400 450 / 2400 Other: Weight 90 kg Patient Weight 12/03/24 06:59 Weight 90 kg Medications Administered Current Inpatient Medications Acetaminophen (Acetaminophen 325 Mg Tab) 650 mg PO Q4H PRN PRN Reason: Pain or Fever Stop: 12/29/24 03:53 Allopurinol (Allopurinol 100 Mg Tab) 100 mg PO DAILY [facility] Stop: 12/31/24 08:59 Last Admin: 12/01/24 08:27 Dose: 100 mg Apixaban (Apixaban 5 Mg Tablet) 5 mg PO BID [facility] Stop: 12/30/24 20:59 Last Admin: 12/01/24 20:27 Dose: 5 mg Aspirin (Aspirin 81 Mg Ectab) 81 mg PO QAM [facility] Stop: 12/31/24 08:59 Last Admin: 12/01/24 08:27 Dose: 81 mg Cefazolin Sodium (Ancef 2000mg) 2,000 mg in 15 mls @ 3.75 mls/min IV Q8H [facility]; Protocol Stop: 12/15/24 16:59 Last Admin: 12/02/24 01:13 Dose: 3.75 mls/min Lactic Acid (Ammonium Lactate 12% Lotion 225 Gm Btl) 1 gm EXT BID [facility] Stop: 12/29/24 08:59 Last Admin: 12/01/24 20:27 Dose: 1 gm Magnesium Hydroxide (Magnesium Hydroxide Susp 30 Ml Udc) 30 ml PO BID PRN PRN Reason: Constipation Stop: 12/30/24 10:40 Last Admin: 12/01/24 08:25 Dose: 30 ml Magnesium Oxide (Magnesium Oxide 400 Mg Tab) 400 mg PO DAILY [facility] Stop: 12/31/24 08:59 Last Admin: 12/01/24 08:26 Dose: 400 mg Metoprolol Succinate (Metoprolol Succ 50mg Ext Rel Tab) 100 mg PO BID PIPER Stop: 12/30/24 20:59 Last Admin: 12/01/24 20:27 Dose: 100 mg Nitroglycerin (Nitroglycerin Sl 0.4 Mg/Tab Tab) 0.4 mg SL Q5M PRN PRN Reason: Chest Pain Stop: 12/29/24 03:53 Spironolactone (Spironolactone 25 Mg Tab) 25 mg PO DAILY [facility] Stop: 12/31/24 08:59 Last Admin: 12/01/24 08:29 Dose: 25 mg Torsemide (Torsemide 20 Mg Tab) 40 mg PO DAILY [facility] Stop: 12/31/24 08:59 Last Admin: 12/01/24 08:26 Dose: 40 mg Vitamin D (Cholecalciferol 125 Mcg (5,000 Units) Tab) 125 mcg PO DAILY PIPER Stop: 12/31/24 08:59 Last Admin: 12/01/24 08:27 Dose: 125 mcg PG Care Time/CCT Total # of Minutes Spent Total Time Spent with Patient: Total time spent is greater than 50% in coordination of care (as documented) at patient's floor/unit and/or counseling patient: Coding
--- NOTE | 2024-12-02 08:12 | Post Operative Brief Note ---
PG Immediate Post Op with CF Date of Surgery December 02, 2024 Pre & Post Diagnosis Operation Date: 12/02/24 07:15 Preprocedure diagnosis: Streptococcal bacteremia, history of prior endocarditis Postprocedure diagnosis: Retained sutures versus vegetation on the left atrial aspect of the sewing ring of the mitral valve prosthesis, mild paravalvular mitral regurgitation I identified the patient and participated in the time-out.: Yes Procedure Transesophageal echocardiogram procedure: The patient's vital signs were monitored via the standard fashion. After informed consent was obtained a timeout was performed the patient was sedated with the assistance of anesthesia service. The aortic valve bioprosthesis was adequately visualized without evidence of stenosis, regurgitation, or vegetation. The mitral valve bioprosthesis with adequately visualized. There is an echodensity on the left atrial aspect of the sewing ring of the mitral valve consistent in appearance with retained suture versus vegetation. Mild paravalvular mitral regurgitation is present. Surgeon Armin Young DO Information Technology Program Manager CECY Malloy Estimated Blood Loss 0 Findings Consistent with Post-Op Diagnosis Anesthesia Type MAC Complications none none
--- NOTE | 2024-12-02 08:22 | Anesthesiology Progress Note ---
Date of Service December 02, 2024 Anesthesia Post Procedure Vital Signs Vital Signs: Temp Pulse Resp BP Pulse Ox O2 Del Method O2 Flow Rate 12/02/24 08:15 102 H 20 93/59 L 94 Nasal Cannula 2 12/02/24 08:00 101 H 18 100/61 94 Nasal Cannula 2 12/02/24 07:06 81 18 104/62 98 Nasal Cannula 2 12/02/24 07:06 79 18 104/62 99 Nasal Cannula 2 12/02/24 03:18 37.0 C 100 H 18 107/70 99 CPAP 12/01/24 22:54 36.7 C 101 H 18 112/71 93 Nasal Cannula 12/01/24 20:15 36.7 C 92 H 18 104/68 98 Nasal Cannula 12/01/24 16:07 36.8 C 60 18 101/64 97 Nasal Cannula 4 12/01/24 11:13 36.7 C 91 H 18 107/68 97 Nasal Cannula Transfer of Care Handoff Completed per policy Notes Mental Status: alert / awake / arousable Patient Amnestic to Procedure: Yes Nausea / Vomiting: adequately controlled Pain: adequately controlled Airway Patency, RR, SpO2: stable & adequate BP & HR: stable & adequate Hydration State: stable & adequate Anesthetic Complications: no major complications apparent
--- NOTE | 2024-12-02 08:37 | Cardiology Progress Note ---
Date of Service December 02, 2024 Assessment & Plan (1) Fever: (2) Leukocytosis: (3) Acute UTI: (4) Elevated troponin: (5) S/P MVR (mitral valve replacement): (6) S/P AVR (aortic valve replacement): (7) Pickwickian syndrome: Plan Patient has a history of [place] mitral valve endocarditis along with severe aortic valve stenosis with MSSA bacteremia, February 2020 prompting cardiac surgery at [facility] in March 2020 with placement of a bioprosthetic mitral valve and a bioprosthetic aortic valve. He also had a pericardial patch of the mitral valve annulus. His perioperative course was complicated by septic emboli to the brain. Patient with noted Streptococcus bacteremia, perhaps related to chronic venous stasis dermatitis of his lower legs which are mildly erythematous but improved compared to my most recent visit with him in the hospital at the time of his previous admission. He had a dental extraction performed in January,. Transesophageal echocardiogram performed on 12/02/2024. The aortic valve prosthesis was well-visualized without evidence of vegetation. Prosthetic aortic valve function was normal without stenosis or regurgitation. The mitral valve prosthesis was adequately visualized. Prosthetic mitral stenosis is absent. There is a mild degree of paravalvular mitral regurgitation. There is an echodensity on the atrial aspect of the posterior mitral valve sewing ring consistent with retained suture versus vegetation. Given clinical history, would consider treating patient with an extended course of IV antibiotic due to clinical concerns of endocarditis. I updated the patient's spouse by phone. I spent a total of 25 minutes coordinating, documenting, and providing care for this patient excluding time spent in the performance of separately billed services or time spent by another provider. Vanessa Young, DO Admission and Anticipated Discharge Date Admission Date: November 29, 2024 Subjective Patient seen in cardiology follow up prior to, during and after TAYLOR. Patient feeling improved from a dysuria standpoint. Denies shortness of breath. No documented fever since 11/28/24. Physical Exam Constitutional: well developed, well nourished and + overweight; no acute distress and not ill appearing Neck: normal visual inspection and trachea midline Respiratory: normal respiratory effort, lungs clear to auscultation Cardiovascular: Rate/Rhythm: + irregularly irregular Heart Sounds: normal S1, normal S2 and + murmur (+1/6 systolic) Vessels: dorsalis pedis pulses present; no JVD chronic dermatitis to bilateral LE Skin: normal turgor Psychiatric: A+Ox3, euthymic affect Results & Data Vital Signs (Past 12 Hours) Vital Signs Temp Pulse Resp BP Pulse Ox O2 Del Method O2 Flow Rate 12/02/24 08:15 102 H 20 93/59 L 94 Nasal Cannula 2 12/02/24 08:00 101 H 18 100/61 94 Nasal Cannula 2 12/02/24 07:06 81 18 104/62 98 Nasal Cannula 2 12/02/24 07:06 79 18 104/62 99 Nasal Cannula 2 12/02/24 03:18 37.0 C 100 H 18 107/70 99 CPAP 12/01/24 22:54 36.7 C 101 H 18 112/71 93 Nasal Cannula Laboratory Results CBC 12/02/24 Range/Units 05:47 WBC 6.10 (4.8-10.8) K/ul RBC 3.54 L (4.70-6.10) M/uL Hgb 10.2 L (14.0-18.0) g/dl Hct 32.8 L (42.0-52.0) % Plt Count 128 L (130-400) K/uL Comprehensive Metabolic Panel 12/02/24 Range/Units 05:47 Sodium 138 (136-145) mmol/L Potassium 4.5 (3.5-5.1) mmol/L Chloride 101 (98-107) mmol/L Carbon Dioxide 29 (21-32) mmol/L BUN 64 H (6-23) mg/dl Creatinine 2.32 H (0.6-1.4) mg/dl Glucose 111 H (70-99(Fasting)) mg/dl Calcium 9.2 (8.6-10.3) mg/dl Intake and Output 12/01/24 12/02/24 12/02/24 22:59 06:59 14:59 Intake Total 300 / 1450 Output Total 650 / 2401 450 / 2401 Balance -350 / -951 -450 / -951 Intake: Oral 300 / 1450 Output: Urine 650 / 2400 450 / 2400 Other: Weight 90 kg Patient Weight 12/03/24 06:59 Weight 90 kg PG Care Time/CCT Total # of Minutes Spent Total Time Spent with Patient: Total time spent is greater than 50% in coordination of care (as documented) at patient's floor/unit and/or counseling patient: Coding Level of Care Code 41098 SUB INP/OBS CARE 2/35MIN Diagnoses Fever R50.9 Fever type: unspecified Leukocytosis D72.829 Leukocytosis type: unspecified Acute UTI N39.0 Elevated troponin R79.89 S/P MVR (mitral valve replacement) Z95.2 S/P AVR (aortic valve replacement) Z95.2 Pickwickian syndrome E66.2 (1) Fever Fever type: unspecified Qualified Code(s): R50.9 - Fever, unspecified (2) Leukocytosis Leukocytosis type: unspecified Qualified Code(s): D72.829 - Elevated white blood cell count, unspecified
[2024-12-02] MEDS: BENZOCAINE/TETRACAIN/BUTAM 50 APPLN/5 GM CAN EXT ONE (08:54)
--- NOTE | 2024-12-02 12:36 | Hospitalist Progress Note ---
Date of Service December 02, 2024 Assessment & Plan (1) Severe sepsis with acute organ dysfunction: (2) Demand ischemia: (3) Streptococcal bacteremia: (4) Urinary tract infection due to Proteus: (5) Chronic atrial fibrillation: (6) Hypokalemia: (7) Chronic hypoxic respiratory failure, on home oxygen therapy: (8) Chronic heart failure with preserved ejection fraction: (9) Chronic renal failure (CRF), stage 3b: (10) History of aortic valve replacement: (11) History of mitral valve replacement: Plan Patient significantly improved from streptococcal bacteremia and Proteus UTI. Cefepime was switched to cefazolin yesterday. Discussed w/ infectious disease provider today - awaiting sensitivities for Strep found in blood. Given repeat blood cultx negat. for 48 hrs - will place PICC line - consent obtained. TAYLOR obtained - per cardiology - Transesophageal echocardiogram performed on 12/02/2024. The aortic valve prosthesis was well-visualized without evidence of vegetation. Prosthetic aortic valve function was normal without stenosis or regurgitation. The mitral valve prosthesis was adequately visualized. Prosthetic mitral stenosis is absent. There is a mild degree of paravalvular mitral regurgitation. There is an echodensity on the atrial aspect of the posterior mitral valve sewing ring consistent with retained suture versus vegetation. Anticipate patient will need a prolonged course of IV antibiotics, not definitive clear where streptococcal bacteremia came from. High suspicion it was from his lower extremities will need final recommendations from infectious disease Therapies Continue other outpatient medications Admission and Anticipated Discharge Date Admission Date: November 29, 2024 Subjective Pt seen in follow up of bacteremia (endocarditis), UTI Currently lying in bed in NAD, overall feeling well Denies any fever, chills, chest pain or shortness of breath Discussed w/ ID - awaiting sensitivities of strep found in blood Given blood cultx now negat. for 48 hrs - will place PICC line - consent obtained Review of Systems Review of Systems: All systems reviewed & are unremarkable except as noted in Subjective Physical Exam Physical Exam: Constitutional: obese elderly M in NAD HEENT: Mucous membranes moist. Lungs: Clear to auscultation, decreased, no wheezes rales or rhonchi CV: S1-S2, irregular, systolic murmur Abdomen: Soft, nontender, nondistended, +obese Extremities: No significant edema, chronic dermatitis lower extremities, swelling decreased Neuro: awake, alert, speech fluent, no facial asymmetry, answers appropriately, moves extremities Psych: Cooperative, normal mood Results & Data Results & Data Vital Signs (Past 12 Hours) Vital Signs Temp Pulse Resp BP BP Pulse Ox O2 Del Method 12/02/24 10:59 36.8 C 61 19 106/68 99 Nasal Cannula 12/02/24 09:06 36.7 C 84 16 106/66 96 Room Air 12/02/24 08:50 36.7 C 80 16 98/62 L 95 Room Air 12/02/24 08:15 102 H 20 93/59 L 94 Nasal Cannula 12/02/24 08:00 101 H 18 100/61 94 Nasal Cannula 12/02/24 07:06 81 18 104/62 98 Nasal Cannula 12/02/24 07:06 79 18 104/62 99 Nasal Cannula 12/02/24 03:18 37.0 C 100 H 18 107/70 99 CPAP O2 Flow Rate 12/02/24 10:59 2 12/02/24 09:06 12/02/24 08:50 12/02/24 08:15 2 12/02/24 08:00 2 12/02/24 07:06 2 12/02/24 07:06 2 12/02/24 03:18 Laboratory Results 12/02/24 Range/Units 05:47 WBC 6.10 (4.8-10.8) K/ul RBC 3.54 L (4.70-6.10) M/uL Hgb 10.2 L (14.0-18.0) g/dl Hct 32.8 L (42.0-52.0) % MCV 92.7 (80.0-100.0) fL MCH 28.8 (25.0-34.0) pg MCHC 31.1 L (32.0-36.0) g/dL RDW Std Deviation 54.4 H (36.4-46.3) fL RDW Coeff of Arely 16.0 H (11.5-14.5) % Plt Count 128 L (130-400) K/uL MPV 11.4 (9.4-12.4) fL Sodium 138 (136-145) mmol/L Potassium 4.5 (3.5-5.1) mmol/L Chloride 101 (98-107) mmol/L Carbon Dioxide 29 (21-32) mmol/L Anion Gap 8 (3-11) BUN 64 H (6-23) mg/dl Creatinine 2.32 H (0.6-1.4) mg/dl Est Cr Clr Drug Dosing 34.6 ml/min eGFR 30.42 BUN/Creatinine Ratio 27.6 H (10-20) Glucose 111 H (70-99(Fasting)) mg/dl Calcium 9.2 (8.6-10.3) mg/dl Phosphorus 4.4 (2.5-4.9) mg/dl Magnesium 2.4 (1.7-2.4) mg/dl Medications Administered Current Inpatient Medications Acetaminophen (Acetaminophen 325 Mg Tab) 650 mg PO Q4H PRN PRN Reason: Pain or Fever Stop: 12/29/24 03:53 Allopurinol (Allopurinol 100 Mg Tab) 100 mg PO DAILY [facility] Stop: 12/31/24 08:59 Last Admin: 12/02/24 09:06 Dose: 100 mg Apixaban (Apixaban 5 Mg Tablet) 5 mg PO BID [facility] Stop: 12/30/24 20:59 Last Admin: 12/02/24 09:06 Dose: 5 mg Aspirin (Aspirin 81 Mg Ectab) 81 mg PO QAM [facility] Stop: 12/31/24 08:59 Last Admin: 12/02/24 09:06 Dose: 81 mg Cefazolin Sodium (Ancef 2000mg) 2,000 mg in 15 mls @ 3.75 mls/min IV Q8H [facility]; Protocol Stop: 12/15/24 16:59 Last Admin: 12/02/24 09:06 Dose: 3.75 mls/min Lactic Acid (Ammonium Lactate 12% Lotion 225 Gm Btl) 1 gm EXT BID [facility] Stop: 12/29/24 08:59 Last Admin: 12/02/24 09:06 Dose: 1 gm Magnesium Hydroxide (Magnesium Hydroxide Susp 30 Ml Udc) 30 ml PO BID PRN PRN Reason: Constipation Stop: 12/30/24 10:40 Last Admin: 12/01/24 08:25 Dose: 30 ml Magnesium Oxide (Magnesium Oxide 400 Mg Tab) 400 mg PO DAILY [facility] Stop: 12/31/24 08:59 Last Admin: 12/02/24 09:06 Dose: 400 mg Metoprolol Succinate (Metoprolol Succ 50mg Ext Rel Tab) 100 mg PO BID [facility] Stop: 12/30/24 20:59 Last Admin: 12/02/24 09:05 Dose: 100 mg Nitroglycerin (Nitroglycerin Sl 0.4 Mg/Tab Tab) 0.4 mg SL Q5M PRN PRN Reason: Chest Pain Stop: 12/29/24 03:53 Spironolactone (Spironolactone 25 Mg Tab) 25 mg PO DAILY [facility] Stop: 12/31/24 08:59 Last Admin: 12/01/24 08:29 Dose: 25 mg Torsemide (Torsemide 20 Mg Tab) 40 mg PO DAILY [facility] Stop: 12/31/24 08:59 Last Admin: 12/01/24 08:26 Dose: 40 mg Vitamin D (Cholecalciferol 125 Mcg (5,000 Units) Tab) 125 mcg PO DAILY [facility] Stop: 12/31/24 08:59 Last Admin: 12/02/24 09:05 Dose: 125 mcg
[2024-12-02] MEDS: Nursing to Pharmacy Communication SCH (16:42)
[2024-12-03 06:26] LABS: Hematocrit (blood only) 32.1 % (42.0-52.0); Hemoglobin 10.0 g/dl (14.0-18.0); Mean Corpuscular Hemoglobin 28.9 pg (25.0-34.0); Mean Corpuscular Volume 92.8 fL (80.0-100.0); Platelet Count 147 K/uL (130-400); RDW Standard Deviation 53.8 fL (36.4-46.3); Red Blood Count 3.46 M/uL (4.70-6.10); White Blood Count 7.03 K/ul (4.8-10.8)
[2024-12-03 06:52] LABS: Anion Gap 9.0 (3-11); Blood Urea Nitrogen 54.0 mg/dl (6-23); Calcium 9.2 mg/dl (8.6-10.3); Carbon Dioxide 26.0 mmol/L (21-32); Chloride 102.0 mmol/L (98-107); Creatinine Clr Calc Pharmacy 41.4 ml/min; Glucose 92.0 mg/dl (70-99(Fasting)); Magnesium 2.4 mg/dl (1.7-2.4); Potassium 4.1 mmol/L (3.5-5.1); Sodium 137.0 mmol/L (136-145)
--- NOTE | 2024-12-03 09:07 | Infectious Disease Progress Nt ---
Date of Service December 03, 2024 Telehealth Information Patient not seen today. Assessment & Plan (1) Streptococcal bacteremia: Plan 1. Cefazolin (should probably be dosed at 2g IV q 12 based on renal function) to continue through 01/10/25 (6 weeks total) 2. While on cefazolin, please obtain weekly CBC and BMP 3. Follow-up in ID clinic in the next 2-4 weeks Subjective S anginosus apparently non-viable for sensitivities, but infection clearly responding well to cephalosporin therapy. Results & Data Vital Signs (Past 12 Hours) Vital Signs Temp Pulse Pulse Resp BP Pulse Ox O2 Del Method 12/03/24 08:11 81 12/03/24 07:56 Nasal Cannula 12/03/24 07:11 37.1 C 66 20 117/73 100 Nasal Cannula 12/03/24 02:22 36.6 C 69 16 110/65 97 CPAP 12/03/24 01:16 78 12/03/24 00:15 CPAP 12/02/24 22:09 37.3 C 72 18 106/66 98 Room Air O2 Flow Rate 12/03/24 08:11 12/03/24 07:56 2 12/03/24 07:11 2.0 12/03/24 02:22 12/03/24 01:16 12/03/24 00:15 12/02/24 22:09 Laboratory Results Follow-up blood cultures from 11/30 remain negative. Diagnostic Findings TAYLOR results reviewed. Cannot rule out possible IE.
--- NOTE | 2024-12-03 11:15 | Cardiology Progress Note ---
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 Prosthetic aortic valve function was normal without stenosis or regurgitation. * Mitral valve prosthesis was adequately visualized. Prosthetic mitral stenosis is absent. There is a mild degree of paravalvular mitral regurgitation. There is an echodensity on the atrial aspect of the posterior mitral valve sewing ring consistent with retained suture versus vegetation. * Recommend extended course of IV antibiotic due to clinical concerns of endocarditis * + Aflutter/fib (chronic) * On DOAC for Afib/flutter * SBP 107 mmHG * HR better controlled - 79 BPM * Continue Toprol XL 100 mg po BID * K+ goal 4.5-5 * Kdur 40 meq po x 1 on 12-03-2024 * Mag++ 2.4 * TSH - WNL - 2.1 * Jardiance (OFF) - +UTI * Creat 2 - no aldactone * Troponin elevation - cath at [facility] in 2021 - mild, non-obstructive disease; consider nuclear stress as an outpt * Arrange for Follow Up with Cardiology when IV ABX course is completed; repeat blood cultures when ABX completed - 01/25/[address] Young * 51 min spent addressing challenges, educating and advancing daily plan of care * Please call back with any additional questions Samson Melo Admission and Anticipated Discharge Date Admission Date: November 29, 2024 Subjective Events Overnight: * None reported Telemetry: * Afib - rate controlled Subjective: * No complaints Review of Systems Review of Systems: All systems reviewed & are unremarkable except as noted in HPI & below Physical Exam Physical Exam: Overweight No elevation in JVP S1S2 2/6 Systolic Murmur CTA B on anterior exam No c/c; trace edema - chronic dermatitis to bilateral LE Results & Data Vital Signs (Past 12 Hours) Vital Signs Temp Pulse Pulse Resp BP Pulse Ox O2 Del Method 12/03/24 08:11 81 12/03/24 07:56 Nasal Cannula 12/03/24 07:11 37.1 C 66 20 117/73 100 Nasal Cannula 12/03/24 02:22 36.6 C 69 16 110/65 97 CPAP 12/03/24 01:16 78 12/03/24 00:15 CPAP O2 Flow Rate 12/03/24 08:11 12/03/24 07:56 2 12/03/24 07:11 2.0 12/03/24 02:22 12/03/24 01:16 12/03/24 00:15 Laboratory Results CBC 12/03/24 Range/Units 06:08 WBC 7.03 (4.8-10.8) K/ul RBC 3.46 L (4.70-6.10) M/uL Hgb 10.0 L (14.0-18.0) g/dl Hct 32.1 L (42.0-52.0) % Plt Count 147 (130-400) K/uL Comprehensive Metabolic Panel 12/03/24 Range/Units 06:08 Sodium 137 (136-145) mmol/L Potassium 4.1 (3.5-5.1) mmol/L Chloride 102 (98-107) mmol/L Carbon Dioxide 26 (21-32) mmol/L BUN 54 H (6-23) mg/dl Creatinine 1.94 H D (0.6-1.4) mg/dl Glucose 92 (70-99(Fasting)) mg/dl Calcium 9.2 (8.6-10.3) mg/dl Intake and Output 12/02/24 12/03/24 12/03/24 22:59 06:59 14:59 Intake Total 150 / 900 Output Total 400 / 1750 750 / 1750 300 / 300 Balance -400 / -850 -600 / -850 -300 / -300 Intake: Oral 150 / 900 Output: Urine 400 / 1750 750 / 1750 300 / 300 Other: Weight 90.2 kg Weight Measurement Method Built in [facility] Diagnostic Findings ECHOcardiogram: 11-29-2024 * LVEF 65-70% * Bioprosthetic AoV - mean gradient 20 - no change - trace AI * Bioprosthetic MV - mean gradient 4.3 - no significant MR * TR - mild * RVSP 30-40 mmHg Medications Administered Current Inpatient Medications Acetaminophen (Acetaminophen 325 Mg Tab) 650 mg PO Q4H PRN PRN Reason: Pain or Fever Stop: 12/29/24 03:53 Allopurinol (Allopurinol 100 Mg Tab) 100 mg PO DAILY [facility] Stop: 12/31/24 08:59 Last Admin: 12/03/24 09:13 Dose: 100 mg Apixaban (Apixaban 5 Mg Tablet) 5 mg PO BID [facility] Stop: 12/30/24 20:59 Last Admin: 12/03/24 09:13 Dose: 5 mg Aspirin (Aspirin 81 Mg Ectab) 81 mg PO QAM [facility] Stop: 12/31/24 08:59 Last Admin: 12/03/24 09:14 Dose: 81 mg Cefazolin Sodium (Ancef 2000mg) 2,000 mg in 15 mls @ 3.75 mls/min IV Q8H [facility]; Protocol Stop: 12/15/24 16:59 Last Admin: 12/03/24 09:16 Dose: 3.75 mls/min Lactic Acid (Ammonium Lactate 12% Lotion 225 Gm Btl) 1 gm EXT BID [facility] Stop: 12/29/24 08:59 Last Admin: 12/03/24 09:14 Dose: 1 gm Magnesium Hydroxide (Magnesium Hydroxide Susp 30 Ml Udc) 30 ml PO BID PRN PRN Reason: Constipation Stop: 12/30/24 10:40 Last Admin: 12/01/24 08:25 Dose: 30 ml Magnesium Oxide (Magnesium Oxide 400 Mg Tab) 400 mg PO DAILY [facility] Stop: 12/31/24 08:59 Last Admin: 12/03/24 09:13 Dose: 400 mg Metoprolol Succinate (Metoprolol Succ 50mg Ext Rel Tab) 100 mg PO BID [facility] Stop: 12/30/24 20:59 Last Admin: 12/03/24 09:14 Dose: 100 mg Nitroglycerin (Nitroglycerin Sl 0.4 Mg/Tab Tab) 0.4 mg SL Q5M PRN PRN Reason: Chest Pain Stop: 12/29/24 03:53 Spironolactone (Spironolactone 25 Mg Tab) 25 mg PO DAILY [facility] Stop: 12/31/24 08:59 Last Admin: 12/01/24 08:29 Dose: 25 mg Torsemide (Torsemide 20 Mg Tab) 40 mg PO DAILY [facility] Stop: 12/31/24 08:59 Last Admin: 12/01/24 08:26 Dose: 40 mg Vitamin D (Cholecalciferol 125 Mcg (5,000 Units) Tab) 125 mcg PO DAILY [facility] Stop: 12/31/24 08:59 Last Admin: 12/03/24 09:13 Dose: 125 mcg PG Care Time/CCT Total # of Minutes Spent Total Time Spent with Patient: Total time spent is greater than 50% in coordination of care (as documented) at patient's floor/unit and/or counseling patient: Coding Level of Care Code 28964 SUB INP/OBS CARE 3/50MIN Diagnoses Streptococcal bacteremia R78.81; B95.5
--- NOTE | 2024-12-03 15:33 | XRay Report ---
XR chest 1V portable CLINICAL HISTORY: Check PICC line placement COMPARISON STUDY: 11/28/2024 FINDINGS: Stable cardiac valve repair. There is an interval right PICC line with the tip at the cavoa trial junction. There is stable cardiomegaly with pulmonary vascular congestion. Stable small right p leural effusion and mild consolidation right lung base. No pneumothorax. IMPRESSION: 1. Well-positioned right PICC line. 2. Stable mild CHF with small right pleural effusion. ACT 112: Negative or not required by law. Electronically signed by: Wade Stuart M.D. 12/03/2024 3:31 PM
[2024-12-03] MEDS: ACETAMINOPHEN 1,000 MG/100 ML VIAL IV STA (21:05)
[2024-12-04 03:38] VITALS: RESP 18
[2024-12-04 05:06] LABS: Hematocrit (blood only) 31.3 % (42.0-52.0); Hemoglobin 9.7 g/dl (14.0-18.0); Mean Corpuscular Hemoglobin 28.8 pg (25.0-34.0); Mean Corpuscular Volume 92.9 fL (80.0-100.0); Platelet Count 161 K/uL (130-400); RDW Standard Deviation 54.0 fL (36.4-46.3); Red Blood Count 3.37 M/uL (4.70-6.10); White Blood Count 6.62 K/ul (4.8-10.8)
[2024-12-04 05:21] LABS: Anion Gap 8.0 (3-11); Blood Urea Nitrogen 51.0 mg/dl (6-23); Calcium 9.1 mg/dl (8.6-10.3); Carbon Dioxide 27.0 mmol/L (21-32); Chloride 102.0 mmol/L (98-107); Creatinine Clr Calc Pharmacy 38.2 ml/min; Glucose 114.0 mg/dl (70-99(Fasting)); Magnesium 2.4 mg/dl (1.7-2.4); Potassium 4.0 mmol/L (3.5-5.1); Sodium 137.0 mmol/L (136-145)
--- NOTE | 2024-12-04 08:57 | Hospitalist Progress Note ---
Date of Service December 03, 2024 Assessment & Plan (1) Severe sepsis with acute organ dysfunction: (2) Demand ischemia: (3) Streptococcal bacteremia: (4) Urinary tract infection due to Proteus: (5) Chronic atrial fibrillation: (6) Hypokalemia: (7) Chronic hypoxic respiratory failure, on home oxygen therapy: (8) Chronic heart failure with preserved ejection fraction: (9) Chronic renal failure (CRF), stage 3b: (10) History of aortic valve replacement: (11) History of mitral valve replacement: Plan Patient significantly improved from streptococcal bacteremia and Proteus UTI. Cefepime was switched to cefazolin. Discussed w/ infectious disease provider today - awaiting sensitivities for Strep found in blood however organism nonviable for sensitivities testing (discussed w/ lab and again w/ ID). ID recommendations given - cont. w/ cefazolin Per ID 1. Cefazolin (should probably be dosed at 2g IV q 12 based on renal function) to continue through 01/10/25 (6 weeks total) 2. While on cefazolin, please obtain weekly CBC and BMP 3. Follow-up in ID clinic in the next 2-4 weeks PICC line - consent obtained but line not placed yet TAYLOR obtained - per cardiology - Transesophageal echocardiogram performed on 12/02/2024. The aortic valve prosthesis was well-visualized without evidence of vegetation. Prosthetic aortic valve function was normal without stenosis or regurgitation. The mitral valve prosthesis was adequately visualized. Prosthetic mitral stenosis is absent. There is a mild degree of paravalvular mitral regurgitation. There is an echodensity on the atrial aspect of the posterior mitral valve sewing ring consistent with retained suture versus vegetation. Per cardiology - given Cr ~2 - no aldacton troponin elevation - cath at [place] in 2021 - mild, non-obstructive disease; c onsider nuclear stress as an outpt Arrange for Follow Up with Cardiology when IV ABX course is completed; repeat blood cultures when ABX completed - 01/25/[address] Young Therapies Continue other outpatient medications Admission and Anticipated Discharge Date Admission Date: November 29, 2024 Subjective Pt seen in follow up of bacteremia (endocarditis), UTI Currently lying in bed in NAD, overall feeling well Denies any fever, chills, chest pain or shortness of breath Discussed w/ ID - awaiting sensitivities of strep found in blood - > bacteria non viable for sensitivities testing - discussed today w/ lab and w/ ID PICC line - consent obtained but line not placed yet Review of Systems Review of Systems: All systems reviewed & are unremarkable except as noted in Subjective Physical Exam Physical Exam: Constitutional: obese elderly M in NAD HEENT: Mucous membranes moist. Lungs: Clear to auscultation, decreased, no wheezes rales or rhonchi CV: S1-S2, irregular, systolic murmur Abdomen: Soft, nontender, nondistended, +obese Extremities: No significant edema, chronic dermatitis lower extremities, swelling decreased Neuro: awake, alert, speech fluent, no facial asymmetry, answers appropriately, moves extremities Psych: Cooperative, normal mood Results & Data Results & Data Vital Signs (Past 12 Hours) Vital Signs Temp Pulse Pulse Resp BP Pulse Ox O2 Del Method 12/03/24 21:58 Nasal Cannula 12/03/24 21:46 74 O2 Flow Rate 12/03/24 21:58 2 12/03/24 21:46
[2024-12-04] MEDS: SENNA 8.6 MG TAB PO SCH (10:38)
[2024-12-04] MEDS: POLYETHYLENE (MIRALAX) 17 GM PACK PO SCH (10:39)
[2024-12-04 12:10] VITALS: TEMP 98.4; O2SAT 98
[2024-12-04 14:58] VITALS: BP 117/73; PULSE 79
--- NOTE | 2024-12-04 15:47 | Discharge Summary ---
Date of Service December 04, 2024 Admission HPI Per Admitting Provider 64-year-old male with past medical history significant for obstructive sleep apnea on CPAP, chronic right-sided heart failure, hypertension, chronic atrial fibrillation, CKD stage III, chronic venous stasis dermatitis, history of endocarditis, status post AVR, status post MVR, poor balance, ambulates with walker, history of CVA who lives at home with his comes in because of fevers. Patient states since 4 PM he is having fevers. Denies any headache. No runny nose or sore throat. No cough. No nausea or vomiting. No diarrhea. Has some pain while micturating and he attributes this to recent Lara catheter which was removed recently.. No chest pain. No shortness of breath. No abdominal pain. Currently resting comfortably and hemodynamically stable. Patient was recently in the hospital for acute on chronic right-sided heart failure and during that admission spironolactone Jardiance were ordered and also was discharged to rehab on torsemide 40 mg. At the time of discharge to rehab patient did not want to remove Lara. When he followed up with PCP on 11/23/2024 Lara was removed. Past medical history. As mentioned above Status post AVR and status post MVR as per records Social history. . No smoking. No alcohol use. No drug use. Family history. No family history on file. Admission Exam Per Admitting Provider General- Not in acute distress Head- atraumatic Eyes- PERRL. ENT- oropharynx clear Neck- supple, no JVD. Lungs- clear to auscultation no wheezing or crackles Heart- regular rhythm; no murmur, no gallop. Abdomen- normal bowel sounds, soft, nontender, no distension Extremities- b/l lower extremity chronic skin changes seen. crusting of legs seen Neuro- alert, oriented PERRL, no facial palsy; no dysarthria; moves extremities Principal Diagnosis Streptococcal bacteremia, presumed endocarditis UTI Discharge Exam Constitutional: obese elderly M in NAD HEENT: Mucous membranes moist. Lungs: Clear to auscultation, decreased, no wheezes rales or rhonchi CV: S1-S2, irregular, systolic murmur Abdomen: Soft, nontender, nondistended, +obese Extremities: No significant edema, chronic dermatitis lower extremities, swelling decreased Neuro: awake, alert, speech fluent, no facial asymmetry, answers appropriately, moves extremities Psych: Cooperative, normal mood Discharge Data Allergies Allergy/AdvReac Type Severity Reaction Status Date / Time amoxicillin Allergy Intermediate Rash Verified 01/22/24 06:20 cyclobenzaprine AdvReac Intermediate Rash Verified 01/22/24 06:20 wheat AdvReac Fatigued Unverified 11/28/24 22:46 Consultations 11/28/24 23:26 ED Decision to Admit Stat 11/30/24 07:50 Consult Infectious Diseases Routine 12/01/24 12:53 Consult Anesthesiology Routine Procedures Performed Operation Date: 12/02/24 07:15 Actual Procedures p Echo Transesophageal(Not Applicable) - DO margaux Garcia Echo Color Flow - DO margaux Garcia Echo Doppler Complete - Armin Young DO Ordered Studies 11/28/24 19:45 CT abd pelvis wo con Stat FINDINGS: Lung bases: Unremarkable. No mass. No consolidation. Pleural space: Small right pleural effusion. Heart: Cardiomegaly. ABDOMEN: Liver: Cirrhosis. No visualized mass. Gallbladder and bile ducts: Cholelithiasis. No ultrasound evidence of acute cholecystitis. No ductal dilation. Pancreas: Unremarkable. No ductal dilation. Spleen: Unremarkable. No splenomegaly. Adrenals: Unremarkable. No mass. Kidneys and ureters: Unremarkable. No obstructing stones. No hydronephrosis. Stomach and bowel: Unremarkable. No obstruction. No mucosal thickening. PELVIS: Appendix: Normal appendix. Bladder: Unremarkable. No stones. Reproductive: Unremarkable as visualized. ABDOMEN and PELVIS: Intraperitoneal space: Unremarkable. No free air. No significant fluid collection. Bones/joints: No acute fracture. No dislocation. Soft tissues: Gynecomastia is noted. Small bilateral fat-containing inguinal hernias. Vasculature: Mild atherosclerosis. No aneurysm. Lymph nodes: Unremarkable. No enlarged lymph nodes. IMPRESSION: 1. Cirrhosis. No visualized mass. 2. Cholelithiasis. No ultrasound evidence of acute cholecystitis. 3. Cardiomegaly. 4. Small right pleural effusion. CT head/brain wo con Stat FINDINGS: Brain: Unremarkable. No hemorrhage. Mild nonspecific white matter changes. No edema. Ventricles: Unremarkable. No ventriculomegaly. Bones/joints: Unremarkable. No acute fracture. Soft tissues: Unremarkable. Sinuses: Unremarkable as visualized. No acute sinusitis. Mastoid air cells: Unremarkable as visualized. No mastoid effusion. IMPRESSION: No evidence of acute intracranial pathology. Hospital Course (1) Severe sepsis with acute organ dysfunction: (2) Demand ischemia: (3) Streptococcal bacteremia: (4) Urinary tract infection due to Proteus: (5) Chronic atrial fibrillation: (6) Hypokalemia: (7) Chronic hypoxic respiratory failure, on home oxygen therapy: (8) Chronic heart failure with preserved ejection fraction: (9) Chronic renal failure (CRF), stage 3b: (10) History of aortic valve replacement: (11) History of mitral valve replacement: Plan Patient significantly improved from streptococcal bacteremia and Proteus UTI. Cefepime was switched to cefazolin. Discussed w/ infectious disease provider - awaiting sensitivities for Strep found in blood however organism nonviable for sensitivities testing (discussed w/ lab and again w/ ID). ID recommendations given - cont. w/ cefazolin Per ID 1. Cefazolin (should probably be dosed at 2g IV q 12 based on renal function) to continue through 01/10/25 (6 weeks total) 2. While on cefazolin, please obtain weekly CBC and BMP 3. Follow-up in ID clinic in the next 2-4 weeks PICC line placed TAYLOR obtained - per cardiology - Transesophageal echocardiogram performed on 12/02/2024. The aortic valve prosthesis was well-visualized without evidence of vegetation. Prosthetic aortic valve function was normal without stenosis or regurgitation. The mitral valve prosthesis was adequately visualized. Prosthetic mitral stenosis is absent. There is a mild degree of paravalvular mitral regurgitation. There is an echodensity on the atrial aspect of the posterior mitral valve sewing ring consistent with retained suture versus vegetation. Per cardiology - given Cr ~2 - stop aldacton troponin elevation - cath at [place] in 2021 - mild, non-obstructive disease; consider nuclear stress as an outpt Arrange for Follow Up with Cardiology when IV ABX course is completed; repeat blood cultures when ABX completed - 01/25/[address] Young Therapies Continue other outpatient medications Total Time Total Time Spent Total Time Spent (In Minutes): 40 Discharge Plan Discharge Items Patient Disposition: Home - Home Health Services Reason For Visit: ILLNESS, NSTEMI Discharge Diagnosis: Streptococcal bacteremia, presumed endocarditis UTI Condition on Discharge: Fair Activity: Per Instructions section Non-emergency contact: Primary Care Provider, Specialist and Engineering Tech Call non-emergency contact if: you have any medication questions and your symptoms worsen Follow-up/Referrals: John Wallace [Physician Raw Shellfish Preparer] - (The office will contact you with a follow up appointment.) Yuriy Dempsey MD [Primary Care Provider] - (Date & Time 12/09/2024 10:00 AM Provider: Yuriy Dempsey MD [facility], [facility] ) Diet: Heart Healthy Addtl Attending Provider Instructions: Follow up with your primary care doctor, concession cashier, infectious disease doctor. You will need to be on IV antibiotic - cefazolin , through 01/10/2025. You will need blood work weekly while on cefazolin (CBC, BMP). Follow up with ID clinic in the next 2-4 weeks. Stop taking spironolactone. Pending Studies at Discharge: Yes Studies:: repeat blood cultx results Stand-Alone Forms: My [facility] [employer] Backpack, Smoking Cessation Medications and DC Order Prescriptions: Continued coenzyme Q10 [CoQ-10] 100 mg Capsule 100 mg PO DAILY cholecalciferol (vitamin D3) [Vitamin D3] 125 mcg (5,000 unit) Tablet 125 mcg PO DAILY apixaban 5 mg Tablet 5 mg PO QAM Rx Instructions: per pt he only takes one tab daily aspirin 81 mg Capsule 81 mg PO QAM magnesium oxide 400 mg (241.3 mg magnesium) Tablet 400 mg PO DAILY Qty: 30 1RF Jardiance 10 mg Tablet 10 mg PO DAILY Qty: 30 0RF torsemide 20 mg Tablet 40 mg PO QAM Qty: 30 1RF ammonium lactate 12 % lotion 1 applic TOPICAL BID Rx Instructions: Apply to legs twice dialy allopurinol 100 mg tablet 100 mg PO DAILY metoprolol succinate 100 mg tablet extended release 24 hr 100 mg PO BID Discontinued spironolactone 25 mg tablet 25 mg PO DAILY Discharge Orders: Discharge Order (Routine); Ordered 12/04/24 Ordered By: Irvin Mcwilliams Admission Data Admit Date/Time: 11/29/24 02:46 Attending Provider: Irvin Mcwilliams Admit Provider: Terrance Berg Primary Care Provider: Yuriy Dempsey Other Providers: Yovany Maya; Terrance Berg; Tj Villasenor; Tiana Fraser; Dwayne Moe I.; Aditya Gray II; Dilcia Porras; John Maya; Lg Liz; Adina Alexander; Edmond Hardin; [facility]; [facility] Fax Other Interventions: Discharge Summary Assessment (RN) Last Done: 12/04/24 14:56
== END 2024-12-04 17:43 | disposition home health service (06) | DRG 871 ==
LOC: ED 18:12 → SUATTDRO 11-29 02:46 → EDINP 11-29 02:46 → 4W 11-29 03:54

== ENCOUNTER 2025-04-19 18:16 | Inpatient (IN) ==
[2025-04-19 19:19] LABS: Hematocrit (blood only) 31.0 % (42.0-52.0); Hemoglobin 9.1 g/dL (14.0-18.0); Immature Granulocytes # (auto) 0.03 K/uL (0.01-0.20); Immature Granulocytes % (auto) 0.5 %; Mean Corpuscular Hemoglobin 25.7 pg (25.0-34.0); Mean Corpuscular Volume 87.6 fL (80.0-100.0); Platelet Count 225 K/uL (130-400); RDW Standard Deviation 54.9 fL (36.4-46.3); Red Blood Count 3.54 M/uL (4.70-6.10); White Blood Count 6.40 K/ul (4.8-10.8)
[2025-04-19 19:37] LABS: Anion Gap 6.0 (3-11); Blood Urea Nitrogen 34.0 mg/dl (6-23); Calcium 8.8 mg/dl (8.6-10.3); Carbon Dioxide 30.0 mmol/L (21-32); Chloride 104.0 mmol/L (98-107); Creatinine Clr Calc Pharmacy 47.3 ml/min; Glucose 106.0 mg/dl (70-99(Fasting)); Lipase 12.0 U/L (11-82); Potassium 5.5 mmol/L (3.5-5.1); Sodium 140.0 mmol/L (136-145)
--- NOTE | 2025-04-19 20:02 | XRay Report ---
Clinical History: Chest pain Technique: A frontal view of the chest was obtained Comparison is made to the prior examination dated 12/03/2024 Findings: There is right lower lobe opacity that could be due to pneumonia. There is also suspected pulmonary vascular congestion. The heart is mildly enlarged. There is a prosthetic cardiac valve. Sternal wires are present. No definite pneumothorax is seen. There is a small to moderate sized right pleural effusion. No fracture is noted. No foreign body is seen Impression: 1. Cardiomegaly and pulmonary vascular congestion 2. Possible right lower lobe pneumonia 3. Right pleural effusion ACT 112: Positive. There are findings on this exam that require communication between the performing entity and the patient following Patient Test Result Information Act ([place] ACT 112) guidelines. Electronically signed by Ayo Yee 04-19-2025 7:56 PM
[2025-04-19 21:47] LABS: Magnesium 2.6 mg/dl (1.7-2.4)
[2025-04-19] MEDS: FUROSEMIDE 40 MG/4 ML VIAL IV ONE ×2 (21:54→23:54)
[2025-04-19] MEDS: CALCIUM GLUCONATE 1,000 MG/60 ML BAG IV STA (21:54)
[2025-04-19 22:11] LABS: Alanine Aminotransferase 8.0 U/L (7-52); Albumin Level 3.7 gm/dl (3.4-5.0); Alkaline Phosphatase 95.0 U/L (34-104); Bilirubin,Total 0.5 mg/dl (0.2-1.0); Total Protein 7.1 gm/dl (6.0-8.3)
[2025-04-19 22:18] LABS: INR 1.1 (0.9-1.1); Prothrombin Time 11.4 Seconds (9.0-12.0)
--- NOTE | 2025-04-19 22:24 | History & Physical Report ---
Date of Service April 19, 2025 Assessment & Plan (1) Shortness of breath: Plan: Assessment and plan below following discussion of case with ED provider and reviewing patient history/pertinent normal/abnormal diagnostic test results. Shortness of breath Multifactorial Decompensated heart failure chronic right-sided heart failure History of cardiac cirrhosis Patient presenting with pulmonary congestion and ascites Secondary to medication noncompliance Patient stopped taking home diuretics to avoid pain from severe osteoarthritis of both knees if he had to stand up and walk to the bathroom to urinate. 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 Patient open to possibility of having maintaining indwelling Lara catheter at discharge to facilitate home diuretic compliance and to avoid knee pain from needing to stand up to urinate. Strict I/Os, daily weights, CHF education, fluid restriction Cardiology consult re: decompensated CHF Follow renal function on diuretic Rx Recheck serum potassium, hold potassium supplements for now May benefit from Nephrology input Ultrasound-guided therapeutic paracentesis during confinement (Hold Eliquis in anticipation of procedure. Eliquis usually held for at least 72 hours prior to procedure as per patient. Will request a.m. provider to clarify with IR in AM.) IV heparin while Eliquis on hold Doxycycline for CAP CT chest re: pleural effusion with infiltrate rule out complicated pneumonia May need pulmonology evaluation DVT prophylaxis. IV heparin DNR Text document was generated using [employer] voice recognition software. It may contain grammatical or spelling errors. Kindly contact undersigned for clarification of any documentation item in question. History of Present Illness Chief Complaint: Shortness of breath, fluid retention Primary Care Provider: Yuriy Dempsey MD History obtained from patient and records. Medical history significant for chronic right-sided heart failure (EF 65 to 70%, TTE 2024), A-fib on Eliquis, hypertension, history of bioprosthetic AVR/MV repair, hx streptococcal endocarditis status post treatment hx CVA, VENUS on CPAP, cirrhosis, CRI on Jardiance (baseline creatinine 1.7), history of BPH with LUTS, chronic anemia (baseline hemoglobin 8-9), chronic bilateral knee arthritis Last confinement December 2024 for streptococcal bacteremia secondary to presumptive endocarditis. Patient discharged on cefazolin course. Monthly outpatient therapeutic paracenteses at [facility] following G mica washer gluer recommendations since last month. Last paracenteses was last week 5 L ascitic fluid drained. Patient stopped taking home diuretic since last week to avoid need to go to bathroom to urinate. Patient has troubled by chronic bilateral knee pain every time he has to to go to the bathroom to pee. Patient noted progressive shortness of breath, abdominal distention, weight gain and fluid retention over the last few days. No chest pain. No abdominal pain. Bilateral leg swelling with usual leg redness as per patient. Cough productive of clear sputum. No fever, no chills. No aspiration. Not sure about sick contacts. Patient compliant with CPAP. Denies OTC NSAID intake. Patient brought to ER for evaluation. 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 Allergies Allergy/AdvReac Type Severity Reaction Status Date / Time amoxicillin Allergy Intermediate Rash Verified 01/26/25 09:30 cyclobenzaprine AdvReac Intermediate Rash Verified 01/26/25 09:30 Home Medications Medication Instructions Recorded Confirmed Type apixaban 5 mg tablet 5 mg PO QAM 12/05/23 04/20/25 History aspirin 81 mg capsule 81 mg PO QAM 12/05/23 04/20/25 History cholecalciferol (vitamin D3) 125 125 mcg PO DAILY 12/05/23 04/20/25 History mcg (5,000 unit) tablet (Vitamin D3) coenzyme Q10 100 mg capsule 100 mg PO DAILY 12/05/23 04/20/25 History (CoQ-10) magnesium oxide 400 mg (241.3 mg 400 mg PO DAILY #30 tabs 12/12/23 04/20/25 Rx magnesium) tablet empagliflozin 10 mg tablet 10 mg PO DAILY #30 tabs 11/12/24 04/20/25 Rx (Jardiance) allopurinol 100 mg tablet 100 mg PO DAILY 11/28/24 01/26/25 History ammonium lactate 12 % lotion 1 applic topical BID 11/28/24 04/20/25 History metoprolol succinate 100 mg 100 mg PO BID 11/28/24 04/20/25 History tablet,extended release 24 hr potassium chloride 20 mEq 20 meq PO DAILY 01/26/25 01/26/25 History tablet,extended release(part/cryst) allopurinol 100 mg tablet 100 mg PO DAILY 04/20/25 04/20/25 History (Zyloprim) torsemide 20 mg tablet 60 mg PO BID 04/20/25 History Past Med/Surg History Problem List (Updated 04/20/25 @ 03:18 by Alvarez Stacy MD) Decompensated heart failure Fluid overload (Acute) BPH w/o urinary obs/LUTS Incomplete bladder emptying Chronic renal failure (CRF), stage 3b Chronic heart failure with preserved ejection fraction Chronic hypoxic respiratory failure, on home oxygen therapy Urinary tract infection due to Proteus Streptococcal bacteremia Demand ischemia Severe sepsis with acute organ dysfunction Leukocytosis (Acute) Renal insufficiency (Acute) Fever (Acute) Elevated troponin (Acute) Fever S/P MVR (mitral valve replacement) S/P AVR (aortic valve replacement) Pickwickian syndrome Right-sided congestive heart failure Elevated troponin (Acute) Anemia (Acute) Shortness of breath (Acute) CHF (congestive heart failure) (Acute) Acute right-sided heart failure Sleep apnea History of endocarditis USHA (acute kidney injury) Scrotal erythema Chronic venous stasis Chronic atrial fibrillation Acute on chronic right-sided heart failure Prerenal azotemia Hypokalemia Hypokalemia Abnormal breath sounds Cerebellar ataxia Polyuria Bacteremia due to Enterococcus H/O heart valve replacement with bioprosthetic valve Gait instability RLS (restless legs syndrome) Excessive daytime sleepiness Screening PSA (prostate specific antigen) Nocturia Bacteremia due to Staphylococcus aureus (Acute 02/22/20) Cirrhosis of liver (Acute 02/28/20) Hematochezia (Acute 02/24/20) History of aortic valve replacement (Acute 03/07/20) History of mitral valve replacement (Acute 03/07/20) Hypervolemia (Acute 03/01/20) Injury of kidney (Acute 03/01/20) Intracranial septic embolism (Acute 02/22/20) Sleep apnea in adult Malnutrition DVT prophylaxis Heart failure Mitral regurgitation Severe aortic stenosis Endocarditis Acute hypokalemia (Acute) Alcohol use Generalized weakness (Acute) Heart murmur Hypokalemia Basal cell carcinoma Screening PSA (prostate specific antigen) Central positional vertigo Osteoarthritis of knee Medical History Atrial fibrillation Cerebellar ataxia (2020) Bilateral cataracts BPH (benign prostatic hyperplasia) Polyuria History of restless legs syndrome Gait instability since stroke, has a balance problem, uses a cane Hx of vertigo Chronic atrial fibrillation no caridoversion, follows with Hannah (12/12/23), takes eliquis Hx of basal cell carcinoma Hx of bacteremia (2019) USHA (acute kidney injury) (12/2023) recently hospitalized at [facility] "to drain fluid from my body" and was given IV lasix, which pt. 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, unsure of cause Cirrhosis of liver Dyspnea on exertion History of asthma Acute on chronic right-sided heart failure History of embolic stroke (2020) loss of balance, MRI showed new emboli in brain, currently has balance problems, no longer follows with neuro - takes eliquis Acute hypoxemic respiratory failure (03/01/20) hx Abnormal LFTs Benign essential hypertension Obstructive sleep apnea cpap with 2L oxygen - compliant Surgical History Hx of cataract extraction left Hx of basal cell carcinoma excision Hx of mitral valve replacement (02/2020) PSH- follows with Hannah at [facility] (12/12/23) Hx of aortic valve replacement (02/2020) PSH History of vasectomy Family History Father Heart disease Hypertension, Onset Age: 50 Kidney disease, Onset Age: 30 Kidney stones as young man Myocardial infarction Passed in 2006 with heart attack age 78 Brother Asthma Prostate cancer, Onset Age: 61 Treated Radiation and hormonal. Cancer younger brother, skin cancer Mother Cancer Skin cancer Brother Cancer skin cancer Denies family history of Ovarian cancer Diabetes Breast cancer Lung cancer Colorectal cancer Stroke Social History Smoking Status: Never smoker Tobacco Type: Cigarettes Second Hand Exposure: No; Do You Dip or Chew Tobacco: No; Hx Alcohol Use: No Hx Substance Use: No Preferred Language: Burkinan Communication Ability: Effective Communication Ability Comment: [employer] [place] Hearing Ability: Hard of Hearing County Engineer Required: No Beliefs That Will Affect Care: None marital status: Current Living Situation: Alone current occupational status: employed 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 How many Children do You have: 0 How many Children do You have Comment: 1 step child Feels Safe at Home: Yes Safety Concerns: Feels Safe At This Time Childhood Exposure to Second-Hand Smoke: No Seatbelt Use: always Sunscreen Use: Yes Assistive Devices: CPAP, Glasses and Oxygen - Continuous Review of Systems Review of Systems: As per HPI, all other systems reviewed and negative Physical Exam Physical Exam: GENERAL: uncomfortable, obese, episodic tachypnea SKIN: Pallor, warm HEENT: Bespectacled, pale palpebral conjunctivae, no ptosis, moist buccal mucosa NECK : Supple, distended neck veins, no tenderness CHEST : Decreased breath sounds, no tenderness HEART : RRR, no obvious murmurs ABDOMEN: Marked distention, nontender EXTREMITIES : Bilateral LE swelling with erythema (chronic as per patient)/no tenderness, palpable pulses, no other conspicuous deformities noted NEUROLOGIC : Coherent, no facial asymmetry, no other gross focality Results & Data Results & Data Vital Signs (Past 12 Hours) Vital Signs Temp Pulse Resp BP Pulse Ox O2 Del Method O2 Flow Rate 04/19/25 22:00 84 20 133/93 100 Nasal Cannula 2 04/19/25 21:42 89 17 124/80 98 Nasal Cannula 2 04/19/25 21:00 96 H 22 130/81 100 Nasal Cannula 2 04/19/25 20:30 96 H 22 133/78 100 Nasal Cannula 2 04/19/25 20:00 96 H 23 129/74 99 Nasal Cannula 2 04/19/25 19:42 96 H 16 111/84 97 Nasal Cannula 2 04/19/25 19:42 96 H 04/19/25 19:24 125/77 04/19/25 19:24 83 26 H 125/77 100 Nasal Cannula 2 04/19/25 18:55 100 Nasal Cannula 2 04/19/25 18:17 18 04/19/25 18:17 37.2 C 98 H 18 156/108 H 98 Nasal Cannula 2 Laboratory Results Laboratory Results WBC 6.40 K/ul (4.8-10.8) 04/19/25 18:57 RBC 3.54 M/uL (4.70-6.10) L 04/19/25 18:57 Hgb 9.1 g/dL (14.0-18.0) L 04/19/25 18:57 Hct 31.0 % (42.0-52.0) L 04/19/25 18:57 MCV 87.6 fL (80.0-100.0) 04/19/25 18:57 MCH 25.7 pg (25.0-34.0) 04/19/25 18:57 MCHC 29.4 g/dL (32.0-36.0) L 04/19/25 18:57 RDW Std Deviation 54.9 fL (36.4-46.3) H 04/19/25 18:57 RDW Coeff of Arely 17.2 % (11.5-14.5) H 04/19/25 18:57 Plt Count 225 K/uL (130-400) 04/19/25 18:57 MPV 10.3 fL (9.4-12.4) 04/19/25 18:57 Immature Gran % (Auto) 0.5 % 04/19/25 18:57 Neut % (Auto) 75.9 % 04/19/25 18:57 Lymph % (Auto) 7.8 % 04/19/25 18:57 [place] % (Auto) 11.7 % 04/19/25 18:57 Eos % (Auto) 3.8 % 04/19/25 18:57 Baso % (Auto) 0.3 % 04/19/25 18:57 Neut # (Auto) 4.86 K/uL (1.40-6.50) 04/19/25 18:57 Lymph # (Auto) 0.50 K/uL (1.20-3.40) L 04/19/25 18:57 [place] # (Auto) 0.75 K/uL (0.11-0.59) H 04/19/25 18:57 Eos # (Auto) 0.24 K/uL (0.00-0.50) 04/19/25 18:57 Baso # (Auto) 0.02 K/uL (0.00-0.20) 04/19/25 18:57 Immature Gran # (Auto) 0.03 K/uL (0.01-0.20) 04/19/25 18:57 PT 11.4 Seconds (9.0-12.0) 04/19/25 19:05 INR 1.1 (0.9-1.1) 04/19/25 19:05 Sodium 140 mmol/L (136-145) 04/19/25 18:57 Potassium 5.5 mmol/L (3.5-5.1) H 04/19/25 18:57 Chloride 104 mmol/L (98-107) 04/19/25 18:57 Carbon Dioxide 30 mmol/L (21-32) 04/19/25 18:57 Anion Gap 6 (3-11) 04/19/25 18:57 BUN 34 mg/dl (6-23) H 04/19/25 18:57 Creatinine 1.91 mg/dl (0.6-1.4) H 04/19/25 18:57 Est Cr Clr Drug Dosing 47.3 ml/min 04/19/25 18:57 eGFR 38.18 04/19/25 18:57 BUN/Creatinine Ratio 17.8 (10-20) 04/19/25 18:57 Glucose 106 mg/dl (70-99(Fasting)) H 04/19/25 18:57 Calcium 8.8 mg/dl (8.6-10.3) 04/19/25 18:57 Magnesium 2.6 mg/dl (1.7-2.4) H 04/19/25 18:57 Total Bilirubin 0.5 mg/dl (0.2-1.0) 04/19/25 18:57 Direct Bilirubin 0.2 mg/dl (0-0.2) 04/19/25 18:57 AST 18 U/L (13-39) 04/19/25 18:57 ALT 8 U/L (7-52) 04/19/25 18:57 Alkaline Phosphatase 95 U/L (34-104) 04/19/25 18:57 Troponin I High Sens 17.5 pg/ml (0-20) 04/19/25 18:57 B-Natriuretic Peptide 1339 pg/ml (0-100) H 04/19/25 18:57 Total Protein 7.1 gm/dl (6.0-8.3) 04/19/25 18:57 Albumin 3.7 gm/dl (3.4-5.0) 04/19/25 18:57 Lipase 12 U/L (11-82) 04/19/25 18:57 Impressions Chest X-Ray 04/19/25 18:41 Clinical History: Chest pain Technique: A frontal view of the chest was obtained Comparison is made to the prior examination dated 12/03/2024 Findings: There is right lower lobe opacity that could be due to pneumonia. There is also suspected pulmonary vascular congestion. The heart is mildly enlarged. There is a prosthetic cardiac valve. Sternal wires are present. No definite pneumothorax is seen. There is a small to moderate sized right pleural effusion. No fracture is noted. No foreign body is seen Impression: 1. Cardiomegaly and pulmonary vascular congestion 2. Possible right lower lobe pneumonia 3. Right pleural effusion ACT 112: Positive. There are findings on this exam that require communication between the performing entity and the patient following Patient Test Result Information Act ([place] ACT 112) guidelines. Electronically signed by Ayo Yee 04-19-2025 7:56 PM Diagnostic Findings EKG as per my interpretation :Rate 95, RAD, 1 AVB, inferior infarct, no ischemia
[2025-04-19] MEDS: ACETAMINOPHEN 1,000 MG/100 ML VIAL IV STA (22:45)
[2025-04-19 22:48] LABS: Influenza A virus by PCR Negative (Neg); Influenza B virus by PCR Negative (Neg); SARS CoV2 RNA(COVID-19) Ceph NEGATIVE (Negative)
[2025-04-19] MEDS ORDERED: ACETAMINOPHEN 500 MG TAB PO PRN (22:55)
[2025-04-19] MEDS ORDERED: PROMETHAZINE 6.25 MG/50.25 ML BAG IV PRN (22:55)
[2025-04-19] MEDS ORDERED: HYDROmorphone INJ 0.5 MG/0.5 ML SYR IV PRN (22:55)
[2025-04-19] MEDS: ALBUMIN 25% 12.5 GM/50 ML VIAL IV ONE (23:54)
[2025-04-20] MEDS: FUROSEMIDE INJ 20 MG/2 ML VIAL IV ONE (00:01)
[2025-04-20] MEDS: LIDOCAINE 2% JELLY 5 ML TUBE EXT ONE (00:02)
--- NOTE | 2025-04-20 00:06 | Emergency Department Note ---
History of Present Illness General Chief Complaint: Swelling/Edema to Extremity Stated Complaint: FLUID RETENTION Time Seen by Provider: 04/19/25 18:40 History of Present Illness Provider Complaint: shortness of breath Onset (ago): day(s) (4) Consistency/Duration: + progressively worsening Relieved By: + upright position Exacerbated By: + lying flat Known history of: congestive heart failure and other (Cirrhosis) Associated symptoms: + orthopnea; no chest pain, no fever, no cough, no wheezing, no sputum production, no paresthesias, no hemoptysis, no nausea/vomiting or no abdominal pain HPI Narrative: Patient is on Eliquis. Patient reports last Eliquis dose was this morning. Patient reports he had a paracentesis done last week. Home Medications Medication Instructions Recorded Confirmed Type apixaban 5 mg tablet 5 mg PO QAM 12/05/23 01/26/25 History aspirin 81 mg capsule 81 mg PO QAM 12/05/23 01/26/25 History cholecalciferol (vitamin D3) 125 125 mcg PO DAILY 12/05/23 01/26/25 History mcg (5,000 unit) tablet (Vitamin D3) coenzyme Q10 100 mg capsule 100 mg PO DAILY 12/05/23 01/26/25 History (CoQ-10) magnesium oxide 400 mg (241.3 mg 400 mg PO DAILY #30 tabs 12/12/23 01/26/25 Rx magnesium) tablet empagliflozin 10 mg tablet 10 mg PO DAILY #30 tabs 11/12/24 01/26/25 Rx (Jardiance) torsemide 20 mg tablet 40 mg (2 x 20 mg) PO QAM #30 tabs 11/12/24 01/26/25 Rx allopurinol 100 mg tablet 100 mg PO DAILY 11/28/24 01/26/25 History ammonium lactate 12 % lotion 1 applic topical BID 11/28/24 01/26/25 History metoprolol succinate 100 mg 100 mg PO BID 11/28/24 01/26/25 History tablet,extended release 24 hr potassium chloride 20 mEq meq PO 01/26/25 01/26/25 History tablet,extended release(part/cryst) Allergies Allergy/AdvReac Type Severity Reaction Status Date / Time amoxicillin Allergy Intermediate Rash Verified 01/26/25 09:30 cyclobenzaprine AdvReac Intermediate Rash Verified 01/26/25 09:30 Past Med/Surg History Problem List (Updated 04/20/25 @ 00:06 by Catracho Ivy MD) Fluid overload (Acute) BPH w/o urinary obs/LUTS Incomplete bladder emptying Chronic renal failure (CRF), stage 3b Chronic heart failure with preserved ejection fraction Chronic hypoxic respiratory failure, on home oxygen therapy Urinary tract infection due to Proteus Streptococcal bacteremia Demand ischemia Severe sepsis with acute organ dysfunction Leukocytosis (Acute) Renal insufficiency (Acute) Fever (Acute) Elevated troponin (Acute) Fever S/P MVR (mitral valve replacement) S/P AVR (aortic valve replacement) Pickwickian syndrome Right-sided congestive heart failure Elevated troponin (Acute) Anemia (Acute) Shortness of breath (Acute) CHF (congestive heart failure) (Acute) Acute right-sided heart failure Sleep apnea History of endocarditis USHA (acute kidney injury) Scrotal erythema Chronic venous stasis Chronic atrial fibrillation Acute on chronic right-sided heart failure Prerenal azotemia Hypokalemia Hypokalemia Abnormal breath sounds Cerebellar ataxia Polyuria Bacteremia due to Enterococcus H/O heart valve replacement with bioprosthetic valve Gait instability RLS (restless legs syndrome) Excessive daytime sleepiness Screening PSA (prostate specific antigen) Nocturia Bacteremia due to Staphylococcus aureus (Acute 02/22/20) Cirrhosis of liver (Acute 02/28/20) Hematochezia (Acute 02/24/20) History of aortic valve replacement (Acute 03/07/20) History of mitral valve replacement (Acute 03/07/20) Hypervolemia (Acute 03/01/20) Injury of kidney (Acute 03/01/20) Intracranial septic embolism (Acute 02/22/20) Sleep apnea in adult Malnutrition DVT prophylaxis Heart failure Mitral regurgitation Severe aortic stenosis Endocarditis Acute hypokalemia (Acute) Alcohol use Generalized weakness (Acute) Heart murmur Hypokalemia Basal cell carcinoma Screening PSA (prostate specific antigen) Central positional vertigo Osteoarthritis of knee Medical History Atrial fibrillation Cerebellar ataxia (2020) Bilateral cataracts BPH (benign prostatic hyperplasia) Polyuria History of restless legs syndrome Gait instability since stroke, has a balance problem, uses a cane Hx of vertigo Chronic atrial fibrillation no caridoversion, follows with Hannah (12/12/23), takes eliquis Hx of basal cell carcinoma Hx of bacteremia (2019) USHA (acute kidney injury) (12/2023) recently hospitalized at [facility] "to drain fluid from my body" and was given IV lasix, which pt. 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, unsure of cause Cirrhosis of liver Dyspnea on exertion History of asthma Acute on chronic right-sided heart failure History of embolic stroke (2020) loss of balance, MRI showed new emboli in brain, currently has balance problems, no longer follows with neuro - takes hector Acute hypoxemic respiratory failure (03/01/20) hx Abnormal LFTs Benign essential hypertension Obstructive sleep apnea cpap with 2L oxygen - compliant Surgical History Hx of cataract extraction left Hx of basal cell carcinoma excision Hx of mitral valve replacement (02/2020) PSH- follows with Hannah at [facility] (12/12/23) Hx of aortic valve replacement (02/2020) PSH History of vasectomy Family History Father Heart disease Hypertension, Onset Age: 50 Kidney disease, Onset Age: 30 Kidney stones as young man Myocardial infarction Passed in 2006 with heart attack age 78 Brother Asthma Prostate cancer, Onset Age: 61 Treated Radiation and hormonal. Cancer younger brother, skin cancer Mother Cancer Skin cancer Brother Cancer skin cancer Denies family history of Ovarian cancer Diabetes Breast cancer Lung cancer Colorectal cancer Stroke Social History Smoking Status: Never smoker Tobacco Type: Cigarettes Second Hand Exposure: No; Do You Dip or Chew Tobacco: No; Hx Alcohol Use: No Hx Substance Use: No Preferred Language: Uzbek Communication Ability: Effective Communication Ability Comment: [place] Hearing Ability: Hard of Hearing Superintendent Of Generation Required: No Beliefs That Will Affect Care: None marital status: Current Living Situation: Spouse current occupational status: employed 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 How many Children do You have: 0 How many Children do You have Comment: 1 step child Feels Safe at Home: Yes Childhood Exposure to Second-Hand Smoke: No Seatbelt Use: always Sunscreen Use: Yes Assistive Devices: Cane and Walker Physical Exam 2 Vital Signs: Vital Signs - 24 hr 04/19/25 18:17 04/19/25 18:17 04/19/25 18:55 Temperature 37.2 C Temperature Source Temporal Artery Sc an Pulse Rate 98 H Pulse Rate from Sp O2 Sensor Respiratory Rate 18 18 Blood Pressure 156/108 H Blood Pressure Silvia n 124 Pulse Oximetry 98 100 Oxygen Delivery Me thod Nasal Cannula Nasal Cannula Oxygen Flow Rate 2 2 Sepsis Recent Feve r Within 48 Hours No Sepsis New/Unexpla ined Change in Men rohini Status N/A Sepsis Action Take n by Nursing No Action Required 04/19/25 19:24 04/19/25 19:24 04/19/25 19:42 Temperature Temperature Source Pulse Rate 83 96 H Pulse Rate from Sp O2 Sensor 96 H Respiratory Rate 26 H Blood Pressure 125/77 125/77 Blood Pressure Silvia n 93 96 Pulse Oximetry 100 Oxygen Delivery Me thod Nasal Cannula Oxygen Flow Rate 2 Sepsis Recent Feve r Within 48 Hours Sepsis New/Unexpla ined Change in Men rohini Status Sepsis Action Take n by Nursing 04/19/25 19:42 04/19/25 20:00 04/19/25 20:30 Temperature Temperature Source Pulse Rate 96 H 96 H 96 H Pulse Rate from Sp O2 Sensor 96 H 96 H 96 H Respiratory Rate 16 23 22 Blood Pressure 111/84 129/74 133/78 Blood Pressure Silvia n 93 92 96 Pulse Oximetry 97 99 100 Oxygen Delivery Me thod Nasal Cannula Nasal Cannula Nasal Cannula Oxygen Flow Rate 2 2 2 Sepsis Recent Feve r Within 48 Hours Sepsis New/Unexpla ined Change in Men rohini Status Sepsis Action Take n by Nursing 04/19/25 21:00 04/19/25 21:42 04/19/25 22:00 Temperature Temperature Source Pulse Rate 96 H 89 84 Pulse Rate from Sp O2 Sensor 96 H 97 H 96 H Respiratory Rate 22 17 20 Blood Pressure 130/81 124/80 133/93 Blood Pressure Silvia n 97 94 106 Pulse Oximetry 100 98 100 Oxygen Delivery Me thod Nasal Cannula Nasal Cannula Nasal Cannula Oxygen Flow Rate 2 2 2 Sepsis Recent Feve r Within 48 Hours Sepsis New/Unexpla ined Change in Men rohini Status Sepsis Action Take n by Nursing Physical Exam: Physical Exam GENERAL: oriented to person, place, and time. appears well-developed and well- nourished. HENT: Exam performed. - Head: Normocephalic and atraumatic. EYES: Conjunctivae and EOM are normal. Right eye exhibits no discharge. Left eye exhibits no discharge. Bilateral scleral icterus. NECK: Normal range of motion. Neck supple. No JVD present. CV: Normal rate, regular rhythm, normal heart sounds and intact distal pulses. 3+ pitting edema of the bilateral lower extremities. Palpable radial pulses bue. PULM/CHEST: Rales bilaterally. ABD: The abdomen is distended. Fluid wave present there is no tenderness. NEURO: Motor and sensation grossly intact. No asterixis Course Course 184: The patient was evaluated in room A2. A complete history and physical exam was performed Cardiac monitoring: An order was placed for continuous cardiac monitoring. The monitor shows a rate of 90 with sinus rhythm interpreted by ne 0: Vital signs stable. Labs show potassium of 5.5. BNP is elevated. Troponin normal. Creatinine at baseline. Chest x-ray shows fluid overloaded. Formal chest x-ray shows possible pneumonia. Patient be treated with Lasix. No paracentesis to be done at bedside given the patient did take Eliquis this morning. Patient given calcium gluconate 1 g. Discussed the case with admitting team Dr. Wiseman. He states he will evaluate the patient before giving any antibiotics at this time. Administered Medications Discontinued Medications Furosemide (Furosemide 40 Mg/4 Ml Vial) 60 mg IV ONE ONE Stop: 04/19/25 22:03 Last Admin: 04/19/25 23:54 Dose: 60 mg Documented By: JUMA Calcium Gluconate () 1,000 mg in 60 mls @ 240 mls/hr IV NOW STA Stop: 04/19/25 21:32 Last Infusion: 04/19/25 22:38 Dose: Infused Documented By: Admin: 04/19/25 21:54 Dose: 240 mls/hr Documented By: ISH Albumin Human (Albumin 25%) 12.5 gm in 50 mls @ 50 mls/hr IV ONE ONE Stop: 04/19/25 23:01 Last Admin: 04/19/25 23:54 Dose: 50 mls/hr Documented By: JUMA Acetaminophen (Ofirmev) 1,000 mg in 100 mls @ 400 mls/hr IV NOW STA Stop: 04/19/25 22:38 Last Admin: 04/19/25 22:45 Dose: 400 mls/hr Documented By: ISH Medical Decision Making Laboratory Data Attestation: I reviewed the patient's lab results. 04/19/25 18:57 04/19/25 18:57 Lab Results 04/19/25 04/19/25 04/19/25 Range/Units 18:57 19:05 21:57 WBC 6.40 (4.8-10.8) K/ul RBC 3.54 L (4.70-6.10) M/uL Hgb 9.1 L (14.0-18.0) g/dL Hct 31.0 L (42.0-52.0) % MCV 87.6 (80.0-100.0) fL MCH 25.7 (25.0-34.0) pg MCHC 29.4 L (32.0-36.0) g/dL RDW Std Deviation 54.9 H (36.4-46.3) fL RDW Coeff of Arely 17.2 H (11.5-14.5) % Plt Count 225 (130-400) K/uL MPV 10.3 (9.4-12.4) fL Immature Gran % (Auto) 0.5 % Neut % (Auto) 75.9 % Lymph % (Auto) 7.8 % [place] % (Auto) 11.7 % Eos % (Auto) 3.8 % Baso % (Auto) 0.3 % Neut # (Auto) 4.86 (1.40-6.50) K/uL Lymph # (Auto) 0.50 L (1.20-3.40) K/uL [place] # (Auto) 0.75 H (0.11-0.59) K/uL Eos # (Auto) 0.24 (0.00-0.50) K/uL Baso # (Auto) 0.02 (0.00-0.20) K/uL Immature Gran # (Auto) 0.03 (0.01-0.20) K/uL PT 11.4 (9.0-12.0) Seconds INR 1.1 (0.9-1.1) Sodium 140 (136-145) mmol/L Potassium 5.5 H (3.5-5.1) mmol/L Chloride 104 (98-107) mmol/L Carbon Dioxide 30 (21-32) mmol/L Anion Gap 6 (3-11) BUN 34 H (6-23) mg/dl Creatinine 1.91 H (0.6-1.4) mg/dl Est Cr Clr Drug Dosing 47.3 ml/min eGFR 38.18 BUN/Creatinine Ratio 17.8 (10-20) Glucose 106 H (70-99(Fasting)) mg/dl Calcium 8.8 (8.6-10.3) mg/dl Magnesium 2.6 H (1.7-2.4) mg/dl Total Bilirubin 0.5 (0.2-1.0) mg/dl Direct Bilirubin 0.2 (0-0.2) mg/dl AST 18 (13-39) U/L ALT 8 (7-52) U/L Alkaline Phosphatase 95 (34-104) U/L Troponin I High Sens 17.5 (0-20) pg/ml B-Natriuretic Peptide 1339 H (0-100) pg/ml Total Protein 7.1 (6.0-8.3) gm/dl Albumin 3.7 (3.4-5.0) gm/dl Lipase 12 (11-82) U/L SARS-CoV-2 (PCR) NEGATIVE (Negative) Influenza Type A (PCR) Negative (Neg) Influenza Type B (PCR) Negative (Neg) RSV (RT-PCR) Negative (Neg) Imaging Data Attestation: I personally reviewed and interpreted this imaging study as follows: My Impression: Chest x-ray: Cardiomegaly with cephalization Radiologist's Impression: Chest X-Ray 04/19/25 18:41 Clinical History: Chest pain Technique: A frontal view of the chest was obtained Comparison is made to the prior examination dated 12/03/2024 Findings: There is right lower lobe opacity that could be due to pneumonia. There is also suspected pulmonary vascular congestion. The heart is mildly enlarged. There is a prosthetic cardiac valve. Sternal wires are present. No definite pneumothorax is seen. There is a small to moderate sized right pleural effusion. No fracture is noted. No foreign body is seen Impression: 1. Cardiomegaly and pulmonary vascular congestion 2. Possible right lower lobe pneumonia 3. Right pleural effusion ACT 112: Positive. There are findings on this exam that require communication between the performing entity and the patient following Patient Test Result Information Act ([place] ACT 112) guidelines. Electronically signed by Ayo Yee 04-19-2025 7:56 PM ECG Data Attestation: I personally reviewed and interpreted this ECG as follows: Interpretation: Sinus rhythm with a rate of 97. MN 212 QRS [address] elevation or ST depression. Baseline wander and artifact. First-degree AV block present. [facility] Narrative 184: The patient was evaluated in room A2. A complete history and physical exam was performed Cardiac monitoring: An order was placed for continuous cardiac monitoring. The monitor shows a rate of 90 with sinus rhythm interpreted by me 2130: Vital signs stable. Labs show potassium of 5.5. BNP is elevated. Troponin normal. Creatinine at baseline. Chest x-ray shows fluid overloaded. Formal chest x-ray shows possible pneumonia. Patient be treated with Lasix. No paracentesis to be done at bedside given the patient did take Eliquis this morning. Patient given calcium gluconate 1 g. Discussed the case with admitting team Dr. Wiseman. He states he will evaluate the patient before giving any antibiotics at this time. Impression & Plan Fluid overload Discharge Plan Visit Data Chief Complaint: Swelling/Edema to Extremity Stated Complaint: FLUID RETENTION ED Provider: Catracho Ivy Discharge Problem: Fluid overload Patient Disposition: Admitted As Inpatient Condition: Fair Forms Stand Alone Forms: [facility] Prescriptions Prescriptions: No Action potassium chloride 20 mEq tablet,ER particles/crystals PO coenzyme Q10 [CoQ-10] 100 mg Capsule 100 mg PO DAILY cholecalciferol (vitamin D3) [Vitamin D3] 125 mcg (5,000 unit) Tablet 125 mcg PO DAILY apixaban 5 mg Tablet 5 mg PO QAM Rx Instructions: per pt he only takes one tab daily aspirin 81 mg Capsule 81 mg PO QAM magnesium oxide 400 mg (241.3 mg magnesium) Tablet 400 mg PO DAILY Qty: 30 1RF Jardiance 10 mg Tablet 10 mg PO DAILY Qty: 30 0RF torsemide 20 mg Tablet 40 mg PO QAM Qty: 30 1RF ammonium lactate 12 % lotion 1 applic TOPICAL BID Rx Instructions: Apply to legs twice dialy allopurinol 100 mg tablet 100 mg PO DAILY metoprolol succinate 100 mg tablet extended release 24 hr 100 mg PO BID Referrals Referrals: Yuriy Dempsey MD [Primary Care Provider] -
[2025-04-20] MEDS: Heparin IV Adult Wt-Based Low-Dose *NO* INITIAL Bolus Protocol IV SCH (00:44)
[2025-04-20] MEDS: HEPARIN 25000 UNIT/500 ML D5W 25,000 UNITS/500 ML BAG IV SCH (00:56)
[2025-04-20] MEDS: IPRATROPIUM BROMIDE NEB SOLN 0.02% 0.5MG/2.5ML VIAL INH STA (02:36)
[2025-04-20] MEDS: LEVALBUTEROL 1.25 MG/3 ML NEB NEB STA (02:36)
[2025-04-20] MEDS ORDERED: DICLOFENAC SOD 1% GEL 100 GM TUBE EXT PRN (03:22)
[2025-04-20 07:44] LABS: Hematocrit (blood only) 30.8 % (42.0-52.0); Hemoglobin 8.6 g/dL (14.0-18.0); Immature Granulocytes # (auto) 0.02 K/uL (0.01-0.20); Immature Granulocytes % (auto) 0.4 %; Mean Corpuscular Hemoglobin 24.7 pg (25.0-34.0); Mean Corpuscular Volume 88.5 fL (80.0-100.0); Platelet Count 216 K/uL (130-400); RDW Standard Deviation 55.7 fL (36.4-46.3); Red Blood Count 3.48 M/uL (4.70-6.10); White Blood Count 5.61 K/ul (4.8-10.8)
--- NOTE | 2025-04-20 07:50 | CT Scan Report ---
EXAM: CT chest diagnostic wo con CLINICAL HISTORY: pleural effusion, pnx TECHNIQUE: Contiguous axial CT images of the chest were acquired without administration of intravenous contrast. Coronal and sagittal reconstructions were obtained. One of the following dose reduction techniques were utilized for this exam: Automated exposure control, adjustment of the mA and/or kV according to patient size, use of iterative reconstruction. COMPARISON: Correlation with the 04/19/2025 18:30:00 CAREER PLACEMENT SERVICES COUNSELOR chest X-ray. FINDINGS: Lungs: No evidence of consolidation focal lesions. No pulmonary nodules or masses are identified. No evidence of interstitial lung disease or emphysema. Moderate right pleural effusion with associated subsegmental compressive atelectasis of the right lower lobe. Trace left pleural effusion. Bibasilar streaky atelectasis and scarring in the right upper lobe. Mediastinum: The mediastinum is normal in size and contour. Multiple small mediastinal lymphadenopathies. Multiple left axillary lymphadenopathies, Ultarsound is needed. There is mild cardiomegaly with mitral and aortic prosthetic valves. Hilar Structures: The hilar structures appear normal without enlargement or abnormality. Atheromatous calcifications of the aorta and coronary arteries. Trachea and Main Bronchi: The trachea and main bronchi are patent without evidence of obstruction or abnormality. Chest Wall: The chest wall is unremarkable with no evidence of soft tissue or bony abnormalities. Median sternotomy wires are seen. Upper Abdomen: [id number] ascites. Liver cirrhosis. Bones: No evidence of fracture or lytic/sclerotic lesions. Moderate thoracic spondylosis. IMPRESSION: Moderate right pleural effusion with associated subsegmental compressive atelectasis of the right lower lobe. Trace left pleural effusion. Bibasilar streaky atelectasis and scarring in the right upper lobe. Mild cardiomegaly. Multiple small mediastinal lymphadenopathies. Multiple left axillary lymphadenopathies, Ultrasound is needed. Moderate thoracic spondylosis. [id number] ascites. Liver cirrhosis. Electronically signed by Cody Rowell 04-20-2025 07:49 AM
[2025-04-20 07:58] LABS: Alanine Aminotransferase 8.0 U/L (7-52); Albumin Globulin Ratio 1.2 (0.9-2); Albumin Level 3.7 gm/dl (3.4-5.0); Alkaline Phosphatase 90.0 U/L (34-104); Anion Gap 5.0 (3-11); Bilirubin,Total 0.5 mg/dl (0.2-1.0); Blood Urea Nitrogen 32.0 mg/dl (6-23); Calcium 8.7 mg/dl (8.6-10.3); Carbon Dioxide 31.0 mmol/L (21-32); Chloride 105.0 mmol/L (98-107); Creatinine Clr Calc Pharmacy 46.3 ml/min; Globulin 3.2 gm/dl (2.5-4.0); Glucose 114.0 mg/dl (70-99(Fasting)); Potassium 4.6 mmol/L (3.5-5.1); Sodium 141.0 mmol/L (136-145); Total Protein 6.9 gm/dl (6.0-8.3)
[2025-04-20 08:10] LABS: ANTI-Xa, UFH(UnfractionatedHep 0.31 IU/ml (0.3-0.7)
[2025-04-20 08:13] LABS: Thyroid Stimulating Hormone 5.763 uIu/ml (0.300-4.500)
[2025-04-20] MEDS: METOPROLOL SUCC 50MG EXT REL TAB PO SCH (08:16)
[2025-04-20] MEDS: AMMONIUM LACTATE 12% LOTION 225 GM BTL EXT SCH (08:17)
[2025-04-20] MEDS: FUROSEMIDE 40 MG/4 ML VIAL IV SCH (08:19)
[2025-04-20 08:47] LABS: T4 Free Thyroxine 0.88 ng/dl (0.61-1.60)
--- NOTE | 2025-04-20 09:15 | Cardiology Consultation ---
Date of Consultation April 20, 2025 Assessment & Plan (1) Acute on chronic diastolic heart failure with preserved ejection fraction: (2) Acute on chronic respiratory failure with hypoxia and hypercapnia: (3) Chronic atrial flutter: (4) S/P MVR (mitral valve replacement): (5) S/P AVR (aortic valve replacement): (6) Ascites: Plan Patient is a 65 year old male with complex history of HFpEF, right heart failure, chronic respiratory failure, history of AVR and MVR with history of endocarditis, recurrent ascites, and non compliance with diuretics who presented to [facility] with worsening SOB/fluid retention consistent with acute on chronic HFpEF and acute right sided HF. Plan: Ongoing IV diuresis needed - continue furosemide 60 mg IV BID Monitor I+O's Daily weight with standing scale (if able) Monitor renal function and electrolytes Potassium goal 4-5 consider abdominal US to evaluate ascites and consider repeat paracentesis Eliquis on Hold. (last dose 12/15 in AM) On IV heparin for stroke prophylaxis with chronic afib. Continue metoprolol succinate 100 mg BID History of AVR and MVR with endocarditis in November 2024 -no symptoms to suggest endocarditis at this time -update echo Further recommendations pending evaluation and discussion with Dr. Alas Case discussed with Dr. Alas I spent a total of 60 minutes on the date of service in preparation, delivery, and documentation of the care provided to this patient, excluding any time spent in the performance of separately billed services. Chelsey Melgar PA-C Department of Cardiology, [facility] This chart was completed in part utilizing Speech Voice Recognition Software. Grammatical errors, random word insertions, pronoun errors, and incomplete sentences are an occasional consequence of this system due to software limitations, ambient noise, and hardware issues. Any formal questions or concerns about the content, text, or information contained within the body of this dictation should be directly addressed to the provider for clarification. Supervising Physician Co-Signing Physician Notes Patient was seen and personally examined chart and records reviewed. 65-year-old male presenting with acute on chronic right heart failure with massive ascites. Underlying history of pickwickian syndrome hypoventilation and chronic right heart failure superimposed on valvular heart disease with prior aortic and mitral valve replacement. Recent large volume ascites removal with paracentesis. Weights reflect at least 8 to 20 kg weight gain over the past 6 months with patient noting diuretic noncompliance Plan as outlined above continue IV diuretics. Aldosterone antagonist contraindicated given degree of renal insufficiency in past hyperkalemia Treat hypoxia/hypoventilation. May need thoracentesis. History of Present Illness Reason for Consultation: Acute on chronic HFpEF Requesting Physician: [facility] Hospitalist Attending Physician: Dr. Alas History of Present Illness Patient is a complex 65 year old male presenting to [facility] with complaints of worsening SOB, fluid overload. Known to [facility] - follows with Dr. Young. History includes: 1. 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 In addition to mitral valve endocarditis the patient was found to have severe aortic valve stenosis which is what prompted the surgical aortic valve replacement 3. Invasive coronary angiography performed [facility] 02/23/2020 revealed no obstructive coronary artery disease 4. Postoperative and now permanent atrial fibrillation 5. 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 CKD 7. November,: Step bacteremia, TAYLOR concerning for MV vegetation versus retained suture, mild periprosthetic MR , completed 6 weeks of cefazolin 8. hepatic congestion with ascites - cirrhosis vs right heart failure - recurrent paracentesis - monthly Patient reports worsening fluid retention over the last 1-2 months. He admits to non compliance with his diuretic therapy often not taking it at all due to having to get out of his chair to urinate. He has chronic diffuse pain and finds it difficult to stand/walk. He is prescribed torsemide 60 mg BID, but admits to only take 60 mg in the AM "sometimes". He recently had paracentesis x2 due to abdominal ascites. Follows with hepatology. 5.3 L removed on 04/14 He reports this aided his symptoms of abdominal pressure, but did not aid his scrotal edema or SOB. Due to ongoing fluid retention, worsening symptoms he came ot the ER for evaluation. He was started on IV lasix and has received multiple doses at the time of evaluation. Unfortunately I+O's have not been measured since admission. Not able to stand to be weighed. He reports SOB has improved since admission. Ongoing abdominal distention noted and groin swelling. No fever or chills. No chest pain. His Eliquis is on hold due to possible paracentesis. On IV heparin. Last dose of Eliquis was yesterday (Thursday 04/19) morning. Allergies Allergy/AdvReac Type Severity Reaction Status Date / Time amoxicillin Allergy Intermediate Rash Verified 01/26/25 09:30 cyclobenzaprine AdvReac Intermediate Rash Verified 01/26/25 09:30 Home Medications Medication Instructions Recorded Confirmed Type apixaban 5 mg tablet 5 mg PO QAM 12/05/23 04/20/25 History aspirin 81 mg capsule 81 mg PO QAM 12/05/23 04/20/25 History cholecalciferol (vitamin D3) 125 125 mcg PO DAILY 12/05/23 04/20/25 History mcg (5,000 unit) tablet (Vitamin D3) coenzyme Q10 100 mg capsule 100 mg PO DAILY 12/05/23 04/20/25 History (CoQ-10) magnesium oxide 400 mg (241.3 mg 400 mg PO DAILY #30 tabs 12/12/23 04/20/25 Rx magnesium) tablet empagliflozin 10 mg tablet 10 mg PO DAILY #30 tabs 11/12/24 04/20/25 Rx (Jardiance) allopurinol 100 mg tablet 100 mg PO DAILY 11/28/24 01/26/25 History ammonium lactate 12 % lotion 1 applic topical BID 11/28/24 04/20/25 History metoprolol succinate 100 mg 100 mg PO BID 11/28/24 04/20/25 History tablet,extended release 24 hr potassium chloride 20 mEq 20 meq PO DAILY 01/26/25 01/26/25 History tablet,extended release(part/cryst) allopurinol 100 mg tablet 100 mg PO DAILY 04/20/25 04/20/25 History (Zyloprim) torsemide 20 mg tablet 60 mg PO BID 04/20/25 History Patient History Medical History Atrial fibrillation Cerebellar ataxia (2020) Bilateral cataracts BPH (benign prostatic hyperplasia) Polyuria History of restless legs syndrome Gait instability since stroke, has a balance problem, uses a cane Hx of vertigo Chronic atrial fibrillation no caridoversion, follows with Hannah (12/12/23), takes eliquis Hx of basal cell carcinoma Hx of bacteremia (2019) USHA (acute kidney injury) (12/2023) recently hospitalized at [facility] "to drain fluid from my body" and was given IV lasix, which pt. 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, unsure of cause Cirrhosis of liver Dyspnea on exertion History of asthma Acute on chronic right-sided heart failure History of embolic stroke (2020) loss of balance, MRI showed new emboli in brain, currently has balance problems, no longer follows with neuro - takes eliquis Acute hypoxemic respiratory failure (03/01/20) hx Abnormal LFTs Benign essential hypertension Obstructive sleep apnea cpap with 2L oxygen - compliant Surgical History Hx of cataract extraction left Hx of basal cell carcinoma excision Hx of mitral valve replacement (02/2020) PSH- follows with Hannah at [facility] (12/12/23) Hx of aortic valve replacement (02/2020) PSH History of vasectomy Family History Father Heart disease Hypertension, Onset Age: 50 Kidney disease, Onset Age: 30 Kidney stones as young man Myocardial infarction Passed in 2006 with heart attack age 78 Brother Asthma Prostate cancer, Onset Age: 61 Treated Radiation and hormonal. Cancer younger brother, skin cancer Mother Cancer Skin cancer Brother Cancer skin cancer Denies family history of Ovarian cancer Diabetes Breast cancer Lung cancer Colorectal cancer Stroke Social History Smoking Status: Never smoker Tobacco Type: Cigarettes Second Hand Exposure: No; Do You Dip or Chew Tobacco: No; Hx Alcohol Use: No Hx Substance Use: No Preferred Language: Spanish Communication Ability: Effective Communication Ability Comment: [place] Hearing Ability: Hard of Hearing Lighting Director Required: No Beliefs That Will Affect Care: None marital status: Current Living Situation: Alone current occupational status: employed 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 How many Children do You have: 0 How many Children do You have Comment: 1 step child Feels Safe at Home: Yes Safety Concerns: Feels Safe At This Time Childhood Exposure to Second-Hand Smoke: No Seatbelt Use: always Sunscreen Use: Yes Assistive Devices: CPAP, Glasses and Oxygen - Continuous Review of Systems Review of Systems: All systems reviewed & are unremarkable except as noted in HPI & below Physical Exam Constitutional: WD/WN, vitals as above + obese Neck: + thick neck Respiratory: + not able to speak in complete sentence (Conversational dyspnea noted) Auscultation: + diminished lung sounds and + rales Cardiovascular: Rate/Rhythm: regular rhythm and + tachycardic Heart Sounds: + murmur (II/ systolic murmur) Vessels: + JVD Extremities: + edema (1-2+ indurated edema) Gastrointestinal (Abdomen): Inspection/Auscultation: + abdomen distended Percussion/Palpation: + abdomen firm Neurologic: PERRL, EOMI, accommodation nl, no face palsy, no dysarthria Results & Data Vital Signs (Past 12 Hours) Vital Signs Temp Pulse Pulse Resp BP BP Pulse Ox 04/20/25 07:10 36.9 C 96 H 20 119/68 99 04/20/25 07:00 04/20/25 03:46 36.3 C L 98 H 18 114/69 94 04/20/25 01:51 97 H 04/20/25 01:24 04/20/25 00:42 36.6 C 100 H 22 142/76 H 94 04/20/25 00:00 96 H 24 133/84 97 04/19/25 23:30 17 122/80 100 04/19/25 23:00 137/85 100 04/19/25 22:30 92 H 20 124/69 99 04/19/25 22:00 84 20 133/93 100 04/19/25 21:42 89 17 124/80 98 O2 Del Method O2 Flow Rate 04/20/25 07:10 Nasal Cannula 4 04/20/25 07:00 Nasal Cannula 04/20/25 03:46 CPAP 04/20/25 01:51 04/20/25 01:24 Nasal Cannula 2 04/20/25 00:42 Nasal Cannula 2 04/20/25 00:00 Nasal Cannula 2 04/19/25 23:30 Nasal Cannula 2 04/19/25 23:00 Nasal Cannula 2 04/19/25 22:30 Nasal Cannula 2 04/19/25 22:00 Nasal Cannula 2 04/19/25 21:42 Nasal Cannula 2 Laboratory Results Cardiac Enzymes 04/19/25 04/20/25 Range/Units 18:57 07:25 AST 18 15 (13-39) U/L Troponin I High Sens 17.5 (0-20) pg/ml B-Natriuretic Peptide 1339 H (0-100) pg/ml Coagulation 04/19/25 04/19/25 Range/Units 18:57 19:05 PT 11.4 (9.0-12.0) Seconds B-Natriuretic Peptide 1339 H (0-100) pg/ml CBC 04/19/25 04/20/25 Range/Units 18:57 07:25 WBC 6.40 5.61 (4.8-10.8) K/ul RBC 3.54 L 3.48 L (4.70-6.10) M/uL Hgb 9.1 L 8.6 L (14.0-18.0) g/dL Hct 31.0 L 30.8 L (42.0-52.0) % Plt Count 225 216 (130-400) K/uL Neut # (Auto) 4.86 3.89 (1.40-6.50) K/uL Lymph # (Auto) 0.50 L 0.66 L (1.20-3.40) K/uL Arthur # (Auto) 0.75 H 0.81 H (0.11-0.59) K/uL Eos # (Auto) 0.24 0.22 (0.00-0.50) K/uL Baso # (Auto) 0.02 0.01 (0.00-0.20) K/uL Comprehensive Metabolic Panel 04/19/25 04/20/25 04/20/25 Range/Units 18:57 00:45 07:25 Sodium 140 141 (136-145) mmol/L Potassium 5.5 H 4.9 4.6 (3.5-5.1) mmol/L Chloride 104 105 (98-107) mmol/L Carbon Dioxide 30 31 (21-32) mmol/L BUN 34 H 32 H (6-23) mg/dl Creatinine 1.91 H 1.93 H (0.6-1.4) mg/dl Glucose 106 H 114 H (70-99(Fasting)) mg/dl Calcium 8.8 8.7 (8.6-10.3) mg/dl Direct Bilirubin 0.2 (0-0.2) mg/dl AST 18 15 (13-39) U/L ALT 8 8 (7-52) U/L Alkaline Phosphatase 95 90 (34-104) U/L Total Protein 7.1 6.9 (6.0-8.3) gm/dl Albumin 3.7 3.7 (3.4-5.0) gm/dl Intake and Output 04/19/25 04/20/25 04/20/25 22:59 06:59 14:59 Intake Total 60 / 360 300 / 360 171.667 / 171.667 Output Total 850 / 850 Balance 60 / -490 -550 / -490 171.667 / 171.667 Intake: IV 60 / 310 250 / 310 171.667 / 171.667 Acetaminophen 1,000 mg In 100 100 / 100 ml @ 400 mls/hr IV NOW STA Rx#: [id number] Albumin 25% 12.5 gm In 50 ml @ 50 / 50 50 mls/hr IV ONE ONE Rx#: [id number] Calcium Gluconate 1,000 mg In 60 / 60 60 ml @ 240 mls/hr IV NOW STA Rx#:[id number] Doxycycline Hyclate 100 mg In 100 / 100 100 ml @ 50 mls/hr IV NOW STA Rx#:[id number] Heparin 45237 Unit/500 ml D5w 171.667 / 171.667 25,000 units In 500 ml @ 1,000 UNITS/HR 20 mls/hr IV .Q24H [facility] Rx#:[id number] Oral 50 / 50 Output: Urine Amount (Catheter) 850 / 850 Lara/Indwelling 850 / 850 Other: Weight 117.2 kg 114.9 kg Weight Measurement Method [facility] in [facility] Diagnostic Findings Telemetry reviewed: Atrial flutter with rates ranging 90-100 bmp EKG reviewed: Probable atrial flutter with 2:1 AV block Impressions Chest X-Ray 04/19/25 18:41 Clinical History: Chest pain Technique: A frontal view of the chest was obtained Comparison is made to the prior examination dated 12/03/2024 Findings: There is right lower lobe opacity that could be due to pneumonia. There is also suspected pulmonary vascular congestion. The heart is mildly enlarged. There is a prosthetic cardiac valve. Sternal wires are present. No definite pneumothorax is seen. There is a small to moderate sized right pleural effusion. No fracture is noted. No foreign body is seen Impression: 1. Cardiomegaly and pulmonary vascular congestion 2. Possible right lower lobe pneumonia 3. Right pleural effusion ACT 112: Positive. There are findings on this exam that require communication between the performing entity and the patient following Patient Test Result Information Act ([place] ACT 112) guidelines. Electronically signed by Ayo Yee 04-19-2025 7:[address] 04/19/25 22:46 EXAM: CT chest diagnostic wo con CLINICAL HISTORY: pleural effusion, pnx TECHNIQUE: Contiguous axial CT images of the chest were acquired without administration of intravenous contrast. Coronal and sagittal reconstructions were obtained. One of the following dose reduction techniques were utilized for this exam: Automated exposure control, adjustment of the mA and/or kV according to patient size, use of iterative reconstruction. COMPARISON: Correlation with the 04/19/2025 18:30:00 CHEMICAL PROCESS ANALYST chest X-ray. FINDINGS: Lungs: No evidence of consolidation focal lesions. No pulmonary nodules or masses are identified. No evidence of interstitial lung disease or emphysema. Moderate right pleural effusion with associated subsegmental compressive atelectasis of the right lower lobe. Trace left pleural effusion. Bibasilar streaky atelectasis and scarring in the right upper lobe. Mediastinum: The mediastinum is normal in size and contour. Multiple small mediastinal lymphadenopathies. Multiple left axillary lymphadenopathies, Ultarsound is needed. There is mild cardiomegaly with mitral and aortic prosthetic valves. Hilar Structures: The hilar structures appear normal without enlargement or abnormality. Atheromatous calcifications of the aorta and coronary arteries. Trachea and Main Bronchi: The trachea and main bronchi are patent without evidence of obstruction or abnormality. Chest Wall: The chest wall is unremarkable with no evidence of soft tissue or bony abnormalities. Median sternotomy wires are seen. Upper Abdomen: Izgp-yw-vnplaxdu ascites. Liver cirrhosis. Bones: No evidence of fracture or lytic/sclerotic lesions. Moderate thoracic spondylosis. IMPRESSION: Moderate right pleural effusion with associated subsegmental compressive atelectasis of the right lower lobe. Trace left pleural effusion. Bibasilar streaky atelectasis and scarring in the right upper lobe. Mild cardiomegaly. Multiple small mediastinal lymphadenopathies. Multiple left axillary lymphadenopathies, Ultrasound is needed. Moderate thoracic spondylosis. Ixju-on-mcaayfih ascites. Liver cirrhosis. Electronically signed by Cody Rowell 04-20-2025 07:49 AM Medications Administered Current Inpatient Medications Acetaminophen (Acetaminophen 500 Mg Tab) 500 mg PO Q6H PRN PRN Reason: fever/pain Stop: 05/19/25 22:54 Allopurinol (Allopurinol 100 Mg Tab) 100 mg PO DAILY PIPER Stop: 05/20/25 08:59 Last Admin: 04/20/25 08:16 Dose: 100 mg Diclofenac Sodium (Diclofenac Sod 1% Gel 100 Gm Tube) 2 gm EXT Q6H PRN; Protocol PRN Reason: joint pain Stop: 05/20/25 03:21 Finasteride (Finasteride 5 Mg Tab) 5 mg PO QAM PIPER Stop: 05/21/25 08:59 Furosemide (Furosemide 40 Mg/4 Ml Vial) 60 mg IV BID PIPER Stop: 04/20/25 21:01 Last Admin: 04/20/25 08:19 Dose: 60 mg Hydromorphone HCl (Hydromorphone Inj 0.5 Mg/0.5 Ml Syr) 0.5 mg IV Q6H PRN PRN Reason: Pain Stop: 05/03/25 22:54 Heparin Sodium/Dextrose (Heparin 83396 Unit/500 Ml D5w) 25,000 units in 500 mls @ 20 mls/hr IV .Q24H PIPER; Protocol Stop: 05/19/25 23:14 Last Titration: 04/20/25 09:31 Dose: 1,000 units/hr, 20 mls/hr Promethazine HCl (Phenergan) 6.25 mg in 50.25 mls @ 201 mls/hr IV Q6H PRN PRN Reason: Nausea And Vomiting Stop: 05/19/25 22:54 Lactic Acid (Ammonium Lactate 12% Lotion 225 Gm Btl) 1 gm EXT BID PIPER Stop: 05/20/25 08:59 Last Admin: 04/20/25 08:17 Dose: 1 gm Lactulose (Lactulose Syrup 20 Gm/30 Ml Udc) 10 gm PO DAILY PIPER Stop: 05/21/25 08:59 Metoprolol Succinate (Metoprolol Succ 50mg Ext Rel Tab) 100 mg PO BID PIPER Stop: 05/20/25 08:59 Last Admin: 04/20/25 08:16 Dose: 100 mg Oxycodone HCl (Oxycodone Hcl Ir 5 Mg Tab (Immediate Release)) 5 - 10 mg PO QID PRN PRN Reason: Pain Stop: 05/03/25 22:54 Last Admin: 04/20/25 00:53 Dose: 10 mg Tamsulosin HCl (Tamsulosin Hcl 0.4 Mg Cap) 0.4 mg PO HS [facility] Stop: 05/20/25 20:59 PG Care Time/CCT Total # of Minutes Spent Total Time Spent with Patient: Total time spent is greater than 50% in coordination of care (as documented) at patient's floor/unit and/or counseling patient: 60 minutes Coding Level of Care Code 19177 INT INP/OBS CARE 3/75MIN Diagnoses Acute on chronic diastolic heart failure with preserved ejection fraction I50.33 Acute on chronic respiratory failure with hypoxia and hypercapnia J96.21; J96.22 Chronic atrial flutter I48.92 S/P MVR (mitral valve replacement) Z95.2 S/P AVR (aortic valve replacement) Z95.2 Ascites R18.8
--- NOTE | 2025-04-20 11:19 | Hospitalist Progress Note ---
Date of Service April 20, 2025 Assessment & Plan (1) Shortness of breath: Plan: 65M with PMH HFpEF, R sided CHF, severe aortic stenosis s/p AVR, cirrhosis, chronic hypoxic resp failure on 2L rest, 4L exertion/qHS, CKD3 BPH, who presents with CHF #Acute on chronic HFpEF #R sided CHF -Secondary to non compliance with diuretic regimen -He was not taking diuretics as he didn't want to keep going to the bathroom to urinate -BNP elevated. CXR and CT chest showing moderate R pleural effusion Plan -Continue IV lasix 60 BID -Monitor renal function, IOs, daily weight -Continue echavarria for accurate IO measurement -Appreciate cardio input -GDMT as tolerated #Moderate R pleural effusion -Suspect secondary to CHF/cirrhosis -Low suspicion for exudative/parapneumonic effusion -Chronic hypoxic resp failure on 2L rest, 4L exertion. At baseline -Will need repeat imaging once he is on a stable diuretic regimen to ensure it is improving #pAfib -Eliquis held for possible paracentesis -Currently on heparin drip for stroke prophylaxis -Continue metoprolol for rate control #Lymphadenopathy -Incidentally noted multiple axillary and mediastinal lymphadenopathies -Can obtain US of these as outpatient #Cirrhosis -Not compliant with diuretics as above -Gets monthly paracentesis with last para 04/14 -May need another para but last dose of eliquis was 04/19 -Can plan for para on 04/22 if still here and eliquis has been held for 3 days -Of note, he is not on a bowel regimen -No asterixis on exam or confusion -Will start lactulose while hospitalized. He should have 2-3 Loose bowel movements per day #BPH -Follow with urology as OP. reviewed note from 01/26/25 -Will start flomax and finasteride to help decrease urinary frequency while on diuretics on discharge -Continue echavarria for now -Voiding trial prior to discharge. #Anemia -Chronic normocytic anemia -At baseline -No bleeding -Check Fe panel, B12, folate #CKD3 -At baseline -Avoid nephrotoxic agents if possible -Watch closely while on IV diuretics I spent a total of 56 minutes coordinating, documenting, and providing care for this patient excluding time spent in the performance of separately billed services. This included personally reviewing all current laboratories and imaging studies, medical reconciliation, outpatient chart review and discussion with specialists Admission and Anticipated Discharge Date Admission Date: April 19, 2025 Subjective Feeling better today. less SOB. less leg swelling. some abd distention but patient believes that is his baseline. Physical Exam Physical Exam: Vitals and labs reviewed General: Obese in NAD HEENT: EOMI, PERRLA Neck: Supple Cardiac: RRR systolic murmur Lungs: bibasilar rales otherwise clear. no distress Abd: Abd distended. positive fluid wave. non tender. : Echavarria MSK: Full ROM. No obvious deformities Ext: 2+ b/l LE Edema Skin: Warm, Dry Neuro: AOx3 No focal deficits. Psych: Normal Mood Results & Data Results & Data Vital Signs (Past 12 Hours) Vital Signs Temp Pulse Pulse Resp BP BP Pulse Ox 04/20/25 10:45 36.8 C 101 H 20 122/69 98 04/20/25 07:10 36.9 C 96 H 20 119/68 99 04/20/25 07:00 04/20/25 03:46 36.3 C L 98 H 18 114/69 94 04/20/25 01:51 97 H 04/20/25 01:24 04/20/25 00:42 36.6 C 100 H 22 142/76 H 94 04/20/25 00:00 96 H 24 133/84 97 04/19/25 23:30 17 122/80 100 O2 Del Method O2 Flow Rate 04/20/25 10:45 Nasal Cannula 4 04/20/25 07:10 Nasal Cannula 4 04/20/25 07:00 Nasal Cannula 04/20/25 03:46 CPAP 04/20/25 01:51 04/20/25 01:24 Nasal Cannula 2 04/20/25 00:42 Nasal Cannula 2 04/20/25 00:00 Nasal Cannula 2 04/19/25 23:30 Nasal Cannula 2 Laboratory Results Abnormal lab results 04/19/25 04/20/25 Range/Units 18:57 07:25 RBC 3.54 L 3.48 L (4.70-6.10) M/uL Hgb 9.1 L 8.6 L (14.0-18.0) g/dL Hct 31.0 L 30.8 L (42.0-52.0) % MCH 24.7 L (25.0-34.0) pg MCHC 29.4 L 27.9 L (32.0-36.0) g/dL RDW Std Deviation 54.9 H 55.7 H (36.4-46.3) fL RDW Coeff of Arely 17.2 H 17.5 H (11.5-14.5) % Lymph # (Auto) 0.50 L 0.66 L (1.20-3.40) K/uL [place] # (Auto) 0.75 H 0.81 H (0.11-0.59) K/uL Potassium 5.5 H (3.5-5.1) mmol/L BUN 34 H 32 H (6-23) mg/dl Creatinine 1.91 H 1.93 H (0.6-1.4) mg/dl Glucose 106 H 114 H (70-99(Fasting)) mg/dl Magnesium 2.6 H (1.7-2.4) mg/dl B-Natriuretic Peptide 1339 H (0-100) pg/ml TSH 5.763 H (0.300-4.500) uIu/ml
--- NOTE | 2025-04-20 15:58 | XCELERA ---
[id number]
[2025-04-20] MEDS: TAMSULOSIN HCL 0.4 MG CAP PO SCH (20:17)
[2025-04-21 06:58] LABS: Hematocrit (blood only) 30.6 % (42.0-52.0); Hemoglobin 9.0 g/dL (14.0-18.0); Mean Corpuscular Hemoglobin 25.6 pg (25.0-34.0); Mean Corpuscular Volume 87.2 fL (80.0-100.0); Platelet Count 224 K/uL (130-400); RDW Standard Deviation 55.4 fL (36.4-46.3); Red Blood Count 3.51 M/uL (4.70-6.10); White Blood Count 6.37 K/ul (4.8-10.8)
[2025-04-21 07:19] LABS: ANTI-Xa, UFH(UnfractionatedHep 0.12 IU/ml (0.3-0.7)
[2025-04-21 07:20] LABS: Anion Gap 9.0 (3-11); Blood Urea Nitrogen 33.0 mg/dl (6-23); Calcium 8.8 mg/dl (8.6-10.3); Carbon Dioxide 32.0 mmol/L (21-32); Chloride 100.0 mmol/L (98-107); Creatinine Clr Calc Pharmacy 42.2 ml/min; Glucose 98.0 mg/dl (70-99(Fasting)); Potassium 4.1 mmol/L (3.5-5.1); Sodium 141.0 mmol/L (136-145)
[2025-04-21] MEDS: HEPARIN SOD (PORCINE) 1000 UNIT/ML IV ONE ×2 (08:05→20:25)
[2025-04-21] MEDS: LACTULOSE SYRUP 20 GM/30 ML UDC PO SCH (08:54)
[2025-04-21] MEDS: FINASTERIDE 5 MG TAB PO SCH (08:54)
[2025-04-21] MEDS: FUROSEMIDE 40 MG/4 ML VIAL IV SCH (10:25)
--- NOTE | 2025-04-21 11:21 | Cardiology Progress Note ---
Date of Service April 21, 2025 Assessment & Plan (1) Acute on chronic diastolic heart failure with preserved ejection fraction: (2) Acute on chronic respiratory failure with hypoxia and hypercapnia: (3) Chronic atrial flutter: (4) S/P MVR (mitral valve replacement): (5) S/P AVR (aortic valve replacement): (6) Ascites: Plan Patient is a 65 year old male with complex history of HFpEF, right heart failure, chronic respiratory failure, history of AVR and MVR with history of endocarditis, recurrent ascites, and non compliance with diuretics who presented to [facility] with worsening SOB/fluid retention consistent with acute on chronic HFpEF and acute right sided HF. Plan: Patient with good urine output over the last 24 hours - 3.5 L reported Mild rise in creatine from 1.9 to 2.1, however ongoing diuresis is needed to aid volume status Resume furosemide 40 mg IV BID today. Monitor renal function and electrolytes History of hyperkalemia - avoid spironolactone Likely benefit from repeat paracentesis. Eliquis on Hold. On IV heparin for stroke prophylaxis with chronic afib. Continue metoprolol succinate 100 mg BID Plans to proceed in the next 1-2 days History of AVR and MVR with endocarditis in November 2024 -no symptoms to suggest endocarditis at this time -Echo with normal LVEF and no significant valvualr disease noted. Case discussed with Dr. Bishop Randall spent a total of 40 minutes on the date of service in preparation, delivery, and documentation of the care provided to this patient, excluding any time spent in the performance of separately billed services. Chelsey Melgar PA-C Department of Cardiology, [facility] This chart was completed in part utilizing Speech Voice Recognition Software. Grammatical errors, random word insertions, pronoun errors, and incomplete sentences are an occasional consequence of this system due to software limitations, ambient noise, and hardware issues. Any formal questions or concerns about the content, text, or information contained within the body of this dictation should be directly addressed to the provider for clarification. Admission and Anticipated Discharge Date Admission Date: April 19, 2025 Supervising Physician Co-Signing Physician Notes Patient was seen and personally examined. Care and management discussed with advanced provider as above. Personally endorsed Plan to continue additional diuresis following renal function closely. Continue metoprolol succinate as ordered Eliquis on hold pending possible paracentesis Echocardiogram with preserved LV systolic function and no impairment in bioprosthetic aortic and mitral valves Moderate elevation in pulmonary pressures or greater present Subjective Patient resting in bed. Reports ongoing dyspnea/SOB, but slowly improving. No chest pain. He reports improving abdominal bloating and groin/scrotal swelling with diuresis since admission. Review of Systems Review of Systems: All systems reviewed & are unremarkable except as noted in HPI & below Physical Exam Constitutional: WD/WN, vitals as above + obese Neck: + thick neck Respiratory: able to speak in complete sentences (Conversational dyspnea noted) Auscultation: + diminished lung sounds and + rales Cardiovascular: Rate/Rhythm: regular rhythm and + tachycardic Heart Sounds: + murmur (II/ systolic murmur) Vessels: + JVD Extremities: + edema (1-2+ indurated edema) Gastrointestinal (Abdomen): Inspection/Auscultation: + abdomen distended Percussion/Palpation: + abdomen firm Neurologic: PERRL, EOMI, accommodation nl, no face palsy, no dysarthria Results & Data Vital Signs (Past 12 Hours) Vital Signs Temp Pulse Pulse Resp BP Pulse Ox O2 Del Method 04/21/25 10:43 37.4 C 99 H 21 117/70 99 Nasal Cannula 04/21/25 08:55 102 H 04/21/25 07:29 36.8 C 59 L 22 123/70 96 Nasal Cannula 04/21/25 03:03 37.5 C 102 H 19 105/61 97 CPAP 04/20/25 23:15 37.3 C 99 H 20 114/69 98 Nasal Cannula O2 Flow Rate 04/21/25 10:43 4 04/21/25 08:55 04/21/25 07:29 4 04/21/25 03:03 04/20/25 23:15 4 Laboratory Results CBC 04/21/25 Range/Units 06:14 WBC 6.37 (4.8-10.8) K/ul RBC 3.51 L (4.70-6.10) M/uL Hgb 9.0 L (14.0-18.0) g/dL Hct 30.6 L (42.0-52.0) % Plt Count 224 (130-400) K/uL Comprehensive Metabolic Panel 04/21/25 Range/Units 06:14 Sodium 141 (136-145) mmol/L Potassium 4.1 (3.5-5.1) mmol/L Chloride 100 (98-107) mmol/L Carbon Dioxide 32 (21-32) mmol/L BUN 33 H (6-23) mg/dl Creatinine 2.11 H (0.6-1.4) mg/dl Glucose 98 (70-99(Fasting)) mg/dl Calcium 8.8 (8.6-10.3) mg/dl Intake and Output 04/20/25 04/21/25 04/21/25 22:59 06:59 14:59 Intake Total 350 / 1698.667 627 / 1698.667 128.383 / 128.383 Output Total 1425 / 3500 825 / 3500 Balance -1075 / -1801.333 -198 / -1801.333 128.383 / 128.383 Intake: IV 327 / 498.667 128.383 / 128.383 Heparin 55207 Unit/500 ml D5w 327 / 498.667 128.383 / 128.383 25,000 units In 500 ml @ 1,000 UNITS/HR 20 mls/hr IV .Q24H [facility] Rx#:[id number] Oral 350 / 1200 300 / 1200 Output: Urine Amount (Catheter) 1425 / 3500 825 / 3500 Lara/Indwelling 1425 / 3500 825 / 3500 Other: Weight 114.1 kg Weight Measurement Method Built in [facility] Diagnostic Findings Telemetry reviewed: Atrial flutter with controlled rates mostly in the 80-100's. Echo reviewed from yesterday: Normal LVEF at 65-70% Moderate LVH LA is moderately dilated RV is moderately dilated RV systolic function is moderately reduced Bioprosthetic aortic valve, normal gradients Mild to moderate TR RV systolic pressure is elevated at 40-50 mmHg Medications Administered Current Inpatient Medications Acetaminophen (Acetaminophen 500 Mg Tab) 500 mg PO Q6H PRN PRN Reason: fever/pain Stop: 05/19/25 22:54 Allopurinol (Allopurinol 100 Mg Tab) 100 mg PO DAILY [facility] Stop: 05/20/25 08:59 Last Admin: 04/21/25 08:54 Dose: 100 mg Diclofenac Sodium (Diclofenac Sod 1% Gel 100 Gm Tube) 2 gm EXT Q6H PRN; Protocol PRN Reason: joint pain Stop: 05/20/25 03:21 Finasteride (Finasteride 5 Mg Tab) 5 mg PO QAM [facility] Stop: 05/21/25 08:59 Last Admin: 04/21/25 08:54 Dose: 5 mg Furosemide (Furosemide 40 Mg/4 Ml Vial) 40 mg IV [id number] [facility] Stop: 05/21/25 10:14 Last Admin: 04/21/25 10:25 Dose: 40 mg Hydromorphone HCl (Hydromorphone Inj 0.5 Mg/0.5 Ml Syr) 0.5 mg IV Q6H PRN PRN Reason: Pain Stop: 05/03/25 22:54 Heparin Sodium/Dextrose (Heparin 01055 Unit/500 Ml D5w) 25,000 units in 500 mls @ 23 mls/hr IV .[id number] [facility]; Protocol Stop: 05/19/25 23:14 Last Titration: 04/21/25 08:14 Dose: 1,150 units/hr, 23 mls/hr Promethazine HCl (Phenergan) 6.25 mg in 50.25 mls @ 201 mls/hr IV Q6H PRN PRN Reason: Nausea And Vomiting Stop: 05/19/25 22:54 Lactic Acid (Ammonium Lactate 12% Lotion 225 Gm Btl) 1 gm EXT BID [facility] Stop: 05/20/25 08:59 Last Admin: 04/21/25 08:54 Dose: 1 gm Lactulose (Lactulose Syrup 20 Gm/30 Ml Udc) 10 gm PO DAILY [facility] Stop: 05/21/25 08:59 Last Admin: 04/21/25 08:54 Dose: 10 gm Metoprolol Succinate (Metoprolol Succ 50mg Ext Rel Tab) 100 mg PO BID [facility] Stop: 05/20/25 08:59 Last Admin: 04/21/25 08:55 Dose: 100 mg Oxycodone HCl (Oxycodone Hcl Ir 5 Mg Tab (Immediate Release)) 5 - 10 mg PO QID PRN PRN Reason: Pain Stop: 05/03/25 22:54 Last Admin: 04/21/25 08:53 Dose: 10 mg Tamsulosin HCl (Tamsulosin Hcl 0.4 Mg Cap) 0.4 mg PO HS [facility] Stop: 05/20/25 20:59 Last Admin: 04/20/25 20:17 Dose: 0.4 mg PG Care Time/CCT Total # of Minutes Spent Total Time Spent with Patient: Total time spent is greater than 50% in coordination of care (as documented) at patient's floor/unit and/or counseling patient: 40 minutes Coding Level of Care Code 22149 SUB INP/OBS CARE 3/50MIN Diagnoses Acute on chronic diastolic heart failure with preserved ejection fraction I50.33 Acute on chronic respiratory failure with hypoxia and hypercapnia J96.21; J96.22 Chronic atrial flutter I48.92 S/P MVR (mitral valve replacement) Z95.2 S/P AVR (aortic valve replacement) Z95.2 Ascites R18.8
--- NOTE | 2025-04-21 13:26 | Hospitalist Progress Note ---
Date of Service April 21, 2025 Assessment & Plan (1) Shortness of breath: Plan: 65M with PMH HFpEF, R sided CHF, severe aortic stenosis s/p AVR, cirrhosis, chronic hypoxic resp failure on 2L rest, 4L exertion/qHS, CKD3 BPH, who presents with CHF #Acute on chronic HFpEF #R sided CHF -Secondary to non compliance with diuretic regimen -He was not taking diuretics as he didn't want to keep going to the bathroom to urinate -BNP elevated. CXR and CT chest showing moderate R pleural effusion Has been getting intravenous Lasix 60 mg twice daily and diuresing enough Appreciate cardiology input and recommendation Echo of the heart showed normal LV size, moderate concentric LVH, LVEF 65 to 70%, LA is moderately dilated, RV is moderately dilated, right ventricular systolic function is mildly reduced, there is bioprosthetic aortic valve mild to moderate tricuspid regurgitation and right ventricular systolic pressure is elevated to 40 to 50 mmHg Will monitor PRP Lasix doses have been decreased to 40 mg twice daily by the film editor supervisor -Cumulative fluid balance is negative 2162 mls Knee pain Has significant osteoarthritis mostly on the left knee Has been complaining of increasing pain since last evening Cannot take any NSAIDs and has been getting diclofenac locally Has been on oxycodone as well for pain control #Moderate R pleural effusion -Suspect secondary to CHF/cirrhosis -Low suspicion for exudative/parapneumonic effusion -Chronic hypoxic resp failure on 2L rest, 4L exertion. At baseline -Will need repeat imaging once he is on a stable diuretic regimen to ensure it is improving #pAfib -Eliquis held for possible paracentesis -Currently on heparin drip for stroke prophylaxis -Continue metoprolol for rate control Eliquis needs to be on hold for 3 days prior to paracentesis #Lymphadenopathy -Incidentally noted multiple axillary and mediastinal lymphadenopathies -Can obtain US of these as outpatient #Cirrhosis -Not compliant with diuretics as above -Gets monthly paracentesis with last para 04/14 -May need another para but last dose of eliquis was 04/19 -Can plan for para on 04/22 if still here and eliquis has been held for 3 days -Of note, he is not on a bowel regimen -No asterixis on exam or confusion -Will start lactulose while hospitalized. He should have 2-3 Loose bowel movements per day #BPH -Follow with urology as OP. reviewed note from 01/26/25 -Will start flomax and finasteride to help decrease urinary frequency while on diuretics on discharge -Continue echavarria for now -Voiding trial prior to discharge. #Anemia -Chronic normocytic anemia -At baseline -No bleeding -Check Fe panel, B12, folate #CKD3 -At baseline -Avoid nephrotoxic agents if possible -Watch closely while on IV diuretics I spent a total of 53 minutes coordinating, documenting, and providing care for this patient excluding time spent in the performance of separately billed services. This included personally reviewing all current laboratories and imaging studies, medical reconciliation, outpatient chart review and discussion with specialists Admission and Anticipated Discharge Date Admission Date: April 19, 2025 Subjective 04/21/2025 Patient was seen and examined in telemetry unit He has been complaining of bilateral knee pain since last night Denies any other significant symptoms except weakness Denies any nausea and/or vomiting Review of Systems Review of Systems: All systems reviewed and are unremarkable except as noted below Physical Exam Physical Exam: Lying in bed with distress due to generalized discomfort and bilateral knee pain Constitutional: well developed, well nourished, + ill appearing and + obese Eyes: PERRL, conjunctivae normal, anicteric sclerae ENMT: external ear and nose normal, oropharynx normal Neck: trachea midline, no thyromegaly Respiratory: no respiratory distress Auscultation: + diminished lung sounds and + crackles (Minimal bibasilar crackles ) Cardiovascular: Rate/Rhythm: regular rate and regular rhythm; not tachycardic Heart Sounds: normal S1 and normal S2; no murmur Extremities: + edema ( 1+ edema bilaterally with chronic skin changes) Musculoskeletal: Knee: + knee abnormal to inspection ( Swelling of the both knee joints) and + effusion ( minimal effusion clinically) Any movement of the knee joint is painful more on the left than the right Neurologic: normal touch/pain/proprioception and moves all extremities; no focal motor deficits General Very weak and lethargic Lymphatic: no cervical or axillary lymphadenopathy Results & Data Results & Data Vital Signs (Past 12 Hours) Vital Signs Temp Pulse Pulse Resp BP Pulse Ox O2 Del Method 04/21/25 10:43 37.4 C 99 H 21 117/70 99 Nasal Cannula 04/21/25 08:55 102 H 04/21/25 08:00 Nasal Cannula 04/21/25 07:29 36.8 C 59 L 22 123/70 96 Nasal Cannula 04/21/25 03:03 37.5 C 102 H 19 105/61 97 CPAP O2 Flow Rate 04/21/25 10:43 4 04/21/25 08:55 04/21/25 08:00 4 04/21/25 07:29 4 04/21/25 03:03 Laboratory Results Short CBC 04/21/25 Range/Units 06:14 WBC 6.37 (4.8-10.8) K/ul Hgb 9.0 L (14.0-18.0) g/dL Hct 30.6 L (42.0-52.0) % Plt Count 224 (130-400) K/uL BMP 04/21/25 06:14 Sodium 141 Potassium 4.1 Chloride 100 Carbon Dioxide 32 BUN 33 H Creatinine 2.11 H Glucose 98 Calcium 8.8 Medications Administered Current Inpatient Medications Acetaminophen (Acetaminophen 500 Mg Tab) 500 mg PO Q6H PRN PRN Reason: fever/pain Stop: 05/19/25 22:54 Allopurinol (Allopurinol 100 Mg Tab) 100 mg PO DAILY [facility] Stop: 05/20/25 08:59 Last Admin: 04/21/25 08:54 Dose: 100 mg Diclofenac Sodium (Diclofenac Sod 1% Gel 100 Gm Tube) 2 gm EXT Q6H PRN; Protocol PRN Reason: joint pain Stop: 05/20/25 03:21 Finasteride (Finasteride 5 Mg Tab) 5 mg PO QAM [facility] Stop: 05/21/25 08:59 Last Admin: 04/21/25 08:54 Dose: 5 mg Furosemide (Furosemide 40 Mg/4 Ml Vial) 40 mg IV [id number] [facility] Stop: 05/21/25 10:14 Last Admin: 04/21/25 10:25 Dose: 40 mg Hydromorphone HCl (Hydromorphone Inj 0.5 Mg/0.5 Ml Syr) 0.5 mg IV Q6H PRN PRN Reason: Pain Stop: 05/03/25 22:54 Heparin Sodium/Dextrose (Heparin 09745 Unit/500 Ml D5w) 25,000 units in 500 mls @ 23 mls/hr IV .[id number] [facility]; Protocol Stop: 05/19/25 23:14 Last Titration: 04/21/25 08:14 Dose: 1,150 units/hr, 23 mls/hr Promethazine HCl (Phenergan) 6.25 mg in 50.25 mls @ 201 mls/hr IV Q6H PRN PRN Reason: Nausea And Vomiting Stop: 05/19/25 22:54 Lactic Acid (Ammonium Lactate 12% Lotion 225 Gm Btl) 1 gm EXT BID [facility] Stop: 05/20/25 08:59 Last Admin: 04/21/25 08:54 Dose: 1 gm Lactulose (Lactulose Syrup 20 Gm/30 Ml Udc) 10 gm PO DAILY [facility] Stop: 05/21/25 08:59 Last Admin: 04/21/25 08:54 Dose: 10 gm Metoprolol Succinate (Metoprolol Succ 50mg Ext Rel Tab) 100 mg PO BID [facility] Stop: 05/20/25 08:59 Last Admin: 04/21/25 08:55 Dose: 100 mg Oxycodone HCl (Oxycodone Hcl Ir 5 Mg Tab (Immediate Release)) 5 - 10 mg PO QID PRN PRN Reason: Pain Stop: 05/03/25 22:54 Last Admin: 04/21/25 08:53 Dose: 10 mg Tamsulosin HCl (Tamsulosin Hcl 0.4 Mg Cap) 0.4 mg PO HS [facility] Stop: 05/20/25 20:59 Last Admin: 04/20/25 20:17 Dose: 0.4 mg
[2025-04-21] MEDS: SODIUM CHLORIDE 0.65% NA SOLN 45 ML (OCEAN) ONE (15:44)
[2025-04-21 16:01] LABS: ANTI-Xa, UFH(UnfractionatedHep 0.10 IU/ml (0.3-0.7)
--- NOTE | 2025-04-21 19:50 | Communication Note ---
Date of Service: April 21, 2025 Patient's right forearm noted to be puffy/black and blue. RN has concerns about IV site infusing heparin out of vein. Patient complaining of mild discomfort. AP RUE swelling, possible hematoma Hold IV heparin for now CT right forearm CT right forearm read as follows There is severe circumferential subcutaneous edema throughout the entire right forearm. No subcutaneous emphysema, abscess, or foreign body is identified. Consider cellulitis. AP RUE cellulitis Doxycycline
[2025-04-21 20:18] LABS: Hematocrit (blood only) 29.6 % (42.0-52.0); Hemoglobin 8.6 g/dL (14.0-18.0); Immature Granulocytes # (auto) 0.02 K/uL (0.01-0.20); Immature Granulocytes % (auto) 0.3 %; Mean Corpuscular Hemoglobin 25.1 pg (25.0-34.0); Mean Corpuscular Volume 86.5 fL (80.0-100.0); Platelet Count 204 K/uL (130-400); RDW Standard Deviation 54.4 fL (36.4-46.3); Red Blood Count 3.42 M/uL (4.70-6.10); White Blood Count 6.81 K/ul (4.8-10.8)
--- NOTE | 2025-04-21 23:44 | CT Scan Report ---
Exam(s): CT EXTREMITY RIGHT UPPER Without Contrast EXAM: CT Right Upper Extremity Without Intravenous Contrast CLINICAL HISTORY: Reason for exam: Swelling, heparin. TECHNIQUE: Axial computed tomography images of the right upper extremity without intravenous contrast. CTDI is 6.03 mGy and DLP is 187.1 mGy-cm. Automated exposure control was utilized for the study. A dose lowering technique was utilized adhering to the principles of ALARA. COMPARISON: No relevant prior studies available. FINDINGS: Bones/joints: [id number] degenerative changes of the 1st carpometacarpal joint. The radius and ulna are intact and normally aligned. Bone mineral density is normal. No acute fracture. Soft tissues: There is severe circumferential subcutaneous edema throughout the entire right forearm. No subcutaneous emphysema, abscess, or foreign body is identified. Vasculature: Moderate diffuse arterial calcification throughout the radial artery. IMPRESSION: There is severe circumferential subcutaneous edema throughout the entire right forearm. No subcutaneous emphysema, abscess, or foreign body is identified. Consider cellulitis. Electronically signed by: Florian Moe MD 04/21/25 23:43 PM
--- NOTE | 2025-04-22 06:11 | Electrocardiogram Report ---
Test Reason : Blood Pressure : */* mmHG Vent. Rate : 97 BPM Atrial Rate : 97 BPM P-R Int : 188 ms QRS Dur : 86 ms QT Int : 368 ms P-R-T Axes : * 248 -4 degrees QTcB Int : 467 ms Sinus rhythm with 1st degree A-V block Right superior axis deviation Possible Inferior infarct , age undetermined Abnormal ECG When compared with ECG of 29-Nov-2024 09:13, QRS axis Shifted left Confirmed by Rudy Tang ([id number]) on 04/22/2025 6:10:56 AM Referred By: Yuriy Dempsey Confirmed By: Rudy Tang
[2025-04-22 06:49] LABS: Hematocrit (blood only) 28.4 % (42.0-52.0); Hemoglobin 8.3 g/dL (14.0-18.0); Immature Granulocytes # (auto) 0.03 K/uL (0.01-0.20); Immature Granulocytes % (auto) 0.5 %; Mean Corpuscular Hemoglobin 25.3 pg (25.0-34.0); Mean Corpuscular Volume 86.6 fL (80.0-100.0); Platelet Count 188 K/uL (130-400); RDW Standard Deviation 55.4 fL (36.4-46.3); Red Blood Count 3.28 M/uL (4.70-6.10); White Blood Count 6.18 K/ul (4.8-10.8)
[2025-04-22 07:16] LABS: Anion Gap 8.0 (3-11); Blood Urea Nitrogen 32.0 mg/dl (6-23); Calcium 8.9 mg/dl (8.6-10.3); Carbon Dioxide 35.0 mmol/L (21-32); Chloride 99.0 mmol/L (98-107); Creatinine Clr Calc Pharmacy 49.0 ml/min; Glucose 98.0 mg/dl (70-99(Fasting)); Iron 21.0 mcg/dl (35-175); Magnesium 2.0 mg/dl (1.7-2.4); Potassium 3.7 mmol/L (3.5-5.1); Sodium 142.0 mmol/L (136-145)
[2025-04-22 07:34] LABS: Folate (Folic Acid),Ser orPlas 13.5 ng/ml (>5.38)
[2025-04-22 07:35] LABS: Vitamin B12 298.0 pg/ml (180-914)
[2025-04-22] MEDS: POLYETHYLENE (MIRALAX) 17 GM PACK PO PRN (08:46)
[2025-04-22] MEDS: FUROSEMIDE INJ 20 MG/2 ML VIAL IV ONE (08:49)
[2025-04-22] MEDS: DOCUSATE SODIUM/SENNA 50/8.6MG TAB PO SCH (08:49)
--- NOTE | 2025-04-22 08:56 | Cardiology Progress Note ---
Date of Service April 22, 2025 Assessment & Plan (1) Acute on chronic diastolic heart failure with preserved ejection fraction: (2) Acute on chronic respiratory failure with hypoxia and hypercapnia: (3) Chronic atrial flutter: (4) S/P MVR (mitral valve replacement): (5) S/P AVR (aortic valve replacement): (6) Ascites: Plan Patient is a 65 year old male with complex history of HFpEF, right heart failure, chronic respiratory failure, history of AVR and MVR with history of endocarditis, recurrent ascites, and non compliance with diuretics who presented to [facility] with worsening SOB/fluid retention consistent with acute on chronic HFpEF and acute right sided HF. Plan 04/22/2025: -patient continues to diurese well -1392ml fluid balance. -Maintain 1500ml fluid restriction at this time. 2G low sodium diet. -Strict I&O, daily weights. -Close monitoring of serum renal function and electrolytes. -Continue Furosemide 60mg IV BID -Per review of prior notes, history of hyperkalemia, avoid use of spironolactone. -Likely benefit from repeat paracentesis. -Eliquis on Hold. -On IV heparin for stroke prophylaxis with chronic afib. -Continue metoprolol succinate 100 mg BID History of AVR and MVR with endocarditis in November 2024 -no symptoms to suggest endocarditis at this time -Echo with normal LVEF and no significant valvular disease noted. Case has been discussed with Dr. Alas. Further recommendations regarding plan of care as per his assessment. I spent a total of 30 minutes on the date of service in preparation, delivery, documentation of the care provided to the patient excluding any time spent in the performance of separately billed services. SANG Alvarez [facility] Cardiology [facility] Admission and Anticipated Discharge Date Admission Date: April 19, 2025 Supervising Physician Co-Signing Physician Notes Patient was seen and personally examined. Care and management as outlined by advanced provider as above Lower extremity edema noted increased abdominal girth has improved slightly. Renal function improved despite increased diuretic Plan: Increase intravenous furosemide dosing to 60 mg twice daily Exam consistent with likely 10 kg volume overload Review of Systems Review of Systems: All systems reviewed & are unremarkable except as noted in HPI & below Physical Exam Constitutional: + obese; no acute distress Neck: normal visual inspection and trachea midline Respiratory: normal respiratory effort; no respiratory distress, no labored breathing and no cough Auscultation: + diminished lung sounds (bilateral bases ); no crackles, no rales, no rhonchi and no wheezes Cardiovascular: Rate/Rhythm: + tachycardic and + irregularly irregular Heart Sounds: normal S1, normal S2 and + murmur (+1/6 systolic mumur) Vessels: dorsalis pedis pulses present; no JVD Extremities: + edema (+2 BLE ) Skin: + erythema (bilateral lower extremities ) Psychiatric: A+Ox3, euthymic affect Results & Data Vital Signs (Past 12 Hours) Vital Signs Temp Pulse Pulse Pulse Resp BP Pulse Ox 04/22/25 07:48 36.8 C 99 H 99 H 21 108/68 91 04/22/25 03:29 36.7 C 99 H 20 134/74 93 04/21/25 23:00 37.4 C 100 H 20 115/64 97 04/21/25 22:30 101 H O2 Del Method O2 Flow Rate 04/22/25 07:48 Nasal Cannula 4 04/22/25 03:29 CPAP 04/21/25 23:00 CPAP 04/21/25 22:30 Laboratory Results CBC 04/21/25 04/22/25 Range/Units 20:05 06:24 WBC 6.81 6.18 (4.8-10.8) K/ul RBC 3.42 L 3.28 L (4.70-6.10) M/uL Hgb 8.6 L 8.3 L (14.0-18.0) g/dL Hct 29.6 L 28.4 L (42.0-52.0) % Plt Count 204 188 (130-400) K/uL Neut # (Auto) 5.09 4.50 (1.40-6.50) K/uL Lymph # (Auto) 0.53 L 0.54 L (1.20-3.40) K/uL [place] # (Auto) 1.00 H 0.91 H (0.11-0.59) K/uL Eos # (Auto) 0.16 0.19 (0.00-0.50) K/uL Baso # (Auto) 0.01 0.01 (0.00-0.20) K/uL Comprehensive Metabolic Panel 04/22/25 Range/Units 06:24 Sodium 142 (136-145) mmol/L Potassium 3.7 (3.5-5.1) mmol/L Chloride 99 (98-107) mmol/L Carbon Dioxide 35 H (21-32) mmol/L BUN 32 H (6-23) mg/dl Creatinine 1.80 H D (0.6-1.4) mg/dl Glucose 98 (70-99(Fasting)) mg/dl Calcium 8.9 (8.6-10.3) mg/dl Intake and Output 04/21/25 04/22/25 04/22/25 22:59 06:59 14:59 Intake Total 566.800 / 1485.183 50 / 1485.183 100 / 100 Output Total 1400 / 2850 300 / 2850 Balance -833.200 / -1364.817 -250 / -1364.817 100 / 100 Intake: IV 266.800 / 395.183 100 / 100 Doxycycline Hyclate 100 mg In 100 / 100 100 ml @ 50 mls/hr IV [facility] Rx#:[id number] Heparin 48174 Unit/500 ml D5w 266.800 / 395.183 25,000 units In 500 ml @ 1,150 UNITS/HR 23 mls/hr IV .[id number] [facility] Rx#:[id number] Oral 300 / 1090 50 / 1090 Output: Urine Amount (Catheter) 1400 / 2850 300 / 2850 Lara/Indwelling 1400 / 2850 300 / 2850 Other: Weight 112.1 kg Weight Measurement Method Built in [facility] PG Care Time/CCT Total # of Minutes Spent Total Time Spent with Patient: Total time spent is greater than 50% in coordination of care (as documented) at patient's floor/unit and/or counseling patient: Coding Level of Care Code 87271 SUB INP/OBS CARE 3/50MIN Diagnoses Acute on chronic diastolic heart failure with preserved ejection fraction I50.33 Acute on chronic respiratory failure with hypoxia and hypercapnia J96.21; J96.22 Chronic atrial flutter I48.92 S/P MVR (mitral valve replacement) Z95.2 S/P AVR (aortic valve replacement) Z95.2 Ascites R18.8 Time Spent (min) 30
[2025-04-22] MEDS: FUROSEMIDE 40 MG/4 ML VIAL IV SCH (13:28)
--- NOTE | 2025-04-22 14:30 | Ultrasound Report ---
ULTRASOUND-GUIDED PARACENTESIS CLINICAL HISTORY: Ascites PROCEDURE: Procedure and risks were explained. Informed consent was obtained. A final timeout was com pleted. The abdomen was prepped and draped in sterile fashion. 1% lidocaine was utilized for skin ane sthesia. Utilizing ultrasound guidance, a 5 Vietnamese safety centesis catheter was advanced into the left lower q uadrant pocket of ascites. Ultrasound images were obtained. 2.4 L of ascites fluid was removed and di scarded. The catheter was removed and Band-Aid applied. The patient tolerated the procedure well. Vit al signs will be monitored postprocedure. IMPRESSION: Ultrasound-guided paracentesis as above. Performed, dictated, and signed by Lon Joseph PA-C; to be co-signed by Dr. Taz Grant. Electronically signed by: Taz Grant M.D. 04/22/2025 2:50 PM
--- NOTE | 2025-04-22 15:22 | Hospitalist Progress Note ---
Date of Service April 22, 2025 Assessment & Plan (1) Shortness of breath: Plan: 65M with PMH HFpEF, R sided CHF, severe aortic stenosis s/p AVR, cirrhosis, chronic hypoxic resp failure on 2L rest, 4L exertion/qHS, CKD3 BPH, who presents with CHF #Acute on chronic HFpEF #R sided CHF -Secondary to non compliance with diuretic regimen -He was not taking diuretics as he didn't want to keep going to the bathroom to urinate -BNP elevated. CXR and CT chest showing moderate R pleural effusion Has been getting intravenous Lasix 60 mg twice daily and diuresing enough Appreciate cardiology input and recommendation Echo of the heart showed normal LV size, moderate concentric LVH, LVEF 65 to 70%, LA is moderately dilated, RV is moderately dilated, right ventricular systolic function is mildly reduced, there is bioprosthetic aortic valve mild to moderate tricuspid regurgitation and right ventricular systolic pressure is elevated to 40 to 50 mmHg Will monitor PRP Lasix doses have been decreased to 40 mg twice daily by the physical education specialist -Cumulative fluid balance is negative 2162 mls Clinically much better and not complaining of any shortness of breath at rest but is still requiring 4 L to maintain saturation Cumulative fluid balance is -4316 mL His furosemide doses have been increased to 60 mg twice daily #Cirrhosis with ongoing ascites and requiring frequent paracentesis -Not compliant with diuretics as above -Gets monthly paracentesis with last para 04/14 -May need another para but last dose of eliquis was 04/19 -Can plan for para on 04/22 if still here and eliquis has been held for 3 days -Of note, he is not on a bowel regimen -No asterixis on exam or confusion -Will start lactulose while hospitalized. He should have 2-3 Loose bowel movements per day He is status post 2.4 L paracentesis today and has been feeling okay following the procedure Right forearm swelling and redness Secondary to extravasation of heparin CT showed possible cellulitis but no abscess Has been getting doxycycline for that Knee pain Has significant osteoarthritis mostly on the left knee Has been complaining of increasing pain since last evening Cannot take any NSAIDs and has been getting diclofenac locally Has been on oxycodone as well for pain control Knee pain is better #Moderate R pleural effusion -Suspect secondary to CHF/cirrhosis -Low suspicion for exudative/parapneumonic effusion -Chronic hypoxic resp failure on 2L rest, 4L exertion. At baseline -Will need repeat imaging once he is on a stable diuretic regimen to ensure it is improving #pAfib -Eliquis held for possible paracentesis -Currently on heparin drip for stroke prophylaxis -Continue metoprolol for rate control Eliquis needs to be on hold for 3 days prior to paracentesis Status post paracentesis and plan to restart Eliquis from tomorrow morning #Lymphadenopathy -Incidentally noted multiple axillary and mediastinal lymphadenopathies -Can obtain US of these as outpatient #BPH -Follow with urology as OP. reviewed note from 01/26/25 -Will start flomax and finasteride to help decrease urinary frequency while on diuretics on discharge -Continue echavarria for now -Voiding trial prior to discharge. #Anemia -Chronic normocytic anemia -At baseline -No bleeding -Check Fe panel, B12, folate #CKD3 -At baseline -Avoid nephrotoxic agents if possible -Watch closely while on IV diuretics I spent a total of 37 minutes coordinating, documenting, and providing care for this patient excluding time spent in the performance of separately billed services. This included personally reviewing all current laboratories and imaging studies, medical reconciliation, outpatient chart review and discussion with specialists Admission and Anticipated Discharge Date Admission Date: April 19, 2025 Subjective 04/21/2025 Patient was seen and examined in telemetry unit He has been complaining of bilateral knee pain since last night Denies any other significant symptoms except weakness Denies any nausea and/or vomiting 04/22/2025 The patient was seen and examined in telemetry unit He has had some extravasation of heparin in right forearm last night has been feeling much better Denies any significant symptoms and he will have paracentesis today Review of Systems Review of Systems: All systems reviewed and are unremarkable except as noted below Physical Exam Physical Exam: Lying in bed with distress due to generalized discomfort and bilateral knee pain Constitutional: well developed, well nourished, + ill appearing and + obese Eyes: PERRL, conjunctivae normal, anicteric sclerae ENMT: external ear and nose normal, oropharynx normal Neck: trachea midline, no thyromegaly Respiratory: no respiratory distress Auscultation: + diminished lung sounds and + crackles (Minimal bibasilar crackles ) Cardiovascular: Rate/Rhythm: regular rate and regular rhythm; not tachycardic Heart Sounds: normal S1 and normal S2; no murmur Extremities: + edema ( 1+ edema bilaterally with chronic skin changes) Musculoskeletal: Knee: + knee abnormal to inspection ( Swelling of the both knee joints), + effusion ( minimal effusion clinically) and + skin erythema ( erythema and swelling involving the right forearm and adjoining area elbo) Neurologic: normal touch/pain/proprioception and moves all extremities; no focal motor deficits Lymphatic: no cervical or axillary lymphadenopathy Results & Data Results & Data Vital Signs (Past 12 Hours) Vital Signs Temp Pulse Pulse Resp BP Pulse Ox O2 Del Method 04/22/25 15:07 36.5 C 96 H 20 136/77 94 Nasal Cannula 04/22/25 14:40 36.8 C 101 H 20 131/77 96 Nasal Cannula 04/22/25 11:31 36.9 C 99 H 21 108/63 96 Nasal Cannula 04/22/25 07:48 36.8 C 99 H 99 H 21 108/68 91 Nasal Cannula 04/22/25 03:29 36.7 C 99 H 20 134/74 93 CPAP O2 Flow Rate 04/22/25 15:07 4 04/22/25 14:40 4 04/22/25 11:31 4 04/22/25 07:48 4 04/22/25 03:29 Laboratory Results Short CBC 04/21/25 04/22/25 Range/Units 20:05 06:24 WBC 6.81 6.18 (4.8-10.8) K/ul Hgb 8.6 L 8.3 L (14.0-18.0) g/dL Hct 29.6 L 28.4 L (42.0-52.0) % Plt Count 204 188 (130-400) K/uL BMP 04/22/25 06:24 Sodium 142 Potassium 3.7 Chloride 99 Carbon Dioxide 35 H BUN 32 H Creatinine 1.80 H D Glucose 98 Calcium 8.9 Medications Administered Current Inpatient Medications Acetaminophen (Acetaminophen 500 Mg Tab) 500 mg PO Q6H PRN PRN Reason: fever/pain Stop: 05/19/25 22:54 Allopurinol (Allopurinol 100 Mg Tab) 100 mg PO DAILY [facility] Stop: 05/20/25 08:59 Last Admin: 04/22/25 08:46 Dose: 100 mg Diclofenac Sodium (Diclofenac Sod 1% Gel 100 Gm Tube) 2 gm EXT Q6H PRN; Protocol PRN Reason: joint pain Stop: 05/20/25 03:21 Doxycycline Hyclate (Doxycycline Hyclate 100 Mg Cap) 100 mg PO BID [facility] Stop: 04/29/25 20:59 Finasteride (Finasteride 5 Mg Tab) 5 mg PO QAM [facility] Stop: 05/21/25 08:59 Last Admin: 04/22/25 08:46 Dose: 5 mg Furosemide (Furosemide 40 Mg/4 Ml Vial) 60 mg IV [id number] [facility] Stop: 05/22/25 13:59 Last Admin: 04/22/25 13:28 Dose: 60 mg Hydromorphone HCl (Hydromorphone Inj 0.5 Mg/0.5 Ml Syr) 0.5 mg IV Q6H PRN PRN Reason: Pain Stop: 05/03/25 22:54 Heparin Sodium/Dextrose (Heparin 42818 Unit/500 Ml D5w) 25,000 units in 500 mls @ 0 mls/hr IV .Q0M [facility]; Protocol Stop: 05/19/25 23:14 Last Titration: 04/21/25 19:50 Dose: 0 units/hr, 0 mls/hr Promethazine HCl (Phenergan) 6.25 mg in 50.25 mls @ 201 mls/hr IV Q6H PRN PRN Reason: Nausea And Vomiting Stop: 05/19/25 22:54 Lactic Acid (Ammonium Lactate 12% Lotion 225 Gm Btl) 1 gm EXT BID [facility] Stop: 05/20/25 08:59 Last Admin: 04/22/25 07:30 Dose: 1 gm Lactulose (Lactulose Syrup 20 Gm/30 Ml Udc) 10 gm PO DAILY [facility] Stop: 05/21/25 08:59 Last Admin: 04/22/25 08:45 Dose: 10 gm Metoprolol Succinate (Metoprolol Succ 50mg Ext Rel Tab) 100 mg PO BID [facility] Stop: 05/20/25 08:59 Last Admin: 04/22/25 08:46 Dose: 100 mg Oxycodone HCl (Oxycodone Hcl Ir 5 Mg Tab (Immediate Release)) 5 - 10 mg PO QID PRN PRN Reason: Pain Stop: 05/03/25 22:54 Last Admin: 04/22/25 07:29 Dose: 10 mg Polyethylene Glycol (Polyethylene (Miralax) 17 Gm Pack) 17 gm PO DAILY PRN PRN Reason: Constipation Stop: 05/21/25 21:02 Last Admin: 04/22/25 08:46 Dose: 17 gm Senna/Docusate Sodium (Docusate Sodium/Senna 50/8.6mg Tab) [facility] Stop: 05/22/25 08:59 Last Admin: 04/22/25 08:49 Dose: 1 tab Tamsulosin HCl (Tamsulosin Hcl 0.4 Mg Cap) 0.4 mg PO HS [facility] Stop: 05/20/25 20:59 Last Admin: 04/21/25 20:45 Dose: 0.4 mg
[2025-04-22] MEDS: ASPIRIN 81 MG ECTAB PO SCH (16:34)
[2025-04-22] MEDS: POLYETHYLENE (MIRALAX) 17 GM PACK PO ONE (16:34)
[2025-04-22] MEDS: APIXABAN 5 MG TABLET PO ONE (16:35)
[2025-04-22] MEDS: DOXYCYCLINE HYCLATE 100 MG CAP PO SCH (20:27)
[2025-04-23 06:39] LABS: Hematocrit (blood only) 29.4 % (42.0-52.0); Hemoglobin 8.5 g/dL (14.0-18.0); Immature Granulocytes # (auto) 0.03 K/uL (0.01-0.20); Immature Granulocytes % (auto) 0.5 %; Mean Corpuscular Hemoglobin 24.7 pg (25.0-34.0); Mean Corpuscular Volume 85.5 fL (80.0-100.0); Platelet Count 190 K/uL (130-400); RDW Standard Deviation 54.4 fL (36.4-46.3); Red Blood Count 3.44 M/uL (4.70-6.10); White Blood Count 6.21 K/ul (4.8-10.8)
[2025-04-23 07:01] LABS: Anion Gap 9.0 (3-11); Blood Urea Nitrogen 32.0 mg/dl (6-23); Calcium 8.7 mg/dl (8.6-10.3); Carbon Dioxide 35.0 mmol/L (21-32); Chloride 97.0 mmol/L (98-107); Creatinine Clr Calc Pharmacy 58.6 ml/min; Glucose 97.0 mg/dl (70-99(Fasting)); Magnesium 1.7 mg/dl (1.7-2.4); Potassium 3.2 mmol/L (3.5-5.1); Sodium 141.0 mmol/L (136-145)
[2025-04-23] MEDS: POTASSIUM CHLORIDE CRTAB 20 MEQ TABCR PO STA (09:04)
--- NOTE | 2025-04-23 09:10 | Cardiology Progress Note ---
Date of Service April 23, 2025 Assessment & Plan (1) Acute on chronic diastolic heart failure with preserved ejection fraction: (2) Acute on chronic respiratory failure with hypoxia and hypercapnia: (3) Chronic atrial flutter: (4) S/P MVR (mitral valve replacement): (5) S/P AVR (aortic valve replacement): (6) Ascites: Plan Patient is a 65 year old male with complex history of HFpEF, right heart failure, chronic respiratory failure, history of AVR and MVR with history of endocarditis, recurrent ascites, and non compliance with diuretics who presented to [facility] with worsening SOB/fluid retention consistent with acute on chronic HFpEF and acute right sided HF. Plan 04/22/2025: -patient continues to diurese well -2645 ml fluid deficit -Maintain 1500ml fluid restriction at this time. 2G low sodium diet. -Strict I&O, daily weights. -Close monitoring of serum renal function and electrolytes. Serum K 3.2--received PO supplementation -Goal serum K> 4.0 and goal serum mag > 2.0 -Continue Furosemide 60mg IV BID -Per review of prior notes, history of hyperkalemia, avoid use of spironolactone. -Likely benefit from repeat paracentesis. -Eliquis on Hold. -On IV heparin for stroke prophylaxis with chronic afib. -Continue metoprolol succinate 100 mg BID History of AVR and MVR with endocarditis in November 2024 -no symptoms to suggest endocarditis at this time -Echo with normal LVEF and no significant valvular disease noted. Case has been discussed with Dr. Alas. Further recommendations regarding plan of care as per his assessment. I spent a total of 30 minutes on the date of service in preparation, delivery, documentation of the care provided to the patient excluding any time spent in the performance of separately billed services. SANG Alvarez [facility] Admission and Anticipated Discharge Date Admission Date: April 19, 2025 Supervising Physician Co-Signing Physician Notes Patient was seen and personally examined. Care and management as outlined by advanced provider as above. Personally endorsed Lower extremity edema ,increased abdominal girth has again improved. Renal function improved despite increased diuretic Still with significant volume overload Continue IV furosemide Subjective 04/23/2025: Patient seen and examined in follow up today. resting comfortably in bed visiting with family. Denies any acute concerns and feels his breathing is improved. Remains on supplemental O2 4LPM Labs, vitals, diagnostics, telemetry and documentation reviewed. Telemetry reviewed showing Atrial flutter 90-110bpm. -2645ml fluid balance - 8kg weights deficit Review of Systems Review of Systems: All systems reviewed & are unremarkable except as noted in HPI & below Physical Exam Constitutional: + obese; no acute distress Neck: normal visual inspection and trachea midline Respiratory: normal respiratory effort; no respiratory distress, no labored breathing and no cough Auscultation: + diminished lung sounds (bilateral bases ); no crackles, no rales, no rhonchi and no wheezes Cardiovascular: Rate/Rhythm: + tachycardic and + irregularly irregular Heart Sounds: normal S1, normal S2 and + murmur (+1/6 systolic mumur) Vessels: dorsalis pedis pulses present; no JVD Extremities: + edema (+2 BLE ) Skin: + erythema (bilateral lower extremities ) Psychiatric: A+Ox3, euthymic affect Results & Data Vital Signs (Past 12 Hours) Vital Signs Temp Pulse Pulse Pulse Resp BP Pulse Ox 04/23/25 07:26 37.2 C 99 H 20 133/75 96 04/23/25 07:00 101 H 04/23/25 04:04 36.5 C 98 H 18 149/75 H 93 04/22/25 22:37 04/22/25 22:18 37.1 C 100 H 18 121/70 99 04/22/25 22:01 101 H O2 Del Method O2 Flow Rate 04/23/25 07:26 Nasal Cannula 3 04/23/25 07:00 04/23/25 04:04 CPAP 04/22/25 22:37 Nasal Cannula 4 04/22/25 22:18 Nasal Cannula 4 04/22/25 22:01 Laboratory Results CBC 04/23/25 Range/Units 06:07 WBC 6.21 (4.8-10.8) K/ul RBC 3.44 L (4.70-6.10) M/uL Hgb 8.5 L (14.0-18.0) g/dL Hct 29.4 L (42.0-52.0) % Plt Count 190 (130-400) K/uL Neut # (Auto) 4.60 (1.40-6.50) K/uL Lymph # (Auto) 0.44 L (1.20-3.40) K/uL [place] # (Auto) 0.88 H (0.11-0.59) K/uL Eos # (Auto) 0.25 (0.00-0.50) K/uL Baso # (Auto) 0.01 (0.00-0.20) K/uL Comprehensive Metabolic Panel 04/23/25 Range/Units 06:07 Sodium 141 (136-145) mmol/L Potassium 3.2 L (3.5-5.1) mmol/L Chloride 97 L (98-107) mmol/L Carbon Dioxide 35 H (21-32) mmol/L BUN 32 H (6-23) mg/dl Creatinine 1.49 H D (0.6-1.4) mg/dl Glucose 97 (70-99(Fasting)) mg/dl Calcium 8.7 (8.6-10.3) mg/dl Intake and Output 04/22/25 04/23/25 04/23/25 22:59 06:59 14:59 Intake Total 0 / 780 440 / 780 300 / 300 Output Total 1525 / 3425 900 / 3425 Balance -1525 / -2645 -460 / -2645 300 / 300 Intake: IV 0 / 100 Heparin 40717 Unit/500 ml D5w 0 / 0 25,000 units In 500 ml @ 0 UNITS/HR IV .Q0M [facility] Rx#: [id number] Oral 440 / 680 300 / 300 Output: Urine 700 / 1200 500 / 1200 Urine Amount (Catheter) 825 / 2225 400 / 2225 Lara/Indwelling 825 / 2225 400 / 2225 Other: Weight 109.8 kg Weight Measurement Method Built in [facility] Care Time/CCT Total # of Minutes Spent Total Time Spent with Patient: Total time spent is greater than 50% in coordination of care (as documented) at patient's floor/unit and/or counseling patient: Coding Level of Care Code 15500 SUB INP/OBS CARE 3/50MIN Diagnoses Acute on chronic diastolic heart failure with preserved ejection fraction I50.33 Acute on chronic respiratory failure with hypoxia and hypercapnia J96.21; J96.22 Chronic atrial flutter I48.92 S/P MVR (mitral valve replacement) Z95.2 S/P AVR (aortic valve replacement) Z95.2 Ascites R18.8 Time Spent (min) 30
[2025-04-23] MEDS: APIXABAN 5 MG TABLET PO SCH (10:05)
[2025-04-23] MEDS: LACTULOSE SYRUP 20 GM/30 ML UDC PO SCH (13:55)
[2025-04-24] MEDS: POTASSIUM CHLORIDE CRTAB 20 MEQ TABCR PO STA (08:19)
--- NOTE | 2025-04-24 13:03 | Hospitalist Progress Note ---
Date of Service April 24, 2025 Assessment & Plan (1) Shortness of breath: Plan: 65M with PMH HFpEF, R sided CHF, severe aortic stenosis s/p AVR, cirrhosis, chronic hypoxic resp failure on 2L rest, 4L exertion/qHS, CKD3 BPH, who presents with CHF #Acute on chronic HFpEF #R sided CHF -Secondary to non compliance with diuretic regimen -He was not taking diuretics as he didn't want to keep going to the bathroom to urinate -BNP elevated. CXR and CT chest showing moderate R pleural effusion Has been getting intravenous Lasix 60 mg twice daily and diuresing enough Appreciate cardiology input and recommendation Echo of the heart showed normal LV size, moderate concentric LVH, LVEF 65 to 70%, LA is moderately dilated, RV is moderately dilated, right ventricular systolic function is mildly reduced, there is bioprosthetic aortic valve mild to moderate tricuspid regurgitation and right ventricular systolic pressure is elevated to 40 to 50 mmHg Will monitor PRP Lasix doses have been decreased to 40 mg twice daily by the professional organizer -Cumulative fluid balance is negative 2162 mls Clinically much better and not complaining of any shortness of breath at rest but is still requiring 4 L to maintain saturation Cumulative fluid balance is -4316 mL His furosemide doses have been increased to 60 mg twice daily Has been having enough diuresis with a total fluid balance of -8371 mL Kidney function remains stable and we will continue the current doses of furosemide for a day or 2 #Cirrhosis with ongoing ascites and requiring frequent paracentesis -Not compliant with diuretics as above -Gets monthly paracentesis with last para 04/14 -May need another para but last dose of eliquis was 04/19 -Can plan for para on 04/22 if still here and eliquis has been held for 3 days -Of note, he is not on a bowel regimen -No asterixis on exam or confusion -Will start lactulose while hospitalized. He should have 2-3 Loose bowel movements per day He is status post 2.4 L paracentesis today and has been feeling okay following the procedure Will increase the dose of lactulose to 30 g 3 times daily as he has not had any bowel movement for the last 3 days Right forearm swelling and redness Secondary to extravasation of heparin CT showed possible cellulitis but no abscess Has been getting doxycycline for that Knee pain Has significant osteoarthritis mostly on the left knee Has been complaining of increasing pain since last evening Cannot take any NSAIDs and has been getting diclofenac locally Has been on oxycodone as well for pain control Knee pain is better #Moderate R pleural effusion -Suspect secondary to CHF/cirrhosis -Low suspicion for exudative/parapneumonic effusion -Chronic hypoxic resp failure on 2L rest, 4L exertion. At baseline -Will need repeat imaging once he is on a stable diuretic regimen to ensure it is improving #pAfib -Eliquis held for possible paracentesis -Currently on heparin drip for stroke prophylaxis -Continue metoprolol for rate control Eliquis needs to be on hold for 3 days prior to paracentesis Status post paracentesis and plan to restart Eliquis from tomorrow morning Eliquis has been started full doses #Lymphadenopathy -Incidentally noted multiple axillary and mediastinal lymphadenopathies -Can obtain US of these as outpatient #BPH -Follow with urology as OP. reviewed note from 01/26/25 -Will start flomax and finasteride to help decrease urinary frequency while on diuretics on discharge -Continue echavarria for now -Voiding trial prior to discharge. #Anemia -Chronic normocytic anemia -At baseline -No bleeding -Check Fe panel, B12, folate #CKD3 -At baseline -Avoid nephrotoxic agents if possible -Watch closely while on IV diuretics I spent a total of 37 minutes coordinating, documenting, and providing care for this patient excluding time spent in the performance of separately billed services. This included personally reviewing all current laboratories and imaging studies, medical reconciliation, outpatient chart review and discussion with specialists Admission and Anticipated Discharge Date Admission Date: April 19, 2025 Subjective 04/21/2025 Patient was seen and examined in telemetry unit He has been complaining of bilateral knee pain since last night Denies any other significant symptoms except weakness Denies any nausea and/or vomiting 04/22/2025 The patient was seen and examined in telemetry unit He has had some extravasation of heparin in right forearm last night has been feeling much better Denies any significant symptoms and he will have paracentesis today 04/23/2025 The patient was seen and examined in telemetry unit in presence of the He has been feeling much better Diuresing enough with current furosemide doses Remains weak and lethargic denies any other significant symptoms Review of Systems Review of Systems: All systems reviewed and are unremarkable except as noted below Physical Exam Physical Exam: Lying in bed with distress due to generalized discomfort and bilateral knee pain Constitutional: well developed, well nourished, + ill appearing and + obese Eyes: PERRL, conjunctivae normal, anicteric sclerae ENMT: external ear and nose normal, oropharynx normal Neck: trachea midline, no thyromegaly Respiratory: no respiratory distress Auscultation: + diminished lung sounds and + crackles (Minimal bibasilar crackles ) Cardiovascular: Rate/Rhythm: regular rate and regular rhythm; not tachycardic Heart Sounds: normal S1 and normal S2; no murmur Extremities: + edema ( 1+ edema bilaterally with chronic skin changes) Musculoskeletal: Knee: + knee abnormal to inspection ( Swelling of the both knee joints), + effusion ( minimal effusion clinically) and + skin erythema ( erythema and swelling involving the right forearm and adjoining area elbo) Neurologic: normal touch/pain/proprioception and moves all extremities; no focal motor deficits Lymphatic: no cervical or axillary lymphadenopathy Results & Data Results & Data Vital Signs (Past 12 Hours) Vital Signs Temp Pulse Resp BP Pulse Ox Pulse Ox O2 Del Method 04/24/25 10:48 37.0 C 101 H 22 108/66 97 Nasal Cannula 04/24/25 09:39 Nasal Cannula 04/24/25 08:00 98 04/24/25 07:27 36.9 C 101 H 22 126/71 98 Nasal Cannula 04/24/25 03:20 36.6 C 98 H 18 133/79 98 CPAP O2 Del Method O2 Flow Rate O2 Flow Rate 04/24/25 10:48 04/24/25 09:39 3 04/24/25 08:00 Nasal Cannula 3 04/24/25 07:27 04/24/25 03:20 4 Medications Administered Current Inpatient Medications Acetaminophen (Acetaminophen 500 Mg Tab) 500 mg PO Q6H PRN PRN Reason: fever/pain Stop: 05/19/25 22:54 Allopurinol (Allopurinol 100 Mg Tab) 100 mg PO DAILY [facility] Stop: 05/20/25 08:59 Last Admin: 04/24/25 08:21 Dose: 100 mg Apixaban (Apixaban 5 Mg Tablet) 5 mg PO BID [facility] Stop: 05/23/25 08:59 Last Admin: 04/24/25 08:20 Dose: 5 mg Aspirin (Aspirin 81 Mg Ectab) 81 mg PO QAM [facility] Stop: 05/22/25 15:29 Last Admin: 04/24/25 08:21 Dose: 81 mg Diclofenac Sodium (Diclofenac Sod 1% Gel 100 Gm Tube) 2 gm EXT Q6H PRN; Protocol PRN Reason: joint pain Stop: 05/20/25 03:21 Doxycycline Hyclate (Doxycycline Hyclate 100 Mg Cap) 100 mg PO BID [facility] Stop: 04/29/25 20:59 Last Admin: 04/24/25 08:20 Dose: 100 mg Finasteride (Finasteride 5 Mg Tab) 5 mg PO QAM [facility] Stop: 05/21/25 08:59 Last Admin: 04/24/25 08:20 Dose: 5 mg Furosemide (Furosemide 40 Mg/4 Ml Vial) 60 mg IV [id number] [facility] Stop: 05/22/25 13:59 Last Admin: 04/24/25 06:02 Dose: 60 mg Hydromorphone HCl (Hydromorphone Inj 0.5 Mg/0.5 Ml Syr) 0.5 mg IV Q6H PRN PRN Reason: Pain Stop: 05/03/25 22:54 Promethazine HCl (Phenergan) 6.25 mg in 50.25 mls @ 201 mls/hr IV Q6H PRN PRN Reason: Nausea And Vomiting Stop: 05/19/25 22:54 Lactic Acid (Ammonium Lactate 12% Lotion 225 Gm Btl) 1 gm EXT BID [facility] Stop: 05/20/25 08:59 Last Admin: 04/24/25 08:21 Dose: 1 gm Lactulose (Lactulose Syrup 20 Gm/30 Ml Udc) 30 gm PO TID [facility] Stop: 05/24/25 13:59 Metoprolol Succinate (Metoprolol Succ 50mg Ext Rel Tab) 100 mg PO BID [facility] Stop: 05/20/25 08:59 Last Admin: 04/24/25 08:20 Dose: 100 mg Oxycodone HCl (Oxycodone Hcl Ir 5 Mg Tab (Immediate Release)) 5 - 10 mg PO QID PRN PRN Reason: Pain Stop: 05/03/25 22:54 Last Admin: 04/23/25 21:43 Dose: 10 mg Polyethylene Glycol (Polyethylene (Miralax) 17 Gm Pack) 17 gm PO DAILY PRN PRN Reason: Constipation Stop: 05/21/25 21:02 Last Admin: 04/22/25 08:46 Dose: 17 gm Senna/Docusate Sodium (Docusate Sodium/Senna 50/8.6mg Tab) 1 tab PO QAM [facility] Stop: 05/22/25 08:59 Last Admin: 04/24/25 08:19 Dose: 1 tab Tamsulosin HCl (Tamsulosin Hcl 0.4 Mg Cap) 0.4 mg PO [id number] Stop: 05/20/25 20:59 Last Admin: 04/23/25 20:11 Dose: 0.4 mg
[2025-04-24] MEDS: LACTULOSE SYRUP 20 GM/30 ML UDC PO SCH (14:12)
--- NOTE | 2025-04-24 15:34 | Hospitalist Progress Note ---
Date of Service April 24, 2025 Delayed note for 04/23/2025 Assessment & Plan (1) Shortness of breath: Plan: 65M with PMH HFpEF, R sided CHF, severe aortic stenosis s/p AVR, cirrhosis, chronic hypoxic resp failure on 2L rest, 4L exertion/qHS, CKD3 BPH, who presents with CHF #Acute on chronic HFpEF #R sided CHF -Secondary to non compliance with diuretic regimen -He was not taking diuretics as he didn't want to keep going to the bathroom to urinate -BNP elevated. CXR and CT chest showing moderate R pleural effusion Has been getting intravenous Lasix 60 mg twice daily and diuresing enough Appreciate cardiology input and recommendation Echo of the heart showed normal LV size, moderate concentric LVH, LVEF 65 to 70%, LA is moderately dilated, RV is moderately dilated, right ventricular systolic function is mildly reduced, there is bioprosthetic aortic valve mild to moderate tricuspid regurgitation and right ventricular systolic pressure is elevated to 40 to 50 mmHg Will monitor PRP Lasix doses have been decreased to 40 mg twice daily by the cotton opener -Cumulative fluid balance is negative 2162 mls Clinically much better and not complaining of any shortness of breath at rest but is still requiring 4 L to maintain saturation Cumulative fluid balance is -4316 mL His furosemide doses have been increased to 60 mg twice daily He has been diuresing enough and will continue current dose of Lasix for now #Cirrhosis with ongoing ascites and requiring frequent paracentesis -Not compliant with diuretics as above -Gets monthly paracentesis with last para 04/14 -May need another para but last dose of eliquis was 04/19 -Can plan for para on 04/22 if still here and eliquis has been held for 3 days -Of note, he is not on a bowel regimen -No asterixis on exam or confusion -Will start lactulose while hospitalized. He should have 2-3 Loose bowel movements per day He is status post 2.4 L paracentesis today and has been feeling okay following the procedure He will be given lactulose for bowel movement Right forearm swelling and redness Secondary to extravasation of heparin CT showed possible cellulitis but no abscess Has been getting doxycycline for that Clinically much better Knee pain Has significant osteoarthritis mostly on the left knee Has been complaining of increasing pain since last evening Cannot take any NSAIDs and has been getting diclofenac locally Has been on oxycodone as well for pain control Knee pain is better #Moderate R pleural effusion -Suspect secondary to CHF/cirrhosis -Low suspicion for exudative/parapneumonic effusion -Chronic hypoxic resp failure on 2L rest, 4L exertion. At baseline -Will need repeat imaging once he is on a stable diuretic regimen to ensure it is improving #pAfib -Eliquis held for possible paracentesis -Currently on heparin drip for stroke prophylaxis -Continue metoprolol for rate control Eliquis needs to be on hold for 3 days prior to paracentesis Status post paracentesis and plan to restart Eliquis from tomorrow morning #Lymphadenopathy -Incidentally noted multiple axillary and mediastinal lymphadenopathies -Can obtain US of these as outpatient #BPH -Follow with urology as OP. reviewed note from 01/26/25 -Will start flomax and finasteride to help decrease urinary frequency while on diuretics on discharge -Continue echavarria for now -Voiding trial prior to discharge. #Anemia -Chronic normocytic anemia -At baseline -No bleeding -Check Fe panel, B12, folate #CKD3 -At baseline -Avoid nephrotoxic agents if possible -Watch closely while on IV diuretics I spent a total of 37 minutes coordinating, documenting, and providing care for this patient excluding time spent in the performance of separately billed services. This included personally reviewing all current laboratories and imaging studies, medical reconciliation, outpatient chart review and discussion with specialists Admission and Anticipated Discharge Date Admission Date: April 19, 2025 Subjective 04/21/2025 Patient was seen and examined in telemetry unit He has been complaining of bilateral knee pain since last night Denies any other significant symptoms except weakness Denies any nausea and/or vomiting 04/22/2025 The patient was seen and examined in telemetry unit He has had some extravasation of heparin in right forearm last night has been feeling much better Denies any significant symptoms and he will have paracentesis today 04/23/2025 Patient was seen and examined in telemetry unit He has been feeling better and denies any significant symptoms except weakness He has been waiting for physical therapy and appropriate disposition Review of Systems Review of Systems: All systems reviewed and are unremarkable except as noted below Physical Exam Physical Exam: Lying in bed with distress due to generalized discomfort and bilateral knee pain Constitutional: well developed, well nourished, + ill appearing and + obese Eyes: PERRL, conjunctivae normal, anicteric sclerae ENMT: external ear and nose normal, oropharynx normal Neck: trachea midline, no thyromegaly Respiratory: no respiratory distress Auscultation: + diminished lung sounds and + crackles (Minimal bibasilar crackles ) Cardiovascular: Rate/Rhythm: regular rate and regular rhythm; not tachycardic Heart Sounds: normal S1 and normal S2; no murmur Extremities: + edema ( 1+ edema bilaterally with chronic skin changes) Musculoskeletal: Knee: + knee abnormal to inspection ( Swelling of the both knee joints), + effusion ( minimal effusion clinically) and + skin erythema ( erythema and swelling involving the right forearm and adjoining area elbo) Neurologic: normal touch/pain/proprioception and moves all extremities; no focal motor deficits Lymphatic: no cervical or axillary lymphadenopathy Results & Data Results & Data Vital Signs (Past 12 Hours) Vital Signs Temp Pulse Pulse Resp BP Pulse Ox Pulse Ox 04/24/25 14:51 101 H 04/24/25 10:48 37.0 C 101 H 22 108/66 97 04/24/25 09:39 04/24/25 08:00 98 04/24/25 07:27 36.9 C 101 H 22 126/71 98 O2 Del Method O2 Del Method O2 Flow Rate O2 Flow Rate 04/24/25 14:51 04/24/25 10:48 Nasal Cannula 04/24/25 09:39 Nasal Cannula 3 04/24/25 08:00 Nasal Cannula 3 04/24/25 07:27 Nasal Cannula
--- NOTE | 2025-04-24 15:38 | Cardiology Progress Note ---
Date of Service April 24, 2025 Assessment & Plan (1) Acute on chronic diastolic heart failure with preserved ejection fraction: (2) Acute on chronic respiratory failure with hypoxia and hypercapnia: (3) Chronic atrial flutter: (4) S/P MVR (mitral valve replacement): (5) S/P AVR (aortic valve replacement): (6) Ascites: Plan Patient is a 65 year old male with complex history of HFpEF, right heart failure, chronic respiratory failure, history of AVR and MVR with history of endocarditis, recurrent ascites, and non compliance with diuretics who presented to [facility] with worsening SOB/fluid retention consistent with acute on chronic HFpEF and acute right sided HF. Plan 04/24/2025: -patient continues to diurese well -2175 ml fluid deficit -Maintain 1500ml fluid restriction at this time. 2G low sodium diet. -Strict I&O, daily weights. -Close monitoring of serum renal function and electrolytes. Serum K 3.2--received PO supplementation yesterday, recheck CMP and mag in AM -Goal serum K> 4.0 and goal serum mag > 2.0 -Continue Furosemide 60mg IV BID -Per review of prior notes, history of hyperkalemia, avoid use of spironolactone. -Likely benefit from repeat paracentesis. -Eliquis on Hold. -On IV heparin for stroke prophylaxis with chronic afib. -Continue metoprolol succinate 100 mg BID History of AVR and MVR with endocarditis in November 2024 -no symptoms to suggest endocarditis at this time -Echo with normal LVEF and no significant valvular disease noted. Case has been discussed with Dr. Andrea. Further recommendations regarding plan of care as per her assessment. I spent a total of 30 minutes on the date of service in preparation, delivery, documentation of the care provided to the patient excluding any time spent in the performance of separately billed services. SANG Alvarez [facility] Cardiology [facility] Admission and Anticipated Discharge Date Admission Date: April 19, 2025 Supervising Physician Co-Signing Physician Notes I have reviewed the advanced practitioner's documentation on the date of service referenced in note, and I agree with, and take responsibility for the plan of care. I spent a total of [15] minutes coordinating, documenting, and providing care for this patient excluding time spent in the performance of separately billed services or time spent by another provider. Continue IV furosemide Subjective 04/24/2025: Patient seen and examined in follow up today. Feeling fair. Offers no acute cardiac concerns. Continues to diurese well. Cr. Improving. Labs, vitals, diagnostics, telemetry and documentation reviewed. Telemetry reviewed showing atrial flutter rates 100bpm. Chronic Review of Systems Review of Systems: All systems reviewed & are unremarkable except as noted in HPI & below Physical Exam Constitutional: + obese; no acute distress Neck: normal visual inspection and trachea midline Respiratory: normal respiratory effort; no respiratory distress, no labored breathing and no cough Auscultation: + diminished lung sounds (bilateral bases ); no crackles, no rales, no rhonchi and no wheezes Cardiovascular: Rate/Rhythm: + tachycardic and + irregularly irregular Heart Sounds: normal S1, normal S2 and + murmur (+1/6 systolic mumur) Vessels: dorsalis pedis pulses present; no JVD Extremities: + edema (+2 BLE ) Skin: + erythema (bilateral lower extremities ) Psychiatric: A+Ox3, euthymic affect Results & Data Vital Signs (Past 12 Hours) Vital Signs Temp Pulse Pulse Resp BP Pulse Ox Pulse Ox 04/24/25 14:51 101 H 04/24/25 10:48 37.0 C 101 H 22 108/66 97 04/24/25 09:39 04/24/25 08:00 98 04/24/25 07:27 36.9 C 101 H 22 126/71 98 O2 Del Method O2 Del Method O2 Flow Rate O2 Flow Rate 04/24/25 14:51 04/24/25 10:48 Nasal Cannula 04/24/25 09:39 Nasal Cannula 3 04/24/25 08:00 Nasal Cannula 3 04/24/25 07:27 Nasal Cannula Laboratory Results Intake and Output 04/24/25 04/24/25 04/24/25 06:59 14:59 22:59 Intake Total 50 / 1330 350 / 350 Output Total 375 / 2600 800 / 800 Balance -325 / -1270 -450 / -450 Intake: Oral 50 / 1330 350 / 350 Output: Urine Amount (Catheter) 375 / 2600 800 / 800 Lara/Indwelling 375 / 2600 800 / 800 # Bowel Movements 0 / 0 Other: Weight 108.4 kg PG Care Time/CCT Total # of Minutes Spent Total Time Spent with Patient: Total time spent is greater than 50% in coordination of care (as documented) at patient's floor/unit and/or counseling patient: Coding Level of Care Code 52204 SUB INP/OBS CARE 3/50MIN Diagnoses Acute on chronic diastolic heart failure with preserved ejection fraction I50.33 Acute on chronic respiratory failure with hypoxia and hypercapnia J96.21; J96.22 Chronic atrial flutter I48.92 S/P MVR (mitral valve replacement) Z95.2 S/P AVR (aortic valve replacement) Z95.2 Ascites R18.8 Time Spent (min) 30
[2025-04-24] MEDS: PHENAZOPYRIDINE HCL 200 MG TAB PO PRN (22:47)
[2025-04-25 06:43] LABS: Hematocrit (blood only) 32.2 % (42.0-52.0); Hemoglobin 9.0 g/dL (14.0-18.0); Immature Granulocytes # (auto) 0.01 K/uL (0.01-0.20); Immature Granulocytes % (auto) 0.2 %; Mean Corpuscular Hemoglobin 24.3 pg (25.0-34.0); Mean Corpuscular Volume 86.8 fL (80.0-100.0); Platelet Count 210 K/uL (130-400); RDW Standard Deviation 56.1 fL (36.4-46.3); Red Blood Count 3.71 M/uL (4.70-6.10); White Blood Count 5.03 K/ul (4.8-10.8)
[2025-04-25 07:01] LABS: Anion Gap 7.0 (3-11); Blood Urea Nitrogen 32.0 mg/dl (6-23); Calcium 8.9 mg/dl (8.6-10.3); Carbon Dioxide 39.0 mmol/L (21-32); Chloride 96.0 mmol/L (98-107); Creatinine Clr Calc Pharmacy 65.2 ml/min; Glucose 103.0 mg/dl (70-99(Fasting)); Magnesium 1.7 mg/dl (1.7-2.4); Potassium 3.4 mmol/L (3.5-5.1); Sodium 142.0 mmol/L (136-145)
[2025-04-25] MEDS: POTASSIUM CHLORIDE CRTAB 20 MEQ TABCR PO STA (08:55)
--- NOTE | 2025-04-25 13:10 | Cardiology Progress Note ---
Date of Service April 25, 2025 Assessment & Plan (1) Acute on chronic diastolic heart failure with preserved ejection fraction: (2) Acute on chronic respiratory failure with hypoxia and hypercapnia: (3) Chronic atrial flutter: (4) S/P MVR (mitral valve replacement): (5) S/P AVR (aortic valve replacement): (6) Ascites: Plan Patient is a 65 year old male with complex history of HFpEF, right heart failure, chronic respiratory failure, history of AVR and MVR with history of endocarditis, recurrent ascites, and non compliance with diuretics who presented to [facility] with worsening SOB/fluid retention consistent with acute on chronic HFpEF and acute right sided HF. Plan 04/25/2025: -patient continues to diurese well -1701 ml fluid deficit -Maintain 1500ml fluid restriction at this time. 2G low sodium diet. -Strict I&O, daily weights. -Close monitoring of serum renal function and electrolytes. -Goal serum K> 4.0 and goal serum mag > 2.0 -Continue Furosemide 60mg IV BID -Per review of prior notes, history of hyperkalemia, avoid use of s pironolactone. -There was previous consideration given for possible repeat paracentesis--it does not appear they plan to pursue at this time as renal function is stable and he continues to diurese well with IV Furosemide. -On Eliquis for stroke prophylaxis with chronic afib/flutter. -Continue metoprolol succinate 100 mg BID History of AVR and MVR with endocarditis in November 2024 -no symptoms to suggest endocarditis at this time -Echo with normal LVEF and no significant valvular disease noted. Case has been discussed with Dr. Andrea. Further recommendations regarding plan of care as per her assessment. I spent a total of 30 minutes on the date of service in preparation, delivery, documentation of the care provided to the patient excluding any time spent in the performance of separately billed services. SANG Alvarez [facility] Admission and Anticipated Discharge Date Admission Date: April 19, 2025 Supervising Physician Co-Signing Physician Notes I have reviewed the advanced practitioner's documentation on the date of service referenced in note, and I agree with, and take responsibility for the plan of care. I spent a total of [15] minutes coordinating, documenting, and providing care for this patient excluding time spent in the performance of separately billed services or time spent by another provider. Subjective 04/25/2025: Patient seen and examined in follow up today. Feeling fair. Offers no acute cardiac concerns. Continues to diurese well. Cr. Improving/stable. Labs, vitals, diagnostics, telemetry and documentation reviewed. Telemetry reviewed showing atrial flutter rates 100bpm. Chronic Review of Systems Review of Systems: All systems reviewed & are unremarkable except as noted in HPI & below Physical Exam Constitutional: + obese; no acute distress Neck: normal visual inspection and trachea midline Respiratory: normal respiratory effort; no respiratory distress, no labored breathing and no cough Auscultation: + diminished lung sounds (bilateral bases ); no crackles, no rales, no rhonchi and no wheezes Cardiovascular: Rate/Rhythm: + tachycardic and + irregularly irregular Heart Sounds: normal S1, normal S2 and + murmur (+1/6 systolic mumur) Vessels: dorsalis pedis pulses present; no JVD Extremities: + edema (+2 BLE ) Skin: + erythema (bilateral lower extremities ) Psychiatric: A+Ox3, euthymic affect Results & Data Vital Signs (Past 12 Hours) Vital Signs Temp Pulse Pulse Pulse Resp BP Pulse Ox 04/25/25 10:42 36.9 C 100 H 22 139/78 97 04/25/25 08:00 101 H 04/25/25 08:00 04/25/25 08:00 04/25/25 07:10 37.4 C 101 H 22 123/67 96 04/25/25 02:59 37.2 C 102 H 20 118/64 93 O2 Del Method O2 Del Method O2 Flow Rate O2 Flow Rate 04/25/25 10:42 Room Air 04/25/25 08:00 04/25/25 08:00 Nasal Cannula 2 04/25/25 08:00 Nasal Cannula 2 04/25/25 07:10 Nasal Cannula 04/25/25 02:59 Nasal Cannula 2 Laboratory Results CBC 04/25/25 Range/Units 06:20 WBC 5.03 (4.8-10.8) K/ul RBC 3.71 L (4.70-6.10) M/uL Hgb 9.0 L (14.0-18.0) g/dL Hct 32.2 L (42.0-52.0) % Plt Count 210 (130-400) K/uL Neut # (Auto) 3.61 (1.40-6.50) K/uL Lymph # (Auto) 0.39 L (1.20-3.40) K/uL [place] # (Auto) 0.75 H (0.11-0.59) K/uL Eos # (Auto) 0.26 (0.00-0.50) K/uL Baso # (Auto) 0.01 (0.00-0.20) K/uL Comprehensive Metabolic Panel 04/25/25 Range/Units 06:20 Sodium 142 (136-145) mmol/L Potassium 3.4 L (3.5-5.1) mmol/L Chloride 96 L (98-107) mmol/L Carbon Dioxide 39 H (21-32) mmol/L BUN 32 H (6-23) mg/dl Creatinine 1.33 (0.6-1.4) mg/dl Glucose 103 H (70-99(Fasting)) mg/dl Calcium 8.9 (8.6-10.3) mg/dl Intake and Output 04/24/25 04/25/25 04/25/25 22:59 06:59 14:59 Intake Total 350 / 850 150 / 850 500 / 500 Output Total 1300 / 2551 451 / 2551 Balance -950 / -1701 -301 / -1701 500 / 500 Intake: Oral 350 / 850 150 / 850 500 / 500 Output: Urine Amount (Catheter) 1300 / 2550 450 / 2550 Lara/Indwelling 1300 / 2550 450 / 2550 # Bowel Movements Other: Weight 108.2 kg Weight Measurement Method Built in [facility] PG Care Time/CCT Total # of Minutes Spent Total Time Spent with Patient: Total time spent is greater than 50% in coordination of care (as documented) at patient's floor/unit and/or counseling patient: Coding Level of Care Code 23239 SUB INP/OBS CARE 3/50MIN Diagnoses Acute on chronic diastolic heart failure with preserved ejection fraction I50.33 Acute on chronic respiratory failure with hypoxia and hypercapnia J96.21; J96.22 Chronic atrial flutter I48.92 S/P MVR (mitral valve replacement) Z95.2 S/P AVR (aortic valve replacement) Z95.2 Ascites R18.8 Time Spent (min) 30
--- NOTE | 2025-04-25 14:26 | Hospitalist Progress Note ---
Date of Service April 25, 2025 Assessment & Plan (1) Shortness of breath: Plan: 65M with PMH HFpEF, R sided CHF, severe aortic stenosis s/p AVR, cirrhosis, chronic hypoxic resp failure on 2L rest, 4L exertion/qHS, CKD3 BPH, who presents with CHF #Acute on chronic HFpEF #R sided CHF -Secondary to non compliance with diuretic regimen -He was not taking diuretics as he didn't want to keep going to the bathroom to urinate -BNP elevated. CXR and CT chest showing moderate R pleural effusion Has been getting intravenous Lasix 60 mg twice daily and diuresing enough Appreciate cardiology input and recommendation Echo of the heart showed normal LV size, moderate concentric LVH, LVEF 65 to 70%, LA is moderately dilated, RV is moderately dilated, right ventricular systolic function is mildly reduced, there is bioprosthetic aortic valve mild to moderate tricuspid regurgitation and right ventricular systolic pressure is elevated to 40 to 50 mmHg Will monitor PRP Lasix doses have been decreased to 40 mg twice daily by the virology teacher -Cumulative fluid balance is negative 2162 mls Clinically much better and not complaining of any shortness of breath at rest but is still requiring 4 L to maintain saturation Cumulative fluid balance is -4316 mL His furosemide doses have been increased to 60 mg twice daily He has been diuresing enough and will continue current dose of Lasix for now Will continue Lasix 40 mg intravenously twice a day #Cirrhosis with ongoing ascites and requiring frequent paracentesis -Not compliant with diuretics as above -Gets monthly paracentesis with last para 04/14 -May need another para but last dose of eliquis was 04/19 -Can plan for para on 04/22 if still here and eliquis has been held for 3 days -Of note, he is not on a bowel regimen -No asterixis on exam or confusion -Will start lactulose while hospitalized. He should have 2-3 Loose bowel movements per day He is status post 2.4 L paracentesis today and has been feeling okay following the procedure He will be given lactulose for bowel movement Has not had a bowel movement for the last few days Right forearm swelling and redness Secondary to extravasation of heparin CT showed possible cellulitis but no abscess Has been getting doxycycline for that Clinically much better Knee pain Has significant osteoarthritis mostly on the left knee Has been complaining of increasing pain since last evening Cannot take any NSAIDs and has been getting diclofenac locally Has been on oxycodone as well for pain control Knee pain is better Denies any more pain #Moderate R pleural effusion -Suspect secondary to CHF/cirrhosis -Low suspicion for exudative/parapneumonic effusion -Chronic hypoxic resp failure on 2L rest, 4L exertion. At baseline -Will need repeat imaging once he is on a stable diuretic regimen to ensure it is improving #pAfib -Eliquis held for possible paracentesis -Currently on heparin drip for stroke prophylaxis -Continue metoprolol for rate control Eliquis needs to be on hold for 3 days prior to paracentesis Status post paracentesis and plan to restart Eliquis from tomorrow morning #Lymphadenopathy -Incidentally noted multiple axillary and mediastinal lymphadenopathies -Can obtain US of these as outpatient #BPH -Follow with urology as OP. reviewed note from 01/26/25 -Will start flomax and finasteride to help decrease urinary frequency while on diuretics on discharge -Continue echavarria for now -Voiding trial prior to discharge. #Anemia -Chronic normocytic anemia -At baseline -No bleeding -Check Fe panel, B12, folate #CKD3 -At baseline -Avoid nephrotoxic agents if possible -Watch closely while on IV diuretics I spent a total of 33 minutes coordinating, documenting, and providing care for this patient excluding time spent in the performance of separately billed services. This included personally reviewing all current laboratories and imaging studies, medical reconciliation, outpatient chart review and discussion with specialists Admission and Anticipated Discharge Date Admission Date: April 19, 2025 Subjective 04/21/2025 Patient was seen and examined in telemetry unit He has been complaining of bilateral knee pain since last night Denies any other significant symptoms except weakness Denies any nausea and/or vomiting 04/22/2025 The patient was seen and examined in telemetry unit He has had some extravasation of heparin in right forearm last night has been feeling much better Denies any significant symptoms and he will have paracentesis today 04/23/2025 Patient was seen and examined in telemetry unit He has been feeling better and denies any significant symptoms except weakness He has been waiting for physical therapy and appropriate disposition 04/24/2025 The patient was seen and examined in telemetry unit He has been stable and complains to have thirst Review of Systems Review of Systems: All systems reviewed and are unremarkable except as noted below Physical Exam Physical Exam: Lying in bed with distress due to generalized discomfort and bilateral knee pain Constitutional: well developed, well nourished, + ill appearing and + obese Eyes: PERRL, conjunctivae normal, anicteric sclerae ENMT: external ear and nose normal, oropharynx normal Neck: trachea midline, no thyromegaly Respiratory: no respiratory distress Auscultation: + diminished lung sounds and + crackles (Minimal bibasilar crackles ) Cardiovascular: Rate/Rhythm: regular rate and regular rhythm; not tachycardic Heart Sounds: normal S1 and normal S2; no murmur Extremities: + edema ( 1+ edema bilaterally with chronic skin changes) Musculoskeletal: Knee: + knee abnormal to inspection ( Swelling of the both knee joints), + effusion ( minimal effusion clinically) and + skin erythema ( erythema and swelling involving the right forearm and adjoining area elbo) Neurologic: normal touch/pain/proprioception and moves all extremities; no focal motor deficits Lymphatic: no cervical or axillary lymphadenopathy Results & Data Results & Data Vital Signs (Past 12 Hours) Vital Signs Temp Pulse Pulse Pulse Resp BP Pulse Ox 04/25/25 13:00 101 H 04/25/25 10:42 36.9 C 100 H 22 139/78 97 04/25/25 08:00 101 H 04/25/25 08:00 04/25/25 08:00 04/25/25 07:10 37.4 C 101 H 22 123/67 96 04/25/25 02:59 37.2 C 102 H 20 118/64 93 O2 Del Method O2 Del Method O2 Flow Rate O2 Flow Rate 04/25/25 13:00 04/25/25 10:42 Room Air 04/25/25 08:00 04/25/25 08:00 Nasal Cannula 2 04/25/25 08:00 Nasal Cannula 2 04/25/25 07:10 Nasal Cannula 04/25/25 02:59 Nasal Cannula 2
--- NOTE | 2025-04-25 14:30 | Hospitalist Progress Note ---
Date of Service April 25, 2025 Assessment & Plan (1) Shortness of breath: Plan: 65M with PMH HFpEF, R sided CHF, severe aortic stenosis s/p AVR, cirrhosis, chronic hypoxic resp failure on 2L rest, 4L exertion/qHS, CKD3 BPH, who presents with CHF #Acute on chronic HFpEF #R sided CHF -Secondary to non compliance with diuretic regimen -He was not taking diuretics as he didn't want to keep going to the bathroom to urinate -BNP elevated. CXR and CT chest showing moderate R pleural effusion Has been getting intravenous Lasix 60 mg twice daily and diuresing enough Appreciate cardiology input and recommendation Echo of the heart showed normal LV size, moderate concentric LVH, LVEF 65 to 70%, LA is moderately dilated, RV is moderately dilated, right ventricular systolic function is mildly reduced, there is bioprosthetic aortic valve mild to moderate tricuspid regurgitation and right ventricular systolic pressure is elevated to 40 to 50 mmHg Will monitor PRP Lasix doses have been decreased to 40 mg twice daily by the product lead -Cumulative fluid balance is negative 2162 mls Clinically much better and not complaining of any shortness of breath at rest but is still requiring 4 L to maintain saturation Cumulative fluid balance is -4316 mL His furosemide doses have been increased to 60 mg twice daily He has been diuresing enough and will continue current dose of Lasix for now Will continue Lasix 60 mg intravenously twice a day He has been having much diuresis and a total of -8772 mL fluid balance as of today Will continue current dose of Lasix at 60 mg IV twice daily #Cirrhosis with ongoing ascites and requiring frequent paracentesis -Not compliant with diuretics as above -Gets monthly paracentesis with last para 04/14 -May need another para but last dose of eliquis was 04/19 -Can plan for para on 04/22 if still here and eliquis has been held for 3 days -Of note, he is not on a bowel regimen -No asterixis on exam or confusion -Will start lactulose while hospitalized. He should have 2-3 Loose bowel moveme nts per day He is status post 2.4 L paracentesis today and has been feeling okay following the procedure He will be given lactulose for bowel movement Has not had a bowel movement for the last few days His bowel is moved and feeling a lot better Right forearm swelling and redness Secondary to extravasation of heparin CT showed possible cellulitis but no abscess Has been getting doxycycline for that Clinically much better Knee pain Has significant osteoarthritis mostly on the left knee Has been complaining of increasing pain since last evening Cannot take any NSAIDs and has been getting diclofenac locally Has been on oxycodone as well for pain control Knee pain is better Denies any more pain #Moderate R pleural effusion -Suspect secondary to CHF/cirrhosis -Low suspicion for exudative/parapneumonic effusion -Chronic hypoxic resp failure on 2L rest, 4L exertion. At baseline -Will need repeat imaging once he is on a stable diuretic regimen to ensure it is improving He has been saturating normally on room air #pAfib -Eliquis held for possible paracentesis -Currently on heparin drip for stroke prophylaxis -Continue metoprolol for rate control Eliquis needs to be on hold for 3 days prior to paracentesis Status post paracentesis and plan to restart Eliquis from tomorrow morning #Lymphadenopathy -Incidentally noted multiple axillary and mediastinal lymphadenopathies -Can obtain US of these as outpatient #BPH -Follow with urology as OP. reviewed note from 01/26/25 -Will start flomax and finasteride to help decrease urinary frequency while on diuretics on discharge -Continue echavarria for now -Voiding trial prior to discharge. #Anemia -Chronic normocytic anemia -At baseline -No bleeding -Check Fe panel, B12, folate #CKD3 -At baseline -Avoid nephrotoxic agents if possible -Watch closely while on IV diuretics I spent a total of 37 minutes coordinating, documenting, and providing care for this patient excluding time spent in the performance of separately billed services. This included personally reviewing all current laboratories and imaging studies, medical reconciliation, outpatient chart review and discussion with specialists Admission and Anticipated Discharge Date Admission Date: April 19, 2025 Subjective 04/21/2025 Patient was seen and examined in telemetry unit He has been complaining of bilateral knee pain since last night Denies any other significant symptoms except weakness Denies any nausea and/or vomiting 04/22/2025 The patient was seen and examined in telemetry unit He has had some extravasation of heparin in right forearm last night has been feeling much better Denies any significant symptoms and he will have paracentesis today 04/23/2025 Patient was seen and examined in telemetry unit He has been feeling better and denies any significant symptoms except weakness He has been waiting for physical therapy and appropriate disposition 04/24/2025 The patient was seen and examined in telemetry unit He has been stable and complains to have thirst 04/25/2025 The patient was seen and examined in telemetry unit He has been much better with profuse diuresis Has been saturating normally on room air Weakness seems to be improving and edema is much improved Review of Systems Review of Systems: All systems reviewed and are unremarkable except as noted below Physical Exam Physical Exam: Lying in bed with distress due to generalized discomfort and bilateral knee pain Constitutional: well developed, well nourished, + ill appearing and + obese Eyes: PERRL, conjunctivae normal, anicteric sclerae ENMT: external ear and nose normal, oropharynx normal Neck: trachea midline, no thyromegaly Respiratory: no respiratory distress Auscultation: + diminished lung sounds and + crackles (Minimal bibasilar crackles ) Cardiovascular: Rate/Rhythm: regular rate and regular rhythm; not tachycardic Heart Sounds: normal S1 and normal S2; no murmur Extremities: + edema ( 1+ edema bilaterally with chronic skin changes) Gastrointestinal (Abdomen): Inspection/Auscultation: normal bowel sounds; abdomen not distended Percussion/Palpation: abdomen soft; abdomen nontender Musculoskeletal: Knee: + knee abnormal to inspection ( Swelling of the both knee joints), + effusion ( minimal effusion clinically) and + skin erythema ( erythema and swelling involving the right forearm and adjoining area elbo) Neurologic: normal touch/pain/proprioception and moves all extremities; no focal motor deficits Lymphatic: no cervical or axillary lymphadenopathy Results & Data Results & Data Vital Signs (Past 12 Hours) Vital Signs Temp Pulse Pulse Pulse Resp BP Pulse Ox 04/25/25 13:00 101 H 04/25/25 10:42 36.9 C 100 H 22 139/78 97 04/25/25 08:00 101 H 04/25/25 08:00 04/25/25 08:00 04/25/25 07:10 37.4 C 101 H 22 123/67 96 04/25/25 02:59 37.2 C 102 H 20 118/64 93 O2 Del Method O2 Del Method O2 Flow Rate O2 Flow Rate 04/25/25 13:00 04/25/25 10:42 Room Air 04/25/25 08:00 04/25/25 08:00 Nasal Cannula 2 04/25/25 08:00 Nasal Cannula 2 04/25/25 07:10 Nasal Cannula 04/25/25 02:59 Nasal Cannula 2 Laboratory Results Short CBC 04/25/25 Range/Units 06:20 WBC 5.03 (4.8-10.8) K/ul Hgb 9.0 L (14.0-18.0) g/dL Hct 32.2 L (42.0-52.0) % Plt Count 210 (130-400) K/uL BMP 04/25/25 06:20 Sodium 142 Potassium 3.4 L Chloride 96 L Carbon Dioxide 39 H BUN 32 H Creatinine 1.33 Glucose 103 H Calcium 8.9 Medications Administered Current Inpatient Medications Acetaminophen (Acetaminophen 500 Mg Tab) 500 mg PO Q6H PRN PRN Reason: fever/pain Stop: 05/19/25 22:54 Allopurinol (Allopurinol 100 Mg Tab) 100 mg PO DAILY PIPER Stop: 05/20/25 08:59 Last Admin: 04/25/25 08:12 Dose: 100 mg Apixaban (Apixaban 5 Mg Tablet) 5 mg PO BID PIPER Stop: 05/23/25 08:59 Last Admin: 04/25/25 08:12 Dose: 5 mg Aspirin (Aspirin 81 Mg Ectab) 81 mg PO QAM PIPER Stop: 05/22/25 15:29 Last Admin: 04/25/25 08:12 Dose: 81 mg Diclofenac Sodium (Diclofenac Sod 1% Gel 100 Gm Tube) 2 gm EXT Q6H PRN; Protocol PRN Reason: joint pain Stop: 05/20/25 03:21 Doxycycline Hyclate (Doxycycline Hyclate 100 Mg Cap) 100 mg PO BID PIPER Stop: 04/29/25 20:59 Last Admin: 04/25/25 08:12 Dose: 100 mg Finasteride (Finasteride 5 Mg Tab) 5 mg PO QAM [facility] Stop: 05/21/25 08:59 Last Admin: 04/25/25 08:11 Dose: 5 mg Furosemide (Furosemide 40 Mg/4 Ml Vial) 60 mg IV [id number] PIPER Stop: 05/22/25 13:59 Last Admin: 04/25/25 08:10 Dose: 60 mg Hydromorphone HCl (Hydromorphone Inj 0.5 Mg/0.5 Ml Syr) 0.5 mg IV Q6H PRN PRN Reason: Pain Stop: 05/03/25 22:54 Promethazine HCl (Phenergan) 6.25 mg in 50.25 mls @ 201 mls/hr IV Q6H PRN PRN Reason: Nausea And Vomiting Stop: 05/19/25 22:54 Lactic Acid (Ammonium Lactate 12% Lotion 225 Gm Btl) 1 gm EXT BID [facility] Stop: 05/20/25 08:59 Last Admin: 04/25/25 08:12 Dose: 1 gm Lactulose (Lactulose Syrup 20 Gm/30 Ml Udc) 30 gm PO TID [facility] Stop: 05/24/25 13:59 Last Admin: 04/25/25 08:11 Dose: 30 gm Metoprolol Succinate (Metoprolol Succ 50mg Ext Rel Tab) 100 mg PO BID [facility] Stop: 05/20/25 08:59 Last Admin: 04/25/25 08:12 Dose: 100 mg Oxycodone HCl (Oxycodone Hcl Ir 5 Mg Tab (Immediate Release)) 5 - 10 mg PO QID PRN PRN Reason: Pain Stop: 05/03/25 22:54 Last Admin: 04/24/25 20:55 Dose: 10 mg Phenazopyridine HCl (Phenazopyridine Hcl 200 Mg Tab) 200 mg PO TID PRN PRN Reason: Bladder pain Stop: 05/24/25 22:34 Last Admin: 04/25/25 08:11 Dose: 200 mg Polyethylene Glycol (Polyethylene (Miralax) 17 Gm Pack) 17 gm PO DAILY PRN PRN Reason: Constipation Stop: 05/21/25 21:02 Last Admin: 04/22/25 08:46 Dose: 17 gm Senna/Docusate Sodium (Docusate Sodium/Senna 50/8.6mg Tab) 1 tab PO QAM [facility] Stop: 05/22/25 08:59 Last Admin: 04/25/25 08:10 Dose: Not Given Tamsulosin HCl (Tamsulosin Hcl 0.4 Mg Cap) 0.4 mg PO HS [facility] Stop: 05/20/25 20:59 Last Admin: 04/24/25 20:57 Dose: 0.4 mg
[2025-04-26 10:11] LABS: Hematocrit (blood only) 31.3 % (42.0-52.0); Hemoglobin 8.9 g/dL (14.0-18.0); Immature Granulocytes # (auto) 0.04 K/uL (0.01-0.20); Immature Granulocytes % (auto) 0.8 %; Mean Corpuscular Hemoglobin 24.7 pg (25.0-34.0); Mean Corpuscular Volume 86.7 fL (80.0-100.0); Platelet Count 208 K/uL (130-400); RDW Standard Deviation 55.8 fL (36.4-46.3); Red Blood Count 3.61 M/uL (4.70-6.10); White Blood Count 5.15 K/ul (4.8-10.8)
[2025-04-26 10:52] LABS: Anion Gap 7.0 (3-11); Blood Urea Nitrogen 35.0 mg/dl (6-23); Calcium 9.1 mg/dl (8.6-10.3); Carbon Dioxide 41.0 mmol/L (21-32); Chloride 93.0 mmol/L (98-107); Creatinine Clr Calc Pharmacy 62.7 ml/min; Glucose 144.0 mg/dl (70-99(Fasting)); Magnesium 1.7 mg/dl (1.7-2.4); Potassium 3.6 mmol/L (3.5-5.1); Sodium 141.0 mmol/L (136-145)
--- NOTE | 2025-04-26 12:18 | Palliative Care Consultation ---
Date of Consultation April 26, 2025 Assessment & Plan (1) Ascites: (2) Shortness of breath: (3) Generalized weakness: (4) Palliative care by specialist: Met with pt and his Apoorva at bedside for ACP discussion from 13:00- 13:45. Introduced Palliative Medicine and explained our role in advanced care planning, symptom management and navigation through the progression of life limiting disease. Patient and/or family were receptive to palliative services for goals of care discussions. Reviewed we are different from hospice, a home health nurse visiting service. (5) Knee pain, chronic: Pt c/o chronic debilitating arthritic type pain in bilateral knees which he states is well managed with 5mg oxycodone PRN once/twice per day.. Wilian reports he has previously had injections in his knees, that gave him some relief, but it was short lived. He shared that he has fear of becoming dependent on opiate pain medications, but Tylenol is not helpful. Discussed non- opiate adjunctive therapies for analgesia, like heating pads, exercise and TD analgesics. He shared that these have failed to provide relief in past. Recommended a multimodal approach to pain and discussed the importance of appropriate pain management in his overall health to prevent complications of immobility. Wilian is agreeable to continue oxycodone 5mg q6h PRN in conjunction with PT/OT with the hope that better/more mobility will lessen his need for opiate analgesia. (6) Counseling regarding advanced directives and goals of care: We discussed at length the patient's acute and chronic medical conditions, general prognosis, treatment options, and goals of care. In particular we discussed the expected trajectory of his heart disease and cirrhosis and how jointly they can be difficult to manage and progressively debilitating. Discus sed pt's admission course and HPI and importance of medication compliance for longevity. The Fee's have been for nearly 30y and met in a ballroom dancing class. Wilian shared that since his strokes he struggles with balance and mobility. 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 He shared that he still enjoys walking leon he is able, but now has to drive somewhere to even take a walk due [place]. He shared that poor mobility has "robbed" him of his life. He shared that he most wishes that he could return to some degree of active lifestyle. Wilian shared that he wants to continue to seek life prolonging treatments for his HF, but he is often unable to bear the pain in his knees. Wilian stated that some days the knee pain is so bad that he knows he will be unable to make it to the bathroom so he does not take his diuretics. He shared that he does wish to continue on current course of treatment, but that he is unable to get to the bathroom quickly or frequently enough when he takes diuretics. He feels better pain management will make this possible (see #5). We discussed feasibility of attending rehab after discharge to optimize strength and mobility prior to returning home. Apoorva stated that "he has to go to rehab, he cannot come home like this". Wilian is eager for PT/OT with the hope that better/more mobility will lessen his need for opiate analgesia. We discussed feasibility of using a bedside commode for the days that pain is at it's worst, he is agreeable and shared that they have a bedside commode in storage. Wilian reinforced his desire to remain DNR/DNI but continue all other life prolonging therapies at this time. Apoorva shared that Wilian had completed a living will many years ago, but she cannot find it. We discussed importance of an advanced directive to document Wilian's wishes for HCPOA as well as his wishes to NOT be resuscitated in event of his . Blank form provided to them to review. Plan DNR/DNI, continue all other life prolonging treatments. Wilian is hopeful for rehab to improve mobility. History of Present Illness Reason for Consultation: goals of care Requesting Physician: Gael Frost MD Attending Physician: Gael Frost MD History of Present Illness Mr Monteiro is a 65y male with PMHx significant for chronic right-sided heart failure (EF 65 to 70%, TTE 2024), A-fib on Eliquis, hypertension, history of bioprosthetic AVR/MV repair, streptococcal endocarditis, CVA, VENUS on CPAP, cirrhosis, CRI on Jardiance (baseline creatinine 1.7), BPH with LUTS, chronic anemia (baseline hemoglobin 8-9), bilateral knee arthritis who presented to ED c/o several days of progressive shortness of breath, abdominal distention, weight gain and fluid retention after stopping his diuretic medications against medical advice. Patientreportedly stopped taking home diuretic one week prior due to pain/difficulty with ambulating to bathroom to urinate. Last confinement December 2024 for streptococcal bacteremia secondary to presumptive endocarditis. Patient discharged on cefazolin course. Monthly outpatient therapeutic paracenteses at [facility] following G process excellence manager recommendations since last month. Last paracenteses was last week -5 L ascitic fluid drained. Allergies Allergy/AdvReac Type Severity Reaction Status Date / Time amoxicillin Allergy Intermediate Rash Verified 01/26/25 09:30 cyclobenzaprine AdvReac Intermediate Rash Verified 01/26/25 09:30 Home Medications Medication Instructions Recorded Confirmed Type apixaban 5 mg tablet 5 mg PO QAM 12/05/23 04/20/25 History aspirin 81 mg capsule 81 mg PO QAM 12/05/23 04/20/25 History cholecalciferol (vitamin D3) 125 125 mcg PO DAILY 12/05/23 04/20/25 History mcg (5,000 unit) tablet (Vitamin D3) coenzyme Q10 100 mg capsule 100 mg PO DAILY 12/05/23 04/20/25 History (CoQ-10) magnesium oxide 400 mg (241.3 mg 400 mg PO DAILY #30 tabs 12/12/23 04/20/25 Rx magnesium) tablet empagliflozin 10 mg tablet 10 mg PO DAILY #30 tabs 11/12/24 04/20/25 Rx (Jardiance) allopurinol 100 mg tablet 100 mg PO DAILY 11/28/24 01/26/25 History ammonium lactate 12 % lotion 1 applic topical BID 11/28/24 04/20/25 History metoprolol succinate 100 mg 100 mg PO BID 11/28/24 04/20/25 History tablet,extended release 24 hr potassium chloride 20 mEq 20 meq PO DAILY 01/26/25 01/26/25 History tablet,extended release(part/cryst) allopurinol 100 mg tablet 100 mg PO DAILY 04/20/25 04/20/25 History (Zyloprim) torsemide 20 mg tablet 60 mg PO BID 04/20/25 History Patient History Medical History Atrial fibrillation Cerebellar ataxia (2020) Bilateral cataracts BPH (benign prostatic hyperplasia) Polyuria History of restless legs syndrome Gait instability since stroke, has a balance problem, uses a cane Hx of vertigo Chronic atrial fibrillation no caridoversion, follows with Hannah (12/12/23), takes eliquis Hx of basal cell carcinoma Hx of bacteremia (2019) USHA (acute kidney injury) (12/2023) recently hospitalized at [facility] "to drain fluid from my body" and was given IV lasix, which pt. 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, unsure of cause Cirrhosis of liver Dyspnea on exertion History of asthma Acute on chronic right-sided heart failure History of embolic stroke (2020) loss of balance, MRI showed new emboli in brain, currently has balance problems, no longer follows with neuro - takes eliquis Acute hypoxemic respiratory failure (03/01/20) hx Abnormal LFTs Benign essential hypertension Obstructive sleep apnea cpap with 2L oxygen - compliant Surgical History Hx of cataract extraction left Hx of basal cell carcinoma excision Hx of mitral valve replacement (02/2020) PSH- follows with Hannah at [facility] (12/12/23) Hx of aortic valve replacement (02/2020) PSH History of vasectomy Family History Father Heart disease Hypertension, Onset Age: 50 Kidney disease, Onset Age: 30 Kidney stones as young man Myocardial infarction Passed in 2006 with heart attack age 78 Brother Asthma Prostate cancer, Onset Age: 61 Treated Radiation and hormonal. Cancer younger brother, skin cancer Mother Cancer Skin cancer Brother Cancer skin cancer Denies family history of Ovarian cancer Diabetes Breast cancer Lung cancer Colorectal cancer Stroke Social History Smoking Status: Never smoker Tobacco Type: Cigarettes Second Hand Exposure: No; Do You Dip or Chew Tobacco: No; Hx Alcohol Use: No Hx Substance Use: No Preferred Language: Greek Communication Ability: Effective Communication Ability Comment: [place] Hearing Ability: Hard of Hearing Senior Administrative Services Officer Required: No Beliefs That Will Affect Care: None marital status: Current Living Situation: Alone current occupational status: employed 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 How many Children do You have: 0 How many Children do You have Comment: 1 step child Feels Safe at Home: Yes Safety Concerns: Feels Safe At This Time Childhood Exposure to Second-Hand Smoke: No Seatbelt Use: always Sunscreen Use: Yes Assistive Devices: CPAP, Oxygen - Continuous and Walker Review of Systems Review of Systems: All systems reviewed & are unremarkable except as noted in HPI & below Physical Exam Constitutional: well developed, + morbidly obese, cooperative and comfortable Eyes: PERRL, conjunctivae normal, anicteric sclerae Neck: trachea midline, no thyromegaly Respiratory: normal respiratory effort, lungs clear to auscultation Cardiovascular: Rate/Rhythm: + irregularly irregular Gastrointestinal (Abdomen): soft, obese, BS+ Skin: + erythema (bilateral lower extremities ) Neurologic: PERRL, EOMI, accommodation nl, no face palsy, no dysarthria Psychiatric: A+Ox3, euthymic affect Results & Data Vital Signs (Past 12 Hours) Vital Signs Temp Pulse Pulse Resp BP Pulse Ox O2 Del Method 04/26/25 11:35 36.7 C 101 H 20 125/71 97 Nasal Cannula 04/26/25 08:00 100 H 04/26/25 08:00 Nasal Cannula 04/26/25 08:00 04/26/25 07:32 36.7 C 99 H 20 135/74 98 Nasal Cannula 04/26/25 03:17 36.8 C 101 H 20 129/75 96 Nasal Cannula 04/26/25 02:16 O2 Del Method O2 Flow Rate O2 Flow Rate 04/26/25 11:35 3.5 04/26/25 08:00 04/26/25 08:00 2 04/26/25 08:00 Nasal Cannula 2 04/26/25 07:32 3.5 04/26/25 03:17 3 04/26/25 02:16 Nasal Cannula 3 Laboratory Results Abnormal lab results 04/26/25 Range/Units 09:33 RBC 3.61 L (4.70-6.10) M/uL Hgb 8.9 L (14.0-18.0) g/dL Hct 31.3 L (42.0-52.0) % MCH 24.7 L (25.0-34.0) pg MCHC 28.4 L (32.0-36.0) g/dL RDW Std Deviation 55.8 H (36.4-46.3) fL RDW Coeff of Arely 17.3 H (11.5-14.5) % Lymph # (Auto) 0.53 L (1.20-3.40) K/uL [place] # (Auto) 0.67 H (0.11-0.59) K/uL Chloride 93 L (98-107) mmol/L Carbon Dioxide 41 H* (21-32) mmol/L BUN 35 H (6-23) mg/dl BUN/Creatinine Ratio 25.4 H (10-20) Glucose 144 H (70-99(Fasting)) mg/dl Diagnostic Findings Chest X-Ray 04/19/25 18:41 Clinical History: Chest pain Technique: A frontal view of the chest was obtained Comparison is made to the prior examination dated 12/03/2024 Findings: There is right lower lobe opacity that could be due to pneumonia. There is also suspected pulmonary vascular congestion. The heart is mildly enlarged. There is a prosthetic cardiac valve. Sternal wires are present. No definite pneumothorax is seen. There is a small to moderate sized right pleural effusion. No fracture is noted. No foreign body is seen Impression: 1. Cardiomegaly and pulmonary vascular congestion 2. Possible right lower lobe pneumonia 3. Right pleural effusion ACT 112: Positive. There are findings on this exam that require communication between the performing entity and the patient following Patient Test Result Information Act ([place] ACT 112) guidelines. Electronically signed by Ayo Yee 04-19-2025 7:[address] 04/19/25 22:46 EXAM: CT chest diagnostic wo con CLINICAL HISTORY: pleural effusion, pnx TECHNIQUE: Contiguous axial CT images of the chest were acquired without administration of intravenous contrast. Coronal and sagittal reconstructions were obtained. One of the following dose reduction techniques were utilized for this exam: Automated exposure control, adjustment of the mA and/or kV according to patient size, use of iterative reconstruction. COMPARISON: Correlation with the 04/19/2025 18:30:00 ASP NET SOFTWARE DEVELOPER chest X-ray. FINDINGS: Lungs: No evidence of consolidation focal lesions. No pulmonary nodules or masses are identified. No evidence of interstitial lung disease or emphysema. Moderate right pleural effusion with associated subsegmental compressive atelectasis of the right lower lobe. Trace left pleural effusion. Bibasilar streaky atelectasis and scarring in the right upper lobe. Mediastinum: The mediastinum is normal in size and contour. Multiple small mediastinal lymphadenopathies. Multiple left axillary lymphadenopathies, Ultarsound is needed. There is mild cardiomegaly with mitral and aortic prosthetic valves. Hilar Structures: The hilar structures appear normal without enlargement or abnormality. Atheromatous calcifications of the aorta and coronary arteries. Trachea and Main Bronchi: The trachea and main bronchi are patent without evidence of obstruction or abnormality. Chest Wall: The chest wall is unremarkable with no evidence of soft tissue or bony abnormalities. Median sternotomy wires are seen. Upper Abdomen: [id number] ascites. Liver cirrhosis. Bones: No evidence of fracture or lytic/sclerotic lesions. Moderate thoracic spondylosis. IMPRESSION: Moderate right pleural effusion with associated subsegmental compressive atelectasis of the right lower lobe. Trace left pleural effusion. Bibasilar streaky atelectasis and scarring in the right upper lobe. Mild cardiomegaly. Multiple small mediastinal lymphadenopathies. Multiple left axillary lymphadenopathies, Ultrasound is needed. Moderate thoracic spondylosis. [id number] ascites. Liver cirrhosis. Electronically signed by Cody Rowell 04-20-2025 07:[address] 04/21/25 19:50 Exam(s): CT EXTREMITY RIGHT UPPER Without Contrast EXAM: CT Right Upper Extremity Without Intravenous Contrast CLINICAL HISTORY: Reason for exam: Swelling, heparin. TECHNIQUE: Axial computed tomography images of the right upper extremity without intravenous contrast. CTDI is 6.03 mGy and DLP is 187.1 mGy-cm. Automated exposure control was utilized for the study. A dose lowering technique was utilized adhering to the principles of ALARA. COMPARISON: No relevant prior studies available. FINDINGS: Bones/joints: Aixl-my-yvmbwswp degenerative changes of the 1st carpometacarpal joint. The radius and ulna are intact and normally aligned. Bone mineral density is normal. No acute fracture. Soft tissues: There is severe circumferential subcutaneous edema throughout the entire right forearm. No subcutaneous emphysema, abscess, or foreign body is identified. Vasculature: Moderate diffuse arterial calcification throughout the radial artery. IMPRESSION: There is severe circumferential subcutaneous edema throughout the entire right forearm. No subcutaneous emphysema, abscess, or foreign body is identified. Consider cellulitis. Electronically signed by: Florian Moe MD 04/21/25 23:43 PM Paracentesis Ultrasound 04/22/25 08:30 ULTRASOUND-GUIDED PARACENTESIS CLINICAL HISTORY: Ascites PROCEDURE: Procedure and risks were explained. Informed consent was obtained. A final timeout was completed. The abdomen was prepped and draped in sterile fashion. 1% lidocaine was utilized for skin anesthesia. Utilizing ultrasound guidance, a 5 [place] safety centesis catheter was advanced into the left lower quadrant pocket of ascites. Ultrasound images were obtained. 2.4 L of ascites fluid was removed and discarded. The catheter was removed and Band-Aid applied. The patient tolerated the procedure well. Vital signs will be monitored postprocedure. IMPRESSION: Ultrasound-guided paracentesis as above. Performed, dictated, and signed by Lon Joseph PA-C; to be co-signed by Dr. Taz Grant. Electronically signed by: Taz Grant M.D. 04/22/2025 2:50 PM Medications Administered Current Inpatient Medications Acetaminophen (Acetaminophen 500 Mg Tab) 500 mg PO Q6H PRN PRN Reason: fever/pain Stop: 05/19/25 22:54 Allopurinol (Allopurinol 100 Mg Tab) 100 mg PO DAILY PIPER Stop: 05/20/25 08:59 Last Admin: 04/26/25 08:12 Dose: 100 mg Apixaban (Apixaban 5 Mg Tablet) 5 mg PO BID PIPER Stop: 05/23/25 08:59 Last Admin: 04/26/25 08:14 Dose: 5 mg Aspirin (Aspirin 81 Mg Ectab) 81 mg PO QAM PIPER Stop: 05/22/25 15:29 Last Admin: 04/26/25 08:14 Dose: 81 mg Diclofenac Sodium (Diclofenac Sod 1% Gel 100 Gm Tube) 2 gm EXT Q6H PRN; Protocol PRN Reason: joint pain Stop: 05/20/25 03:21 Doxycycline Hyclate (Doxycycline Hyclate 100 Mg Cap) 100 mg PO BID PIPER Stop: 04/29/25 20:59 Last Admin: 04/26/25 08:12 Dose: 100 mg Finasteride (Finasteride 5 Mg Tab) 5 mg PO QAM PIPER Stop: 05/21/25 08:59 Last Admin: 04/26/25 08:13 Dose: 5 mg Furosemide (Furosemide 40 Mg/4 Ml Vial) 60 mg IV [id number] PIPER Stop: 05/22/25 13:59 Last Admin: 04/26/25 08:11 Dose: 60 mg Hydromorphone HCl (Hydromorphone Inj 0.5 Mg/0.5 Ml Syr) 0.5 mg IV Q6H PRN PRN Reason: Pain Stop: 05/03/25 22:54 Promethazine HCl (Phenergan) 6.25 mg in 50.25 mls @ 201 mls/hr IV Q6H PRN PRN Reason: Nausea And Vomiting Stop: 05/19/25 22:54 Lactic Acid (Ammonium Lactate 12% Lotion 225 Gm Btl) 1 gm EXT BID PIPER Stop: 05/20/25 08:59 Last Admin: 04/26/25 08:13 Dose: 1 gm Lactulose (Lactulose Syrup 20 Gm/30 Ml Udc) 30 gm PO TID [facility] Stop: 05/24/25 13:59 Last Admin: 04/26/25 08:13 Dose: Not Given Metoprolol Succinate (Metoprolol Succ 50mg Ext Rel Tab) 100 mg PO BID [facility] Stop: 05/20/25 08:59 Last Admin: 04/26/25 08:12 Dose: 100 mg Oxycodone HCl (Oxycodone Hcl Ir 5 Mg Tab (Immediate Release)) 5 - 10 mg PO QID PRN PRN Reason: Pain Stop: 05/03/25 22:54 Last Admin: 04/26/25 04:26 Dose: 10 mg Phenazopyridine HCl (Phenazopyridine Hcl 200 Mg Tab) 200 mg PO TID PRN PRN Reason: Bladder pain Stop: 05/24/25 22:34 Last Admin: 04/26/25 02:13 Dose: 200 mg Polyethylene Glycol (Polyethylene (Miralax) 17 Gm Pack) 17 gm PO DAILY PRN PRN Reason: Constipation Stop: 05/21/25 21:02 Last Admin: 04/22/25 08:46 Dose: 17 gm Senna/Docusate Sodium (Docusate Sodium/Senna 50/8.6mg Tab) 1 tab PO QAM [facility] Stop: 05/22/25 08:59 Last Admin: 04/26/25 08:13 Dose: Not Given Tamsulosin HCl (Tamsulosin Hcl 0.4 Mg Cap) 0.4 mg PO HS [facility] Stop: 05/20/25 20:59 Last Admin: 04/25/25 20:47 Dose: 0.4 mg PG Care Time/CCT Total # of Minutes Spent Total Time Spent with Patient: Total time spent is greater than 50% in coordination of care (as documented) at patient's floor/unit and/or counseling patient: Advanced Care Planning 16356 Advanced Care Planning 30 [place] [address] IN/OBS CONSULT LVL 4,60M Patient Type New History Expanded Problem Focused Exam Expanded Problem Focused Medical Decision Making Moderate Complexity Diagnoses Ascites R18.8 Shortness of breath R06.02 Generalized weakness R53.1 Palliative care by specialist Z51.5 Knee pain, chronic M25.569; G89.29 Counseling regarding advanced directives and goals of care Z71.89 Additional Codes Advanced Care Planning - 43283 Advanced Care Planning 30 Min: 08786 Advanced Care Planning 30 Min ([id number])
--- NOTE | 2025-04-26 14:10 | Hospitalist Progress Note ---
Date of Service April 26, 2025 Assessment & Plan (1) Shortness of breath: Plan: 65M with PMH HFpEF, R sided CHF, severe aortic stenosis s/p AVR, cirrhosis, chronic hypoxic resp failure on 2L rest, 4L exertion/qHS, CKD3 BPH, who presents with CHF #Acute on chronic HFpEF #R sided CHF -Secondary to non compliance with diuretic regimen -He was not taking diuretics as he didn't want to keep going to the bathroom to urinate -BNP elevated. CXR and CT chest showing moderate R pleural effusion Has been getting intravenous Lasix 60 mg twice daily and diuresing enough Appreciate cardiology input and recommendation Echo of the heart showed normal LV size, moderate concentric LVH, LVEF 65 to 70%, LA is moderately dilated, RV is moderately dilated, right ventricular systolic function is mildly reduced, there is bioprosthetic aortic valve mild to moderate tricuspid regurgitation and right ventricular systolic pressure is elevated to 40 to 50 mmHg Will monitor PRP Lasix doses have been decreased to 40 mg twice daily by the motor tune up specialist -Cumulative fluid balance is negative 2162 mls Clinically much better and not complaining of any shortness of breath at rest but is still requiring 4 L to maintain saturation Cumulative fluid balance is -4316 mL His furosemide doses have been increased to 60 mg twice daily He has been diuresing enough and will continue current dose of Lasix for now Will continue Lasix 40 mg intravenously twice a day He remains stable and free from any symptoms at rest and still requiring 3.5 L to maintain saturation Cumulative fluid balance is -9662 mL per #Cirrhosis with ongoing ascites and requiring frequent paracentesis -Not compliant with diuretics as above -Gets monthly paracentesis with last para 04/14 -May need another para but last dose of eliquis was 04/19 -Can plan for para on 04/22 if still here and eliquis has been held for 3 days -Of note, he is not on a bowel regimen -No asterixis on exam or confusion -Will start lactulose while hospitalized. He should have 2-3 Loose bowel movemen ts per day He is status post 2.4 L paracentesis today and has been feeling okay following the procedure He will be given lactulose for bowel movement Has not had a bowel movement for the last few days Remains clinically stable to be transferred and awaiting placement Discussed with the patient and they are agreeable to have a palliative care encounter Right forearm swelling and redness Secondary to extravasation of heparin CT showed possible cellulitis but no abscess Has been getting doxycycline for that Clinically much better Knee pain Has significant osteoarthritis mostly on the left knee Has been complaining of increasing pain since last evening Cannot take any NSAIDs and has been getting diclofenac locally Has been on oxycodone as well for pain control Knee pain is better Denies any more pain #Moderate R pleural effusion -Suspect secondary to CHF/cirrhosis -Low suspicion for exudative/parapneumonic effusion -Chronic hypoxic resp failure on 2L rest, 4L exertion. At baseline -Will need repeat imaging once he is on a stable diuretic regimen to ensure it is improving #pAfib -Eliquis held for possible paracentesis -Currently on heparin drip for stroke prophylaxis -Continue metoprolol for rate control Eliquis needs to be on hold for 3 days prior to paracentesis Status post paracentesis and plan to restart Eliquis from tomorrow morning #Lymphadenopathy -Incidentally noted multiple axillary and mediastinal lymphadenopathies -Can obtain US of these as outpatient #BPH -Follow with urology as OP. reviewed note from 01/26/25 -Will start flomax and finasteride to help decrease urinary frequency while on diuretics on discharge -Continue echavarria for now -Voiding trial prior to discharge. #Anemia -Chronic normocytic anemia -At baseline -No bleeding -Check Fe panel, B12, folate #CKD3 -At baseline -Avoid nephrotoxic agents if possible -Watch closely while on IV diuretics I spent a total of 33 minutes coordinating, documenting, and providing care for this patient excluding time spent in the performance of separately billed services. This included personally reviewing all current laboratories and imaging studies, medical reconciliation, outpatient chart review and discussion with specialists Admission and Anticipated Discharge Date Admission Date: April 19, 2025 Subjective 04/21/2025 Patient was seen and examined in telemetry unit He has been complaining of bilateral knee pain since last night Denies any other significant symptoms except weakness Denies any nausea and/or vomiting 04/22/2025 The patient was seen and examined in telemetry unit He has had some extravasation of heparin in right forearm last night has been feeling much better Denies any significant symptoms and he will have paracentesis today 04/23/2025 Patient was seen and examined in telemetry unit He has been feeling better and denies any significant symptoms except weakness He has been waiting for physical therapy and appropriate disposition 04/24/2025 The patient was seen and examined in telemetry unit He has been stable and complains to have thirst 04/25/2025 The patient was seen and examined in telemetry unit He has been much better with profuse diuresis Has been saturating normally on room air Weakness seems to be improving and edema is much improved 04/26/2025 The patient was seen and examined in telemetry unit in presence of the He remains weak and lethargic otherwise denies any other significant symptoms Still diuresing enough with current dose of Lasix Awaiting placement Will ask for a palliative care evaluation while in the hospital Review of Systems Review of Systems: All systems reviewed and are unremarkable except as noted below Physical Exam Physical Exam: Lying in bed with distress due to generalized discomfort and bilateral knee pain Constitutional: well developed, well nourished, + ill appearing and + obese Eyes: PERRL, conjunctivae normal, anicteric sclerae ENMT: external ear and nose normal, oropharynx normal Neck: trachea midline, no thyromegaly Respiratory: no respiratory distress Auscultation: + diminished lung sounds and + crackles (Minimal bibasilar crackles ) Cardiovascular: Rate/Rhythm: regular rate and regular rhythm; not tachycardic Heart Sounds: normal S1 and normal S2; no murmur Extremities: + edema ( 1+ edema bilaterally with chronic skin changes) Gastrointestinal (Abdomen): Inspection/Auscultation: normal bowel sounds; abdomen not distended Percussion/Palpation: abdomen soft; abdomen nontender Musculoskeletal: Knee: + knee abnormal to inspection ( Swelling of the both knee joints), + effusion ( minimal effusion clinically) and + skin erythema ( erythema and swelling involving the right forearm and adjoining area elbo) Neurologic: normal touch/pain/proprioception and moves all extremities; no focal motor deficits Lymphatic: no cervical or axillary lymphadenopathy Results & Data Results & Data Vital Signs (Past 12 Hours) Vital Signs Temp Pulse Pulse Resp BP Pulse Ox O2 Del Method 04/26/25 11:35 36.7 C 101 H 20 125/71 97 Nasal Cannula 04/26/25 08:00 100 H 04/26/25 08:00 Nasal Cannula 04/26/25 08:00 04/26/25 07:32 36.7 C 99 H 20 135/74 98 Nasal Cannula 04/26/25 03:17 36.8 C 101 H 20 129/75 96 Nasal Cannula 04/26/25 02:16 O2 Del Method O2 Flow Rate O2 Flow Rate 04/26/25 11:35 3.5 04/26/25 08:00 04/26/25 08:00 2 04/26/25 08:00 Nasal Cannula 2 04/26/25 07:32 3.5 04/26/25 03:17 3 04/26/25 02:16 Nasal Cannula 3 Laboratory Results Short CBC 04/26/25 Range/Units 09:33 WBC 5.15 (4.8-10.8) K/ul Hgb 8.9 L (14.0-18.0) g/dL Hct 31.3 L (42.0-52.0) % Plt Count 208 (130-400) K/uL BMP 04/26/25 09:33 Sodium 141 Potassium 3.6 Chloride 93 L Carbon Dioxide 41 H* BUN 35 H Creatinine 1.38 Glucose 144 H Calcium 9.1 Medications Administered Current Inpatient Medications Acetaminophen (Acetaminophen 500 Mg Tab) 500 mg PO Q6H PRN PRN Reason: fever/pain Stop: 05/19/25 22:54 Allopurinol (Allopurinol 100 Mg Tab) 100 mg PO DAILY [facility] Stop: 05/20/25 08:59 Last Admin: 04/26/25 08:12 Dose: 100 mg Apixaban (Apixaban 5 Mg Tablet) 5 mg PO BID [facility] Stop: 05/23/25 08:59 Last Admin: 04/26/25 08:14 Dose: 5 mg Aspirin (Aspirin 81 Mg Ectab) 81 mg PO QAM [facility] Stop: 05/22/25 15:29 Last Admin: 04/26/25 08:14 Dose: 81 mg Diclofenac Sodium (Diclofenac Sod 1% Gel 100 Gm Tube) 2 gm EXT Q6H PRN; Protocol PRN Reason: joint pain Stop: 05/20/25 03:21 Doxycycline Hyclate (Doxycycline Hyclate 100 Mg Cap) 100 mg PO BID [facility] Stop: 04/29/25 20:59 Last Admin: 04/26/25 08:12 Dose: 100 mg Finasteride (Finasteride 5 Mg Tab) 5 mg PO QAM [facility] Stop: 05/21/25 08:59 Last Admin: 04/26/25 08:13 Dose: 5 mg Furosemide (Furosemide 40 Mg/4 Ml Vial) 60 mg IV [id number] [facility] Stop: 05/22/25 13:59 Last Admin: 04/26/25 13:35 Dose: 60 mg Hydromorphone HCl (Hydromorphone Inj 0.5 Mg/0.5 Ml Syr) 0.5 mg IV Q6H PRN PRN Reason: Pain Stop: 05/03/25 22:54 Promethazine HCl (Phenergan) 6.25 mg in 50.25 mls @ 201 mls/hr IV Q6H PRN PRN Reason: Nausea And Vomiting Stop: 05/19/25 22:54 Lactic Acid (Ammonium Lactate 12% Lotion 225 Gm Btl) 1 gm EXT BID [facility] Stop: 05/20/25 08:59 Last Admin: 04/26/25 08:13 Dose: 1 gm Lactulose (Lactulose Syrup 20 Gm/30 Ml Udc) 30 gm PO TID [facility] Stop: 05/24/25 13:59 Last Admin: 04/26/25 13:23 Dose: Not Given Metoprolol Succinate (Metoprolol Succ 50mg Ext Rel Tab) 100 mg PO BID [facility] Stop: 05/20/25 08:59 Last Admin: 04/26/25 08:12 Dose: 100 mg Oxycodone HCl (Oxycodone Hcl Ir 5 Mg Tab (Immediate Release)) 5 - 10 mg PO QID PRN PRN Reason: Pain Stop: 05/03/25 22:54 Last Admin: 04/26/25 13:31 Dose: 10 mg Phenazopyridine HCl (Phenazopyridine Hcl 200 Mg Tab) 200 mg PO TID PRN PRN Reason: Bladder pain Stop: 05/24/25 22:34 Last Admin: 04/26/25 13:22 Dose: 200 mg Polyethylene Glycol (Polyethylene (Miralax) 17 Gm Pack) 17 gm PO DAILY PRN PRN Reason: Constipation Stop: 05/21/25 21:02 Last Admin: 04/22/25 08:46 Dose: 17 gm Senna/Docusate Sodium (Docusate Sodium/Senna 50/8.6mg Tab) 1 tab PO QAM [facility] Stop: 05/22/25 08:59 Last Admin: 04/26/25 08:13 Dose: Not Given Tamsulosin HCl (Tamsulosin Hcl 0.4 Mg Cap) 0.4 mg PO HS [facility] Stop: 05/20/25 20:59 Last Admin: 04/25/25 20:47 Dose: 0.4 mg [employer] Apprentice palliative consider palliative consultation done but not used
--- NOTE | 2025-04-26 14:39 | Cardiology Progress Note ---
Date of Service April 26, 2025 Assessment & Plan (1) Acute on chronic diastolic heart failure with preserved ejection fraction: (2) Acute on chronic respiratory failure with hypoxia and hypercapnia: (3) Chronic atrial flutter: (4) S/P MVR (mitral valve replacement): (5) S/P AVR (aortic valve replacement): (6) Ascites: Plan Patient is a 65 year old male with complex history of HFpEF, right heart failure, chronic respiratory failure, history of AVR and MVR with history of endocarditis, recurrent ascites, and non compliance with diuretics who presented to [facility] with worsening SOB/fluid retention consistent with acute on chronic HFpEF and acute right sided HF. Patient's at bedside states that patient avoids the evening dose of diuretics at home because he then has to go to the bathroom to urinate which is uncomfortable du to pain in his knees Acute HFpEF Chronic Atrial flutter Right Heart failure Ascites s/p Bioprosthetic MVR S/P Bioprosthetic AVR DJD Recommendations: correct and f/u electrolytes f/u renal function continue diuresis continue anticoagulation -> Eliquis GDMT for HFpEF as tolerated avoid hypovolemia keep patient euvolemic DVT prophylaxis keep LE elevated when sitting 1.5 L / 24 hr fluid restriction strict I&Os salt restriction Goal serum K> 4.0 and goal serum mag > 2.0 history of hyperkalemia, avoid use of spironolactone. Admission and Anticipated Discharge Date Admission Date: April 19, 2025 Supervising Physician Co-Signing Physician Notes I have reviewed the advanced practitioner's documentation on the date of service referenced in note, and I agree with, and take responsibility for the plan of care. I spent a total of [15] minutes coordinating, documenting, and providing care for this patient excluding time spent in the performance of separately billed services or time spent by another provider. Subjective 04/21/2025 Patient on exam is lying in bed in NAD; no c/o cp, sob, palpitations, dizziness, LOC, cough, fever, nausea, vomiting, abdominal pain, urinary or bowel problem problems states that leg swelling has significantly improved Review of Systems Review of Systems: as per hpi Physical Exam Cardiovascular: Rate/Rhythm: + irregularly irregular Heart Sounds: + murmur (+1/6 systolic mumur) Gastrointestinal (Abdomen): soft, obese, BS+ Skin: + erythema (bilateral lower extremities ) Neurologic: PERRL, EOMI, accommodation nl, no face palsy, no dysarthria Psychiatric: A+Ox3, euthymic affect Results & Data Vital Signs (Past 12 Hours) Vital Signs Vital Signs Temp 36.7 C 04/26/25 11:35 Pulse 101 H 04/26/25 14:43 Resp 20 04/26/25 11:35 BP 125/71 04/26/25 11:35 Pulse Ox 97 04/26/25 11:35 O2 Del Method Nasal Cannula 04/26/25 11:35 O2 Flow Rate 3.5 04/26/25 11:35 Intake & Output 04/25/25 04/26/25 04/26/25 18:59 06:59 18:59 Intake Total 860 / 1360 500 / 1360 910 / 910 Output Total 700 / 1750 1050 / 1750 1200 / 1200 Balance 160 / -390 -550 / -390 -290 / -290 Weight 108 kg Intake: Oral 860 / 1360 500 / 1360 910 / 910 Output: Urine Amount (Catheter) 700 / 1750 1050 / 1750 1200 / 1200 Lara/Indwelling 700 / 1750 1050 / 1750 1200 / 1200 Other: Weight Measurement Method Built in [facility] Temp Pulse Pulse Resp BP Pulse Ox O2 Del Method 04/26/25 11:35 36.7 C 101 H 20 125/71 97 Nasal Cannula 04/26/25 08:00 100 H 04/26/25 08:00 Nasal Cannula 04/26/25 08:00 04/26/25 07:32 36.7 C 99 H 20 135/74 98 Nasal Cannula 04/26/25 03:17 36.8 C 101 H 20 129/75 96 Nasal Cannula O2 Del Method O2 Flow Rate O2 Flow Rate 04/26/25 11:35 3.5 04/26/25 08:00 04/26/25 08:00 2 04/26/25 08:00 Nasal Cannula 2 04/26/25 07:32 3.5 04/26/25 03:17 3 Laboratory Results Laboratory Results WBC 5.15 K/ul (4.8-10.8) 04/26/25 09:33 RBC 3.61 M/uL (4.70-6.10) L 04/26/25 09:33 Hgb 8.9 g/dL (14.0-18.0) L 04/26/25 09:33 Hct 31.3 % (42.0-52.0) L 04/26/25 09:33 MCV 86.7 fL (80.0-100.0) 04/26/25 09:33 MCH 24.7 pg (25.0-34.0) L 04/26/25 09:33 MCHC 28.4 g/dL (32.0-36.0) L 04/26/25 09:33 RDW Std Deviation 55.8 fL (36.4-46.3) H 04/26/25 09:33 RDW Coeff of Arely 17.3 % (11.5-14.5) H 04/26/25 09:33 Plt Count 208 K/uL (130-400) 04/26/25 09: MPV 10.5 fL (9.4-12.4) 04/26/25 09:33 Immature Gran % (Auto) 0.8 % 04/26/25 09:33 Neut % (Auto) 69.7 % 04/26/25 09:33 Lymph % (Auto) 10.3 % 04/26/25 09:33 Antelope % (Auto) 13.0 % 04/26/25 09:33 Eos % (Auto) 6.0 % 04/26/25 09:33 Baso % (Auto) 0.2 % 04/26/25 09:33 Neut # (Auto) 3.59 K/uL (1.40-6.50) 04/26/25 09:33 Lymph # (Auto) 0.53 K/uL (1.20-3.40) L 04/26/25 09:33 Antelope # (Auto) 0.67 K/uL (0.11-0.59) H 04/26/25 09:33 Eos # (Auto) 0.31 K/uL (0.00-0.50) 04/26/25 09:33 Baso # (Auto) 0.01 K/uL (0.00-0.20) 04/26/25 09:33 Immature Gran # (Auto) 0.04 K/uL (0.01-0.20) 04/26/25 09:33 PT 11.4 Seconds (9.0-12.0) 04/19/25 19:05 INR 1.1 (0.9-1.1) 04/19/25 19:05 Heparin Anti-Xa, Unfract 0.10 IU/ml (0.3-0.7) L 04/21/25 14:09 Sodium 141 mmol/L (136-145) 04/26/25 09:33 Potassium 3.6 mmol/L (3.5-5.1) 04/26/25 09:33 Chloride 93 mmol/L (98-107) L 04/26/25 09:33 Carbon Dioxide 41 mmol/L (21-32) H* 04/26/25 09:33 Anion Gap 7 (3-11) 04/26/25 09:33 BUN 35 mg/dl (6-23) H 04/26/25 09:33 Creatinine 1.38 mg/dl (0.6-1.4) 04/26/25 09:33 Est Cr Clr Drug Dosing 62.7 ml/min 04/26/25 09:33 eGFR 56.40 04/26/25 09:33 BUN/Creatinine Ratio 25.4 (10-20) H 04/26/25 09:33 Glucose 144 mg/dl (70-99(Fasting)) H 04/26/25 09:33 Calcium 9.1 mg/dl (8.6-10.3) 04/26/25 09:33 Phosphorus 3.2 mg/dl (2.5-4.9) 04/25/25 06:20 Magnesium 1.7 mg/dl (1.7-2.4) 04/26/25 09:33 Iron 21 mcg/dl (35-175) L 04/22/25 06:24 Unsaturated IBC 309 mcg/dl (155-355) 04/22/25 06:24 Total Bilirubin 0.5 mg/dl (0.2-1.0) 04/20/25 07:25 Direct Bilirubin 0.2 mg/dl (0-0.2) 04/19/25 18:57 AST 15 U/L (13-39) 04/20/25 07:25 ALT 8 U/L (7-52) 04/20/25 07:25 Alkaline Phosphatase 90 U/L (34-104) 04/20/25 07:25 Troponin I High Sens 17.5 pg/ml (0-20) 04/19/25 18:57 B-Natriuretic Peptide 1339 pg/ml (0-100) H 04/19/25 18:57 Total Protein 6.9 gm/dl (6.0-8.3) 04/20/25 07:25 Albumin 3.7 gm/dl (3.4-5.0) 04/20/25 07:25 Globulin 3.2 gm/dl (2.5-4.0) 04/20/25 07:25 Albumin/Globulin Ratio 1.2 (0.9-2) 04/20/25 07:25 Lipase 12 U/L (11-82) 04/19/25 18:57 Vitamin B12 298 pg/ml (180-914) 04/22/25 06:24 Folate 13.50 ng/ml (>5.38) 04/22/25 06:24 TSH 5.763 uIu/ml (0.300-4.500) H 04/20/25 07:25 Free T4 0.88 ng/dl (0.61-1.60) 04/20/25 07:25 SARS-CoV-2 (PCR) NEGATIVE (Negative) 04/19/25 21:57 Influenza Type A (PCR) Negative (Neg) 04/19/25 21:57 Influenza Type B (PCR) Negative (Neg) 04/19/25 21:57 RSV (RT-PCR) Negative (Neg) 04/19/25 21:57 Blood Type O Positive 04/21/25 20:05 Antibody Screen NEGATIVE 04/21/25 20:05 Impressions Chest X-Ray 04/19/25 18:41 Clinical History: Chest pain Technique: A frontal view of the chest was obtained Comparison is made to the prior examination dated 12/03/2024 Findings: There is right lower lobe opacity that could be due to pneumonia. There is also suspected pulmonary vascular congestion. The heart is mildly enlarged. There is a prosthetic cardiac valve. Sternal wires are present. No definite pneumothorax is seen. There is a small to moderate sized right pleural effusion. No fracture is noted. No foreign body is seen Impression: 1. Cardiomegaly and pulmonary vascular congestion 2. Possible right lower lobe pneumonia 3. Right pleural effusion ACT 112: Positive. There are findings on this exam that require communication between the performing entity and the patient following Patient Test Result Information Act ([place] ACT 112) guidelines. Electronically signed by Ayo Yee 04-19-2025 7:[address] 04/19/25 22:46 EXAM: CT chest diagnostic wo con CLINICAL HISTORY: pleural effusion, pnx TECHNIQUE: Contiguous axial CT images of the chest were acquired without administration of intravenous contrast. Coronal and sagittal reconstructions were obtained. One of the following dose reduction techniques were utilized for this exam: Automated exposure control, adjustment of the mA and/or kV according to patient size, use of iterative reconstruction. COMPARISON: Correlation with the 04/19/2025 18:30:00 [employer] DEV[employer] chest X-ray. FINDINGS: Lungs: No evidence of consolidation focal lesions. No pulmonary nodules or masses are identified. No evidence of interstitial lung disease or emphysema. Moderate right pleural effusion with associated subsegmental compressive atelectasis of the right lower lobe. Trace left pleural effusion. Bibasilar streaky atelectasis and scarring in the right upper lobe. Mediastinum: The mediastinum is normal in size and contour. Multiple small mediastinal lymphadenopathies. Multiple left axillary lymphadenopathies, Ultarsound is needed. There is mild cardiomegaly with mitral and aortic prosthetic valves. Hilar Structures: The hilar structures appear normal without enlargement or abnormality. Atheromatous calcifications of the aorta and coronary arteries. Trachea and Main Bronchi: The trachea and main bronchi are patent without evidence of obstruction or abnormality. Chest Wall: The chest wall is unremarkable with no evidence of soft tissue or bony abnormalities. Median sternotomy wires are seen. Upper Abdomen: Fenx-wh-lkkufabw ascites. Liver cirrhosis. Bones: No evidence of fracture or lytic/sclerotic lesions. Moderate thoracic spondylosis. IMPRESSION: Moderate right pleural effusion with associated subsegmental compressive atelectasis of the right lower lobe. Trace left pleural effusion. Bibasilar streaky atelectasis and scarring in the right upper lobe. Mild cardiomegaly. Multiple small mediastinal lymphadenopathies. Multiple left axillary lymphadenopathies, Ultrasound is needed. Moderate thoracic spondylosis. Qkdd-jf-kfzkreer ascites. Liver cirrhosis. Electronically signed by Cody Rowell 04-20-2025 07:[address] 04/21/25 19:50 Exam(s): CT EXTREMITY RIGHT UPPER Without Contrast EXAM: CT Right Upper Extremity Without Intravenous Contrast CLINICAL HISTORY: Reason for exam: Swelling, heparin. TECHNIQUE: Axial computed tomography images of the right upper extremity without intravenous contrast. CTDI is 6.03 mGy and DLP is 187.1 mGy-cm. Automated exposure control was utilized for the study. A dose lowering technique was utilized adhering to the principles of ALARA. COMPARISON: No relevant prior studies available. FINDINGS: Bones/joints: Xdjm-ls-kprhsoen degenerative changes of the 1st carpometacarpal joint. The radius and ulna are intact and normally aligned. Bone mineral density is normal. No acute fracture. Soft tissues: There is severe circumferential subcutaneous edema throughout the entire right forearm. No subcutaneous emphysema, abscess, or foreign body is identified. Vasculature: Moderate diffuse arterial calcification throughout the radial artery. IMPRESSION: There is severe circumferential subcutaneous edema throughout the entire right forearm. No subcutaneous emphysema, abscess, or foreign body is identified. Consider cellulitis. Electronically signed by: Florian Moe MD 04/21/25 23:43 PM Paracentesis Ultrasound 04/22/25 08:30 ULTRASOUND-GUIDED PARACENTESIS CLINICAL HISTORY: Ascites PROCEDURE: Procedure and risks were explained. Informed consent was obtained. A final timeout was completed. The abdomen was prepped and draped in sterile fashion. 1% lidocaine was utilized for skin anesthesia. Utilizing ultrasound guidance, a 5 [place] safety centesis catheter was advanced into the left lower quadrant pocket of ascites. Ultrasound images were obtained. 2.4 L of ascites fluid was removed and discarded. The catheter was removed and Band-Aid applied. The patient tolerated the procedure well. Vital signs will be monitored postprocedure. IMPRESSION: Ultrasound-guided paracentesis as above. Performed, dictated, and signed by Lon Joseph PA-C; to be co-signed by Dr. Taz Grant. Electronically signed by: Taz Grant M.D. 04/22/2025 2:50 PM Diagnostic Findings CBC 04/26/25 Range/Units 09:33 WBC 5.15 (4.8-10.8) K/ul RBC 3.61 L (4.70-6.10) M/uL Hgb 8.9 L (14.0-18.0) g/dL Hct 31.3 L (42.0-52.0) % Plt Count 208 (130-400) K/uL Neut # (Auto) 3.59 (1.40-6.50) K/uL Lymph # (Auto) 0.53 L (1.20-3.40) K/uL Antelope # (Auto) 0.67 H (0.11-0.59) K/uL Eos # (Auto) 0.31 (0.00-0.50) K/uL Baso # (Auto) 0.01 (0.00-0.20) K/uL Comprehensive Metabolic Panel 04/26/25 Range/Units 09:33 Sodium 141 (136-145) mmol/L Potassium 3.6 (3.5-5.1) mmol/L Chloride 93 L (98-107) mmol/L Carbon Dioxide 41 H* (21-32) mmol/L BUN 35 H (6-23) mg/dl Creatinine 1.38 (0.6-1.4) mg/dl Glucose 144 H (70-99(Fasting)) mg/dl Calcium 9.1 (8.6-10.3) mg/dl Intake and Output 04/25/25 04/26/25 04/26/25 22:59 06:59 14:59 Intake Total 350 / 1360 150 / 1360 910 / 910 Output Total 800 / 1750 250 / 1750 1200 / 1200 Balance -450 / -390 -100 / -390 -290 / -290 Intake: Oral 350 / 1360 150 / 1360 910 / 910 Output: Urine Amount (Catheter) 800 / 1750 250 / 1750 1200 / 1200 Lara/Indwelling 800 / 1750 250 / 1750 1200 / 1200 Other: Weight 108 kg Weight Measurement Method Built in [facility] Medications Administered Home Medications Medication Instructions Recorded Confirmed Last Taken apixaban 5 mg tablet 5 mg PO QAM 12/05/23 04/20/25 11/28/24 aspirin 81 mg capsule 81 mg PO QAM 12/05/23 04/20/25 11/28/24 cholecalciferol (vitamin D3) 125 125 mcg PO DAILY 12/05/23 04/20/25 11/28/24 mcg (5,000 unit) tablet (Vitamin D3) coenzyme Q10 100 mg capsule 100 mg PO DAILY 12/05/23 04/20/25 11/28/24 (CoQ-10) magnesium oxide 400 mg (241.3 mg 400 mg PO DAILY #30 tabs 12/12/23 04/20/25 11/28/24 magnesium) tablet empagliflozin 10 mg tablet 10 mg PO DAILY #30 tabs 11/12/24 04/20/25 11/28/24 (Jardiance) allopurinol 100 mg tablet 100 mg PO DAILY 11/28/24 01/26/25 11/28/24 ammonium lactate 12 % lotion 1 applic topical BID 11/28/24 04/20/25 11/28/24 metoprolol succinate 100 mg 100 mg PO BID 11/28/24 04/20/25 11/28/24 tablet,extended release 24 hr potassium chloride 20 mEq 20 meq PO DAILY 01/26/25 01/26/25 Unknown tablet,extended release(part/cryst) allopurinol 100 mg tablet 100 mg PO DAILY 04/20/25 04/20/25 Unknown (Zyloprim) torsemide 20 mg tablet 60 mg PO BID 04/20/25 Unknown Active Medications Generic Name Dose Route Start Last Admin Trade Name Freq PRN Reason Stop Dose Admin Allopurinol 100 mg 04/20/25 09:00 04/26/25 08:12 Allopurinol 100 Mg Tab PO 05/20/25 08:59 100 mg DAILY PIPER Administration Apixaban 5 mg 04/23/25 09:00 04/26/25 08:14 Apixaban 5 Mg Tablet PO 05/23/25 08:59 5 mg BID PIPER Administration Aspirin 81 mg 04/22/25 15:30 04/26/25 08:14 Aspirin 81 Mg Ectab PO 05/22/25 15:29 81 mg QAM PIPER Administration Doxycycline Hyclate 100 mg 04/22/25 21:00 04/26/25 08:12 Doxycycline Hyclate 100 Mg Cap PO 04/29/25 20:59 100 mg BID PIPER Administration Finasteride 5 mg 04/21/25 09:00 04/26/25 08:13 Finasteride 5 Mg Tab PO 05/21/25 08:59 5 mg QAM PIPER Administration Furosemide 60 mg 04/22/25 14:00 04/26/25 13:35 Furosemide 40 Mg/4 Ml Vial IV 05/22/25 13:59 60 mg [id number] PIPER Administration Lactic Acid 1 gm 04/20/25 09:00 04/26/25 08:13 Ammonium Lactate 12% Lotion 225 Gm Btl EXT 05/20/25 08:59 1 gm BID PIPER Administration Lactulose 30 gm 04/24/25 14:00 04/26/25 13:23 Lactulose Syrup 20 Gm/30 Ml Udc PO 05/24/25 13:59 Not Given TID PIPER Metoprolol Succinate 100 mg 04/20/25 09:00 04/26/25 08:12 Metoprolol Succ 50mg Ext Rel Tab PO 05/20/25 08:59 100 mg BID PIPER Administration Oxycodone HCl 5 - 10 mg 04/19/25 22:55 04/26/25 13:31 Oxycodone Hcl Ir 5 Mg Tab (Immediate Release) PO 05/03/25 22:54 10 mg QID PRN Administration Pain Phenazopyridine HCl 200 mg 04/24/25 22:35 04/26/25 13:22 Phenazopyridine Hcl 200 Mg Tab PO 05/24/25 22:34 200 mg TID PRN Administration Bladder pain Polyethylene Glycol 17 gm 04/21/25 21:03 04/22/25 08:46 Polyethylene (Miralax) 17 Gm Pack PO 05/21/25 21:02 17 gm DAILY PRN Administration Constipation Senna/Docusate Sodium 1 tab 04/22/25 09:00 04/26/25 08:13 Docusate Sodium/Senna 50/8.6mg Tab PO 05/22/25 08:59 Not Given QAM PIPER Tamsulosin HCl 0.4 mg 04/20/25 21:00 04/25/25 20:47 Tamsulosin Hcl 0.4 Mg Cap PO 05/20/25 20:59 0.4 mg HS PIPER Administration PG Care Time/CCT Total # of Minutes Spent Total Time Spent with Patient: Total time spent is greater than 50% in coordination of care (as documented) at patient's floor/unit and/or counseling patient: Coding Level of Care Code 34999 SUB INP/OBS CARE 3/50MIN Diagnoses Acute on chronic diastolic heart failure with preserved ejection fraction I50.33 Acute on chronic respiratory failure with hypoxia and hypercapnia J96.21; J96.22 Chronic atrial flutter I48.92 S/P MVR (mitral valve replacement) Z95.2 S/P AVR (aortic valve replacement) Z95.2 Ascites R18.8
[2025-04-26] MEDS: LACTULOSE SYRUP 20 GM/30 ML UDC PO ONE (21:17)
[2025-04-27 06:50] LABS: Hematocrit (blood only) 28.0 % (42.0-52.0); Hemoglobin 8.1 g/dL (14.0-18.0); Immature Granulocytes # (auto) 0.02 K/uL (0.01-0.20); Immature Granulocytes % (auto) 0.4 %; Mean Corpuscular Hemoglobin 25.1 pg (25.0-34.0); Mean Corpuscular Volume 86.7 fL (80.0-100.0); Platelet Count 191 K/uL (130-400); RDW Standard Deviation 55.0 fL (36.4-46.3); Red Blood Count 3.23 M/uL (4.70-6.10); White Blood Count 4.68 K/ul (4.8-10.8)
[2025-04-27 07:18] LABS: Anion Gap 7.0 (3-11); Blood Urea Nitrogen 40.0 mg/dl (6-23); Calcium 8.8 mg/dl (8.6-10.3); Carbon Dioxide 43.0 mmol/L (21-32); Chloride 93.0 mmol/L (98-107); Creatinine Clr Calc Pharmacy 57.4 ml/min; Glucose 96.0 mg/dl (70-99(Fasting)); Potassium 3.2 mmol/L (3.5-5.1); Sodium 143.0 mmol/L (136-145)
--- NOTE | 2025-04-27 14:53 | Hospitalist Progress Note ---
Date of Service April 27, 2025 Assessment & Plan (1) Shortness of breath: Plan: 65M with PMH HFpEF, R sided CHF, severe aortic stenosis s/p AVR, cirrhosis, chronic hypoxic resp failure on 2L rest, 4L exertion/qHS, CKD3 BPH, who presents with CHF #Acute on chronic HFpEF #R sided CHF -Secondary to non compliance with diuretic regimen -He was not taking diuretics as he didn't want to keep going to the bathroom to urinate -BNP elevated. CXR and CT chest showing moderate R pleural effusion Has been getting intravenous Lasix 60 mg twice daily and diuresing enough Appreciate cardiology input and recommendation Echo of the heart showed normal LV size, moderate concentric LVH, LVEF 65 to 70%, LA is moderately dilated, RV is moderately dilated, right ventricular systolic function is mildly reduced, there is bioprosthetic aortic valve mild to moderate tricuspid regurgitation and right ventricular systolic pressure is elevated to 40 to 50 mmHg Will monitor PRP Lasix doses have been decreased to 40 mg twice daily by the shirt maker -Cumulative fluid balance is negative 2162 mls Clinically much better and not complaining of any shortness of breath at rest but is still requiring 4 L to maintain saturation Cumulative fluid balance is -4316 mL His furosemide doses have been increased to 60 mg twice daily He has been diuresing enough and will continue current dose of Lasix for now Will continue Lasix 40 mg intravenously twice a day He remains stable and free from any symptoms at rest and still requiring 3.5 L to maintain saturation Cumulative fluid balance is -9662 mL per Remains medically stable without any significant symptoms and so far there is -11,097 mL of fluid Awaiting placement to go to [facility] #Cirrhosis with ongoing ascites and requiring frequent paracentesis -Not compliant with diuretics as above -Gets monthly paracentesis with last para 04/14 -May need another para but last dose of eliquis was 04/19 -Can plan for para on 04/22 if still here and eliquis has been held for 3 days -Of note, he is not on a bowel regimen -No asterixis on exam or confusion -Will start lactulose while hospitalized. He should have 2-3 Loose bowel movements per day He is status post 2.4 L paracentesis today and has been feeling okay following the procedure He will be given lactulose for bowel movement Has not had a bowel movement for the last few days Remains clinically stable to be transferred and awaiting placement Will need ongoing frequent paracentesis as an outpatient Palliative care encounter Appreciate palliative care input and recommendation DNR/DNI and continue current management. Right forearm swelling and redness Secondary to extravasation of heparin CT showed possible cellulitis but no abscess Has been getting doxycycline for that Clinically much better Knee pain Has significant osteoarthritis mostly on the left knee Has been complaining of increasing pain since last evening Cannot take any NSAIDs and has been getting diclofenac locally Has been on oxycodone as well for pain control Knee pain is better Denies any more pain #Moderate R pleural effusion -Suspect secondary to CHF/cirrhosis -Low suspicion for exudative/parapneumonic effusion -Chronic hypoxic resp failure on 2L rest, 4L exertion. At baseline -Will need repeat imaging once he is on a stable diuretic regimen to ensure it is improving #pAfib -Eliquis held for possible paracentesis -Currently on heparin drip for stroke prophylaxis -Continue metoprolol for rate control Eliquis needs to be on hold for 3 days prior to paracentesis Status post paracentesis and plan to restart Eliquis from tomorrow morning #Lymphadenopathy -Incidentally noted multiple axillary and mediastinal lymphadenopathies -Can obtain US of these as outpatient #BPH -Follow with urology as OP. reviewed note from 01/26/25 -Will start flomax and finasteride to help decrease urinary frequency while on diuretics on discharge -Continue echavarria for now -Voiding trial prior to discharge. #Anemia -Chronic normocytic anemia -At baseline -No bleeding -Check Fe panel, B12, folate #CKD3 -At baseline -Avoid nephrotoxic agents if possible -Watch closely while on IV diuretics I spent a total of 33 minutes coordinating, documenting, and providing care for this patient excluding time spent in the performance of separately billed services. This included personally reviewing all current laboratories and imaging studies, medical reconciliation, outpatient chart review and discussion with specialists Admission and Anticipated Discharge Date Admission Date: April 19, 2025 Subjective 04/21/2025 Patient was seen and examined in telemetry unit He has been complaining of bilateral knee pain since last night Denies any other significant symptoms except weakness Denies any nausea and/or vomiting 04/22/2025 The patient was seen and examined in telemetry unit He has had some extravasation of heparin in right forearm last night has been feeling much better Denies any significant symptoms and he will have paracentesis today 04/23/2025 Patient was seen and examined in telemetry unit He has been feeling better and denies any significant symptoms except weakness He has been waiting for physical therapy and appropriate disposition 04/24/2025 The patient was seen and examined in telemetry unit He has been stable and complains to have thirst 04/25/2025 The patient was seen and examined in telemetry unit He has been much better with profuse diuresis Has been saturating normally on room air Weakness seems to be improving and edema is much improved 04/26/2025 The patient was seen and examined in telemetry unit in presence of the He remains weak and lethargic otherwise denies any other significant symptoms Still diuresing enough with current dose of Lasix Awaiting placement Will ask for a palliative care evaluation while in the hospital 04/27/2025 Patient was seen and examined in telemetry unit He has been stable denies any significant symptoms Has been having enough diuresis with decreasing swelling in the legs Minimal nausea, no other significant symptoms Review of Systems Review of Systems: All systems reviewed and are unremarkable except as noted below Physical Exam Physical Exam: Lying in bed with distress due to generalized discomfort and bilateral knee pain Constitutional: well developed, well nourished, + ill appearing and + obese Eyes: PERRL, conjunctivae normal, anicteric sclerae ENMT: external ear and nose normal, oropharynx normal Neck: trachea midline, no thyromegaly Respiratory: no respiratory distress Auscultation: + diminished lung sounds and + crackles (Minimal bibasilar crackles ) Cardiovascular: Rate/Rhythm: regular rate and regular rhythm; not tachycardic Heart Sounds: normal S1 and normal S2; no murmur Extremities: + edema ( 1+ edema bilaterally with chronic skin changes) Gastrointestinal (Abdomen): Inspection/Auscultation: normal bowel sounds; abdomen not distended Percussion/Palpation: abdomen soft; abdomen nontender Musculoskeletal: Knee: + knee abnormal to inspection ( Swelling of the both knee joints), + effusion ( minimal effusion clinically) and + skin erythema ( erythema and swelling involving the right forearm and adjoining area elbo) Neurologic: normal touch/pain/proprioception and moves all extremities; no focal motor deficits Lymphatic: no cervical or axillary lymphadenopathy Results & Data Results & Data Vital Signs (Past 12 Hours) Vital Signs Temp Pulse Pulse Resp BP Pulse Ox Pulse Ox 04/27/25 11:15 36.3 C L 99 H 22 116/71 97 04/27/25 09:25 04/27/25 08:00 93 04/27/25 07:35 36.6 C 98 H 22 127/73 97 04/27/25 07:12 98 H 04/27/25 02:54 36.7 C 97 H 109/65 97 O2 Del Method O2 Del Method O2 Flow Rate O2 Flow Rate 04/27/25 11:15 Nasal Cannula 3.5 04/27/25 09:25 Nasal Cannula 3 04/27/25 08:00 Nasal Cannula 3 04/27/25 07:35 Nasal Cannula 3.5 04/27/25 07:12 04/27/25 02:54 Nasal Cannula 3.5 Laboratory Results Short CBC 04/27/25 Range/Units 06:11 WBC 4.68 L (4.8-10.8) K/ul Hgb 8.1 L (14.0-18.0) g/dL Hct 28.0 L (42.0-52.0) % Plt Count 191 (130-400) K/uL BMP 04/27/25 06:11 Sodium 143 Potassium 3.2 L Chloride 93 L Carbon Dioxide 43 H* BUN 40 H Creatinine 1.51 H Glucose 96 Calcium 8.8 Medications Administered Current Inpatient Medications Acetaminophen (Acetaminophen 500 Mg Tab) 500 mg PO Q6H PRN PRN Reason: fever/pain Stop: 05/19/25 22:54 Allopurinol (Allopurinol 100 Mg Tab) 100 mg PO DAILY [facility] Stop: 05/20/25 08:59 Last Admin: 04/27/25 08:52 Dose: 100 mg Apixaban (Apixaban 5 Mg Tablet) 5 mg PO BID [facility] Stop: 05/23/25 08:59 Last Admin: 04/27/25 08:52 Dose: 5 mg Aspirin (Aspirin 81 Mg Ectab) 81 mg PO QAM [facility] Stop: 05/22/25 15:29 Last Admin: 04/27/25 08:52 Dose: 81 mg Diclofenac Sodium (Diclofenac Sod 1% Gel 100 Gm Tube) 2 gm EXT Q6H PRN; Protocol PRN Reason: joint pain Stop: 05/20/25 03:21 Doxycycline Hyclate (Doxycycline Hyclate 100 Mg Cap) 100 mg PO BID [facility] Stop: 04/29/25 20:59 Last Admin: 04/27/25 08:52 Dose: 100 mg Finasteride (Finasteride 5 Mg Tab) 5 mg PO QAM [facility] Stop: 05/21/25 08:59 Last Admin: 04/27/25 08:53 Dose: 5 mg Furosemide (Furosemide 40 Mg/4 Ml Vial) 60 mg IV [id number] [facility] Stop: 05/22/25 13:59 Last Admin: 04/27/25 13:57 Dose: 60 mg Hydromorphone HCl (Hydromorphone Inj 0.5 Mg/0.5 Ml Syr) 0.5 mg IV Q6H PRN PRN Reason: Pain Stop: 05/03/25 22:54 Promethazine HCl (Phenergan) 6.25 mg in 50.25 mls @ 201 mls/hr IV Q6H PRN PRN Reason: Nausea And Vomiting Stop: 05/19/25 22:54 Lactic Acid (Ammonium Lactate 12% Lotion 225 Gm Btl) 1 gm EXT BID [facility] Stop: 05/20/25 08:59 Last Admin: 04/27/25 08:51 Dose: Not Given Lactulose (Lactulose Syrup 20 Gm/30 Ml Udc) 30 gm PO TID [facility] Stop: 05/25/25 08:00 Last Admin: 04/27/25 13:57 Dose: Not Given Metoprolol Succinate (Metoprolol Succ 50mg Ext Rel Tab) 100 mg PO BID [facility] Stop: 05/20/25 08:59 Last Admin: 04/27/25 08:52 Dose: 100 mg Ondansetron HCl (Ondansetron 4 Mg Od Tab) 4 mg PO Q4H PRN PRN Reason: Nausea And Vomiting Stop: 05/27/25 10:41 Oxycodone HCl (Oxycodone Hcl Ir 5 Mg Tab (Immediate Release)) 5 - 10 mg PO QID PRN PRN Reason: Pain Stop: 05/03/25 22:54 Last Admin: 04/26/25 23:03 Dose: 10 mg Phenazopyridine HCl (Phenazopyridine Hcl 200 Mg Tab) 200 mg PO TID PRN PRN Reason: Bladder pain Stop: 05/24/25 22:34 Last Admin: 04/27/25 12:16 Dose: 200 mg Polyethylene Glycol (Polyethylene (Miralax) 17 Gm Pack) 17 gm PO DAILY PRN PRN Reason: Constipation Stop: 05/21/25 21:02 Last Admin: 04/22/25 08:46 Dose: 17 gm Senna/Docusate Sodium (Docusate Sodium/Senna 50/8.6mg Tab) 1 tab PO [facility] Stop: 05/22/25 08:59 Last Admin: 04/27/25 08:47 Dose: Not Given Tamsulosin HCl (Tamsulosin Hcl 0.4 Mg Cap) 0.4 mg PO [facility] Stop: 05/20/25 20:59 Last Admin: 04/26/25 20:44 Dose: 0.4 mg
--- NOTE | 2025-04-27 15:36 | Cardiology Progress Note ---
Date of Service April 27, 2025 Assessment & Plan (1) Acute on chronic diastolic heart failure with preserved ejection fraction: (2) Acute on chronic respiratory failure with hypoxia and hypercapnia: (3) Chronic atrial flutter: (4) S/P MVR (mitral valve replacement): (5) S/P AVR (aortic valve replacement): (6) Ascites: Plan Patient is a 65 year old male with complex history of HFpEF, right heart failure, chronic respiratory failure, history of AVR and MVR with history of endocarditis, recurrent ascites, and non compliance with diuretics who presented to [facility] with worsening SOB/fluid retention consistent with acute on chronic HFpEF and acute right sided HF. Patient's at bedside states that patient avoids the evening dose of diuretics at home because he then has to go to the bathroom to urinate which is uncomfortable due to pain in his knees Acute HFpEF - improved Chronic Atrial flutter Right Heart failure - improved Ascites s/p Bioprosthetic MVR S/P Bioprosthetic AVR DJD USHA on CKD - may have to accept some azotemia for attaining euvolemic status Recommendations: correct and f/u electrolytes Goal serum K> 4.0 and goal serum Mg > 2.0 f/u renal function change IV to PO diuretics; hold PM dose of diuretics today continue anticoagulation -> Eliquis GDMT for HFpEF as tolerated avoid hypovolemia keep patient euvolemic keep LE elevated when sitting strict I&Os salt restriction history of hyperkalemia, avoid use of spironolactone. PT/OT OOB to chair with assistance as tolerated Admission and Anticipated Discharge Date Admission Date: April 19, 2025 Supervising Physician Co-Signing Physician Notes I have reviewed the advanced practitioner's documentation on the date of service referenced in note, and I agree with, and take responsibility for the plan of care. I spent a total of [15] minutes coordinating, documenting, and providing care for this patient excluding time spent in the performance of separately billed services or time spent by another provider. Subjective Patient on exam is lying in bed in NAD; no c/o cp, sob, palpitations, dizziness, LOC, cough, fever; decreased LE swelling; feels better Review of Systems Review of Systems: as per hpi Physical Exam Constitutional: lying in bed with 1 pillow in NAD Cardiovascular: Rate/Rhythm: regular rhythm Heart Sounds: + murmur (+1/6 systolic mumur) Chest (Breasts): Additional Comments: BLBS, no rales, no wheezing Gastrointestinal (Abdomen): soft, NT, BS+ Skin: + erythema (bilateral lower extremities ) Neurologic: PERRL, EOMI, accommodation nl, no face palsy, no dysarthria Psychiatric: A+Ox3, euthymic affect Results & Data Vital Signs (Past 12 Hours) Vital Signs Temp Pulse Pulse Resp BP Pulse Ox Pulse Ox 04/27/25 14:50 99 H 04/27/25 11:15 36.3 C L 99 H 22 116/71 97 04/27/25 09:25 04/27/25 08:00 93 04/27/25 07:35 36.6 C 98 H 22 127/73 97 04/27/25 07:12 98 H O2 Del Method O2 Del Method O2 Flow Rate O2 Flow Rate 04/27/25 14:50 04/27/25 11:15 Nasal Cannula 3.5 04/27/25 09:25 Nasal Cannula 3 04/27/25 08:00 Nasal Cannula 3 04/27/25 07:35 Nasal Cannula 3.5 04/27/25 07:12 Laboratory Results Laboratory Results WBC 4.68 K/ul (4.8-10.8) L 04/27/25 06:11 RBC 3.23 M/uL (4.70-6.10) L 04/27/25 06:11 Hgb 8.1 g/dL (14.0-18.0) L 04/27/25 06:11 Hct 28.0 % (42.0-52.0) L 04/27/25 06:11 MCV 86.7 fL (80.0-100.0) 04/27/25 06:11 MCH 25.1 pg (25.0-34.0) 04/27/25 06:11 MCHC 28.9 g/dL (32.0-36.0) L 04/27/25 06:11 RDW Std Deviation 55.0 fL (36.4-46.3) H 04/27/25 06:11 RDW Coeff of Arely 17.2 % (11.5-14.5) H 04/27/25 06:11 Plt Count 191 K/uL (130-400) 04/27/25 06:11 MPV 10.8 fL (9.4-12.4) 04/27/25 06:11 Immature Gran % (Auto) 0.4 % 04/27/25 06:11 Neut % (Auto) 69.6 % 04/27/25 06:11 Lymph % (Auto) 10.3 % 04/27/25 06:11 Runnels % (Auto) 12.4 % 04/27/25 06:11 Eos % (Auto) 7.1 % 04/27/25 06:11 Baso % (Auto) 0.2 % 04/27/25 06:11 Neut # (Auto) 3.26 K/uL (1.40-6.50) 04/27/25 06:11 Lymph # (Auto) 0.48 K/uL (1.20-3.40) L 04/27/25 06:11 Runnels # (Auto) 0.58 K/uL (0.11-0.59) 04/27/25 06:11 Eos # (Auto) 0.33 K/uL (0.00-0.50) 04/27/25 06:11 Baso # (Auto) 0.01 K/uL (0.00-0.20) 04/27/25 06:11 Immature Gran # (Auto) 0.02 K/uL (0.01-0.20) 04/27/25 06:11 PT 11.4 Seconds (9.0-12.0) 04/19/25 19:05 INR 1.1 (0.9-1.1) 04/19/25 19:05 Heparin Anti-Xa, Unfract 0.10 IU/ml (0.3-0.7) L 04/21/25 14:09 Sodium 143 mmol/L (136-145) 04/27/25 06:11 Potassium 3.2 mmol/L (3.5-5.1) L 04/27/25 06:11 Chloride 93 mmol/L (98-107) L 04/27/25 06:11 Carbon Dioxide 43 mmol/L (21-32) H* 04/27/25 06:11 Anion Gap 7 (3-11) 04/27/25 06:11 BUN 40 mg/dl (6-23) H 04/27/25 06:11 Creatinine 1.51 mg/dl (0.6-1.4) H 04/27/25 06:11 Est Cr Clr Drug Dosing 57.4 ml/min 04/27/25 06:11 eGFR 50.62 04/27/25 06:11 BUN/Creatinine Ratio 26.5 (10-20) H 04/27/25 06:11 Glucose 96 mg/dl (70-99(Fasting)) 04/27/25 06:11 Calcium 8.8 mg/dl (8.6-10.3) 04/27/25 06:11 Phosphorus 3.2 mg/dl (2.5-4.9) 04/25/25 06:20 Magnesium 1.7 mg/dl (1.7-2.4) 04/26/25 09:33 Iron 21 mcg/dl (35-175) L 04/22/25 06:24 Unsaturated IBC 309 mcg/dl (155-355) 04/22/25 06:24 Total Bilirubin 0.5 mg/dl (0.2-1.0) 04/20/25 07:25 Direct Bilirubin 0.2 mg/dl (0-0.2) 04/19/25 18:57 AST 15 U/L (13-39) 04/20/25 07:25 ALT 8 U/L (7-52) 04/20/25 07:25 Alkaline Phosphatase 90 U/L (34-104) 04/20/25 07:25 Troponin I High Sens 17.5 pg/ml (0-20) 04/19/25 18:57 B-Natriuretic Peptide 1339 pg/ml (0-100) H 04/19/25 18:57 Total Protein 6.9 gm/dl (6.0-8.3) 04/20/25 07:25 Albumin 3.7 gm/dl (3.4-5.0) 04/20/25 07:25 Globulin 3.2 gm/dl (2.5-4.0) 04/20/25 07:25 Albumin/Globulin Ratio 1.2 (0.9-2) 04/20/25 07:25 Lipase 12 U/L (11-82) 04/19/25 18:57 Vitamin B12 298 pg/ml (180-914) 04/22/25 06:24 Folate 13.50 ng/ml (>5.38) 04/22/25 06:24 TSH 5.763 uIu/ml (0.300-4.500) H 04/20/25 07:25 Free T4 0.88 ng/dl (0.61-1.60) 04/20/25 07:25 SARS-CoV-2 (PCR) NEGATIVE (Negative) 04/19/25 21:57 Influenza Type A (PCR) Negative (Neg) 04/19/25 21:57 Influenza Type B (PCR) Negative (Neg) 04/19/25 21:57 RSV (RT-PCR) Negative (Neg) 04/19/25 21:57 Blood Type O Positive 04/21/25 20:05 Antibody Screen NEGATIVE 04/21/25 20:05 Impressions Chest X-Ray 04/19/25 18:41 Clinical History: Chest pain Technique: A frontal view of the chest was obtained Comparison is made to the prior examination dated 12/03/2024 Findings: There is right lower lobe opacity that could be due to pneumonia. There is also suspected pulmonary vascular congestion. The heart is mildly enlarged. There is a prosthetic cardiac valve. Sternal wires are present. No definite pneumothorax is seen. There is a small to moderate sized right pleural effusion. No fracture is noted. No foreign body is seen Impression: 1. Cardiomegaly and pulmonary vascular congestion 2. Possible right lower lobe pneumonia 3. Right pleural effusion ACT 112: Positive. There are findings on this exam that require communication between the performing entity and the patient following Patient Test Result Information Act ([place] ACT 112) guidelines. Electronically signed by Ayo Yee 04-19-2025 7:[address] 04/19/25 22:46 EXAM: CT chest diagnostic wo con CLINICAL HISTORY: pleural effusion, pnx TECHNIQUE: Contiguous axial CT images of the chest were acquired without administration of intravenous contrast. Coronal and sagittal reconstructions were obtained. One of the following dose reduction techniques were utilized for this exam: Automated exposure control, adjustment of the mA and/or kV according to patient size, use of iterative reconstruction. COMPARISON: Correlation with the 04/19/2025 18:30:00 GEOSCIENCE TECHNICIAN chest X-ray. FINDINGS: Lungs: No evidence of consolidation focal lesions. No pulmonary nodules or masses are identified. No evidence of interstitial lung disease or emphysema. Moderate right pleural effusion with associated subsegmental compressive atelectasis of the right lower lobe. Trace left pleural effusion. Bibasilar streaky atelectasis and scarring in the right upper lobe. Mediastinum: The mediastinum is normal in size and contour. Multiple small mediastinal lymphadenopathies. Multiple left axillary lymphadenopathies, Ultarsound is needed. There is mild cardiomegaly with mitral and aortic prosthetic valves. Hilar Structures: The hilar structures appear normal without enlargement or abnormality. Atheromatous calcifications of the aorta and coronary arteries. Trachea and Main Bronchi: The trachea and main bronchi are patent without evidence of obstruction or abnormality. Chest Wall: The chest wall is unremarkable with no evidence of soft tissue or bony abnormalities. Median sternotomy wires are seen. Upper Abdomen: Hxdq-ls-xoeqehck ascites. Liver cirrhosis. Bones: No evidence of fracture or lytic/sclerotic lesions. Moderate thoracic spondylosis. IMPRESSION: Moderate right pleural effusion with associated subsegmental compressive atelectasis of the right lower lobe. Trace left pleural effusion. Bibasilar streaky atelectasis and scarring in the right upper lobe. Mild cardiomegaly. Multiple small mediastinal lymphadenopathies. Multiple left axillary lymphadenopathies, Ultrasound is needed. Moderate thoracic spondylosis. Zipy-zc-blgxenrm ascites. Liver cirrhosis. Electronically signed by Cody Rowell 04-20-2025 07:[address] 04/21/25 19:50 Exam(s): CT EXTREMITY RIGHT UPPER Without Contrast EXAM: CT Right Upper Extremity Without Intravenous Contrast CLINICAL HISTORY: Reason for exam: Swelling, heparin. TECHNIQUE: Axial computed tomography images of the right upper extremity without intravenous contrast. CTDI is 6.03 mGy and DLP is 187.1 mGy-cm. Automated exposure control was utilized for the study. A dose lowering technique was utilized adhering to the principles of ALARA. COMPARISON: No relevant prior studies available. FINDINGS: Bones/joints: Ulvl-uj-xuyjourd degenerative changes of the 1st carpometacarpal joint. The radius and ulna are intact and normally aligned. Bone mineral density is normal. No acute fracture. Soft tissues: There is severe circumferential subcutaneous edema throughout the entire right forearm. No subcutaneous emphysema, abscess, or foreign body is identified. Vasculature: Moderate diffuse arterial calcification throughout the radial artery. IMPRESSION: There is severe circumferential subcutaneous edema throughout the entire right forearm. No subcutaneous emphysema, abscess, or foreign body is identified. Consider cellulitis. Electronically signed by: Florian Moe MD 04/21/25 23:43 PM Paracentesis Ultrasound 04/22/25 08:30 ULTRASOUND-GUIDED PARACENTESIS CLINICAL HISTORY: Ascites PROCEDURE: Procedure and risks were explained. Informed consent was obtained. A final timeout was completed. The abdomen was prepped and draped in sterile fashion. 1% lidocaine was utilized for skin anesthesia. Utilizing ultrasound guidance, a 5 Latvian safety centesis catheter was advanced into the left lower quadrant pocket of ascites. Ultrasound images were obtained. 2.4 L of ascites fluid was removed and discarded. The catheter was removed and Band-Aid applied. The patient tolerated the procedure well. Vital signs will be monitored postprocedure. IMPRESSION: Ultrasound-guided paracentesis as above. Performed, dictated, and signed by Lon Joseph PA-C; to be co-signed by Dr. Taz Grant. Electronically signed by: Taz Grant M.D. 04/22/2025 2:50 PM Diagnostic Findings CBC 04/27/25 Range/Units 06:11 WBC 4.68 L (4.8-10.8) K/ul RBC 3.23 L (4.70-6.10) M/uL Hgb 8.1 L (14.0-18.0) g/dL Hct 28.0 L (42.0-52.0) % Plt Count 191 (130-400) K/uL Neut # (Auto) 3.26 (1.40-6.50) K/uL Lymph # (Auto) 0.48 L (1.20-3.40) K/uL Runnels # (Auto) 0.58 (0.11-0.59) K/uL Eos # (Auto) 0.33 (0.00-0.50) K/uL Baso # (Auto) 0.01 (0.00-0.20) K/uL Comprehensive Metabolic Panel 04/27/25 Range/Units 06:11 Sodium 143 (136-145) mmol/L Potassium 3.2 L (3.5-5.1) mmol/L Chloride 93 L (98-107) mmol/L Carbon Dioxide 43 H* (21-32) mmol/L BUN 40 H (6-23) mg/dl Creatinine 1.51 H (0.6-1.4) mg/dl Glucose 96 (70-99(Fasting)) mg/dl Calcium 8.8 (8.6-10.3) mg/dl Intake and Output 04/27/25 04/27/25 04/27/25 06:59 14:59 22:59 Intake Total 100 / 1160 655 / 655 Output Total 2049 1200 / 1200 Balance -300 / -890 -545 / -545 Intake: Oral 100 / 1160 Tube Feeding 655 / 655 Output: Urine Amount (Catheter) 2049 1200 / 1200 Lara/Indwelling 2049 1200 / 1200 Other: Weight 108.1 kg Weight Measurement Method Built in [facility] Medications Administered Home Medications Medication Instructions Recorded Confirmed Last Taken apixaban 5 mg tablet 5 mg PO QAM 12/05/23 04/20/25 11/28/24 aspirin 81 mg capsule 81 mg PO QAM 12/05/23 04/20/25 11/28/24 cholecalciferol (vitamin D3) 125 125 mcg PO DAILY 12/05/23 04/20/25 11/28/24 mcg (5,000 unit) tablet (Vitamin D3) coenzyme Q10 100 mg capsule 100 mg PO DAILY 12/05/23 04/20/25 11/28/24 (CoQ-10) magnesium oxide 400 mg (241.3 mg 400 mg PO DAILY #30 tabs 12/12/23 04/20/25 11/28/24 magnesium) tablet empagliflozin 10 mg tablet 10 mg PO DAILY #30 tabs 11/12/24 04/20/25 11/28/24 (Jardiance) allopurinol 100 mg tablet 100 mg PO DAILY 11/28/24 01/26/25 11/28/24 ammonium lactate 12 % lotion 1 applic topical BID 11/28/24 04/20/25 11/28/24 metoprolol succinate 100 mg 100 mg PO BID 11/28/24 04/20/25 11/28/24 tablet,extended release 24 hr potassium chloride 20 mEq 20 meq PO DAILY 01/26/25 01/26/25 Unknown tablet,extended release(part/cryst) allopurinol 100 mg tablet 100 mg PO DAILY 04/20/25 04/20/25 Unknown (Zyloprim) torsemide 20 mg tablet 60 mg PO BID 04/20/25 Unknown Active Medications Generic Name Dose Route Start Last Admin Trade Name Freq PRN Reason Stop Dose Admin Allopurinol 100 mg 04/20/25 09:00 04/27/25 08:52 Allopurinol 100 Mg Tab PO 05/20/25 08:59 100 mg DAILY PIPER Administration Apixaban 5 mg 04/23/25 09:00 04/27/25 08:52 Apixaban 5 Mg Tablet PO 05/23/25 08:59 5 mg BID PIPER Administration Aspirin 81 mg 04/22/25 15:30 04/27/25 08:52 Aspirin 81 Mg Ectab PO 05/22/25 15:29 81 mg QAM PIPER Administration Doxycycline Hyclate 100 mg 04/22/25 21:00 04/27/25 08:52 Doxycycline Hyclate 100 Mg Cap PO 04/29/25 20:59 100 mg BID PIPER Administration Finasteride 5 mg 04/21/25 09:00 04/27/25 08:53 Finasteride 5 Mg Tab PO 05/21/25 08:59 5 mg QAM PIPER Administration Furosemide 60 mg 04/22/25 14:00 04/27/25 13:57 Furosemide 40 Mg/4 Ml Vial IV 05/22/25 13:59 60 mg [id number] PIPER Administration Lactic Acid 1 gm 04/20/25 09:00 04/27/25 08:51 Ammonium Lactate 12% Lotion 225 Gm Btl EXT 05/20/25 08:59 Not Given BID PIPER Lactulose 30 gm 04/24/25 14:00 04/27/25 13:57 Lactulose Syrup 20 Gm/30 Ml Udc PO 05/25/25 08:00 Not Given TID PIPER Metoprolol Succinate 100 mg 04/20/25 09:00 04/27/25 08:52 Metoprolol Succ 50mg Ext Rel Tab PO 05/20/25 08:59 100 mg BID PIPER Administration Oxycodone HCl 5 - 10 mg 04/19/25 22:55 04/26/25 23:03 Oxycodone Hcl Ir 5 Mg Tab (Immediate Release) PO 05/03/25 22:54 10 mg QID PRN Administration Pain Phenazopyridine HCl 200 mg 04/24/25 22:35 04/27/25 12:16 Phenazopyridine Hcl 200 Mg Tab PO 05/24/25 22:34 200 mg TID PRN Administration Bladder pain Polyethylene Glycol 17 gm 04/21/25 21:03 04/22/25 08:46 Polyethylene (Miralax) 17 Gm Pack PO 05/21/25 21:02 17 gm DAILY PRN Administration Constipation Senna/Docusate Sodium 1 tab 04/22/25 09:00 04/27/25 08:47 Docusate Sodium/Senna 50/8.6mg Tab PO 05/22/25 08:59 Not Given QAM PIPER Tamsulosin HCl 0.4 mg 04/20/25 21:00 04/26/25 20:44 Tamsulosin Hcl 0.4 Mg Cap PO 05/20/25 20:59 0.4 mg HS PIPER Administration PG Care Time/CCT Total # of Minutes Spent Total Time Spent with Patient: Total time spent is greater than 50% in coordination of care (as documented) at patient's floor/unit and/or counseling patient: Coding Level of Care Code 25291 SUB INP/OBS CARE 3/50MIN Diagnoses Acute on chronic diastolic heart failure with preserved ejection fraction I50.33 Acute on chronic respiratory failure with hypoxia and hypercapnia J96.21; J96.22 Chronic atrial flutter I48.92 S/P MVR (mitral valve replacement) Z95.2 S/P AVR (aortic valve replacement) Z95.2 Ascites R18.8
[2025-04-27] MEDS: ONDANSETRON 4 MG OD TAB PO PRN (16:22)
[2025-04-28 07:24] LABS: Hematocrit (blood only) 29.6 % (42.0-52.0); Hemoglobin 8.5 g/dL (14.0-18.0); Immature Granulocytes # (auto) 0.03 K/uL (0.01-0.20); Immature Granulocytes % (auto) 0.6 %; Mean Corpuscular Hemoglobin 25.1 pg (25.0-34.0); Mean Corpuscular Volume 87.6 fL (80.0-100.0); Platelet Count 207 K/uL (130-400); RDW Standard Deviation 55.9 fL (36.4-46.3); Red Blood Count 3.38 M/uL (4.70-6.10); White Blood Count 5.27 K/ul (4.8-10.8)
[2025-04-28 07:37] LABS: Anion Gap 7.0 (3-11); Blood Urea Nitrogen 45.0 mg/dl (6-23); Calcium 9.0 mg/dl (8.6-10.3); Carbon Dioxide 43.0 mmol/L (21-32); Chloride 91.0 mmol/L (98-107); Creatinine Clr Calc Pharmacy 46.8 ml/min; Glucose 94.0 mg/dl (70-99(Fasting)); Magnesium 1.8 mg/dl (1.7-2.4); Potassium 3.3 mmol/L (3.5-5.1); Sodium 141.0 mmol/L (136-145)
[2025-04-28] MEDS: POTASSIUM CHLORIDE CRTAB 20 MEQ TABCR PO STA (08:59)
[2025-04-28] MEDS: TORSEMIDE 10 MG TAB PO SCH (09:02)
--- NOTE | 2025-04-28 13:51 | Hospitalist Progress Note ---
Date of Service April 28, 2025 Assessment & Plan (1) Shortness of breath: Plan: 65M with PMH HFpEF, R sided CHF, severe aortic stenosis s/p AVR, cirrhosis, chronic hypoxic resp failure on 2L rest, 4L exertion/qHS, CKD3 BPH, who presents with CHF #Acute on chronic HFpEF #R sided CHF -Secondary to non compliance with diuretic regimen -He was not taking diuretics as he didn't want to keep going to the bathroom to urinate -BNP elevated. CXR and CT chest showing moderate R pleural effusion Has been getting intravenous Lasix 60 mg twice daily and diuresing enough Appreciate cardiology input and recommendation Echo of the heart showed normal LV size, moderate concentric LVH, LVEF 65 to 70%, LA is moderately dilated, RV is moderately dilated, right ventricular systolic function is mildly reduced, there is bioprosthetic aortic valve mild to moderate tricuspid regurgitation and right ventricular systolic pressure is elevated to 40 to 50 mmHg Will monitor PRP Lasix doses have been decreased to 40 mg twice daily by the buyer grain -Cumulative fluid balance is negative 2162 mls Clinically much better and not complaining of any shortness of breath at rest but is still requiring 4 L to maintain saturation Cumulative fluid balance is -4316 mL His furosemide doses have been increased to 60 mg twice daily He has been diuresing enough and will continue current dose of Lasix for now Will continue Lasix 40 mg intravenously twice a day Clinically stable with negative fluid balance of more than 10 L Diuretics have been changed to oral and the patient remains free from any symptoms Awaiting placement #Cirrhosis with ongoing ascites and requiring frequent paracentesis -Not compliant with diuretics as above -Gets monthly paracentesis with last para 04/14 -May need another para but last dose of eliquis was 04/19 -Can plan for para on 04/22 if still here and eliquis has been held for 3 days -Of note, he is not on a bowel regimen -No asterixis on exam or confusion -Will start lactulose while hospitalized. He should have 2-3 Loose bowel movements per day He is status post 2.4 L paracentesis today and has been feeling okay following the procedure He will be given lactulose for bowel movement Has not had a bowel movement for the last few days Remains clinically stable to be transferred and awaiting placement Will need ongoing frequent paracentesis as an outpatient Palliative care encounter Appreciate palliative care input and recommendation DNR/DNI and continue current management. Right forearm swelling and redness Secondary to extravasation of heparin CT showed possible cellulitis but no abscess Has been getting doxycycline for that Clinically much better Knee pain Has significant osteoarthritis mostly on the left knee Has been complaining of increasing pain since last evening Cannot take any NSAIDs and has been getting diclofenac locally Has been on oxycodone as well for pain control Knee pain is better Denies any more pain #Moderate R pleural effusion -Suspect secondary to CHF/cirrhosis -Low suspicion for exudative/parapneumonic effusion -Chronic hypoxic resp failure on 2L rest, 4L exertion. At baseline -Will need repeat imaging once he is on a stable diuretic regimen to ensure it is improving #pAfib -Eliquis held for possible paracentesis -Currently on heparin drip for stroke prophylaxis -Continue metoprolol for rate control Eliquis needs to be on hold for 3 days prior to paracentesis Status post paracentesis and plan to restart Eliquis from tomorrow morning Rate is controlled with current medications #Lymphadenopathy -Incidentally noted multiple axillary and mediastinal lymphadenopathies -Can obtain US of these as outpatient #BPH -Follow with urology as OP. reviewed note from 01/26/25 -Will start flomax and finasteride to help decrease urinary frequency while on diuretics on discharge -Continue echavarria for now -Voiding trial prior to discharge. #Anemia -Chronic normocytic anemia -At baseline -No bleeding -Check Fe panel, B12, folate #CKD3 -At baseline -Avoid nephrotoxic agents if possible -Watch closely while on IV diuretics I spent a total of 34 minutes minutes coordinating, documenting, and providing care for this patient excluding time spent in the performance of separately billed services. This included personally reviewing all current laboratories and imaging studies, medical reconciliation, outpatient chart review and discussion with specialists Admission and Anticipated Discharge Date Admission Date: April 19, 2025 Subjective 04/21/2025 Patient was seen and examined in telemetry unit He has been complaining of bilateral knee pain since last night Denies any other significant symptoms except weakness Denies any nausea and/or vomiting 04/22/2025 The patient was seen and examined in telemetry unit He has had some extravasation of heparin in right forearm last night has been feeling much better Denies any significant symptoms and he will have paracentesis today 04/23/2025 Patient was seen and examined in telemetry unit He has been feeling better and denies any significant symptoms except weakness He has been waiting for physical therapy and appropriate disposition 04/24/2025 The patient was seen and examined in telemetry unit He has been stable and complains to have thirst 04/25/2025 The patient was seen and examined in telemetry unit He has been much better with profuse diuresis Has been saturating normally on room air Weakness seems to be improving and edema is much improved 04/26/2025 The patient was seen and examined in telemetry unit in presence of the He remains weak and lethargic otherwise denies any other significant symptoms Still diuresing enough with current dose of Lasix Awaiting placement Will ask for a palliative care evaluation while in the hospital 04/27/2025 Patient was seen and examined in telemetry unit He has been stable denies any significant symptoms Has been having enough diuresis with decreasing swelling in the legs Minimal nausea, no other significant symptoms 04/28/2025 The patient was seen and examined in telemetry unit He remains stable has been feeling much better today Denies any shortness of breath or chest pain, abdominal pain nausea or vomiting Awaiting placement awaiting Review of Systems Review of Systems: All systems reviewed and are unremarkable except as noted below Physical Exam Physical Exam: Lying in bed with distress due to generalized discomfort and bilateral knee pain Constitutional: well developed, well nourished, + ill appearing and + obese Eyes: PERRL, conjunctivae normal, anicteric sclerae ENMT: external ear and nose normal, oropharynx normal Neck: trachea midline, no thyromegaly Respiratory: no respiratory distress Auscultation: + diminished lung sounds and + crackles (Minimal bibasilar crackles ) Cardiovascular: Rate/Rhythm: regular rate and regular rhythm; not tachycardic Heart Sounds: normal S1 and normal S2; no murmur Extremities: + edema ( 1+ edema bilaterally with chronic skin changes) Gastrointestinal (Abdomen): Inspection/Auscultation: normal bowel sounds; abdomen not distended Percussion/Palpation: abdomen soft; abdomen nontender Musculoskeletal: Knee: + knee abnormal to inspection ( Swelling of the both knee joints), + effusion ( minimal effusion clinically) and + skin erythema ( erythema and swelling involving the right forearm and adjoining area elbo) Neurologic: normal touch/pain/proprioception and moves all extremities; no focal motor deficits Lymphatic: no cervical or axillary lymphadenopathy Results & Data Results & Data Vital Signs (Past 12 Hours) Vital Signs Temp Pulse Pulse Resp BP Pulse Ox O2 Del Method 04/28/25 11:31 Nasal Cannula 04/28/25 11:13 36.4 C L 98 H 16 110/65 91 Nasal Cannula 04/28/25 09:25 Nasal Cannula 04/28/25 07:57 36.4 C L 98 H 24 109/60 91 Nasal Cannula 04/28/25 07:38 98 H 04/28/25 02:46 37.0 C 98 H 18 105/61 92 Room Air O2 Flow Rate 04/28/25 11:31 2 04/28/25 11:13 2 04/28/25 09:25 2 04/28/25 07:57 04/28/25 07:38 04/28/25 02:46 Laboratory Results Short CBC 04/28/25 Range/Units 05:52 WBC 5.27 (4.8-10.8) K/ul Hgb 8.5 L (14.0-18.0) g/dL Hct 29.6 L (42.0-52.0) % Plt Count 207 (130-400) K/uL BMP 04/28/25 05:52 Sodium 141 Potassium 3.3 L Chloride 91 L Carbon Dioxide 43 H* BUN 45 H Creatinine 1.80 H Glucose 94 Calcium 9.0 High risk patient due to generalized Medications Administered Current Inpatient Medications Acetaminophen (Acetaminophen 500 Mg Tab) 500 mg PO Q6H PRN PRN Reason: fever/pain Stop: 05/19/25 22:54 Allopurinol (Allopurinol 100 Mg Tab) 100 mg PO DAILY [facility] Stop: 05/20/25 08:59 Last Admin: 04/28/25 09:00 Dose: 100 mg Apixaban (Apixaban 5 Mg Tablet) 5 mg PO BID [facility] Stop: 05/23/25 08:59 Last Admin: 04/28/25 09:00 Dose: 5 mg Aspirin (Aspirin 81 Mg Ectab) 81 mg PO QAM [facility] Stop: 05/22/25 15:29 Last Admin: 04/28/25 09:00 Dose: 81 mg Diclofenac Sodium (Diclofenac Sod 1% Gel 100 Gm Tube) 2 gm EXT Q6H PRN; Protocol PRN Reason: joint pain Stop: 05/20/25 03:21 Doxycycline Hyclate (Doxycycline Hyclate 100 Mg Cap) 100 mg PO BID [facility] Stop: 04/29/25 20:59 Last Admin: 04/28/25 09:00 Dose: 100 mg Finasteride (Finasteride 5 Mg Tab) 5 mg PO QAM [facility] Stop: 05/21/25 08:59 Last Admin: 04/28/25 09:01 Dose: 5 mg Hydromorphone HCl (Hydromorphone Inj 0.5 Mg/0.5 Ml Syr) 0.5 mg IV Q6H PRN PRN Reason: Pain Stop: 05/03/25 22:54 Promethazine HCl (Phenergan) 6.25 mg in 50.25 mls @ 201 mls/hr IV Q6H PRN PRN Reason: Nausea And Vomiting Stop: 05/19/25 22:54 Lactic Acid (Ammonium Lactate 12% Lotion 225 Gm Btl) 1 gm EXT BID [facility] Stop: 05/20/25 08:59 Last Admin: 04/28/25 09:00 Dose: 1 gm Lactulose (Lactulose Syrup 20 Gm/30 Ml Udc) 30 gm PO TID [facility] Stop: 05/25/25 08:00 Last Admin: 04/28/25 13:47 Dose: Not Given Metoprolol Succinate (Metoprolol Succ 50mg Ext Rel Tab) 100 mg PO BID [facility] Stop: 05/20/25 08:59 Last Admin: 04/28/25 09:02 Dose: 100 mg Ondansetron HCl (Ondansetron 4 Mg Od Tab) 4 mg PO Q4H PRN PRN Reason: Nausea And Vomiting Stop: 05/27/25 10:41 Last Admin: 04/28/25 09:11 Dose: 4 mg Oxycodone HCl (Oxycodone Hcl Ir 5 Mg Tab (Immediate Release)) 5 - 10 mg PO QID PRN PRN Reason: Pain Stop: 05/03/25 22:54 Last Admin: 04/26/25 23:03 Dose: 10 mg Phenazopyridine HCl (Phenazopyridine Hcl 200 Mg Tab) 200 mg PO TID PRN PRN Reason: Bladder pain Stop: 05/24/25 22:34 Last Admin: 04/28/25 09:03 Dose: 200 mg Polyethylene Glycol (Polyethylene (Miralax) 17 Gm Pack) 17 gm PO DAILY PRN PRN Reason: Constipation Stop: 05/21/25 21:02 Last Admin: 04/22/25 08:46 Dose: 17 gm Senna/Docusate Sodium (Docusate Sodium/Senna 50/8.6mg Tab) 1 tab PO [facility] Stop: 05/22/25 08:59 Last Admin: 04/28/25 09:00 Dose: Not Given Tamsulosin HCl (Tamsulosin Hcl 0.4 Mg Cap) 0.4 mg PO [facility] Stop: 05/20/25 20:59 Last Admin: 04/27/25 20:38 Dose: 0.4 mg Torsemide ([facility]semide 10 Mg Tab) [facility] Stop: 05/28/25 08:59 Last Admin: 04/28/25 09:02 Dose: 10 mg
--- NOTE | 2025-04-28 17:09 | Cardiology Progress Note ---
Date of Service April 28, 2025 Assessment & Plan (1) Acute on chronic diastolic heart failure with preserved ejection fraction: (2) Acute on chronic respiratory failure with hypoxia and hypercapnia: (3) Chronic atrial flutter: (4) S/P MVR (mitral valve replacement): (5) S/P AVR (aortic valve replacement): (6) Ascites: Plan Patient is a 65 year old male with complex history of HFpEF, right heart failure, chronic respiratory failure, history of AVR and MVR with history of endocarditis, recurrent ascites, and non compliance with diuretics who presented to [facility] with worsening SOB/fluid retention consistent with acute on chronic HFpEF and acute right sided HF. Patient's at bedside states that patient avoids the evening dose of diuretics at home because he then has to go to the bathroom to urinate which is uncomfortable due to pain in his knees Acute HFpEF - improved Chronic Atrial flutter Right Heart failure - improved Ascites s/p Bioprosthetic MVR S/P Bioprosthetic AVR DJD USHA on CKD - may have to accept some azotemia for attaining euvolemic status Recommendations: correct and f/u electrolytes Goal serum K> 4.0 and goal serum Mg > 2.0 f/u renal function PO diuretics continue anticoagulation -> Eliquis GDMT for HFpEF as tolerated avoid hypovolemia keep patient euvolemic keep LE elevated when sitting strict I&Os salt restriction history of hyperkalemia, avoid use of spironolactone. PT/OT OOB to chair with assistance as tolerated awaiting [facility] Admission and Anticipated Discharge Date Admission Date: April 19, 2025 Supervising Physician Co-Signing Physician Notes I have reviewed the advanced practitioner's documentation on the date of service referenced in note, and I agree with, and take responsibility for the plan of care. I spent a total of [15] minutes coordinating, documenting, and providing care for this patient excluding time spent in the performance of separately billed services or time spent by another provider. Subjective Patient on exam is lying in bed in NAD; no c/o cp, sob, palpitations, dizziness, LOC, cough, fever, nausea, vomiting, abdominal pain feeling better Review of Systems Review of Systems: as per hpi Physical Exam Eyes: anicteric sclerae, pink conjunctiva Neck: supple, NT Respiratory: BLBS, no rales, no wheezing Cardiovascular: Rate/Rhythm: regular rhythm and + irregularly irregular Heart Sounds: + murmur (+1/6 systolic mumur) Skin: + erythema (bilateral lower extremities ) Neurologic: PERRL, EOMI, accommodation nl, no face palsy, no dysarthria Psychiatric: A+Ox3, euthymic affect Results & Data Vital Signs (Past 12 Hours) Vital Signs Vital Signs Temp 36.7 C 04/28/25 14:37 Pulse 99 H 04/28/25 14:47 Resp 16 04/28/25 14:37 BP 103/63 04/28/25 14:37 Pulse Ox 98 04/28/25 14:37 O2 Del Method Nasal Cannula 04/28/25 14:37 O2 Flow Rate 2 04/28/25 14:37 Intake & Output 04/27/25 04/28/25 04/28/25 18:59 06:59 18:59 Intake Total 655 / 1395 740 / 1395 240 / 240 Output Total 1200 / 1750 550 / 1750 450 / 450 Balance -545 / -355 190 / -355 -210 / -210 Weight 102.3 kg Intake: Oral 740 / 740 240 / 240 Tube Feeding 655 / 655 Output: Urine Amount (Catheter) 1200 / 1750 550 / 1750 450 / 450 Lara/Indwelling 1200 / 1750 550 / 1750 450 / 450 Other: Weight Measurement Method Built in [facility] Temp Pulse Pulse Pulse Resp BP Pulse Ox 04/28/25 14:47 99 H 04/28/25 14:37 36.7 C 100 H 16 103/63 98 04/28/25 11:31 04/28/25 11:13 36.4 C L 98 H 16 110/65 91 04/28/25 09:25 04/28/25 07:57 36.4 C L 98 H 24 109/60 91 04/28/25 07:38 98 H O2 Del Method O2 Flow Rate 04/28/25 14:47 04/28/25 14:37 Nasal Cannula 2 04/28/25 11:31 Nasal Cannula 2 04/28/25 11:13 Nasal Cannula 2 04/28/25 09:25 Nasal Cannula 2 04/28/25 07:57 Nasal Cannula 04/28/25 07:38 Laboratory Results Laboratory Results WBC 5.27 K/ul (4.8-10.8) 04/28/25 05:52 RBC 3.38 M/uL (4.70-6.10) L 04/28/25 05:52 Hgb 8.5 g/dL (14.0-18.0) L 04/28/25 05:52 Hct 29.6 % (42.0-52.0) L 04/28/25 05:52 MCV 87.6 fL (80.0-100.0) 04/28/25 05:52 MCH 25.1 pg (25.0-34.0) 04/28/25 05:52 MCHC 28.7 g/dL (32.0-36.0) L 04/28/25 05:52 RDW Std Deviation 55.9 fL (36.4-46.3) H 04/28/25 05:52 RDW Coeff of Arely 17.4 % (11.5-14.5) H 04/28/25 05:52 Plt Count 207 K/uL (130-400) 04/28/25 05:52 MPV 11.1 fL (9.4-12.4) 04/28/25 05:52 Immature Gran % (Auto) 0.6 % 04/28/25 05:52 Neut % (Auto) 70.2 % 04/28/25 05:52 Lymph % (Auto) 10.6 % 04/28/25 05:52 Hall % (Auto) 12.3 % 04/28/25 05:52 Eos % (Auto) 6.1 % 04/28/25 05:52 Baso % (Auto) 0.2 % 04/28/25 05:52 Neut # (Auto) 3.70 K/uL (1.40-6.50) 04/28/25 05:52 Lymph # (Auto) 0.56 K/uL (1.20-3.40) L 04/28/25 05:52 Hall # (Auto) 0.65 K/uL (0.11-0.59) H 04/28/25 05:52 Eos # (Auto) 0.32 K/uL (0.00-0.50) 04/28/25 05:52 Baso # (Auto) 0.01 K/uL (0.00-0.20) 04/28/25 05:52 Immature Gran # (Auto) 0.03 K/uL (0.01-0.20) 04/28/25 05:52 PT 11.4 Seconds (9.0-12.0) 04/19/25 19:05 INR 1.1 (0.9-1.1) 04/19/25 19:05 Heparin Anti-Xa, Unfract 0.10 IU/ml (0.3-0.7) L 04/21/25 14:09 Sodium 141 mmol/L (136-145) 04/28/25 05:52 Potassium 3.3 mmol/L (3.5-5.1) L 04/28/25 05:52 Chloride 91 mmol/L (98-107) L 04/28/25 05:52 Carbon Dioxide 43 mmol/L (21-32) H* 04/28/25 05:52 Anion Gap 7 (3-11) 04/28/25 05:52 BUN 45 mg/dl (6-23) H 04/28/25 05:52 Creatinine 1.80 mg/dl (0.6-1.4) H 04/28/25 05:52 Est Cr Clr Drug Dosing 46.8 ml/min 04/28/25 05:52 eGFR 41.00 04/28/25 05:52 BUN/Creatinine Ratio 25.0 (10-20) H 04/28/25 05:52 Glucose 94 mg/dl (70-99(Fasting)) 04/28/25 05:52 Calcium 9.0 mg/dl (8.6-10.3) 04/28/25 05:52 Phosphorus 3.2 mg/dl (2.5-4.9) 04/25/25 06:20 Magnesium 1.8 mg/dl (1.7-2.4) 04/28/25 05:52 Iron 21 mcg/dl (35-175) L 04/22/25 06:24 Unsaturated IBC 309 mcg/dl (155-355) 04/22/25 06:24 Total Bilirubin 0.5 mg/dl (0.2-1.0) 04/20/25 07:25 Direct Bilirubin 0.2 mg/dl (0-0.2) 04/19/25 18:57 AST 15 U/L (13-39) 04/20/25 07:25 ALT 8 U/L (7-52) 04/20/25 07:25 Alkaline Phosphatase 90 U/L (34-104) 04/20/25 07:25 Troponin I High Sens 17.5 pg/ml (0-20) 04/19/25 18:57 B-Natriuretic Peptide 1339 pg/ml (0-100) H 04/19/25 18:57 Total Protein 6.9 gm/dl (6.0-8.3) 04/20/25 07:25 Albumin 3.7 gm/dl (3.4-5.0) 04/20/25 07:25 Globulin 3.2 gm/dl (2.5-4.0) 04/20/25 07:25 Albumin/Globulin Ratio 1.2 (0.9-2) 04/20/25 07:25 Lipase 12 U/L (11-82) 04/19/25 18:57 Vitamin B12 298 pg/ml (180-914) 04/22/25 06:24 Folate 13.50 ng/ml (>5.38) 04/22/25 06:24 TSH 5.763 uIu/ml (0.300-4.500) H 04/20/25 07:25 Free T4 0.88 ng/dl (0.61-1.60) 04/20/25 07:25 SARS-CoV-2 (PCR) NEGATIVE (Negative) 04/19/25 21:57 Influenza Type A (PCR) Negative (Neg) 04/19/25 21:57 Influenza Type B (PCR) Negative (Neg) 04/19/25 21:57 RSV (RT-PCR) Negative (Neg) 04/19/25 21:57 Blood Type O Positive 04/21/25 20:05 Antibody Screen NEGATIVE 04/21/25 20:05 Impressions Chest X-Ray 04/19/25 18:41 Clinical History: Chest pain Technique: A frontal view of the chest was obtained Comparison is made to the prior examination dated 12/03/2024 Findings: There is right lower lobe opacity that could be due to pneumonia. There is also suspected pulmonary vascular congestion. The heart is mildly enlarged. There is a prosthetic cardiac valve. Sternal wires are present. No definite pneumothorax is seen. There is a small to moderate sized right pleural effusion. No fracture is noted. No foreign body is seen Impression: 1. Cardiomegaly and pulmonary vascular congestion 2. Possible right lower lobe pneumonia 3. Right pleural effusion ACT 112: Positive. There are findings on this exam that require communication between the performing entity and the patient following Patient Test Result Information Act ([place] ACT 112) guidelines. Electronically signed by Ayo Yee 04-19-2025 7:[address] 04/19/25 22:46 EXAM: CT chest diagnostic wo con CLINICAL HISTORY: pleural effusion, pnx TECHNIQUE: Contiguous axial CT images of the chest were acquired without administration of intravenous contrast. Coronal and sagittal reconstructions were obtained. One of the following dose reduction techniques were utilized for this exam: Automated exposure control, adjustment of the mA and/or kV according to patient size, use of iterative reconstruction. COMPARISON: Correlation with the 04/19/2025 18:30:00 [employer] chest X-ray. FINDINGS: Lungs: No evidence of consolidation focal lesions. No pulmonary nodules or masses are identified. No evidence of interstitial lung disease or emphysema. Moderate right pleural effusion with associated subsegmental compressive atelectasis of the right lower lobe. Trace left pleural effusion. Bibasilar streaky atelectasis and scarring in the right upper lobe. Mediastinum: The mediastinum is normal in size and contour. Multiple small mediastinal lymphadenopathies. Multiple left axillary lymphadenopathies, Ultarsound is needed. There is mild cardiomegaly with mitral and aortic prosthetic valves. Hilar Structures: The hilar structures appear normal without enlargement or abnormality. Atheromatous calcifications of the aorta and coronary arteries. Trachea and Main Bronchi: The trachea and main bronchi are patent without evidence of obstruction or abnormality. Chest Wall: The chest wall is unremarkable with no evidence of soft tissue or bony abnormalities. Median sternotomy wires are seen. Upper Abdomen: Whtg-zl-koocuanm ascites. Liver cirrhosis. Bones: No evidence of fracture or lytic/sclerotic lesions. Moderate thoracic spondylosis. IMPRESSION: Moderate right pleural effusion with associated subsegmental compressive atelectasis of the right lower lobe. Trace left pleural effusion. Bibasilar streaky atelectasis and scarring in the right upper lobe. Mild cardiomegaly. Multiple small mediastinal lymphadenopathies. Multiple left axillary lymphadenopathies, Ultrasound is needed. Moderate thoracic spondylosis. Vbxn-vy-ixlqyjrh ascites. Liver cirrhosis. Electronically signed by Cody Rowell 04-20-2025 07:[address] 04/21/25 19:50 Exam(s): CT EXTREMITY RIGHT UPPER Without Contrast EXAM: CT Right Upper Extremity Without Intravenous Contrast CLINICAL HISTORY: Reason for exam: Swelling, heparin. TECHNIQUE: Axial computed tomography images of the right upper extremity without intravenous contrast. CTDI is 6.03 mGy and DLP is 187.1 mGy-cm. Automated exposure control was utilized for the study. A dose lowering technique was utilized adhering to the principles of ALARA. COMPARISON: No relevant prior studies available. FINDINGS: Bones/joints: [id number] degenerative changes of the 1st carpometacarpal joint. The radius and ulna are intact and normally aligned. Bone mineral density is normal. No acute fracture. Soft tissues: There is severe circumferential subcutaneous edema throughout the entire right forearm. No subcutaneous emphysema, abscess, or foreign body is identified. Vasculature: Moderate diffuse arterial calcification throughout the radial artery. IMPRESSION: There is severe circumferential subcutaneous edema throughout the entire right forearm. No subcutaneous emphysema, abscess, or foreign body is identified. Consider cellulitis. Electronically signed by: Florian Moe MD 04/21/25 23:43 PM Paracentesis Ultrasound 04/22/25 08:30 ULTRASOUND-GUIDED PARACENTESIS CLINICAL HISTORY: Ascites PROCEDURE: Procedure and risks were explained. Informed consent was obtained. A final timeout was completed. The abdomen was prepped and draped in sterile fashion. 1% lidocaine was utilized for skin anesthesia. Utilizing ultrasound guidance, a 5 Gabonese safety centesis catheter was advanced into the left lower quadrant pocket of ascites. Ultrasound images were obtained. 2.4 L of ascites fluid was removed and discarded. The catheter was removed and Band-Aid applied. The patient tolerated the procedure well. Vital signs will be monitored postprocedure. IMPRESSION: Ultrasound-guided paracentesis as above. Performed, dictated, and signed by Lon Joseph PA-C; to be co-signed by Dr. Taz Grant. Electronically signed by: Taz Grant M.D. 04/22/2025 2:50 PM Diagnostic Findings CBC 04/28/25 Range/Units 05:52 WBC 5.27 (4.8-10.8) K/ul RBC 3.38 L (4.70-6.10) M/uL Hgb 8.5 L (14.0-18.0) g/dL Hct 29.6 L (42.0-52.0) % Plt Count 207 (130-400) K/uL Neut # (Auto) 3.70 (1.40-6.50) K/uL Lymph # (Auto) 0.56 L (1.20-3.40) K/uL Hall # (Auto) 0.65 H (0.11-0.59) K/uL Eos # (Auto) 0.32 (0.00-0.50) K/uL Baso # (Auto) 0.01 (0.00-0.20) K/uL Comprehensive Metabolic Panel 04/28/25 Range/Units 05:52 Sodium 141 (136-145) mmol/L Potassium 3.3 L (3.5-5.1) mmol/L Chloride 91 L (98-107) mmol/L Carbon Dioxide 43 H* (21-32) mmol/L BUN 45 H (6-23) mg/dl Creatinine 1.80 H (0.6-1.4) mg/dl Glucose 94 (70-99(Fasting)) mg/dl Calcium 9.0 (8.6-10.3) mg/dl Intake and Output 04/28/25 04/28/25 04/28/25 06:59 14:59 22:59 Intake Total 300 / 1395 240 / 240 Output Total 300 / 1750 450 / 450 Balance 0 / -355 -210 / -210 Intake: Oral 300 / 740 240 / 240 Output: Urine Amount (Catheter) 300 / 1750 450 / 450 Lara/Indwelling 300 / 1750 450 / 450 Other: Weight 102.3 kg Weight Measurement Method Built in [facility] Medications Administered Home Medications Medication Instructions Recorded Confirmed Last Taken apixaban 5 mg tablet 5 mg PO QAM 12/05/23 04/20/25 11/28/24 aspirin 81 mg capsule 81 mg PO QAM 12/05/23 04/20/25 11/28/24 cholecalciferol (vitamin D3) 125 125 mcg PO DAILY 12/05/23 04/20/25 11/28/24 mcg (5,000 unit) tablet (Vitamin D3) coenzyme Q10 100 mg capsule 100 mg PO DAILY 12/05/23 04/20/25 11/28/24 (CoQ-10) magnesium oxide 400 mg (241.3 mg 400 mg PO DAILY #30 tabs 12/12/23 04/20/25 11/28/24 magnesium) tablet empagliflozin 10 mg tablet 10 mg PO DAILY #30 tabs 11/12/24 04/20/25 11/28/24 (Jardiance) allopurinol 100 mg tablet 100 mg PO DAILY 11/28/24 01/26/25 11/28/24 ammonium lactate 12 % lotion 1 applic topical BID 11/28/24 04/20/25 11/28/24 metoprolol succinate 100 mg 100 mg PO BID 11/28/24 04/20/25 11/28/24 tablet,extended release 24 hr potassium chloride 20 mEq 20 meq PO DAILY 01/26/25 01/26/25 Unknown tablet,extended release(part/cryst) allopurinol 100 mg tablet 100 mg PO DAILY 04/20/25 04/20/25 Unknown (Zyloprim) torsemide 20 mg tablet 60 mg PO BID 04/20/25 Unknown Active Medications Generic Name Dose Route Start Last Admin Trade Name Freq PRN Reason Stop Dose Admin Allopurinol 100 mg 04/20/25 09:00 04/28/25 09:00 Allopurinol 100 Mg Tab PO 05/20/25 08:59 100 mg DAILY PIPER Administration Apixaban 5 mg 04/23/25 09:00 04/28/25 09:00 Apixaban 5 Mg Tablet PO 05/23/25 08:59 5 mg BID PIPER Administration Aspirin 81 mg 04/22/25 15:30 04/28/25 09:00 Aspirin 81 Mg Ectab PO 05/22/25 15:29 81 mg QAM PIPER Administration Doxycycline Hyclate 100 mg 04/22/25 21:00 04/28/25 09:00 Doxycycline Hyclate 100 Mg Cap PO 04/29/25 20:59 100 mg BID PIPER Administration Finasteride 5 mg 04/21/25 09:00 04/28/25 09:01 Finasteride 5 Mg Tab PO 05/21/25 08:59 5 mg QAM PIPER Administration Lactic Acid 1 gm 04/20/25 09:00 04/28/25 09:00 Ammonium Lactate 12% Lotion 225 Gm Btl EXT 05/20/25 08:59 1 gm BID PIPER Administration Lactulose 30 gm 04/24/25 14:00 04/28/25 13:47 Lactulose Syrup 20 Gm/30 Ml Udc PO 05/25/25 08:00 Not Given TID PIPER Metoprolol Succinate 100 mg 04/20/25 09:00 04/28/25 09:02 Metoprolol Succ 50mg Ext Rel Tab PO 05/20/25 08:59 100 mg BID PIPER Administration Ondansetron HCl 4 mg 04/27/25 10:42 04/28/25 09:11 Ondansetron 4 Mg Od Tab PO 05/27/25 10:41 4 mg Q4H PRN Administration Nausea And Vomiting Oxycodone HCl 5 - 10 mg 04/19/25 22:55 04/26/25 23:03 Oxycodone Hcl Ir 5 Mg Tab (Immediate Release) PO 05/03/25 22:54 10 mg QID PRN Administration Pain Phenazopyridine HCl 200 mg 04/24/25 22:35 04/28/25 09:03 Phenazopyridine Hcl 200 Mg Tab PO 05/24/25 22:34 200 mg TID PRN Administration Bladder pain Polyethylene Glycol 17 gm 04/21/25 21:03 04/22/25 08:46 Polyethylene (Miralax) 17 Gm Pack PO 05/21/25 21:02 17 gm DAILY PRN Administration Constipation Senna/Docusate Sodium 1 tab 04/22/25 09:00 04/28/25 09:00 Docusate Sodium/Senna 50/8.6mg Tab PO 05/22/25 08:59 Not Given QAM PIPER Tamsulosin HCl 0.4 mg 04/20/25 21:00 04/27/25 20:38 Tamsulosin Hcl 0.4 Mg Cap PO 05/20/25 20:59 0.4 mg HS PIPER Administration Torsemide 10 mg 04/28/25 09:00 04/28/25 09:02 Torsemide 10 Mg Tab PO 05/28/25 08:59 10 mg QAM PIPER Administration PG Care Time/CCT Total # of Minutes Spent Total Time Spent with Patient: Total time spent is greater than 50% in coordination of care (as documented) at patient's floor/unit and/or counseling patient: Coding Level of Care Code 32716 SUB INP/OBS CARE 3/50MIN Diagnoses Acute on chronic diastolic heart failure with preserved ejection fraction I50.33 Acute on chronic respiratory failure with hypoxia and hypercapnia J96.21; J96.22 Chronic atrial flutter I48.92 S/P MVR (mitral valve replacement) Z95.2 S/P AVR (aortic valve replacement) Z95.2 [facility] R18.8
[2025-04-29 00:09] VITALS: RESP 18
[2025-04-29 08:17] LABS: Anion Gap 6.0 (3-11); Blood Urea Nitrogen 49.0 mg/dl (6-23); Calcium 9.2 mg/dl (8.6-10.3); Carbon Dioxide 44.0 mmol/L (21-32); Chloride 93.0 mmol/L (98-107); Creatinine Clr Calc Pharmacy 49.4 ml/min; Glucose 93.0 mg/dl (70-99(Fasting)); Magnesium 2.0 mg/dl (1.7-2.4); Potassium 3.5 mmol/L (3.5-5.1); Sodium 143.0 mmol/L (136-145)
[2025-04-29] MEDS: POTASSIUM CHLORIDE CRTAB 20 MEQ TABCR PO STA (09:30)
--- NOTE | 2025-04-29 09:45 | Hospitalist Progress Note ---
Date of Service April 29, 2025 Assessment & Plan (1) Shortness of breath: Plan: 65M with PMH HFpEF, R sided CHF, severe aortic stenosis s/p AVR, cirrhosis, chronic hypoxic resp failure on 2L rest, 4L exertion/qHS, CKD3 BPH, who presents with CHF #Acute on chronic HFpEF #R sided CHF -Secondary to non compliance with diuretic regimen -He was not taking diuretics as he didn't want to keep going to the bathroom to urinate -BNP elevated. CXR and CT chest showing moderate R pleural effusion Has been getting intravenous Lasix 60 mg twice daily and diuresing enough Appreciate cardiology input and recommendation Echo of the heart showed normal LV size, moderate concentric LVH, LVEF 65 to 70%, LA is moderately dilated, RV is moderately dilated, right ventricular systolic function is mildly reduced, there is bioprosthetic aortic valve mild to moderate tricuspid regurgitation and right ventricular systolic pressure is elevated to 40 to 50 mmHg Will monitor PRP Lasix doses have been decreased to 40 mg twice daily by the director of community center -Cumulative fluid balance is negative 2162 mls Clinically much better and not complaining of any shortness of breath at rest but is still requiring 4 L to maintain saturation Cumulative fluid balance is -4316 mL His furosemide doses have been increased to 60 mg twice daily He has been diuresing enough and will continue current dose of Lasix for now Will continue Lasix 40 mg intravenously twice a day Clinically stable with negative fluid balance of more than 10 L Diuretics have been changed to oral and the patient remains free from any symptoms Clinically stable with negative fluid balance of 11,417 mL and denies any symptoms at rest He will be discharged [facility] this afternoon to continue care #Cirrhosis with ongoing ascites and requiring frequent paracentesis -Not compliant with diuretics as above -Gets monthly paracentesis with last para 04/14 -May need another para but last dose of eliquis was 04/19 -Can plan for para on 04/22 if still here and eliquis has been held for 3 days -Of note, he is not on a bowel regimen -No asterixis on exam or confusion -Will start lactulose while hospitalized. He should have 2-3 Loose bowel movements per day He is status post 2.4 L paracentesis today and has been feeling okay following the procedure He will be given lactulose for bowel movement Has not had a bowel movement for the last few days -Has been moving bowels and feeling a lot better His abdomen is mildly distended but denies any discomfort and he will need periodic paracentesis if there is more distention or more fluid in the abdomen Palliative care encounter Appreciate palliative care input and recommendation DNR/DNI and continue current management. Right forearm swelling and redness Secondary to extravasation of heparin CT showed possible cellulitis but no abscess Has been getting doxycycline for that right forearm improved Knee pain Has significant osteoarthritis mostly on the left knee Has been complaining of increasing pain since last evening Cannot take any NSAIDs and has been getting diclofenac locally Has been on oxycodone as well for pain control Knee pain is better Denies any more pain #Moderate R pleural effusion -Suspect secondary to CHF/cirrhosis -Low suspicion for exudative/parapneumonic effusion -Chronic hypoxic resp failure on 2L rest, 4L exertion. At baseline -Will need repeat imaging once he is on a stable diuretic regimen to ensure it is improving - Remains asymptomatic #pAfib -Eliquis held for possible paracentesis -Currently on heparin drip for stroke prophylaxis -Continue metoprolol for rate control Eliquis needs to be on hold for 3 days prior to paracentesis Status post paracentesis and plan to restart Eliquis from tomorrow morning Rate is controlled with current medications #Lymphadenopathy -Incidentally noted multiple axillary and mediastinal lymphadenopathies -Can obtain US of these as outpatient #BPH -Follow with urology as OP. reviewed note from 01/26/25 -Will start flomax and finasteride to help decrease urinary frequency while on diuretics on discharge -Continue echavarria for now -Voiding trial prior to discharge. Can DC Echavarria and see if he can pass urine #Anemia -Chronic normocytic anemia -At baseline -No bleeding -Check Fe panel, B12, folate #CKD3 -At baseline -Avoid nephrotoxic agents if possible -Watch closely while on IV diuretics Creatinine is improved and will continue with oral diuretics now I spent a total of 34 minutes minutes coordinating, documenting, and providing care for this patient excluding time spent in the performance of separately billed services. This included personally reviewing all current laboratories and imaging studies, medical reconciliation, outpatient chart review and discussion with specialists Admission and Anticipated Discharge Date Admission Date: April 19, 2025 Subjective 04/21/2025 Patient was seen and examined in telemetry unit He has been complaining of bilateral knee pain since last night Denies any other significant symptoms except weakness Denies any nausea and/or vomiting 04/22/2025 The patient was seen and examined in telemetry unit He has had some extravasation of heparin in right forearm last night has been feeling much better Denies any significant symptoms and he will have paracentesis today 04/23/2025 Patient was seen and examined in telemetry unit He has been feeling better and denies any significant symptoms except weakness He has been waiting for physical therapy and appropriate disposition 04/24/2025 The patient was seen and examined in telemetry unit He has been stable and complains to have thirst 04/25/2025 The patient was seen and examined in telemetry unit He has been much better with profuse diuresis Has been saturating normally on room air Weakness seems to be improving and edema is much improved 04/26/2025 The patient was seen and examined in telemetry unit in presence of the He remains weak and lethargic otherwise denies any other significant symptoms Still diuresing enough with current dose of Lasix Awaiting placement Will ask for a palliative care evaluation while in the hospital 04/27/2025 Patient was seen and examined in telemetry unit He has been stable denies any significant symptoms Has been having enough diuresis with decreasing swelling in the legs Minimal nausea, no other significant symptoms 04/28/2025 The patient was seen and examined in telemetry unit He remains stable has been feeling much better today Denies any shortness of breath or chest pain, abdominal pain nausea or vomiting Awaiting placement awaiting 04/29/2025 The patient was seen and examined in telemetry unit He has been feeling much better and denies any significant send at rest Denies any abdominal distention or discomfort, nausea or vomiting and does not have any shortness of breath Will be discharged to [facility] this afternoon Review of Systems Review of Systems: All systems reviewed and are unremarkable except as noted below Physical Exam Physical Exam: Lying in bed without any acute distress Constitutional: well developed, well nourished, + ill appearing and + obese Eyes: PERRL, conjunctivae normal, anicteric sclerae ENMT: external ear and nose normal, oropharynx normal Neck: trachea midline, no thyromegaly Respiratory: no respiratory distress Auscultation: + diminished lung sounds and + crackles (Minimal bibasilar crackles ) Cardiovascular: Rate/Rhythm: regular rate and regular rhythm; not tachycardic Heart Sounds: normal S1 and normal S2; no murmur Extremities: + edema ( 1+ edema bilaterally with chronic skin changes) Gastrointestinal (Abdomen): Inspection/Auscultation: normal bowel sounds; abdomen not distended Percussion/Palpation: abdomen soft; abdomen nontender Musculoskeletal: Knee: + knee abnormal to inspection ( Swelling of the both knee joints), + effusion ( minimal effusion clinically) and + skin erythema ( erythema and swelling involving the right forearm and adjoining area elbo) Neurologic: normal touch/pain/proprioception and moves all extremities; no focal motor deficits Lymphatic: no cervical or axillary lymphadenopathy Results & Data Results & Data Vital Signs (Past 12 Hours) Vital Signs Temp Pulse Pulse Pulse Resp BP Pulse Ox 04/29/25 06:49 36.8 C 93 H 18 115/70 97 04/29/25 03:35 36.8 C 98 H 18 124/74 93 04/29/25 00:31 81 04/28/25 23:21 37.1 C 99 H 18 114/69 94 O2 Del Method O2 Flow Rate 04/29/25 06:49 Nasal Cannula 4 04/29/25 03:35 CPAP 4 04/29/25 00:31 04/28/25 23:21 CPAP 4 Laboratory Results BMP 04/29/25 06:40 Sodium 143 Potassium 3.5 Chloride 93 L Carbon Dioxide 44 H* BUN 49 H Creatinine 1.73 H Glucose 93 Calcium 9.2 Medications Administered Current Inpatient Medications Acetaminophen (Acetaminophen 500 Mg Tab) 500 mg PO Q6H PRN PRN Reason: fever/pain Stop: 05/19/25 22:54 Allopurinol (Allopurinol 100 Mg Tab) 100 mg PO DAILY [facility] Stop: 05/20/25 08:59 Last Admin: 04/29/25 09:31 Dose: 100 mg Apixaban (Apixaban 5 Mg Tablet) 5 mg PO BID [facility] Stop: 05/23/25 08:59 Last Admin: 04/29/25 09:30 Dose: 5 mg Aspirin (Aspirin 81 Mg Ectab) 81 mg PO QAM [facility] Stop: 05/22/25 15:29 Last Admin: 04/28/25 09:00 Dose: 81 mg Diclofenac Sodium (Diclofenac Sod 1% Gel 100 Gm Tube) 2 gm EXT Q6H PRN; Protocol PRN Reason: joint pain Stop: 05/20/25 03:21 Doxycycline Hyclate (Doxycycline Hyclate 100 Mg Cap) 100 mg PO BID [facility] Stop: 04/29/25 20:59 Last Admin: 04/29/25 09:32 Dose: 100 mg Finasteride (Finasteride 5 Mg Tab) 5 mg PO QAM [facility] Stop: 05/21/25 08:59 Last Admin: 04/29/25 09:30 Dose: 5 mg Hydromorphone HCl (Hydromorphone Inj 0.5 Mg/0.5 Ml Syr) 0.5 mg IV Q6H PRN PRN Reason: Pain Stop: 05/03/25 22:54 Promethazine HCl (Phenergan) 6.25 mg in 50.25 mls @ 201 mls/hr IV Q6H PRN PRN Reason: Nausea And Vomiting Stop: 05/19/25 22:54 Lactic Acid (Ammonium Lactate 12% Lotion 225 Gm Btl) 1 gm EXT BID [facility] Stop: 05/20/25 08:59 Last Admin: 04/29/25 09:31 Dose: 1 gm Lactulose (Lactulose Syrup 20 Gm/30 Ml Udc) 30 gm PO TID [facility] Stop: 05/25/25 08:00 Last Admin: 04/29/25 09:30 Dose: 30 gm Metoprolol Succinate (Metoprolol Succ 50mg Ext Rel Tab) 100 mg PO BID [facility] Stop: 05/20/25 08:59 Last Admin: 04/29/25 09:31 Dose: 100 mg Ondansetron HCl (Ondansetron 4 Mg Od Tab) 4 mg PO Q4H PRN PRN Reason: Nausea And Vomiting Stop: 05/27/25 10:41 Last Admin: 04/28/25 20:13 Dose: 4 mg Oxycodone HCl (Oxycodone Hcl Ir 5 Mg Tab (Immediate Release)) 5 - 10 mg PO QID PRN PRN Reason: Pain Stop: 05/03/25 22:54 Last Admin: 04/29/25 03:38 Dose: 5 mg Phenazopyridine HCl (Phenazopyridine Hcl 200 Mg Tab) 200 mg PO TID PRN PRN Reason: Bladder pain Stop: 05/24/25 22:34 Last Admin: 04/29/25 03:39 Dose: 200 mg Polyethylene Glycol (Polyethylene (Miralax) 17 Gm Pack) 17 gm PO DAILY PRN PRN Reason: Constipation Stop: 05/21/25 21:02 Last Admin: 04/22/25 08:46 Dose: 17 gm Senna/Docusate Sodium (Docusate Sodium/Senna 50/8.6mg Tab) [facility] [place] Stop: 05/22/25 08:59 Last Admin: 04/29/25 09:30 Dose: 1 tab Tamsulosin HCl (Tamsulosin Hcl 0.4 Mg Cap) 0.4 mg PO [facility] Stop: 05/20/25 20:59 Last Admin: 04/28/25 20:10 Dose: 0.4 mg Torsemide (Torsemide 10 Mg Tab) 10 [facility] [place] Stop: 05/28/25 08:59 Last Admin: 04/29/25 09:31 Dose: 10 mg
[2025-04-29 11:52] VITALS: BP 105/64; PULSE 97; TEMP 97.9; O2SAT 96
--- NOTE | 2025-04-29 16:35 | Cardiology Progress Note ---
Date of Service April 29, 2025 Assessment & Plan (1) Acute on chronic diastolic heart failure with preserved ejection fraction: (2) Acute on chronic respiratory failure with hypoxia and hypercapnia: (3) Chronic atrial flutter: (4) S/P MVR (mitral valve replacement): (5) S/P AVR (aortic valve replacement): (6) Ascites: Plan Patient is a 65 year old male with complex history of HFpEF, right heart failure, chronic respiratory failure, history of AVR and MVR with history of endocarditis, recurrent ascites, and non compliance with diuretics who presented to [facility] with worsening SOB/fluid retention consistent with acute on chronic HFpEF and acute right sided HF. Patient's at bedside states that patient avoids the evening dose of diuretics at home because he then has to go to the bathroom to urinate which is uncomfortable due to pain in his knees Acute HFpEF - improved Chronic Atrial flutter Right Heart failure - improved Ascites s/p Bioprosthetic MVR S/P Bioprosthetic AVR DJD USHA on CKD - may have to accept some azotemia for attaining euvolemic status Recommendations: PO diuretics continue anticoagulation -> Eliquis GDMT for HFpEF as tolerated avoid hypovolemia keep patient euvolemic keep LE elevated when sitting salt restriction history of hyperkalemia, avoid use of spironolactone. PT/OT OOB to chair with assistance as tolerated Stable from cardiac standpoint for SYEDA Admission and Anticipated Discharge Date Admission Date: April 19, 2025 Subjective Patient on exam is lying in bed in NAD; no c/o cp, sob, palpitations patient for SYEDA today Review of Systems Review of Systems: as per hpi Physical Exam Eyes: anicteric sclerae, pink conjunctiva Neck: supple, NT Respiratory: BLBS, no rales, no wheezing Cardiovascular: Rate/Rhythm: regular rhythm and + irregularly irregular Heart Sounds: + murmur (+1/6 systolic mumur) Gastrointestinal (Abdomen): soft, NT, obese, BS+ Skin: + erythema (bilateral lower extremities ) Neurologic: PERRL, EOMI, accommodation nl, no face palsy, no dysarthria Psychiatric: A+Ox3, euthymic affect Results & Data Vital Signs (Past 12 Hours) Vital Signs Vital Signs Temp 36.6 C 04/29/25 14:52 Pulse 97 H 04/29/25 14:52 Resp 18 04/29/25 14:52 BP 105/64 04/29/25 14:52 Pulse Ox 96 04/29/25 14:52 O2 Del Method Nasal Cannula 04/29/25 11:25 O2 Flow Rate 4 04/29/25 11:25 Intake & Output 04/28/25 04/29/25 04/29/25 18:59 06:59 18:59 Intake Total 240 / 790 550 / 790 Output Total 450 / 1300 850 / 1300 Balance -210 / -510 -300 / -510 Weight 105.4 kg 105.4 kg Intake: Oral 240 / 790 550 / 790 Output: Urine Amount (Catheter) 450 / 1300 850 / 1300 Lara/Indwelling 450 / 1300 850 / 1300 Other: Weight Measurement Method Built in [facility] Pulse Pulse Pulse Resp BP Pulse Ox 04/29/25 14:52 36.6 C 98 H 97 H 18 105/64 96 04/29/25 12:31 36.6 C 98 H 97 H 18 105/64 96 04/29/25 11:25 36.6 C 97 H 18 105/64 96 04/29/25 09:00 04/29/25 07:00 98 H 04/29/25 06:49 36.8 C 93 H 18 115/70 97 O2 Del Method O2 Flow Rate 04/29/25 14:52 04/29/25 12:31 04/29/25 11:25 Nasal Cannula 4 04/29/25 09:00 Nasal Cannula 4 04/29/25 07:00 04/29/25 06:49 Nasal Cannula 4 Laboratory Results Laboratory Results WBC 5.27 K/ul (4.8-10.8) 04/28/25 05:52 RBC 3.38 M/uL (4.70-6.10) L 04/28/25 05:52 Hgb 8.5 g/dL (14.0-18.0) L 04/28/25 05:52 Hct 29.6 % (42.0-52.0) L 04/28/25 05:52 MCV 87.6 fL (80.0-100.0) 04/28/25 05:52 MCH 25.1 pg (25.0-34.0) 04/28/25 05:52 MCHC 28.7 g/dL (32.0-36.0) L 04/28/25 05:52 RDW Std Deviation 55.9 fL (36.4-46.3) H 04/28/25 05:52 RDW Coeff of Arely 17.4 % (11.5-14.5) H 04/28/25 05:52 Plt Count 207 K/uL (130-400) 04/28/25 05:52 MPV 11.1 fL (9.4-12.4) 04/28/25 05:52 Immature Gran % (Auto) 0.6 % 04/28/25 05:52 Neut % (Auto) 70.2 % 04/28/25 05:52 Lymph % (Auto) 10.6 % 04/28/25 05:52 [place] % (Auto) 12.3 % 04/28/25 05:52 Eos % (Auto) 6.1 % 04/28/25 05:52 Baso % (Auto) 0.2 % 04/28/25 05:52 Neut # (Auto) 3.70 K/uL (1.40-6.50) 04/28/25 05:52 Lymph # (Auto) 0.56 K/uL (1.20-3.40) L 04/28/25 05:52 [place] # (Auto) 0.65 K/uL (0.11-0.59) H 04/28/25 05:52 Eos # (Auto) 0.32 K/uL (0.00-0.50) 04/28/25 05:52 Baso # (Auto) 0.01 K/uL (0.00-0.20) 04/28/25 05:52 Immature Gran # (Auto) 0.03 K/uL (0.01-0.20) 04/28/25 05:52 PT 11.4 Seconds (9.0-12.0) 04/19/25 19:05 INR 1.1 (0.9-1.1) 04/19/25 19:05 Heparin Anti-Xa, Unfract 0.10 IU/ml (0.3-0.7) L 04/21/25 14:09 Sodium 143 mmol/L (136-145) 04/29/25 06:40 Potassium 3.5 mmol/L (3.5-5.1) 04/29/25 06:40 Chloride 93 mmol/L (98-107) L 04/29/25 06:40 Carbon Dioxide 44 mmol/L (21-32) H* 04/29/25 06:40 Anion Gap 6 (3-11) 04/29/25 06:40 BUN 49 mg/dl (6-23) H 04/29/25 06:40 Creatinine 1.73 mg/dl (0.6-1.4) H 04/29/25 06:40 Est Cr Clr Drug Dosing 49.4 ml/min 04/29/25 06:40 eGFR 43.00 04/29/25 06:40 BUN/Creatinine Ratio 28.3 (10-20) H 04/29/25 06:40 Glucose 93 mg/dl (70-99(Fasting)) 04/29/25 06:40 Calcium 9.2 mg/dl (8.6-10.3) 04/29/25 06:40 Phosphorus 3.2 mg/dl (2.5-4.9) 04/25/25 06:20 Magnesium 2.0 mg/dl (1.7-2.4) 04/29/25 06:40 Iron 21 mcg/dl (35-175) L 04/22/25 06:24 Unsaturated IBC 309 mcg/dl (155-355) 04/22/25 06:24 Total Bilirubin 0.5 mg/dl (0.2-1.0) 04/20/25 07:25 Direct Bilirubin 0.2 mg/dl (0-0.2) 04/19/25 18:57 AST 15 U/L (13-39) 04/20/25 07:25 ALT 8 U/L (7-52) 04/20/25 07:25 Alkaline Phosphatase 90 U/L (34-104) 04/20/25 07:25 Troponin I High Sens 17.5 pg/ml (0-20) 04/19/25 18:57 B-Natriuretic Peptide 1339 pg/ml (0-100) H 04/19/25 18:57 Total Protein 6.9 gm/dl (6.0-8.3) 04/20/25 07:25 Albumin 3.7 gm/dl (3.4-5.0) 04/20/25 07:25 Globulin 3.2 gm/dl (2.5-4.0) 04/20/25 07:25 Albumin/Globulin Ratio 1.2 (0.9-2) 04/20/25 07:25 Lipase 12 U/L (11-82) 04/19/25 18:57 Vitamin B12 298 pg/ml (180-914) 04/22/25 06:24 Folate 13.50 ng/ml (>5.38) 04/22/25 06:24 TSH 5.763 uIu/ml (0.300-4.500) H 04/20/25 07:25 Free T4 0.88 ng/dl (0.61-1.60) 04/20/25 07:25 SARS-CoV-2 (PCR) NEGATIVE (Negative) 04/19/25 21:57 Influenza Type A (PCR) Negative (Neg) 04/19/25 21:57 Influenza Type B (PCR) Negative (Neg) 04/19/25 21:57 RSV (RT-PCR) Negative (Neg) 04/19/25 21:57 Blood Type O Positive 04/21/25 20:05 Antibody Screen NEGATIVE 04/21/25 20:05 Impressions Chest X-Ray 04/19/25 18:41 Clinical History: Chest pain Technique: A frontal view of the chest was obtained Comparison is made to the prior examination dated 12/03/2024 Findings: There is right lower lobe opacity that could be due to pneumonia. There is also suspected pulmonary vascular congestion. The heart is mildly enlarged. There is a prosthetic cardiac valve. Sternal wires are present. No definite pneumothorax is seen. There is a small to moderate sized right pleural effusion. No fracture is noted. No foreign body is seen Impression: 1. Cardiomegaly and pulmonary vascular congestion 2. Possible right lower lobe pneumonia 3. Right pleural effusion ACT 112: Positive. There are findings on this exam that require communication between the performing entity and the patient following Patient Test Result Information Act ([place] ACT 112) guidelines. Electronically signed by Ayo Yee 04-19-2025 7:[address] 04/19/25 22:46 EXAM: CT chest diagnostic wo con CLINICAL HISTORY: pleural effusion, pnx TECHNIQUE: Contiguous axial CT images of the chest were acquired without administration of intravenous contrast. Coronal and sagittal reconstructions were obtained. One of the following dose reduction techniques were utilized for this exam: Automated exposure control, adjustment of the mA and/or kV according to patient size, use of iterative reconstruction. COMPARISON: Correlation with the 04/19/2025 18:30:00 FILM READER chest X-ray. FINDINGS: Lungs: No evidence of consolidation focal lesions. No pulmonary nodules or masses are identified. No evidence of interstitial lung disease or emphysema. Moderate right pleural effusion with associated subsegmental compressive atelectasis of the right lower lobe. Trace left pleural effusion. Bibasilar streaky atelectasis and scarring in the right upper lobe. Mediastinum: The mediastinum is normal in size and contour. Multiple small mediastinal lymphadenopathies. Multiple left axillary lymphadenopathies, Ultarsound is needed. There is mild cardiomegaly with mitral and aortic prosthetic valves. Hilar Structures: The hilar structures appear normal without enlargement or abnormality. Atheromatous calcifications of the aorta and coronary arteries. Trachea and Main Bronchi: The trachea and main bronchi are patent without evidence of obstruction or abnormality. Chest Wall: The chest wall is unremarkable with no evidence of soft tissue or bony abnormalities. Median sternotomy wires are seen. Upper Abdomen: [id number] ascites. Liver cirrhosis. Bones: No evidence of fracture or lytic/sclerotic lesions. Moderate thoracic spondylosis. IMPRESSION: Moderate right pleural effusion with associated subsegmental compressive atelectasis of the right lower lobe. Trace left pleural effusion. Bibasilar streaky atelectasis and scarring in the right upper lobe. Mild cardiomegaly. Multiple small mediastinal lymphadenopathies. Multiple left axillary lymphadenopathies, Ultrasound is needed. Moderate thoracic spondylosis. [id number] ascites. Liver cirrhosis. Electronically signed by Cody Rowell 04-20-2025 07:[address] 04/21/25 19:50 Exam(s): CT EXTREMITY RIGHT UPPER Without Contrast EXAM: CT Right Upper Extremity Without Intravenous Contrast CLINICAL HISTORY: Reason for exam: Swelling, heparin. TECHNIQUE: Axial computed tomography images of the right upper extremity without intravenous contrast. CTDI is 6.03 mGy and DLP is 187.1 mGy-cm. Automated exposure control was utilized for the study. A dose lowering technique was utilized adhering to the principles of ALARA. COMPARISON: No relevant prior studies available. FINDINGS: Bones/joints: [id number] degenerative changes of the 1st carpometacarpal joint. The radius and ulna are intact and normally aligned. Bone mineral density is normal. No acute fracture. Soft tissues: There is severe circumferential subcutaneous edema throughout the entire right forearm. No subcutaneous emphysema, abscess, or foreign body is identified. Vasculature: Moderate diffuse arterial calcification throughout the radial artery. IMPRESSION: There is severe circumferential subcutaneous edema throughout the entire right forearm. No subcutaneous emphysema, abscess, or foreign body is identified. Consider cellulitis. Electronically signed by: Florian Moe MD 04/21/25 23:43 PM Paracentesis Ultrasound 04/22/25 08:30 ULTRASOUND-GUIDED PARACENTESIS CLINICAL HISTORY: Ascites PROCEDURE: Procedure and risks were explained. Informed consent was obtained. A final timeout was completed. The abdomen was prepped and draped in sterile fashion. 1% lidocaine was utilized for skin anesthesia. Utilizing ultrasound guidance, a 5 Sami safety centesis catheter was advanced into the left lower quadrant pocket of ascites. Ultrasound images were obtained. 2.4 L of ascites fluid was removed and discarded. The catheter was removed and Band-Aid applied. The patient tolerated the procedure well. Vital signs will be monitored postprocedure. IMPRESSION: Ultrasound-guided paracentesis as above. Performed, dictated, and signed by Lon Joseph PA-C; to be co-signed by Dr. Taz Grant. Electronically signed by: Taz Grant M.D. 04/22/2025 2:50 PM Diagnostic Findings Comprehensive Metabolic Panel 04/29/25 Range/Units 06:40 Sodium 143 (136-145) mmol/L Potassium 3.5 (3.5-5.1) mmol/L Chloride 93 L (98-107) mmol/L Carbon Dioxide 44 H* (21-32) mmol/L BUN 49 H (6-23) mg/dl Creatinine 1.73 H (0.6-1.4) mg/dl Glucose 93 (70-99(Fasting)) mg/dl Calcium 9.2 (8.6-10.3) mg/dl Intake and Output 04/29/25 04/29/25 04/29/25 06:59 14:59 22:59 Intake Total 250 / 790 Output Total 400 / 1300 Balance -150 / -510 Intake: Oral 250 / 790 Output: Urine Amount (Catheter) 400 / 1300 Lara/Indwelling 400 / 1300 Other: Weight 105.4 kg 105.4 kg Weight Measurement Method Built in [facility] Patient Weight 04/30/25 06:59 Weight 105.4 kg Medications Administered Home Medications Medication Instructions Recorded Confirmed Last Taken aspirin 81 mg capsule 81 mg PO QAM 12/05/23 04/20/25 11/28/24 cholecalciferol (vitamin D3) 125 125 mcg PO DAILY 12/05/23 04/20/25 11/28/24 mcg (5,000 unit) tablet (Vitamin D3) coenzyme Q10 100 mg capsule 100 mg PO DAILY 12/05/23 04/20/25 11/28/24 (CoQ-10) magnesium oxide 400 mg (241.3 mg 400 mg PO DAILY #30 tabs 12/12/23 04/20/25 11/28/24 magnesium) tablet empagliflozin 10 mg tablet 10 mg PO DAILY #30 tabs 11/12/24 04/20/25 11/28/24 (Jardiance) allopurinol 100 mg tablet 100 mg PO DAILY 11/28/24 01/26/25 11/28/24 ammonium lactate 12 % lotion 1 applic topical BID 11/28/24 04/20/25 11/28/24 metoprolol succinate 100 mg 100 mg PO BID 11/28/24 04/20/25 11/28/24 tablet,extended release 24 hr potassium chloride 20 mEq 20 meq PO DAILY 01/26/25 01/26/25 Unknown tablet,extended release(part/cryst) apixaban 5 mg tablet 5 mg PO BID #0 tabs 04/29/25 04/20/25 11/28/24 diclofenac sodium 1 % topical gel 2 g EXT Q6H PRN pain #50 grams 04/29/25 Unknown (Voltaren Arthritis Pain) finasteride 5 mg tablet 5 mg PO QAM #30 tabs 04/29/25 Unknown lactulose 10 gram/15 mL oral 30 g (45 mL) PO TID #30 doses 04/29/25 Unknown solution oxycodone 5 mg tablet 5 mg PO QID PRN pain #20 tabs 04/29/25 Unknown tamsulosin 0.4 mg capsule 0.4 mg PO HS #30 caps 04/29/25 Unknown torsemide 20 mg tablet 20 mg PO BID #0 tabs 04/29/25 Unknown PG Care Time/CCT Total # of Minutes Spent Total Time Spent with Patient: Total time spent is greater than 50% in coordination of care (as documented) at patient's floor/unit and/or counseling patient: Coding Level of Care Code 94613 SUB INP/OBS CARE 3/50MIN Diagnoses Acute on chronic diastolic heart failure with preserved ejection fraction I50.33 Acute on chronic respiratory failure with hypoxia and hypercapnia J96.21; J96.22 Chronic atrial flutter I48.92 S/P MVR (mitral valve replacement) Z95.2 S/P AVR (aortic valve replacement) Z95.2 Ascites R18.8
--- NOTE | 2025-04-29 16:55 | Discharge Summary ---
Date of Service April 29, 2025 Admission HPI Per Admitting Provider History obtained from patient and records. Medical history significant for chronic right-sided heart failure (EF 65 to 70%, TTE 2024), A-fib on Eliquis, hypertension, history of bioprosthetic AVR/MV repair, hx streptococcal endocarditis status post treatment hx CVA, VENUS on CPAP, cirrhosis, CRI on Jardiance (baseline creatinine 1.7), history of BPH with LUTS, chronic anemia (baseline hemoglobin 8-9), chronic bila teral knee arthritis Last confinement December 2024 for streptococcal bacteremia secondary to presumptive endocarditis. Patient discharged on cefazolin course. Monthly outpatient therapeutic paracenteses at [facility] following G surfacer operator recommendations since last month. Last paracenteses was last week 5 L ascitic fluid drained. Patient stopped taking home diuretic since last week to avoid need to go to bathroom to urinate. Patient has troubled by chronic bilateral knee pain every time he has to to go to the bathroom to pee. Patient noted progressive shortness of breath, abdominal distention, weight gain and fluid retention over the last few days. No chest pain. No abdominal pain. Bilateral leg swelling with usual leg redness as per patient. Cough productive of clear sputum. No fever, no chills. No aspiration. Not sure about sick contacts. Patient compliant with CPAP. Denies OTC NSAID intake. Patient brought to ER for evaluation. 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 Admission Exam Per Admitting Provider Physical Exam: GENERAL: uncomfortable, obese, episodic tachypnea SKIN: Pallor, warm HEENT: Bespectacled, pale palpebral conjunctivae, no ptosis, moist buccal mucosa NECK : Supple, distended neck veins, no tenderness CHEST : Decreased breath sounds, no tenderness HEART : RRR, no obvious murmurs ABDOMEN: Marked distention, nontender EXTREMITIES : Bilateral LE swelling with erythema (chronic as per patient)/no tenderness, palpable pulses, no other conspicuous deformities noted NEUROLOGIC : Coherent, no facial asymmetry, no other gross focality Principal Diagnosis Acute on chronic HFpEF, right-sided CHF, cirrhosis of the liver with ascites requiring frequent paracentesis, atrial fibrillation on Eliquis, CKD Discharge Exam Lying in bed without any acute distress Constitutional well developed, well nourished, + ill appearing and + obese Eyes PERRL, conjunctivae normal, anicteric sclerae ENMT external ear and nose normal, oropharynx normal Neck trachea midline, no thyromegaly Respiratory no respiratory distress Auscultation: + diminished lung sounds and + crackles (Minimal bibasilar crackles ) Cardiovascular Rate/Rhythm: regular rate and regular rhythm; not tachycardic Heart Sounds: normal S1 and normal S2; no murmur Extremities: + edema ( 1+ edema bilaterally with chronic skin changes) Gastrointestinal (Abdomen) Inspection/Auscultation: normal bowel sounds; abdomen not distended Percussion/Palpation: abdomen soft; abdomen nontender Musculoskeletal Knee: + knee abnormal to inspection ( Swelling of the both knee joints), + effusion ( minimal effusion clinically) and + skin erythema ( erythema and swelling involving the right forearm and adjoining area elbo) Neurologic normal touch/pain/proprioception and moves all extremities; no focal motor deficits Lymphatic no cervical or axillary lymphadenopathy Discharge Data Allergies Allergy/AdvReac Type Severity Reaction Status Date / Time amoxicillin Allergy Intermediate Rash Verified 01/26/25 09:30 cyclobenzaprine AdvReac Intermediate Rash Verified 01/26/25 09:30 Consultations 04/19/25 21:19 ED Decision to Admit Stat 04/19/25 22:55 Consult Cardiology Routine 04/26/25 11:04 Consult Palliative Care Routine Ordered Studies 04/19/25 22:46 CT chest diagnostic wo con Stat 04/21/25 19:50 CT forearm RT wo con Stat 04/22/25 08:30 IR paracentesis abd w/img US Routine Hospital Course (1) Shortness of breath: 65M with PMH HFpEF, R sided CHF, severe aortic stenosis s/p AVR, cirrhosis, chronic hypoxic resp failure on 2L rest, 4L exertion/qHS, CKD3 BPH, who presents with CHF #Acute on chronic HFpEF #R sided CHF -Secondary to non compliance with diuretic regimen -He was not taking diuretics as he didn't want to keep going to the bathroom to urinate -BNP elevated. CXR and CT chest showing moderate R pleural effusion Has been getting intravenous Lasix 60 mg twice daily and diuresing enough Appreciate cardiology input and recommendation Echo of the heart showed normal LV size, moderate concentric LVH, LVEF 65 to 70%, LA is moderately dilated, RV is moderately dilated, right ventricular systolic function is mildly reduced, there is bioprosthetic aortic valve mild to moderate tricuspid regurgitation and right ventricular systolic pressure is elevated to 40 to 50 mmHg Will monitor PRP Lasix doses have been decreased to 40 mg twice daily by the piling cutter -Cumulative fluid balance is negative 2162 mls Clinically much better and not complaining of any shortness of breath at rest but is still requiring 4 L to maintain saturation Cumulative fluid balance is -4316 mL His furosemide doses have been increased to 60 mg twice daily He has been diuresing enough and will continue current dose of Lasix for now Will continue Lasix 40 mg intravenously twice a day Clinically stable with negative fluid balance of more than 10 L Diuretics have been changed to oral and the patient remains free from any symptoms Clinically stable with negative fluid balance of 11,417 mL and denies any symptoms at rest He will be discharged [facility] this afternoon to continue care #Cirrhosis with ongoing ascites and requiring frequent paracentesis -Not compliant with diuretics as above -Gets monthly paracentesis with last para 04/14 -May need another para but last dose of eliquis was 04/19 -Can plan for para on 04/22 if still here and eliquis has been held for 3 days -Of note, he is not on a bowel regimen -No asterixis on exam or confusion -Will start lactulose while hospitalized. He should have 2-3 Loose bowel movements per day He is status post 2.4 L paracentesis today and has been feeling okay following the procedure He will be given lactulose for bowel movement Has not had a bowel movement for the last few days -Has been moving bowels and feeling a lot better His abdomen is mildly distended but denies any discomfort and he will need periodic paracentesis if there is more distention or more fluid in the abdomen Palliative care encounter Appreciate palliative care input and recommendation DNR/DNI and continue current management. Right forearm swelling and redness Secondary to extravasation of heparin CT showed possible cellulitis but no abscess Has been getting doxycycline for that right forearm improved Knee pain Has significant osteoarthritis mostly on the left knee Has been complaining of increasing pain since last evening Cannot take any NSAIDs and has been getting diclofenac locally Has been on oxycodone as well for pain control Knee pain is better Denies any more pain #Moderate R pleural effusion -Suspect secondary to CHF/cirrhosis -Low suspicion for exudative/parapneumonic effusion -Chronic hypoxic resp failure on 2L rest, 4L exertion. At baseline -Will need repeat imaging once he is on a stable diuretic regimen to ensure it is improving - Remains asymptomatic #pAfib -Eliquis held for possible paracentesis -Currently on heparin drip for stroke prophylaxis -Continue metoprolol for rate control Eliquis needs to be on hold for 3 days prior to paracentesis Status post paracentesis and plan to restart Eliquis from tomorrow morning Rate is controlled with current medications #Lymphadenopathy -Incidentally noted multiple axillary and mediastinal lymphadenopathies -Can obtain US of these as outpatient #BPH -Follow with urology as OP. reviewed note from 01/26/25 -Will start flomax and finasteride to help decrease urinary frequency while on diuretics on discharge -Continue echavarria for now -Voiding trial prior to discharge. Can DC Echavarria and see if he can pass urine #Anemia -Chronic normocytic anemia -At baseline -No bleeding -Check Fe panel, B12, folate #CKD3 -At baseline -Avoid nephrotoxic agents if possible -Watch closely while on IV diuretics Creatinine is improved and will continue with oral diuretics now I spent a total of 34 minutes minutes coordinating, documenting, and providing care for this patient excluding time spent in the performance of separately billed services. This included personally reviewing all current laboratories and imaging studies, medical reconciliation, outpatient chart review and discussion with specialists Total Time Total Time Spent Total Time Spent (In Minutes): 45 MInutes Discharge Plan Discharge Items Patient Disposition: Transfer Inpatient Rehab Fac Reason For Visit: CHF Discharge Diagnosis: Acute on chronic HFpEF, right-sided CHF, cirrhosis of the liver with ascites requiring frequent paracentesis, atrial fibrillation on Eliquis, CKD Condition on Discharge: Fair Activity: Resume your previous activity Non-emergency contact: Primary Care Provider Call non-emergency contact if: you have any medication questions and your symptoms worsen Follow-up/Referrals: Yuriy Dempsey MD [Primary Care Provider] - Diet: Heart Healthy Fluids: 2000ml (8 cups) Addtl Attending Provider Instructions: Please take precautions to avoid falls Continue PT and OT as advised Take your medications as advised Try to use less of your narcotic pain medications You will need to have periodic paracentesis for ascites due to your cirrhosis Please keep appointments with your healthcare providers Pending Studies at Discharge: No Stand-Alone Forms: My [facility] Skilled Items Patient informed of condition?: Yes DNR: Yes Discharge Level of Care: Acute rehab Communicable Disease: No Discharge Prognosis: Stable Lines: None Urinary Catheter: Yes Medications and DC Order Prescriptions: New tamsulosin 0.4 mg Capsule 0.4 mg PO HS Qty: 30 0RF finasteride 5 mg Tablet 5 mg PO QAM Qty: 30 0RF oxycodone 5 mg Tablet 5 mg PO QID PRN (Reason: pain) Qty: 20 0RF lactulose 10 gram/15 mL Solution 30 g PO TID Qty: 30 0RF diclofenac sodium [Voltaren Arthritis Pain] 1 % Gel 2 g EXT Q6H PRN (Reason: pain) Qty: 50 0RF Continued potassium chloride 20 mEq tablet,ER particles/crystals 20 meq PO DAILY coenzyme Q10 [CoQ-10] 100 mg Capsule 100 mg PO DAILY cholecalciferol (vitamin D3) [Vitamin D3] 125 mcg (5,000 unit) Tablet 125 mcg PO DAILY aspirin 81 mg Capsule 81 mg PO QAM magnesium oxide 400 mg (241.3 mg magnesium) Tablet 400 mg PO DAILY Qty: 30 1RF Jardiance 10 mg Tablet 10 mg PO DAILY Qty: 30 0RF ammonium lactate 12 % lotion 1 applic TOPICAL BID Rx Instructions: Apply to legs twice dialy allopurinol 100 mg tablet 100 mg PO DAILY metoprolol succinate 100 mg tablet extended release 24 hr 100 mg PO BID Changed torsemide 20 mg tablet 20 mg PO BID Qty: 0 0RF apixaban 5 mg Tablet 5 mg PO BID Qty: 0 0RF Rx Instructions: per pt he only takes one tab daily Discontinued allopurinol [Zyloprim] 100 mg tablet 100 mg PO DAILY Discharge Orders: Discharge Order (Routine); Ordered 04/29/25 Ordered By: Gael Frost Admission Data Admit Date/Time: 04/19/25 22:26 Attending Provider: Gael Frost Admit Provider: Alvarez Stacy Primary Care Provider: Yuriy Dempsey Other Providers: Edd Joyner; [facility]; Alvarez Stacy; Deepika Askew; Armin Young; Silvestre Alas; Haja Segundo; Sebastian Singh; John Wallace; Nataly Sweeney; Chelsey Melgar; Sona Castillo; Celia Andrea; Deepika Qiu; Noe Lord; Umair Rojas; April Guidry; Merry Cabello; Elda Duke; Alber Thakkar; Samson Melo; Danielle Alas; Cookie Boswell; Marvin Rowley; Russell Camara; Sadaf Guevara; Wendie Conn; Yulisa Haro Other Interventions: Discharge Summary Assessment (RN) Last Done: 04/29/25 14:52
== END 2025-04-29 13:40 | DRG 291 ==
LOC: ED 18:16 → 2S 22:26 → SUATTDRO 22:26 → 2S 04-20 00:38